=== PATIENT | female | born 1950 | race Caucasian/White ===

== ENCOUNTER 2023-09-17 12:29 | Inpatient (IN) | payer MEDICARE, OTHER, SELFPAY ==
[2023-09-17] VITALS (25 sets, daily range): BP systolic 106–139; BP diastolic 54–86; PULSE 78–110; RESP 14–21; TEMP 36.2–37.2; O2SAT 89–97; BMI 25.7; BMI 26.6
--- NOTE | 2023-09-17 12:45 | ECG_ITS ---
The [facility] Test Date: 2023-09-17 Pat Name: RODRIGUE WALLACE Department: Room: - Gender: Female Forms Analysis Manager: : 1950 Requested By: KANDACE QUIROZ Order Number: [id number] Reading MD: JOSÉ MANUEL QUINTANILLA Measurements Intervals [place] Rate: 98 P: 43 NE: 152 QRS: 36 QRSD: 82 T: 46 QT: 350 QTc: 405 Interpretive Statements 1100 Sinus rhythm [address] depression Inferolateral ST/T wave changes, myocardial ischemia can't be exlcuded 9130 borderline ECG baseline artifact present Electronically Signed On 09-18-2023 7:12:14 EST by JOSÉ MANUEL QUINTANILLA
--- NOTE | 2023-09-17 12:49 | XR_ITS ---
The [address] [address] Patient Name: RODRIGUE WALLACE MRN: [id number] date: 1950 Sex: F Assigned Patient Location: ER Current Patient Location: ED.MAIN Accession/Order Number: [id number] Exam Date: 09/17/2023 13:15 Report Date: 09/17/2023 13:50 At the request of: KIMANI MOHAN Procedure: XR chest 1V EXAMINATION: XR chest 1V HISTORY: altered mentation, cough COMPARISON: No relevant comparison available. FINDINGS: LUNGS: No significant pulmonary parenchymal abnormalities. VASCULATURE: No increased pulmonary vasculature. PLEURA: No pneumothorax, effusion, or pleural thickening. CARDIAC: No cardiomegaly or cardiac silhouette abnormality. MEDIASTINUM: No visible mass or adenopathy. BONES: No fracture or visible bone lesion. OTHER: Negative. XR/XR chest 1V IMPRESSION: 1. No acute cardiopulmonary process. Electronically authenticated by: SARABJIT ZAYAS Date: 09/17/2023 13:50
[2023-09-17 13:11] LABS: SARS-CoV-2 Ag POSITIVE (NEGATIVE)
[2023-09-17] MEDS: 0.9 % SODIUM CHLORIDE 1,000 ML 999 ML IV (13:13)
[2023-09-17] MEDS: INSULIN REGULAR 300 UNITS/3 ML 10 UNIT IV (13:14)
[2023-09-17 13:18] LABS: PCO2 VBG 44.1 mmHg (40.0-52.0)
--- NOTE | 2023-09-17 13:22 | ED.GENADUL1 ---
HPI - General Adult General Chief complaint: Recheck/Abnormal Lab/Rx Stated complaint: hyperglycemia Time Seen by Provider: 09/17/23 12:32 Source: other Source information: EMS Mode of arrival: ambulance Limitations: altered mental status Limitations comment: AxOx2, lethargic History of Present Illness HPI narrative: Patient's insulin pump stopped working. She cannot tell me when this happened or when her last dose insulin was taken. She is confused. EMS brought her to our ED, reported glucose greater than 600 at home. Patient told me that he has Covid but that she tested negative either today or yesterday. She complains of low grade fever, cough, achiness and fatigue. Related Data Home Medications Medication Instructions Recorded Confirmed amlodipine 10 mg tablet 10 mg PO QDAY 09/17/23 09/17/23 carisoprodol 350 mg tablet 350 mg PO BID 09/17/23 09/17/23 celecoxib 200 mg capsule 200 mg PO QDAY 09/17/23 09/17/23 esomeprazole magnesium 40 mg 40 mg PO Q24H 09/17/23 09/17/23 capsule,delayed release ezetimibe 10 mg tablet 10 mg PO QDAY 09/17/23 09/17/23 gabapentin 100 mg capsule 100 mg PO Q12H 09/17/23 09/17/23 hydrocodone 10 mg-acetaminophen 1 tab PO QDAY 09/17/23 09/17/23 325 mg tablet lisinopril 20 mg tablet 20 mg PO QDAY 09/17/23 09/17/23 novolog insulin pump 09/17/23 rosuvastatin 5 mg tablet 5 mg PO QDAY 09/17/23 09/17/23 sertraline 100 mg tablet 100 mg PO Q24H 09/17/23 09/17/23 Allergies Allergy/AdvReac Type Severity Reaction Status Date / Time Penicillins Allergy Verified 09/17/23 12:35 PFSH PFSH Social History Smoking status: Current every day smoker Exam Narrative Exam Narrative: Nurses notes and vital signs reviewed and patient is not hypoxic. afebrile General: Well-appearing and in no apparent distress. Skin: Warm, dry, no pallor noted. No rash. Head: Normocephalic, atraumatic. Neck: Supple, non-tender. No meningismus. No cervical lymphadenopathy. Eye: Pupils are equal, round and EOMI. No scleral icterus. Ears, Nose, Mouth, and Throat: Oral mucosa is dry Cardiovascular: Borderline tachycardia. Respiratory: No accessory muscle use or respiratory distress. Lungs are clear to auscultation, no wheezing, rales or rhonchi Back: No CVA tenderness Musculoskeletal: normal ROM, no calf or popliteal tenderness, no lower extremity edema/swelling GI: Abdomen is soft, non-distended. Normal bowel sounds. No tenderness to palpation. No rebound, guarding, or rigidity noted. Neurological: A&O x4. No cranial nerve dysfunction observed. No truncal ataxia. Moves all extremities. Sensation intact. Psychiatric: Cooperative and interactive. Normal mood and affect. Constitutional Vital Signs, click to edit/add: Last Vital Signs Temp 99 F 09/17/23 12:31 Pulse 99 H 09/17/23 13:40 Resp 21 09/17/23 13:40 BP 125/60 09/17/23 13:40 Pulse Ox 94 L 09/17/23 13:40 O2 Del Method Room Air 09/17/23 13:40 Course Vital Signs Vital signs: Vital Signs Temperature 99 F 09/17/23 12:31 Pulse Rate 97 H 09/17/23 12:31 Respiratory Rate 16 09/17/23 12:31 Blood Pressure 106/86 09/17/23 12:31 Pulse Oximetry 97 09/17/23 12:31 Oxygen Delivery Method Room Air 09/17/23 12:31 Temperature 99 F 09/17/23 12:31 Pulse Rate 99 H 09/17/23 13:40 Respiratory Rate 21 09/17/23 13:40 Blood Pressure 125/60 09/17/23 13:40 Pulse Oximetry 94 L 09/17/23 13:40 Oxygen Delivery Method Room Air 09/17/23 13:40 Medical Decision Making MDM Narrative Medical decision making narrative: Patient was placed on pork cutlet maker and EKG obtained. Blood drawn and sent for evaluation, including blood cultures, lactate, acetone and ammonia. She is given a liter of normal saline IV fluid in addition to the normal saline IV fluids that the patient received by EMS. She was also given 10 units of IV insulin while we awaited the results of her blood testing. CXR obtained. She tested positive for Covid in our ED. Glucose 546 - she had received 10 units regular insulin IV shortly after arrival and I ordered her to receive another `15units of insulin SQ after her glucose came down below 400 on recheck at 1430. Lactate elevated - likely due to hyperglycemia and dehydration but gave IV [place] 1gm. CXR negative. She could not give us a urine sample. Lactulose ordered to be given orally because ammonia was elevated at 43. Case discussed with Dr Ceron - complicated case - will admit SDU in ICU - inpatient. Lab Data Lab results reviewed: Yes I reviewed the patient's lab results Labs: Lab Results 09/17/23 09/17/23 09/17/23 Range/Units 12:35 13:08 14:29 WBC 6.1 (4.0-11.0) 10^3/uL RBC 3.75 L (4.20-5.40) 10^6/uL Hgb 9.4 L (12.0-16.0) g/dL Hct 30.3 L (36.0-48.0) % MCV 80.8 L (81.0-99.0) fL MCH 25.1 L (26.7-34.0) pg MCHC 31.0 (29.9-35.2) g/dL RDW 17.4 H (11.0-15.0) % Plt Count 213 (150-450) 10^3/uL MPV 10.5 (9.5-13.5) fL Neut % (Auto) 85.3 H (43.0-75.0) % Lymph % (Auto) 10.0 L (20.5-60.0) % [place] % (Auto) 4.2 (1.7-12.0) % Eos % (Auto) 0.0 L (0.9-7.0) % Baso % (Auto) 0.0 L (0.2-2.0) % Neut # (Auto) 5.2 (1.4-6.5) 10^3/uL Lymph # (Auto) 0.6 L (1.2-3.8) 10^3/uL [place] # (Auto) 0.3 (0.3-0.8) 10^3/uL Eos # (Auto) 0.0 (0.0-0.7) 10^3/uL Baso # (Auto) 0.0 (0.0-0.1) 10^3/uL Abs Immat Gran (auto) 0.03 (0.00-0.03) 10^3/uL Imm/Tot Granulo (auto) 0.5 (0.0-0.5) % VBG pH 7.270 L (7.330-7.430) VBG pCO2 44.1 (40.0-52.0) mmHg Sodium 127 L (136-145) mmol/L Potassium 3.8 (3.5-5.1) mmol/L Chloride 91 L (98-107) mmol/L Carbon Dioxide 21.7 (21.0-32.0) mmol/L Anion Gap 18.1 BUN 13.0 (7.0-18.0) mg/dL Creatinine 1.33 H (0.55-1.02) mg/dL Est GFR ( Amer) 48 L (>=60) Est GFR (Non-Af Amer) 39 L (>=60) BUN/Creatinine Ratio 9.8 Glucose 546 H* (74-106) mg/dL Lactate 4.3 H* (0.4-2.0) mmol/L Calcium 8.4 L (8.5-10.1) mg/dL Total Bilirubin 0.4 (0.2-1.0) mg/dL AST 19 (15-37) U/L ALT 11 L (14-59) U/L Alkaline Phosphatase 100 (46-116) U/L Ammonia 43 H* (11-32) umol/L Total Protein 6.7 (6.4-8.2) g/dL Albumin 3.3 L (3.4-5.0) g/dL Globulin 3.4 g/dL Albumin/Globulin Ratio 1.0 SARS-CoV-2 (PCR) Positive A (NEGATIVE) POC Glucose 321 H (74-106) mg/dL ECG Data Attestation: I personally reviewed and interpreted this ECG as follows: Interpretation: EKG interpretation: Emergency Department physician interpretation. Normal sinus rhythm at 98bpm. Normal axis, normal intervals and no ST segment elevation or depression. Discharge Plan Discharge Chief Complaint: Recheck/Abnormal Lab/Rx Clinical Impression: COVID, Acute dehydration, Acute hyperglycemia, Acute hepatic encephalopathy Patient Disposition: Admitted As Inpatient Time of Disposition Decision: 13:25
[2023-09-17 13:28] LABS: Hematocrit 30.3 % (36.0-48.0); Hemoglobin 9.4 g/dL (12.0-16.0); Immature Granulocytes Abs Auto 0.03 10^3/uL (0.00-0.03); Immature Granulocytes Pct Auto 0.5 % (0.0-0.5); Lymphocytes Absolute Auto 0.6 10^3/uL (1.2-3.8); Mean Corpuscular Hemoglobin 25.1 pg (26.7-34.0); Mean Corpuscular Volume 80.8 fL (81.0-99.0); Mean Platelet Volume 10.5 fL (9.5-13.5); Monocytes Absolute Auto 0.3 10^3/uL (0.3-0.8); Monocytes Percent Auto 4.2 % (1.7-12.0); Neutrophils Absolute Auto 5.2 10^3/uL (1.4-6.5); Neutrophils Percent Auto 85.3 % (43.0-75.0); Platelet Count 213 10^3/uL (150-450); Red Blood Count 3.75 10^6/uL (4.20-5.40); Red Cell Distribution Width 17.4 % (11.0-15.0); White Blood Count 6.1 10^3/uL (4.0-11.0)
[2023-09-17 13:42] LABS: Ammonia 43 umol/L (11-32); Lactate/Lactic Acid 4.3 mmol/L (0.4-2.0)
[2023-09-17 13:52] LABS: Anion Gap 18.1; Carbon Dioxide 21.7 mmol/L (21.0-32.0); Chloride 91 mmol/L (98-107); Potassium 3.8 mmol/L (3.5-5.1); Sodium 127 mmol/L (136-145)
[2023-09-17 13:53] LABS: Alanine Aminotransferase 11 U/L (14-59); Albumin Level 3.3 g/dL (3.4-5.0); Alkaline Phosphatase 100 U/L (46-116); Aspartate Amino Transferase 19 U/L (15-37); BUN Creatinine Ratio 9.8; Bilirubin Total 0.4 mg/dL (0.2-1.0); Calcium 8.4 mg/dL (8.5-10.1); Estimated GFR (African America 48 (>=60); Estimated GFR (Non-African Ame 39 (>=60); Globulin 3.4 g/dL; Total Protein 6.7 g/dL (6.4-8.2)
[2023-09-17 13:54] LABS: Glucose 546 mg/dL (74-106)
[2023-09-17] MEDS: CEFTRIAXONE 1,000 MG in 0.9 % SODIUM CHLORIDE 50 ML 100 MG IV (14:21)
[2023-09-17 14:31] LABS: Glucometer 321 mg/dL (74-106)
[2023-09-17] MEDS: 0.9 % SODIUM CHLORIDE 500 ML 1000 ML IV (14:33)
[2023-09-17] MEDS: POTASSIUM CHLORIDE 10 MEQ ER TABLET 40 MEQ PO (14:33)
[2023-09-17] MEDS: INSULIN REGULAR 300 UNITS/3 ML 15 UNIT SUBQ (14:47)
[2023-09-17] MEDS: LACTULOSE 10 GM/15 ML UD CUP 30 GM PO (14:57)
[2023-09-17 15:29] LABS: Acetone SMALL (NEGATIVE)
--- NOTE | 2023-09-17 16:14 | P.HP_ITS ---
H&P: HPI History of Present Illness Chief complaint: hyperglycemia, Covid Narrative: 09/17/23 4658 This is a 73-year-old female patient with a past medical history as outlined below including type 1 diabetes (diagnosed at 51) managed with an insulin pump, HTN, hyperlipidemia, and depression; who presented to the ED via EMS due to reported altered mental status and hyperglycemia at home. The patient is a very poor historian as she has poor memory of the events of last night. She reports that her is ill with COVID-19 and she began to experience symptoms in the last 24 hours herself including mildly productive cough and bodyaches. She remembers being extremely fatigued last night and her telling her she had to check her blood sugar but she was too tired and too confused to figure out how to use her glucometer. Her blood sugar this morning was over 600 and she now reports that her pump had run out of insulin some time during the night but that she slept through all the alarms and was too confused to replace the insulin in her pump. She reports mild nausea last night, but denies vomiting. She has a remote tobacco use history and no significant alcohol abuse history and does not drink alcohol at all anymore. Workup in the ED revealed severe hyperglycemia (546), hyponatremia (127), lactic acidosis (4.3), acidosis w/ low VpH (7.27), Anion gap (18.1), hyperammonemia (43). In addition her COVID swab was positive. She was given 3L IVF boluses between EMS and the ED. She was also given a total of 25 un of regular insulin in the ED w/ KCL supplementation of 40 meq. No infectious source was identified, but she was given one dose of Rocephin in the ED d/t her lactic acidosis. She is being admitted as an inpatient for acute DKA, hyperglycemia, covid 19 infection, acute hepatic encephalopathy. At the time of my admission the pt's mentation is much clearer. She has poor recall of onset of symptoms or the events of last night. She can now identify that her insulin pump is functioning properly, but she ran out of insulin overnight. She is alert and oriented x 3. She continues to report mild URI symptoms and remains afebrile to date. Review of Systems ROS Status of ROS 10 or more systems reviewed and unremark able except as noted in history and below PFSH PFSH Medical History (Updated 09/17/23 @ 16:49 by Opal Beavers NP) GERD (gastroesophageal reflux disease) ?K21.9 - Gastro-esophageal reflux disease without esophagitis (ICD-10) Chronic pain ?G89.29 - Other chronic pain (ICD-10) Depression ?F32.A - Depression, unspecified (ICD-10) Hyperlipidemia ?E78.5 - Hyperlipidemia, unspecified (ICD-10) HTN (hypertension) ?I10 - Essential (primary) hypertension (ICD-10) Diabetes type I ?E10.9 - Type 1 diabetes mellitus without complications (ICD-10) Social History Smoking status: Current every day smoker Meds Home Medications and Allergies Home Medications Medication Instructions Recorded Confirmed Type amlodipine 10 mg tablet 10 mg PO QDAY 09/17/23 09/17/23 History carisoprodol 350 mg tablet 350 mg PO BID 09/17/23 09/17/23 History celecoxib 200 mg capsule 200 mg PO QDAY 09/17/23 09/17/23 History esomeprazole magnesium 40 mg 40 mg PO QDAY 09/17/23 09/17/23 History capsule,delayed release gabapentin 100 mg capsule 100 mg PO BID 09/17/23 09/17/23 History hydrocodone 10 mg-acetaminophen 1 tab PO Q6H PRN pain 09/17/23 09/17/23 History 325 mg tablet lisinopril 20 mg tablet 20 mg PO QDAY 09/17/23 09/17/23 History novolog insulin pump 09/17/23 History rosuvastatin 5 mg tablet 5 mg PO QDAY 09/17/23 09/17/23 History sertraline 100 mg tablet 100 mg PO Q24H 09/17/23 09/17/23 History Allergies Allergy/AdvReac Type Severity Reaction Status Date / Time Penicillins Allergy Verified 09/17/23 12:35 Exam Constitutional Vital Signs, click to edit/add: Last Vital Signs Temp 99 F 09/17/23 12:31 Pulse 99 H 09/17/23 13:40 Resp 21 09/17/23 13:40 BP 139/73 09/17/23 15:00 Pulse Ox 94 L 09/17/23 13:40 O2 Del Method Room Air 09/17/23 13:40 Common normals: no apparent distress, oriented x3, alert and well nourished General appearance: cooperative Orientation/consciousness: Yes awake HENMT Common normals: normocephalic, head/scalp atraumatic, hearing grossly normal bilaterally and external nose normal Head and scalp: normocephalic and atraumatic Eye Common normals: PERRL, EOMs intact bilaterally, conjunctivae normal and no scleral icterus Alignment: alignment normal Eyelid: eyelids normal Neck & C-Spine Common normals: full ROM, supple and no JVD Chest Common normals: inspection of chest normal Chest: symmetrical chest wall rise Respiratory Common normals: normal respiratory effort, no retractions, no use of accessory muscles and clear to auscultation bilaterally Effort & inspection: able to speak in complete sentences Cardio Common normals: no JVD, regular rate, regular rhythm, S1 normal heart sound, S2 normal heart sound, no gallops, no clicks, no murmurs, no rub and peripheral pulses 2+ throughout GI Common normals: Normal to inspection, nondistended, normoactive bowel sounds present, soft to palpation, non-tender, no hepatosplenomegaly, no masses and no bruits Bladder/kidney exam: bladder normal to palpation Back & Pelvis Common normals: thoracic and lumbar spine normal to inspection Extremity Common normals: normal capillary refill and no pedal edema General: normal exam except as noted; no clubbing and no cyanosis Neuro [place] Coma Scale: GCS not evaluated Common normals: CN's II-XII intact bilaterally, moves all extremities, no focal motor deficits and no sensory deficits noted Speech: speech normal Motor exam: strength 5/5 throughout Psych Common normals: mental status grossly normal, thought process normal, affect normal and activity/motor behavior normal Results Labs Labs: Short CBC 09/17/23 Range/Units 13:08 WBC 6.1 (4.0-11.0) 10^3/uL Hgb 9.4 L (12.0-16.0) g/dL Hct 30.3 L (36.0-48.0) % Plt Count 213 (150-450) 10^3/uL BMP 09/17/23 13:08 Sodium 127 L Potassium 3.8 Chloride 91 L Carbon Dioxide 21.7 BUN 13.0 Creatinine 1.33 H Glucose 546 H* Calcium 8.4 L Liver Function 09/17/23 Range/Units 13:08 Total Bilirubin 0.4 (0.2-1.0) mg/dL AST 19 (15-37) U/L ALT 11 L (14-59) U/L Alkaline Phosphatase 100 (46-116) U/L Albumin 3.3 L (3.4-5.0) g/dL ABG ABG results: 09/17/23 13:08 VBG pH 7.270 L VBG pCO2 44.1 Pulse Oximetry Attestation: I have reviewed the pertinent pulse oximetry results. ECG Attestation: ?I have reviewed the pertinent ECG results. Interpretation: Sinus rhythm Minimal ST depression Nonspecific ST and T wave abnormality Borderline ECG No previous ECG available for comparison Imaging Chest x-ray: Attestation: I have reviewed the pertinent imaging results. Radiologist's impression: IMPRESSION: 1. No acute cardiopulmonary process. Assessment and Plan Assessment and Plan (1) DKA, type 1: Assessment and Plan: ACUTE * Adm inpatient * 2/2 acute hyperglycemia w/ concurrent COVID 19 infection, lactic acidosis, anion gap acidosis * 3L IVF boluses given in ED * 25 un regular insulin given in ED * KCL 40 meq PO given in ED * Current BS 370 mg/dl * LR at 150/hr * Repeat BMP at 1700 to monitor anion gap * Check potassium q4h and replete as needed * Insulin: * 15 un Levemir at hs * Med dose SSI correction * Low threshold to initiate an insulin gtt pending clinical course * No ABX indicated at this time w/ neg PCT (<0.05) and known viral COVID infection * CBC, CMP daily (2) Acute hepatic encephalopathy: Assessment and Plan: ACUTE * 2/2 hyperglycemia/altered protein metabolism * Lactulose given in ED * repeat ammonia level in AM and treat if indicated (3) COOKIE (acute kidney injury): Assessment and Plan: ACUTE * Presumed acute, no previous lab work so baseline renal function is unknown * 2/2 acute dehydration w/ dka * IVF as above * Hold renal toxic medications * Daily CMP (4) COVID: Assessment and Plan: ACUTE * Positive swab and known exposure to COVID pos * mild sx so far (cough, myalgias) * Paxlovid x 5 days * IVF/supportive care (5) Diabetes type I: Assessment and Plan: CHRONIC * Home insulin pump removed - Insulin reservoir empty * See DKA above (6) HTN (hypertension): Assessment and Plan: CHRONIC * Continue home amlodipine * Hold home ACEi d/t renal toxicity * PRN hydralazine IVP for uncontrolled HTN (7) Hyperlipidemia: Assessment and Plan: CHRONIC * Hold home statin during acute hospitalization, resume at d/c (8) Depression: Assessment and Plan: CHRONIC * Hold home sertraline for now (9) Chronic pain: Assessment and Plan: CHRONIC * Hold home [place], carisoprodol, celebrex, gabapentin, Sertraline for now (10) GERD (gastroesophageal reflux disease):
[2023-09-17] MEDS: LACTATED RINGER'S SOLUTION 1,000 ML 150 ML IV ×2 (16:20→23:09)
[2023-09-17] MEDS: AMLODIPINE BESYLATE 5 MG TABLET 10 MG PO (16:20)
[2023-09-17 16:29] LABS: Glucometer 169 mg/dL (74-106)
[2023-09-17 16:59] LABS: Lactate/Lactic Acid 2.5 mmol/L (0.4-2.0)
[2023-09-17] MEDS: INSULIN ASPART 300 UNIT/3 ML PEN SUBQ ×3 (17:20→23:59)
[2023-09-17] MEDS: ENOXAPARIN SODIUM 40 MG/0.4 ML SYRINGE SUBQ (17:20)
[2023-09-17 17:44] LABS: Anion Gap 9.9; BUN Creatinine Ratio 11.4; Calcium 8.4 mg/dL (8.5-10.1); Carbon Dioxide 24.4 mmol/L (21.0-32.0); Chloride 102 mmol/L (98-107); Estimated GFR (African America >60 (>=60); Estimated GFR (Non-African Ame >60 (>=60); Glucose 80 mg/dL (74-106); Potassium 4.3 mmol/L (3.5-5.1); Sodium 132 mmol/L (136-145)
[2023-09-17 21:27] LABS: Lactate/Lactic Acid 1.8 mmol/L (0.4-2.0)
[2023-09-17] MEDS: ONDANSETRON PF 4 MG/2 ML VIAL IV (21:48)
[2023-09-17] MEDS: ACETAMINOPHEN 325 MG TABLET 650 MG PO (21:49)
[2023-09-17] MEDS: INSULIN DETEMIR 300 UNIT/3 ML INSULN.PEN 15 UNIT SUBQ (21:52)
[2023-09-18] VITALS (20 sets, daily range): BP systolic 101–159; BP diastolic 56–83; PULSE 70–108; RESP 14–18; TEMP 36.6–37.2; O2SAT 92–100
[2023-09-18 02:25] LABS: Potassium 4.2 mmol/L (3.5-5.1)
[2023-09-18] MEDS: HYDROCODONE/ACET 10-325 MG TABLET 1 TAB PO ×4 (04:38→23:36)
[2023-09-18] MEDS: INSULIN ASPART 300 UNIT/3 ML PEN SUBQ ×6 (04:42→23:36)
[2023-09-18] MEDS: LACTATED RINGER'S SOLUTION 1,000 ML 150 ML IV (04:50)
[2023-09-18 05:40] LABS: Hematocrit 28.9 % (36.0-48.0); Immature Granulocytes Abs Auto 0.01 10^3/uL (0.00-0.03); Immature Granulocytes Pct Auto 0.1 % (0.0-0.5); Lymphocytes Absolute Auto 1.7 10^3/uL (1.2-3.8); Lymphocytes Percent Auto 23.9 % (20.5-60.0); Mean Corpuscular HGB Conc 31.1 g/dL (29.9-35.2); Mean Corpuscular Hemoglobin 24.5 pg (26.7-34.0); Mean Corpuscular Volume 78.7 fL (81.0-99.0); Monocytes Absolute Auto 0.6 10^3/uL (0.3-0.8); Monocytes Percent Auto 8.4 % (1.7-12.0); Neutrophils Absolute Auto 4.7 10^3/uL (1.4-6.5); Neutrophils Percent Auto 67.6 % (43.0-75.0); Platelet Count 226 10^3/uL (150-450); Red Blood Count 3.67 10^6/uL (4.20-5.40); Red Cell Distribution Width 16.9 % (11.0-15.0); White Blood Count 6.9 10^3/uL (4.0-11.0)
[2023-09-18 05:57] LABS: Ammonia 20 umol/L (11-32)
[2023-09-18 06:01] LABS: Alanine Aminotransferase 14 U/L (14-59); Albumin Globulin Ratio 0.9; Alkaline Phosphatase 85 U/L (46-116); Anion Gap 12.6; Aspartate Amino Transferase 20 U/L (15-37); BUN Creatinine Ratio 5.1; Bilirubin Total 0.2 mg/dL (0.2-1.0); Calcium 8.6 mg/dL (8.5-10.1); Chloride 96 mmol/L (98-107); Estimated GFR (African America >60 (>=60); Estimated GFR (Non-African Ame >60 (>=60); Globulin 3.4 g/dL; Glucose 204 mg/dL (74-106); Potassium 3.6 mmol/L (3.5-5.1); Sodium 130 mmol/L (136-145); Total Protein 6.4 g/dL (6.4-8.2)
[2023-09-18] MEDS: OMEPRAZOLE 40 MG CAPSULE.DR PO (06:43)
[2023-09-18] MEDS: AMLODIPINE BESYLATE 5 MG TABLET 10 MG PO (08:47)
[2023-09-18] MEDS: LACTATED RINGER'S SOLUTION 1,000 ML 100 ML IV ×2 (09:04→23:38)
--- NOTE | 2023-09-18 11:42 | CM.NOTE ---
Rounds made with cara Weinstein to transfer to med-surg floor today.
--- NOTE | 2023-09-18 12:00 | PM.IMPN1 ---
Progress Note: A&P Assessment and Plan (1) DKA, type 1: Assessment and Plan: Presented with mild DKA. Gap closed. On levemir 15 units along with SSI. Closely monitor blood glucose. She forgot to replace insulin in her insulin pump and that's probably resulted in DKA. Qualifiers: Diabetes mellitus complication detail: without coma Qualified Code(s): E10.10 - Type 1 diabetes mellitus with ketoacidosis without coma (2) Hyponatremia: Assessment and Plan: Improving. C/w IVF. Likely hypovolemic hypoantremia (3) Metabolic encephalopathy: Assessment and Plan: due to hyperglycemia, hyponatremia, dehydration, DKA, Hyper ammonimenia Back to baseline. Monitor closely. (4) Acute hepatic encephalopathy: Assessment and Plan: Received lactulose on admission. Ammonia is now normal. Monitor. No prior hx of liver disease. (5) COVID: Assessment and Plan: Symptoms started 2 weeks ago. Has mild cough but no SOB, hypoxia. Monitor. No need for paxlovid. (6) Diabetes type I: Assessment and Plan: Has insulin pump that she disconnected. She did not replace her insulin likely because of confusion and disorientation. Currently on Levemir 15 units alongwith SSI. Qualifiers: Diabetes mellitus complication status: without complication Qualified Code(s): E10.9 - Type 1 diabetes mellitus without complications (7) HTN (hypertension): Assessment and Plan: Restarted lisinopril. C/w amlodipine. Qualifiers: Hypertension type: primary hypertension Qualified Code(s): I10 - Essential (primary) hypertension (8) Hyperlipidemia: Assessment and Plan: c/w crestor. Qualifiers: Hyperlipidemia type: unspecified Qualified Code(s): E78.5 - Hyperlipidemia, unspecified (9) Depression: Assessment and Plan: c/w zoloft for now. Qualifiers: Depression Type: major depressive disorder Major depression recurrence: unspecified whether recurrent Active/Remission status: in full remission Qualified Code(s): F32.5 - Major depressive disorder, single episode, in full remission (10) GERD (gastroesophageal reflux disease): Assessment and Plan: c/w nexium Qualifiers: Esophagitis presence: without esophagitis Qualified Code(s): K21.9 - Gastro-esophageal reflux disease without esophagitis Plan Monitor electrolytes, FSBS and mental status. Possible d/c tomorrow if everything continues to improve and remains stable. Internal Medicine - PN: Subj Subjective Interval history: Seen and examined. Doing well today. Back to her baseline mental status. FSBS at goal. Tolerating PO diet. Denies any resp symptoms Exam Constitutional Vital Signs, click to edit/add: Last Vital Signs Temp 98.2 F 09/18/23 03:26 Pulse 82 09/18/23 06:00 Resp 14 09/18/23 04:00 BP 137/62 09/18/23 03:26 Pulse Ox 100 09/18/23 03:26 O2 Del Method Room Air 09/17/23 22:08 Documenting provider has reviewed patient's vital signs: yes Common normals: no apparent distress and oriented x3 General appearance: cooperative HENMT Common normals: normocephalic and head/scalp atraumatic Head and scalp: normocephalic and atraumatic Respiratory Common normals: normal respiratory effort and clear to auscultation bilaterally Effort & inspection: able to speak in complete sentences Auscultation: clear to auscultation bilaterally Cardio Common normals: regular rate, S1 normal heart sound and S2 normal heart sound Rate: regular rate Heart sounds: S1 normal and S2 normal GI Common normals: Normal to inspection, nondistended, normoactive bowel sounds present, soft to palpation, non-tender and no hepatosplenomegaly Palpation: soft and no hepatosplenomegaly Extremity Common normals: no clubbing, cyanosis or edema Neuro Common normals: oriented x3, moves all extremities and no focal motor deficits Psych Common normals: mental status grossly normal, denies hallucinations, denies homicidal ideation and denies suicidal ideation Internal Medicine - PN: Obj Da Labs Labs: Laboratory Results - last 24 hr 09/17/23 09/17/23 09/17/23 12:35 13:08 14:29 WBC 6.1 RBC 3.75 L Hgb 9.4 L Hct 30.3 L MCV 80.8 L MCH 25.1 L MCHC 31.0 RDW 17.4 H Plt Count 213 MPV 10.5 Neut % (Auto) 85.3 H Lymph % (Auto) 10.0 L [place] % (Auto) 4.2 Eos % (Auto) 0.0 L Baso % (Auto) 0.0 L Neut # (Auto) 5.2 Lymph # (Auto) 0.6 L [place] # (Auto) 0.3 Eos # (Auto) 0.0 Baso # (Auto) 0.0 Abs Immat Gran (auto) 0.03 Imm/Tot Granulo (auto) 0.5 VBG pH 7.270 L VBG pCO2 44.1 Sodium 127 L Potassium 3.8 Chloride 91 L Carbon Dioxide 21.7 Anion Gap 18.1 BUN 13.0 Creatinine 1.33 H Est GFR ( Amer) 48 L Est GFR (Non-Af Amer) 39 L BUN/Creatinine Ratio 9.8 Glucose 546 H* Lactate 4.3 H* Calcium 8.4 L Total Bilirubin 0.4 AST 19 ALT 11 L Alkaline Phosphatase 100 Ammonia 43 H* Total Protein 6.7 Albumin 3.3 L Globulin 3.4 Albumin/Globulin Ratio 1.0 Acetone, Qual Small A SARS-CoV-2 (PCR) Positive A POC Glucose 321 H 09/17/23 09/17/23 09/17/23 16:29 16:30 17:29 WBC RBC Hgb Hct MCV MCH MCHC RDW Plt Count MPV Neut % (Auto) Lymph % (Auto) [place] % (Auto) Eos % (Auto) Baso % (Auto) Neut # (Auto) Lymph # (Auto) [place] # (Auto) Eos # (Auto) Baso # (Auto) Abs Immat Gran (auto) Imm/Tot Granulo (auto) VBG pH VBG pCO2 Sodium 132 L Potassium 4.3 Chloride 102 Carbon Dioxide 24.4 Anion Gap 9.9 BUN 9.0 Creatinine 0.79 Est GFR ( Amer) >60 Est GFR (Non-Af Amer) >60 BUN/Creatinine Ratio 11.4 Glucose 80 Lactate 2.5 H* Calcium 8.4 L Total Bilirubin AST ALT Alkaline Phosphatase Ammonia Total Protein Albumin Globulin Albumin/Globulin Ratio Acetone, Qual SARS-CoV-2 (PCR) POC Glucose 169 H 09/17/23 09/18/23 09/18/23 21:05 02:13 05:08 WBC 6.9 RBC 3.67 L Hgb 9.0 L Hct 28.9 L MCV 78.7 L MCH 24.5 L MCHC 31.1 RDW 16.9 H Plt Count 226 MPV 10.0 Neut % (Auto) 67.6 Lymph % (Auto) 23.9 [place] % (Auto) 8.4 Eos % (Auto) 0.0 L Baso % (Auto) 0.0 L Neut # (Auto) 4.7 Lymph # (Auto) 1.7 [place] # (Auto) 0.6 Eos # (Auto) 0.0 Baso # (Auto) 0.0 Abs Immat Gran (auto) 0.01 Imm/Tot Granulo (auto) 0.1 VBG pH VBG pCO2 Sodium 130 L Potassium 4.0 4.2 3.6 Chloride 96 L Carbon Dioxide 25.0 Anion Gap 12.6 BUN 3.0 L Creatinine 0.59 Est GFR ( Amer) >60 Est GFR (Non-Af Amer) >60 BUN/Creatinine Ratio 5.1 Glucose 204 H Lactate 1.8 Calcium 8.6 Total Bilirubin 0.2 AST 20 ALT 14 Alkaline Phosphatase 85 Ammonia 20 Total Protein 6.4 Albumin 3.0 L Globulin 3.4 Albumin/Globulin Ratio 0.9 Acetone, Qual SARS-CoV-2 (PCR) POC Glucose 09/18/23 09:09 WBC RBC Hgb Hct MCV MCH MCHC RDW Plt Count MPV Neut % (Auto) Lymph % (Auto) [place] % (Auto) Eos % (Auto) Baso % (Auto) Neut # (Auto) Lymph # (Auto) [place] # (Auto) Eos # (Auto) Baso # (Auto) Abs Immat Gran (auto) Imm/Tot Granulo (auto) VBG pH VBG pCO2 Sodium Potassium 4.0 Chloride Carbon Dioxide Anion Gap BUN Creatinine Est GFR ( Amer) Est GFR (Non-Af Amer) BUN/Creatinine Ratio Glucose Lactate Calcium Total Bilirubin AST ALT Alkaline Phosphatase Ammonia Total Protein Albumin Globulin Albumin/Globulin Ratio Acetone, Qual SARS-CoV-2 (PCR) POC Glucose
--- NOTE | 2023-09-18 12:44 | CM.NOTE ---
Important Message From Medicare discussed with pt, pt verbalizes understanding and signs paper. Original given to pt and copy placed on pt's chart.
[2023-09-18 13:39] LABS: Potassium 3.4 mmol/L (3.5-5.1)
[2023-09-18] MEDS: LISINOPRIL 20 MG TABLET PO (13:50)
[2023-09-18] MEDS: ENOXAPARIN SODIUM 40 MG/0.4 ML SYRINGE SUBQ (17:16)
[2023-09-18 17:27] LABS: Potassium 4.7 mmol/L (3.5-5.1)
[2023-09-18] MEDS: INSULIN DETEMIR 300 UNIT/3 ML INSULN.PEN 15 UNIT SUBQ (21:22)
[2023-09-18 21:27] LABS: Potassium 3.7 mmol/L (3.5-5.1)
[2023-09-19] VITALS (8 sets, daily range): BP systolic 138–156; BP diastolic 70–79; PULSE 70–92; RESP 18–20; TEMP 36.7–36.9; O2SAT 92–94
[2023-09-19] MEDS: INSULIN ASPART 300 UNIT/3 ML PEN SUBQ ×3 (03:43→12:06)
[2023-09-19] MEDS: OMEPRAZOLE 40 MG CAPSULE.DR PO (05:01)
[2023-09-19 06:07] LABS: Basophils Percent Auto 0.2 % (0.2-2.0); Eosinophils Percent Auto 0.2 % (0.9-7.0); Hematocrit 29.3 % (36.0-48.0); Hemoglobin 9.1 g/dL (12.0-16.0); Immature Granulocytes Abs Auto 0.01 10^3/uL (0.00-0.03); Immature Granulocytes Pct Auto 0.2 % (0.0-0.5); Lymphocytes Percent Auto 30.2 % (20.5-60.0); Mean Corpuscular HGB Conc 31.1 g/dL (29.9-35.2); Mean Corpuscular Hemoglobin 24.4 pg (26.7-34.0); Mean Corpuscular Volume 78.6 fL (81.0-99.0); Mean Platelet Volume 9.7 fL (9.5-13.5); Monocytes Absolute Auto 0.4 10^3/uL (0.3-0.8); Monocytes Percent Auto 6.7 % (1.7-12.0); Neutrophils Absolute Auto 4.1 10^3/uL (1.4-6.5); Neutrophils Percent Auto 62.5 % (43.0-75.0); Platelet Count 234 10^3/uL (150-450); Red Blood Count 3.73 10^6/uL (4.20-5.40); Red Cell Distribution Width 17.2 % (11.0-15.0); White Blood Count 6.5 10^3/uL (4.0-11.0)
[2023-09-19 06:26] LABS: Ammonia <10 umol/L (11-32)
[2023-09-19 06:32] LABS: Alanine Aminotransferase 12 U/L (14-59); Albumin Globulin Ratio 0.9; Albumin Level 3.1 g/dL (3.4-5.0); Alkaline Phosphatase 84 U/L (46-116); Anion Gap 15.2; Aspartate Amino Transferase 24 U/L (15-37); BUN Creatinine Ratio 5.5; Bilirubin Total 0.3 mg/dL (0.2-1.0); Calcium 8.8 mg/dL (8.5-10.1); Carbon Dioxide 27.5 mmol/L (21.0-32.0); Chloride 93 mmol/L (98-107); Estimated GFR (African America >60 (>=60); Estimated GFR (Non-African Ame >60 (>=60); Globulin 3.4 g/dL; Glucose 358 mg/dL (74-106); Potassium 3.7 mmol/L (3.5-5.1); Sodium 132 mmol/L (136-145); Total Protein 6.5 g/dL (6.4-8.2)
[2023-09-19] MEDS: INSULIN ASPART 300 UNIT/3 ML PEN 15 UNIT SUBQ (06:40)
[2023-09-19] MEDS: INSULIN DETEMIR 300 UNIT/3 ML INSULN.PEN 10 UNIT SUBQ (06:41)
[2023-09-19 07:30] LABS: Glucometer 381 mg/dL (74-106)
[2023-09-19] MEDS: AMLODIPINE BESYLATE 5 MG TABLET 10 MG PO (08:13)
[2023-09-19] MEDS: HYDROCODONE/ACET 10-325 MG TABLET 1 TAB PO (08:13)
[2023-09-19] MEDS: LISINOPRIL 20 MG TABLET PO (08:13)
[2023-09-19] MEDS: LACTATED RINGER'S SOLUTION 1,000 ML 100 ML IV (09:54)
--- NOTE | 2023-09-19 10:38 | PT.DAILY ---
Physical Therapy Daily Note PT Daily Note/Assess Start: 09/19/23 10:35 Freq: Status: Active Protocol: Document 09/19/23 10:35 [place] (Rec: 09/19/23 10:38 [place] [id number]) Physical Therapy Daily Note/Assessment Time In/Time Out Time In 10:10 Time Out 10:23 Pain In Pain N/A Pain Out Pain N/A Subjective Subjective Pt supine upon arrival. Agrees to PT. Reports feeling confused. Therapeutic Exercise Time Therapeutic Exercise Minutes (minutes) 3 Therapeutic Exercise Units 0 Therapeutic Exercise Treatment Therapeutic Exercise Treatment Seated ex complete while sitting EOB unsupported 10x ea . Therapeutic Activity Time Therapeutic Activity Minutes (minutes) 8 Therapeutic Activity Units 1 Therapeutic Activity Treatment Bed Mobility Ability Standby Assistance Chair Transfer Ability Standby Assistance Therapeutic Activity Comments Supine>sit SBA. Needs assistance to zoraida shoes. Sit> stand SBA. Pt amb 100' in room with IV pole SBA. Spo2 94% when checked after amb on room air. Pt then sits EOB to complete seated ex, after seated ex Spo2 92% on room air . Pt returned to supine SBA with pillow placed under legs, call light in reach and needs met. Total Physical Therapy Time Total Therapy Minutes 11 Total Physical Therapy Units 1 Summary Daily Note Summary Improving gait endurance. SpO2 is a little lower today with activity vs yesterday.
--- NOTE | 2023-09-19 11:51 | CM.NOTE ---
Rounding with Dr. Ceron. Discussed discharge today. No malfunction of insulin pump it was patient whom forgot to fill pump, per Dr. Ceron. No anticipated discharge needs. at bedside at this time.
--- NOTE | 2023-09-19 15:29 | PM.DS1 ---
DS: Providers Provider Date of admission: 09/17/23 15:18 Primary care physician: KANDACE QUIROZ Consults: 09/17/23 15:08 Occupational Therapy Eval and Treat Routine Reason for consultation: Ambulatory dysfunction/weakness Physical Therapy Eval and Treat Routine Reason for consultation: Ambulatory dysfunction/weakness Attending physician on discharge: Shaikh Osmany Discharging clinician: Shaikh Osmany Anticipated date of discharge: 09/19/23 DS: Diagnosis Discharge Diagnosis (1) DKA, type 1: Assessment and plan: Resolved with IV fluids and SQ insulin. Qualifiers: Diabetes mellitus complication detail: without coma Qualified Code(s): E10.10 - Type 1 diabetes mellitus with ketoacidosis without coma (2) Hyponatremia: Assessment and plan: due to dehydration, hyperglycemia. Resolved. (3) Metabolic encephalopathy: Assessment and plan: Due to dehydration, DKA, hyperammonimia. Resolved. Back to baseline. (4) Acute hepatic encephalopathy: Assessment and plan: Back to baseline. no known chronic liver disease. (5) COVID: Assessment and plan: No resp symptoms. No need for steroids abhishek due to T1 DM. D/c on albuterol as needed (6) Diabetes type I: Assessment and plan: on insulin pump. C/w same Qualifiers: Diabetes mellitus complication status: without complication Qualified Code(s): E10.9 - Type 1 diabetes mellitus without complications (7) HTN (hypertension): Assessment and plan: Resume home meds Qualifiers: Hypertension type: primary hypertension Qualified Code(s): I10 - Essential (primary) hypertension (8) Hyperlipidemia: Assessment and plan: c/w statin Qualifiers: Hyperlipidemia type: unspecified Qualified Code(s): E78.5 - Hyperlipidemia, unspecified (9) Depression: Assessment and plan: c/w home meds. stable. Qualifiers: Active/Remission status: in full remission Depression Type: major depressive disorder Major depression recurrence: unspecified whether recurrent Qualified Code(s): F32.5 - Major depressive disorder, single episode, in full remission (10) GERD (gastroesophageal reflux disease): Assessment and plan: c/w PPI Qualifiers: Esophagitis presence: without esophagitis Qualified Code(s): K21.9 - Gastro-esophageal reflux disease without esophagitis DS: Summary Hospital Course Hospital Course: Patient presented with confusion, weakness, hyperglycemia. Work up in ED revealed mild DKA, hyperammonimia, dehydration, hyponatremia and COVID infection. She was treated with IVF, SQ insulin, with improvement in her blood glucose, resolution of DKA and electrolyte abnormalities she presented with originally. Her mental status also returned to baseline. Patient stable for discharge. She can resume her insulin pump at home. No resp symptoms upon discharge. f/u PCP in one week Status at Discharge Functional status at discharge: independent ambulation Overall status at discharge: patient is back to baseline Time Spent with Patient Time attestation: Total time spent providing and/or coordinating discharge services: Time spent: greater than 30 minutes Exam Constitutional Vital Signs, click to edit/add: Last Vital Signs Temp 98.1 F 09/19/23 11:19 Pulse 70 09/19/23 11:19 Resp 20 09/19/23 11:19 BP 139/76 09/19/23 11:19 Pulse Ox 94 L 09/19/23 11:19 O2 Del Method Room Air 09/19/23 08:00 Documenting provider has reviewed patient's vital signs: yes Common normals: no apparent distress and oriented x3 General appearance: cooperative Respiratory Common normals: normal respiratory effort and clear to auscultation bilaterally Effort & inspection: able to speak in complete sentences Auscultation: clear to auscultation bilaterally Cardio Common normals: regular rate, S1 normal heart sound and S2 normal heart sound Rate: regular rate Heart sounds: S1 normal and S2 normal Extremity Common normals: no clubbing, cyanosis or edema Neuro Common normals: oriented x3, moves all extremities and no focal motor deficits Psych Common normals: mental status grossly normal, denies hallucinations, denies homicidal ideation and denies suicidal ideation DS: Data Data Completed and Pending Labs on day of discharge: Labs from last 24 hours 09/19/23 09/19/23 09/18/23 07:28 05:55 21:09 WBC 6.5 RBC 3.73 L Hgb 9.1 L Hct 29.3 L MCV 78.6 L MCH 24.4 L MCHC 31.1 RDW 17.2 H Plt Count 234 MPV 9.7 Neut % (Auto) 62.5 Lymph % (Auto) 30.2 [place] % (Auto) 6.7 Eos % (Auto) 0.2 L Baso % (Auto) 0.2 Neut # (Auto) 4.1 Lymph # (Auto) 2.0 [place] # (Auto) 0.4 Eos # (Auto) 0.0 Baso # (Auto) 0.0 Abs Immat Gran (auto) 0.01 Imm/Tot Granulo (auto) 0.2 Sodium 132 L Potassium 3.7 3.7 Chloride 93 L Carbon Dioxide 27.5 Anion Gap 15.2 BUN 3.0 L Creatinine 0.55 Est GFR ( Amer) >60 Est GFR (Non-Af Amer) >60 BUN/Creatinine Ratio 5.5 Glucose 358 H Calcium 8.8 Total Bilirubin 0.3 AST 24 ALT 12 L Alkaline Phosphatase 84 Ammonia <10 L Total Protein 6.5 Albumin 3.1 L Globulin 3.4 Albumin/Globulin Ratio 0.9 POC Glucose 381 H 09/18/23 17:12 WBC RBC Hgb Hct MCV MCH MCHC RDW Plt Count MPV Neut % (Auto) Lymph % (Auto) [place] % (Auto) Eos % (Auto) Baso % (Auto) Neut # (Auto) Lymph # (Auto) [place] # (Auto) Eos # (Auto) Baso # (Auto) Abs Immat Gran (auto) Imm/Tot Granulo (auto) Sodium Potassium 4.7 Chloride Carbon Dioxide Anion Gap BUN Creatinine Est GFR ( Amer) Est GFR (Non-Af Amer) BUN/Creatinine Ratio Glucose Calcium Total Bilirubin AST ALT Alkaline Phosphatase Ammonia Total Protein Albumin Globulin Albumin/Globulin Ratio POC Glucose Preliminary micro results at discharge 09/17/23 13:08 Blood Culture Result 1 - Preliminary Blood NO GROWTH AT 36-48 HOURS. FINAL TO FOLLOW. 09/17/23 13:05 - Preliminary Blood NO GROWTH AT 36-48 HOURS. FINAL TO FOLLOW. Discharge Plan Discharge Disposition: Home, Self-Care Discharge Medications: New albuterol sulfate [Ventolin HFA] 90 mcg/actuation HFA aerosol inhaler 2 inh inhalation Q4H PRN (Reason: shortness of breath or wheezing) Qty: 6.7 0RF Continued amlodipine 10 mg tablet 10 mg PO QDAY esomeprazole magnesium 40 mg capsule,delayed release(DR/EC) 40 mg PO QDAY lisinopril 20 mg tablet 20 mg PO QDAY rosuvastatin 5 mg tablet 5 mg PO QDAY sertraline 100 mg tablet 100 mg PO Q24H celecoxib 200 mg capsule 200 mg PO QDAY carisoprodol 350 mg tablet 350 mg PO BID gabapentin 100 mg capsule 100 mg PO BID hydrocodone-acetaminophen 10-325 mg tablet 1 tab PO Q6H PRN (Reason: pain) novolog insulin pump Activity: increase activity as tolerated Diet: advance to your usual diet Patient Instructions: Dehydration (DC), Acute Kidney Injury (GEN), Hyponatremia (DC), Hepatic Encephalopathy (GEN), COVID-19 (Coronavirus Disease 2019) (DC) Forms: Portal Instructions Follow Up Appointments: Patient is to schedule a follow up appt. with Dr. Quiroz for 5-7 days following discharge. [phone] Discharge Date/Time: 09/19/23 14:25
== END 2023-09-19 14:25 | disposition home or self-care (01) | DRG 637 ==
LOC: ER 13:48 → ICU 15:22 → MS 09-18 18:46
PROVIDERS: Nurse Practitioner; Admitting Provider Internal Medicine; Emergency Provider Emergency Medicine; PCP Internal Medicine; Visit Provider Internal Medicine
DX: E10.10 Type 1 diabetes mellitus with ketoacidosis without coma (principal); G93.41 Metabolic encephalopathy; U07.1 COVID-19; N17.9 Acute kidney failure, unspecified; E87.1 Hypo-osmolality and hyponatremia; Z96.41 Presence of insulin pump (external) (internal); E86.0 Dehydration; K21.9 Gastro-esophageal reflux disease without esophagitis; F32.5 Major depressive disorder, single episode, in full remission; G89.29 Other chronic pain; E78.5 Hyperlipidemia, unspecified; I10 Essential (primary) hypertension; K76.82 Hepatic encephalopathy; F17.200 Nicotine dependence, unspecified, uncomplicated; Z20.822 Contact with and (suspected) exposure to COVID-19; Z79.899 Other long term (current) drug therapy; Z88.0 Allergy status to penicillin
CPT/HCPCS: 36415; 71045; 80048; 80053; 81001; 82009; 82140; 82800; 82948; 83605; 84132; 85025; 87040; 87811; 93005; 94761; 96361; 96365; 96372; 96375; 97161; 97165; 97530; 99285

== ENCOUNTER 2024-02-26 08:06 | Inpatient (IN) | payer MEDICARE, OTHER, SELFPAY ==
[2024-02-26] VITALS (15 sets, daily range): BP systolic 126–164; BP diastolic 67–108; PULSE 89–100; TEMP 36.3–37.6; O2SAT 91–98; BMI 24.8; BMI 26.2
--- OUTSIDE RECORDS SUMMARY | 2024-02-26 08:19 | XMS_ITS ---
Patient Summarization (C-CDA 2.1 CCD) Created on: February 26, 2024 RODRIGUE WALLACE : 1950 Sex: Female Author Organization Sample organization Care Team Providers Care Meat Team Lead Name Role Phone PHYSICIAN, DEFAULT Unavailable Unavailable PHYSICIAN, DEFAULT Unavailable Unavailable PHYSICIAN, DEFAULT Unavailable Unavailable PHYSICIAN, DEFAULT Unavailable Unavailable ELTAHAWY, EHAB A Unavailable Unavailable ZOILATAHAWY, EHAB A Unavailable Unavailable HOWARD SANTIAGO Unavailable Unavailable HOWARD SANTIAGO Unavailable Unavailable AHMED, BRYCE Unavailable Unavailable AHMED, BRYCE Unavailable Unavailable HOWARD SANTIAGO Unavailable Unavailable HOWARD WALDRON Unavailable Unavailable HOWARD SANTIAGO Unavailable Unavailable HOWARD SANTIAGO Unavailable Unavailable HOWARD SANTIAGO Unavailable Unavailable Howard Santiago II Primary Care Provider [phone] Howard Santiago II Primary Care Provider [phone] HOWARD SANTIAGO Admitting Unavailable JACK, DR JERONIMO Attending Unavailable JACK, DR JERONIMO Primary Care Unavailable JACK, DR JERONIMO Consulting Unavailable JACK, DR JERONIMO Admitting Unavailable JACK, DR JERONIMO Attending Unavailable JACK, DR JERONIMO Primary Care Unavailable JACK, DR JERONIMO Consulting Unavailable GARY, DR JERAMY Martinez Consulting Unavailable TRUE COELLO Consulting Unavailable Howard Santiago II Primary Care Provider [phone] ARACELI NATHAN Attending Unavailable SPRING HUNTER Referring Unavailable HOWARD SANTIAGO II Primary Care Unavailable ARACELI NATHAN Attending Unavailable ARACELI NATHAN Referring Unavailable HOWARD SANTIAGO II Primary Care Unavailable Howard Santiago MD Primary Care Provider [phone] Howard Santiago MD Unavailable [phone] Jack BRADFORD MD, Daniel B Primary Care Provider [phone] HOWARD SANTIAGO Attending Unavailable DELFIN ZHENG Attending Unavailable DELFIN ZHENG Attending Unavailable DELFIN ZHENG Attending Unavailable HOWARD SANTIAGO Referring Unavailable HOWARD SANTIAGO Attending Unavailable Allergies Allergy Classification Reported Allergen(s) Allergy Type Date of Onset Reaction(s) Facility (3 sources) Penicillins; Translations: [PENICILLINS] Drug allergy (disorder) 06-28-20 05 [facility] Repository (1 source) No Known Allergies; Translations: [No Known Allergies] Propensity to adverse reactions (disorder) [facility] Repository (1 source) Penicillin; Translations: [penicillin] Drug Allergy [facility] Repository (8 sources) Alendronate; Translations: [ALENDRONATE SODIUM] Drug Allergy 11-08-19 15 Other: See Comments [facility] Work Phone: (8 sources) Nitrofurantoin; Translations: [NITROFURANTOIN MACROCRYSTAL] Drug Allergy 05-23-20 16 Vomiting [facility] (1 source) Penicillins Propensity to adverse reactions 06-28-20 05 Itching [facility] (6 sources) Penicillins Propensity to adverse reactions 06-28-20 05 Itching [facility] (1 source) Acetaminophen / oxyCODONE Drug Allergy 01-29-20 23 Rash [facility] (1 source) Alendronate Drug Allergy 11-08-19 15 Other [facility] (1 source) hydroCHLOROthiazide Drug Allergy 01-29-20 23 [facility] (1 source) Nitrofurantoin Drug Allergy 01-29-20 23 [facility] (1 source) Penicillin G Drug Allergy 01-29-20 23 Hives [facility] (1 source) tamsulosin Drug Allergy 02-20-20 23 [facility] Encounters Encounter Date Encounter Type Care Provider Facility Start: 02-18-2024 End: 02-18-2024 ambulatory HOWARD SANTIAGO Not Available Start: 01-19-2024 End: 01-19-2024 Patient encounter procedure Amparo Martinez APRN.[facility] Work Phone: [facility] Comment on above: Screening for malign ant neoplasm of colon (Primary Dx); Iron deficiency anemia, unspecified iron deficiency anemia type; Hiatal hernia; Family history of colon cancer Start: 01-12-2024 End: 01-12-2024 ambulatory HOWARD SANTIAGO Not Available Start: 01-05-2024 End: 01-05-2024 ambulatory DELFIN ZHENG Not Available Start: 12-04-2023 End: 12-04-2023 ambulatory DELFIN ZHENG Not Available Start: 11-05-2023 Refill Jayashree Friday L PN Work Phone: [facility] Comment on above: Secondary osteoarthr itis, right shoulder Start: 10-13-2023 End: 10-13-2023 ambulatory DELFIN ZHENG Not Available Start: 10-09-2023 End: 10-09-2023 ambulatory HOWARD SANTIAGO Not Available Start: 12-11-2022 Telephone encounter Spring Hunter MD Work Phone: Endocrinology Comment on above: Forms ([employer]) Start: 12-05-2022 Telephone encounter Spring Hunter MD Work Phone: Endocrinology Comment on above: Patient Update (Marilee ra) Start: 11-06-2022 Telephone encounter Spring Hunter MD Work Phone: Endocrinology Comment on above: Forms ([employer]) Start: 09-20-2022 End: 09-21-[address] HOWARD SANTIAGO Facility:[facility] Start: 07-04-2022 Telephone encounter Spring Hunter MD Work Phone: Endocrinology Comment on above: Patient Update (Diab etes Management [employer] Supplies) Start: 04-26-2022 End: 04-26-2022 ambulatory ARACELI NATHAN Facility:[facility] Start: 04-26-2022 End: 04-26-2022 Patient encounter procedure Araceli Nathan FAMILY MEDIATOR.COMPUTER OPERATIONS MANAGER Work Phone: Endocrinology Comment on above: 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); Insulin pump status; Insulin pump titration; FDC (current) use of insulin (HCC) Start: 03-19-2022 End: 03-20-[address] HOWARD SANTIAGO Facility:[facility] Start: 01-01-2022 End: 01-01-2022 ambulatory ARACELI NATHAN Facility:[facility] Start: 01-01-2022 Telephone encounter Araceli conley FAMILY MEDIATOR.COMPUTER OPERATIONS MANAGER Work Phone: Endocrinology Comment on above: Dexcom Start: 08-20-2018 End: 08-21-2018 Patient encounter procedure HOWARD SANTIAGO Facility:[facility] Start: 06-25-2018 End: 06-26-2018 Patient encounter AYLEEN HICKEY Facility:[facility] Start: 06-15-2018 End: 06-17-2018 Evaluation and management of inpatient BRYCE MARIANGEL Facility:[facility] Start: 06-15-2018 End: 06-16-2018 Patient encounter DEFAULT PHYSICIAN Facility:[facility] Start: 06-10-2018 End: 06-11-2018 Patient encounter DEFAULT PHYSICIAN Facility:[facility] Medical Equipment Procedure Code Equipment Code Equipment Original Text Equipment Identifier Dates [id number] Start: 11-04-2013 Comment on above: One touch ultra blue test strips, insulin pump, iddm, 250.00, tests 5 x daily. Wire Kait .045in Stainless Steel 4in Fixation 2 [place] End - [id number] Start: 11-02-2015 [id number], [id number], [id number], [id number], [id number] Start: 04-10-2021 End: 01-19-2024 Comment on above: USE TO TEST BLOOD PRETTY GARS 5 TIMES DAILY Use as directed four times daily for insulin injections in case of pump failure Dx: E10.649 Use to test blood pretty gar 8 times daily One touch ultra blue test strips, insulin pump, iddm, 250.00, tests 5 x daily. [id number] Start: 11-04-2013 End: 01-19-2024 Immunizations Immunization Date Immunization Notes Care Provider Byron mix 07-23-2023 Influenza, High-dose Seasonal, Quadrivalent, Preservative Free Jayashree Friday QA CONSULTANT Work Phone: [facility] 08-13-2022 influenza, high dose seasonal, preservative-free Jayashree Friday QA CONSULTANT Work Phone: [facility] 06-13-2022 Moderna Bivalent Alvarado ster Vaccination Jayashree Friday QA CONSULTANT Work Phone: [facility] 06-12-2021 influenza, high-dose , quadrivalent vaccine (FLUZONE HIGH DOSE QUADRIVALENT) Araceli Nathan FAMILY MEDIATOR.COMPUTER OPERATIONS MANAGER Work Phone: [facility] 07-30-2020 zoster vaccine recombinant Jayashree Friday QA CONSULTANT Work Phone: [facility] 07-18-2020 influenza, high-dose , quadrivalent vaccine (FLUZONE HIGH DOSE QUADRIVALENT) Araceli Nathan APRN.COMPUTER OPERATIONS MANAGER Work Phone: [facility] 07-20-2019 Influenza, injectabl e, Madin Aleja Canine Kidney, quadrivalent with preservative Jayashree Friday QA CONSULTANT Work Phone: [facility] 07-08-2018 Influenza, High-dose Seasonal, Quadrivalent, Preservative Free Jayashree Friday QA CONSULTANT Work Phone: [facility] 07-04-2017 pneumococcal polysaccharide vaccine, 23 valent Jayashree Friday QA CONSULTANT Work Phone: [facility] 06-16-2017 Influenza, High-dose Seasonal, Quadrivalent, Preservative Free Jayashree Friday QA CONSULTANT Work Phone: [facility] 07-30-2016 influenza, injectabl e, quadrivalent, preservative free Jayashree Friday QA CONSULTANT Work Phone: [facility] 07-01-2016 influenza, high dose seasonal, preservative-free Araceli Nathan FAMILY MEDIATOR.COMPUTER OPERATIONS MANAGER Work Phone: [facility] 03-11-2016 pneumococcal conjuga te vaccine, 13 valent Jayashree Friday QA CONSULTANT Work Phone: [facility] 01-22-2016 pneumococcal conjuga te vaccine, 13 valent Jayashree Friday QA CONSULTANT Work Phone: [facility] 07-05-2014 seasonal influenza, intradermal, preservative free Jayashree Friday QA CONSULTANT Work Phone: [facility] 07-23-2013 pneumococcal polysaccharide vaccine, 23 valent Jayashree Friday QA CONSULTANT Work Phone: [facility] 07-07-2013 zoster vaccine, live Jayashree M QA CONSULTANT Work Phone: [facility] 09-04-2012 zoster vaccine, live Araceli Nathan FAMILY MEDIATOR.COMPUTER OPERATIONS MANAGER Work Phone: [facility] 08-03-2012 pneumococcal polysaccharide vaccine, 23 valent Araceli Jac FAMILY MEDIATOR.COMPUTER OPERATIONS MANAGER Work Phone: [facility] 06-28-2005 pneumococcal polysaccharide vaccine, 23 valent Araceli Jac FAMILY MEDIATOR.COMPUTER OPERATIONS MANAGER Work Phone: [facility] Medications Current Medications Medication Drug Class(es) Dates Sig (Normalized) Sig (Original) acetaminophen 325 mg / HYDROcodone bitartrate 10 mg oral tablet (9 sources) Opioid Agonist Start: 10-06-2023 End: 12-05-2023 take 1 tablet by mouth every six hours for pain HYDROcodone-aceta minophen (Cypress) 10-325 MG tablet Indications: Pain , M15.0 Take 1 tablet by mouth every 6 (six) hours if needed for moderate pain 120 tablet 0 11/05/2023 12/05/2023 Active Start: 12-05-2014 HYDROcodone-ac etaminophen (NORCO) 5-325 mg per tablet Take one-two tablets every six hours as needed for pain 0 12/05/2014 Active Comment on above: Take one-two tablets every six hours as needed for pain [id number] 200 actuat albuterol 0.09 mg/actuat metered dose inhaler (1 source) beta2-Adrenergic Agonist Start: 09-19-20 23 take 2 puff(s) by inhalation every four hours as needed Ventolin HFA 108 (90 Base) MCG/ACT inhaler INHALE 2 PUFFS EVERY 4 HOURS NEEDED FOR SHORTNESS OF BREATH OR FOR WHEEZE 0 09/19/2023 Active amLODIPine 10 mg oral tablet (8 sources) Dihydropyridine Calcium Channel Nemesio Start: 10-29-19 22 amLODIPine (NORVASC) 10 mg tablet aspirin 81 mg delayed release oral tablet (8 sources) Platelet Aggregation Inhibitor, Nonsteroidal Anti-inflammatory Drug Start: 02-13-20 11 take 1 tablet by mouth in the morning aspirin 81 MG EC tablet Take 81 mg by mouth in the morning. 0 02/12/2011 Active Start: 02-05-2007 take 1 tablet by bernabe th once daily Aspirin 81 mg ORAL Tab Take one(1) tablet daily. 0 0 02/05/2007 Active Comment on above: Take one(1) tablet d aily. calcium citrate 1500 mg / cholecalciferol 200 unt oral tablet (7 sources) Vitamin D Start: 1 take 1 tablet by mouth once daily calcium citrate-vitamin D3 (CITRACAL + D) 315-200 mg-unit ORAL Tab Take by mouth once daily. 1200mg Calcium + Vit D 1000IU (total D is 3000IU daily) 0 07/29/2011 Active Comment on above: Take by mouth once d aily. 1200mg Calcium + Vit D 1000IU (total D is 3000IU daily) carisoprodol 350 mg oral tablet (8 sources) Muscle Relaxant Start: 3 carisoprodol (Soma) 350 MG tablet Indications: Spinal stenosis in cervical region TAKE 1 TABLET FOUR TIMES DAILY NEEDED 360 tablet 2 08/25/2023 Active carisoprodol (SO MA ORAL) Take by mouth. 0 Active Comment on above: Take by mouth. celecoxib 200 mg oral capsule (8 sources) Nonsteroidal Anti-inflammatory Drug Start: 012 celecoxib (CeleBREX) 200 MG capsule Indications: Depression, unspecified depression type (CMS/HCC) TAKE 1 CAPSULE EVERY DAY WITH FOOD 90 capsule 3 10/27/2023 Active Comment on above: Take 1 capsule by mo uth once daily. cholecalciferol 0.025 mg oral tablet (8 sources) Vitamin D Start: 016 take 2 tablets by mouth once daily cholecalciferol (VITAMIN D3) 1,000 unit tab Take 2 tablets by mouth once daily. 0 11/21/2015 Active Start: 02-10-2012 take 1 capsule by mo uth in the morning cholecalciferol (Vitamin D-3) 50 MCG (1999 UT) capsule Take 2,000 Units by mouth in the morning. 0 02/10/2012 Active Comment on above: Take 2 tablets by mo uth once daily. Continuous Blood Gluc Sensor (Dexcom G6 Sensor) misc (1 source) Continuous Blood Gluc Sensor (Dexcom G6 Sensor) misc Inject 1 each under the skin Every 10 (ten) days 0 Active esomeprazole 40 mg delayed release oral capsule (8 sources) Proton Pump Inhibitor Start: 015 esomeprazole (NexIUM) [address] capsule Indications: Gastroesophageal reflux disease without esophagitis TAKE 1 CAPSULE EVERY DAY 100 capsule 3 08/25/2023 Active Comment on above: Take 1 capsule by mo [facility] once daily. ferrous sulfate 325 mg oral tablet (1 source) Start: 024 End: 025 ferrous sulfate 325 mg (65 mg iron) tablet Take 1 tablet by mouth. 0 01/01/2024 12/31/2024 Active fluticasone propionate 0.05 mg/actuat metered dose nasal spray (1 source) Corticosteroid Start: 011 take 2 spray(s) nasal route in the morning fluticasone (Flonase) 50 MCG/ACT nasal spray Administer 2 sprays into each nostril in the morning. 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) Per pump (max daily 40 units) 40 mL 3 10/13/2023 Active Start: 01-01-2022 NOVOLOG U-100 INSULIN ASPART 100 unit/mL Use via insulin pump, 30 units daily 6 Vial 3 01/01/2022 Active Comment on above: Use via insulin pump , 30 units daily Insulin Infusion Pump (MiniMed 670G Insulin Pump) device (1 source) Start: 10-28-2023 Insulin Infusion Pump (MiniMed 670G Insulin Pump) device Indications: 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) Basal: 12A 0.15, 8A 0.35, 4P 0.25, ICR: 12A 7, 10A 15, ISF: 70, Target: 90-160 1 each 0 10/28/2023 Active lisinopril 10 mg oral tablet (8 sources) Angiotensin Converting Enzyme Inhibitor Start: 05-23-2016 take 1 tablet by mouth once daily lisinopril (PRINIVIL) 10 mg tablet Take 1 tablet by mouth once daily. 100 tablet 3 05/23/2016 Active take 1 tablet by mouth in the mo rning lisinopril 20 MG tablet Take 20 mg by mouth in the morning. 0 Active Comment on above: Take 1 tablet by bernabe once daily. mometasone furoate 0.05 mg/actuat metered dose nasal spray (7 sources) Corticosteroid Start: 07-26-20 14 mometasone (NASONEX) 50 mcg/actuation nasal spray Use 2 Sprays in the nose once daily. 0 07/26/2014 Active Comment on above: Use 2 Sprays in the nose once daily. multivitamin with minerals (ONE DAILY COMPLETE) ORAL Tab (7 sources) Start: 07-21-20 07 take 1 tablet by mouth once daily, then take 1 tablet by mouth once daily multivitamin with minerals (ONE DAILY COMPLETE) ORAL Tab Take one(1) tablet daily. 0 0 07/21/2007 Active Comment on above: Take one(1) tablet d aily. rosuvastatin calcium 5 mg oral tablet (2 sources) HMG-CoA Reductase Inhibitor Start: 12-27-19 24 rosuvastatin (CRESTOR) 5 mg tablet Start: 10-27-2023 rosuvastatin ( Crestor) 5 MG tablet Indications: Mixed hyperlipidemia (CMS/HCC) TAKE 1 TABLET EVERY DAY 90 tablet 3 10/27/2023 Active sertraline 100 mg oral tablet (8 sources) Serotonin Reuptake Inhibitor Start: 08-26-2023 sertraline (Zoloft) 100 MG tablet Indications: Depression, unspecified depression type (CMS/HCC) TAKE 1 TABLET ONE TIME DAILY 90 tablet 3 08/26/2023 Active Start: 07-26-2014 take 1 tablet by bernabe th once daily sertraline (ZOLOFT) 50 mg tablet Take 1 tablet by mouth once daily. 0 07/26/2014 Active Comment on above: Take 1 tablet by bernabe th once daily. ubidecarenone 30 mg oral capsule (2 sources) coenzyme Q10 30 mg capsule Take 30 mg by mouth. 0 Active take 1 capsule by mouth in the m orning co-enzyme Q-10 30 MG capsule Take 30 mg by mouth in the morning. 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) , Insulin pump status USE TO TEST BLOOD SUGARS 5 TIMES DAILY 1 Each 0 01/01/2022 01/19/2024 Discontinued Start: 01-01-2022 Blood-Glucose Meter,Continuous (DEXCOM G6 SWIMMING POOL SERVICER) misc Indications: 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) , Insulin pump status USE TO TEST BLOOD SUGARS 5 TIMES DAILY 1 Each 0 01/01/2022 Active Start: 01-01-2022 End: 01-01-2022 Blood-Glucose Meter,Continuo us (DEXCOM G6 SWIMMING POOL SERVICER) misc Indications: 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) , Insulin pump status USE TO TEST BLOOD SUGARS 5 TIMES DAILY 1 Each 0 01/01/2022 01/01/2022 Discontinued Start: 11-08-2021 End: 01-01-2022 Blood-Glucose Meter,Continuo us (DEXCOM G6 SWIMMING POOL SERVICER) [facility] Indications: 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) , Insulin pump status USE TO TEST BLOOD SUGARS 5 TIMES DAILY 1 Each 0 11/08/2021 01/01/2022 Discontinued Comment on above: USE TO TEST BLOOD PRETTY GARS 5 TIMES DAILY Blood-Glucose Sensor (DEXCOM G6 SENSOR) shayy (9 sources) Start: 01-01-2022 End: 01-19-2024 Blood-Glucose Sensor (DEXCOM G6 SENSOR) shayy Indications: 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) , Insulin pump status USE TO TEST BLOOD SUGARS 5 TIMES DAILY 3 Each 11 01/01/2022 01/19/2024 Discontinued Start: 01-01-2022 Blood-Glucose Sensor (DEXCOM G6 SENSOR) shayy Indications: 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) , Insulin pump status USE TO TEST BLOOD SUGARS 5 TIMES DAILY 3 Each 11 01/01/2022 Active Start: 01-01-2022 End: 01-01-2022 Blood-Glucose Sensor (DEXCOM G6 SENSOR) shayy Indications: 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) , Insulin pump status USE TO TEST BLOOD SUGARS 5 TIMES DAILY 3 Each 11 01/01/2022 01/01/2022 Discontinued Start: 10-17-2021 End: 01-01-2022 Blood-Glucose Sensor (DEXCOM G6 SENSOR) shayy Indications: 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) , Insulin pump status USE TO TEST BLOOD SUGARS 5 TIMES DAILY 3 Each 11 10/17/2021 01/01/2022 Discontinued Comment on above: USE TO TEST BLOOD PRETTY GARS 5 TIMES DAILY Blood-Glucose Transmitter (DEXCOM G6 TRANSMITTER) shayy (9 sources) Start: 01-01-2022 End: 01-19-2024 Blood-Glucose Transmitter (DEXCOM G6 TRANSMITTER) shayy Indications: 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) , Insulin pump status USE TO TEST BLOOD SUGARS 5 TIMES DAILY 1 Each 3 01/01/2022 01/19/2024 Discontinued Start: 01-01-2022 Blood-Glucose Transmitter (DEXCOM G6 TRANSMITTER) shayy Indications: 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) , Insulin pump status USE TO TEST BLOOD SUGARS 5 TIMES DAILY 1 Each 3 01/01/2022 Active Start: 01-01-2022 End: 01-01-2022 Blood-Glucose Transmitter (D EXCOM G6 TRANSMITTER) shayy Indications: 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) , Insulin pump status USE TO TEST BLOOD SUGARS 5 TIMES DAILY 1 Each 3 01/01/2022 01/01/2022 Discontinued Start: 10-17-2021 End: 01-01-2022 Blood-Glucose Transmitter (D EXCOM G6 TRANSMITTER) shayy Indications: 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) , Insulin pump status USE TO TEST BLOOD SUGARS 5 TIMES DAILY 1 Each 3 10/17/2021 01/01/2022 Discontinued Comment on above: USE TO TEST BLOOD PRETTY GARS 5 TIMES DAILY chondroitin sulfates 200 mg / glucosamine hydrochloride 250 mg oral tablet (7 sources) Start: 12-06-19 15 End: 01-19-20 24 Glucosamine-Chondro itin (OSTEO BI-FLEX) 250-200 mg tab Takes two tablets daily 0 12/05/2014 01/19/2024 Discontinued Comment on above: Takes two tablets da pamela 1 ml denosumab 60 mg/ml prefilled syringe (7 sources) RANK Ligand Inhibitor Start: 11-10-19 18 End: 01-19-20 24 PROLIA 60 mg/mL syrg ezetimibe 10 mg oral tablet (7 sources) Dietary Cholesterol Absorption Inhibitor Start: 09-05-20 End: 01-19-20 ezetimibe (ZETIA) 10 mg tablet Take 1 tab daily 100 tablet 3 09/05/2017 01/19/2024 Discontinued Comment on above: Take 1 tab daily glucagon (rdna) 1 mg injection (7 sources) Antihypoglycemic Agent Start: 03-06-20 End: 01-19-20 glucagon, human recombinant, (GLUCAGON EMERGENCY KIT, HUMAN,) 1 mg injection Inject (1)one mg for insulin shock. 1 Each 6 03/06/2017 01/19/2024 Discontinued Comment on above: Inject (1)one mg for insulin shock. glucose 0.4 mg/mg oral gel (7 sources) Start: 11-04-19 End: 01-19-20 dextrose (GLUCOSE GEL) 40 % gel Take 10 g by mouth as needed. 1 Each 2 11/04/2013 01/19/2024 Discontinued Comment on above: Take 10 g by mouth a s needed. meloxicam 15 mg oral tablet (7 sources) Nonsteroidal Anti-inflammatory Drug End: 01-19-20 take 1 tablet by mouth once daily meloxicam (MOBIC) 15 mg tablet Take 15 mg by mouth once daily. 0 01/19/2024 Discontinued Comment on above: Take 15 mg by mouth once daily. tiZANidine 4 mg oral tablet (7 sources) Central alpha-2 Adrenergic Agonist Start: 07-06-20 End: 01-19-20 take 1 tablet by mouth once daily tiZANidine (ZANAFLEX) 4 mg tablet Indications: DDD (degenerative disc disease), thoracic , DDD (degenerative disc disease), cervical , Muscle spasm Take 1 tablet by mouth once daily. 90 tablet 1 07/06/2015 01/19/2024 Discontinued Comment on above: Take 1 tablet by bernabe th once daily. Payers Date Payer Category Payer Private Health Insurance [facility] [id number] 2015-Present [phone] [address] [place] [address] Indemnity [id number] 2015 Private Health Insurance [id number] 2004 Medicare [id number] 2004 Medicare [id number] 1959 Medicare [id number] 1959 Unknown [id number] 1951 Unknown [id number] 2.16.840.1.948132.3.579. 2.647 1951 Unknown [id number] 2.16.840.1.196339.3.579. 2.647 1950 Unknown [id number] 2.16.840.1.690870.3.579. 2.647 1951 Unknown [id number] 2.16.840.1.343729.3.579. 2.647 1951 Unknown [id number] 2.16.840.1.286994.3.579. 2.727 1951 Unknown [id number] 2.16.840.1.402102.3.579. 2.593 1951 Unknown [id number] 2.16.840.1.173537.3.579. 2.593 1951 Unknown [id number] 2.16.840.1.179855.3.579. 2.1259 1951 Unknown [id number] 2.16.840.1.021104.3.579. 2.1259 1951 Unknown [id number] 2.16.840.1.608295.3.579. 2.1259 1951 Unknown [id number] 2.16.840.1.462353.3.579. 2.1259 1951 Unknown [id number] 2.16.840.1.610847.3.579. 2.1259 1951 Unknown [id number] Medicare [id number] Unknown Plan of Treatment Date Care Activity Detail Author Start: 06-30-2027 Screening for malignant neoplasm of colon [facility] Start: 12-30-2024 Hepatitis B surface antibody level LDL Cholesterol [facility] Start: 10-24-2024 Glaucoma screening Diabetes: Retinopathy Screening [facility] Start: 10-09-2024 Urine screening for protein Diabetes: Urine Protein Screening [facility] Start: 07-16-2024 End: 07-16-2024 Patient encounter procedure 07/16/2024 10:20 AM EDT Office Visit [facility] [address] [place] [id number] Nakia Steele MD [address] [place] [address] [facility] Start: 07-06-2024 Hemoglobin A1c measurement HbA1C [facility] Start: 02-27-2024 End: 02-27-2024 Patient encounter procedure 02/27/2024 8:00 AM EDT Appointment [facility] [address] [place] [id number] Sandy Cristobal I, MD [address] [place] [address] [facility] Start: 01-19-2024 End: 04-19-2024 CELIAC SCREEN WITH REFLEX CELIAC SCREEN WITH REFLEX Lab Routine Iron deficiency anemia, unspecified iron deficiency anemia type Expected: 01/19/2024, Expires: 04/19/2024 [facility] Work Phone: Comment on above: Expected: 01/19/2024, Expires: Start: 01-12-2024 Hemoglobin A1c measurement Diabetes: Hemoglobin A1C [facility] Start: 01-12-2024 End: 01-12-2024 Patient encounter procedure [facility] Start: 09-22-2023 Advance Directive Discussion Advance Directive Discussion [facility] Start: 09-22-2023 Behavioral Health Screening Behavioral Health Screening [facility] Start: 05-23-2023 Covid-19 Vaccine () Covid-19 Vaccine () [facility] Start: 10-27-2022 Hemoglobin A1c/Hemoglobin.total in Blood HBA1C [facility] Start: 09-22-2022 ADVANCE DIRECTIVE DISCUSSION ADVANCE DIRECTIVE DISCUSSION [facility] Start: 09-22-2022 DEPRESSION ASSESSMENT DEPRESSION ASSESSMENT [facility] Start: 07-03-2022 Hemoglobin A1c/Hemoglobin.total in Blood HBA1C [facility] Start: 06-30-2022 Colonoscopy COLONOSCOPY [facility] Start: 06-30-2022 COLORECTAL CANCER SCREENING COLORECTAL CANCER SCREENING [facility] Start: 06-30-2022 Screening for malignant neoplasm of colon [facility] Start: 06-26-2022 End: 08-26-2022 ALBUMIN/CREAT RATIO RND UR ALBUMIN/CREAT RATIO RND UR Lab Routine 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) Expected: 06/26/2022, Expires: 08/26/2022 [facility] Work Phone: Comment on above: Expected: 06/26/2022, Expires: 2 Start: 06-26-2022 End: 08-26-2022 Comprehensive metabolic 2000 panel - Serum or Plasma COMP METABOLIC PANEL Lab Routine 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) Expected: 06/26/2022, Expires: 08/26/2022 [facility] Work Phone: Comment on above: Expected: 06/26/2022, Expires: 2 Start: 06-26-2022 End: 08-26-2022 Lipid 1996 panel - Serum or Plasma LIPID PANEL BASIC Lab Routine 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) Expected: 06/26/2022, Expires: 08/26/2022 [facility] Work Phone: Comment on above: Expected: 06/26/2022, Expires: 2 Start: 06-07-2022 Hepatitis B screening URINE ALBUMIN:CREATININE RATIO [facility] Start: 06-07-2022 Hepatitis B surface antibody level LDL CHOLESTEROL [facility] Start: 05-23-2022 Influenza vaccination INFLUENZA (#1) [facility] Start: 04-01-2022 Hemoglobin A1c/Hemoglobin.total in Blood HBA1C [facility] Start: 12-27-2021 COVID-19 VACCINE (4 - Booster for Moderna series) COVID-19 VACCINE (4 - Booster for Moderna series) [facility] Start: 10-23-2021 COVID-19 VACCINE (4 - Booster for Moderna series) COVID-19 VACCINE (4 - Booster for Moderna series) [facility] Start: 09-22-2021 ADVANCE DIRECTIVE DISCUSSION ADVANCE DIRECTIVE DISCUSSION [facility] Start: 09-22-2021 DEPRESSION ASSESSMENT DEPRESSION ASSESSMENT [facility] Start: 09-24-2020 Shingrix Vaccine (3 of 3) Shingrix Vaccine (3 of 3) [facility] Start: 08-03-2017 PNEUMOVAX AGE 65 AND OVER WITH 5YR LOOKBACK (#1) PNEUMOVAX AGE 65 AND OVER WITH 5YR LOOKBACK (#1) [facility] Start: 05-23-2017 3 comp foot exam completed DIABETIC FOOT EXAM [facility] Start: 05-23-2017 Diabetic foot examination Diabetic Foot Exam [facility] Start: 05-23-2017 Mammography MAMMOGRAM [facility] Start: 05-23-2017 Screening for malignant neoplasm of breast Mammogram Screening [facility] Start: 02-20-2017 Glaucoma screening Dilated Retinal Exam [facility] Start: 02-20-2017 Hepatitis C antibody, confirmatory test DILATED RETINAL EXAM [facility] Start: 08-03-2013 PNEUMOCOCCAL: 65+ (2 - PCV) PNEUMOCOCCAL: 65+ (2 - PCV) [facility] Start: 10-30-2012 SHINGRIX VACCINE (2 of 3) SHINGRIX VACCINE (2 of 3) [facility] Start: 2011 RSV Vaccine (1 - 1-dose 60+ series) RSV Vaccine (1 - 1-dose 60+ series) [facility] Start: 02-02-1996 COLOGUARD (FIT-DNA) COLOGUARD (FIT-DNA) [facility] Start: 02-02-[address] COLONOGRAPHY [facility] Start: 02-02-1996 FECAL OCCULT BLOOD FECAL OCCULT BLOOD [facility] Start: 02-02-1996 Screening for malignant neoplasm of colon [facility] Start: 02-02-1996 SIGMOIDOSCOPY SIGMOIDOSCOPY [facility] Start: 1991 Screening for malignant neoplasm of breast Mammogram [facility] Start: 1970 Urine microalbumin profile [facility] Start: 1969 ANNUAL PCP TEAM CHRONIC DISEASE VISIT ANNUAL PCP TEAM CHRONIC DISEASE VISIT [facility] Start: 1963 Adult depression screening assessment DEPRESSION SCREENING [facility] Start: 1950 Screening for malignant neoplasm of colon [facility] End: 01-18-2025 EGD DIAGNOSTIC EGD DIAGNOSTIC Endoscopy Routine Iron deficiency anemia, unspecified iron deficiency anemia type Hiatal hernia 1 Occurrences starting 01/19/2024 until 01/18/2025 [facility] Comment on above: 1 Occurrences starting 01/19/2024 until 01/18/2025 Hemoglobin A1c/Hemoglobin.total in Blood HEMOGLOBIN A1C (POC) Lab Routine 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) Ordered: 04/26/2022 [facility] Work Phone: Comment on above: Ordered: 04/26/2022 End: 01-18-2025 Screening colonoscopy COLONOSCOPY SCREENING Endoscopy Routine Iron deficiency anemia, unspecified iron deficiency anemia type Screening for malignant neoplasm of colon 1 Occurrences starting 01/19/2024 until 01/18/2025 [facility] Comment on above: 1 Occurrences starting 01/19/2024 until [facility] Active Problems Problem Classification Problem Date Documented Da te Episodic/Chronic Abdominal hernia (8 sources) Hiatal hernia; Translations: [Diaphragmatic hernia without obstruction or gangrene] Onset: 04-15-2019 04-15-2019 Episodic Allergic reactions (1 source) Allergy status to penicillin; Translations: [ALLERGY STATUS TO PENICILLIN] Onset: 06-15-2018 Episodic Cardiac dysrhythmias (1 source) Palpitations; Translations: [PALPITATIONS] Onset: 06-25-2018 Episodic Chronic obstructive pulmonary disease and bronchiectasis (1 source) Chronic obstructive lung disease; Translations: [Chronic obstructive pulmonary disease, unspecified] Onset: 01-28-2023 01-28-2023 Chronic Coronary atherosclerosis and other heart disease (1 source) Angina pectoris, unspecified; Translations: [ANGINA PECTORIS, UNSPECIFIED] Onset: 06-15-2018 Chronic Deficiency and other anemia (1 source) Anemia, unspecified; Translations: [ANEMIA, UNSPECIFIED] Onset: 06-15-2018 Episodic Deficiency and other anemia (1 source) Iron deficiency anemia; Translations: [Iron deficiency anemia, unspecified] 01-19-2024 Episodic Diabetes mellitus with complications (12 sources) Type 1 diabetes mellitus; Translations: [Type 1 diabetes mellitus with hypoglycemia without coma] Onset: 07-22-2005 Resolved: 12-18-2009 Chronic Diabetes mellitus with complications (1 source) Type 1 diabetes mellitus with diabetic neuropathy, unspecified; Translations: [TYPE 1 DIABETES MELLITUS WITH DIABETIC NEUROPATHY, UNSP] Onset: 06-15-2018 Diabetes mellitus without complication (11 sources) Type 2 diabetes mellitus without complications; Translations: [Insulin dependent diabetes mellitus type 1B] Onset: 07-22-2005 Resolved: 12-18-2009 10-16-2015 Chronic Disorders of lipid metabolism (10 sources) Hyperlipidemia, unspecified; Translations: [Pure hypercholesterolemi a] Onset: 02-18-2006 02-18-2006 Chronic Esophageal disorders (11 sources) Gastro-esophageal reflux disease without esophagitis; Translations: [Alkaline reflux disease] Onset: 09-26-2015 10-16-2015 Chronic Essential hypertension (2 sources) Essential (primary) hypertension; Translations: [Essential hypertension] Onset: 06-25-2018 01-28-2023 Chronic Fluid and electrolyte disorders (1 source) Hypo-osmolality and hyponatremia; Translations: [HYPO-OSMOLALITY AND HYPONATREMIA] Onset: 06-15-2018 Episodic Hypertension with complications and secondary hypertension (3 sources) Hypertensive urgency; Translations: [HYPERTENSIVE URGENCY] Onset: 06-15-2018 Mood disorders (2 sources) Depressive disorder; Translations: [Depression] Onset: 04-30-2017 01-28-2023 Chronic Mood disorders (1 source) Major depressive disorder, single episode, unspecified; Translations: [MAJOR DEPRESSIVE DISORDER, SINGLE EPISODE, UNSPECIFIED] Onset: 06-15-2018 Nonspecific chest pain (4 sources) Chest pain, unspecified; Translations: [CHEST PAIN, UNSPECIFIED] Onset: 06-25-2018 Episodic Nutritional deficiencies (8 sources) Vitamin D deficiency; Translations: [Vitamin D deficiency, unspecified] Onset: 06-13-2008 06-13-2008 Chronic Osteoarthritis (20 sources) Arthritis; Translations: [Unspecified osteoarthritis, unspecified site] Onset: 11-02-2012 11-02-2012 Chronic Osteoporosis (2 sources) Age-related osteoporosis without current pathological fracture; Translations: [Osteoporosis] Onset: 06-15-2018 01-28-2023 Chronic Other aftercare (1 source) FDC (current) use of aspirin; Translations: [GROUP HOME (CURRENT) USE OF ASPIRIN] Onset: 06-25-2018 Episodic Other aftercare (1 source) FDC (current) use of insulin; Translations: [GROUP HOME (CURRENT) USE OF INSULIN] Onset: 06-25-2018 Episodic Other lower respiratory disease (1 source) Shortness of breath; Translations: [SHORTNESS OF BREATH] Onset: 06-25-2018 Episodic Other nervous system disorders (1 source) Other chronic pain; Translations: [OTHER CHRONIC PAIN] Onset: 06-15-2018 Chronic Other nervous system disorders (8 sources) Complex regional pain syndrome type I of right upper limb; Translations: [Complex regional pain syndrome I of right upper limb] Onset: 01-26-2016 01-26-2016 Chronic Other nutritional; endocrine; and metabolic disorders (8 sources) Hypercalcemia; Translations: [Hypercalcemia] Onset: 04-20-2010 04-20-2010 Chronic Other screening for suspected conditions (not mental disorders or infectious disease) (1 source) Patient encounter status; Translations: [Encounter for screening for malignant neoplasm of colon] 01-19-2024 Episodic Other upper respiratory disease (1 source) Allergic rhinitis; Translations: [Allergic rhinitis, unspecified] Onset: 01-28-2023 01-28-2023 Chronic Residual codes; unclassified (1 source) History of bilateral breast implants; Translations: [Breast implant status] Onset: 01-20-2019 04-29-2023 Chronic Residual codes; unclassified (9 sources) Family history of cancer of colon; Translations: [Family history of malignant neoplasm of digestive organs] Onset: 04-18-2017 04-18-2017 Episodic Screening or history of mental health and substance abuse (1 source) Personal history of nicotine dependence; Translations: [PERSONAL HISTORY OF NICOTINE DEPENDENCE] Onset: 06-15-2018 Episodic Thyroid disorders (8 sources) Goiter; Translations: [Nontoxic goiter, unspecified] Onset: 12-18-2009 12-18-2009 Chronic Transient cerebral ischemia (5 sources) Transient cerebral ischemic attack, unspecified; Translations: [Transient cerebral ischemia] Onset: 03-19-2022 Chronic Unclassified (1 source) Family history of ischemic heart disease and other diseases of the circulatory system; Translations: [FAMILY HX OF ISCHEM HEART DIS AND OTH DIS OF THE CIRC SYS] Onset: 06-15-2018 Episodic Unclassified (2 sources) Unknown / UNK(Unknown) Onset: 06-25-2018 Past or Other Problems Problem Classification Problem Date Documented Date Episodic/Chronic Chronic obstructive pulmonary disease and bronchiectasis (7 sources) Bronchitis; Translations: [Bronchitis, not specified as acute or chronic] Onset: 6 02-21-2016 Episodic Complication of device; implant or graft (8 sources) Mechanical complication of breast prosthesis; Translations: [Other mechanical complication of breast prosthesis and implant, initial encounter] Onset: 6 05-16-2006 Episodic Conditions associated with dizziness or vertigo (1 source) Dizziness and giddiness; Translations: [DIZZINESS AND GIDDINESS] Onset: 2 Episodic Diabetes mellitus without complication (11 sources) Presence of insulin pump (external) (internal); Translations: [Insulin pump present] Onset: 6 Episodic Disorders of teeth and jaw (8 sources) Temporomandibular joint disorder; Translations: [Temporomandibular joint disorders, unspecified] Onset: 0 02-02-2010 Episodic Nonmalignant breast conditions (1 source) Hypertrophy of breast; Translations: [Hypertrophy of breast] Onset: 3 01-28-2023 Episodic Other aftercare (2 sources) Long-term current use of insulin; Translations: [FDC (current) use of insulin] Onset: 0 Resolved: 3 Episodic Other and unspecified benign neoplasm (8 sources) History of polyp of colon; Translations: [Personal history of colonic polyps] Onset: 7 04-18-2017 Episodic Other bone disease and musculoskeletal deformities (8 sources) Complex regional pain syndrome of upper limb; Translations: [Algoneurodystrophy, unspecified hand] Onset: 6 03-01-2016 Episodic Other connective tissue disease (1 source) Muscle pain; Translations: [Myalgia, unspecified site] Onset: 3 01-28-2023 Episodic Other non-epithelial cancer of skin (2 sources) Basal cell carcinoma of face; Translations: [Basal cell carcinoma of skin of unspecified parts of face] Onset: 0 04-29-2023 Episodic Other skin disorders (8 sources) Mass of skin; Translations: [Localized swelling, mass and lump, unspecified] Onset: 6 10-02-2015 Episodic Otitis media and related conditions (1 source) Dysfunction of eustachian tube; Translations: [Unspecified Eustachian tube disorder, unspecified ear] Onset: 3 01-28-2023 Episodic Pathological fracture (1 source) Pathological fracture of vertebra; Translations: [Pathological fracture, other site, initial encounter for fracture] Onset: 1 04-29-2023 Episodic Spondylosis; intervertebral disc disorders; other back problems (9 sources) Low back pain; Translations: [Spinal stenosis in cervical region] Onset: 6 01-26-2016 Episodic Unclassified (1 source) Type 1 diabetes mellitus without complication; Translations: [Diabetes mellitus type 1, uncontrolled, without complications] Onset: 0 Resolved: 6 08-23-2016 Procedures Date Procedure Procedure Detail Performing Clinician Start: 06-30-2017 Colonoscopy Araceli conley APRN.COMPUTER OPERATIONS MANAGER Work Phone: Start: 05-23-2016 Mammography Araceli conley APRN.CNP Work Phone: Results Test Name Value Interpretation Reference Range [facility] -------- RODRIGUE WALLACE ([id number]) 1950 F Date Time Provider Department 12/11/22 [facility] During your visit today, we recorded the following information about you: Mj Krueger MA 12/11/2022 4:30 PM Signed Received a fax from [employer] requesting C Peptide and Fasting glucose under 225 mg/dl done on the same day and A1C. Printed labs from 01/05/2003 and and printed A1C's from 01/27/13 AND 04/26/22, faxed to [phone]. Confirmation received. Allergies As of Date: 12/11/2022 Noted Allergy Reaction FOSAMAX (ALENDRONATE SODIUM) 11/08/2014 14 - Other: See Comments Comments: Leg cramps, severe MACRODANTIN (NITROFURANTOIN MACRO*05/23/2016 11 - Vomiting PENICILLINS 06/28/2005 9 - Itching Date Reviewed: 04/26/2022 Reviewed by: Araceli Nathan APRN.COMPUTER OPERATIONS MANAGER - Fully Assessed Reason for Visit: Forms [173] Cmt: [employer] Prescriptions as of 12/11/2022 - amLODIPine (NORVASC) 10 mg tablet - gabapentin (NEURONTIN) 100 mg capsule - NOVOLOG U-100 INSULIN ASPART 100 unit/mL Use via insulin pump, 30 units daily - Blood-Glucose Meter,Continuous (DEXCOM G6 SWIMMING POOL SERVICER) misc USE TO TEST BLOOD SUGARS 5 TIMES DAILY - Blood-Glucose Sensor (DEXCOM G6 SENSOR) shayy USE TO TEST BLOOD SUGARS 5 TIMES DAILY - Blood-Glucose Transmitter (DEXCOM G6 TRANSMITTER) shayy USE TO TEST BLOOD SUGARS 5 TIMES DAILY - blood sugar diagnostic (CONTOUR NEXT TEST STRIPS) test strip USE TO TEST BLOOD SUGARS 5 TIMES DAILY - carisoprodol (SOMA ORAL) Take by mouth. - Lancets (ONETOUCH ULTRASOFT LANCETS) lancets Use to test blood sugar 8 times daily - Insulin Syringe-Needle U-100 0.5 mL 30 gauge x 16 syrg Use as directed four times daily for insulin injections in case of pump failure Dx: E10.649 - Blood-Glucose Meter (CONTOUR NEXT METER) - meloxicam (MOBIC) 15 mg tablet Take 15 mg by mouth once daily. - PROLIA 60 mg/mL syrg - ezetimibe (ZETIA) 10 mg tablet Take 1 tab daily - glucagon, human recombinant, (GLUCAGON EMERGENCY KIT, HUMAN,) 1 mg injection Inject (1)one mg for insulin shock. - lisinopril (PRINIVIL) 10 mg tablet Take 1 tablet by mouth once daily. - cholecalciferol (VITAMIN D3) 1,000 unit tab Take 2 tablets by mouth once daily. - esomeprazole (NEXIUM) 40 mg capsule Take 1 capsule by mouth once daily. - tiZANidine (ZANAFLEX) 4 mg tablet Take 1 tablet by mouth once daily. - Glucosamine-Chondroitin (OSTEO BI-FLEX) 250-200 mg tab Takes two tablets daily - HYDROcodone-acetaminophe n (NORCO) 5-325 mg per tablet Take one-two tablets every six hours as needed for pain - sertraline (ZOLOFT) 50 mg tablet Take 1 tablet by mouth once daily. - mometasone (NASONEX) 50 mcg/actuation nasal spray Use 2 Sprays in the nose once daily. - COMPOUNDED PRESCRIPTION One touch ultra blue test strips, insulin pump, iddm, 250.00, tests 5 x daily. - dextrose (GLUCOSE GEL) 40 % gel Take 10 g by mouth as needed. - celecoxib (CELEBREX) 200 mg ORAL capsule Take 1 capsule by mouth once daily. - calcium citrate-vitamin D3 (CITRACAL + D) 315-200 mg-unit ORAL Tab Take by mouth once daily. 1200mg Calcium + Vit D 1000IU (total D is 3000IU daily) - multivitamin with minerals (ONE DAILY COMPLETE) ORAL Tab Take one(1) tablet daily. - Aspirin 81 mg ORAL Tab Take one(1) tablet daily. Meds Comments as of 11/08/2014: - Problem List As Of Date 12/11/2022 Noted Resolved DM w/o Complication Type II, Uncontrolled [IMO0*07/22/2005 12/18/2009 DM w/o Complication Type II [E11.9] 07/22/2005 12/18/2009 PURE HYPERCHOLESTEROLEM [E78.00] 02/18/2006 BREAST PROSTH MALFUNC [T85.49XA] 05/16/2006 VITAMIN D DEFICIENCY NOS [E55.9] 06/13/2008 Diabetes mellitus type 1, uncontrolled, without*12/18/2009 08/23/2016 Goiter [E04.9] 12/18/2009 TMJ Disorder 02/02/2010 Hypercalcemia [E83.52] 04/20/2010 Arthritis [M19.90] 11/02/2012 Primary osteoarthritis of first carpometacarpal*10/02/19 16 Localized superficial swelling, mass, or lump [*10/02/2015 Alkaline reflux esophagitis [K21.00] 10/16/2015 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] 10/16/2015 Spinal stenosis in cervical region [M48.02] 01/23/2016 Complex regional pain syndrome type 1 of right *01/26/2016 Insulin pump status [Z96.41] 02/21/2016 Type 1 diabetes mellitus with hypoglycaemia ni*02/21/2016 Bronchitis [J40] 02/21/2016 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] 03/01/2016 Localized primary osteoarthritis of carpometaca*03/01/2016 Family history of colon cancer [Z80.0] 04/18/2017 History of colonic polyps [Z86.010] 04/18/2017 Hiatal hernia [K44.9] 04/15/2019 Encounter Status:Closed by MJ KRUEGER on 12/11/22 [facility] 12-05-2022 CNPN Telephone (ENDOLN) -------- RODRIGUE WALLACE ([id number]) 1950 F Date Time Provider Department 12/05/22 [facility] During your visit today, we recorded the following information about you: Mj Krueger MA 12/05/2022 4:11 PM Signed Received a fax from [employer] requesting copy of patient labs for C Peptide and fasting glucose. Faxed results, Confirmation received. Allergies As of Date: 12/05/2022 Noted Allergy Reaction FOSAMAX (ALENDRONATE SODIUM) 11/08/2014 14 - Other: See Comments Comments: Leg cramps, severe MACRODANTIN (NITROFURANTOIN MACRO*05/23/2016 11 - Vomiting PENICILLINS 06/28/2005 9 - Itching Date Reviewed: 04/26/2022 Reviewed by: Araceli Nathan APRN.COMPUTER OPERATIONS MANAGER - Fully Assessed Reason for Visit: Patient Update [1234] Cmt: Jennya Prescriptions as of 12/05/2022 - amLODIPine (NORVASC) 10 mg tablet - gabapentin (NEURONTIN) 100 mg capsule - NOVOLOG U-100 INSULIN ASPART 100 unit/mL Use via insulin pump, 30 units daily - Blood-Glucose Meter,Continuous (DEXCOM G6 SWIMMING POOL SERVICER) misc USE TO TEST BLOOD SUGARS 5 TIMES DAILY - Blood-Glucose Sensor (DEXCOM G6 SENSOR) shayy USE TO TEST BLOOD SUGARS 5 TIMES DAILY - Blood-Glucose Transmitter (DEXCOM G6 TRANSMITTER) shayy USE TO TEST BLOOD SUGARS 5 TIMES DAILY - blood sugar diagnostic (CONTOUR NEXT TEST STRIPS) test strip USE TO TEST BLOOD SUGARS 5 TIMES DAILY - carisoprodol (SOMA ORAL) Take by mouth. - Lancets (Sport StreetTOUCH ULTRASOFT LANCETS) lancets Use to test blood sugar 8 times daily - Insulin Syringe-Needle U-100 0.5 mL 30 gauge x 5/16 syrg Use as directed four times daily for insulin injections in case of pump failure Dx: E10.649 - Blood-Glucose Meter (CONTOUR NEXT METER) - meloxicam (MOBIC) 15 mg tablet Take 15 mg by mouth once daily. - PROLIA 60 mg/mL syrg - ezetimibe (ZETIA) 10 mg tablet Take 1 tab daily - glucagon, human recombinant, (GLUCAGON EMERGENCY KIT, HUMAN,) 1 mg injection Inject (1)one mg for insulin shock. - lisinopril (PRINIVIL) 10 mg tablet Take 1 tablet by mouth once daily. - cholecalciferol (VITAMIN D3) 1,000 unit tab Take 2 tablets by mouth once daily. - esomeprazole (NEXIUM) 40 mg capsule Take 1 capsule by mouth once daily. - tiZANidine (ZANAFLEX) 4 mg tablet Take 1 tablet by mouth once daily. - Glucosamine-Chondroitin (OSTEO BI-FLEX) 250-200 mg tab Takes two tablets daily - HYDROcodone-acetaminophe n (NORCO) 5-325 mg per tablet Take one-two tablets every six hours as needed for pain - sertraline (ZOLOFT) 50 mg tablet Take 1 tablet by mouth once daily. - mometasone (NASONEX) 50 mcg/actuation nasal spray Use 2 Sprays in the nose once daily. - COMPOUNDED PRESCRIPTION One touch ultra blue test strips, insulin pump, iddm, 250.00, tests 5 x daily. - dextrose (GLUCOSE GEL) 40 % gel Take 10 g by mouth as needed. - celecoxib (CELEBREX) 200 mg ORAL capsule Take 1 capsule by mouth once daily. - calcium citrate-vitamin D3 (CITRACAL + D) 315-200 mg-unit ORAL Tab Take by mouth once daily. 1200mg Calcium + Vit D 1000IU (total D is 3000IU daily) - multivitamin with minerals (ONE DAILY COMPLETE) ORAL Tab Take one(1) tablet daily. - Aspirin 81 mg ORAL Tab Take one(1) tablet daily. Meds Comments as of 11/08/2014: - Problem List As Of Date 12/05/2022 Noted Resolved DM w/o Complication Type II, Uncontrolled [IMO0*07/22/2005 12/18/2009 DM w/o Complication Type II [E11.9] 07/22/2005 12/18/2009 PURE HYPERCHOLESTEROLEM [E78.00] 02/18/2006 BREAST PROSTH MALFUNC [T85.49XA] 05/16/2006 VITAMIN D DEFICIENCY NOS [E55.9] 06/13/2008 Diabetes mellitus type 1, uncontrolled, without*12/18/2009 08/23/2016 Goiter [E04.9] 12/18/2009 TMJ Disorder 02/02/2010 Hypercalcemia [E83.52] 04/20/2010 Arthritis [M19.90] 11/02/2012 Primary osteoarthritis of first carpometacarpal*10/02/19 16 Localized superficial swelling, mass, or lump [*10/02/2015 Alkaline reflux esophagitis [K21.00] 10/16/2015 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] 10/16/2015 Spinal stenosis in cervical region [M48.02] 01/23/2016 Complex regional pain syndrome type 1 of right *01/26/2016 Insulin pump status [Z96.41] 02/21/2016 Type 1 diabetes mellitus with hypoglycaemia ni*02/21/2016 Bronchitis [J40] 02/21/2016 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] 03/01/2016 Localized primary osteoarthritis of carpometaca*03/01/2016 Family history of colon cancer [Z80.0] 04/18/2017 History of colonic polyps [Z86.010] 04/18/2017 Hiatal hernia [K44.9] 04/15/2019 Encounter Status:Closed [facility] RHEAN [facility] (ENDOLN) -------- RODRIGUE WALLACE ([id number]) 1950 F Date Time Provider Department 11/06/22 [facility] During your visit today, we recorded the following information about you: Mj Krueger MA 11/06/2022 1:49 PM Signed Received a form from [facility] for CGM and Pump supplies. Requesting last office notes within last 6 months. Printed notes from 04/26/22. Faxed completed form and notes. Confirmation received. Allergies As of Date: 11/06/2022 Noted Allergy Reaction FOSAMAX (ALENDRONATE SODIUM) 11/08/2014 14 - Other: See Comments Comments: Leg cramps, severe MACRODANTIN (NITROFURANTOIN MACRO*05/23/2016 11 - Vomiting PENICILLINS 06/28/2005 9 - Itching Date Reviewed: 04/26/2022 Reviewed by: Araceli Nathan APRN.[facility] - Fully Assessed Reason for Visit: Forms [913] Cmt: [facility] Nefsis Prescriptions as of 11/06/2022 - amLODIPine (NORVASC) 10 mg tablet - gabapentin (NEURONTIN) 100 mg capsule - NOVOLOG U-100 INSULIN ASPART 100 unit/mL Use via insulin pump, 30 units daily - Blood-Glucose Meter,Continuous (DEXCOM G6 SWIMMING POOL SERVICER) misc USE TO TEST BLOOD SUGARS 5 TIMES DAILY - Blood-Glucose Sensor (DEXCOM G6 SENSOR) shayy USE TO TEST BLOOD SUGARS 5 TIMES DAILY - Blood-Glucose Transmitter (DEXCOM G6 TRANSMITTER) shayy USE TO TEST BLOOD SUGARS 5 TIMES DAILY - blood sugar diagnostic (CONTOUR NEXT TEST STRIPS) test strip USE TO TEST BLOOD SUGARS 5 TIMES DAILY - carisoprodol (SOMA ORAL) Take by mouth. - Lancets (ONETOUCH ULTRASOFT LANCETS) lancets Use to test blood sugar 8 times daily - Insulin Syringe-Needle U-100 0.5 mL 30 gauge x /16 syrg Use as directed four times daily for insulin injections in case of pump failure Dx: E10.649 - Blood-Glucose Meter (CONTOUR NEXT METER) - meloxicam (MOBIC) 15 mg tablet Take 15 mg by mouth once daily. - PROLIA 60 mg/mL syrg - ezetimibe (ZETIA) 10 mg tablet Take 1 tab daily - glucagon, human recombinant, (GLUCAGON EMERGENCY KIT, HUMAN,) 1 mg injection Inject (1)one mg for insulin shock. - lisinopril (PRINIVIL) 10 mg tablet Take 1 tablet by mouth once daily. - cholecalciferol (VITAMIN D3) 1,000 unit tab Take 2 tablets by mouth once daily. - esomeprazole (NEXIUM) 40 mg capsule Take 1 capsule by mouth once daily. - tiZANidine (ZANAFLEX) 4 mg tablet Take 1 tablet by mouth once daily. - Glucosamine-Chondroitin (OSTEO BI-FLEX) 250-200 mg tab Takes two tablets daily - HYDROcodone-acetaminophe n (NORCO) 5-325 mg per tablet Take one-two tablets every six hours as needed for pain - sertraline (ZOLOFT) 50 mg tablet Take 1 tablet by mouth once daily. - mometasone (NASONEX) 50 mcg/actuation nasal spray Use 2 Sprays in the nose once daily. - COMPOUNDED PRESCRIPTION One touch ultra blue test strips, insulin pump, iddm, 250.00, tests 5 x daily. - dextrose (GLUCOSE GEL) 40 % gel Take 10 g by mouth as needed. - celecoxib (CELEBREX) 200 mg ORAL capsule Take 1 capsule by mouth once daily. - calcium citrate-vitamin D3 (CITRACAL + D) 315-200 mg-unit ORAL Tab Take by mouth once daily. 1200mg Calcium + Vit D 1000IU (total D is 3000IU daily) - multivitamin with minerals (ONE DAILY COMPLETE) ORAL Tab Take one(1) tablet daily. - Aspirin 81 mg ORAL Tab Take one(1) tablet daily. 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] 05/16/2006 VITAMIN D DEFICIENCY NOS [E55.9] 06/13/2008 Diabetes mellitus type 1, uncontrolled, without*12/18/2009 08/23/2016 Goiter [E04.9] 12/18/2009 TMJ Disorder 02/02/2010 Hypercalcemia [E83.52] 04/20/2010 Arthritis [M19.90] 11/02/2012 Primary osteoarthritis of first carpometacarpal*10/02/19 16 Localized superficial swelling, mass, or lump [*10/02/2015 Alkaline reflux esophagitis [K21.00] 10/16/2015 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] 10/16/2015 Spinal stenosis in cervical region [M48.02] 01/23/2016 Complex regional pain syndrome type 1 of right *01/26/2016 Insulin pump status [Z96.41] 02/21/2016 Type 1 diabetes mellitus with hypoglycaemia ni*02/21/2016 Bronchitis [J40] 02/21/2016 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 Vera Leggett Cholesterol [Mass/Vol] 152 mg/dL Normal <=200 [facility] Comment on above: Performed By: #### L IPID #### [facility] [address] [address] [address] Vera Leggett Cholesterol in HDL [Mass/Vol] 104 mg/dL Critically high 40-60 [facility] Comment on above: Performed By: #### L IPID #### [facility] [address] [address] [address] Vera Leggett Cholesterol in LDL [Mass/Vol] 34.4 mg/dL Normal [facility] Comment on above: Performed By: #### L IPID #### [facility] [address] [address] [address] Vera Leggett Cholesterol.total/ Cholesterol in HDL [Mass ratio] 1.5 {ratio} Normal [facility] Comment on above: Performed By: #### L IPID #### [facility] [address] [address] [address] Vera Leggett HDL NORMAL > or = 60 mg/dl - LO W CARDIOVASCULAR RISK <40 mg/dl - HIGH CARDIOVASCULAR RISK Normal [facility] Comment on above: Performed By: #### L IPID #### [facility] [address] [address] [address] Vera Leggett LDL CALC NORMAL SEE BELOW Normal [facility] Comment on above: Result Comment: <100 mg/dl OPTIMAL 100 - 129 mg/dl NEAR OR ABOVE OPTIMAL 130 - 159 mg/dl BORDERLINE HIGH 160 - 189 mg/dl HIGH >190 mg/dl VERY HIGH Performed By: #### L IPID #### [facility] [address] [address] [address] Vera Leggett Triglyceride [Mass/Vol] 68 mg/dL Normal <=150 [facility] Comment on above: Performed By: #### L IPID #### [facility] [address] [address] [address] Vera Leggett VLDL CALC 13.6 mg/dL Normal [facility] Comment on above: Performed By: #### L IPID #### [facility] [address] [address] [address] Vera Zuniga 07-04-2022 CNPN Telephone (ENDOLN) -------- RODRIGUE WALLACE ([id number]) 1950 F Date Time Provider Department 07/04/22 [facility] During your visit today, we recorded the following information about you: Mj Krueger MA 07/04/2022 1:22 PM Signed Received a fax from [facility] requesting last 2 office notes. Faxed notes from 09/26/21 and 04/26/22 to [phone]. Confirmation received. Allergies As of Date: 07/04/2022 Noted Allergy Reaction FOSAMAX (ALENDRONATE SODIUM) 11/08/2014 14 - Other: See Comments Comments: Leg cramps, severe MACRODANTIN (NITROFURANTOIN MACRO*05/23/2016 11 - Vomiting PENICILLINS 06/28/2005 9 - Itching Date Reviewed: 04/26/2022 Reviewed by: Araceli Nathan APRN.[facility] - Fully Assessed Reason for Visit: Patient Update [1234] Cmt: [facility] Prescriptions as of 07/10/2022 - amLODIPine (NORVASC) 10 mg tablet - gabapentin (NEURONTIN) 100 mg capsule - NOVOLOG U-100 INSULIN ASPART 100 unit/mL Use via insulin pump, 30 units daily - Blood-Glucose Meter,Continuous (DEXCOM G6 SWIMMING POOL SERVICER) misc USE TO TEST BLOOD SUGARS 5 TIMES DAILY - Blood-Glucose Sensor (DEXCOM G6 SENSOR) shayy USE TO TEST BLOOD SUGARS 5 TIMES DAILY - Blood-Glucose Transmitter (DEXCOM G6 TRANSMITTER) shayy USE TO TEST BLOOD SUGARS 5 TIMES DAILY - blood sugar diagnostic (CONTOUR NEXT TEST STRIPS) test strip USE TO TEST BLOOD SUGARS 5 TIMES DAILY - carisoprodol (SOMA ORAL) Take by mouth. - Lancets (ONETOUCH ULTRASOFT LANCETS) lancets Use to test blood sugar 8 times daily - Insulin Syringe-Needle U-100 0.5 mL 30 gauge x 5/16 syrg Use as directed four times daily for insulin injections in case of pump failure Dx: E10.649 - Blood-Glucose Meter (CONTOUR NEXT METER) - meloxicam (MOBIC) 15 mg tablet Take 15 mg by mouth once daily. - PROLIA 60 mg/mL syrg - ezetimibe (ZETIA) 10 mg tablet Take 1 tab daily - glucagon, human recombinant, (GLUCAGON EMERGENCY KIT, HUMAN,) 1 mg injection Inject (1)one mg for insulin shock. - lisinopril (PRINIVIL) 10 mg tablet Take 1 tablet by mouth once daily. - cholecalciferol (VITAMIN D3) 1,000 unit tab Take 2 tablets by mouth once daily. - esomeprazole (NEXIUM) 40 mg capsule Take 1 capsule by mouth once daily. - tiZANidine (ZANAFLEX) 4 mg tablet Take 1 tablet by mouth once daily. - Glucosamine-Chondroitin (OSTEO BI-FLEX) 250-200 mg tab Takes two tablets daily - HYDROcodone-acetaminophe n (NORCO) 5-325 mg per tablet Take one-two tablets every six hours as needed for pain - sertraline (ZOLOFT) 50 mg tablet Take 1 tablet by mouth once daily. - mometasone (NASONEX) 50 mcg/actuation nasal spray Use 2 Sprays in the nose once daily. - COMPOUNDED PRESCRIPTION One touch ultra blue test strips, insulin pump, iddm, 250.00, tests 5 x daily. - dextrose (GLUCOSE GEL) 40 % gel Take 10 g by mouth as needed. - celecoxib (CELEBREX) 200 mg ORAL capsule Take 1 capsule by mouth once daily. - calcium citrate-vitamin D3 (CITRACAL + D) 315-200 mg-unit ORAL Tab Take by mouth once daily. 1200mg Calcium + Vit D 1000IU (total D is 3000IU daily) - multivitamin with minerals (ONE DAILY COMPLETE) ORAL Tab Take one(1) tablet daily. - Aspirin 81 mg ORAL Tab Take one(1) tablet daily. Meds Comments as of 11/08/2014: - Problem List As Of Date 07/04/2022 Noted Resolved DM w/o Complication Type II, Uncontrolled [IMO0*07/22/2005 12/18/2009 DM w/o Complication Type II [E11.9] 07/22/2005 12/18/2009 PURE HYPERCHOLESTEROLEM [E78.00] 02/18/2006 BREAST PROSTH MALFUNC [T85.49XA] 05/16/2006 VITAMIN D DEFICIENCY NOS [E55.9] 06/13/2008 Diabetes mellitus type 1, uncontrolled, without*12/18/2009 08/23/2016 Goiter [E04.9] 12/18/2009 TMJ Disorder 02/02/2010 Hypercalcemia [E83.52] 04/20/2010 Arthritis [M19.90] 11/02/2012 Primary osteoarthritis of first carpometacarpal*10/02/19 16 Localized superficial swelling, mass, or lump [*10/02/2015 Alkaline reflux esophagitis [K21.00] 10/16/2015 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] 10/16/2015 Spinal stenosis in cervical region [M48.02] 01/23/2016 Complex regional pain syndrome type 1 of right *01/26/2016 Insulin pump status [Z96.41] 02/21/2016 Type 1 diabetes mellitus with hypoglycaemia ni*02/21/2016 Bronchitis [J40] 02/21/2016 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] 03/01/2016 Localized primary osteoarthritis of carpometaca*03/01/2016 Family history of colon cancer [Z80.0] 04/18/2017 History of colonic polyps [Z86.010] 04/18/2017 Hiatal hernia [K44.9] 04/15/2019 Encounter Status:Closed by MJ KRUEGER on 07/10/22 [facility] CNOVon 04-26-2022 CNOV Office Visit (ENDOLN ) -------- RODRIGUE WALLACE ([id number]) 1950 F Date Time Provider Department 04/26/22 10:00 AM ARACELI NATHAN During your visit today, we recorded the following information about you: Pulse Blood pressure Weight Height 74/minute 126/84 72.1 kg 1.6 m Araceli Nathan APRN.[employer]GER 04/26/2022 10:30 AM Signed 72yo WF with h/o DM1 since age 56, on Medtronic 670G pump in 09/2019, hypoglycemia unawareness, neuropathy, HTN, HLP, osteoporosis, here for f/u, followed by Dr. Hunter and I. At [facility] we increased carb ratio as she was consistently underestimating carbs to avoid low blood sugars. We also ordered Dexcom. She stopped using Medtronic sensor due to excessive alarms and need for frequent calibration. She is happy with Dexcom. She reports waking up low almost every morning. She admits carb counting is close to accurate (for example, she enters 30 carbs for Belvita in AM which is 36 carbs). Does not feel low unless BG is in 50s. Is asymptomatic sometimes in the 30s and 40s. had to treat her for severe hypoglycemia in 2019. Had DKA in past for which she was hospitalized. Patient checks blood sugar 5 times per day due to fluctuating readings. CGM/pump data as below. Other significant DM comorbidities: peripheral neuropathy Last saw ophthalmology: 09/11 Current Diabetes Medications, Dosage, Frequency: Medtronic 670G Basal: ? MN 0.500 9a 0.800 Noon 0.700 5p 0.650 10p 0.450 ?? Carb MN 20 ?? Sensitivity MN 50 AIT 3 hours Target BG MN 120-160 8a 90-140 11p 120-160 TDD 20 units Basal 71%, Bolus 29% Carbs/day 67 g compliance with diet has been good, entering carbs into pump consistently exercise: walks in house Patient has had hypoglycemia episodes; and was able to treat hypoglycemia by self. The patient experiences hypoglycemia at the following times: varies, history of severe hypoglycemia in the past Report of Self Monitoring of Blood Glucose: Summary of Personal CGM Findings: Dates worn: 04/13/2022-04/26/2022 CGM Type: Dexcom 1- CGM recording is adequate for interpretation. Worn 92% of time. 2- Average glucose is 176 mg/dl. 3. 53% time in range 70-180mg/dL 4. Coefficient of variation: 45% 5. Total frequency of hypoglycemia: 5% with BG<70 * Hypoglycemia patterns: early AM and prior to lunch *Nocturnal hypoglycemia noted 6- Hyperglycemic episodes 42% with BG>180 * Hyperglycemia Patterns: after breakfast PAST MEDICAL HISTORY Diagnosis Date - Former smoker - GERD (gastroesophageal reflux disease) - HTN (hypertension) - Hypercholesteremia - IDDM (insulin dependent diabetes mellitus) - Mental disorder - Snoring Past Family and Social History reviewed and updated, as needed. Current Outpatient Medications on File Prior to Visit Medication Sig - Blood-Glucose Meter,Continuous (DEXCOM G6 SWIMMING POOL SERVICER) misc USE TO TEST BLOOD SUGARS 5 TIMES DAILY - Blood-Glucose Sensor (DEXCOM G6 SENSOR) shayy USE TO TEST BLOOD SUGARS 5 TIMES DAILY - Blood-Glucose Transmitter (DEXCOM G6 TRANSMITTER) shayy USE TO TEST BLOOD SUGARS 5 TIMES DAILY - blood sugar diagnostic (CONTOUR NEXT TEST STRIPS) test strip USE TO TEST BLOOD SUGARS 5 TIMES DAILY - carisoprodol (SOMA ORAL) Take by mouth. - Lancets (Sport StreetTOUCH ULTRASOFT LANCETS) lancets Use to test blood sugar 8 times daily - Insulin Syringe-Needle U-100 0.5 mL 30 gauge x 5/16 syrg Use as directed four times daily for insulin injections in case of pump failure Dx: E10.649 - NOVOLOG U-100 INSULIN ASPART 100 unit/mL Use via insulin pump, 30 units daily - Blood-Glucose Meter (CONTOUR NEXT METER) - meloxicam (MOBIC) 15 mg tablet Take 15 mg by mouth once daily. (Patient not taking: Reported on 06/12/2021 ) - PROLIA 60 mg/mL syrg (Patient not taking: Reported on 06/12/2021 ) - ezetimibe (ZETIA) 10 mg tablet Take 1 tab daily - Subcutaneous Insulin Pump (PARADIGM INSULIN PUMP) [facility] [place] Basal: 24:00- 00.35. 300-0.55; 0700-0.75 2300-0.375. Bolus: 6:00 1/8 g CHO;10:30 1/9; 1700-1/10; 2200 1/15 Theodore: 1 for 60 >120 - glucagon, human recombinant, (GLUCAGON EMERGENCY KIT, HUMAN,) 1 mg injection Inject (1)one mg for insulin shock. - lisinopril (PRINIVIL) 10 mg tablet Take 1 tablet by mouth once daily. - cholecalciferol (VITAMIN D3) 1,000 unit tab Take 2 tablets by mouth once daily. - esomeprazole (NEXIUM) 40 mg capsule Take 1 capsule by mouth once daily. - tiZANidine (ZANAFLEX) 4 mg tablet Take 1 tablet by mouth once daily. (Patient not taking: Reported on 06/12/2021 ) - Glucosamine-Chondroitin (OSTEO BI-FLEX) 250-200 mg tab Takes two tablets daily - HYDROcodone-acetaminophe n (NORCO) 5-325 mg per tablet Take one-two tablets every six hours as needed for pain - sertraline (ZOLOFT) 50 mg tablet Take 1 tablet by mouth once daily. - mometasone (NASONEX) 50 mcg/actuation nasal spray Use 2 Sprays in t (more content not included)... Normal [facility] CT HEAD WO CONon 03-19-2022 CT HEAD WO CON EXAMINATION: CT HEAD WO CON HISTORY: Transient cerebral ischemia . This is a 72-year-old with memory loss and forgetfulness. COMPARISON: None. TECHNIQUE: CT examination of the head without IV contrast. Sagittal and coronal reconstructions were obtained. Dose reduction techniques were achieved by using automated exposure control and/or adjustment of mA and/or kV according to patient size and/or use of iterative reconstruction technique. FINDINGS: The ventricles are near the upper limits of normal in size, the lateral ventricles are slightly asymmetric but within normal variation, and the third ventricles in the midline. The sylvian fissures and cortical sulci are unremarkable. There is patchy diminished attenuation in the deep white matter diffusely. This is a bit more prominent in the deep white matter posterior to the body of the right lateral ventricle in the right parietal lobe centered at image 26 of series 6. This is raises the possibility of a subtle infarct, although no other changes are present in the adjacent parenchyma and cortical sulci. There is no other evidence of an intracranial hemorrhage, mass lesion or apparent acute infarct. Benign calcifications are seen in the choroid plexus. The cerebellum and visualized brainstem are intact. Mild mucosal thickening is seen in the posterior aspect of the sphenoid sinuses and the paranasal sinuses are otherwise clear. IMPRESSION: Subtle diminished attenuation is seen in the deep white matter in the right parietal lobe posteriorly, raising the possibility of subtle infarct. This may simply be focal prominence of small vessel ischemic change. There is no other evidence of an intracranial hemorrhage, mass lesion or apparent acute infarct. Small vessel ischemic changes are noted in the deep white matter otherwise. A small amount of mucosal thickening is seen in the sphenoid sinus. The paranasal sinuses are otherwise clear. Direct comparison with a previous study is recommended to verify stability of these findings. If the patient's symptoms persist or if further evaluation is clinically indicated then perhaps an MRI study of the brain would be helpful. Electronically authenticated by: TRUE COELLO Date: 2022-03-19 16:05 Normal [facility] US CAROTID ART BILon 022 US CAROTID ART LISA EXAMINATION: US LAU TID ART LISA HISTORY: Transient cerebral ischemia COMPARISON: No relevant comparison available. TECHNIQUE: Duplex Doppler ultrasound analysis of carotid and vertebral arteries. . Bilateral carotid arterial duplex examination was performed using B-mode, color flow and spectral analysis. Carotid stenosis is reported according to validated velocity parameters, similar to NASCET criteria. FINDINGS: RIGHT CAROTID ARTERY Minimal atherosclerotic plaque Subclavian: PSV: 100.0 cm/s cm/s EDV: 0.0 cm/s cm/s CCA: Prox: PSV: 101.1 cm/s cm/s EDV: 10.7 cm/s cm/s Mid: PSV: 97.9 cm/s cm/s EDV: 7.4 cm/s cm/s Distal: PSV: 64.2 cm/s cm/s EDV: 18.0 cm/s cm/s BULB: PSV: 58.1 cm/s cm/s EDV: 11.0 cm/s cm/s ICA: Prox: PSV: 63.3 cm/s cm/s EDV: 16.2 cm/s cm/s Mid: PSV: 66.0 cm/s cm/s EDV: 20.6 cm/s cm/s Distal: PSV: 113.4 cm/s cm/s EDV: 40.9 cm/s cm/s ECA: PSV: 60.9 cm/s cm/s EDV: 8.3 cm/s cm/s VERTEBRAL: PSV: 62.3 cm/s cm/s EDV: 9.7 cm/s cm/s ICA/CCA ratio: PSV: 1.8 EDV: 2.3 LEFT CAROTID ARTERY No atherosclerotic plaque Subclavian: PSV: 114.7 cm/s cm/s EDV: 3.4 cm/s CCA: Prox: PSV: 74.5 cm/s cm/s EDV: 15.0 cm/s Mid: PSV: 73.2 cm/s cm/s EDV: 12.4 cm/s Distal: PSV: 70.6 cm/s cm/s EDV: 17.6 cm/s BULB: PSV: 56.4 cm/s cm/s EDV: 12.4 cm/s ICA: Prox: PSV: 64.1 cm/s cm/s EDV: 15.0 cm/s Mid: PSV: 96.5 cm/s cm/s EDV: 18.9 cm/s Distal: PSV: 102.9 cm/s cm/s EDV: 33.1 cm/s ECA: PSV: 66.7 cm/s cm/s EDV: 11.1 cm/s VERTEBRAL: PSV: 64.1 cm/s cm/s EDV: 16.3 cm/s ICA/CCA ratio: PSV: 1.5 EDV: 1.9 IMPRESSION: 0-49% flow stenosis in the internal carotid arteries Spectral Doppler US Thresholds (Reference: Marbin EG, et al. Radiology 2000; 214:247-252) Stenosis (%) PSV (cm/sec) VICA/VCCA 0-49 <150 <2.5 50-69 150-225 2.5-4.0 >70 >225 >4.0 Electronically authenticated by: JERAMY REYNA Date: 2022-03-19 17:01 Normal [facility] CNOVon 01-01-2022 CNOV Office Visit (ENDOLN ) -------- RODRIGUE WALLACE ([id number]) 1950 F Date Time Provider Department 01/01/22 1:00 PM ARACELI NATHAN During your visit today, we recorded the following information about you: Pulse Blood pressure Weight 80/minute 114/74 69.9 kg Araceli Nathan APRN.CNP 01/01/2022 2:03 PM Signed 71yo WF with h/o DM1 since age 56, on Medtronic 670G pump in 09/2019, hypoglycemia unawareness, neuropathy, HTN, HLP, osteoporosis, here for f/u Is still having lows but not as frequent. Does not feel low unless BG is in 50s. Is asymptomatic sometimes in the 30s and 40s. had to treat her for severe hypoglycemia in 2019. Had DKA in past for which she was hospitalized. Admits sugars have been higher lately. She had an ear infection and UTI for 10 days about 3-4 weeks ago and she had trouble bringing sugar down then. She is consistently reducing carb entry into pump by 30% or more as she reports she will have a low if entering in correct amount of carbs. Eats Belvita which is 36 carbs, she is entering in . She is having post meal elevations however. Patient checks blood sugar 5 times per day due to fluctuating readings: Her 14 day average = 213 Two lows in the past two weeks She stopped using Medtronic sensor due to excessive alarms and need for frequent calibration. Dexcom was ordered at previous visit but she has not been able to obtain yet. Other significant DM comorbidities: peripheral neuropathy Last saw ophthalmology: 09/11 Current Diabetes Medications, Dosage, Frequency: Medtronic 670G Basal: ? MN 0.500 9a 0.800 Noon 0.700 5p 0.650 10p 0.450 ?? Carb MN 15 ?? Sensitivity MN 50 AIT 3 hours Target BG MN 120-160 8a 90-140 11p 120-160 compliance with diet has been good, entering carbs into pump consistently exercise: walks in house Patient has had hypoglycemia episodes; and was able to treat hypoglycemia by self. The patient experiences hypoglycemia at the following times: varies, history of severe hypoglycemia in the past Report of Self Monitoring of Blood Glucose: See HPI PAST MEDICAL HISTORY Diagnosis Date - Former smoker - GERD (gastroesophageal reflux disease) - HTN (hypertension) - Hypercholesteremia - IDDM (insulin dependent diabetes mellitus) - Mental disorder - Snoring Past Family and Social History reviewed and updated, as needed. Current Outpatient Medications on File Prior to Visit Medication Sig - Blood-Glucose Meter,Continuous (DEXCOM G6 SWIMMING POOL SERVICER) misc USE TO TEST BLOOD SUGARS 5 TIMES DAILY - Blood-Glucose Sensor (DEXCOM G6 SENSOR) shayy USE TO TEST BLOOD SUGARS 5 TIMES DAILY - Blood-Glucose Transmitter (DEXCOM G6 TRANSMITTER) shayy USE TO TEST BLOOD SUGARS 5 TIMES DAILY - blood sugar diagnostic (CONTOUR NEXT TEST STRIPS) test strip USE TO TEST BLOOD SUGARS 5 TIMES DAILY - carisoprodol (SOMA ORAL) Take by mouth. - Lancets (ONETOUCH ULTRASOFT LANCETS) lancets Use to test blood sugar 8 times daily - Insulin Syringe-Needle U-100 0.5 mL 30 gauge x 5/16 syrg Use as directed four times daily for insulin injections in case of pump failure Dx: E10.649 - NOVOLOG U-100 INSULIN ASPART 100 unit/mL Use via insulin pump, 30 units daily - Blood-Glucose Meter (CONTOUR NEXT METER) - meloxicam (MOBIC) 15 mg tablet Take 15 mg by mouth once daily. (Patient not taking: Reported on 06/12/2021 ) - PROLIA 60 mg/mL syrg (Patient not taking: Reported on 06/12/2021 ) - ezetimibe (ZETIA) 10 mg tablet Take 1 tab daily - Subcutaneous Insulin Pump (PARADIGM INSULIN PUMP) [facility] [place] Basal: 24:00- 00.35. 300-0.55; 0700-0.75 2300-0.375. Bolus: 6:00 1/8 g CHO;10:30 1/9; 1700-1/10; 2200 1/15 Theodore: 1 for 60 >120 - glucagon, human recombinant, (GLUCAGON EMERGENCY KIT, HUMAN,) 1 mg injection Inject (1)one mg for insulin shock. - lisinopril (PRINIVIL) 10 mg tablet Take 1 tablet by mouth once daily. - cholecalciferol (VITAMIN D3) 1,000 unit tab Take 2 tablets by mouth once daily. - esomeprazole (NEXIUM) 40 mg capsule Take 1 capsule by mouth once daily. - tiZANidine (ZANAFLEX) 4 mg tablet Take 1 tablet by mouth once daily. (Patient not taking: Reported on 06/12/2021 ) - Glucosamine-Chondroitin (OSTEO BI-FLEX) 250-200 mg tab Takes two tablets daily - HYDROcodone-acetaminophe n (NORCO) 5-325 mg per tablet Take one-two tablets every six hours as needed for pain - sertraline (ZOLOFT) 50 mg tablet Take 1 tablet by mouth once daily. - mometasone (NASONEX) 50 mcg/actuation nasal spray Use 2 Sprays in the nose once daily. - COMPOUNDED PRESCRIPTION One touch ultra blue test strips, insulin pump, iddm, 250.00, tests 5 x daily. - dextrose (GLUCOSE GEL) 40 % gel Take 10 g by mouth as needed. - celecoxib (CELEBREX) 200 mg ORAL capsule Take 1 capsule by mouth once daily. - calcium citrate-vitamin D3 (CITRACAL + D) 315-200 mg-unit ORAL Tab Hai (more content not included)... Normal [facility] CNPNon 01-01-2022 CNPN Telephone (ENDOLN) -------- RODRIGUE WALLACE ([id number]) 1950 F Date Time Provider Department 01/01/22 ARACELI NATHAN ENDOCORRIE During your visit today, we recorded the following information about you: Mj Krueger MA 01/01/2022 1:42 PM Signed Call placed to [facility] supplies to inquire for a form for Dexcom G6. [facility] states we can fax a prescription to : [phone] and they will send us what form is needed. Araceli Nathan APRN.RHEA 01/01/2022 1:52 PM Signed Rx printed. Please fax and give patient a call to let her know we are sending this. Araceli Nathan APRN.RHEA 01/01/2022 1:54 PM Signed Addended by: ARACELI NATHAN on: 01/01/2022 01:54 PM Modules accepted: Orders Mj Krueger MA 01/01/2022 3:07 PM Signed Prescriptions faxed to Diabetes Management as requested in below message. Confirmation received. Called patient to update. Rodrigue gave verbal understanding. 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) [E10.649] Insulin pump status [Z96.41] Order(s):Blood-Glucose Meter,Continuous ([employer] G6 SWIMMING POOL SERVICER) miscUSE TO TEST BLOOD SUGARS 5 TIMES DAILYDisp: 1 EachRfl: 0 Blood-Glucose Sensor ([employer] G6 SENSOR) deviUSE TO TEST BLOOD SUGARS 5 TIMES DAILYDisp: 3 EachRfl: 11 Blood-Glucose Transmitter ([employer] G6 TRANSMITTER) deviUSE TO TEST BLOOD SUGARS 5 TIMES DAILYDisp: 1 EachRfl: 3 Prescriptions as of 01/01/2022 - amLODIPine (NORVASC) 10 mg tablet - gabapentin (NEURONTIN) 100 mg capsule - NOVOLOG U-100 INSULIN ASPART 100 unit/mL Use via insulin pump, 30 units daily - Blood-Glucose Meter,Continuous ([employer] G6 SWIMMING POOL SERVICER) misc USE TO TEST BLOOD SUGARS 5 TIMES DAILY - Blood-Glucose Sensor ([employer] G6 SENSOR) shayy USE TO TEST BLOOD SUGARS 5 TIMES DAILY - Blood-Glucose Transmitter ([employer] G6 TRANSMITTER) shayy USE TO TEST BLOOD SUGARS 5 TIMES DAILY - blood sugar diagnostic (CONTOUR NEXT TEST STRIPS) test strip USE TO TEST BLOOD SUGARS 5 TIMES DAILY - carisoprodol (SOMA ORAL) Take by mouth. - Lancets (ONETOUCH ULTRASOFT LANCETS) lancets Use to test blood sugar 8 times daily - Insulin Syringe-Needle U-100 0.5 mL 30 gauge x 5/16 syrg Use as directed four times daily for insulin injections in case of pump failure Dx: E10.649 - Blood-Glucose Meter (CONTOUR NEXT METER) - meloxicam (MOBIC) 15 mg tablet Take 15 mg by mouth once daily. - PROLIA 60 mg/mL syrg - ezetimibe (ZETIA) 10 mg tablet Take 1 tab daily - glucagon, human recombinant, (GLUCAGON EMERGENCY KIT, HUMAN,) 1 mg injection Inject (1)one mg for insulin shock. - lisinopril (PRINIVIL) 10 mg tablet Take 1 tablet by mouth once daily. - cholecalciferol (VITAMIN D3) 1,000 unit tab Take 2 tablets by mouth once daily. - esomeprazole (NEXIUM) 40 mg capsule Take 1 capsule by mouth once daily. - tiZANidine (ZANAFLEX) 4 mg tablet Take 1 tablet by mouth once daily. - Glucosamine-Chondroitin (OSTEO BI-FLEX) 250-200 mg tab Takes two tablets daily - HYDROcodone-acetaminophe n (NORCO) 5-325 mg per tablet Take one-two tablets every six hours as needed for pain - sertraline (ZOLOFT) 50 mg tablet Take 1 tablet by mouth once daily. - mometasone (NASONEX) 50 mcg/actuation nasal spray Use 2 Sprays in the nose once daily. - COMPOUNDED PRESCRIPTION One touch ultra blue test strips, insulin pump, iddm, 250.00, tests 5 x daily. - dextrose (GLUCOSE GEL) 40 % gel Take 10 g by mouth as needed. - celecoxib (CELEBREX) 200 mg ORAL capsule Take 1 capsule by mouth once daily. - calcium citrate-vitamin D3 (CITRACAL + D) 315-200 mg-unit ORAL Tab Take by mouth once daily. 1200mg Calcium + Vit D 1000IU (total D is 3000IU daily) - multivitamin with minerals (ONE DAILY COMPLETE) ORAL Tab Take one(1) tablet daily. - Aspirin 81 mg ORAL Tab Take one(1) tablet daily. 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 Normal [facility] Q - CULTURE,URINE,ROUTINEon 11-13-2021 CULTURE, URINE, ROUTINE SEE NOTE Normal [facility] Parts Control Clerk Comment on above: Order Comment: [facility] performed at: QPT, [employer] [facility], [address], [address] [facility], [place], [address], Facility Service Associate: Félix Elder MD [facility] Collection Date/Time: [facility] Results Received Date/Time: [facility] Reported Date/Time: FASTING: UNKNOWN Result Comment: CULT URE, URINE, ROUTINE Micro Number: [id number] Test Status: Final Specimen Source: Urine Specimen Quality: Adequate Result: No Growth Performed By: #### [id number] #### [facility] Default [address] [place] [address] LUMBAR SPINE 2 OR 3 VIEWSon 07-19-2021 LUMBAR SPINE 2 OR 3 VIEWS STUDY: LUMBAR SPINE 2 OR 3 VIEWS; 07/19/2021 12:04 pm INDICATION: PAIN. COMPARISON: None. ACCESSION NUMBER(S): [id number] ORDERING CLINICIAN: Katey Clark FINDINGS: Metallic interbody graft at L5-S1. Mild compression fractures at L1 and L2. Moderate compression fracture at L4. No spondylolisthesis. Multilevel facet arthropathy. IMPRESSION: Age-indeterminate compression fractures at L1, L2, and L4. Degenerative changes. L5-S1 fusion. Normal [facility] HISTORY PHYSICALon 9 HISTORY PHYSICAL HNO ID: [id number] Author: Haven Nixon (PacBARBARA Pisano Service: ? Author Type: Physician Prevocational/Rehabilitation Counselor Type: HANDP Filed: 04/15/2019 8:46 AM Note Text: PROCEDURAL SEDATION HISTORY AND PHYSICAL EXAM SERVICE DATE: 04/15/2019 SERVICE TIME: 8:45 AM Subjective HPI: This is a 69 year old female who presents with hiatal hernia and early satiety. PAST ANESTHESIA HISTORY: No history of adverse event PAST MEDICAL HISTORY Diagnosis Date - Former smoker - GERD (gastroesophageal reflux disease) - HTN (hypertension) - Hypercholesteremia - IDDM (insulin dependent diabetes mellitus) (HCC) - Mental disorder - Snoring PAST SURGICAL HISTORY Procedure Laterality Date - ANTERIOR DISCECTOMY - COLONOSCOPY 06/30/2017 [place]abbaa- diverticulosis, repeat in 5 years - EGD 10/16/15 - ENLARGE BREAST WITH IMPLANT 1977 bilateral silicone implants - KNEE SCOPE,DIAGNOSTIC Right 04/11/10 Arthroscopy, knee - PAST SURGICAL HISTORY OF 03/22/10 pulled abscess tooth: cipro for 10 days. - PAST SURGICAL HISTORY OF right shoulder surgery - PAST SURGICAL HISTORY OF Left 11/02/15 arthroplasty base L thumb. - TOTAL ABDOM HYSTERECTOMY 1990 RAUL-BSO Prior to Admission medications as of 04/15/19 0820 Medication Sig Last Dose Taking ezetimibe (ZETIA) 10 mg tablet Take 1 tab daily 04/14/2019 at Unknown time Yes lisinopril (PRINIVIL) 10 mg tablet Take 1 tablet by mouth once daily. 04/14/2019 at Unknown time Yes cholecalciferol (VITAMIN D3) 1,000 unit tab Take 2 tablets by mouth once daily. 04/14/2019 at Unknown time Yes esomeprazole (NEXIUM) 40 mg capsule Take 1 capsule by mouth once daily. 04/14/2019 at Unknown time Yes tiZANidine (ZANAFLEX) 4 mg tablet Take 1 tablet by mouth once daily. 04/14/2019 at Unknown time Yes sertraline (ZOLOFT) 50 mg tablet Take 1 tablet by mouth once daily. 04/14/2019 at Unknown time Yes mometasone (NASONEX) 50 mcg/actuation nasal spray Use 2 Sprays in the nose once daily. 04/14/2019 at Unknown time Yes calcium citrate-vitamin D3 (CITRACAL + D) 315-200 mg-unit ORAL Tab Take by mouth once daily. 1200mg Calcium + Vit D 1000IU (total D is 3000IU daily) 04/14/2019 at Unknown time Yes multivitamin with minerals (ONE DAILY COMPLETE) ORAL Tab Take one(1) tablet daily. 04/14/2019 at Unknown time Yes NOVOLOG U-100 INSULIN ASPART 100 unit/mL soln INJECT 60 TO 70 UNITS DAILY VIA INSULIN PUMP Unknown at Unknown time PROLIA 60 mg/mL syrg ONETOUCH ULTRA TEST test strip USE TO TEST BLOOD GLUCOSE FIVE TIMES A DAY Subcutaneous Insulin Pump (PARADIGM INSULIN PUMP) [facility] [place] Basal: 24:00- 00.35. 300-0.55; 0700-0.75 2300-0.375. Bolus: 6:00 1/8 g CHO;10:30 1/9; 1700-10/01; 2200 10/06 Theodore: 1 for 60 >120 glucagon, human recombinant, (GLUCAGON EMERGENCY KIT, HUMAN,) 1 mg injection Inject (1)one mg for insulin shock. Glucosamine-Chondroitin (OSTEO BI-FLEX) 250-200 mg tab Takes two tablets daily HYDROcodone-acetaminophe n (NORCO) 5-325 mg per tablet Take one-two tablets every six hours as needed for pain COMPOUNDED PRESCRIPTION One touch ultra blue test strips, insulin pump, iddm, 250.00, tests 5 x daily. dextrose (GLUCOSE GEL) 40 % gel Take 10 g by mouth as needed. celecoxib (CELEBREX) 200 mg ORAL capsule Take 1 capsule by mouth once daily. lancets(ONE TOUCH ULTRASOFT LANCETS) uses 5-6 a day. Aspirin 81 mg ORAL Tab Take one(1) tablet daily. ALLERGIES Allergen Reactions - Fosamax [Alendronat* Other: See Comments Leg cramps, severe - Macrodantin [Nitrof* Vomiting - Penicillins Itching Objective PHYSICAL EXAM: The remainder of the physical exam is noncontributory. AIRWAY: Airway Visualization of Uvula: Yes Mouth opening greater than 2 fingerbreadths: Yes Neck Full Range of Motion: Yes LUNGS: Lungs clear to auscultation, Good diaphragmatic excursion CARDIAC: Normal S1 and S2; no rubs, murmurs, or gallops, Rhythm: regular rate and rhythm Assessment/Plan ASA Class: ASA Class:: Patient with severe systemic disease Active Problems: Hiatal hernia POA: Unknown Assessment AND Plan: hiatal hernia/EGD Provisional Diagnosis/Treatment Plan: hiatal hernia/EGD SIGNATURE: Haven Bagley PA-C PATIENT NAME: Rodrigue Wallace DATE: April 15, 2019 TIME: 8:45 AM PAGER: [phone] [facility] NURSING PROGon 04-15-2019 NURSING PROG HNO ID: [id number] Author: Lita (Rn) LAURA Wasserman Service: Nursing Author Type: Registered Nurse Type: Nursing Progress Note Filed: 04/15/2019 8:15 AM Note Text: PRE OP LEARNING ASSESSMENT PROCEDURE/SURGERY: EGD READINESS TO LEARN COGNITIVE ABILITY: Alert and oriented MOTIVATION TO LEARN: Eager FAMILY SUPPORT: None - Unavailable/disintereste d PATIENT LEARNS BEST BY: Individual Instruction FACTORS AFFECTING LEARNING: None PHYSICAL LIMITATIONS AFFECTING LEARNING: None [facility] PT EDon 04-15-2019 PT ED HNO ID: [id number] Author: Priya (Rn) LAURA Bateman Service: Nursing Author Type: Registered Nurse Type: Patient Education Filed: 04/15/2019 9:17 AM Note Text: POST OP LEARNING RESPONSE INSTRUCTION PROVIDED TO: Patient and family member METHOD OF INSTRUCTION: Written instruction - handouts Verbal instruction PATIENT / FAMILY RESPONSE: Verbalizes understanding of: POST-PROCEDURE INSTRUCTIONS-Correct actions to take to reduce post procedure complications FOLLOW-UP PLAN: Follow up phone call. SUPPLEMENTAL MATERIAL: None REFERRAL (RECOMMENDATION): None Electronically Signed By: Priya Bateman RN In Department: PROCEDURES [facility] ALLIED HEALTH 03-12-2019 ALLIED HEALTH HNO ID: [id number] Author: Darcie BeachRtJess Salgado Service: Radiology Author Type: Pick Pack Worker Type: Allied Health Filed: 03/12/2019 7:59 AM Note Text: Radiology Service Progress Note PATIENT NAME: Rodrigue Wallace DATE OF SERVICE: March 12, 2019 TIME: 7:59 AM PATIENT IDENTITY VERIFICATION COMPLETED USING TWO (2) METHODS: Patient confirmed name verbally and ID band matches.. PATIENT GENDER DATA: Female. status: : No status: N/A PATIENT RELEVANT IMPLANT DATA REVIEWED: Not Applicable RADIOLOGY DEPARTMENT: General X-ray: Exam(s) Completed: GI/ Procedure(s): Upper GI with barium contrast PERIPHERAL IV DATA: Not applicable SIGNED BY: RT Tomás March 12, 2019 7:59 AM [facility] XR UPPER GI DOUBLE CONTRAST/ AIRon 03-12-2019 XR UPPER GI DOUBLE CONTRAST/AIR * * *Final Report* * * DATE OF EXAM: Mar 12 2019 7:58AM [id number] - XR UPPER GI DOUBLE CONTRAST/AIR / PROCEDURE REASON: Hiatal hernia * * * * Physician Interpretation * * * * DOUBLE CONTRAST UPPER GI SERIES: CLINICAL INFORMATION: Hiatal hernia TECHNIQUE: Double contrast upper GI was performed. Fluoroscopic Radiation Summary: Plane A, Air Kerma: 59.1 mGy Plane B, Air Kerma: 0.0 mGy Dose Area Product (DAP): 0.0 mGy*cmS2 Fluoro time: 1:30 min:sec RESULT: There is normal primary esophageal peristalsis with some tertiary waves. There are no mucosal lesions identified. There is a moderate size hiatal hernia. The patient had reflux to the level of the marlin clavicles. The patient describes associated fullness. The patient had limited ability to tolerate the effervescent granules. The stomach demonstrates no focal lesions. The duodenal bulb demonstrates no ulceration. There is a descending duodenal diverticulum. The ligament of Treitz is in its anatomic position. The visualized small bowel appears unremarkable. IMPRESSION: Moderate size hiatal hernia and gastroesophageal reflux. Automotive Service Director: [facility] Transcribe Date/Time: Mar 12 2019 8:31A Dictated by : SHIRLEY LOPEZ MD This examination was interpreted and the report reviewed and electronically signed by: SHIRLEY LOPEZ MD on Mar 12 2019 8:34AM EST [id number] Normal [facility] GASTRIC EMPTYING SOLIDon 03-10-2019 [place] GASTRIC EMPTYING SOLID * * *Final Report* * * DATE OF EXAM: Mar 10 2019 10:55AM [facility] 0017 - [place] GASTRIC EMPTYING SOLID / PROCEDURE REASON: Dyspepsia * * * * Physician Interpretation * * * * SOLID MEAL GASTRIC EMPTYING STUDY: CLINICAL HISTORY: Dyspepsia, GERD To assess for abnormal gastric emptying of a solid meal. TECHNIQUE: 1 mCi Tc-99m sulfur colloid was given orally in a meal consisting of 4 oz Egg Beaters, 2 pieces toast, and 8 oz water, consumed over 5 to 10 minutes. 1-minute posterior and anterior spot images of the stomach region at times 0, 1, 2, hours RESULT: Solid study demonstrates 55% retention at 1hr, 3% retention at 2hr, (normal emptying is 37-90% retention at 1hr, 30-60% retention at 2hr, and 0-10% retention at 4hr). There is no evidence of accelerated emptying of gastric contents, with 55% retention at 1hr (rapid emptying is <30% retention at 1hr). IMPRESSION: EVIDENCE OF NORMAL RATE OF GASTRIC EMPTYING OF SOLID MEAL. Automotive Service Director: [facility] Transcribe Date/Time: Mar 10 2019 11:39A Dictated by : KIMBERLY BILLS MD This examination was interpreted and the report reviewed and electronically signed by: KIMBERLY BILLS MD on Mar 10 2019 11:43AM EST [id number] [facility] PROGRESSon 03-10-2019 PROGRESS HNO ID: [id number] Author: Jess Sagastume (Rt) Service: Radiology Author Type: Pick Pack Worker Type: Progress Notes Filed: 03/10/2019 8:45 AM Note Text: RADIOLOGY SERVICE PROGRESS NOTE SERVICE DATE: 03/10/2019 SERVICE TIME: 7:59 AM PATIENT IDENTITY VERIFICATION COMPLETED USING TWO (2) METHODS: Patient confirmed name and Date of verbally. PATIENT GENDER DATA: .female : No status: No ALLERGIES: Reviewed and unchanged MEDICATIONS REVIEWED: Yes PATIENT RELEVANT IMPLANT DATA REVIEWED: Not Applicable CREATININE: Creatinine Date Value Ref Range Status 03/17/2018 0.54 (L) 0.58 - 0.96 mg/dL Final 12/08/2017 0.53 (L) 0.58 - 0.96 mg/dL Final 08/29/2017 0.59 0.58 - 0.96 mg/dL Final eGFR-All Other Races Date Value Ref Range Status 03/17/2018 >60 . Final Comment: eGFR (Estimated GFR) Units of measure: mL/min/1.73 meters squared eGFR is derived from the reexpressed MDRD Study equation using the following parameters: serum creatinine, age, gender and race. The creatinine assay has been calibrated to be traceable to IDMS. An eGFR <60 mL/min/1.73m2 for >3 months is consistent with chronic kidney disease. Refer to KDOQI guidelines for clinical interpretation. In patients with unstable renal function, e.g. those with acute kidney injury, the eGFR may not accurately reflect actual GFR. eGFR- Date Value Ref Range Status 03/17/2018 >60 Final P.O.C.T. RESULTS: N/A March 10, [address] PERFORMED: No IV SITE: NM only - not applicable, oral or physician administered agents given to patient POST EXAM PIV STATUS: Not applicable PROCEDURE TYPE: NM GET: 1 mCi Tc99m SULFUR COLLOID was administered orally via 4 ounces of Egg Beaters,2 pieces of toast (sandwich) no jelly with 8 ounces of water orally ADMINISTRATION TIME: 08:28 PATIENT DISCHARGED TO: Ambulatory patient, left [place] department area. A Diagnostic radioactive procedure has taken place, with no further precautions necessary other than routine body substance precautions. More information regarding radiation safety can be found using this link: [email or web address] SIGNATURE: RT Tanika (N0, [employer] PRESS OPERATOR PATIENT NAME: Rodrigue Wallace DATE: March 10, 2019 TIME: 7:59 AM PAGER/CONTACT #: [facility] HOSPon 03-03-2019 HOSP Patient:Nubia Wallace MRN: Height:5' 3 (1.6 m) Weight:No patient weight recorded within the last 30 days. Outpatient Medications as of 04/15/19: NOVOLOG U-100 INSULIN ASPART 100 unit/mL soln PROLIA 60 mg/mL syrg [employer] ULTRA TEST test strip ezetimibe (ZETIA) 10 mg tablet Subcutaneous Insulin Pump (PARADIGM INSULIN PUMP) misc glucagon, human recombinant, (GLUCAGON EMERGENCY KIT, HUMAN,) 1 mg injection lisinopril (PRINIVIL) 10 mg tablet cholecalciferol (VITAMIN D3) 1,000 unit tab esomeprazole (NEXIUM) 40 mg capsule tiZANidine (ZANAFLEX) 4 mg tablet Glucosamine-Chondroitin (OSTEO BI-FLEX) 250-200 mg tab HYDROcodone-acetaminophe n (NORCO) 5-325 mg per tablet sertraline (ZOLOFT) 50 mg tablet mometasone (NASONEX) 50 mcg/actuation nasal spray COMPOUNDED PRESCRIPTION dextrose (GLUCOSE GEL) 40 % gel celecoxib (CELEBREX) 200 mg ORAL capsule calcium citrate-vitamin D3 (CITRACAL + D) 315-200 mg-unit ORAL Tab lancets(ONE TOUCH ULTRASOFT LANCETS) multivitamin with minerals (ONE DAILY COMPLETE) ORAL Tab Aspirin 81 mg ORAL Tab Admission/Clinic Administered Medications as of 04/15/19: NaCl 0.9% iv infusion Problem List: Pure hypercholesterolemia [E78.00] Mechanical complication due to breast prosthesis [T85.49XA] Unspecified vitamin D deficiency [E55.9] Goiter [E04.9] TMJ disorder [] Hypercalcemia [E83.52] Arthritis [M19.90] Primary osteoarthritis of first carpometacarpal joint of left hand [M18.12] Localized superficial swelling, mass, or lump [R22.9] 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] Spinal stenosis in cervical region [M48.02] Complex regional pain syndrome type 1 of right upper extremity [G90.511] Insulin pump status [Z96.41] Uncontrolled type 1 diabetes mellitus without complication, with long-term current use of insulin (HCC) [E10.65] Bronchitis [J40] 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 Dr. Cristobal is requesting pre procedure Diabetes medication recommendations. Please advise and route message to: Adrian MILLER COREsther/[facility] NURSE [id number] Anju Lyman MA, MA 04/01/2019 1:09 PM Signed EGD PREP INSTRUCTIONS 1 WEEK PRIOR TO PROCEDURE: *Please contact our office if you are diabetic, or you take any blood thinners. (ie. Plavix, Coumadin, Xarelto, Pradaxa, Eliquis) DAY BEFORE PROCEDURE: *You should receive a call from the [facility] with your arrival time between 12pm - 3pm. *If your arrival time is before noon, then NO SOLID FOODS OR LIQUIDS after midnight. *If your arrival time is afternoon, you may continue a clear liquid diet up to 3 hours prior to your arrival time. PROCEDURE DAY: *Make sure you have a responsible courier delivery driver to bring you and take you home from the procedure. *Bring your Photo ID and Insurance Cards with you. If you have any questions or problems, please call our office at [phone] and ask for GI Prep Line. Miranda Powell APRN.COMPUTER OPERATIONS MANAGER 04/01/2019 1:33 PM Signed She should lower her temporary basal setting at bedtime to 70%. Temp basal time should start at bedtime and go through her procedure until she is alert again. (normally diabetics are scheduled first thing in morning, I would allow at least 2-3 hours after appt time for the temporary basal setting time. Anju Lyman MA, MA 04/02/2019 11:34 AM Signed Noted Anju Lyman MA, MA 04/05/2019 10:12 AM Signed Spoke with pt and advised of message below. Pt verbalized understanding. Pt had no further questions or concerns. Progress Notes ([facility] REJ): Elvia Jolly Pss 03/29/2019 12:35 PM Signed Patient called stating that she needs the records of her colonoscopy and her EGD from 06/30/17 sent to her Primary Care Doctor. Dr. Howard Snatiago She would like to have this faxed over. She said she contacted the medical records and gave the ok to give this sent to her PCP but it wasn't sent yet. She can be reached at [phone]. Please advise. Sabino Grace LPN 03/29/2019 1:45 PM Signed Procedures AND biopsies faxed with confirmation Pt is aware [facility] Coding Summary.on 08-21-2018 Coding Summary. 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 However, the narrative phrase printed from the coding software may appear abbreviated, or result in slightly different terminology. Coded By: Makayla Brambila CphT Date Saved: 08/21/2018 10:12 am Normal [facility] XR Shoulder Complete Righton 08-20-2018 XR Shoulder Complete Right Exam Date/Time:08/20/2018 12:22 ESTReason for Exam:M19.211ReportIMPRES STEPHEN: NO FRACTURE/DISLOCATION.MIL D ACROMIOCLAVICULAR ARTHROSIS.CLINICAL HISTORY: M19.211, right shoulder pain for several months.COMPARISONS: NONEFINDINGS: X-RAY: RIGHT SHOULDER, 5 VIEWS. No sign of fracture, dislocation orosseous destruction. The acromiohumeral distance is well maintained. There is mildmarginal spurring of the acromioclavicular joint, indicating degenerative changes. FINAL REPORT Dictated: 08/20/2018 5:39 pm Leslie Kirk MD Signed (Electronic Signature): 08/20/2018 5:39 pm Signed by: Leslie Kirk MD Transcribed by: GOKUL Technologist: DAMARIS Romo [facility] Cardiovascular Lab Reporton 06-26-2018 Cardiovascular Lab Report [facility] Patient Name: [facility] Rodrigue MR #: [id number] of Physician: Dejuan Lauren M.BharatDivision of Service Date: 06/25/2018Cardiology Birthdate: [birth year]Adult Cardiovascular Room #: [facility] [place], [place] [address] Fax Cardiovascular Laboratory ReportFINAL IMPRESSIONS:1. Angiographically nonobstructive coronary arteries.2. Normal global left ventricular systolic function by noninvasive imaging.3. Moderately elevated right-sided heart pressures and mildly elevated pulmonary capillary wedge pressure.4. Normal transpulmonary gradient, along with the elevated filling pressures would suggest post capillary or pulmonary venous hypertension.5. Moderate systemic hypertension.6. Normal cardiac output/cardiac index.RECOMMENDATIONS:1. Aggressive cardiovascular risk factor modification.2. Optimization of medical management; will add Lasix 20 mg daily and obtain a basic metabolic panel in a week.3. Consider alternate etiologies for the patient's shortness of breath and chest pain as clinically appropriate, such as pulmonary.4. Follow up with me in the [facility] in the next 3 to 4 weeks.5. Follow up with Dr. Santiago, her family physician as scheduled.PROCEDURES: Right heart catheterization, bilateral selective coronaryangiography, limited femoral angiography, placement of a 6-Anguillan MynxGripclosure device.METHODS: After risks, benefits, and alternatives were explained, writteninformed consent was obtained. The patient was prepped and draped in theusual sterile fashion over the right groin. Using 1% lidocaine solution,local infiltration anesthesia was achieved. Using a modified Seldingertechnique, access to the right common femoral artery and vein was obtainedand 6-Anguillan 11 cm sheath was inserted in each. Baseline femoralangiography was performed.Right heart catheterization was performed using a Thornton catheter via thevenous sheath. Pressures were measured in the right atrium, rightventricle, pulmonary artery, and pulmonary capillary wedge positions.Oxygen saturations were obtained and a cardiac output/cardiac index wascalculated using the Koko principle.Bilateral selective coronary angiography was then performed using JL4 andJR4 catheters. After reviewing the images, it was elected to conclude theprocedure.A 6-Anguillan MynxGrip closure device was deployed per protocol achievingoptimal hemostasis. Overall, the patient tolerated the procedure well.There were no overt complications. [facility].FINDINGS:Hemod ynamics:1. AO 146/80.2. RA 12.3. RV 46/6, 13.4. PA 46/22 (28).5. PCWP 17.6. TPG 11.7. Cardiac output 5.7/cardiac index 3.15.LEFT VENTRICULOGRAPHY: This was not performed. Ejection fraction is 65%by noninvasive imaging.CORONARY ARTERIES:Left main coronary artery. This arises from the left coronary cusp. It kenzie short vessel that bifurcates into the left anterior descending and leftcircumflex coronary arteries. It is free of significant stenosis.Left anterior descending coronary artery. This shows no significantstenoses.Left circumflex coronary artery. This is angiographically nonobstructive.Right coronary artery. This is a dominant vessel giving rise to theposterior descending and posterolateral branches. It is of small caliberwith no significant stenosis.Limited femoral angiography shows a high bifurcation and a sheath siteappropriate for a closure device.INDICATIONS: The patient is a 68-year-old woman with multiple risk factorsfor atherosclerotic heart disease, who presented with exertional chestpressure and shortness of breath. Findings and management strategies areoutlined above.Electronically Signed by:Ayleen Hickey M.D. 07/02/2018 04:44 P Ayleen Hickey M.D.Date Dict: 06/25/2018/09:04 Yazan/Ayleen Hickey M.D.Date Trans: 06/26/2018 04:33 A/[id number] 8cc: Howard Santiago M.D. [address] [address] Normal [facility] BASIC METABOLIC PANELon 05-24 Calcium mass conc 8.6 mg/dL Normal 8.6-10.3 [facility] Comment on above: Order Comment: No: D o not add to previous draw Performed By: #### 4 6413, 02940, 59543, 09458, 12736, 91350 ####[facility] [place] [address], [place] Chloride molar conc 101 mmol/L Normal 98-107 [facility] Comment on above: Order Comment: No: D o not add to previous draw Performed By: #### 4 6413, 45242, 30104, 75802, 30729, 92667 ####[facility] [place] [address], [place] CO2 molar conc 27 mmol/L Normal 21-31 [facility] Comment on above: Order Comment: No: D o not add to previous draw Performed By: #### 4 6413, 85780, 87213, 21252, 53832, 20981 ####[facility] [place] [address], [place] Creatinine mass conc 0.51 mg/dL Low 0.60-1.20 [facility] Comment on above: Order Comment: No: D o not add to previous draw Performed By: #### 4 6413, 70439, 02996, 84661, 89962, 52159 ####[facility] [place] [address], [place] GFR/1.73 sq M predicted among blacks MDRD vol rate/area (S/P/Bld) mL/min/{1.73_m2} Normal >60 [facility] Comment on above: Order Comment: No: D o not add to previous draw Performed By: #### 4 6413, 54281, 32054, 73863, 48632, 20246 ####[facility] [place] [address], [place] GFR/1.73 sq M predicted among non-blacks MDRD vol rate/area (S/P/Bld) mL/min/{1.73_m2} Normal >60 [facility] Comment on above: Order Comment: No: D o not add to previous draw Performed By: #### 4 6413, 36496, 98055, 33459, 51462, 15208 ####[facility] [facility] [place] [address], [place] Glucose mass conc 211 mg/dL High 70-100 [facility] Comment on above: Order Comment: No: D o not add to previous draw Performed By: #### 4 6413, 22907, 46067, 16100, 59644, 76189 ####[facility] [place] [address], [place] Potassium molar conc 4.0 mmol/L Normal 3.5-5.1 [facility] Comment on above: Order Comment: No: D o not add to previous draw Performed By: #### 4 6413, 79770, 86742, 37113, 44601, 96683 ####[facility] [place] [address], [place] Sodium molar conc 135 mmol/L Low 136-145 [facility] Comment on above: Order Comment: No: D o not add to previous draw Performed By: #### 4 6413, 12693, 86209, 06147, 59975, 09047 ####[facility] [facility] Urea nitrogen mass conc 4 mg/dL Low 7-25 [facility] Comment on above: Order Comment: No: D o not add to previous draw Performed By: #### 4 6413, 59336, 52863, 48023, 07172, 09390 ####[facility] [facility] CBC COMPLETE BLOOD COUNTon 0 06-17-2018 Erythrocyte distribution width Auto Ratio (RBC) 14.7 % Normal 11.5-15.0 [facility] Comment on above: Order Comment: No: D o not add to previous draw Performed By: #### 4 6413, 65433, 68438, 21315, 97531, 57595 ####[facility] [facility] Hematocrit Auto Volume Fraction (Bld) 34.4 % Low 36.0-45.0 [facility] Comment on above: Order Comment: No: D o not add to previous draw Performed By: #### 4 6413, 82857, 60255, 69812, 98396, 17820 ####[facility] [facility] Hemoglobin mass conc (Bld) 11.0 g/dL Low 12.0-15.0 [facility] Comment on above: Order Comment: No: D o not add to previous draw Performed By: #### 4 6413, 38084, 33759, 01184, 30391, 31004 ####[facility] [place] [address], [place] MCH Auto Entitic mass (RBC) 26.3 pg Low 27.0-33.0 [facility] Comment on above: Order Comment: No: D o not add to previous draw Performed By: #### 4 6413, 81450, 64000, 06385, 88736, 20737 ####[facility] MCHC Auto mass conc (RBC) 32.0 g/dL Normal 32.0-35.0 [facility] Comment on above: Order Comment: No: D o not add to previous draw Performed By: #### 4 6413, 17285, 81533, 81676, 51597, 39729 ####[facility] MCV Auto Entitic volume (RBC) 82.3 fL Normal 82.0-98.0 [facility] Comment on above: Order Comment: No: D o not add to previous draw Performed By: #### 4 6413, 93674, 38550, 43589, 60178, 90762 ####[facility] Nucleated RBC/100 WBC Ratio (Bld) 0 % Normal 0-0 [facility] Comment on above: Order Comment: No: D o not add to previous draw Performed By: #### 4 6413, 56499, 13606, 23952, 73729, 52599 ####[facility] PLAT CNT 301 10*3/uL Normal 150-400 [facility] Comment on above: Order Comment: No: D o not add to previous draw Performed By: #### 4 6413, 14741, 80305, 34816, 21259, 40564 ####[facility] RBC Auto #/vol (Bld) 4.18 10*6/uL Normal 3.80-5.00 [facility] Comment on above: Order Comment: No: D o not add to previous draw Performed By: #### 4 6413, 47150, 23266, 43103, 74822, 83658 ####[facility] [place] [address], [place] WBC Auto #/vol (Bld) 5.45 10*3/uL Normal 4.00-10.60 [facility] Comment on above: Order Comment: No: D o not add to previous draw Performed By: #### 4 6413, 81987, 22605, 26681, 26356, 72271 ####[facility] [place] [address], [place] MAGNESIUM BLOODon 06-17-2018 Magnesium mass conc 1.6 mg/dL Low 1.9-2.7 [facility] Comment on above: Order Comment: No: D o not add to previous draw Performed By: #### 4 6413, 76950, 64188, 04154, 63765, 21763 ####[facility] [place] [address], [place] POC GLUCOSE LABon 06-17-2018 Glucose mass conc 239 mg/dL High 70-100 [facility] Comment on above: Performed By: #### 4 6413, 73745, 57699, 43004, 53070, 38137 ####[facility] [place] [address], [place] Glucose mass conc 254 mg/dL High 70-100 [facility] Comment on above: Performed By: #### 4 6413, 38770, 25375, 42106, 18382, 94544 ####[facility] [place] [address], [place] TROPONIN-Ion 06-17-2018 Troponin I.cardiac mass conc 0.00 ng/mL Normal 0.00-0.04 [facility] Comment on above: Order Comment: No: D o not add to previous draw Result Comment: REFE RENCE RANGES: 0.00 - 0.14 ng/ml NEGATIVE 0.15 - 0.25 ng/ml INDETERMINATE > 0.25 ng/ml INDICATIVE OF AN M.I. Performed By: #### 4 6413, 77943, 67626, 00188, 05959, 51075 ####[facility] BNP (B-TYPE NATRIURETIC PEPT PRAVEENA)on 06-16-2018 Natriuretic peptide B mass conc (Bld) 54 pg/mL Normal 0-100 [facility] Comment on above: Order Comment: No: D o not add to previous draw Result Comment: Give n the appropriate clinical setting a BNP result of >100 pg/mLindicates congestive heart failure. Performed By: #### 8 5123 ####[facility] CBC W/DIFFon 06-16-2018 ABS BASOPHILS 0.0 10*3/uL Normal 0.0-0.2 [facility] Comment on above: Order Comment: No: D o not add to previous draw Performed By: #### 5 0103 ####[facility] ABS IMM GRANS 0.0 10*3/uL Normal 0.0-0.2 [facility] Comment on above: Order Comment: No: D o not add to previous draw Performed By: #### 5 0103 ####[facility] ABS NEUTROPHILS 4.1 10*3/uL Normal 1.6-7.6 [facility] Comment on above: Order Comment: No: D o not add to previous draw Performed By: #### 5 0103 ####[facility] Basophils Auto #/vol (Bld) 0.1 % Normal 0.0-1.0 [facility] Comment on above: Order Comment: No: D o not add to previous draw Performed By: #### 5 0103 ####[facility] Eosinophils Auto #/vol (Bld) 0.0 10*3/uL Normal 0.0-0.5 [facility] Comment on above: Order Comment: No: D o not add to previous draw Performed By: #### 5 0103 ####[facility] [facility].[address] Eosinophils/100 WBC Auto (Bld) 0.4 % Normal 0.0-6.0 [facility] Comment on above: Order Comment: No: D o not add to previous draw Performed By: #### 5 0103 ####[address] Erythrocyte distribution width Auto Ratio (RBC) 14.5 % Normal 11.5-15.0 [facility] Comment on above: Order Comment: No: D o not add to previous draw Performed By: #### 5 0103 ####[facility] Hematocrit Auto Volume Fraction (Bld) 33.2 % Low 36.0-45.0 [facility] Comment on above: Order Comment: No: D o not add to previous draw Performed By: #### 5 0103 ####[facility] [place] [address] Hemoglobin mass conc (Bld) 10.7 g/dL Low 12.0-15.0 [facility] Comment on above: Order Comment: No: D o not add to previous draw Performed By: #### 5 0103 ####[facility] IMMATURE GRANS 0.3 % Normal 0.0-1.0 [facility] Comment on above: Order Comment: No: D o not add to previous draw Performed By: #### 5 0103 ####[facility] Lymphocytes Auto #/vol (Bld) 2.7 10*3/uL Normal 1.2-4.0 [facility] Comment on above: Order Comment: No: D o not add to previous draw Performed By: #### 5 0103 ####[facility] [place] [address] Lymphocytes/100 WBC Auto (Bld) 36.8 % Normal 20.0-45.0 [facility] Comment on above: Order Comment: No: D o not add to previous draw Performed By: #### 5 0103 ####[address] MCH Auto Entitic mass (RBC) 26.4 pg Low 27.0-33.0 [facility] Comment on above: Order Comment: No: D o not add to previous draw Performed By: #### 5 0103 ####[facility] [place] [address] MCHC Auto mass conc (RBC) 32.2 g/dL Normal 32.0-35.0 [facility] Comment on above: Order Comment: No: D o not add to previous draw Performed By: #### 5 3 ####[facility] [place] [address] MCV Auto Entitic volume (RBC) 82.0 fL Normal 82.0-98.0 [facility] Comment on above: Order Comment: No: D o not add to previous draw Performed By: #### 5 0103 ####[facility] [place] [address] Monocytes Auto #/vol (Bld) 0.5 10*3/uL Normal 0.1-1.0 [facility] Comment on above: Order Comment: No: D o not add to previous draw Performed By: #### 5 0103 ####[facility] [place] [address], [place] MONOS 6.4 % Normal 5.0-12.0 [facility] Comment on above: Order Comment: No: D o not add to previous draw Performed By: #### 5 0103 ####[facility] [place] [address], [place] Neutrophils/100 WBC Auto (Bld) 56.0 % Normal 40.0-72.0 [facility] Comment on above: Order Comment: No: D o not add to previous draw Performed By: #### 5 0103 ####[facility] [place] [address], [place] Nucleated RBC/100 WBC Ratio (Bld) 0 % Normal 0-0 [facility] Comment on above: Order Comment: No: D o not add to previous draw Performed By: #### 5 0103 ####[facility] [place] [address], [place] PLAT CNT 293 10*3/uL Normal 150-400 [facility] Comment on above: Order Comment: No: D o not add to previous draw Performed By: #### 5 0103 ####[facility] [place] [address], [place] RBC Auto #/vol (Bld) 4.05 10*6/uL Normal 3.80-5.00 [facility] Comment on above: Order Comment: No: D o not add to previous draw Performed By: #### 5 0103 ####[facility] [address], [place] WBC Auto #/vol (Bld) 7.30 10*3/uL Normal 4.00-10.60 [facility] Comment on above: Order Comment: No: D o not add to previous draw Performed By: #### 5 0103 ####[facility] [place] [address], [place] COMP METABOLIC PANELon 06-16 Albumin mass conc 3.7 g/dL Normal 3.5-5.7 [facility] Comment on above: Order Comment: No: D o not add to previous draw Performed By: #### 4 6413, 92957, 07585, 50125, 50995, 06036 ####[facility] [facility] [place] [address], [place] ALKALINE PHOSPH 39 IU/L Normal 34-104 [facility] Comment on above: Order Comment: No: D o not add to previous draw Performed By: #### 4 6413, 94171, 84763, 13030, 58903, 21995 ####[facility] [facility] [place] [address], [place] ALT enzyme act/vol 6 U/L Low 7-52 [facility] Comment on above: Order Comment: No: D o not add to previous draw Performed By: #### 4 6413, 90473, 95412, 63387, 69463, 44474 ####[facility] [facility] AST enzyme act/vol 12 U/L Low 13-39 [facility] Comment on above: Order Comment: No: D o not add to previous draw Performed By: #### 4 6413, 26580, 68451, 07533, 77569, 18993 ####[facility] [place] [address], [place] Bilirubin mass conc 0.4 mg/dL Normal 0.3-1.0 [facility] Comment on above: Order Comment: No: D o not add to previous draw Performed By: #### 4 6413, 45612, 26833, 86177, 55228, 85644 ####[facility] [place] [address], [place] Calcium mass conc 9.1 mg/dL Normal 8.6-10.3 [facility] Comment on above: Order Comment: No: D o not add to previous draw Performed By: #### 4 6413, 54526, 41350, 05418, 06509, 05199 ####[facility] [place] [address], [place] Chloride molar conc 96 mmol/L Low 98-107 [facility] Comment on above: Order Comment: No: D o not add to previous draw Performed By: #### 4 6413, 78362, 50928, 75494, 20519, 92448 ####[facility] [place] [address], [place] CO2 molar conc 23 mmol/L Normal 21-31 [facility] Comment on above: Order Comment: No: D o not add to previous draw Performed By: #### 4 6413, 35265, 76611, 05289, 64575, 44993 ####[facility] [place] [address], [place] Creatinine mass conc 0.50 mg/dL Low 0.60-1.20 [facility] Comment on above: Order Comment: No: D o not add to previous draw Performed By: #### 4 6413, 31730, 35508, 23000, 55077, 52031 ####[facility] [place] [address], [place] GFR/1.73 sq M predicted among blacks MDRD vol rate/area (S/P/Bld) mL/min/{1.73_m2} Normal >60 [facility] Comment on above: Order Comment: No: D o not add to previous draw Performed By: #### 4 6413, 89342, 58912, 23579, 98490, 62907 ####[facility] [place] [address], [place] GFR/1.73 sq M predicted among non-blacks MDRD vol rate/area (S/P/Bld) mL/min/{1.73_m2} Normal >60 [facility] Comment on above: Order Comment: No: D o not add to previous draw Performed By: #### 4 6413, 36896, 70442, 81486, 16017, 48069 ####[facility] [place] [address], [place] Glucose mass conc 269 mg/dL High 70-100 [facility] Comment on above: Order Comment: No: D o not add to previous draw Performed By: #### 4 6413, 79570, 17528, 70570, 41796, 03129 ####[facility] [place] [address], [place] Potassium molar conc 3.8 mmol/L Normal 3.5-5.1 [facility] Comment on above: Order Comment: No: D o not add to previous draw Performed By: #### 4 6413, 17554, 77998, 16865, 46711, 82844 ####[facility] [place] [address], [place] Protein mass conc 6.4 g/dL Normal 6.0-8.3 [facility] Comment on above: Order Comment: No: D o not add to previous draw Performed By: #### 4 6413, 92320, 04034, 22145, 73748, 13430 ####[facility] [place] [address], [place] Sodium molar conc 130 mmol/L Low 136-145 [facility] Comment on above: Order Comment: No: D o not add to previous draw Performed By: #### 4 6413, 05975, 08893, 23052, 58202, 82443 ####[facility] [place] [address], [place] Urea nitrogen mass conc 5 mg/dL Low 7-25 [facility] Comment on above: Order Comment: No: D o not add to previous draw Performed By: #### 4 6413, 70071, 78648, 43065, 45101, 86994 ####[facility] History and Physicalon 06-16 History and Physical MR[id number] Rodrigue [facility] Admitted: 06/15/2018 Date of : 1950 Attending Physician: Nilda Walls M.D. Room #: 3CD 113171 Discharge Date: HISTORY AND PHYSICALThe patient was seen by me on June 15, 2018.CHIEF COMPLAINT: Hypertensive urgency.HISTORY OF PRESENT ILLNESS: The patient is a 68-year-old female with apast medical history of hypertension and diabetes who presented [facility] from [facility]. From the history, we know that the patient wasseen yesterday by her chick sexer there and had high blood pressure in theoffice at 230/120. The patient saw Cardiology because for the last fewweeks she has been having progressive exertional dyspnea and intermittentchest pressure that was consistent with angina. She does not have ahistory of coronary artery disease, but has risk factors for it. Shelley had his 1st stent placed at the age of 54. The patient is also aformer smoker and has diabetes. The patient had echo today and it cameback with a normal ejection fraction. When her blood pressure waselevated, she denied that she was having any symptoms. No headaches. Noblurry vision. No chest pain. No increased shortness of breath. Noneurological deficits. She was sent to ER and in the ER, she had someworkup done, which came back negative. She was transferred to the [facility].The patient's chick sexer planned to do cardiac cath on her in 3 days hereat [facility] anyway. When I was examining her, the patient denied any chestpain. No increased shortness of breath. No headaches. No blurry vision.No lightheadedness. The patient had mild nausea, but no vomiting and noabdominal pain. No constipation or diarrhea. No dysuria. No skin rash.No fevers. No numbness or weakness in her extremities. No dysarthria.MEDICATIONS: See the list.ALLERGIES: Penicillin.PAST SURGERIES: Left thumb joint replacement, right shoulder surgery,meniscus repair in the right knee, hysterectomy, lumbar disk arthroplastyusing anterior approach.PAST MEDICAL HISTORY: Hypertension, insulin-dependent diabetes, thepatient is on insulin pump, chronic low back pain, osteoporosis,hyperlipide ruthann, neuropathy and depression.SOCIAL HISTORY: The patient is a former smoker. She quit smoking in 2002.She drinks alcohol occasionally. Denies drug use. She is retired andlives with her .FAMILY HISTORY: Positive for premature coronary artery disease.REVIEW OF SYSTEMS: Review of systems was done and was otherwise negativeexcept pertinent positive findings mentioned in HPI.PHYSICAL EXAMINATION: VITAL SIGNS: Blood pressure 151/59, heart rate 69,respirations 14, temperature 98.6, oxygen saturation 99%.GENERAL: The patient is alert, oriented x3, in no apparent distress.EYES: No conjunctival erythema.EARS: Hearing is normal bilaterally.MOUTH: Moist oral mucosa.NECK: Supple.RESPIRATORY: Clear to auscultation bilaterally at the bases. Good airentry. No wheezing, rhonchi, or crackles.CARDIOVASCULAR: Regular rate and rhythm. S1 and S2. No gallops. Thepatient has a soft 3/6 systolic murmur.ABDOMEN: Soft, nondistended, nontender. No rigidity. No rebound.EXTREMITIES: No pedal edema. No calf tenderness.SKIN: Warm, dry to touch. No rash.NEUROLOGIC: No sensory or motor deficits. Alert, oriented x3.PSYCHIATRIC: Normal affect and mood.LABORATORY DATA: Labs that were done at the [facility] shows white bloodcell 7.6, hemoglobin 11.5, hematocrit 35.1, platelets 308. Sodium 132,potassium 4.3, chloride 97, CO2 29, BUN 7, creatinine 0.66, glucose 198.CK 71, CK-MB 0.73. Troponin negative. Myoglobin 17. EKG showed normalsinus rhythm with normal EKG.ASSESSMENT: Hypertensive urgency, angina, hypertension, anemia, mildhyponatremia, insulin-dependent diabetes; the patient is using insulinpump, chronic low back pain, osteoporosis, hyperlipidemia, neuropathy,depression, ex-smoker.PLAN: The patient is admitted to step-down.1. For hypertensive urgency, we will use medication to decrease blood pressure. The patient's heart rate is on the low side, so we most likely will use hydralazine if needed and we will resume patient's home medications.2. Angina. We will check troponins. We will order EKG in the morning and consult Cardiology. The patient will be kept n.p.o. in case they will plan to do cardiac cath tomorrow.3. We will order Endocrinology consult to manage insulin pump. We will check blood sugar every 4 hours and the patient will be n.p.o. and then before meals and at bedtime when patient's diet will be restarted and cover with sliding scale if needed.4. We will provide GI and DVT prophylaxis.5. We will order labs including lipid panel.6. We will resume patient's home medications.Electronical ly Signed by:Nilda Walls M.D. 06/17/2018 03:17 P Nilda Walls M.D.Date Dict: 06/16/2018/12:19 Yazan/Nilda Walls M.D.Date Trans: 06/16/2018 05:38 [id number] Normal [facility] LIPID PROFILEon 06-16-2018 Cholesterol in HDL mass conc 78 mg/dL Normal 23-92 [facility] Comment on above: Order Comment: No: D o not add to previous draw Result Comment: Slig ht variation in normal range could be due to gender and/or age.HDL CHOLESTEROL REFERENCE RANGE:20 years and older Cardiovascular Risk> or =60 mg/dL [id number] TO 59 mg/dL Low Risk<40 mg/dL High Risk Performed By: #### 4 6413, 86063, 73313, 37384, 74652, 49380 ####[facility] Cholesterol in LDL mass conc 71 mg/dL Normal 0-130 [facility] Comment on above: Order Comment: No: D o not add to previous draw Result Comment: LDL IS A CALCULATIONLDL IS ONLY VALID IF THE TRIG IS LESS THAN 400. Performed By: #### 4 6413, 19924, 37489, 35855, 87375, 06592 ####[facility] [place] [address], [place] Cholesterol mass conc 167 mg/dL Normal 120-200 [facility] Comment on above: Order Comment: No: D o not add to previous draw Result Comment: CHOL ESTEROL REFERENCE RANGE:20 YEARS AND OLDER CARDIOVASCULAR RISKLess than 200 mg/dl Low [id number] to 239 mg/dl Borderline Bnmr144 mg/dl and greater High Risk Performed By: #### 4 6413, 98032, 02916, 99200, 31080, 53587 ####[facility] [facility] [place] [address], [place] Cholesterol.total/ Cholesterol in HDL mass ratio 2.1 {ratio} Normal .0-4.5 [facility] Comment on above: Order Comment: No: D o not add to previous draw Performed By: #### 4 6413, 25155, 42247, 13009, 57627, 59614 ####[facility] [facility] [place] [address], [place] NON-HDL CHOLESTEROL 89 mg/dL Normal [facility] Comment on above: Order Comment: No: D o not add to previous draw Performed By: #### 4 6413, 09240, 08322, 64474, 98278, 99873 ####[facility] [facility] [place] [address], [place] Triglyceride mass conc 89 mg/dL Normal 40-149 [facility] Comment on above: Order Comment: No: D o not add to previous draw Result Comment: TRIG LYCERIDE REFERENCE RANGE:20 YEARS AND OLDER CARDIOVASCULAR RISKLESS THAN 150 mg/dl LOW [id number] TO 199 mg/dl BORDERLINE [id number] mg/dl AND GREATER HIGH RISK Performed By: #### 4 6413, 68686, 16532, 82173, 88292, 53759 ####[facility] [place] [address], [place] VLDL CHOL 18 mg/dL Normal 0-40 [facility] Comment on above: Order Comment: No: D o not add to previous draw Performed By: #### 4 6413, 28724, 79328, 13281, 78032, 86691 ####[facility] [place] [address], [place] MAGNESIUM BLOODon 06-16-2018 Magnesium mass conc 1.6 mg/dL Low 1.9-2.7 [facility] Comment on above: Order Comment: No: D o not add to previous draw Performed By: #### 4 6413, 36059, 35914, 58599, 53581, 24996 ####[facility] [place] [address], [place] PHOSPHORUS BLOODon 8 Phosphate mass conc 3.0 mg/dL Normal 2.5-5.0 [facility] Comment on above: Order Comment: No: D o not add to previous draw Performed By: #### 4 6413, 82230, 31891, 90703, 19592, 25247 ####[facility] [place] [address], [place] POC GLUCOSE LABon 06-16-2018 Glucose mass conc 224 mg/dL High 70-100 [facility] Comment on above: Performed By: #### 4 6413, 35046, 52029, 23964, 97196, 50718 ####[facility] [place] [address], [place] Glucose mass conc 191 mg/dL High 70-100 [facility] Comment on above: Performed By: #### 4 6413, 54812, 47265, 62738, 64926, 82939 ####[facility] [place] [address], [place] Glucose mass conc 225 mg/dL High 70-100 [facility] Comment on above: Performed By: #### 4 6413, 14375, 88002, 58591, 07839, 43121 ####[facility] [facility] [place] [address], [place] Glucose mass conc 118 mg/dL High 70-100 [facility] Comment on above: Performed By: #### 4 6413, 50697, 20248, 47706, 92379, 66231 ####[facility] [facility] [place] [address], [place] TROPONIN-Ion 06-16-2018 Troponin I.cardiac mass conc 0.00 ng/mL Normal 0.00-0.04 [facility] Comment on above: Order Comment: No: D o not add to previous draw Result Comment: REFE RENCE RANGES: 0.00 - 0.14 ng/ml NEGATIVE 0.15 - 0.25 ng/ml INDETERMINATE > 0.25 ng/ml INDICATIVE OF AN M.I. Performed By: #### 4 6413, 18075, 45191, 15937, 77536, 93103 ####[facility] [place] [address], [place] Troponin I.cardiac mass conc 0.00 ng/mL Normal 0.00-0.04 [facility] Comment on above: Order Comment: No: D o not add to previous draw Result Comment: REFE RENCE RANGES: 0.00 - 0.14 ng/ml NEGATIVE 0.15 - 0.25 ng/ml INDETERMINATE > 0.25 ng/ml INDICATIVE OF AN M.I. Performed By: #### 3 5200 ####[facility] [place] [address], [place] Troponin I.cardiac mass conc 0.00 ng/mL Normal 0.00-0.04 [facility] Comment on above: Order Comment: No: D o not add to previous draw Result Comment: REFE RENCE RANGES: 0.00 - 0.14 ng/ml NEGATIVE 0.15 - 0.25 ng/ml INDETERMINATE > 0.25 ng/ml INDICATIVE OF AN M.I. Performed By: #### 4 6413, 63178, 82604, 43941, 14309, 09058 ####[facility] [facility].[address] TSH3on 06-16-2018 TSH 3RD GENERATION 0.79 uIU/mL Normal 0.34-5.60 [facility] Comment on above: Order Comment: No: D o not add to previous draw Performed By: #### 4 6413, 26145, 93046, 78877, 64592, 40874 ####[facility] [facility].[address] URINALYSIS REFLEXon 06-16-20 18 APPEARANCE CLEAR Normal CLEAR [facility] Comment on above: Order Comment: No: D o not add to previous drawCriteria for reflexing a culture was not met. Please call the lab [id number] within 24 hours of collection time if culture is needed Performed By: #### 3 0965 ####[place] [address] [facility].[address] BILIRUBIN Negative Normal NEGATIVE [facility] Comment on above: Order Comment: No: D o not add to previous drawCriteria for reflexing a culture was not met. Please call the lab [id number] within 24 hours of collection time if culture is needed Performed By: #### 3 0965 ####[facility] [facility].[address] BLOOD Negative Normal NEGATIVE [facility] Comment on above: Order Comment: No: D o not add to previous drawCriteria for reflexing a culture was not met. Please call the lab [email or web address] within 24 hours of collection time if culture is needed Performed By: #### 3 0965 ####[facility] [facility] [place] [address], [place] COLOR STRAW Abnormal YELLOW [facility] Comment on above: Order Comment: No: D o not add to previous drawCriteria for reflexing a culture was not met. Please call the lab [id number] within 24 hours of collection time if culture is needed Performed By: #### 3 0965 ####[facility] [place] [address], [place] GLUCOSE 150 mg/dL Abnormal NEGATIVE [facility] Comment on above: Order Comment: No: D o not add to previous drawCriteria for reflexing a culture was not met. Please call the lab [id number] within 24 hours of collection time if culture is needed Performed By: #### 3 0965 ####[facility] [place] [address], [place] KETONE TRACE Abnormal NEGATIVE [facility] Comment on above: Order Comment: No: D o not add to previous drawCriteria for reflexing a culture was not met. Please call the lab [email or web address] within 24 hours of collection time if culture is needed Performed By: #### 3 0965 ####[facility] [place] [place] [address], [place] LEUK LINDA Negative Normal NEGATIVE [facility] Comment on above: Order Comment: No: D o not add to previous drawCriteria for reflexing a culture was not met. Please call the lab [email or web address] within 24 hours of collection time if culture is needed Performed By: #### 3 0965 ####[facility] [facility] [place] [address], [place] MICRO NOT DONE negative chemical reactions unless requested in original order Normal [facility] Comment on above: Order Comment: No: D o not add to previous drawCriteria for reflexing a culture was not met. Please call the lab [email or web address] within 24 hours of collection time if culture is needed Performed By: #### 3 0965 ####[facility] [facility] [place] [address], [place] NITRITE Negative Normal NEGATIVE [facility] Comment on above: Order Comment: No: D o not add to previous drawCriteria for reflexing a culture was not met. Please call the lab [id number] within 24 hours of collection time if culture is needed Performed By: #### 3 0965 ####[facility] PH 7.0 Normal 5.0-8.0 [facility] Comment on above: Order Comment: No: D o not add to previous drawCriteria for reflexing a culture was not met. Please call the lab [id number] within 24 hours of collection time if culture is needed Performed By: #### 3 0965 ####[facility] Protein mass conc Negative Normal NEGATIVE [facility] Comment on above: Order Comment: No: D o not add to previous drawCriteria for reflexing a culture was not met. Please call the lab [id number] within 24 hours of collection time if culture is needed Performed By: #### 3 0965 ####[facility] SPEC GRAV 1.004 Low 1.015-1.020 [facility] Comment on above: Order Comment: No: D o not add to previous drawCriteria for reflexing a culture was not met. Please call the lab [id number] within 24 hours of collection time if culture is needed Performed By: #### 3 0965 ####[address] Social History Date Type Detail Facility Start: 10-13-2023 Alcohol intake Lifetime non-drinker (finding) [facility] Start: 04-30-2023 End: 01-19-2024 Humiliation, Afraid, Rape, and Kick questionnaire [HARK] [facility] Start: 02-13-2023 Tobacco smoking status NHIS Never smoked tobacco [facility] Start: 01-24-2023 Alcohol Comment Caffeine: Coffee, Intake: 2-3 cups per day [facility] Start: 01-01-2022 End: 01-19-2024 Alcohol intake Current drinker of alcohol (finding) [facility] Start: 12-22-2021 End: 01-01-2022 Exposure to SARS-CoV-2 (event) Not sure [facility] Start: 09-17-2021 Gender identity Identifies as female gender (finding) [facility] Start: 09-17-2021 Sexual orientation Heterosexual (finding) [facility] Start: 07-29-2011 Tobacco smoking status NHIS Ex-smoker [facility] Start: 07-29-2011 End: 01-19-2024 Cigarettes smoked current (pack per day) - Reported 1 [facility] Start: 07-29-2011 End: 02-13-2023 Tobacco use and exposure Smokeless tobacco non-user [facility] Work Phone: Start: 1950 Sex Assigned At Female [facility] Start: 1950 Sex Assigned At Not on file [facility] End: 09-22-2002 History of tobacco use Current smoker [facility] End: 09-22-2002 History of tobacco use Cigarette Smoker [facility] Within the last year , have you been afraid of your partner or ex-partner? No [facility] Do you belong to any clubs or organizations such as bahai groups, [employer], [employer] or athletic groups, or school groups? Yes [facility] Are you now , , , , never or living with a partner? [facility] How often to you hav e a drink containing alcohol? Never [facility] How many standard dr inks containing alcohol do you have on a typical day? Patient does not drink [facility] Do you feel stress - tense, restless, nervous, or anxious, or unable to sleep at night because your mind is troubled all the time - these days [OSQ] To some extent [facility] (I/We) worried wheth er (my/our) food would run out before (I/we) got money to buy more. Never true [facility] Vital Signs Date Time Vital Sign Value Performing Clinician Faci lity 01-19-2024 10:37-0400 Body height 160 cm Amparo Martinez APRN.CNP Work Phone: [facility] 01-19-2024 10:37-0400 Body mass index (BMI) [Ratio] 25.86 kg/m2 Amparo Martinez APRN.CNP Work Phone: [facility] 01-19-2024 10:37-0400 Body weight 66.22 kg Amparo Martinez APRN.CNP Work Phone: [facility] 01-19-2024 10:37-0400 Diastolic blood pressure 74 mm[Hg] Amparo Martinez FAMILY MEDIATOR.COMPUTER OPERATIONS MANAGER Work Phone: [facility] 01-19-2024 10:37-0400 Heart rate 75 /min Amparo Martinez FAMILY MEDIATOR.COMPUTER OPERATIONS MANAGER Work Phone: [facility] 01-19-2024 10:37-0400 Systolic blood pressure 129 mm[Hg] Amparo Martinez FAMILY MEDIATOR.COMPUTER OPERATIONS MANAGER Work Phone: [facility] 04-26-2022 09:46-0400 Body height 160 cm Araceli Nathan FAMILY MEDIATOR.COMPUTER OPERATIONS MANAGER Work Phone: [facility] 04-26-2022 09:46-0400 Body weight 72.12 kg Araceli Nathan FAMILY MEDIATOR.COMPUTER OPERATIONS MANAGER Work Phone: [facility] 04-26-2022 09:46-0400 Diastolic blood pressure 84 mm[Hg] Araceli Nathan FAMILY MEDIATOR.COMPUTER OPERATIONS MANAGER Work Phone: [facility] 04-26-2022 09:46-0400 Heart rate 74 /min Araceli Nathan FAMILY MEDIATOR.COMPUTER OPERATIONS MANAGER Work Phone: [facility] 04-26-2022 09:46-0400 Systolic blood pressure 126 mm[Hg] Araceli Nathan FAMILY MEDIATOR.COMPUTER OPERATIONS MANAGER Work Phone: [facility] Clinical Notes 12-18-2009 to 01-19-2024 Amparo Martinez APRN.CNP - 01/19/2024 11:00 AM EDTTelephone Encounter - BARBARA Levi - 11/05/2023 2:08 PM ESTTelephone Encounter - BARBARA Levi - 11/05/2023 2:08 PM EST Note Date & Type Note Facility 01-19-2024 History of Present illness Narrative Images from the original note were not included. Rodrigue Wallace is a 73 year old female who presents today for colonoscopy consult. 73-year-old female who presents for colonoscopy consult. Her last colonoscopy 06/2017 revealed sigmoid diverticulosis, otherwise normal exam. Repeat was recommended in 5 years. She has FMH of CRC in her sister, she believes she was diagnosed around age 74. She averages a BM once daily, uses stool softener, she denies BRBPR or melena. She reports recently being diagnosed with JOSEPH and has been taking oral iron, currently once daily. She reports her JOSEPH resolved on recent labwork. She has history of GERD, is maintained on Esomeprazole 40 mg by mouth daily and denies breakthrough symptoms. She reports occasional trouble initiating her swallow but otherwise denies dysphagia, or odynophagia. She has early satiety which she attributes to her hiatal hernia, eats about 6 small meals throughout the day, avoids large meals. She is type 1 diabetic which she reports is very labile. GES in 2019 was normal. She denies n/v. She reports about a 20 lb weight loss over the past 6 months, which is currently stable. She attributes some of this weight loss to dietary changes to help manage her diabetes, also she has gotten dentures and admits to some trouble getting used to these. She takes NSAIDs daily, 81 mg aspirin, and Celebrex for arthritis. She does not smoke or consume alcohol. Her last EGD 12/2020 revealed a medium sized hiatal hernia, she has been recommended repair in the past. 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) Bronchitis Algodystrophy of Hand Localized Primary Osteoarthritis of Carpometacarpal Joint of Left Thumb Family History of Colon Cancer History of Colonic Polyps Hiatal Hernia FAMILY HISTORY Problem Relation Age of Onset other (Other [Other]) Unknown No known family history of breast cancer Thyroid Daughter Thyroid Sister Thyroid Maternal Aunt Diabetes Mother Type 2 DM, age 96 Emphysema Father age 76 Colon Cancer Sister Heart Sister Cancer Brother lung cancer Coronary Artery Disease Brother other (prediabetic [Other]) Brother PAST MEDICAL HISTORY Diagnosis Date Former smoker GERD (gastroesophageal reflux disease) HTN (hypertension) Hypercholesteremia IDDM (insulin dependent diabetes mellitus) Mental disorder Snoring PAST SURGICAL HISTORY Procedure Laterality Date ANTERIOR DISCECTOMY ARTHROSCOPY KNEE DIAGNOSTIC W/WO SYNOVIAL BX SPX Right 04/11/10 Arthroscopy, knee BREAST AUGMENTATION WITH IMPLANT 1976 bilateral silicone implants COLONOSCOPY 06/30/2017 Susu- diverticulosis, repeat in 5 years EGD 10/16/15 PAST SURGICAL HISTORY OF 03/22/10 pulled abscess tooth: cipro for 10 days. PAST SURGICAL HISTORY OF right shoulder surgery PAST SURGICAL HISTORY OF Left 11/02/15 arthroplasty base L thumb. TOTAL ABDOMINAL HYSTERECT W/WO RMVL TUBE OVARY 1990 RAUL-BSO Social History Tobacco Use Smoking status: Former Packs/day: 1.00 Years: 30.00 Additional pack years: 0.00 Total pack years: 30.00 Types: Cigarettes Quit date: 09/22/2002 Years since quittin.3 Smokeless tobacco: Never Substance Use Topics Alcohol use: Yes Comment: occasional Drug use: No ALLERGIES Allergen Reactions Fosamax [Alendronat* Other: See Comments Leg cramps, severe Macrodantin [Nitrof* Vomiting Penicillins Itching ferrous sulfate 325 mg (65 mg iron) tablet Take 1 tablet by mouth. rosuvastatin (CRESTOR) 5 mg tablet coenzyme Q10 30 mg capsule Take 30 mg by mouth. amLODIPine (NORVASC) 10 mg tablet gabapentin (NEURONTIN) 100 mg capsule NOVOLOG U-100 INSULIN ASPART 100 unit/mL Use via insulin pump, 30 units daily carisoprodol (SOMA ORAL) Take by mouth. lisinopril (PRINIVIL) 10 mg tablet Take 1 tablet by mouth once daily. cholecalciferol (VITAMIN D3) 1,000 unit tab Take 2 tablets by mouth once daily. esomeprazole (NEXIUM) 40 mg capsule Take 1 capsule by mouth once daily. HYDROcodone-acetaminophen (NORCO) 5-325 mg per tablet Take one-two tablets every six hours as needed for pain sertraline (ZOLOFT) 50 mg tablet Take 1 tablet by mouth once daily. mometasone (NASONEX) 50 mcg/actuation nasal spray Use 2 Sprays in the nose once daily. celecoxib (CELEBREX) 200 mg ORAL capsule Take 1 capsule by mouth once daily. calcium citrate-vitamin D3 (CITRACAL + D) 315-200 mg-unit ORAL Tab Take by mouth once daily. 1200mg Calcium + Vit D 1000IU (total D is 3000IU daily) multivitamin with minerals (ONE DAILY COMPLETE) ORAL Tab Take one(1) tablet daily. Aspirin 81 mg ORAL Tab Take one(1) tablet daily. BP 129/74 Pulse 75 Ht 5' 3 (1.60m) Wt 146 lb (66.2kg) BMI 25.87 kg/(m^2). Physical Exam Constitutional: Appearance: Normal appearance. HENT: Head: Normocephalic and atraumatic. Cardiovascular: Rate and Rhythm: Normal rate and regular rhythm. Heart sounds: Normal heart sounds. Pulmonary: Effort: Pulmonary effort is normal. Breath sounds: Normal breath sounds. Abdominal: General: Bowel sounds are normal. Palpations: Abdomen is soft. Musculoskeletal: General: Normal range of motion. Cervical back: Neck supple. Skin: General: Skin is warm and dry. Neurological: General: No focal deficit present. Mental Status: She is alert and oriented to person, place, and time. Psychiatric: Mood and Affect: Mood normal. Behavior: Behavior normal. Iron + transferrin + TIBC Specimen: Blood - Venous blood specimen (specimen) Component Ref Range & Units 7 d ago IRON, TOTAL 45 - 160 mcg/dL 142 IRON BINDING CAPACITY 250 - 450 mcg/dL (calc) 402 % SATURATION 16 - 45 % (calc) 35 FERRITIN 16 - 288 ng/mL 19 Resulting Agency [facility] Resulting Agency Comment Performing Organization Information Site ID: [id number] Name: [employer] [facility] Address: [address] [place] [address], [address] [place] [id number] Director: Félix Elder MD Specimen Collected: 01/12/24 10:46 AM Performed by: MONA Last Resulted: 01/13/24 10:49 AM Received From: [facility] Result Received: 01/19/24 9:59 AM CBC and differential Specimen: Blood - Venous blood specimen (specimen) Component Ref Range & Units 2 wk ago WHITE BLOOD CELL COUNT 3.8 - 10.8 Thousand/uL 4.9 RED BLOOD CELL COUNT 3.80 - 5.10 Million/uL 4.39 HEMOGLOBIN 11.7 - 15.5 g/dL 10.6 Low HEMATOCRIT 35.0 - 45.0 % 33.0 Low MCV 80.0 - 100.0 fL 75.2 Low MCH 27.0 - 33.0 pg 24.1 Low MCHC 32.0 - 36.0 g/dL 32.1 RDW 11.0 - 15.0 % 16.9 High PLATELET COUNT 140 - 400 Thousand/uL 346 MPV 7.5 - 12.5 fL 9.4 ABSOLUTE NEUTROPHILS 1500 - 7800 cells/uL 2,401 ABSOLUTE LYMPHOCYTES 850 - 3900 cells/uL 1,975 ABSOLUTE MONOCYTES 200 - 950 cells/uL 436 ABSOLUTE EOSINOPHILS 15 - 500 cells/uL 78 ABSOLUTE BASOPHILS 0 - 200 cells/uL 10 NEUTROPHILS % 49.0 LYMPHOCYTES % 40.3 MONOCYTES % 8.9 EOSINOPHILS % 1.6 BASOPHILS % 0.2 Resulting Agency [facility] Narrative Performed by [employer] FASTING:YES FASTING: YES Resulting Agency Comment Performing Organization Information Site ID: [id number] Name: [facility] Address: [address] [place] [id number] Director: Cristhian Murphy Specimen Collected: 12/31/23 8:39 AM Performed by: [employer] Last Resulted: 01/01/24 6:16 AM Received From: [facility] Result Received: 01/19/24 9:59 AM ASSESSMENT/PLAN: 1. Screening for malignant neoplasm of colon - ICD9: V76.51, ICD10: Z12.11 (primary diagnosis) - Due for screening. Colonoscopy 06/2017 revealed sigmoid diverticulosis, otherwise normal exam. Repeat was recommended in 5 years. [facility] of CRC in her sister. - COLONOSCOPY SCREENING. We we will plan for a MiraLAX/Gatorade bowel preparation. R/b/a discussed with the patient who is agreeable to proceed. She was advised to stop oral iron the week prior and initiate Miralax 1 capful daily. 2. Iron deficiency anemia, unspecified iron deficiency anemia type - ICD9: 280.9, ICD10: D50.9 - Recent iron panel available to view which was normal. She remains on oral iron daily. We will proceed with panendoscopy and obtain celiac serology. She takes NSAIDs daily, r/o PUD or other abnormal GI pathology. She is due for routine screening colonoscopy. - CELIAC SCREEN WITH REFLEX - COLONOSCOPY SCREENING - EGD DIAGNOSTIC 3. Hiatal hernia - ICD9: 553.3, ICD10: K44.9 - Further evaluate by EGD and consider referral back to surgery. - EGD DIAGNOSTIC Amparo Martinez APRN.[facility] [address], [address] [place] [address] Department: [phone] This note was generated with voice recognition software and may contain errors, including spelling, grammar, syntax and misrecognition of what was dictated, that are not fully corrected. documented in this encounter [facility] 11-05-2023 Telephone encounter Note OARRS reviewed, Rx sent into patient's pharmacy. [facility] 11-05-2023 Miscellaneous Notes OARRS reviewed, Rx sent into patient's pharmacy. documented in this encounter [facility] 12-11-2022 Miscellaneous Notes Received a fax from [employer] requesting C Peptide and Fasting glucose under 225 mg/dl done on the same day and A1C. Printed labs from 01/05/2003 and and printed A1C's from 01/27/13 & 04/26/22, faxed to [phone]. Confirmation received. documented in this encounter [facility] 12-05-2022 Miscellaneous Notes Received a fax from [employer] requesting copy of patient labs for C Peptide and fasting glucose. Faxed results, Confirmation received. documented in this encounter [facility] 11-06-2022 Miscellaneous Notes Received a form from [employer] for CGM and Pump supplies. Requesting last office notes within last 6 months. Printed notes from 04/26/22. Faxed completed form and notes. Confirmation received. documented in this encounter [facility] 07-04-2022 Miscellaneous Notes Received a fax from [facility] requesting last 2 office notes. Faxed notes from 09/26/21 and 04/26/22 to [phone]. Confirmation received. documented in this encounter [facility] 04-26-2022 Note HNO ID: [id number] Author: Araceli Nathan APRN.COMPUTER OPERATIONS MANAGER Service: ? Author Type: Nurse Practitioner Type: Progress Notes Filed: 04/26/2022 10:30 AM Note Text: 72yo WF with h/o DM1 since age 56, on Medtronic 670G pump in 09/2019, hypoglycemia unawareness, neuropathy, HTN, HLP, osteoporosis, here for f/u, followed by Dr. Hunter and I. At [facility] we increased carb ratio as she was consistently underestimating carbs to avoid low blood sugars. We also ordered Dexcom. She stopped using Medtronic sensor due to excessive alarms and need for frequent calibration. She is happy with Dexcom. She reports waking up low almost every morning. She admits carb counting is close to accurate (for example, she enters 30 carbs for Belvita in AM which is 36 carbs). Does not feel low unless BG is in 50s. Is asymptomatic sometimes in the 30s and 40s. had to treat her for severe hypoglycemia in 2019. Had DKA in past for which she was hospitalized. Patient checks blood sugar 5 times per day due to fluctuating readings. CGM/pump data as below. Other significant DM comorbidities: peripheral neuropathy Last saw ophthalmology: 09/11 Current Diabetes Medications, Dosage, Frequency: Medtronic 670G Basal: ? MN 0.500 9a 0.800 Noon 0.700 5p 0.650 10p 0.450 ?? Carb MN 20 ?? Sensitivity MN 50 AIT 3 hours Target BG MN 120-160 8a 90-140 11p 120-160 TDD 20 units Basal 71%, Bolus 29% Carbs/day 67 g compliance with diet has been good, entering carbs into pump consistently exercise: walks in house Patient has had hypoglycemia episodes; and was able to treat hypoglycemia by self. The patient experiences hypoglycemia at the following times: varies, history of severe hypoglycemia in the past Report of Self Monitoring of Blood Glucose: Summary of Personal CGM Findings: Dates worn: 04/13/2022-04/26/2022 CGM Type: Dexcom 1- CGM recording is adequate for interpretation. Worn 92% of time. 2- Average glucose is 176 mg/dl. 3. 53% time in range 70-180mg/dL 4. Coefficient of variation: 45% 5. Total frequency of hypoglycemia: 5% with BG<70 * Hypoglycemia patterns: early AM and prior to lunch *Nocturnal hypoglycemia noted 6- Hyperglycemic episodes 42% with BG>180 * Hyperglycemia Patterns: after breakfast PAST MEDICAL HISTORY Diagnosis Date - Former smoker - GERD (gastroesophageal reflux disease) - HTN (hypertension) - Hypercholesteremia - IDDM (insulin dependent diabetes mellitus) - Mental disorder - Snoring Past Family and Social History reviewed and updated, as needed. Current Outpatient Medications on File Prior to Visit Medication Sig - Blood-Glucose Meter,Continuous (DEXCOM G6 SWIMMING POOL SERVICER) misc USE TO TEST BLOOD SUGARS 5 TIMES DAILY - Blood-Glucose Sensor ([employer] G6 SENSOR) shayy USE TO TEST BLOOD SUGARS 5 TIMES DAILY - Blood-Glucose Transmitter ([employer] G6 TRANSMITTER) shayy USE TO TEST BLOOD SUGARS 5 TIMES DAILY - blood sugar diagnostic ([employer] NEXT TEST STRIPS) test strip USE TO TEST BLOOD SUGARS 5 TIMES DAILY - carisoprodol (SOMA ORAL) Take by mouth. - Lancets (ONETOUCH ULTRASOFT LANCETS) lancets Use to test blood sugar 8 times daily - Insulin Syringe-Needle U-100 0.5 mL 30 gauge x 5/16 syrg Use as directed four times daily for insulin injections in case of pump failure Dx: E10.649 - NOVOLOG U-100 INSULIN ASPART 100 unit/mL Use via insulin pump, 30 units daily - Blood-Glucose Meter (CONTOUR NEXT METER) - meloxicam (MOBIC) 15 mg tablet Take 15 mg by mouth once daily. (Patient not taking: Reported on 06/12/2021 ) - PROLIA 60 mg/mL syrg (Patient not taking: Reported on 06/12/2021 ) - ezetimibe (ZETIA) 10 mg tablet Take 1 tab daily - Subcutaneous Insulin Pump (PARADIGM INSULIN PUMP[place] [facility] [place] Basal: 24:00- 00.35. 300-0.55; 0700-0.75 2300-0.375. Bolus: 6:00 1/8 g CHO;10:30 1/9; 1700-1/10; 2200 15 Theodore: 1 for 60 >120 - glucagon, human recombinant, (GLUCAGON EMERGENCY KIT, HUMAN,) 1 mg injection Inject (1)one mg for insulin shock. - lisinopril (PRINIVIL) 10 mg tablet Take 1 tablet by mouth once daily. - cholecalciferol (VITAMIN D3) 1,000 unit tab Take 2 tablets by mouth once daily. - esomeprazole (NEXIUM) 40 mg capsule Take 1 capsule by mouth once daily. - tiZANidine (ZANAFLEX) 4 mg tablet Take 1 tablet by mouth once daily. (Patient not taking: Reported on 06/12/2021 ) - Glucosamine-Chondroitin (OSTEO BI-FLEX) 250-200 mg tab Takes two tablets daily - HYDROcodone-acetaminophen (NORCO) 5-325 mg per tablet Take one-two tablets every six hours as needed for pain - sertraline (ZOLOFT) 50 mg tablet Take 1 tablet by mouth once daily. - mometasone (NASONEX) 50 mcg/actuation nasal spray Use 2 Sprays in the nose once daily. - COMPOUNDED PRESCRIPTION One touch ultra blue test strips, insulin pump, iddm, 250.00, tests 5 x daily. - dextrose (GLUCOSE GEL) 40 % gel Take 10 g by mouth as needed. - celecoxib (CELEBREX) 200 mg ORAL capsule Take 1 capsu (more content not included)... [facility] 04-26-2022 Instructions Araceli Nathan APRN.RHEA - 04/26/2022 10:13 AM EDT Basal: MN 0.500-->0.425 9a 0.800-->0.700 Noon 0.700 5p 0.650 10p 0.450 Carb MN 18 10a 20 Sensitivity MN 50 Obtain labs Follow up with Dr. Hunter in 2 months documented in this encounter [facility] 04-26-2022 History of Present illness Narrative 72yo WF with h/o DM1 since age 56, on Medtronic 670G pump in 09/2019, hypoglycemia unawareness, neuropathy, HTN, HLP, osteoporosis, here for f/u, followed by Dr. Hunter and I. At [facility] we increased carb ratio as she was consistently underestimating carbs to avoid low blood sugars. We also ordered Dexcom. She stopped using Medtronic sensor due to excessive alarms and need for frequent calibration. She is happy with Dexcom. She reports waking up low almost every morning. She admits carb counting is close to accurate (for example, she enters 30 carbs for Belvita in AM which is 36 carbs). Does not feel low unless BG is in 50s. Is asymptomatic sometimes in the 30s and 40s. had to treat her for severe hypoglycemia in 2019. Had DKA in past for which she was hospitalized. Patient checks blood sugar 5 times per day due to fluctuating readings. CGM/pump data as below. Other significant DM comorbidities: peripheral neuropathy Last saw ophthalmology: 09/11 Current Diabetes Medications, Dosage, Frequency: Medtronic 670G Basal: MN 0.500 9a 0.800 Noon 0.700 5p 0.650 10p 0.450 Carb MN 20 Sensitivity MN 50 AIT 3 hours Target BG MN 120-160 8a 90-140 11p 120-160 TDD 20 units Basal 71%, Bolus 29% Carbs/day 67 g compliance with diet has been good, entering carbs into pump consistently exercise: walks in house Patient has had hypoglycemia episodes; and was able to treat hypoglycemia by self. The patient experiences hypoglycemia at the following times: varies, history of severe hypoglycemia in the past Report of Self Monitoring of Blood Glucose: Summary of Personal CGM Findings: Dates worn: 04/13/2022-04/26/2022 CGM Type: Dexcom 1- CGM recording is adequate for interpretation. Worn 92% of time. 2- Average glucose is 176 mg/dl. 3. 53% time in range 70-180mg/dL 4. Coefficient of variation: 45% 5. Total frequency of hypoglycemia: 5% with BG<70 * Hypoglycemia patterns: early AM and prior to lunch *Nocturnal hypoglycemia noted 6- Hyperglycemic episodes 42% with BG>180 * Hyperglycemia Patterns: after breakfast PAST MEDICAL HISTORY Diagnosis Date Former smoker GERD (gastroesophageal reflux disease) HTN (hypertension) Hypercholesteremia IDDM (insulin dependent diabetes mellitus) Mental disorder Snoring Past Family and Social History reviewed and updated, as needed. Current Outpatient Medications on File Prior to Visit Medication Sig Blood-Glucose Meter,Continuous (DEXCOM G6 SWIMMING POOL SERVICER) misc USE TO TEST BLOOD SUGARS 5 TIMES DAILY Blood-Glucose Sensor (DEXCOM G6 SENSOR) shayy USE TO TEST BLOOD SUGARS 5 TIMES DAILY Blood-Glucose Transmitter (DEXCOM G6 TRANSMITTER) shayy USE TO TEST BLOOD SUGARS 5 TIMES DAILY blood sugar diagnostic (CONTOUR NEXT TEST STRIPS) test strip USE TO TEST BLOOD SUGARS 5 TIMES DAILY carisoprodol (SOMA ORAL) Take by mouth. Lancets ([employer] StreetTOUCH ULTRASOFT LANCETS) lancets Use to test blood sugar 8 times daily Insulin Syringe-Needle U-100 0.5 mL 30 gauge x 5/16 syrg Use as directed four times daily for insulin injections in case of pump failure Dx: E10.649 NOVOLOG U-100 INSULIN ASPART 100 unit/mL Use via insulin pump, 30 units daily Blood-Glucose Meter (CONTOUR NEXT METER) meloxicam (MOBIC) 15 mg tablet Take 15 mg by mouth once daily. (Patient not taking: Reported on 06/12/2021 ) PROLIA 60 mg/mL syrg (Patient not taking: Reported on 06/12/2021 ) ezetimibe (ZETIA) 10 mg tablet Take 1 tab daily Subcutaneous Insulin Pump (PARADIGM INSULIN PUMP[place] [facility] [place] Basal: 24:00- 00.35. 300-0.55; 0700-0.75 2300-0.375. Bolus: 6:00 1/8 g CHO;10:30 1/9; 1700-1/10; 2200 1/15 Theodore: 1 for 60 >120 glucagon, human recombinant, (GLUCAGON EMERGENCY KIT, HUMAN,) 1 mg injection Inject (1)one mg for insulin shock. lisinopril (PRINIVIL) 10 mg tablet Take 1 tablet by mouth once daily. cholecalciferol (VITAMIN D3) 1,000 unit tab Take 2 tablets by mouth once daily. esomeprazole (NEXIUM) 40 mg capsule Take 1 capsule by mouth once daily. tiZANidine (ZANAFLEX) 4 mg tablet Take 1 tablet by mouth once daily. (Patient not taking: Reported on 06/12/2021 ) Glucosamine-Chondroitin (OSTEO BI-FLEX) 250-200 mg tab Takes two tablets daily HYDROcodone-acetaminophen (NORCO) 5-325 mg per tablet Take one-two tablets every six hours as needed for pain sertraline (ZOLOFT) 50 mg tablet Take 1 tablet by mouth once daily. mometasone (NASONEX) 50 mcg/actuation nasal spray Use 2 Sprays in the nose once daily. COMPOUNDED PRESCRIPTION One touch ultra blue test strips, insulin pump, iddm, 250.00, tests 5 x daily. dextrose (GLUCOSE GEL) 40 % gel Take 10 g by mouth as needed. celecoxib (CELEBREX) 200 mg ORAL capsule Take 1 capsule by mouth once daily. calcium citrate-vitamin D3 (CITRACAL + D) 315-200 mg-unit ORAL Tab Take by mouth once daily. 1200mg Calcium + Vit D 1000IU (total D is 3000IU daily) multivitamin with minerals (ONE DAILY COMPLETE) ORAL Tab Take one(1) tablet daily. Aspirin 81 mg ORAL Tab Take one(1) tablet daily. No current facility-administered medications on file prior to visit. REVIEW OF SYSTEMS: GENERAL: No weight loss, malaise or fevers RESPIRATORY: Negative for cough, hemoptysis, wheezing, COPD, dyspnea or shortness of breath CARDIOVASCULAR: Negative for chest pain, leg swelling, hypertension, CHF or palpitations GI: No nausea, vomiting, or diarrhea ENDOCRINE: Negative for cold or heat intolerance, polyuria, polydipsia and goiter NEUROLOGIC:Negative for focal numbness or weakness, headaches and dizziness or syncope. PHYSICAL EXAM: BP 126/84 Pulse 74 Ht 160 cm (5' 3 ) Wt 72.1 kg (159 lb) BMI 28.17 kg/m General appearance: Well appearing, alert, in no acute distress, well-hydrated, well nourished. Skin: Skin color, texture, turgor normal, no suspicious rashes or lesions HEART: normal rate LUNGS: unlabored, normal respiratory rate EXTREMITIES No deformities, No skin discoloration and No edema NEURO: Speech normal, mental status intact, no tremor noted. LABS Component Hemoglobin A1C Hemoglobin A1C (POCT) Latest Ref Rng & Units 4.3 - 5.6 % 4.2 - 5.6 % 10/02/2021 7.6 (H) 01/01/2022 7.8 (A) 04/26/2022 7.1 (A) Component Latest Ref Rng & Units 06/07/2021 Protein, Total 6.3 - 8.0 g/dL 7.4 Albumin 3.9 - 4.9 g/dL 4.3 Calcium 8.5 - 10.2 mg/dL 9.8 Bilirubin, Total 0.2 - 1.3 mg/dL 0.3 Alkaline Phosphatase 34 - 123 U/L 178 (H) AST 13 - 35 U/L 16 Glucose 74 - 99 mg/dL 175 (H) BUN 7 - 21 mg/dL 7 Creatinine 0.58 - 0.96 mg/dL 0.54 (L) Sodium 136 - 144 mmol/L 131 (L) Potassium 3.7 - 5.1 mmol/L 4.9 Chloride 97 - 105 mmol/L 91 (L) CO2 22 - 30 mmol/L 28 Anion Gap 9 - 18 mmol/L 12 ALT 7 - 38 U/L <5 (L) eGFR- >60 eGFR-All Other Races . 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 She is then having spikes after breakfast requiring extra correction, followed by tight/low BGs again prior to lunch (likely carb coverage is insufficient at breakfast, but basal rate at that time is too high, causing lows about 3-4 hours after breakfast). -Change settings as below. -Discussed closed-loop therapy would be best for her given labile blood sugars, however she is still in warranty with Medtronic pump and prefers to switch to a pump that connects with Dexcom in the future. Discussed tslim as an option after her warranty is up. -Obtain CMP, FLP, UACR prior to follow up. New Settings: Basal: MN 0.500-->0.425 9a 0.800-->0.700 Noon 0.700 5p 0.650 10p 0.450 Carb MN 18 10a 20 Sensitivity MN 50 Insulin pump status -As above Insulin pump titration -As above FDC (current) use of insulin (HCC) -As above F/u [address] Hunter as scheduled Some elements copied from my note (01/01/2022) which have been updated where appropriate, and all reflect current medical decision making from date of this visit. Araceli Nathan APRN.RHEA documented in this encounter [facility] 01-01-2022 Miscellaneous Notes Prescriptions faxed to [facility] as requested in below message. Confirmation received. Called patient to update. Rodrigue gave verbal understanding. Addended by: ARACELI NATHAN on: 01/01/2022 01:54 PM Modules accepted: Orders Rx printed. Please fax and give patient a call to let her know we are sending this. Call placed to [facility] to inquire for a form for Dexcom G6. [employer] states we can fax a prescription to : [phone] and they will send us what form is needed. documented in this encounter [facility] 01-01-2022 Note HNO ID: [id number] Author: Araceli Nathan APRN.CNP Service: ? Author Type: Nurse Practitioner Type: Progress Notes Filed: 01/01/2022 2:03 PM Note Text: 71yo WF with h/o DM1 since age 56, on Medtronic 670G pump in 09/2019, hypoglycemia unawareness, neuropathy, HTN, HLP, osteoporosis, here for f/u Is still having lows but not as frequent. Does not feel low unless BG is in 50s. Is asymptomatic sometimes in the 30s and 40s. had to treat her for severe hypoglycemia in 2019. Had DKA in past for which she was hospitalized. Admits sugars have been higher lately. She had an ear infection and UTI for 10 days about 3-4 weeks ago and she had trouble bringing sugar down then. She is consistently reducing carb entry into pump by 30% or more as she reports she will have a low if entering in correct amount of carbs. Eats Belvita which is 36 carbs, she is entering in 21. She is having post meal elevations however. Patient checks blood sugar 5 times per day due to fluctuating readings: Her 14 day average = 213 Two lows in the past two weeks She stopped using Medtronic sensor due to excessive alarms and need for frequent calibration. Dexcom was ordered at previous visit but she has not been able to obtain yet. Other significant DM comorbidities: peripheral neuropathy Last saw ophthalmology: 09/11 Current Diabetes Medications, Dosage, Frequency: Medtronic 670G Basal: ? MN 0.500 9a 0.800 Noon 0.700 5p 0.650 10p 0.450 ?? Carb MN 15 ?? Sensitivity MN 50 AIT 3 hours Target BG MN 120-160 8a 90-140 11p 120-160 compliance with diet has been good, entering carbs into pump consistently exercise: walks in house Patient has had hypoglycemia episodes; and was able to treat hypoglycemia by self. The patient experiences hypoglycemia at the following times: varies, history of severe hypoglycemia in the past Report of Self Monitoring of Blood Glucose: See HPI PAST MEDICAL HISTORY Diagnosis Date - Former smoker - GERD (gastroesophageal reflux disease) - HTN (hypertension) - Hypercholesteremia - IDDM (insulin dependent diabetes mellitus) - Mental disorder - Snoring Past Family and Social History reviewed and updated, as needed. Current Outpatient Medications on File Prior to Visit Medication Sig - Blood-Glucose Meter,Continuous (DEXCOM G6 SWIMMING POOL SERVICER) misc USE TO TEST BLOOD SUGARS 5 TIMES DAILY - Blood-Glucose Sensor (DEXCOM G6 SENSOR) shayy USE TO TEST BLOOD SUGARS 5 TIMES DAILY - Blood-Glucose Transmitter (DEXCOM G6 TRANSMITTER) shayy USE TO TEST BLOOD SUGARS 5 TIMES DAILY - blood sugar diagnostic (CONTOUR NEXT TEST STRIPS) test strip USE TO TEST BLOOD SUGARS 5 TIMES DAILY - carisoprodol (SOMA ORAL) Take by mouth. - Lancets (ONETOUCH ULTRASOFT LANCETS) lancets Use to test blood sugar 8 times daily - Insulin Syringe-Needle U-100 0.5 mL 30 gauge x 5/16 syrg Use as directed four times daily for insulin injections in case of pump failure Dx: E10.649 - NOVOLOG U-100 INSULIN ASPART 100 unit/mL Use via insulin pump, 30 units daily - Blood-Glucose Meter (CONTOUR NEXT METER) - meloxicam (MOBIC) 15 mg tablet Take 15 mg by mouth once daily. (Patient not taking: Reported on 06/12/2021 ) - PROLIA 60 mg/mL syrg (Patient not taking: Reported on 06/12/2021 ) - ezetimibe (ZETIA) 10 mg tablet Take 1 tab daily - Subcutaneous Insulin Pump (PARADIGM INSULIN PUMP) [facility] [place] Basal: 24:00- 00.35. 300-0.55; 0700-0.75 2300-0.375. Bolus: 6:00 1/8 g CHO;10:30 1/9; 1700-1/10; 2200 1/15 Theodore: 1 for 60 >120 - glucagon, human recombinant, (GLUCAGON EMERGENCY KIT, HUMAN,) 1 mg injection Inject (1)one mg for insulin shock. - lisinopril (PRINIVIL) 10 mg tablet Take 1 tablet by mouth once daily. - cholecalciferol (VITAMIN D3) 1,000 unit tab Take 2 tablets by mouth once daily. - esomeprazole (NEXIUM) 40 mg capsule Take 1 capsule by mouth once daily. - tiZANidine (ZANAFLEX) 4 mg tablet Take 1 tablet by mouth once daily. (Patient not taking: Reported on 06/12/2021 ) - Glucosamine-Chondroitin (OSTEO BI-FLEX) 250-200 mg tab Takes two tablets daily - HYDROcodone-acetaminophen (NORCO) 5-325 mg per tablet Take one-two tablets every six hours as needed for pain - sertraline (ZOLOFT) 50 mg tablet Take 1 tablet by mouth once daily. - mometasone (NASONEX) 50 mcg/actuation nasal spray Use 2 Sprays in the nose once daily. - COMPOUNDED PRESCRIPTION One touch ultra blue test strips, insulin pump, iddm, 250.00, tests 5 x daily. - dextrose (GLUCOSE GEL) 40 % gel Take 10 g by mouth as needed. - celecoxib (CELEBREX) 200 mg ORAL capsule Take 1 capsule by mouth once daily. - calcium citrate-vitamin D3 (CITRACAL + D) 315-200 mg-unit ORAL Tab Take by mouth once daily. 1200mg Calcium + Vit D 1000IU (total D is 3000IU daily) - multivitamin with minerals (ONE DAILY COMPLETE) ORAL Tab Take one(1) tablet daily. - Aspirin 81 mg ORAL Tab Take one(1) tablet daily. No cur (more content not included)... [facility] 12-18-2009 History of Past i llness Narrative Problem Noted Date Resolved Date Diabetes mellitus type 1, un controlled, without complications 12/18/2009 08/23/2016 Type II or unspecified type diabetes mellitus without mention of complication, uncontrolled 07/22/2005 12/18/2009 Type II or unspecified type diabetes mellitus without mention of complication, not stated as uncontrolled 07/22/2005 documented as of this encounter (statuses as of 01/01/2022) [facility]03-29-2010 History of Past illness Narrative* Problem Noted Date Resolved Date Diabetes mellitus type 1, un controlled, without complications 12/18/2009 08/23/2016 Type II or unspecified type diabetes mellitus without mention of complication, uncontrolled 07/22/2005 12/18/2009 Type II or unspecified type diabetes mellitus without mention of complication, not stated as uncontrolled 07/22/2005 documented as of this encounter (statuses as of 04/26/2022) [facility] History of Past illness Narrative* Problem Noted Date Resolved Date Diabetes mellitus type 1, un controlled, without complications 12/18/2009 08/23/2016 Type II or unspecified type diabetes mellitus without mention of complication, uncontrolled 07/22/2005 12/18/2009 Type II or unspecified type diabetes mellitus without mention of complication, not stated as uncontrolled 07/22/2005 documented as of this encounter (statuses as of 07/10/2022) [facility]2010 History of Past illness Narrative* Problem Noted Date Resolved Date Diabetes mellitus type 1, un controlled, without complications 12/18/2009 08/23/2016 Type II or unspecified type diabetes mellitus without mention of complication, uncontrolled 07/22/2005 12/18/2009 Type II or unspecified type diabetes mellitus without mention of complication, not stated as uncontrolled 07/22/2005 documented as of this encounter (statuses as of 11/07/2022) [facility] History of Past illness Narrative* Problem Noted Date Resolved Date Diabetes mellitus type 1, un controlled, without complications 12/18/2009 08/23/2016 Type II or unspecified type diabetes mellitus without mention of complication, uncontrolled 07/22/2005 12/18/2009 Type II or unspecified type diabetes mellitus without mention of complication, not stated as uncontrolled 07/22/2005 documented as of this encounter (statuses as of 12/05/2022) [facility] History of Past illness Narrative* Problem Noted Date Resolved Date Diabetes mellitus type 1, un controlled, without complications 12/18/2009 08/23/2016 Type II or unspecified type diabetes mellitus without mention of complication, uncontrolled 07/22/2005 12/18/2009 Type II or unspecified type diabetes mellitus without mention of complication, not stated as uncontrolled 07/22/2005 documented as of this encounter (statuses as of 12/11/2022) [facility] [place] [facility] Diagnosis 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) Type I (juvenile type) diabetes mellitus with other specified manifestations, not stated as uncontrolled Insulin pump status documented in this encounter [facility] [place] [facility] Diagnosis 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)- Primary Type I (juvenile type) diabetes mellitus with other specified manifestations, not stated as uncontrolled Insulin pump status Insulin pump titration Fitting and adjustment of insulin pump FDC (current) use of insulin (HCC) [facility] [place] [facility] Diagnosis Secondary osteoarthritis, right [facility] Screening for malignant neoplasm of colon- Primary Iron deficiency anemia, unspecified iron deficiency anemia type Hiatal hernia Diaphragmatic hernia without mention of obstruction or gangrene Family history of colon cancer Family history of malignant neoplasm of gastrointestinal tract documented in this encounter [facility] for referral (narrative)* Outpatient Procedure (Routine) - Authorized Specialty Diagnoses / Procedures Referred By Dre t Referred To Contact [facility] Diagnoses Iron deficiency anemia, unspecified iron deficiency anemia type Hiatal hernia Procedures EGD DIAGNOSTIC ESOPHAGOGASTRODUODENOSC OPY TRANSORAL DIAGNOSTIC Amparo Martinez APRN.CNP [address] [place] [address] [facility] [address] [address] Referral ID Status Reason Start Date Expiration Date Visits Requested Visits Authorized [id number] Authorized Auto-Generat ed Referral 01/19/2024 01/18/2025 1 1 * Outpatient Procedure (Routine) - Authorized Specialty Diagnoses / Procedures Referred By Dre t Referred To Contact [facility] Diagnoses Iron deficiency anemia, unspecified iron deficiency anemia type Screening for malignant neoplasm of colon Procedures COLONOSCOPY SCREENING COLONOSCOPY FLX DX W/COLLJ SPEC WHEN PFRMD Amparo Martinez APRN.CNP [address] [place] [address] [facility] Disease [place] [id number] Referral ID Status Reason Start Date Expiration Date Visits Requested Visits Authorized [id number] Authorized Auto-Generat ed Referral 01/19/2024 01/18/2025 1 1 [facility] Summary Purpose Family History No Family History Records FoundNo Family History Records FoundNo Family History Records FoundNo Family History Records FoundNo Family History Records FoundNo Family History Records FoundNo Family History Records FoundNo Family History Records FoundNo Family History Records Found Advance Directives No Advanced Directives Records FoundDocuments on File Type Date Recorded Patient Hearth Feeder Expl anation Advance Directive(s) 04/15/2019 8:02 AM Advance Directive(s) 06/30/2017 9:10 AM Advance Directive(s) 03/01/2016 8:02 AM Advance Directive(s) 01/26/2016 7:31 AM Advance Directive(s) 11/02/2015 8:54 AM Advance Directive(s) 11/02/2015 9:04 AM Documents on File Type Date Recorded Patient Hearth Feeder Expl anation Advance Directive(s) 11/02/2015 8:54 AM Advance Directive(s) 11/02/2015 9:04 AM Documents on File Type Date Recorded Patient Hearth Feeder Expl anation Advance Directive(s) 11/02/2015 9:04 AM Advance Directive(s) 11/02/2015 8:54 AM Hospital Course [id number] Admitted: 06/15/2018 Discharged: 06/17/2018 Date of : 1950 Physician: Bryce Bolton MD DISCHARGE SUMMARYHOSPITAL COURSE: The patient is a 68-year-old female with past medicalhistory significant for newly diagnosed hypertension and diabetes, whop[facility]ed to [facility] as a transfer from [facility]. The patient was found tohave high blood pressure 230/120 at the Cardiology office from where shewas sent to the [facility] and then transferred to the [facility]. At the timeof this presentation, the patient did not have any chest pain. The patientdid not have any nausea or vomiting. The patient did have some dizzinessand presyncope episode before coming to the hospital. The patient wastreated with hypertensive urgency initially and the patient hadunremarkable EKG and there was no troponin elevation. The patient's bloodpressure was stabilized and the patient was started on oral medication,lisinopril and amlodipin (more content not included)... Additional Source Comments INFORMATION SOURCE (unrecogn ized section and content) DATE CREATED AUTHOR 08/04/2018 [facility] DATE CREATED AUTHOR AUTHOR'S ORGANIZ ATION 08/31/2018 [facility] DATE CREATED AUTHOR AUTHOR'S ORGANIZ ATION 03/12/2019 [facility] DATE CREATED AUTHOR AUTHOR'S ORGANIZ ATION 04/15/2019 [facility] DATE CREATED AUTHOR AUTHOR'S ORGANIZ ATION 07/27/2021 [facility] DATE CREATED AUTHOR AUTHOR'S ORGANIZ ATION 11/15/2021 [facility] DATE CREATED AUTHOR AUTHOR'S ORGANIZ ATION 09/21/[address] [facility] DATE CREATED AUTHOR AUTHOR'S ORGANIZ ATION 12/12/2022 [facility] DATE CREATED AUTHOR AUTHOR'S ORGANIZ ATION 02/19/2024 [facility] EPIC Source Comments (unrecognize d section and content) In the event this informatio n is protected by the Federal Confidentiality of Alcohol and Drug Abuse Patient Records regulations: The Federal rules restrict any use of the information to criminally investigate or prosecute any alcohol or drug abuse patient.[facility] the event this information is protected by the Federal Confidentiality of Alcohol and Drug Abuse Patient Records regulations: The Federal rules restrict any use of the information to criminally investigate or prosecute any alcohol or drug abuse patient.[facility] the event this information is protected by the Federal Confidentiality of Alcohol and Drug Abuse Patient Records regulations: The Federal rules restrict any use of the information to criminally investigate or prosecute any alcohol or drug abuse patient.[facility] the event this information is protected by the Federal Confidentiality of Alcohol and Drug Abuse Patient Records regulations: The Federal rules restrict any use of the information to criminally investigate or prosecute any alcohol or drug abuse patient.[facility] the event this information is protected by the Federal Confidentiality of Alcohol and Drug Abuse Patient Records regulations: The Federal rules restrict any use of the information to criminally investigate or prosecute any alcohol or drug abuse patient.[facility] the event this information is protected by the Federal Confidentiality of Alcohol and Drug Abuse Patient Records regulations: The Federal rules restrict any use of the information to criminally investigate or prosecute any alcohol or drug abuse patient.[facility] the event this information is protected by the Federal Confidentiality of Alcohol and Drug Abuse Patient Records regulations: The Federal rules restrict any use of the information to criminally investigate or prosecute any alcohol or drug abuse patient.[facility] Reason for Visit (unrecogniz ed section and content) Reason Comments Dexcom Reason Comments Diabetes Reason Comments Patient Update Diabetes Management & Supplies Reason Comments Forms [employer] [facility] Reason Comments Patient Update Solara Reason Onset Date Comments Med Refill 11/05/2023 Reason Comments Established Patient Colon consult Care Teams (unrecognized sec tion and content) Meat Team Lead Relationship Specialty Start Date End Date Howard Santiago II PCP - General Internal Medicine 06/07/11 Meat Team Lead Relationship Specialty Start Date End Date Howard Santiago II PCP - General Internal Medicine 06/07/11 Meat Team Lead Relationship Specialty Start Date End Date Howard Santiago II PCP - General Internal Medicine 06/07/11 Meat Team Lead Relationship Specialty Start Date End Date Howard Santiago MD [address] [place] [address] PCP - General Internal Medicine 01/27/23 Howard Santiago MD [address] [place] [address] PCP - ACO Reach 02/13/23 Meat Team Lead Relationship Specialty Start Date End Date Howard Santiago II, MD PCP - General Internal Medicine 06/07/11 FOR RECORDS PERTAINING TO PATIENTS WHO ARE OR HAVE BEEN ENROLLED IN A CHEMICAL DEPENDENCY/SUBSTANCEABUSE PROGRAM, SOME INFORMATION MAY BE OMITTED. This clinical summary was aggregated from multiple sources. Caution should be exercised in using it in the provision of clinical care. This summary normalizes information from multiple sources, and as a consequence, information in this document may materially change the coding, format and clinical context of patient data. In addition, data may be omitted in some cases. CLINICAL DECISIONS SHOULD BE BASED ON THE PRIMARY CLINICAL RECORDS. [employer] provides no warranty or guarantee of the accuracy or completeness of information in this document.
--- NOTE | 2024-02-26 08:27 | ECG_ITS ---
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
--- NOTE | 2024-02-26 08:27 | CT_ITS ---
[address] [address] Patient Name: RODRIGUE WALLACE MRN: [id number] date: 1950 Sex: F Assigned Patient Location: ER Current Patient Location: ED.MAIN Accession/Order Number: [id number] Exam Date: 02/26/2024 09:30 Report Date: 02/26/2024 10:27 At the request of: INA FOWLER Procedure: CT abdomen pelvis wo con EXAMINATION: CT abdomen pelvis wo con HISTORY: abd pain and lower gi bleeding COMPARISON: CT abdomen pelvis 06/26/2017 TECHNIQUE: Axial, Coronal, and Sagittal images were obtained without and/or with IV contrast as indicated by examination type. Dose reduction techniques were achieved by using automated exposure control and/or adjustment of mA and/or kV according to patient size and/or use of iterative reconstruction technique. FINDINGS: LUNG BASES: No visible pulmonary or pleural disease. LIVER: No enlargement, atrophy, suspicious density, or significant focal lesion. BILIARY: No dilatation or calcification. PANCREAS: No lesion, fluid collection, or abnormal duct dilatation. SPLEEN: No enlargement or focal lesion. ADRENALS: No mass or enlargement. KIDNEYS: No mass, obstruction, or calcification. BOWEL/MESENTERY: Large hiatal hernia with almost the entire stomach above the diaphragm. Multiple small diverticula along the descending and sigmoid colon with mild pericolonic inflammatory changes and superficial wall thickening extending from splenic flexure to distal descending colon. No free air or free fluid. AORTA/VASCULAR: No aneurysm or dissection. RETROPERITONEUM: No mass or adenopathy. LYMPH NODES: No adenopathy. URINARY BLADDER: No visible focal wall thickening, lesion, or calculus. PELVIC ORGANS: Hysterectomy. ABDOMINAL WALL: No mass or hernia. BONES: Stable mild compression fracture L1 and L2. Slight progression of superior endplate compression fracture of L4. Intervertebral disc spacer at L5-S1. OTHER: Negative. CT/CT abdomen pelvis wo con IMPRESSION: 1. Mild-moderate acute diverticulitis versus colitis of the descending colon. 2. No bowel obstruction, free air, free fluid. 3. Multilevel mild/moderate compression fractures of lumbar spine which appear to be chronic, although there is been progression at L4 since 05/14/2021. Electronically authenticated by: SARABJIT ZAYAS Date: 02/26/2024 10:27
--- NOTE | 2024-02-26 08:35 | ED_ITS ---
HPI - GI Bleed General Chief complaint: Abdominal Pain Stated complaint: LOWER ABDOMINAL PAIN Time Seen by Provider: 02/26/24 08:18 Source: patient Mode of arrival: Wheelchair Limitations: no limitations History of Present Illness HPI Narrative: The patient presenting to us with a 1 day history of abdominal pain mostly lower abdomen, associated with no nausea no vomiting but she did mention having bloody stool at home as well as today when she got to the ER. The patient denying any fever chills or any other complaints. She is endorsing shortness of breath as well as dizziness for the last 24 hours. Her at the bedside mentioned that he was noticing some bloody urine in the toilet seat for the last few days Related Data Home Medications ?Medication ?Instructions ?Recorded ?Confirmed amlodipine 10 mg tablet 10 mg PO QDAY 09/17/23 09/17/23 carisoprodol 350 mg tablet 350 mg PO BID 09/17/23 09/17/23 celecoxib 200 mg capsule 200 mg PO QDAY 09/17/23 09/17/23 esomeprazole magnesium 40 mg 40 mg PO QDAY 09/17/23 09/17/23 capsule,delayed release gabapentin 100 mg capsule 100 mg PO BID 09/17/23 09/17/23 hydrocodone 10 mg-acetaminophen 1 tab PO Q6H PRN pain 09/17/23 09/17/23 325 mg tablet lisinopril 20 mg tablet 20 mg PO QDAY 09/17/23 09/17/23 novolog insulin pump 09/17/23 rosuvastatin 5 mg tablet 5 mg PO QDAY 09/17/23 09/17/23 sertraline 100 mg tablet 100 mg PO Q24H 09/17/23 09/17/23 Previous Rx's ?Medication ?Instructions ?Recorded albuterol sulfate 90 mcg/actuation 2 inh inhalation Q4H PRN shortness 09/19/23 aerosol inhaler (Ventolin HFA) of breath or wheezing #6.7 grams Allergies Allergy/AdvReac Type Severity Reaction Status Date / Time Penicillins Allergy Verified 02/26/24 08:16 oxycodone AdvReac Intermediate itching Verified 02/26/24 08:16 Review of Systems ROS Status of ROS 10 or more systems reviewed and unremark able except as noted in history and below [facility] Medical History (Updated 06/06/24 @ 10:45 by Enriqueta Thrasher MD) COVID ?U07.1 - COVID-19 (ICD-10) GERD (gastroesophageal reflux disease) ?K21.9 - Gastro-esophageal reflux disease without esophagitis (ICD-10) Chronic pain ?G89.29 - Other chronic pain (ICD-10) Depression ?F32.A - Depression, unspecified (ICD-10) Hyperlipidemia ?E78.5 - Hyperlipidemia, unspecified (ICD-10) HTN (hypertension) ?I10 - Essential (primary) hypertension (ICD-10) Diabetes type I ?E10.9 - Type 1 diabetes mellitus without complications (ICD-10) Social History Smoking status: Current every day smoker Highest level of school completed/degree received: high school graduate Exam Narrative Exam Narrative: Nurses notes and vital signs reviewed and patient is not hypoxic. General: Well-appearing and in no apparent distress. Skin: Warm, dry, no pallor noted. No rash. Head: Normocephalic, atraumatic. Neck: Supple, non-tender. Eye: Pupils are equal, round and EOMI. No scleral icterus. Ears, Nose, Mouth, and Throat: TM are clear, no nasal mucosal hypertrophy. Oral mucosa is moist, no posterior oropharynx erythema, uvula is mid-line Cardiovascular: Regular Rate and Rhythm without murmur, gallop or rub. Respiratory: No accessory muscle use or respiratory distress. Lungs are clear to auscultation, no wheezing, rales or rhonchi Chest Wall: no tenderness Back: No midline thoracic or lumbar vertebral tenderness. No CVA tenderness Musculoskeletal: normal ROM, no calf or popliteal tenderness, no lower extremity edema/swelling GI: Abdomen is soft, non-distended. Normal bowel sounds. No masses appreciated. No tenderness to palpation. No rebound, guarding, or rigidity noted. Rectal examination showed that the patient have a very small hemorrhoid that is not actively bleeding and almost 3 mm at 6:00. The patient have a positive blood test on examination by visualizing fresh blood on rectal exam, no tenderness on examination Neurological: A&O x4. No cranial nerve dysfunction observed. No truncal ataxia. Moves all extremities. Sensation intact. Psychiatric: Cooperative and interactive. Normal mood and affect. Constitutional Vital Signs, click to edit/add: Last Vital Signs Temp 98.6 F 02/26/24 08:13 Pulse 90 02/26/24 08:13 Resp 18 02/26/24 08:13 BP 146/88 H 02/26/24 08:23 Pulse Ox 98 02/26/24 08:13 O2 Del Method Room Air 02/26/24 08:13 Course Vital Signs Vital signs: Vital Signs Temperature 98.6 F 02/26/24 08:13 Pulse Rate 90 02/26/24 08:13 Respiratory Rate 18 02/26/24 08:13 Pulse Oximetry 98 02/26/24 08:13 Oxygen Delivery Method Room Air 02/26/24 08:13 Temperature 98.6 F 02/26/24 08:13 Pulse Rate 90 02/26/24 08:13 Respiratory Rate 18 02/26/24 08:13 Blood Pressure 146/88 H 02/26/24 08:23 Pulse Oximetry 98 02/26/24 08:13 Oxygen Delivery Method Room Air 02/26/24 08:13 MDM - GI Bleed MDM Narrative Medical decision making narrative: EKG showing sinus rhythm with a heart rate of [address] elevation or depression The patient CBC shows some leukocytosis but she is presenting initially with only lower GI bleed CBC and chemistry showed no drop in hemoglobin and it was mostly concentrated with hemoglobin of 11 and baseline usually is 9 The patient also had hyponatremia which mostly secondary to dehydration as well no acute kidney injury but the lactic acid was above 3 Patient was started IV fluid and she also was started on sepsis protocol with IV fluids according to her weight-based 30 cc/kg and also after the CAT scan showed possible diverticulitis the patient was started on Cipro and Flagyl The patient had no significant bleeding at the moment and it could be secondary to diverticulitis Patient will be admitted for further management of diverticulitis with IV fluids and hydration and antibiotic The patient case was discussed with and he agreed with above-mentioned plan Lab Data Labs: Lab Results 02/26/24 02/26/24 Range/Units 08:35 10:22 WBC 16.2 H (4.0-11.0) 10^3/uL RBC 4.48 (4.20-5.40) 10^6/uL Hgb 11.9 L (12.0-16.0) g/dL Hct 36.3 (36.0-48.0) % MCV 81.0 (81.0-99.0) fL MCH 26.6 L (26.7-34.0) pg MCHC 32.8 (29.9-35.2) g/dL RDW 20.2 H (11.0-15.0) % Plt Count 297 (150-450) 10^3/uL MPV 8.8 L (9.5-13.5) fL Neut % (Auto) 85.9 H (43.0-75.0) % Lymph % (Auto) 8.9 L (20.5-60.0) % Crowley % (Auto) 4.7 (1.7-12.0) % Eos % (Auto) 0.1 L (0.9-7.0) % Baso % (Auto) 0.1 L (0.2-2.0) % Neut # (Auto) 13.9 H (1.4-6.5) 10^3/uL Lymph # (Auto) 1.5 (1.2-3.8) 10^3/uL Crowley # (Auto) 0.8 (0.3-0.8) 10^3/uL Eos # (Auto) 0.0 (0.0-0.7) 10^3/uL Baso # (Auto) 0.0 (0.0-0.1) 10^3/uL Abs Immat Gran (auto) 0.05 H (0.00-0.03) 10^3/uL Imm/Tot Granulo (auto) 0.3 (0.0-0.5) % PT 10.4 (9.0-11.6) sec INR 0.98 Sodium 126 L (136-145) mmol/L Potassium 3.6 (3.5-5.1) mmol/L Chloride 90 L (98-107) mmol/L Carbon Dioxide 26.0 (21.0-32.0) mmol/L Anion Gap 13.6 BUN 6.0 L (7.0-18.0) mg/dL Creatinine 0.70 (0.55-1.02) mg/dL Est GFR ( Amer) >60 (>=60) Est GFR (Non-Af Amer) >60 (>=60) BUN/Creatinine Ratio 8.6 Glucose 205 H (74-106) mg/dL Lactate 3.3 H* (0.4-2.0) mmol/L Calcium 8.3 L (8.5-10.1) mg/dL Total Bilirubin 0.6 (0.2-1.0) mg/dL AST 16 (15-37) U/L ALT 13 L (14-59) U/L Alkaline Phosphatase 109 (46-116) U/L Troponin I High Sens 8.4 (4.0-51.3) pg/mL Total Protein 7.2 (6.4-8.2) g/dL Albumin 3.3 L (3.4-5.0) g/dL Globulin 3.9 g/dL Albumin/Globulin Ratio 0.8 Urine Color Lt. yellow (YELLOW) Urine Clarity Clear (CLEAR) Urine pH 6.0 (5.0-9.0) Ur Specific [place] <=1.005 A (1.005-1.025) Urine Protein Negative (NEG/TRACE) mg/dL Urine Glucose (UA) 250 A (NEGATIVE) mg/dL Urine Ketones Negative (NEGATIVE) mg/dL Urine Occult Blood Small A (NEGATIVE) Urine Nitrite Negative (NEGATIVE) Urine Bilirubin Negative (NEGATIVE) Urine Urobilinogen 0.2 (0.2-1.0) EU/dL Ur Leukocyte Esterase Negative (NEGATIVE) Urine RBC 0-2 (0-2) #/HPF Urine WBC 0-2 A (NONE SEEN) #/HPF Ur Squamous Epith Cells Rare (NONE/RARE) #/LPF Urine Crystals None seen (None Seen) #/HPF Urine Bacteria Trace A (NONE SEEN) #/HPF Urine Casts None seen (NONE SEEN) #/LPF Urine Mucus None seen (NONE SEEN) Ur Culture Indicated? No Blood Type A Positive Antibody Screen Negative Discharge Plan Discharge Chief Complaint: Abdominal Pain Clinical Impression: Acute diverticulitis Patient Disposition: Admitted As Inpatient Time of Disposition Decision: 10:45
[2024-02-26 08:48] LABS: Basophils Percent Auto 0.1 % (0.2-2.0); Eosinophils Percent Auto 0.1 % (0.9-7.0); Hematocrit 36.3 % (36.0-48.0); Hemoglobin 11.9 g/dL (12.0-16.0); Immature Granulocytes Abs Auto 0.05 10^3/uL (0.00-0.03); Immature Granulocytes Pct Auto 0.3 % (0.0-0.5); Lymphocytes Absolute Auto 1.5 10^3/uL (1.2-3.8); Lymphocytes Percent Auto 8.9 % (20.5-60.0); Mean Corpuscular HGB Conc 32.8 g/dL (29.9-35.2); Mean Corpuscular Hemoglobin 26.6 pg (26.7-34.0); Mean Platelet Volume 8.8 fL (9.5-13.5); Monocytes Absolute Auto 0.8 10^3/uL (0.3-0.8); Monocytes Percent Auto 4.7 % (1.7-12.0); Neutrophils Absolute Auto 13.9 10^3/uL (1.4-6.5); Neutrophils Percent Auto 85.9 % (43.0-75.0); Platelet Count 297 10^3/uL (150-450); Red Blood Count 4.48 10^6/uL (4.20-5.40); Red Cell Distribution Width 20.2 % (11.0-15.0); White Blood Count 16.2 10^3/uL (4.0-11.0)
[2024-02-26] MEDS: 0.9 % SODIUM CHLORIDE 1,000 ML 1000 ML IV (08:48)
[2024-02-26 08:56] LABS: INR 0.98; Prothrombin Time 10.4 sec (9.0-11.6)
[2024-02-26 09:06] LABS: Alanine Aminotransferase 13 U/L (14-59); Albumin Globulin Ratio 0.8; Albumin Level 3.3 g/dL (3.4-5.0); Alkaline Phosphatase 109 U/L (46-116); Anion Gap 13.6; Aspartate Amino Transferase 16 U/L (15-37); BUN Creatinine Ratio 8.6; Bilirubin Total 0.6 mg/dL (0.2-1.0); Calcium 8.3 mg/dL (8.5-10.1); Chloride 90 mmol/L (98-107); Estimated GFR (African America >60 (>=60); Estimated GFR (Non-African Ame >60 (>=60); Globulin 3.9 g/dL; Glucose 205 mg/dL (74-106); Potassium 3.6 mmol/L (3.5-5.1); Sodium 126 mmol/L (136-145); Total Protein 7.2 g/dL (6.4-8.2); Troponin I High Sensitivity 8.4 pg/mL (4.0-51.3)
[2024-02-26 09:09] LABS: Lactate/Lactic Acid 3.3 mmol/L (0.4-2.0)
[2024-02-26 10:30] LABS: Bilirubin Urine NEGATIVE (NEGATIVE); Blood Urine SMALL (NEGATIVE); Clarity Urine CLEAR (CLEAR); Color Urine LT. YELLOW (YELLOW); Glucose Urine UA 250 mg/dL (NEGATIVE); Ketones Urine NEGATIVE (NEGATIVE); Leukocyte Esterase Urine NEGATIVE (NEGATIVE); Nitrite Urine NEGATIVE (NEGATIVE); Protein Urine NEGATIVE (NEG/TRACE); Specific Gravity Urine <=1.005 (1.005-1.025); Urobilinogen Urine 0.2 EU/dL (0.2-1.0)
[2024-02-26 10:40] LABS: Urine Microscopic Indicated YES
[2024-02-26 10:47] LABS: RBC Urine 0-2 #/HPF (0-2); WBC Urine 0-2 #/HPF (NONE SEEN)
[2024-02-26 10:48] LABS: Bacteria Urine TRACE #/HPF (NONE SEEN); Cast Seen? NONE SEEN #/LPF (NONE SEEN); Crystals Seen? None Seen #/HPF (None Seen); Mucus Urine NONE SEEN (NONE SEEN); Squamous Epithelial Cell Urine RARE #/LPF (NONE/RARE); Urine Culture Indicated NO
[2024-02-26] MEDS: SODIUM CHLORIDE 635.029999999999973 ML IV (11:08)
[2024-02-26] MEDS: METRONIDAZOLE/SODIUM CHLORIDE 500 MG/100 ML PREMIX 100 MG IV ×2 (11:09→20:57)
--- OUTSIDE RECORDS SUMMARY | 2024-02-26 11:57 | XMS_ITS ---
Patient Summarization (C-CDA 2.1 CCD) Created on: February 26, 2024 RODRIGUE WALLACE : 1950 Sex: Female Author Organization Sample organization Care Team Providers Care Healthcare Interpreter Name Role Phone PHYSICIAN, DEFAULT Unavailable Unavailable [...] Care Unavailable JACK, DR JERONIMO Consulting Unavailable DEARBORN, DR JERAMY Martinez Consulting Unavailable TRUE COELLO Consulting Unavailable Howard Santiago II Primary Care Provider [phone] ARACELI NATHAN Attending Unavailable SPRING HUNTER Referring Unavailable HOWARD SANTIAGO II Primary Care Unavailable ARACELI NATHAN Attending Unavailable ARACELI NATHAN Referring Unavailable OHWARD SANTIAGO II Primary Care Unavailable Howard Santiago [...] [PENICILLINS] Drug allergy (disorder) 06-28-20 05 [facility] Repository (1 source) No Known Allergies; Translations: [No Known Allergies] Propensity to adverse reactions (disorder) [facility] Repository (1 source) Penicillin; Translations: [penicillin] Drug Allergy [facility] Repository (8 sources) Alendronate; Translations: [ALENDRONATE SODIUM] Drug Allergy 11-08-19 15 Other: See Comments [facility] Work Phone: (8 sources) Nitrofurantoin; Translations: [NITROFURANTOIN MACROCRYSTAL] Drug Allergy 05-23-20 16 Vomiting [facility] (1 source) Penicillins Propensity to adverse reactions 06-28-20 05 Itching [facility] (6 sources) Penicillins Propensity to adverse reactions 06-28-20 05 Itching [facility] (1 source) Acetaminophen / oxyCODONE Drug Allergy 01-29-20 23 Rash [facility] (1 source) Alendronate Drug Allergy 11-08-19 15 Other [facility] (1 source) hydroCHLOROthiazide Drug Allergy 01-29-20 23 [facility] Healthcare (1 source) Nitrofurantoin Drug Allergy 01-29-20 23 [facility] Healthcare (1 source) Penicillin G Drug Allergy 01-29-20 23 Hives [facility] Healthcare (1 source) tamsulosin Drug Allergy 02-20-20 23 [facility] Encounters Encounter Date Encounter Type Care Provider Facility Start: 02-18-2024 End: 02-18-2024 ambulatory HOWARD SANTIAGO Not Available Start: 01-19-2024 End: 01-19-2024 Patient encounter procedure Amparo Martinez APRN.[facility] Work Phone: [facility] Comment on above: [...] Work Phone: Endocrinology Comment on above: Forms ([employer]) Start: 12-05-2022 Telephone encounter Spring Hunter MD Work Phone: Endocrinology Comment on above: Patient Update (Marilee ra) Start: 11-06-2022 Telephone encounter Spring Hunter MD Work Phone: Endocrinology Comment on above: Forms ([employer]) Start: 09-20-2022 End: 09-21-[address] HOWARD SANTIAGO Facility:[facility] Start: 07-04-2022 Telephone encounter Spring Hunter MD Work Phone: Endocrinology Comment on above: Patient Update (Diab etes Management & Supplies) Start: 04-26-2022 End: 04-26-2022 ambulatory ARACELI NATHAN Facility:[facility] Start: 04-26-2022 End: 04-26-2022 Patient encounter procedure Araceli Nathan COMBATANT DIVER OFFICER.[employer]ODUCTS VIEW[employer] Work Phone: Endocrinology Comment on above: 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); Insulin pump status; Insulin pump titration; FPC (current) use of insulin (HCC) Start: 03-19-2022 End: 03-20-[address] HOWARD SANTIAGO Facility:[facility] Start: 01-01-2022 End: 01-01-2022 ambulatory ARACELI NATHAN Facility:[facility] Start: 01-01-2022 Telephone encounter Araceli conley COMBATANT DIVER OFFICER.[employer]ODU[employer] VIEWER Work Phone: Endocrinology Comment on above: Dexcom Start: 08-20-2018 End: 08-21-2018 Patient encounter procedure HOWARD SANTIAGO [place] Start: 06-25-2018 End: 06-26-2018 Patient encounter AYLEEN HICKEY Facility:[facility] Start: 06-15-2018 End: 06-17-2018 Evaluation and management of inpatient BRYCE MARIANGEL Facility:[facility] Start: 06-15-2018 End: 06-16-2018 Patient encounter DEFAULT PHYSICIAN Facility:[facility] Start: 06-10-2018 End: 06-11-2018 Patient encounter DEFAULT PHYSICIAN Facility:[facility] Medical Equipment Procedure Code Equipment Code Equipment Original Text Equipment Identifier Dates [id number] Start: 11-04-2013 Comment on above: One touch ultra blue test strips, insulin pump, iddm, 250.00, tests 5 x daily. Wire Kait .045in Stainless Steel 4in Fixation 2 [place] End - [id number] Start: 11-02-2015 [id number], [id number], [id number], [id number], [id number] Start: 04-10-2021 End: 01-19-2024 Comment on above: USE TO TEST BLOOD PRETTY GARS 5 TIMES DAILY Use as directed four times daily for insulin injections in case of pump failure Dx: E10.649 Use to test blood pretty gar 8 times daily One touch ultra blue test strips, insulin pump, iddm, 250.00, tests 5 x daily. [id number] Start: 11-04-2013 End: 01-19-2024 Immunizations Immunization Date Immunization Notes Care Provider Byron mix 07-23-2023 Influenza, High-dose Seasonal, Quadrivalent, Preservative Free Jayashree Friday MEDICAL RECORDS TECH Work Phone: [facility] 08-13-2022 influenza, high dose seasonal, preservative-free Jayashree Friday MEDICAL RECORDS TECH Work Phone: [facility] 06-13-2022 Moderna Bivalent Alvarado ster Vaccination Jayashree Friday MEDICAL RECORDS TECH Work Phone: [facility] 06-12-2021 influenza, high-dose , quadrivalent vaccine (FLUZONE HIGH DOSE QUADRIVALENT) Araceli Nathan COMBATANT DIVER OFFICER.MET[employer]ODUCTS VIEWER Work Phone: [facility] 07-30-2020 zoster vaccine recombinant Jayashree Friday MEDICAL RECORDS TECH Work Phone: [facility] 07-18-2020 influenza, high-dose , quadrivalent vaccine (FLUZONE HIGH DOSE QUADRIVALENT) Araceli Nathan APRN.[employer] VIEWER Work Phone: [facility] 07-20-2019 Influenza, injectabl e, Madin Aleja Canine Kidney, quadrivalent with preservative Jayashree Friday MEDICAL RECORDS TECH Work Phone: [facility] 07-08-2018 Influenza, High-dose Seasonal, Quadrivalent, Preservative Free Jayashree Friday MEDICAL RECORDS TECH Work Phone: [facility] 07-04-2017 pneumococcal polysaccharide vaccine, 23 valent Jayashree Friday MEDICAL RECORDS TECH Work Phone: [facility] 06-16-2017 Influenza, High-dose Seasonal, Quadrivalent, Preservative Free Jayashree Friday MEDICAL RECORDS TECH Work Phone: [facility] 07-30-2016 influenza, injectabl e, quadrivalent, preservative free Jayashree Friday MEDICAL RECORDS TECH Work Phone: [facility] 07-01-2016 influenza, high dose seasonal, preservative-free Araceli Nathan COMBATANT DIVER OFFICER.MET[employer] PRODU[employer] VIEWER Work Phone: [facility] 03-11-2016 pneumococcal conjuga te vaccine, 13 valent Jayashree Friday MEDICAL RECORDS TECH Work Phone: [facility] 01-22-2016 pneumococcal conjuga te vaccine, 13 valent Jayashree Friday MEDICAL RECORDS TECH Work Phone: [facility] 07-05-2014 seasonal influenza, intradermal, preservative free Jayashree Friday MEDICAL RECORDS TECH Work Phone: [facility] 07-23-2013 pneumococcal polysaccharide vaccine, 23 valent Jayashree Friday MEDICAL RECORDS TECH Work Phone: [facility] 07-07-2013 zoster vaccine, live Jayashree M MEDICAL RECORDS TECH Work Phone: [facility] 09-04-2012 zoster vaccine, live Araceli Nathan COMBATANT DIVER OFFICER.[employer]ODU[employer] VIEWER Work Phone: [facility] 08-03-2012 pneumococcal polysaccharide vaccine, 23 valent Araceli Jac COMBATANT DIVER OFFICER.[employer]ODUCTS VIEWER Work Phone: [facility] 06-28-2005 pneumococcal polysaccharide vaccine, 23 valent Araceli Jac COMBATANT DIVER OFFICER.[employer] VIEWER Work Phone: [facility] Medications Current Medications Medication Drug Class(es) Dates Sig (Normalized) Sig (Original) acetaminophen 325 mg / HYDROcodone bitartrate 10 mg oral tablet (9 sources) Opioid Agonist Start: 10-06-2023 End: 12-05-2023 take 1 tablet by mouth every six hours for pain HYDROcodone-aceta minophen ([place]) 10-325 MG tablet Indications: Pain , M15.0 Take 1 tablet by mouth every 6 (six) hours if needed for moderate pain 120 tablet 0 11/05/2023 12/05/2023 Active Start: 12-05-2014 HYDROcodone-ac etaminophen (NORCO) 5-325 mg per tablet Take one-two tablets every six hours as needed for pain 0 12/05/2014 Active Comment on above: Take one-two tablets every six hours as needed for pain [id number] 200 actuat albuterol 0.09 mg/actuat metered dose [...] on above: Take 1 capsule by mo [facility] once daily. 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) , Insulin pump status USE TO TEST BLOOD SUGARS 5 TIMES DAILY 1 Each 0 01/01/2022 Active Start: 01-01-2022 End: 01-01-2022 Blood-Glucose Meter,Continuo us (DEXCOM G6 MANAGER STUDIO) misc Indications: 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 2015 Private Health Insurance [id number] 2004 Medicare [id number] 2004 Medicare [id number]. [id number] 1959 Medicare [id number] 1959 Unknown [id number] 1950 Unknown [id number] 2.16.840.1.992922.3.579. 2.647 1950 Unknown [id number] 2.16.840.1.067388.3.579. 2.647 1950 Unknown [id number] 2.16.840.1.418250.3.579. 2.647 1950 Unknown [id number] 2.16.840.1.191024.3.579. 2.647 1950 Unknown [id number] 2.16.840.1.616858.3.579. 2.727 1950 Unknown [id number] 2.16.840.1.676579.3.579. 2.593 1950 Unknown [id number] 2.16.840.1.652252.3.579. 2.593 1950 Unknown [id number] 2.16.840.1.449817.3.579. 2.1259 1950 Unknown [id number] 2.16.840.1.543596.3.579. 2.1259 1950 Unknown [id number] 2.16.840.1.052773.3.579. 2.1259 1950 Unknown [id number] 2.16.840.1.635240.3.579. 2.1259 1950 Unknown [id number] 2.16.840.1.015328.3.579. 2.1259 1950 Unknown [id number] 2.16.840.1.625722.3.579. 2.1259 Medicare [id number] Unknown Plan of Treatment Date Care Activity Detail Author Start: 06-30-2027 Screening for malignant neoplasm of colon [facility] Start: 12-30-2024 Hepatitis B surface antibody level LDL Cholesterol [facility] Start: 10-24-2024 Glaucoma screening Diabetes: Retinopathy Screening [facility] Start: 10-09-2024 Urine screening for protein Diabetes: Urine Protein Screening [facility] Start: 07-16-2024 End: 07-16-2024 Patient encounter procedure 07/16/2024 10:20 AM EDT Office Visit [facility] [address] [place] [phone] Nakia Steele MD [address] [place] [address] [facility] Start: 07-06-2024 Hemoglobin A1c measurement HbA1C [facility] Start: 02-27-2024 End: 02-27-2024 Patient encounter procedure 02/27/2024 8:00 AM EDT Appointment [facility] [place] [address] [place] [phone] Sandy Cristobal I, MD [address] [place] [address] [facility] [place] Start: 01-19-2024 End: 04-19-2024 CELIAC SCREEN WITH REFLEX CELIAC SCREEN WITH REFLEX Lab Routine Iron deficiency anemia, unspecified iron deficiency anemia type Expected: 01/19/2024, Expires: 04/19/2024 [facility] [place] Work Phone: Comment on above: Expected: 01/19/2024, Expires: Start: 01-12-2024 Hemoglobin A1c measurement Diabetes: Hemoglobin A1C [facility] Start: 01-12-2024 End: 01-12-2024 Patient encounter procedure [facility] Start: 09-22-2023 Advance Directive Discussion Advance Directive Discussion [facility] Start: 09-22-2023 Behavioral Health Screening Behavioral Health Screening [facility] Start: 05-23-2023 Covid-19 Vaccine () Covid-19 Vaccine () [facility] Start: 10-27-2022 Hemoglobin A1c/Hemoglobin.total in Blood HBA1C [facility] Start: 09-22-2022 ADVANCE DIRECTIVE DISCUSSION ADVANCE DIRECTIVE DISCUSSION [facility] Start: 09-22-2022 DEPRESSION ASSESSMENT DEPRESSION ASSESSMENT [facility] Start: 07-03-2022 Hemoglobin A1c/Hemoglobin.total in Blood HBA1C [facility] Start: 06-30-2022 Colonoscopy COLONOSCOPY [facility] Start: 06-30-2022 COLORECTAL CANCER SCREENING COLORECTAL CANCER SCREENING [facility] Start: 06-30-2022 Screening for malignant neoplasm of colon [facility] Start: 06-26-2022 End: 08-26-2022 ALBUMIN/CREAT RATIO RND UR ALBUMIN/CREAT RATIO RND UR Lab Routine 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) Expected: 06/26/2022, Expires: 08/26/2022 [facility] Work Phone: Comment on above: Expected: 06/26/2022, Expires: 2 Start: 06-26-2022 End: 08-26-2022 Comprehensive metabolic 2000 panel - Serum or Plasma COMP METABOLIC PANEL Lab Routine 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) Expected: 06/26/2022, Expires: 08/26/2022 [facility] Work Phone: Comment on above: Expected: 06/26/2022, Expires: 2 Start: 06-26-2022 End: 08-26-2022 Lipid 1996 panel - Serum or Plasma LIPID PANEL BASIC Lab Routine 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) Expected: 06/26/2022, Expires: 08/26/2022 [facility] Work Phone: Comment on above: Expected: 06/26/2022, Expires: 2 Start: 06-07-2022 Hepatitis B screening URINE ALBUMIN:CREATININE RATIO [facility] Start: 06-07-2022 Hepatitis B surface antibody level LDL CHOLESTEROL [facility] Start: 05-23-2022 Influenza vaccination INFLUENZA (#1) [facility] Start: 04-01-2022 Hemoglobin A1c/Hemoglobin.total in Blood HBA1C [facility] Start: 12-27-2021 COVID-19 VACCINE (4 - Booster for Moderna series) COVID-19 VACCINE (4 - Booster for Moderna series) [facility] Start: 10-23-2021 COVID-19 VACCINE (4 - Booster for Moderna series) COVID-19 VACCINE (4 - Booster for Moderna series) [facility] Start: 09-22-2021 ADVANCE DIRECTIVE DISCUSSION ADVANCE DIRECTIVE DISCUSSION [facility] Start: 09-22-2021 DEPRESSION ASSESSMENT DEPRESSION ASSESSMENT [facility] Start: 09-24-2020 Shingrix Vaccine (3 of 3) Shingrix Vaccine (3 of 3) [facility] Start: 08-03-2017 PNEUMOVAX AGE 65 AND OVER WITH 5YR LOOKBACK (#1) PNEUMOVAX AGE 65 AND OVER WITH 5YR LOOKBACK (#1) [facility] Start: 05-23-2017 3 comp foot exam completed DIABETIC FOOT EXAM [facility] Start: 05-23-2017 Diabetic foot examination Diabetic Foot Exam [facility] Start: 05-23-2017 Mammography MAMMOGRAM [facility] Start: 05-23-2017 Screening for malignant neoplasm of breast Mammogram Screening [facility] Start: 02-20-2017 Glaucoma screening Dilated Retinal Exam [facility] Start: 02-20-2017 Hepatitis C antibody, confirmatory test DILATED RETINAL EXAM [facility] Start: 08-03-2013 PNEUMOCOCCAL: 65+ (2 - PCV) PNEUMOCOCCAL: 65+ (2 - PCV) [facility] Start: 10-30-2012 SHINGRIX VACCINE (2 of 3) SHINGRIX VACCINE (2 of 3) [facility] Start: 2011 RSV Vaccine (1 - 1-dose 60+ series) RSV Vaccine (1 - 1-dose 60+ series) [facility] Start: 02-02-1996 COLOGUARD (FIT-DNA) COLOGUARD (FIT-DNA) [facility] Start: 02-02-[address] COLONOGRAPHY [facility] Start: 02-02-1996 FECAL OCCULT BLOOD FECAL OCCULT BLOOD [facility] Start: 02-02-1996 Screening for malignant neoplasm of colon [facility] Start: 02-02-1996 SIGMOIDOSCOPY SIGMOIDOSCOPY [facility] Start: 1991 Screening for malignant neoplasm of breast Mammogram [facility] Start: 1970 Urine microalbumin profile [facility] Start: 1969 ANNUAL PCP TEAM CHRONIC DISEASE VISIT ANNUAL PCP TEAM CHRONIC DISEASE VISIT [facility] Start: 1963 Adult depression screening assessment DEPRESSION SCREENING [facility] Start: 1950 Screening for malignant neoplasm of colon [facility] End: 01-18-2025 EGD DIAGNOSTIC EGD DIAGNOSTIC Endoscopy Routine Iron deficiency anemia, unspecified iron deficiency anemia type Hiatal hernia 1 Occurrences starting 01/19/2024 until 01/18/2025 [facility] Comment on above: 1 Occurrences starting 01/19/2024 until 01/18/2025 Hemoglobin A1c/Hemoglobin.total in Blood HEMOGLOBIN A1C (POC) Lab Routine 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 Active Problems Problem Classification [...] 06-15-2018 01-28-2023 Chronic Other aftercare (1 source) FPC (current) use of aspirin; Translations: [JAIL (CURRENT) USE OF ASPIRIN] Onset: 06-25-2018 Episodic Other aftercare (1 source) FPC (current) use of insulin; Translations: [JAIL (CURRENT) USE OF INSULIN] Onset: 06-25-2018 Episodic [...] sources) Long-term current use of insulin; Translations: [FPC (current) use of insulin] Onset: 0 Resolved: [...] Performing Clinician Start: 06-30-2017 Colonoscopy Araceli conley APRN.[employer] Work Phone: Start: 05-23-2016 Mammography Araceli conley APRN.CNP Work Phone: Results Test Name Value Interpretation Reference Range [facility] 12-11-2022 [facility] Telephone (ENDOL[facility]) -------- RODRIGUE WALLACE ([id number]) 1950 F Date Time Provider Department 12/11/22 SPRING HUNTER During your visit today, we recorded the following information about you: Mj Krueger MA 12/11/2022 4:30 PM Signed Received a fax from [employer] requesting C Peptide and Fasting glucose under 225 mg/dl done on the same day and A1C. Printed labs from 01/05/2003 and and printed A1C's from 01/27/13 AND 04/26/22, faxed to [phone]. Confirmation received. Allergies As of Date: 12/11/2022 Noted Allergy Reaction FOSAMAX (ALENDRONATE SODIUM) 11/08/2014 14 - Other: See Comments Comments: Leg cramps, severe MACRODANTIN (NITROFURANTOIN MACRO*05/23/2016 11 - Vomiting PENICILLINS 06/28/2005 9 - Itching Date Reviewed: 04/26/2022 Reviewed by: Araceli Nathan APRN.[employer] V[employer] - Fully Assessed Reason for Visit: Forms [703] Cmt: [employer] Prescriptions as of 12/11/2022 - amLODIPine (NORVASC) 10 mg tablet - gabapentin (NEURONTIN) 100 mg capsule - NOVOLOG U-100 INSULIN ASPART 100 unit/mL Use via insulin pump, 30 units daily - Blood-Glucose Meter,Continuous (DEXCOM G6 MANAGER STUDIO) misc USE TO TEST BLOOD SUGARS 5 [...] Encounter Status:Closed by MJ KRUEGER on 12/11/22 [facility] Efrain 12-05-2022 CNPN Telephone (ENDOLN) -------- RODRIGUE WALLACE ([id number]) 1950 F Date Time Provider Department 12/05/22 SPRING HUNTER ENDOLN During your visit today, we recorded the following information about you: Mj Krueger MA 12/05/2022 4:11 PM Signed Received a fax from [employer] requesting copy of patient labs for C Peptide and fasting glucose. Faxed results, Confirmation received. Allergies As of Date: 12/05/2022 Noted Allergy Reaction FOSAMAX (ALENDRONATE SODIUM) 11/08/2014 14 - Other: See Comments Comments: Leg cramps, severe MACRODANTIN (NITROFURANTOIN MACRO*05/23/2016 11 - Vomiting PENICILLINS 06/28/2005 9 - Itching Date Reviewed: 04/26/2022 Reviewed by: Araceli Nathan APRN.[employer] VIEWER - Fully Assessed Reason for Visit: Patient Update [1234] Cmt: Jennya Prescriptions as of 12/05/2022 - amLODIPine (NORVASC) 10 mg tablet - gabapentin (NEURONTIN) 100 mg capsule - NOVOLOG U-100 INSULIN ASPART 100 unit/mL Use via insulin pump, 30 units daily - Blood-Glucose Meter,Continuous (DEXCOM G6 MANAGER STUDIO) misc USE TO TEST BLOOD SUGARS 5 [...] (SOMA ORAL) Take by mouth. - Lancets (Estore[employer]TOUCH ULTRASOFT LANCETS) lancets Use to test blood [...] Encounter Status:Closed by [facility]J [facility]GER [facility]05[facility] RHEAN Telephone (ENDOLN) -------- RODRIGUE WALLACE ([id number]) 1950 F Date Time Provider Department 11/06/22 SPRING HUNTER ENDOLN During your visit today, we recorded the following information about you: Mj Krueger MA 11/06/2022 1:49 PM Signed Received a form from [facility] for CGM and Pump supplies. Requesting last office notes within last 6 months. Printed notes from 04/26/22. Faxed completed form and notes. Confirmation received. Allergies As of Date: 11/06/2022 Noted Allergy Reaction FOSAMAX (ALENDRONATE SODIUM) 11/08/2014 14 - Other: See Comments Comments: Leg cramps, severe MACRODANTIN (NITROFURANTOIN MACRO*05/23/2016 11 - Vomiting PENICILLINS 06/28/2005 9 - Itching Date Reviewed: 04/26/2022 Reviewed by: Araceli Nathan APRN.[facility] - Fully Assessed Reason for Visit: Forms [913] Cmt: [facility] [employer] Prescriptions as of 11/06/2022 - amLODIPine (NORVASC) 10 mg tablet - gabapentin (NEURONTIN) 100 mg capsule - NOVOLOG U-100 INSULIN ASPART 100 unit/mL Use via insulin pump, 30 units daily - Blood-Glucose Meter,Continuous (DEXCOM G6 MANAGER STUDIO) misc USE TO TEST BLOOD SUGARS 5 [...] Status:Closed by MJ KRUEGER on 11/06/22 Normal [facility] LIPID PROFILEon 09-20-2022 CHOL-HDL RATIO NORM SEE BELOW Normal [place] Comment on above: Result Comment: 3.3 - 4.4 LOW RISK 4.4 - 7.1 AVERAGE RISK 7.1 - 11.0 MODERATE RISK >11.0 HIGH RISK Performed By: #### L IPID #### [facility] [address] [address] [address] Vera Leggett Cholesterol [Mass/Vol] 152 mg/dL Normal <=200 [facility] Comment on above: Performed By: #### L IPID #### [facility] [address] [address] [address] Vera Leggett Cholesterol in HDL [Mass/Vol] 104 mg/dL Critically high 40-60 [place] Comment on above: Performed By: #### L IPID #### [facility] [address] [address] [address] Vera Leggett Cholesterol in LDL [Mass/Vol] 34.4 mg/dL Normal [place] Comment on above: Performed By: #### L IPID #### [facility] [address] [address] [address] Vera Leggett Cholesterol.total/ Cholesterol in HDL [Mass ratio] 1.5 {ratio} Normal [place] Comment on above: Performed By: #### L IPID #### [facility] [address] [address] [address] Vera Leggett HDL NORMAL > or = 60 mg/dl - LO W CARDIOVASCULAR RISK <40 mg/dl - HIGH CARDIOVASCULAR RISK Normal [place] Comment on above: Performed By: #### L IPID #### [facility] [address] [address] [address] Vera Leggett LDL CALC NORMAL SEE BELOW Normal [facility] Comment on above: Result Comment: <100 mg/dl OPTIMAL 100 - 129 mg/dl NEAR OR ABOVE OPTIMAL 130 - 159 mg/dl BORDERLINE HIGH 160 - 189 mg/dl HIGH >190 mg/dl VERY HIGH Performed By: #### L IPID #### [facility] [address] [address] [address] Vera Leggett Triglyceride [Mass/Vol] 68 mg/dL Normal <=150 [facility] Comment on above: Performed By: #### L IPID #### [facility] [address] [address] [address] Vera Leggett VLDL CALC 13.6 mg/dL Normal [place] Comment on above: Performed By: #### L IPID #### [facility] [address] [address] [address] Vera Zuniga 07-04-2022 CNPN Telephone (ENDOLN) -------- RODRIGUE WALLACE ([id number]) 1950 F Date Time Provider Department 07/04/22 [facility] END[facility] During your visit today, we recorded the following information about you: Mj Krueger MA 07/04/2022 1:22 PM Signed Received a fax from [facility] requesting last 2 office notes. Faxed notes from 09/26/21 and 04/26/22 to [phone]. Confirmation received. Allergies As of Date: 07/04/2022 Noted Allergy Reaction FOSAMAX (ALENDRONATE SODIUM) 11/08/2014 14 - Other: See Comments Comments: Leg cramps, severe MACRODANTIN (NITROFURANTOIN MACRO*05/23/2016 11 - Vomiting PENICILLINS 06/28/2005 9 - Itching Date Reviewed: 04/26/2022 Reviewed by: Araceli Nathan APRN.[facility] - Fully Assessed Reason for Visit: Patient Update [1234] Cmt: [facility] Prescriptions as of 07/10/2022 - amLODIPine (NORVASC) 10 mg tablet - gabapentin (NEURONTIN) 100 mg capsule - NOVOLOG U-100 INSULIN ASPART 100 unit/mL Use via insulin pump, 30 units daily - Blood-Glucose Meter,Continuous (DEXCOM G6 MANAGER STUDIO) misc USE TO TEST BLOOD SUGARS 5 [...] Encounter Status:Closed by MJ KRUEGER on 07/10/22 [facility] CNOVon 04-26-2022 CNOV Office Visit (ENDOLN ) -------- RODRIGUE WALLACE ([id number]) 1950 F Date Time Provider Department 04/26/22 10:00 AM ARACELI NATHAN During your visit today, we recorded the following information about you: Pulse Blood pressure Weight Height 74/minute 126/84 72.1 kg 1.6 m Araceli Nathan APRN.METAL PRODUCTS VIEWER 04/26/2022 10:30 AM Signed 72yo WF with h/o DM1 since age 56, on Medtronic 670G pump in 09/2019, hypoglycemia unawareness, neuropathy, HTN, HLP, osteoporosis, here for f/u, followed by Dr. Hunter and I. At [facility] we increased carb ratio as she [...] Medication Sig - Blood-Glucose Meter,Continuous (DEXCOM G6 MANAGER STUDIO) misc USE TO TEST BLOOD SUGARS 5 [...] (SOMA ORAL) Take by mouth. - Lancets (EstoreifyTOUCH ULTRASOFT LANCETS) lancets Use to test blood [...] - Subcutaneous Insulin Pump (PARADIGM INSULIN PUMP) [facility] 523 Basal: 24:00- 00.35. 300-0.55; 0700-0.75 2300-0.375. [...] in t (more content not included)... Normal [facility] CT HEAD WO CONon 03-19-2022 CT HEAD [...] TRUE COELLO Date: 2022-03-19 16:05 Normal [facility] US CAROTID ART BILon 022 US CAROTID [...] by: JERAMY REYNA Date: 2022-03-19 17:01 Normal [place] CNOVon 01-01-2022 CNOV Office Visit (ENDOLN ) -------- RODRIGUE WALLACE ([id number]) 1950 F Date Time Provider Department 01/01/22 [...] Medication Sig - Blood-Glucose Meter,Continuous (DEXCOM G6 MANAGER STUDIO) misc USE TO TEST BLOOD SUGARS 5 [...] - Subcutaneous Insulin Pump (PARADIGM INSULIN PUMP) [facility] 523 Basal: 24:00- 00.35. 300-0.55; 0700-0.75 2300-0.375. [...] Tab Hai (more content not included)... Normal [facility] CNPNon 01-01-2022 CNPN Telephone (ENDOLN) -------- RODRIGUE WALLACE ([id number]) 1950 F Date Time Provider Department 01/01/22 ARACELI NATHAN ENDOCORRIE During your visit today, we recorded the following information about you: Mj Krueger MA 01/01/2022 1:42 PM Signed Call placed to [facility] to inquire for a form for Dexcom G6. [facility] states we can fax a prescription to : [phone] and they will send us what form [...] [E10.649] Insulin pump status [Z96.41] Order(s):Blood-Glucose Meter,Continuous (Recyclebank G6 MANAGER STUDIO) miscUSE TO TEST BLOOD SUGARS 5 TIMES DAILYDisp: 1 EachRfl: 0 Blood-Glucose Sensor (Recyclebank G6 SENSOR) deviUSE TO TEST BLOOD SUGARS 5 TIMES DAILYDisp: 3 EachRfl: 11 Blood-Glucose Transmitter (Recyclebank G6 TRANSMITTER) deviUSE TO TEST BLOOD SUGARS 5 TIMES DAILYDisp: 1 EachRfl: 3 Prescriptions as of 01/01/2022 - amLODIPine (NORVASC) 10 mg tablet - gabapentin (NEURONTIN) 100 mg capsule - NOVOLOG U-100 INSULIN ASPART 100 unit/mL Use via insulin pump, 30 units daily - Blood-Glucose Meter,Continuous (Recyclebank G6 MANAGER STUDIO) misc USE TO TEST BLOOD SUGARS 5 TIMES DAILY - Blood-Glucose Sensor (Recyclebank G6 SENSOR) shayy USE TO TEST BLOOD SUGARS 5 TIMES DAILY - Blood-Glucose Transmitter (Recyclebank G6 TRANSMITTER) shayy USE TO TEST BLOOD [...] Alkaline ref (more content not included)... Normal [facility] Q - CULTURE,URINE,ROUTINEon 11-13-2021 CULTURE, URINE, ROUTINE SEE NOTE Normal [facility] Program Development Specialist Comment on above: Order Comment: [facility] Testing performed at: QPT, [facility], [address], [address] [facility], [place], [address], Brick Picker: Félix Elder MD [facility] Collection Date/Time: [facility] Results Received Date/Time: [facility] Reported Date/Time: FASTING: UNKNOWN Result Comment: CULT URE, URINE, ROUTINE Micro Number: [id number] Test Status: Final Specimen Source: Urine Specimen Quality: Adequate Result: No Growth Performed By: #### 6 304R #### [facility] Default [address] [place] [address] LUMBAR SPINE 2 OR 3 VIEWSon 07-19-2021 LUMBAR SPINE 2 OR 3 VIEWS STUDY: LUMBAR SPINE 2 OR 3 VIEWS; 07/19/2021 12:04 pm INDICATION: PAIN. COMPARISON: None. ACCESSION NUMBER(S): [id number] ORDERING CLINICIAN: Katey Clark FINDINGS: Metallic interbody graft at L5-S1. Mild compression fractures at L1 and L2. Moderate compression fracture at L4. No spondylolisthesis. Multilevel facet arthropathy. IMPRESSION: Age-indeterminate compression fractures at L1, L2, and L4. Degenerative changes. L5-S1 fusion. Normal [facility] HISTORY PHYSICALon 9 HISTORY PHYSICAL HNO ID: [id number] Author: Haven Nixon (PacBARBARA Pisano Service: ? Author Type: Physician Graphics Production Specialist Type: HANDP Filed: 04/15/2019 8:46 AM Note [...] DAY Subcutaneous Insulin Pump (PARADIGM INSULIN PUMP) [facility] 523 Basal: 24:00- 00.35. 300-0.55; 0700-0.75 2300-0.375. [...] April 15, 2019 TIME: 8:45 AM PAGER: [phone] [facility] NURSING PROGon 04-15-2019 NURSING PROG HNO ID: [id number] Author: Lita (Rn) LAURA Wasserman Service: Nursing Author Type: Registered Nurse Type: Nursing Progress Note Filed: 04/15/2019 8:15 AM Note Text: PRE OP LEARNING ASSESSMENT PROCEDURE/SURGERY: EGD READINESS TO LEARN COGNITIVE ABILITY: Alert and oriented MOTIVATION TO LEARN: Eager FAMILY SUPPORT: None - Unavailable/disintereste d PATIENT LEARNS BEST BY: Individual Instruction FACTORS AFFECTING LEARNING: None PHYSICAL LIMITATIONS AFFECTING LEARNING: None [facility] PT EDon 04-15-2019 PT ED HNO ID: [id number] Author: Priya (Rn) LAURA Bateman Service: Nursing [...] By: Priya Bateman RN In Department: PROCEDURES [facility] ALLIED HEALTH 03-12-2019 ALLIED HEALTH HNO ID: [id number] Author: Darcie BeachRtJess Salgado Service: Radiology Author Type: Block Layer Type: Allied Health Filed: 03/12/2019 7:59 AM [...] RT Tomás March 12, 2019 7:59 AM [facility] XR UPPER GI DOUBLE CONTRAST/ AIRon 03-12-2019 [...] Moderate size hiatal hernia and gastroesophageal reflux. Jar Filler: [facility] Transcribe Date/Time: Mar 12 2019 8:31A Dictated by : SHIRLEY LOPEZ MD This examination was interpreted and the report reviewed and electronically signed by: SHIRLEY LOPEZ MD on Mar 12 2019 8:34AM EST [id number] Normal [facility] GASTRIC EMPTYING SOLIDon 03-10-2019 [place] GASTRIC EMPTYING SOLID * * *Final Report* * * DATE OF EXAM: Mar 10 2019 10:55AM [facility] 0017 - [place] GASTRIC EMPTYING SOLID / PROCEDURE REASON: Dyspepsia [...] RATE OF GASTRIC EMPTYING OF SOLID MEAL. Jar Filler: [facility] Transcribe Date/Time: Mar 10 2019 11:39A Dictated by : KIMBERLY BILLS MD This examination was interpreted and the report reviewed and electronically signed by: KIMBERLY BILLS MD on Mar 10 2019 11:43AM EST [id number] [facility] PROGRESSon 03-10-2019 PROGRESS HNO ID: [id number] Author: Jess Sagastume (Rt) Service: Radiology Author Type: Block Layer Type: Progress Notes Filed: 03/10/2019 8:45 AM [...] 08:28 PATIENT DISCHARGED TO: Ambulatory patient, left [place] department area. A Diagnostic radioactive procedure has taken place, with no further precautions necessary other than routine body substance precautions. More information regarding radiation safety can be found using this link: [email or web address] [email or web address] ion [email or web address] ear%[email or web address] [email or web address] SIGNATURE: RT Tanika (N0, SOFTWARE APPLICATIONS ENGINEER PATIENT NAME: Rodrigue Wallace DATE: March 10, 2019 TIME: 7:59 AM PAGER/CONTACT #: [facility] HOSPon 03-03-2019 HOSP Patient:Nubia Wallace MRN: Height:5' 3 (1.6 m) Weight:No patient weight recorded within the last 30 days. Outpatient Medications as of 04/15/19: NOVOLOG U-100 INSULIN ASPART 100 unit/mL soln PROLIA 60 mg/mL syrg Estore[employer]TORed [facility] ULTRA TEST test strip ezetimibe (ZETIA) 10 [...] for the following basenames: K,HCT Progress Notes ([facility] REJ): Anju Lyman MA, MA 04/01/2019 1:09 PM Signed Dear Miranda Powell This is in regards to our mutual patient Rodrigue Wallace who is scheduled for an EGD on 04/15/19. Dr. Cristobal is requesting pre procedure Diabetes medication recommendations. Please advise and route message to: Adrian MILLER COREsther/[facility] [id number] Anju Lyman MA, MA 04/01/2019 1:09 PM Signed EGD PREP INSTRUCTIONS 1 WEEK PRIOR TO PROCEDURE: *Please contact our office if you are diabetic, or you take any blood thinners. (ie. Plavix, Coumadin, Xarelto, Pradaxa, Eliquis) DAY BEFORE PROCEDURE: *You should receive a call from the [facility] with your arrival time between 12pm - 3pm. *If your arrival time is before noon, then NO SOLID FOODS OR LIQUIDS after midnight. *If your arrival time is afternoon, you may continue a clear liquid diet up to 3 hours prior to your arrival time. PROCEDURE DAY: *Make sure you have a responsible sheet pile driver operator to bring you and take you home from the procedure. *Bring your Photo ID and Insurance Cards with you. If you have any questions or problems, please call our office at [phone] and ask for GI Prep Line. Miranda Powell APRN.METAL PRODUCTS VIEWER 04/01/2019 1:33 PM Signed She should lower her temporary basal setting at bedtime to 70%. Temp basal time should start at bedtime and go through her procedure until she is alert again. (normally diabetics are scheduled first thing in morning, I would allow at least 2-3 hours after appt time for the temporary basal setting time. Anju Lymna MA, MA 04/02/2019 11:34 AM Signed Noted Anju Lyman MA, MA 04/05/2019 10:12 AM Signed Spoke with pt and advised of message below. Pt verbalized understanding. Pt had no further questions or concerns. Progress Notes ([facility] REJ): Elvia Jolly Pss 03/29/2019 12:35 PM Signed Patient called stating that she needs the records of her colonoscopy and her EGD from 06/30/17 sent to her Primary Care Doctor. Dr. Howard Santiago She would like to have this faxed over. She said she contacted the medical records and gave the ok to give this sent to her PCP but it wasn't sent yet. She can be reached at [phone]. Please advise. Sabino Grace LPN 03/29/2019 1:45 PM Signed Procedures AND biopsies faxed with confirmation Pt is aware [facility] Coding Summary.on 08-21-2018 Coding Summary. CODING DATE: 018 FINAL [facility] STATUS: Home (Routine DC) PAYOR: Medicare APC [...] CphT Date Saved: 08/21/2018 10:12 am Normal [facility] XR Shoulder Complete Righton 08-20-2018 XR [...] MD Transcribed by: GOKUL Technologist: DAMARIS Romo [facility] Cardiovascular Lab Reporton 06-26-2018 Cardiovascular Lab Report [facility] Patient Name: [facility] Rodrigue MR #: [id number] of Physician: Dejuan Lauren M.BharatDivision of Service Date: 06/25/2018Cardiology Birthdate: [birth year]Adult Cardiovascular Room #: [facility] [place], [place] [address]Kmoaf Fax Cardiovascular Laboratory ReportFINAL IMPRESSIONS:1. Angiographically nonobstructive [...] coronaryangiography, limited femoral angiography, placement of a 6-Ukrainian MynxGripclosure device.METHODS: After risks, benefits, and alternatives were explained, writteninformed consent was obtained. The patient was prepped and draped in theusual sterile fashion over the right groin. Using 1% lidocaine solution,local infiltration anesthesia was achieved. Using a modified Seldingertechnique, access to the right common femoral artery and vein was obtainedand 6-Ukrainian 11 cm sheath was inserted in each. [...] images, it was elected to conclude theprocedure.A 6-Ukrainian MynxGrip closure device was deployed per protocol achievingoptimal hemostasis. Overall, the patient tolerated the procedure well.There were no overt complications. [facility].FINDINGS:Hemod ynamics:1. AO 146/80.2. [...] 06/25/2018/09:04 Yazan/Ayleen Hickey M.D.Date Trans: 06/26/2018 04:33 [id number] 8cc: Howard Santiago M.D. [address] [address] Normal [facility] BASIC METABOLIC PANELon 05-24 Calcium mass conc 8.6 mg/dL Normal 8.6-10.3 [facility] Comment on above: Order Comment: No: D o not add to previous draw Performed By: #### 4 6413, 54277, 86492, 19884, 43284, 14310 ####[facility] [place] [address], [facility] Chloride molar conc 101 mmol/L Normal 98-107 [facility] Comment on above: Order Comment: No: D o not add to previous draw Performed By: #### 4 6413, 61850, 35747, 92626, 72159, 25310 ####[facility] [place] [address], [place] CO2 molar conc 27 mmol/L Normal 21-[address] [facility] Comment on above: Order Comment: No: D o not add to previous draw Performed By: #### 4 6413, 38041, 52918, 43971, 90698, 56100 ####[facility] [place] [address], [place] Creatinine mass conc 0.51 mg/dL Low 0.60-1.20 [facility] Comment on above: Order Comment: No: D o not add to previous draw Performed By: #### 4 6413, 27044, 61805, 97876, 13528, 29917 ####[facility] [facility] [place] [address], [facility] GFR/1.73 sq M predicted among blacks MDRD vol rate/area (S/P/Bld) mL/min/{1.73_m2} Normal >60 [facility] Comment on above: Order Comment: No: D o not add to previous draw Performed By: #### 4 6413, 20347, 28133, 97677, 18457, 19370 ####[facility] [facility] [place] [address], [facility] GFR/1.73 sq M predicted among non-blacks MDRD vol rate/area (S/P/Bld) mL/min/{1.73_m2} Normal >60 [facility] Comment on above: Order Comment: No: D o not add to previous draw Performed By: #### 4 6413, 72714, 80446, 83952, 55298, 09377 ####[facility] [place] [address], [facility] Glucose mass conc 211 mg/dL High 70-100 [facility] Comment on above: Order Comment: No: D o not add to previous draw Performed By: #### 4 6413, 97882, 96761, 55258, 98398, 01974 ####[facility] [facility] [place] [address], [facility] Potassium molar conc 4.0 mmol/L Normal 3.5-5.1 [facility] Comment on above: Order Comment: No: D o not add to previous draw Performed By: #### 4 6413, 57265, 97355, 73665, 94779, 50178 ####[facility] [place] [address], [facility] Sodium molar conc 135 mmol/L Low 136-145 [facility] Comment on above: Order Comment: No: D o not add to previous draw Performed By: #### 4 6413, 91953, 32514, 49486, 10955, 79498 ####[facility] [facility] Urea nitrogen mass conc 4 mg/dL Low 7-25 [facility] Comment on above: Order Comment: No: D o not add to previous draw Performed By: #### 4 6413, 34635, 41636, 47070, 71477, 21242 ####[facility] [facility] CBC COMPLETE BLOOD COUNTon 0 06-17-2018 Erythrocyte distribution width Auto Ratio (RBC) 14.7 % Normal 11.5-15.0 [facility] Comment on above: Order Comment: No: D o not add to previous draw Performed By: #### 4 6413, 29279, 92363, 76576, 69147, 45836 ####[facility] [facility] Hematocrit Auto Volume Fraction (Bld) 34.4 % Low 36.0-45.0 [facility] Comment on above: Order Comment: No: D o not add to previous draw Performed By: #### 4 6413, 29053, 74522, 86303, 25309, 01281 ####[facility] [facility] Hemoglobin mass conc (Bld) 11.0 g/dL Low 12.0-15.0 [facility] Comment on above: Order Comment: No: D o not add to previous draw Performed By: #### 4 6413, 91000, 96803, 05586, 59779, 02259 ####[facility] [place] [address], [facility] MCH Auto Entitic mass (RBC) 26.3 pg Low 27.0-33.0 [facility] Comment on above: Order Comment: No: D o not add to previous draw Performed By: #### 4 6413, 96498, 26335, 60069, 80534, 17839 ####[facility] MCHC Auto mass conc (RBC) 32.0 g/dL Normal 32.0-35.0 [facility] Comment on above: Order Comment: No: D o not add to previous draw Performed By: #### 4 6413, 44717, 40536, 27783, 06407, 78433 ####[facility] MCV Auto Entitic volume (RBC) 82.3 fL Normal 82.0-98.0 [facility] Comment on above: Order Comment: No: D o not add to previous draw Performed By: #### 4 6413, 53044, 42948, 01455, 72903, 86194 ####[facility] Nucleated RBC/100 WBC Ratio (Bld) 0 % Normal 0-0 [facility] Comment on above: Order Comment: No: D o not add to previous draw Performed By: #### 4 6413, 42259, 23565, 43603, 61391, 32593 ####[facility] PLAT CNT 301 10*3/uL Normal 150-400 [facility] Comment on above: Order Comment: No: D o not add to previous draw Performed By: #### 4 6413, 37101, 63278, 44393, 13550, 83529 ####[facility] RBC Auto #/vol (Bld) 4.18 10*6/uL Normal 3.80-5.00 [facility] Comment on above: Order Comment: No: D o not add to previous draw Performed By: #### 4 6413, 39855, 45954, 51771, 26107, 87293 ####[facility] [place] [address], [facility] WBC Auto #/vol (Bld) 5.45 10*3/uL Normal 4.00-10.60 [facility] Comment on above: Order Comment: No: D o not add to previous draw Performed By: #### 4 6413, 75694, 09482, 11605, 89294, 97426 ####[facility] [place] [address], [facility] MAGNESIUM BLOODon 06-17-2018 Magnesium mass conc 1.6 mg/dL Low 1.9-2.7 [facility] Comment on above: Order Comment: No: D o not add to previous draw Performed By: #### 4 6413, 96833, 62487, 58454, 93034, 33826 ####[facility] [place] [address], [facility] POC GLUCOSE LABon 06-17-2018 Glucose mass conc 239 mg/dL High 70-100 [facility] Comment on above: Performed By: #### 4 6413, 13384, 53309, 37894, 62048, 86879 ####[facility] [place] [address], [facility] Glucose mass conc 254 mg/dL High 70-100 [facility] Comment on above: Performed By: #### 4 6413, 36786, 10558, 64245, 89162, 67773 ####[facility] [place] [address], [facility] TROPONIN-Ion 06-17-2018 Troponin I.cardiac mass conc 0.00 ng/mL Normal 0.00-0.04 [facility] Comment on above: Order Comment: No: D o not add to previous draw Result Comment: REFE RENCE RANGES: 0.00 - 0.14 ng/ml NEGATIVE 0.15 - 0.25 ng/ml INDETERMINATE > 0.25 ng/ml INDICATIVE OF AN M.I. Performed By: #### 4 6413, 76816, 67958, 61939, 63944, 08507 ####[facility] BNP (B-TYPE NATRIURETIC PEPT PRAVEENA)on 06-16-2018 Natriuretic peptide B mass conc (Bld) 54 pg/mL Normal 0-100 [facility] Comment on above: Order Comment: No: D o not add to previous draw Result Comment: Give n the appropriate clinical setting a BNP result of >100 pg/mLindicates congestive heart failure. Performed By: #### 8 5123 ####[facility] CBC W/DIFFon 06-16-2018 ABS BASOPHILS 0.0 10*3/uL Normal 0.0-0.[address] [facility] Comment on above: Order Comment: No: D o not add to previous draw Performed By: #### 5 0103 ####[facility] ABS IMM GRANS 0.0 10*3/uL Normal 0.0-0.[address] [facility] Comment on above: Order Comment: No: D o not add to previous draw Performed By: #### 5 0103 ####[facility] ABS NEUTROPHILS 4.1 10*3/uL Normal 1.6-7.6 The [facility] Comment on above: Order Comment: No: D o not add to previous draw Performed By: #### 5 0103 ####[facility] Basophils Auto #/vol (Bld) 0.1 % Normal 0.0-1.0 [facility] Comment on above: Order Comment: No: D o not add to previous draw Performed By: #### 5 0103 ####[facility] Eosinophils Auto #/vol (Bld) 0.0 10*3/uL Normal 0.0-0.5 [facility] Comment on above: Order Comment: No: D o not add to previous draw Performed By: #### 5 0103 ####[facility] [facility].[address] Eosinophils/100 WBC Auto (Bld) 0.4 % Normal 0.0-6.0 [facility] Comment on above: Order Comment: No: D o not add to previous draw Performed By: #### 5 0103 ####[address] Erythrocyte distribution width Auto Ratio (RBC) 14.5 % Normal 11.5-15.0 [facility] Comment on above: Order Comment: No: D o not add to previous draw Performed By: #### 5 0103 ####[facility] Hematocrit Auto Volume Fraction (Bld) 33.2 % Low 36.0-45.0 [facility] Comment on above: Order Comment: No: D o not add to previous draw Performed By: #### 5 0103 ####[facility] [place] [address] Hemoglobin mass conc (Bld) 10.7 g/dL Low 12.0-15.0 [facility] Comment on above: Order Comment: No: D o not add to previous draw Performed By: #### 5 0103 ####[facility] IMMATURE GRANS 0.3 % Normal 0.0-1.[address] [facility] Comment on above: Order Comment: No: D o not add to previous draw Performed By: #### 5 0103 ####[facility] Lymphocytes Auto #/vol (Bld) 2.7 10*3/uL Normal 1.2-4.0 [facility] Comment on above: Order Comment: No: D o not add to previous draw Performed By: #### 5 0103 ####[facility] [place] [address] Lymphocytes/100 WBC Auto (Bld) 36.8 % Normal 20.0-45.0 [facility] Comment on above: Order Comment: No: D o not add to previous draw Performed By: #### 5 0103 ####[address] MCH Auto Entitic mass (RBC) 26.4 pg Low 27.0-33.0 [facility] Comment on above: Order Comment: No: D o not add to previous draw Performed By: #### 5 0103 ####[facility] [place] [address] MCHC Auto mass conc (RBC) 32.2 g/dL Normal 32.0-35.0 [facility] Comment on above: Order Comment: No: D o not add to previous draw Performed By: #### 5 3 ####[facility] [place] [address] MCV Auto Entitic volume (RBC) 82.0 fL Normal 82.0-98.0 [facility] Comment on above: Order Comment: No: D o not add to previous draw Performed By: #### 5 0103 ####[facility] [place] [address] Monocytes Auto #/vol (Bld) 0.5 10*3/uL Normal 0.1-1.0 [facility] Comment on above: Order Comment: No: D o not add to previous draw Performed By: #### 5 0103 ####[facility] [place] [address], [facility] MONOS 6.4 % Normal 5.0-12.0 [facility] Comment on above: Order Comment: No: D o not add to previous draw Performed By: #### 5 0103 ####[facility] [place] [address], [facility] Neutrophils/100 WBC Auto (Bld) 56.0 % Normal 40.0-72.0 [facility] Comment on above: Order Comment: No: D o not add to previous draw Performed By: #### 5 0103 ####[facility] [place] [address], [facility] Nucleated RBC/100 WBC Ratio (Bld) 0 % Normal 0-0 [facility] Comment on above: Order Comment: No: D o not add to previous draw Performed By: #### 5 0103 ####[facility] [place] [address], [facility] PLAT CNT 293 10*3/uL Normal 150-400 [facility] Comment on above: Order Comment: No: D o not add to previous draw Performed By: #### 5 0103 ####[facility] [place] [address], [facility] RBC Auto #/vol (Bld) 4.05 10*6/uL Normal 3.80-5.00 [facility] Comment on above: Order Comment: No: D o not add to previous draw Performed By: #### 5 0103 ####[facility] [id number], [facility] WBC Auto #/vol (Bld) 7.30 10*3/uL Normal 4.00-10.60 [facility] Comment on above: Order Comment: No: D o not add to previous draw Performed By: #### 5 0103 ####[facility] [place] [address], [facility] COMP METABOLIC PANELon 06-16 Albumin mass conc 3.7 g/dL Normal 3.5-5.7 [facility] Comment on above: Order Comment: No: D o not add to previous draw Performed By: #### 4 6413, 59559, 83455, 84296, 13488, 69675 ####[facility] [facility] [place] [address], [facility] ALKALINE PHOSPH 39 IU/L Normal 34-104 [facility] Comment on above: Order Comment: No: D o not add to previous draw Performed By: #### 4 6413, 57699, 55472, 73554, 98881, 21831 ####[facility] [facility] [place] [address], [facility] ALT enzyme act/vol 6 U/L Low 7-52 The [facility] Comment on above: Order Comment: No: D o not add to previous draw Performed By: #### 4 6413, 04667, 61336, 93997, 69952, 55590 ####[facility] [facility] AST enzyme act/vol 12 U/L Low 13-39 The [facility] Comment on above: Order Comment: No: D o not add to previous draw Performed By: #### 4 6413, 50393, 08447, 82205, 66672, 10348 ####[facility] [place] [address], [facility] Bilirubin mass conc 0.4 mg/dL Normal 0.3-1.0 [facility] Comment on above: Order Comment: No: D o not add to previous draw Performed By: #### 4 6413, 38704, 75310, 12742, 83056, 41997 ####[facility] [place] [address], [facility] Calcium mass conc 9.1 mg/dL Normal 8.6-10.3 [facility] Comment on above: Order Comment: No: D o not add to previous draw Performed By: #### 4 6413, 64914, 43287, 34530, 86122, 73338 ####[facility] [place] [address], [place] Chloride molar conc 96 mmol/L Low 98-107 [facility] Comment on above: Order Comment: No: D o not add to previous draw Performed By: #### 4 6413, 42236, 86979, 62055, 50846, 80441 ####[facility] [place] [address], [place] CO2 molar conc 23 mmol/L Normal 21-[address] [facility] Comment on above: Order Comment: No: D o not add to previous draw Performed By: #### 4 6413, 32836, 59919, 24940, 73268, 69897 ####[facility] [place] [address], [place] Creatinine mass conc 0.50 mg/dL Low 0.60-1.20 [facility] Comment on above: Order Comment: No: D o not add to previous draw Performed By: #### 4 6413, 79645, 36001, 12813, 27464, 61334 ####[facility] [place] [address], [place] GFR/1.73 sq M predicted among blacks MDRD vol rate/area (S/P/Bld) mL/min/{1.73_m2} Normal >60 [facility] Comment on above: Order Comment: No: D o not add to previous draw Performed By: #### 4 6413, 64614, 94483, 56757, 22230, 17172 ####[facility] [place] [address], [place] GFR/1.73 sq M predicted among non-blacks MDRD vol rate/area (S/P/Bld) mL/min/{1.73_m2} Normal >60 [facility] Comment on above: Order Comment: No: D o not add to previous draw Performed By: #### 4 6413, 19309, 29734, 45588, 38992, 66706 ####[facility] [place] [address], [facility] Glucose mass conc 269 mg/dL High 70-100 [facility] Comment on above: Order Comment: No: D o not add to previous draw Performed By: #### 4 6413, 91961, 54003, 05024, 15899, 90789 ####[facility] [place] [address], [facility] Potassium molar conc 3.8 mmol/L Normal 3.5-5.1 [facility] Comment on above: Order Comment: No: D o not add to previous draw Performed By: #### 4 6413, 81190, 73053, 13279, 41417, 69605 ####[facility] [place] [address], [facility] Protein mass conc 6.4 g/dL Normal 6.0-8.3 [facility] Comment on above: Order Comment: No: D o not add to previous draw Performed By: #### 4 6413, 83361, 45281, 83323, 11168, 48043 ####[facility] [place] [address], [facility] Sodium molar conc 130 mmol/L Low 136-145 [facility] Comment on above: Order Comment: No: D o not add to previous draw Performed By: #### 4 6413, 60585, 84362, 01020, 83319, 97292 ####[facility] [place] [address], [place] Urea nitrogen mass conc 5 mg/dL Low 7-25 [facility] Comment on above: Order Comment: No: D o not add to previous draw Performed By: #### 4 6413, 58944, 93623, 41636, 65989, 28379 ####[facility] History and Physicalon 06-16 History and Physical [id number]ue Wallace Admitted: 06/15/2018 Date of : 1950 Attending Physician: Nilda Walls M.D. Room #: 3CD [id number] Discharge Date: HISTORY AND PHYSICALThe patient was seen by me on June 15, 2018.CHIEF COMPLAINT: Hypertensive urgency.HISTORY OF PRESENT ILLNESS: The patient is a 68-year-old female with apast medical history of hypertension and diabetes who presented to [facility] asa transfer from [place] [facility]. From the history, we know that the patient wasseen yesterday by her chemistry quality control analyst there and had high blood pressure in [...] back negative. She was transferred to the [facility].The patient's chemistry quality control analyst planned to do cardiac cath on her in 3 days hereat [facility] anyway. When I was examining her, [...] DATA: Labs that were done at the [facility] shows white bloodcell 7.6, hemoglobin 11.5, hematocrit [...] 06/16/2018/12:19 Yazan/Nilda Walls M.D.Date Trans: 06/16/2018 05:38 A/[id number] Normal [facility] LIPID PROFILEon 06-16-2018 Cholesterol in HDL mass conc 78 mg/dL Normal 23-92 [facility] Comment on above: Order Comment: No: D o not add to previous draw Result Comment: Slig ht variation in normal range could be due to gender and/or age.HDL CHOLESTEROL REFERENCE RANGE:20 years and older Cardiovascular Risk> or =60 mg/dL [id number] TO 59 mg/dL Low Risk<40 mg/dL High Risk Performed By: #### 4 6413, 44107, 12232, 42754, 14152, 54194 ####[facility] Cholesterol in LDL mass conc 71 mg/dL Normal 0-130 [facility] Comment on above: Order Comment: No: D o not add to previous draw Result Comment: LDL IS A CALCULATIONLDL IS ONLY VALID IF THE TRIG IS LESS THAN 400. Performed By: #### 4 6413, 05359, 90590, 07955, 06843, 39058 ####[facility] [place] [address], [facility] Cholesterol mass conc 167 mg/dL Normal 120-200 [facility] Comment on above: Order Comment: No: D o not add to previous draw Result Comment: CHOL ESTEROL REFERENCE RANGE:20 YEARS AND OLDER CARDIOVASCULAR RISKLess than 200 mg/dl Low Ercc666 to 239 mg/dl Borderline Refi249 mg/dl and greater High Risk Performed By: #### 4 6413, 35487, 45856, 90106, 43307, 06655 ####[facility] [place] [address], [facility] Cholesterol.total/ Cholesterol in HDL mass ratio 2.1 {ratio} Normal .0-4.5 [facility] Comment on above: Order Comment: No: D o not add to previous draw Performed By: #### 4 6413, 39975, 36742, 80929, 65440, 82787 ####[facility] [place] [address], [facility] NON-HDL CHOLESTEROL 89 mg/dL Normal [facility] Comment on above: Order Comment: No: D o not add to previous draw Performed By: #### 4 6413, 50859, 12548, 74877, 48717, 03354 ####[facility] [place] [address], [facility] Triglyceride mass conc 89 mg/dL Normal 40-149 [facility] Comment on above: Order Comment: No: D o not add to previous draw Result Comment: TRIG LYCERIDE REFERENCE RANGE:20 YEARS AND OLDER CARDIOVASCULAR RISKLESS THAN 150 mg/dl LOW [id number] TO 199 mg/dl BORDERLINE SBJL116 mg/dl AND GREATER HIGH RISK Performed By: #### 4 6413, 64687, 55670, 87450, 67087, 39146 ####[facility] [place] [address], [facility] VLDL CHOL 18 mg/dL Normal 0-40 [facility] Comment on above: Order Comment: No: D o not add to previous draw Performed By: #### 4 6413, 79974, 17504, 15987, 32515, 45850 ####[facility] [place] [address], [facility] MAGNESIUM BLOODon 06-16-2018 Magnesium mass conc 1.6 mg/dL Low 1.9-2.7 [facility] Comment on above: Order Comment: No: D o not add to previous draw Performed By: #### 4 6413, 84412, 73520, 09545, 39842, 60614 ####[facility] [place] [address], [facility] PHOSPHORUS BLOODon 8 Phosphate mass conc 3.0 mg/dL Normal 2.5-5.0 [facility] Comment on above: Order Comment: No: D o not add to previous draw Performed By: #### 4 6413, 11411, 20006, 06626, 51962, 41689 ####[facility] [place] [address], [facility] POC GLUCOSE LABon 06-16-2018 Glucose mass conc 224 mg/dL High 70-100 [facility] Comment on above: Performed By: #### 4 6413, 30390, 24992, 07666, 49819, 46577 ####[facility] [place] [address], [facility] Glucose mass conc 191 mg/dL High 70-100 [facility] Comment on above: Performed By: #### 4 6413, 86277, 71134, 14143, 74971, 04793 ####[facility] [place] [address], [place] Glucose mass conc 225 mg/dL High 70-100 [facility] Comment on above: Performed By: #### 4 6413, 38414, 48635, 81678, 24717, 27046 ####[facility] [place] [address], [facility] Glucose mass conc 118 mg/dL High 70-100 [facility] Comment on above: Performed By: #### 4 6413, 01316, 80073, 79982, 85413, 06549 ####[facility] [place] [address], [facility] TROPONIN-Ion 06-16-2018 Troponin I.cardiac mass conc 0.00 ng/mL Normal 0.00-0.04 [facility] Comment on above: Order Comment: No: D o not add to previous draw Result Comment: REFE RENCE RANGES: 0.00 - 0.14 ng/ml NEGATIVE 0.15 - 0.25 ng/ml INDETERMINATE > 0.25 ng/ml INDICATIVE OF AN M.I. Performed By: #### 4 6413, 15500, 20850, 54209, 47229, 76392 ####[facility] [place] [address], [facility] Troponin I.cardiac mass conc 0.00 ng/mL Normal 0.00-0.04 [facility] Comment on above: Order Comment: No: D o not add to previous draw Result Comment: REFE RENCE RANGES: 0.00 - 0.14 ng/ml NEGATIVE 0.15 - 0.25 ng/ml INDETERMINATE > 0.25 ng/ml INDICATIVE OF AN M.I. Performed By: #### 3 5200 ####[facility] [place] [address], [facility] Troponin I.cardiac mass conc 0.00 ng/mL Normal 0.00-0.04 [facility] Comment on above: Order Comment: No: D o not add to previous draw Result Comment: REFE RENCE RANGES: 0.00 - 0.14 ng/ml NEGATIVE 0.15 - 0.25 ng/ml INDETERMINATE > 0.25 ng/ml INDICATIVE OF AN M.I. Performed By: #### 4 6413, 83608, 35172, 48984, 49021, 63520 ####[facility] [facility].[address] TSH3on 06-16-2018 TSH 3RD GENERATION 0.79 uIU/mL Normal 0.34-5.60 [facility] Comment on above: Order Comment: No: D o not add to previous draw Performed By: #### 4 6413, 26025, 04971, 60937, 17391, 11734 ####[facility] [facility].[address] URINALYSIS REFLEXon 06-16-20 18 APPEARANCE CLEAR Normal CLEAR [facility] Comment on above: Order Comment: No: D o not add to previous drawCriteria for reflexing a culture was not met. Please call the lab [id number] within 24 hours of collection time if culture is needed Performed By: #### 3 0965 ####[place] [id number] [facility].[address] BILIRUBIN Negative Normal NEGATIVE [facility] Comment on above: Order Comment: No: D o not add to previous drawCriteria for reflexing a culture was not met. Please call the lab [id number] within 24 hours of collection time if culture is needed Performed By: #### 3 0965 ####[facility] [facility].[address] BLOOD Negative Normal NEGATIVE [facility] Comment on above: Order Comment: No: D o not add to previous drawCriteria for reflexing a culture was not met. Please call the lab [id number] within 24 hours of collection time if culture is needed Performed By: #### 3 0965 ####[facility] [place] [address], [facility] COLOR STRAW Abnormal YELLOW [facility] Comment on above: Order Comment: No: D o not add to previous drawCriteria for reflexing a culture was not met. Please call the lab [id number] within 24 hours of collection time if culture is needed Performed By: #### 3 0965 ####[facility] [place] [address], [facility] GLUCOSE 150 mg/dL Abnormal NEGATIVE [facility] Comment on above: Order Comment: No: D o not add to previous drawCriteria for reflexing a culture was not met. Please call the lab [id number] within 24 hours of collection time if culture is needed Performed By: #### 3 0965 ####[facility] [place] [address], [facility] KETONE TRACE Abnormal NEGATIVE [facility] Comment on above: Order Comment: No: D o not add to previous drawCriteria for reflexing a culture was not met. Please call the lab [id number] within 24 hours of collection time if culture is needed Performed By: #### 3 0965 ####[facility] [place] [address], [facility] LEUK LINDA Negative Normal NEGATIVE [facility] Comment on above: Order Comment: No: D o not add to previous drawCriteria for reflexing a culture was not met. Please call the lab [email or web address] within 24 hours of collection time if culture is needed Performed By: #### 3 0965 ####[facility] [place] [address], [facility] MICRO NOT DONE negative chemical reactions unless requested in original order Normal [facility] Comment on above: Order Comment: No: D o not add to previous drawCriteria for reflexing a culture was not met. Please call the lab [email or web address] within 24 hours of collection time if culture is needed Performed By: #### 3 0965 ####[facility] [place] [address], [place] NITRITE Negative Normal NEGATIVE [facility] Comment on above: Order Comment: No: D o not add to previous drawCriteria for reflexing a culture was not met. Please call the lab [id number] within 24 hours of collection time if culture is needed Performed By: #### 3 0965 ####[facility] PH 7.0 Normal 5.0-8.0 [facility] Comment on above: Order Comment: No: D o not add to previous drawCriteria for reflexing a culture was not met. Please call the lab [id number] within 24 hours of collection time if culture is needed Performed By: #### 3 0965 ####[facility] Protein mass conc Negative Normal NEGATIVE [facility] Comment on above: Order Comment: No: D o not add to previous drawCriteria for reflexing a culture was not met. Please call the lab [id number] within 24 hours of collection time if culture is needed Performed By: #### 3 0965 ####[facility] SPEC GRAV 1.004 Low 1.015-1.020 [facility] Comment on above: Order Comment: No: D o not add to previous drawCriteria for reflexing a culture was not met. Please call the lab [email or web address] within 24 hours of collection time if culture is needed Performed By: #### 3 0965 ####[address] Social History Date Type Detail Facility Start: 10-13-2023 Alcohol intake Lifetime non-drinker (finding) [facility] Start: 04-30-2023 End: 01-19-2024 Humiliation, Afraid, Rape, and Kick questionnaire [HARK] [facility] Start: 02-13-2023 Tobacco smoking status NHIS Never smoked tobacco [facility] Start: 01-24-2023 Alcohol Comment Caffeine: Coffee, Intake: 2-3 cups per day [facility] Start: 01-01-2022 End: 01-19-2024 Alcohol intake Current drinker of alcohol (finding) [facility] Start: 12-22-2021 End: 01-01-2022 Exposure to SARS-CoV-2 (event) Not sure [facility] Start: 09-17-2021 Gender identity Identifies as female gender (finding) [facility] Start: 09-17-2021 Sexual orientation Heterosexual (finding) [facility] Start: 07-29-2011 Tobacco smoking status NHIS Ex-smoker [facility] Start: 07-29-2011 End: 01-19-2024 Cigarettes smoked current (pack per day) - Reported 1 [facility] Start: 07-29-2011 End: 02-13-2023 Tobacco use and exposure Smokeless tobacco non-user [facility] Work Phone: Start: 1950 Sex Assigned At Female [facility] Start: 1950 Sex Assigned At Not on file [facility] End: 09-22-2002 History of tobacco use Current smoker [facility] End: 09-22-2002 History of tobacco use Cigarette Smoker [facility] Within the last year , have you been afraid of your partner or ex-partner? No [facility] Do you belong to any clubs or organizations such as islam groups, [employer], [employer] or athletic groups, or school groups? Yes [...] 160 cm Amparo Martinez APRN.CNP Work Phone: [facility] 01-19-2024 10:37-0400 Body mass index (BMI) [Ratio] 25.86 kg/m2 Amparo Martinez APRN.CNP Work Phone: [facility] 01-19-2024 10:37-0400 Body weight 66.22 kg Amparo Martinez APRN.CNP Work Phone: [facility] 01-19-2024 10:37-0400 Diastolic blood pressure 74 mm[Hg] Amparo Martinez COMBATANT DIVER OFFICER.[employer] Work Phone: [facility] 01-19-2024 10:37-0400 Heart rate 75 /min Amparo Martinez COMBATANT DIVER OFFICER.[employer] Work Phone: [facility] 01-19-2024 10:37-0400 Systolic blood pressure 129 mm[Hg] Amparo Martinez COMBATANT DIVER OFFICER.[employer] Work Phone: [facility] 04-26-2022 09:46-0400 Body height 160 cm Araclei Nathan COMBATANT DIVER OFFICER.[employer] Work Phone: [facility] 04-26-2022 09:46-0400 Body weight 72.12 kg Araceli Nathan COMBATANT DIVER OFFICER.[employer] Work Phone: [facility] 04-26-2022 09:46-0400 Diastolic blood pressure 84 mm[Hg] Araceli Nathan COMBATANT DIVER OFFICER.[employer] Work Phone: [facility] 04-26-2022 09:46-0400 Heart rate 74 /min Araceli Nathan COMBATANT DIVER OFFICER.[employer] Work Phone: [facility] 04-26-2022 09:46-0400 Systolic blood pressure 126 mm[Hg] Araceli Nathan COMBATANT DIVER OFFICER.[employer] Work Phone: [facility] Clinical Notes 12-18-2009 to 01-19-2024 Amparo [...] Performing Organization Information Site ID: QPT Name: [facility] Address: [address] [place] [address], [address] [place] [id number] Director: Félix Elder MD Specimen Collected: 01/12/24 10:46 AM Performed by: MONA Last Resulted: 01/13/24 10:49 AM Received From: [facility] [employer] Result Received: 01/19/24 9:59 AM CBC and [...] 0.2 Resulting Agency [facility] Narrative Performed by [employer] FASTING:YES FASTING: YES Resulting Agency Comment Performing Organization Information Site ID: QTW [facility] Address: [address] [place] [id number] Director: Cristhian Murphy Specimen Collected: 12/31/23 8:39 AM Performed by: [employer] Last Resulted: 01/01/24 6:16 AM Received From: [facility] Result Received: 01/19/24 9:59 AM ASSESSMENT/PLAN: 1. Screening for malignant neoplasm of colon - ICD9: V76.51, ICD10: Z12.11 (primary diagnosis) - Due for screening. Colonoscopy 06/2017 revealed sigmoid diverticulosis, otherwise normal exam. Repeat was recommended in 5 years. [facility] in her sister. - COLONOSCOPY [...] to surgery. - EGD DIAGNOSTIC Amparo Martinez APRN.[facility] [address], [address] [place] [address] Department: [phone] This note was generated with voice recognition software and may contain errors, including spelling, grammar, syntax and misrecognition of what was dictated, that are not fully corrected. documented in this encounter [facility] 11-05-2023 Telephone encounter Note OARRS reviewed, Rx sent into patient's pharmacy. [facility] 11-05-2023 Miscellaneous Notes OARRS reviewed, Rx sent into patient's pharmacy. documented in this encounter [facility] 12-11-2022 Miscellaneous Notes Received a fax from [employer] requesting C Peptide and Fasting glucose under 225 mg/dl done on the same day and A1C. Printed labs from 01/05/2003 and and printed A1C's from 01/27/13 & 04/26/22, faxed to [phone]. Confirmation received. documented in this encounter [facility] 12-05-2022 Miscellaneous Notes Received a fax from [employer] requesting copy of patient labs for C Peptide and fasting glucose. Faxed results, Confirmation received. documented in this encounter [facility] 11-06-2022 Miscellaneous Notes Received a form from [employer] for CGM and Pump supplies. Requesting last office notes within last 6 months. Printed notes from 04/26/22. Faxed completed form and notes. Confirmation received. documented in this encounter [facility] 07-04-2022 Miscellaneous Notes Received a fax from [employer] requesting last 2 office notes. Faxed notes from 09/26/21 and 04/26/22 to [phone]. Confirmation received. documented in this encounter [facility] 04-26-2022 Note HNO ID: [id number] Author: Araceli Nathan APRN.[employer] Service: ? Author Type: Nurse Practitioner Type: Progress Notes Filed: 04/26/2022 10:30 AM Note Text: 72yo WF with h/o DM1 since age 56, on [employer] 670G pump in 09/2019, hypoglycemia unawareness, neuropathy, HTN, HLP, osteoporosis, here for f/u, followed by Dr. Hunter and I. At [facility] we increased carb ratio as she [...] Medication Sig - Blood-Glucose Meter,Continuous (DEXCOM G6 MANAGER STUDIO) misc USE TO TEST BLOOD SUGARS 5 TIMES DAILY - Blood-Glucose Sensor ([employer] G6 SENSOR) shayy USE TO TEST BLOOD SUGARS 5 TIMES DAILY - Blood-Glucose Transmitter ([employer] G6 TRANSMITTER) shayy USE TO TEST BLOOD SUGARS 5 TIMES DAILY - blood sugar diagnostic ([employer] NEXT TEST STRIPS) test strip USE TO [...] - Subcutaneous Insulin Pump (PARADIGM INSULIN PUMP) [facility] 523 Basal: 24:00- 00.35. 300-0.55; 0700-0.75 2300-0.375. [...] Take 1 capsu (more content not included)... [facility] 04-26-2022 Instructions Araceli Nathan APRN.RHEA - 04/26/2022 10:13 AM EDT Basal: MN 0.500-->0.425 9a 0.800-->0.700 Noon 0.700 5p 0.650 10p 0.450 Carb MN 18 10a 20 Sensitivity MN 50 Obtain labs Follow up with Dr. Hunter in 2 months documented in this encounter [facility] 04-26-2022 History of Present illness Narrative 72yo WF with h/o DM1 since age 56, on Medtronic 670G pump in 09/2019, hypoglycemia unawareness, neuropathy, HTN, HLP, osteoporosis, here for f/u, followed by Dr. Hunter and I. At [facility] we increased carb ratio as she [...] Visit Medication Sig Blood-Glucose Meter,Continuous (DEXCOM G6 MANAGER STUDIO) misc USE TO TEST BLOOD SUGARS 5 TIMES DAILY Blood-Glucose Sensor (DEXCOM G6 SENSOR) shayy USE TO TEST BLOOD SUGARS 5 TIMES DAILY Blood-Glucose Transmitter (DEXCOM G6 TRANSMITTER) shayy USE TO TEST BLOOD SUGARS 5 TIMES DAILY blood sugar diagnostic (CONTOUR NEXT TEST STRIPS) test strip USE TO TEST BLOOD SUGARS 5 TIMES DAILY carisoprodol (SOMA ORAL) Take by mouth. Lancets ([employer]storeifyTOUCH ULTRASOFT LANCETS) lancets Use to test blood [...] daily Subcutaneous Insulin Pump (PARADIGM INSULIN PUMP) [facility] 523 Basal: 24:00- 00.35. 300-0.55; 0700-0.75 2300-0.375. [...] -As above Insulin pump titration -As above FPC (current) use of insulin (HCC) -As above F/u [address] Hunter as scheduled Some elements copied from my note (01/01/2022) which have been updated where appropriate, and all reflect current medical decision making from date of this visit. Araceli Nathan APRN.RHEA documented in this encounter [facility] 01-01-2022 Miscellaneous Notes Prescriptions faxed to [...] inquire for a form for Dexcom G6. [facility] states we can fax a prescription to : [phone] and they will send us what form is needed. documented in this encounter [facility] 01-01-2022 Note HNO ID: [id number] Author: Araceli Nathan APRN.CNP Service: ? Author [...] Medication Sig - Blood-Glucose Meter,Continuous (DEXCOM G6 MANAGER STUDIO) misc USE TO TEST BLOOD SUGARS 5 [...] - Subcutaneous Insulin Pump (PARADIGM INSULIN PUMP) [facility] 523 Basal: 24:00- 00.35. 300-0.55; 0700-0.75 2300-0.375. [...] daily. No cur (more content not included)... [facility] 12-18-2009 History of Past i llness Narrative Problem Noted Date Resolved Date Diabetes mellitus type 1, un controlled, without complications 12/18/2009 08/23/2016 Type II or unspecified type diabetes mellitus without mention of complication, uncontrolled 07/22/2005 12/18/2009 Type II or unspecified type diabetes mellitus without mention of complication, not stated as uncontrolled 07/22/2005 documented as of this encounter (statuses as of 01/01/2022) [facility] History of Past illness Narrative* Problem Noted Date Resolved Date Diabetes mellitus type 1, un controlled, without complications 12/18/2009 08/23/2016 Type II or unspecified type diabetes mellitus without mention of complication, uncontrolled 07/22/2005 12/18/2009 Type II or unspecified type diabetes mellitus without mention of complication, not stated as uncontrolled 07/22/2005 documented as of this encounter (statuses as of 04/26/2022) [facility] History of Past illness Narrative* Problem Noted Date Resolved Date Diabetes mellitus type 1, un controlled, without complications 12/18/2009 08/23/2016 Type II or unspecified type diabetes mellitus without mention of complication, uncontrolled 07/22/2005 12/18/2009 Type II or unspecified type diabetes mellitus without mention of complication, not stated as uncontrolled 07/22/2005 documented as of this encounter (statuses as of 07/10/2022) [facility] History of Past illness Narrative* Problem Noted Date Resolved Date Diabetes mellitus type 1, un controlled, without complications 12/18/2009 08/23/2016 Type II or unspecified type diabetes mellitus without mention of complication, uncontrolled 07/22/2005 12/18/2009 Type II or unspecified type diabetes mellitus without mention of complication, not stated as uncontrolled 07/22/2005 documented as of this encounter (statuses as of 11/07/2022) [facility] History of Past illness Narrative* Problem Noted Date Resolved Date Diabetes mellitus type 1, un controlled, without complications 12/18/2009 08/23/2016 Type II or unspecified type diabetes mellitus without mention of complication, uncontrolled 07/22/2005 12/18/2009 Type II or unspecified type diabetes mellitus without mention of complication, not stated as uncontrolled 07/22/2005 documented as of this encounter (statuses as of 12/05/2022) [facility] History of Past illness Narrative* Problem Noted Date Resolved Date Diabetes mellitus type 1, un controlled, without complications 12/18/2009 08/23/2016 Type II or unspecified type diabetes mellitus without mention of complication, uncontrolled 07/22/2005 12/18/2009 Type II or unspecified type diabetes mellitus without mention of complication, not stated as uncontrolled 07/22/2005 documented as of this encounter (statuses as of 12/11/2022) [facility] [place] [facility] Diagnosis 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) Type I (juvenile type) diabetes mellitus with other specified manifestations, not stated as uncontrolled Insulin pump status [facility] [place] [facility] Diagnosis 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)- Primary Type I (juvenile type) diabetes mellitus with other specified manifestations, not stated as uncontrolled Insulin pump status Insulin pump titration Fitting and adjustment of insulin pump FPC (current) use of insulin (HCC) [facility] [place] [facility] Diagnosis Secondary osteoarthritis, right [facility] Screening for malignant neoplasm of colon- Primary Iron deficiency anemia, unspecified iron deficiency anemia type Hiatal hernia Diaphragmatic hernia without mention of obstruction or gangrene Family history of colon cancer Family history of malignant neoplasm of gastrointestinal tract documented in this encounter [facility] for referral (narrative)* Outpatient Procedure (Routine) - Authorized Specialty Diagnoses / Procedures Referred By Dre t Referred To Contact [facility] Diagnoses Iron deficiency anemia, unspecified iron deficiency anemia type Hiatal hernia Procedures EGD DIAGNOSTIC ESOPHAGOGASTRODUODENOSC OPY TRANSORAL DIAGNOSTIC Amparo Martinez APRN.CNP [address] [place] [address] [facility] Disease [address] [address] Referral ID Status Reason Start Date Expiration Date Visits Requested Visits Authorized [id number] Authorized Auto-Generat ed Referral 01/19/2024 01/18/2025 1 1 * Outpatient Procedure (Routine) - Authorized Specialty Diagnoses / Procedures Referred By Dre t Referred To Contact [facility] Diagnoses Iron deficiency anemia, unspecified iron deficiency anemia type Screening for malignant neoplasm of colon Procedures COLONOSCOPY SCREENING COLONOSCOPY FLX DX W/COLLJ SPEC WHEN PFRMD Amparo Martinez APRN.CNP [address] [facility] [address] [place] [address] [facility] Disease [place] [id number] Referral ID Status Reason Start Date Expiration Date Visits Requested Visits Authorized [id number] Authorized Auto-Generat ed Referral 01/19/2024 01/18/2025 1 1 [facility] Summary Purpose Family History No Family History Records FoundNo Family History Records FoundNo Family History Records FoundNo Family History Records FoundNo Family History Records FoundNo Family History Records FoundNo Family History Records FoundNo Family History Records FoundNo Family History Records Found Advance Directives No Advanced Directives Records FoundDocuments on File Type Date Recorded Patient [facility] Expl anation Advance Directive(s) 04/15/2019 8:02 AM Advance Directive(s) 06/30/2017 9:10 AM Advance Directive(s) 03/01/2016 8:02 AM Advance Directive(s) 01/26/2016 7:31 AM Advance Directive(s) 11/02/2015 8:54 AM Advance Directive(s) 11/02/2015 9:04 AM Documents on File Type Date Recorded Patient Rib Builder Expl anation Advance Directive(s) 11/02/2015 8:54 AM Advance Directive(s) 11/02/2015 9:04 AM Documents on File Type Date Recorded Patient Rib Builder Expl anation Advance Directive(s) 11/02/2015 9:04 AM Advance Directive(s) 11/02/2015 8:54 AM Hospital Course Note [id number] Rodrigue Wallace Admitted: 06/15/2018 Discharged: 06/17/2018 Date of : 1950 Physician: Bryce Bolton MD DISCHARGE SUMMARYHOSPITAL COURSE: The patient is a 68-year-old female with past medicalhistory significant for newly diagnosed hypertension and diabetes, whopresented to [facility] as a transfer from [facility]. The patient was found tohave high blood pressure 230/120 at the Cardiology office from where shewas sent to the [facility] and then transferred to the [facility]. At the timeof this presentation, the [...] section and content) DATE CREATED AUTHOR 08/04/[address] [facility] DATE CREATED AUTHOR AUTHOR'S ORGANIZ ATION 08/31/2018 [facility] DATE CREATED AUTHOR AUTHOR'S ORGANIZ ATION 03/12/2019 [facility] DATE CREATED AUTHOR AUTHOR'S ORGANIZ ATION 04/15/2019 [facility] DATE CREATED AUTHOR AUTHOR'S ORGANIZ ATION 07/27/2021 [facility] DATE CREATED AUTHOR AUTHOR'S ORGANIZ ATION 11/15/2021 [facility] DATE CREATED AUTHOR AUTHOR'S ORGANIZ ATION 09/21/2022 [facility] DATE CREATED AUTHOR AUTHOR'S ORGANIZ ATION 12/12/2022 [facility] DATE CREATED AUTHOR AUTHOR'S ORGANIZ ATION 02/19/2024 [facility] EPIC Source Comments (unrecognize d section and content) In the event this informatio n is protected by the Federal Confidentiality of Alcohol and Drug Abuse Patient Records regulations: The Federal rules restrict any use of the information to criminally investigate or prosecute any alcohol or drug abuse patient.[facility] the event this information is protected by the Federal Confidentiality of Alcohol and Drug Abuse Patient Records regulations: The Federal rules restrict any use of the information to criminally investigate or prosecute any alcohol or drug abuse patient.[facility] the event this information is protected by the Federal Confidentiality of Alcohol and Drug Abuse Patient Records regulations: The Federal rules restrict any use of the information to criminally investigate or prosecute any alcohol or drug abuse patient.[facility] the event this information is protected by the Federal Confidentiality of Alcohol and Drug Abuse Patient Records regulations: The Federal rules restrict any use of the information to criminally investigate or prosecute any alcohol or drug abuse patient.[facility] Hospital[facility] the event this information is protected by the Federal Confidentiality of Alcohol and Drug Abuse Patient Records regulations: The Federal rules restrict any use of the information to criminally investigate or prosecute any alcohol or drug abuse patient.[facility] the event this information is protected by the Federal Confidentiality of Alcohol and Drug Abuse Patient Records regulations: The Federal rules restrict any use of the information to criminally investigate or prosecute any alcohol or drug abuse patient.[facility] Hospital[facility] the event this information is protected by the Federal Confidentiality of Alcohol and Drug Abuse Patient Records regulations: The Federal rules restrict any use of the information to criminally investigate or prosecute any alcohol or drug abuse patient.[facility] Reason for Visit (unrecogniz ed section and content) Reason Comments Dexcom Reason Comments Diabetes Reason Comments Patient Update Diabetes Management & Supplies Reason Comments Forms [employer] Reason Comments Patient Update Solara Reason Onset Date Comments Med Refill 11/05/2023 Reason Comments Established Patient Colon consult Care Teams (unrecognized sec tion and content) Healthcare Interpreter Relationship Specialty Start Date End Date Howard Santiago II PCP - General Internal Medicine 06/07/11 Healthcare Interpreter Relationship Specialty Start Date End Date Howard Santiago II PCP - General Internal Medicine 06/07/11 Healthcare Interpreter Relationship Specialty Start Date End Date Howard Santiago II PCP - General Internal Medicine 06/07/11 Healthcare Interpreter Relationship Specialty Start Date End Date Howard Santiago MD [address] [place] [address] PCP - General Internal Medicine 01/27/23 Howard Santiago MD [address] [place] [address] PCP - ACO Reach 02/13/23 Healthcare Interpreter Relationship Specialty Start Date End Date Howard [...] BE BASED ON THE PRIMARY CLINICAL RECORDS. [employer] provides no warranty or guarantee of the accuracy or completeness of information in this document.
[2024-02-26 12:13] LABS: Lactate/Lactic Acid 1.3 mmol/L (0.4-2.0)
[2024-02-26] MEDS: CIPROFLOXACIN IN 5 % DEXTROSE 400 MG/200 ML PIGGYBACK 200 MG IV (12:51)
--- NOTE | 2024-02-26 12:55 | P.HP_ITS ---
HPI H&P: HPI History of Present Illness Chief complaint: LOWER ABDOMINAL PAIN, ACUTE DIVERTICULITIS Narrative: 74 y o female, presented to ED with 2 days hx of nausea, vomiting and diarrhea. She reports inability to keep her food down. Reports poor appetite. Patient reports diarrhea is watery with bright red blood in it. Recently finished oral ciprofloxacin for UTI. She also has lower abdominal pain. Denies urinary complaints. Patient is T1 DM and is on insulin pump for it. W/u in ED revealed hyponatremia, leukocytosis, colitis on CT scan. Admitted for IVF, IV abx as patient is unable to tolerate PO abx and has limited to no PO intake due to nausea/vomiting. Opioid HPI Opioid Management Most Recent Opioid Data: Last Pain Scale 5 09/19/23 11:00 Review of Systems ROS Status of ROS 10 or more systems reviewed and unremark able except as noted in history and below PFSH PFS Medical History (Updated 02/26/24 @ 13:01 by Shaikh Osmany MD) Osteoarthritis ?M19.90 - Unspecified osteoarthritis, unspecified site (ICD-10) COVID ?U07.1 - COVID-19 (ICD-10) GERD (gastroesophageal reflux disease) ?K21.9 - Gastro-esophageal reflux disease without esophagitis (ICD-10) Chronic pain ?G89.29 - Other chronic pain (ICD-10) Depression ?F32.A - Depression, unspecified (ICD-10) Hyperlipidemia ?E78.5 - Hyperlipidemia, unspecified (ICD-10) HTN (hypertension) ?I10 - Essential (primary) hypertension (ICD-10) Diabetes type I ?E10.9 - Type 1 diabetes mellitus without complications (ICD-10) Surgical History (Updated 02/26/24 @ 11:41 by Dorothea Geller RN) H/O discectomy ?Z98.890 - Other specified postprocedural states (ICD-10) H/O: hysterectomy ?Z90.710 - Acquired absence of both cervix and uterus (ICD-10) Family History (Updated 02/26/24 @ 11:43 by Dorothea Geller RN) Father Family history of CHF (congestive heart failure) Family history of COPD (chronic obstructive pulmonary disease) Family history of hypertension Family history of stroke Sister Family history of cancer Family history of diabetes mellitus Brother Family history of cancer Social History (Updated 02/26/24 @ 11:43 by Dorothea Geller RN) Within the past year, how often did you have a drink containing alcohol: never Score interpretation: A score less than 3 is consistent with normal alcohol consumption. Smoking status: Former smoker Non-prescribed substance use: denies use Highest level of school completed/degree received: high school graduate Meds Home Medications and Allergies Home Medications ?Medication ?Instructions ?Recorded ?Confirmed ?Type amlodipine 10 mg tablet 10 mg PO QDAY 09/17/23 02/26/24 History carisoprodol 350 mg tablet 350 mg PO BID 09/17/23 09/17/23 History celecoxib 200 mg capsule 200 mg PO QDAY 09/17/23 02/26/24 History gabapentin 100 mg capsule 100 mg PO BID 09/17/23 02/26/24 History hydrocodone 10 mg-acetaminophen 1 tab PO Q6H PRN pain 09/17/23 02/26/24 History 325 mg tablet lisinopril 20 mg tablet 20 mg PO QDAY 09/17/23 02/26/24 History novolog insulin pump 09/17/23 History rosuvastatin 5 mg tablet 5 mg PO QDAY 09/17/23 09/17/23 History sertraline 100 mg tablet 100 mg PO Q24H 09/17/23 02/26/24 History Allergies Allergy/AdvReac Type Severity Reaction Status Date / Time Penicillins Allergy Verified 02/26/24 08:16 oxycodone AdvReac Intermediate itching Verified 02/26/24 08:16 Exam Constitutional Vital Signs, click to edit/add: Last Vital Signs Temp 98.6 F 02/26/24 08:13 Pulse 98 H 02/26/24 12:00 Resp 18 02/26/24 11:10 BP 156/108 H 02/26/24 11:10 Pulse Ox 95 02/26/24 11:58 O2 Del Method Room Air 02/26/24 11:58 General appearance: cooperative, comfortable, ill appearing and frail appearing Other: Appears dehydrated. HENMT Common normals: normocephalic and head/scalp atraumatic Respiratory Common normals: normal respiratory effort and clear to auscultation bilaterally Effort & inspection: able to speak in complete sentences Cardio Common normals: regular rate, regular rhythm, S1 normal heart sound and S2 normal heart sound GI Common normals: Normal to inspection, nondistended, normoactive bowel sounds present and no hepatosplenomegaly Inspection: normal to inspection Palpation: tender Details: RLQ Percussion: normal to percussion Extremity Common normals: normal to inspection and full ROM Neuro Common normals: oriented x3, CN's II-XII intact bilaterally, moves all extremities and no focal motor deficits Psych Common normals: mental status grossly normal, thought process normal, denies hallucinations, denies homicidal ideation and denies suicidal ideation Results Labs Labs: Short CBC 02/26/24 Range/Units 08:35 WBC 16.2 H (4.0-11.0) 10^3/uL Hgb 11.9 L (12.0-16.0) g/dL Hct 36.3 (36.0-48.0) % Plt Count 297 (150-450) 10^3/uL BMP 02/26/24 08:35 Sodium 126 L Potassium 3.6 Chloride 90 L Carbon Dioxide 26.0 BUN 6.0 L Creatinine 0.70 Glucose 205 H Calcium 8.3 L Liver Function 02/26/24 Range/Units 08:35 Total Bilirubin 0.6 (0.2-1.0) mg/dL AST 16 (15-37) U/L ALT 13 L (14-59) U/L Alkaline Phosphatase 109 (46-116) U/L Albumin 3.3 L (3.4-5.0) g/dL Urine 02/26/24 Range/Units 10:22 Urine Color Lt. yellow (YELLOW) Urine Clarity Clear (CLEAR) Urine pH 6.0 (5.0-9.0) Ur Specific [place] <=1.005 A (1.005-1.025) Urine Protein Negative (NEG/TRACE) mg/dL Urine Glucose (UA) 250 A (NEGATIVE) mg/dL Assessment and Plan Assessment and Plan (1) Acute diverticulitis: Assessment and Plan: Acute diverticulitis/colitis on CT scan. c/w IV rocephin/flagyl. C/w IVF Zofran as needed for N/V. Full liquid diet, advance as tolerated. Check c diff as recent abx use. (2) Nausea and vomiting: Assessment and Plan: Zofran as needed. Advance diet as tolerated. Qualifiers: Vomiting type: unspecified Qualified Code(s): R11.2 - Nausea with vomiting, unspecified (3) Hyponatremia: Assessment and Plan: Serum sodium 126 on arrival, likely hypovolemic hyponatremia. On IVF. Monitor serum sodium closely. (4) Lactic acidosis: Assessment and Plan: Repeat lactate. C/w IVF. (5) HTN (hypertension): Assessment and Plan: BP at goal. C/w home medications. Qualifiers: Hypertension type: primary hypertension Qualified Code(s): I10 - Essential (primary) hypertension (6) Diabetes type I: Assessment and Plan: On Insulin pump. C/w same. Qualifiers: Diabetes mellitus complication status: without complication Qualified Code(s): E10.9 - Type 1 diabetes mellitus without complications (7) GERD (gastroesophageal reflux disease): Assessment and Plan: C/w protonix. Qualifiers: Esophagitis presence: without esophagitis Qualified Code(s): K21.9 - Gastro-esophageal reflux disease without esophagitis (8) Rectal bleed: Assessment and Plan: Monitor Hemoglobin. Likely due to colitis vs hemorrhoids. Monitor. Plan Inpatient admission as patient presented with sig leukocytosis, Hyponatremia, lactic acidosis, rectal bleeding and anticipated to require minimum inpatient treatment for over 2 MN to safely monitor/treat her acute illness as she is at high risk of poor outcome due to T1 DM and can potentially develop DKA, hypoglycemia and will require close monitoring for early detection /treatment of said complications
--- NOTE | 2024-02-26 13:02 | SWNOTE1 ---
SW met with pt to discuss dc needs. Pt lives at home with her . Pt is independent with all ADL's and does not use any DME at home. Pt has a tri-level home and goes up and down the stairs throughout the day. Pt voices she does not have any discharge concerns/needs at this time. SW to follow as needed. Important Message from Medicare reviewed and discussed with patient. Pt. verbalized understanding and signed the form. Original given to patient and copy placed in patient?s chart.
[2024-02-26] MEDS: ENOXAPARIN SODIUM 40 MG/0.4 ML SYRINGE SUBQ (13:26)
[2024-02-26] MEDS: PANTOPRAZOLE SODIUM 40 MG VIAL IV (13:26)
[2024-02-26] MEDS: GABAPENTIN 100 MG CAPSULE PO ×2 (13:27→21:59)
[2024-02-26] MEDS: LISINOPRIL 20 MG TABLET PO (13:34)
[2024-02-26] MEDS: SERTRALINE HCL 100 MG TABLET PO (13:34)
[2024-02-26] MEDS: ONDANSETRON PF 4 MG/2 ML VIAL IV (13:34)
[2024-02-26] MEDS: AMLODIPINE BESYLATE 5 MG TABLET 10 MG PO (13:34)
[2024-02-26] MEDS: OXYCODONE HCL 5 MG TABLET PO (13:34)
[2024-02-26] MEDS: CEFTRIAXONE 1,000 MG in 0.9 % SODIUM CHLORIDE 50 ML 100 MG IV (15:39)
[2024-02-26] MEDS: LACTATED RINGER'S SOLUTION 1,000 ML 125 ML IV (15:39)
[2024-02-26] MEDS: INSULIN ASPART 300 UNIT/3 ML PEN SUBQ (17:16)
[2024-02-26 18:20] LABS: Hematocrit 34.4 % (36.0-48.0); Hemoglobin 11.1 g/dL (12.0-16.0)
[2024-02-26 18:32] LABS: Anion Gap 16.4; BUN Creatinine Ratio 10.3; Calcium 8.4 mg/dL (8.5-10.1); Carbon Dioxide 22.1 mmol/L (21.0-32.0); Chloride 92 mmol/L (98-107); Estimated GFR (African America >60 (>=60); Estimated GFR (Non-African Ame >60 (>=60); Glucose 253 mg/dL (74-106); Potassium 3.5 mmol/L (3.5-5.1); Sodium 127 mmol/L (136-145)
[2024-02-26] MEDS: ATORVASTATIN CALCIUM 20 MG TABLET PO (22:00)
[2024-02-27] VITALS (10 sets, daily range): BP systolic 128–148; BP diastolic 72–83; PULSE 71–103; TEMP 36.8–37.2; O2SAT 92–95
[2024-02-27] MEDS: LACTATED RINGER'S SOLUTION 1,000 ML 125 ML IV ×2 (00:01→08:15)
[2024-02-27] MEDS: METRONIDAZOLE/SODIUM CHLORIDE 500 MG/100 ML PREMIX 100 MG IV ×2 (04:33→12:23)
[2024-02-27 04:47] LABS: Basophils Percent Auto 0.2 % (0.2-2.0); Hemoglobin 9.6 g/dL (12.0-16.0); Immature Granulocytes Abs Auto 0.05 10^3/uL (0.00-0.03); Immature Granulocytes Pct Auto 0.4 % (0.0-0.5); Lymphocytes Absolute Auto 1.7 10^3/uL (1.2-3.8); Lymphocytes Percent Auto 14.1 % (20.5-60.0); Mean Corpuscular HGB Conc 33.1 g/dL (29.9-35.2); Mean Corpuscular Hemoglobin 26.6 pg (26.7-34.0); Mean Corpuscular Volume 80.3 fL (81.0-99.0); Mean Platelet Volume 8.9 fL (9.5-13.5); Monocytes Absolute Auto 0.9 10^3/uL (0.3-0.8); Neutrophils Absolute Auto 9.7 10^3/uL (1.4-6.5); Neutrophils Percent Auto 78.3 % (43.0-75.0); Platelet Count 220 10^3/uL (150-450); Red Blood Count 3.61 10^6/uL (4.20-5.40); Red Cell Distribution Width 20.1 % (11.0-15.0); White Blood Count 12.4 10^3/uL (4.0-11.0)
[2024-02-27] MEDS: TRAMADOL HCL 50 MG TABLET PO (05:33)
[2024-02-27 05:36] LABS: Alanine Aminotransferase <6 U/L (14-59); Albumin Globulin Ratio 0.9; Albumin Level 2.8 g/dL (3.4-5.0); Alkaline Phosphatase 83 U/L (46-116); Anion Gap 13.5; Aspartate Amino Transferase 12 U/L (15-37); BUN Creatinine Ratio 4.1; Bilirubin Total 0.5 mg/dL (0.2-1.0); Calcium 8.4 mg/dL (8.5-10.1); Carbon Dioxide 25.1 mmol/L (21.0-32.0); Chloride 96 mmol/L (98-107); Estimated GFR (African America >60 (>=60); Estimated GFR (Non-African Ame >60 (>=60); Globulin 3.1 g/dL; Glucose 198 mg/dL (74-106); Potassium 3.6 mmol/L (3.5-5.1); Sodium 131 mmol/L (136-145); Total Protein 5.9 g/dL (6.4-8.2)
[2024-02-27] MEDS: INSULIN ASPART 300 UNIT/3 ML PEN SUBQ ×2 (09:49→12:24)
[2024-02-27] MEDS: AMLODIPINE BESYLATE 5 MG TABLET 10 MG PO (09:50)
[2024-02-27] MEDS: GABAPENTIN 100 MG CAPSULE PO (09:50)
[2024-02-27] MEDS: SERTRALINE HCL 100 MG TABLET PO (09:50)
[2024-02-27] MEDS: LISINOPRIL 20 MG TABLET PO (09:50)
--- NOTE | 2024-02-27 12:00 | P.DS_ITS ---
DS: Providers Provider Date of admission: 02/26/24 11:28 Primary care physician: KANDACE QUIROZ Admitting clinician: Shaikh Osmany Attending physician on admission: Shaikh Osmany Attending physician on discharge: Shaikh Osmany Discharging clinician: Shaikh Osmany Anticipated date of discharge: 02/27/24 DS: Diagnosis Discharge Diagnosis (1) Acute diverticulitis: Assessment and plan: Symptoms improved. Recovered quicker than anticipated. Tolerating PO diet. Denies nausea/vomiting or diarrhea. Stable for discharge on oral abx (2) Nausea and vomiting: Assessment and plan: Due to diverticulitis, resolved. Tolerating PO diet. Qualifiers: Vomiting type: unspecified Qualified Code(s): R11.2 - Nausea with vomiting, unspecified (3) Hyponatremia: Assessment and plan: hypovolemic hyponatremia, improved with IV hydration. (4) Lactic acidosis: Assessment and plan: resolved with hydration (5) HTN (hypertension): Assessment and plan: Stable, c/w home medications Qualifiers: Hypertension type: primary hypertension Qualified Code(s): I10 - Essential (primary) hypertension (6) Diabetes type I: Assessment and plan: C/w insulin pump Qualifiers: Diabetes mellitus complication status: without complication Qualified Code(s): E10.9 - Type 1 diabetes mellitus without complications (7) GERD (gastroesophageal reflux disease): Assessment and plan: C/w PPI as before. Qualifiers: Esophagitis presence: without esophagitis Qualified Code(s): K21.9 - Gastro-esophageal reflux disease without esophagitis (8) Rectal bleed: Assessment and plan: No bleeding since admission. Hb stable. Monitor and will benefit from outpatient colonoscopy. DS: Summary Hospital Course Hospital Course: 74-year-old female presented with nausea, vomiting, lower abdominal pain, diarrhea with bright red blood in it for 2 days. She reported poor appetite, inability to tolerate oral diet. In ER was consistent with acute diverticulitis and hyponatremia. She was admitted for IV fluids for dehydration and hyponatremia and IV antibiotics for acute diverticulitis as she cannot tolerate oral antibiotics. She was initially started on full liquid diet and gradually advanced as she tolerated and was able to tolerate soft diet earlier today. She denies nausea and vomiting. Still has poor appetite but denies abdominal pain or diarrhea. Her hyponatremia is also improved with IV hydration. Patient improved/recovered quicker than anticipated with IV fluids and antibiotics. She is medically stable for discharge on oral antibiotics. I will also order Zofran for her as needed for nausea and vomiting. She was educated on worrisome signs and symptoms for which she should come to ER for evaluation. Patient recommended to follow-up with PCP in 1 week. Status at Discharge Functional status at discharge: independent ambulation Overall status at discharge: patient is back to baseline Time Spent with Patient Time attestation: Total time spent providing and/or coordinating discharge services: Time spent: greater than 30 minutes Exam Constitutional Vital Signs, click to edit/add: Last Vital Signs Temp 98.3 F 02/27/24 08:17 Pulse 71 02/27/24 10:00 Resp 18 02/27/24 08:17 BP 128/72 02/27/24 08:17 Pulse Ox 95 02/27/24 11:33 O2 Del Method Room Air 02/27/24 11:33 General appearance: cooperative and comfortable Respiratory Common normals: normal respiratory effort and clear to auscultation bilaterally Effort & inspection: able to speak in complete sentences Cardio Common normals: regular rate, regular rhythm, S1 normal heart sound and S2 normal heart sound GI Common normals: Normal to inspection, nondistended, normoactive bowel sounds present and no hepatosplenomegaly Inspection: normal to inspection Palpation: tender Details: RLQ Percussion: normal to percussion Neuro Common normals: oriented x3, CN's II-XII intact bilaterally, moves all extremities and no focal motor deficits Psych Common normals: mental status grossly normal, thought process normal, denies hallucinations, denies homicidal ideation and denies suicidal ideation DS: Data Data Completed and Pending Labs on day of discharge: Labs from last 24 hours 02/27/24 02/26/24 02/26/24 04:36 18:08 11:09 WBC 12.4 H RBC 3.61 L Hgb 9.6 L 11.1 L Hct 29.0 L 34.4 L MCV 80.3 L MCH 26.6 L MCHC 33.1 RDW 20.1 H Plt Count 220 MPV 8.9 L Neut % (Auto) 78.3 H Lymph % (Auto) 14.1 L [place] % (Auto) 7.0 Eos % (Auto) 0.0 L Baso % (Auto) 0.2 Neut # (Auto) 9.7 H Lymph # (Auto) 1.7 [place] # (Auto) 0.9 H Eos # (Auto) 0.0 Baso # (Auto) 0.0 Abs Immat Gran (auto) 0.05 H Imm/Tot Granulo (auto) 0.4 Sodium 131 L 127 L Potassium 3.6 3.5 Chloride 96 L 92 L Carbon Dioxide 25.1 22.1 Anion Gap 13.5 16.4 BUN 2.0 L 7.0 Creatinine 0.49 L 0.68 Est GFR ( Amer) >60 >60 Est GFR (Non-Af Amer) >60 >60 BUN/Creatinine Ratio 4.1 10.3 Glucose 198 H 253 H Lactate 1.3 Calcium 8.4 L 8.4 L Total Bilirubin 0.5 AST 12 L ALT <6 L Alkaline Phosphatase 83 Total Protein 5.9 L Albumin 2.8 L Globulin 3.1 Albumin/Globulin Ratio 0.9 Discharge Plan Discharge Disposition: Home, Self-Care Discharge Medications: New levofloxacin 750 mg tablet 750 mg PO DAILY 7 Days Qty: 7 0RF metronidazole 500 mg tablet 500 mg PO Q8H 7 Days Qty: 21 0RF Continued amlodipine 10 mg tablet 10 mg PO QDAY lisinopril 20 mg tablet 20 mg PO QDAY rosuvastatin 5 mg tablet 5 mg PO QDAY sertraline 100 mg tablet 100 mg PO Q24H celecoxib 200 mg capsule 200 mg PO QDAY carisoprodol 350 mg tablet 350 mg PO BID gabapentin 100 mg capsule 100 mg PO BID hydrocodone-acetaminophen 10-325 mg tablet 1 tab PO Q6H PRN (Reason: pain) novolog insulin pump Print Language: [place] Forms: Portal Instructions Follow Up Appointments: March 03 @ 10:30am with Mira Lopez NP (Dr. Quiroz's office) [phone]
--- NOTE | 2024-02-27 12:07 | CM.NOTE ---
Rounds made with Dr. Ceron. Plan for discharge today. Follow up with PCP in about a week.
[2024-02-27] MEDS: PANTOPRAZOLE SODIUM 40 MG VIAL IV (12:23)
== END 2024-02-27 15:28 | disposition home or self-care (01) | DRG 392 ==
LOC: ER 11:21 → MS 11:33
PROVIDERS: Admitting Provider Internal Medicine; Emergency Provider Emergency Medicine; PCP Internal Medicine; Visit Provider Internal Medicine
DX: K57.32 Diverticulitis of large intestine without perforation or abscess without bleeding (principal); E87.1 Hypo-osmolality and hyponatremia; E87.20 Acidosis, unspecified; K62.5 Hemorrhage of anus and rectum; R11.2 Nausea with vomiting, unspecified; I10 Essential (primary) hypertension; E10.9 Type 1 diabetes mellitus without complications; K21.9 Gastro-esophageal reflux disease without esophagitis; Z79.4 Long term (current) use of insulin; Z96.41 Presence of insulin pump (external) (internal); M19.90 Unspecified osteoarthritis, unspecified site; F32.A Depression, unspecified; G89.29 Other chronic pain; E78.5 Hyperlipidemia, unspecified; Z87.891 Personal history of nicotine dependence; Z79.899 Other long term (current) drug therapy; Z90.710 Acquired absence of both cervix and uterus; Z86.16 Personal history of COVID-19; Z87.440 Personal history of urinary (tract) infections; Z98.890 Other specified postprocedural states
CPT/HCPCS: 36415; 74176; 80048; 80053; 81001; 82948; 83605; 84484; 85014; 85018; 85025; 85610; 86850; 86900; 86901; 87040; 87493; 93005; 94761; 96361; 96366; 96367; 96368; 96372; 96375; 96376; 99285

== ENCOUNTER 2024-03-05 11:41 | Inpatient (IN) | payer MEDICARE, OTHER, SELFPAY ==
[2024-03-05] VITALS (19 sets, daily range): BP systolic 89–137; BP diastolic 45–71; PULSE 73–94; TEMP 36.4–36.9; O2SAT 93–98; BMI 26.1
--- NOTE | 2024-03-05 12:11 | ECG_ITS ---
[facility] Test Date: 2024-03-05 Pat Name: RODRIGUE WALLACE Department: Room: - Gender: Female Cash Management Officer: : 1950 Requested By: KANDACE QUIROZ Order Number: [id number] Reading MD: JOSÉ MANUEL QUINTANILLA Measurements Intervals [place] Rate: 75 P: 7 DC: 120 QRS: 47 QRSD: 82 T: 33 QT: 478 QTc: 507 Interpretive Statements 1100 Sinus rhythm 4664 [place] abnormality, possible inferolateral ischemia 9150 abnormal ECG Electronically Signed On 03-05-2024 18:21:05 EDT by JOSÉ MANUEL QUINTANILLA
--- NOTE | 2024-03-05 12:12 | ED.GENADUL1 ---
HPI HPI - General Adult General Chief complaint: Fever Stated complaint: LOW BLOOD PRESSURE/ FEVER Time Seen by Provider: 03/05/24 12:01 Source: patient Mode of arrival: Wheelchair History of Present Illness HPI narrative: 74-year-old female presents for not feeling well. Last week she was treated for diverticulitis. She spent 1 night in the hospital and was sent home on a course of Levaquin which she has now finished and she stopped the Flagyl yesterday. She felt like it was making her worse. She was at her nurse practitioner's office today and reportedly had a fever. She did not have a fever upon arrival and has not had any antipyretics today. Her blood pressure was reportedly low as well. She states that her appetite has not been good, she has not been eating much. She has she states been drinking plenty of fluids including Gatorade Related Data Home Medications ?Medication ?Instructions ?Recorded ?Confirmed amlodipine 10 mg tablet 10 mg PO QDAY 09/17/23 02/26/24 carisoprodol 350 mg tablet 350 mg PO BID 09/17/23 09/17/23 celecoxib 200 mg capsule 200 mg PO QDAY 09/17/23 02/26/24 gabapentin 100 mg capsule 100 mg PO BID 09/17/23 02/26/24 hydrocodone 10 mg-acetaminophen 1 tab PO Q6H PRN pain 09/17/23 02/26/24 325 mg tablet lisinopril 20 mg tablet 20 mg PO QDAY 09/17/23 02/26/24 novolog insulin pump 09/17/23 rosuvastatin 5 mg tablet 5 mg PO QDAY 09/17/23 09/17/23 sertraline 100 mg tablet 100 mg PO Q24H 09/17/23 02/26/24 Previous Rx's ?Medication ?Instructions ?Recorded levofloxacin 750 mg tablet 750 mg PO DAILY 7 days #7 tabs 02/27/24 metronidazole 500 mg tablet 500 mg PO Q8H 7 days #21 tabs 02/27/24 Allergies Allergy/AdvReac Type Severity Reaction Status Date / Time Penicillins Allergy Verified 02/26/24 08:16 oxycodone AdvReac Intermediate itching Verified 02/26/24 08:16 Opioid HPI Opioid Management Most Recent Opioid Data: Last Pain Scale 4 02/27/24 15:00 Last Pain Assessment 02/27/24 15:00 Last ORT Total Score 1 02/26/24 11:44 Last ORT Risk Category Low Risk 02/26/24 11:44 Review of Systems ROS Narrative A ten point review of systems is negative except as noted above. PFSH PFS Medical History (Updated 03/05/24 @ 14:30 by Ruddy Izaguirre MD) Rectal bleed ?K62.5 - Hemorrhage of anus and rectum (ICD-10) Acute diverticulitis ?K57.92 - Diverticulitis of intestine, part unspecified, without perforation or abscess without bleeding (ICD-10) Osteoarthritis ?M19.90 - Unspecified osteoarthritis, unspecified site (ICD-10) COVID ?U07.1 - COVID-19 (ICD-10) GERD (gastroesophageal reflux disease) ?K21.9 - Gastro-esophageal reflux disease without esophagitis (ICD-10) Chronic pain ?G89.29 - Other chronic pain (ICD-10) Depression ?F32.A - Depression, unspecified (ICD-10) Hyperlipidemia ?E78.5 - Hyperlipidemia, unspecified (ICD-10) HTN (hypertension) ?I10 - Essential (primary) hypertension (ICD-10) Diabetes type I ?E10.9 - Type 1 diabetes mellitus without complications (ICD-10) Surgical History (Updated 02/26/24 @ 11:41 by Dorothea Geller RN) H/O discectomy ?Z98.890 - Other specified postprocedural states (ICD-10) H/O: hysterectomy ?Z90.710 - Acquired absence of both cervix and uterus (ICD-10) Family History (Updated 02/26/24 @ 11:43 by Dorothea Geller RN) Father Family history of CHF (congestive heart failure) Family history of COPD (chronic obstructive pulmonary disease) Family history of hypertension Family history of stroke Sister Family history of cancer Family history of diabetes mellitus Brother Family history of cancer Social History (Updated 02/26/24 @ 11:43 by Dorothea Geller RN) Within the past year, how often did you have a drink containing alcohol: never Score interpretation: A score less than 3 is consistent with normal alcohol consumption. Smoking status: Former smoker Non-prescribed substance use: denies use Highest level of school completed/degree received: high school graduate Exam Narrative Exam Narrative: Nurses note and vital signs reviewed and patient is not hypoxic. General: The patient appears well and in no apparent distress. Skin: Warm, dry, no pallor noted. There is no rash noted. Head: Normocephalic, atraumatic Eye: Normal conjunctiva, no drainage, EOMI. PERRL Ears, Nose, Mouth, and Throat: oral mucosa is mildly dry. Nares patent. Cardiovascular: Regular Rate and Rhythm Respiratory: Patient is in no distress, no accessory muscle use, lungs are clear to auscultation, no wheezing, rales or rhonchi Back: non-tender GI: Soft and nontender Musculoskeletal: The patient has no evidence of calf tenderness, no pitting edema, symmetrical pulses noted bilaterally Neurological: A&O, normal speech Psychiatric: Cooperative Constitutional Vital Signs, click to edit/add: Last Vital Signs Temp 98.1 F 03/05/24 11:52 Pulse 73 03/05/24 11:52 Resp 18 03/05/24 11:52 BP 110/61 03/05/24 11:52 Pulse Ox 97 03/05/24 11:52 O2 Del Method Room Air 03/05/24 11:52 Course Vital Signs Vital signs: Vital Signs Temperature 98.1 F 03/05/24 11:52 Pulse Rate 73 03/05/24 11:52 Respiratory Rate 18 03/05/24 11:52 Blood Pressure 110/61 03/05/24 11:52 Pulse Oximetry 97 03/05/24 11:52 Oxygen Delivery Method Room Air 03/05/24 11:52 Temperature 98.1 F 03/05/24 11:52 Pulse Rate 73 03/05/24 11:52 Respiratory Rate 18 03/05/24 11:52 Blood Pressure 110/61 03/05/24 11:52 Pulse Oximetry 97 03/05/24 11:52 Oxygen Delivery Method Room Air 03/05/24 11:52 Medical Decision Making MDM Narrative Medical decision making narrative: Hyponatremia is identified. This may be due to water ingestion. She reports drinking large amounts of plain water. She did not have a fever here and the CT of her abdomen shows no evidence of diverticulitis. WBC is normal and no evidence of UTI on the urinalysis. She will likely need fluid restriction and this will likely correct the hyponatremia. Treatment diagnosis and disposition were discussed with the patient and her . Differential Diagnosis Differential Diagnosis: Hyponatremia, diverticulitis, UTI Lab Data Lab results reviewed: Yes I reviewed the patient's lab results Labs: Lab Results 03/05/24 03/05/24 Range/Units 12:09 12:27 WBC 10.6 (4.0-11.0) 10^3/uL RBC 4.38 (4.20-5.40) 10^6/uL Hgb 11.8 L (12.0-16.0) g/dL Hct 34.5 L (36.0-48.0) % MCV 78.8 L (81.0-99.0) fL MCH 26.9 (26.7-34.0) pg MCHC 34.2 (29.9-35.2) g/dL RDW 18.5 H (11.0-15.0) % Plt Count 391 (150-450) 10^3/uL MPV 9.8 (9.5-13.5) fL Neut % (Auto) 72.7 (43.0-75.0) % Lymph % (Auto) 16.8 L (20.5-60.0) % [place] % (Auto) 8.7 (1.7-12.0) % Eos % (Auto) 0.3 L (0.9-7.0) % Baso % (Auto) 0.1 L (0.2-2.0) % Neut # (Auto) 7.7 H (1.4-6.5) 10^3/uL Lymph # (Auto) 1.8 (1.2-3.8) 10^3/uL [place] # (Auto) 0.9 H (0.3-0.8) 10^3/uL Eos # (Auto) 0.0 (0.0-0.7) 10^3/uL Baso # (Auto) 0.0 (0.0-0.1) 10^3/uL Abs Immat Gran (auto) 0.15 H (0.00-0.03) 10^3/uL Imm/Tot Granulo (auto) 1.4 H (0.0-0.5) % Sodium 121 L* (136-145) mmol/L Potassium 2.4 L* (3.5-5.1) mmol/L Chloride 78 L* (98-107) mmol/L Carbon Dioxide 24.7 (21.0-32.0) mmol/L Anion Gap 20.7 BUN 5.0 L (7.0-18.0) mg/dL Creatinine 0.79 (0.55-1.02) mg/dL Est GFR ( Amer) >60 (>=60) Est GFR (Non-Af Amer) >60 (>=60) BUN/Creatinine Ratio 6.3 Glucose 284 H (74-106) mg/dL Calcium 8.2 L (8.5-10.1) mg/dL Urine Color Yellow (YELLOW) Urine Clarity Clear (CLEAR) Urine pH 6.0 (5.0-9.0) Ur Specific [place] >=1.030 A (1.005-1.025) Urine Protein Negative (NEG/TRACE) mg/dL Urine Glucose (UA) Negative (NEGATIVE) mg/dL Urine Ketones >=80 A (NEGATIVE) mg/dL Urine Occult Blood Negative (NEGATIVE) Urine Nitrite Negative (NEGATIVE) Urine Bilirubin Small A (NEGATIVE) Urine Urobilinogen 0.2 (0.2-1.0) EU/dL Ur Leukocyte Esterase Negative (NEGATIVE) Urine RBC None seen (0-2) #/HPF Urine WBC 0-2 A (NONE SEEN) #/HPF Ur Squamous Epith Cells Few A (NONE/RARE) #/LPF Urine Bacteria None seen (NONE SEEN) #/HPF Urine Mucus None seen (NONE SEEN) Imaging Data CT scan - abdomen: Radiologist's impression: ITS Impressions Abdomen/Pelvis CT 03/05/24 12:36 IMPRESSION: Diverticulosis without evidence of acute diverticulitis No acute intraperitoneal abnormality Electronically authenticated by: JERAMY REYNA Date: 03/05/2024 13:47 ECG Data Attestation: I personally reviewed and interpreted this ECG as follows: (EKG on my interpretation shows normal sinus rhythm with a rate of 75.) Discharge Plan Discharge Chief Complaint: Fever Clinical Impression: Hyponatremia Patient Disposition: Admitted As Inpatient Time of Disposition Decision: 14:30 Condition: Good
--- OUTSIDE RECORDS SUMMARY | 2024-03-05 12:14 | XMS_ITS | CCD ---
Author Organization [facility] Care Team Providers Care Contracts Attorney Name Role Phone PHYSICIAN, DEFAULT Unavailable Unavailable PHYSICIAN, DEFAULT Unavailable Unavailable PHYSICIAN, DEFAULT Unavailable Unavailable PHYSICIAN, DEFAULT Unavailable Unavailable ELTAHAWY, EHAB A Unavailable Unavailable ZOILATAHAWY, EHAB A Unavailable Unavailable HOWARD SANTIAGO Unavailable Unavailable HOWARD SANTIAGO Unavailable Unavailable AHMED, BRYCE Unavailable Unavailable DALIAMED, BRYCE Unavailable Unavailable HOWARD SANTIAGO Unavailable Unavailable [...] Care Unavailable JACK, DR JERONIMO Consulting Unavailable BELLEVUE, DR JERAMY Martinez Consulting Unavailable TRUE COELLO Consulting Unavailable Howard Santiago II Primary Care Provider ARACELI NATHAN Attending Unavailable SPRING HUNTER Referring Unavailable HOWARD SANTIAGO II Primary Care Unavailable ARACELI NATHAN Attending Unavailable ARACELI NATHAN Referring Unavailable HOWARD SANTIAGO II Primary Care Unavailable Howard Santiago MD Primary Care Provider Howard Santiago MD Unavailable [phone] Jack BRADFORD MD, Daniel B Primary Care Provider [phone] HOWARD SANTIAGO Attending Unavailable DELFIN ZHENG Attending Unavailable DELFIN ZHENG Attending Unavailable DELFIN ZHENG Attending Unavailable HOWARD SANTIAGO Referring Unavailable HOWARD SANTIAGO Attending Unavailable Allergies Allergy Classification Reported Allergen(s) Allergy Type Date of Onset Reaction(s) Facility (3 sources) Penicillins; Translations: [PENICILLINS] Drug allergy (disorder) 06-28-20 05 [facility] Repository (1 source) No Known Allergies; Translations: [No Known Allergies] Propensity to adverse reactions (disorder) [facility] Repository (1 source) Penicillin; Translations: [penicillin] Drug Allergy [facility] Repository (8 sources) Alendronate; Translations: [ALENDRONATE SODIUM] Drug Allergy 11-08-19 15 Other: See Comments [facility] Work Phone: (8 sources) Nitrofurantoin; Translations: [NITROFURANTOIN MACROCRYSTAL] Drug Allergy 05-23-20 16 Vomiting [facility] (1 source) Penicillins Propensity to adverse reactions 06-28-20 05 Itching [facility] (6 sources) Penicillins Propensity to adverse reactions 06-28-20 05 Itching [facility] (1 source) Acetaminophen / oxyCODONE Drug Allergy 01-29-20 23 Rash [facility] (1 source) Alendronate Drug Allergy 11-08-19 15 Other [facility] (1 source) hydroCHLOROthiazide Drug Allergy 01-29-20 23 [facility] (1 source) Nitrofurantoin Drug Allergy 01-29-20 23 [facility] (1 source) Penicillin G Drug Allergy 01-29-20 23 Hives [facility] (1 source) tamsulosin Drug Allergy 02-20-20 23 [facility] Medications Current Medications Medication Drug Class(es) Dates Sig (Normalized) Sig (Original) acetaminophen 325 mg / HYDROcodone bitartrate 10 mg oral tablet (9 sources) Opioid Agonist Start: 10-06-2023 End: 12-05-2023 take 1 tablet by mouth every six hours for pain HYDROcodone-aceta minophen ([place]) 10-325 MG tablet Indications: Pain , M15.0 Take 1 tablet by mouth every 6 (six) hours if needed for moderate pain 120 tablet 0 11/05/2023 12/05/2023 Active Start: 12-05-2014 HYDROcodone-ac etaminophen (NORCO) 5-325 mg per tablet Take one-two tablets every six hours as needed for pain 0 12/05/2014 Active Comment on above: Take one-two tablets every six hours as needed for pain [id number] 200 actuat albuterol 0.09 mg/actuat metered dose [...] Start: 02-05-2007 take 1 tablet by bernabe once daily Aspirin 81 mg ORAL Tab [...] Comment on above: Take 1 capsule by [facility] once daily. cholecalciferol 0.025 mg oral tablet (8 sources) Vitamin D Start: 016 take 2 tablets by mouth once daily cholecalciferol (VITAMIN D3) 1,000 unit tab Take 2 tablets by mouth once daily. 0 11/21/2015 Active Start: 02-10-2012 take 1 capsule by mo [facility] in the morning cholecalciferol (Vitamin D-3) 50 MCG (1999 [place]) capsule Take 2,000 Units by mouth in the morning. 0 02/10/2012 Active Comment on above: Take 2 tablets by [facility] once daily. Continuous Blood Gluc Sensor (Dexcom [...] Comment on above: Take 1 capsule by [facility] once daily. ferrous sulfate 325 mg oral [...] 1 tablet by bernabe th once daily. mometasone furoate 0.05 mg/actuat metered [...] NEXT METER) Blood-Glucose Meter,Continuo us (DEXCOM G6 ELECTRONICS UTILITY WORKER) [facility] ([facility] sources[facility] Start: 01-01-2022 End: 01-19-2024 Blood-Glucose Meter,Continuo us (DEXCOM G6 ELECTRONICS UTILITY WORKER) [facility] Indications: 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) , Insulin pump status USE TO TEST BLOOD SUGARS 5 TIMES DAILY 1 Each 0 01/01/2022 01/19/2024 Discontinued Start: 01-01-2022 Blood-Glucose Meter,Continuous (DEXCOM G6 ELECTRONICS UTILITY WORKER) [facility] Indications: 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) , Insulin pump status USE TO TEST BLOOD SUGARS 5 TIMES DAILY 1 Each 0 01/01/2022 Active Start: 01-01-2022 End: 01-01-2022 Blood-Glucose Meter,Continuo us (DEXCOM G6 ELECTRONICS UTILITY WORKER) [facility] Indications: 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) , Insulin pump status USE TO TEST BLOOD SUGARS 5 TIMES DAILY 1 Each 0 01/01/2022 01/01/2022 Discontinued Start: 11-08-2021 End: 01-01-2022 Blood-Glucose Meter,Continuo us (DEXCOM G6 ELECTRONICS UTILITY WORKER) [facility] Indications: 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) , Insulin pump status USE TO TEST BLOOD SUGARS 5 TIMES DAILY 1 Each 11/08/2021 01/01/2022 Discontinued Comment on above: USE [...] sources) Dietary Cholesterol Absorption Inhibitor Start: 09-05-20 17 End: 01-19-20 24 ezetimibe (ZETIA) 10 mg tablet Take 1 tab daily 100 tablet 3 09/05/2017 01/19/2024 Discontinued Comment on above: Take 1 tab daily glucagon (rdna) 1 mg injection (7 sources) Antihypoglycemic Agent Start: 03-06-20 17 End: 01-19-20 24 glucagon, human recombinant, (GLUCAGON EMERGENCY KIT, HUMAN,) 1 mg injection Inject (1)one mg for insulin shock. 1 Each 6 03/06/2017 01/19/2024 Discontinued Comment on above: Inject (1)one mg for insulin shock. glucose 0.4 mg/mg oral gel (7 sources) Start: 11-04-19 14 End: 01-19-20 dextrose (GLUCOSE GEL) 40 % [...] Take 1 tablet by bernabe once daily. Problems Active Problems Problem Classification Problem Date [...] 06-15-2018 01-28-2023 Chronic Other aftercare (1 source) buttermaker continuous churn (current) use of aspirin; Translations: [PENITENTIARY (CURRENT) USE OF ASPIRIN] Onset: 06-25-2018 Episodic Other aftercare (1 source) intermediate (current) use of insulin; Translations: [ACCOUNT SUPERVISOR (CURRENT) USE OF INSULIN] Onset: 06-25-2018 Episodic [...] HEART DIS AND OTH DIS OF [facility] S[facility]] Onset: 06-15-2018 Episodic Unclassified (2 sources) Unknown / UNK(Unknown) Onset: 06-25-2018 Past or Other Problems Problem Classification Problem Date Documented Date Episodic/Chronic Chronic obstructive pulmonary disease and bronchiectasis (7 sources) Bronchitis; Translations: [Bronchitis, not specified as acute or chronic] Onset: 02-21-2016 Episodic Complication of device; implant or [...] sources) Long-term current use of insulin; Translations: [buttermaker continuous churn (current) use of insulin] Onset: 0 Resolved: [...] without complications] Onset: 0 Resolved: 6 08-23-2016 Results Test Name Value Interpretation Reference Range Facility [facility] 12-11-2022 CNPN Telephone (ENDOLN) -------- RODRIGUE WALLACE ([id number]) 1950 F Date Time Provider Department 12/11/22 SPRING HUNTER ENDOLN During your visit today, we recorded the following information about you: Mj Krueger MA 12/11/2022 4:30 PM Signed Received a fax from [employer] requesting C Peptide and Fasting glucose under 225 mg/dl done on the same day and A1C. Printed labs from 01/05/2003 and and printed A1C's from 01/27/13 AND 04/26/22, faxed to [phone]. Confirmation received. Allergies As of Date: 12/11/2022 Noted Allergy Reaction FOSAMAX (ALENDRONATE SODIUM) 11/08/2014 14 - Other: See Comments Comments: Leg cramps, severe MACRODANTIN (NITROFURANTOIN MACRO*05/23/2016 11 - Vomiting PENICILLINS 06/28/2005 9 - Itching Date Reviewed: 04/26/2022 Reviewed by: Araceli Nathan APRN.IMAGING SCHEDULER - Fully Assessed Reason for Visit: Forms [913] Cmt: [employer] Prescriptions as of 12/11/2022 - amLODIPine (NORVASC) 10 mg tablet - gabapentin (NEURONTIN) 100 mg capsule - NOVOLOG U-100 INSULIN ASPART 100 unit/mL Use via insulin pump, 30 units daily - Blood-Glucose Meter,Continuous (DEXCOM G6 ELECTRONICS UTILITY WORKER) misc USE TO TEST BLOOD SUGARS 5 [...] Encounter Status:Closed by MJ KRUEGER on 12/11/[address] [facility] Efrain 12-05-2022 CNPN Telephone (ENDOLN) -------- RODRIGUE WALLACE ([id number]) 1950 F Date Time Provider Department 12/05/22 SPRING HUNTER ENDOLN During your visit today, we recorded the following information about you: Mj Krueger MA 12/05/2022 4:11 PM Signed Received a fax from [employer] requesting copy of patient labs for C Peptide and fasting glucose. Faxed results, Confirmation received. Allergies As of Date: 12/05/2022 Noted Allergy Reaction FOSAMAX (ALENDRONATE SODIUM) 11/08/2014 14 - Other: See Comments Comments: Leg cramps, severe MACRODANTIN (NITROFURANTOIN MACRO*05/23/2016 11 - Vomiting PENICILLINS 06/28/2005 9 - Itching Date Reviewed: 04/26/2022 Reviewed by: Araceli Nathan APRN.IMAGING SCHEDULER - Fully Assessed Reason for Visit: Patient Update [1234] Cmt: [facility] Prescriptions as of 12/05/2022 - amLODIPine (NORVASC) 10 mg tablet - gabapentin (NEURONTIN) 100 mg capsule - NOVOLOG U-100 INSULIN ASPART 100 unit/mL Use via insulin pump, 30 units daily - Blood-Glucose Meter,Continuous (DEXCOM G6 ELECTRONICS UTILITY WORKER) misc USE TO TEST BLOOD SUGARS 5 [...] Encounter Status:Closed by MJ KRUEGER on 12/05/22 [facility] 11-06-2022 [facility] Telephone (ENDOLN) -------- RODRIGUE WALLACE ([id number]) 1950 F Date Time Provider Department 11/06/22 SPRING HUNTER ENDOLN During your visit today, we recorded the following information about you: Mj Krueger MA 11/06/2022 1:49 PM Signed Received a form from [facility] for CGM and Pump supplies. Requesting [...] Date Reviewed: 04/26/2022 Reviewed by: Araceli Nathan APRN.IMAGING SCHEDULER - Fully Assessed Reason for Visit: Forms [543] Cmt: [employer] Prescriptions as of 11/06/2022 - amLODIPine (NORVASC) 10 mg tablet - gabapentin (NEURONTIN) 100 mg capsule - NOVOLOG U-100 INSULIN ASPART 100 unit/mL Use via insulin pump, 30 units daily - Blood-Glucose Meter,Continuous (DEXCOM G6 ELECTRONICS UTILITY WORKER) misc USE TO TEST BLOOD SUGARS 5 [...] Status:Closed by MJ KRUEGER on 11/06/22 Normal [facility] LIPID PROFILEon 09-20-2022 CHOL-HDL RATIO NORM SEE BELOW [facility] Comment on above: Result Comment: 3.3 - 4.4 LOW RISK 4.4 - 7.1 AVERAGE RISK 7.1 - 11.0 MODERATE RISK >11.0 HIGH RISK Performed By: #### L IPID #### [facility] [address] [address] [address] Vera Leggett Cholesterol [Mass/Vol] 152 mg/dL Normal <=200 [facility] Comment on above: Performed By: #### L IPID #### [facility] [address] [address] [address] Vera Leggett Cholesterol in HDL [Mass/Vol] 104 mg/dL Critically high 40-60 [facility] Comment on above: Performed By: #### L IPID #### [facility] [address] [address] [address] Vera Leggett Cholesterol in LDL [Mass/Vol] 34.4 mg/dL Normal [facility] Comment on above: Performed By: #### L IPID #### [facility] [address] [address] [address] Vera Leggett Cholesterol.total/ Cholesterol in HDL [Mass ratio] 1.5 {ratio} Normal [facility] Comment on above: Performed By: #### L IPID #### [facility] [address] [address] [address] Vera Leggett HDL NORMAL > or = 60 mg/dl - LO W CARDIOVASCULAR RISK <40 mg/dl - HIGH CARDIOVASCULAR RISK Normal [facility] Comment on above: Performed By: #### L IPID #### [facility] [address] [address] [address] Vera Leggett LDL CALC NORMAL SEE BELOW Normal [facility] Comment on above: Result Comment: <100 mg/dl OPTIMAL 100 - 129 mg/dl NEAR OR ABOVE OPTIMAL 130 - 159 mg/dl BORDERLINE HIGH 160 - 189 mg/dl HIGH >190 mg/dl VERY HIGH Performed By: #### L IPID #### [facility] [address] [address] [address] Vera Leggett Triglyceride [Mass/Vol] 68 mg/dL Normal <=150 [facility] Comment on above: Performed By: #### L IPID #### [facility] [address] [address] [address] Vera Leggett VLDL CALC 13.6 mg/dL Normal [facility] Comment on above: Performed By: #### L IPID #### [facility] [address] [address] [address] Vera Zuniga 07-04-2022 [place] Telephone (ENDOLN) -------- RODRIGUE WALLACE ([id number]) 1950 F Date Time Provider Department 07/04/22 SPRING HUNTER During your visit today, we recorded the following information about you: Mj Krueger MA 07/04/2022 1:22 PM Signed Received a fax from [facility] requesting last 2 office notes. Faxed notes from 09/26/21 and 04/26/22 to [phone]. Confirmation received. Allergies As of Date: 07/04/2022 Noted Allergy Reaction FOSAMAX (ALENDRONATE SODIUM) 11/08/2014 14 - Other: See Comments Comments: Leg cramps, severe MACRODANTIN (NITROFURANTOIN MACRO*05/23/2016 11 - Vomiting PENICILLINS 06/28/2005 9 - Itching Date Reviewed: 04/26/2022 Reviewed by: Araceli Nathan APRN.IMAGING SCHEDULER - Fully Assessed Reason for Visit: Patient Update [1234] Cmt: [facility] Prescriptions as of 07/10/2022 - amLODIPine (NORVASC) 10 mg tablet - gabapentin (NEURONTIN) 100 mg capsule - NOVOLOG U-100 INSULIN ASPART 100 unit/mL Use via insulin pump, 30 units daily - Blood-Glucose Meter,Continuous (DEXCOM G6 ELECTRONICS UTILITY WORKER) misc USE TO TEST BLOOD SUGARS 5 [...] Encounter Status:Closed by MJ KRUEGER on 07/10/22 Normal [facility] CNOVon 04-26-2022 CNOV Office Visit (ENDOLN ) -------- RODRIGUE WALLACE ([id number]) 1950 F Date Time Provider Department 04/26/22 10:00 AM ARACELI NATHAN During your visit today, we recorded the following information about you: Pulse Blood pressure Weight Height 74/minute 126/84 72.1 kg 1.6 m Araceli Nathan APRN.CNP 04/26/2022 10:30 AM Signed 72yo WF with h/o DM1 since age 56, on Medtronic 670G pump in 09/2019, hypoglycemia unawareness, neuropathy, HTN, HLP, osteoporosis, here for f/u, followed by Dr. Hunter and I. At [facility] we increased carb ratio as she [...] CGM Findings: Dates worn: 04/13/2022-04/26/2022 CGM Type: [employer] 1- CGM recording is adequate for interpretation. [...] Medication Sig - Blood-Glucose Meter,Continuous (DEXCOM G6 ELECTRONICS UTILITY WORKER) misc USE TO TEST BLOOD SUGARS 5 TIMES DAILY - Blood-Glucose Sensor (MicrolaunchersCOM G6 SENSOR) shayy USE TO TEST BLOOD [...] - Subcutaneous Insulin Pump (PARADIGM INSULIN PUMP) [facility] 523 Basal: 24:00- 00.35. 300-0.55; 0700-0.75 2300-0.375. Bolus: 6:00 1/8 g CHO;10:30 1/9; 1700-1/10; 2200 /15 Theodore: 1 for 60 >120 - glucagon, [...] in t (more content not included)... Normal [facility] CT HEAD WO CONon 03-19-2022 CT HEAD [...] by: TRUE COELLO Date: 2022-03-19 16:05 Normal [facility] US CAROTID ART BILon 03-19-2 022 US CAROTID ART LISA EXAMINATION: US [...] by: JERAMY REYNA Date: 2022-03-19 17:01 Normal [facility] CNOVon 01-01-2022 CNOV Office Visit (ENDOLN ) -------- RODRIGUE WALLACE ([id number]) 1950 F Date Time Provider Department 01/01/22 1:00 PM ARACELI NATHAN During your visit today, we recorded the following information about you: Pulse Blood pressure Weight 80/minute 114/74 69.9 kg Araceli Nathan APRN.IMAGING SCHEDULER 01/01/2022 2:03 PM Signed 71yo WF with [...] Medication Sig - Blood-Glucose Meter,Continuous (DEXCOM G6 ELECTRONICS UTILITY WORKER) misc USE TO TEST BLOOD SUGARS 5 TIMES DAILY - Blood-Glucose Sensor (DEXCOM G6 SENSOR) shayy USE TO TEST BLOOD SUGARS 5 TIMES DAILY - Blood-Glucose Transmitter (DEXCOM G6 TRANSMITTER) shayy USE TO TEST BLOOD SUGARS 5 TIMES DAILY - blood sugar diagnostic ([employer]io NEXT TEST STRIPS) test strip USE TO [...] - Subcutaneous Insulin Pump (PARADIGM INSULIN PUMP) [facility] 523 Basal: 24:00- 00.35. 300-0.55; 0700-0.75 2300-0.375. Bolus: 6:00 1/8 g CHO;10:30 1/9; 1700-1/10; 2200 /15 Theodore: 1 for 60 >120 - glucagon, [...] Tab Hai (more content not included)... Normal [facility] [place]rain 01-01-2022 RHEAN Telephone (ENDOLN) -------- RODRIGUE WALLACE ([id number]) 1950 F Date Time Provider Department 01/01/22 ARACELI NATHAN ENDOLN During your visit today, we recorded the following information about you: Mj Krueger MA 01/01/2022 1:42 PM Signed Call placed to [facility] to inquire for a form for Dexcom G6. [facility] states we can fax a prescription to : [phone] and they will send us what form is needed. Araceli Nathan APRN.IMAGING SCHEDULER 01/01/2022 1:52 PM Signed Rx printed. Please fax and give patient a call to let her know we are sending this. Araceli Nathan APRN.IMAGING SCHEDULER 01/01/2022 1:54 PM Signed Addended by: ARACELI [...] [E10.649] Insulin pump status [Z96.41] Order(s):Blood-Glucose Meter,Continuous (DEXCOM G6 ELECTRONICS UTILITY WORKER) miscUSE TO TEST BLOOD SUGARS 5 TIMES DAILYDisp: 1 EachRfl: 0 Blood-Glucose Sensor (DEXCOM G6 SENSOR) deviUSE TO TEST BLOOD SUGARS 5 TIMES DAILYDisp: 3 EachRfl: 11 Blood-Glucose Transmitter (DEXCOM G6 TRANSMITTER) deviUSE TO TEST BLOOD SUGARS 5 TIMES DAILYDisp: 1 EachRfl: 3 Prescriptions as of 01/01/2022 - amLODIPine (NORVASC) 10 mg tablet - gabapentin (NEURONTIN) 100 mg capsule - NOVOLOG U-100 INSULIN ASPART 100 unit/mL Use via insulin pump, 30 units daily - Blood-Glucose Meter,Continuous (DEXCOM G6 ELECTRONICS UTILITY WORKER) misc USE TO TEST BLOOD SUGARS 5 [...] Alkaline ref (more content not included)... Normal [facility] Q - CULTURE,URINE,ROUTINEon 11-13-2021 CULTURE, URINE, ROUTINE SEE NOTE Normal [facility] Set Up Mechanic Stamping Machines Comment on above: Order Comment: [facility] Testing performed at: QPT, [facility], [address] [place] [address], [address] [place] [address], [id number], Chemical Recovery Operator: Félix Elder MD [facility] Collection Date/Time: [facility] Results Received Date/Time: [facility] Reported Date/Time: FASTING: UNKNOWN Result Comment: CULT URE, URINE, ROUTINE Micro Number: [id number] Test Status: Final Specimen Source: Urine Specimen Quality: Adequate Result: No Growth Performed By: #### 6 [id number] #### [facility] [address] [place] [address] LUMBAR SPINE 2 OR 3 VIEWSon 07-19-2021 LUMBAR SPINE 2 OR 3 VIEWS STUDY: LUMBAR SPINE 2 OR 3 VIEWS; 07/19/2021 12:04 pm INDICATION: PAIN. COMPARISON: None. ACCESSION NUMBER(S): [id number] ORDERING CLINICIAN: Katey Clark FINDINGS: Metallic interbody graft at L5-S1. Mild compression fractures at L1 and L2. Moderate compression fracture at L4. No spondylolisthesis. Multilevel facet arthropathy. IMPRESSION: Age-indeterminate compression fractures at L1, L2, and L4. Degenerative changes. L5-S1 fusion. Normal [facility] HISTORY PHYSICALon 9 HISTORY PHYSICAL HNO ID: [id number] Author: Haven Nixon ([facility]) BARBARA Bagley Service: ? Author Type: Physician Refrigeration Technician Type: HANDP Filed: 04/15/2019 8:46 AM Note [...] Date - ANTERIOR DISCECTOMY - COLONOSCOPY 06/30/2017 Susu- diverticulosis, repeat in 5 years - EGD 10/16/15 - ENLARGE BREAST WITH IMPLANT 1976 bilateral silicone implants - KNEE SCOPE,DIAGNOSTIC Right [...] DAY Subcutaneous Insulin Pump (PARADIGM INSULIN PUMP) [facility] 523 Basal: 24:00- 00.35. 300-0.55; 0700-0.75 2300-0.375. [...] April 15, 2019 TIME: 8:45 AM PAGER: [phone] [facility] NURSING PROGon 04-15-2019 NURSING PROG HNO ID: [id number] Author: Lita BeachRn) Lux RN Service: Nursing Author Type: Registered Nurse Type: Nursing Progress Note Filed: 04/15/2019 8:15 AM Note Text: PRE OP LEARNING ASSESSMENT PROCEDURE/SURGERY: EGD READINESS TO LEARN COGNITIVE ABILITY: Alert and oriented MOTIVATION TO LEARN: Eager FAMILY SUPPORT: None - Unavailable/disintereste d PATIENT LEARNS BEST BY: Individual Instruction FACTORS AFFECTING LEARNING: None PHYSICAL LIMITATIONS AFFECTING LEARNING: None [facility] PT EDon 04-15-2019 PT ED HNO ID: [id number] Author: Priya Bateman RN Service: Nursing Author Type: Registered Nurse Type: [...] By: Priya Bateman RN In Department: PROCEDURES [facility] 03-12-2019 ALLIED HEALTH HNO ID: [id number] Author: Darcie Travis (RtJess Salgado Service: Radiology Author Type: Inletter Type: Allied Health Filed: 03/12/2019 7:59 AM [...] RT Tomás March 12, 2019 7:59 AM [facility] XR UPPER GI DOUBLE CONTRAST/ AIRon 03-12-2019 [...] Moderate size hiatal hernia and gastroesophageal reflux. Patient Transporter: PSCSandeep Transcribe Date/Time: Mar 12 2019 8:31A Dictated by : SHIRLEY LOPEZ MD This examination was interpreted and the report reviewed and electronically signed by: SHIRLEY LOPEZ MD on Mar 12 2019 8:34AM EST [id number] [facility] NM GASTRIC EMPTYING SOLIDon 03-10-2019 [place] GASTRIC EMPTYING SOLID * * *Final Report* * * DATE OF EXAM: Mar 10 2019 10:55AM [facility] 0017 - [place] GASTRIC EMPTYING SOLID / PROCEDURE REASON: Dyspepsia [...] RATE OF GASTRIC EMPTYING OF SOLID MEAL. Patient Transporter: PSCB Transcribe Date/Time: Mar 10 2019 11:39A Dictated by : KIMBERLY BILLS MD This examination was interpreted and the report reviewed and electronically signed by: KIMBERLY BILLS MD on Mar 10 2019 11:43AM EST [id number] [facility] PROGRESSon 03-10-2019 PROGRESS HNO ID: [id number] Author: Jess Sagastume (Rt) Service: Radiology Author Type: Inletter Type: Progress Notes Filed: 03/10/2019 8:45 AM [...] 08:28 PATIENT DISCHARGED TO: Ambulatory patient, left [place] department area. A Diagnostic radioactive procedure has taken place, with no further precautions necessary other than routine body substance precautions. More information regarding radiation safety can be found using this link: [email or web address] SIGNATURE: RT Tanika (N0, LOCOMOTIVE DRIVER PATIENT NAME: Rodrigue Wallace DATE: March 10, 2019 TIME: 7:59 AM PAGER/CONTACT #: [facility] HOSP 03-03-2019 HOSP Patient:Nubia Wallace MRN: Height:5' 3 (1.6 m) Weight:No patient weight recorded within the last 30 days. Outpatient Medications as of 04/15/19: NOVOLOG U-100 INSULIN ASPART 100 unit/mL soln PROLIA 60 mg/mL syrg ONETOUCH ULTRA TEST test strip ezetimibe (ZETIA) 10 [...] for the following basenames: K,HCT Progress Notes ([facility] REJ): Anju Lyman MA, MA 04/01/2019 1:09 PM Signed Dear Miranda Powell This is in regards to our mutual patient Rodrigue Wallace who is scheduled for an EGD on 04/15/19. Dr. Cristobal is requesting pre procedure Diabetes medication recommendations. Please advise and route message to: Adrian MILLER CORS/URI NURSE [id number] Anju Lyman MA, MA 04/01/2019 1:09 PM Signed EGD PREP INSTRUCTIONS 1 WEEK PRIOR TO PROCEDURE: *Please contact our office if you are diabetic, or you take any blood thinners. (ie. Plavix, Coumadin, Xarelto, Pradaxa, Eliquis) DAY BEFORE PROCEDURE: *You should receive a call from the [facility] with your arrival time between 12pm - 3pm. *If your arrival time is before noon, then NO SOLID FOODS OR LIQUIDS after midnight. *If your arrival time is afternoon, you may continue a clear liquid diet up to 3 hours prior to your arrival time. PROCEDURE DAY: *Make sure you have a responsible bulk tank driver to bring you and take you home from the procedure. *Bring your Photo ID and Insurance Cards with you. If you have any questions or problems, please call our office at [phone] and ask for GI Prep Line. Miranda Powell APRN.RHEA 04/01/2019 1:33 PM Signed She should lower [...] no further questions or concerns. Progress Notes ([facility]): Elvia Jolly Pss 03/29/2019 [...] sent yet. She can be reached at [phone]. Please advise. Sabino Grace LPN 03/29/2019 1:45 PM Signed Procedures AND biopsies faxed with confirmation Pt is aware [facility] Coding Summary.on 08-21-2018 Coding Summary. CODING DATE: [address] [facility] STATUS: Home (Routine DC) PAYOR: Medicare [...] Brambila CphT Date Saved: 08/21/2018 10:12 am [facility] XR Shoulder Complete Righton 08-20-2018 XR Shoulder [...] MD Transcribed by: GOKUL Technologist: DAMARIS Romo [facility] Cardiovascular Lab Reporton 06-26-2018 Cardiovascular Lab Report [facility] MR #: [id number] of Physician: Djeuan Lauren M.D.Division of Service Date: 06/25/2018Cardiology Birthdate: [birth year]Adult Cardiovascular Room #: [id number] [place], [place] [address]Rqdxk Fax Cardiovascular Laboratory ReportFINAL IMPRESSIONS:1. Angiographically nonobstructive [...] pulmonary.4. Follow up with me in the [facility] in the next 3 to 4 weeks.5. Follow up with Dr. Santiago, her family physician as scheduled.PROCEDURES: Right heart catheterization, bilateral selective coronaryangiography, limited femoral angiography, placement of a 6-Mexican MynxGripclosure device.METHODS: After risks, benefits, and alternatives were explained, writteninformed consent was obtained. The patient was prepped and draped in theusual sterile fashion over the right groin. Using 1% lidocaine solution,local infiltration anesthesia was achieved. Using a modified Seldingertechnique, access to the right common femoral artery and vein was obtainedand 6-Mexican 11 cm sheath was inserted in each. [...] images, it was elected to conclude theprocedure.A 6-Mexican MynxGrip closure device was deployed per protocol achievingoptimal hemostasis. Overall, the patient tolerated the procedure well.There were no overt complications. [facility].FINDINGS:Hemod ynamics:1. AO 146/80.2. [...] and management strategies areoutlined above.Electronically Signed by:Ayleen Vernon M.D. 07/02/2018 04:44 P Ayleen Vernon M.D.Date Dict: 06/25/2018/09:04 Yazan/Ayleen Vernon M.D.Date Trans: 06/26/2018 04:33 Yazan/Bharath_JN:[id number] 8cc: Howard Santiago M.D. 3 [facility] [address] Normal [facility] BASIC METABOLIC PANELon 05-24 Calcium mass conc 8.6 mg/dL Normal 8.6-10.3 The [facility] Comment on above: Order Comment: No: D o not add to previous draw Performed By: #### 4 6413, 76951, 84400, 71465, 04169, 10797 ####[facility] [place] [address], [place] Chloride molar conc 101 mmol/L Normal 98-107 [facility] Comment on above: Order Comment: No: D o not add to previous draw Performed By: #### 4 6413, 02496, 35474, 14375, 72370, 04662 ####[facility] [place] [address], [place] CO2 molar conc 27 mmol/L Normal 21-31 The [facility] Comment on above: Order Comment: No: D o not add to previous draw Performed By: #### 4 6413, 66974, 90289, 28417, 02726, 75937 ####[facility] [place] [address], [place] Creatinine mass conc 0.51 mg/dL Low 0.60-1.20 [facility] Comment on above: Order Comment: No: D o not add to previous draw Performed By: #### 4 6413, 50360, 29379, 41790, 76824, 72133 ####[facility] [place] [address], [place] GFR/1.73 sq M predicted among blacks MDRD vol rate/area (S/P/Bld) mL/min/{1.73_m2} Normal >60 [facility] Comment on above: Order Comment: No: D o not add to previous draw Performed By: #### 4 6413, 20615, 79953, 78568, 10370, 31589 ####[facility] [place] [address], [place] GFR/1.73 sq M predicted among non-blacks MDRD vol rate/area (S/P/Bld) mL/min/{1.73_m2} Normal >60 [facility] Comment on above: Order Comment: No: D o not add to previous draw Performed By: #### 4 6413, 58372, 78095, 96696, 32644, 66923 ####[facility] [place] [address], [facility] Glucose mass conc 211 mg/dL High 70-100 The [facility] Comment on above: Order Comment: No: D o not add to previous draw Performed By: #### 4 6413, 77264, 11100, 93856, 23758, 51154 ####[facility] [place] [address], [facility] Potassium molar conc 4.0 mmol/L Normal 3.5-5.1 [facility] Comment on above: Order Comment: No: D o not add to previous draw Performed By: #### 4 6413, 07800, 52959, 03553, 23127, 75466 ####[facility] [place] [address], [facility] Sodium molar conc 135 mmol/L Low 136-145 [facility] Comment on above: Order Comment: No: D o not add to previous draw Performed By: #### 4 6413, 06735, 96636, 48865, 03289, 53161 ####[facility] [place] [address], [facility] Urea nitrogen mass conc 4 mg/dL Low 7-25 [facility] Comment on above: Order Comment: No: D o not add to previous draw Performed By: #### 4 6413, 86951, 31598, 34536, 15613, 07469 ####[facility] [place] [address], [place] CBC COMPLETE BLOOD COUNTon 0 06-17-2018 Erythrocyte distribution width Auto Ratio (RBC) 14.7 % Normal 11.5-15.0 [facility] Comment on above: Order Comment: No: D o not add to previous draw Performed By: #### 4 6413, 43563, 49760, 07602, 96174, 03113 ####[facility] Hematocrit Auto Volume Fraction (Bld) 34.4 % Low 36.0-45.0 [facility] Comment on above: Order Comment: No: D o not add to previous draw Performed By: #### 4 6413, 82801, 36377, 85908, 47613, 35688 ####[facility] Hemoglobin mass conc (Bld) 11.0 g/dL Low 12.0-15.0 [facility] Comment on above: Order Comment: No: D o not add to previous draw Performed By: #### 4 6413, 73928, 24781, 57589, 04423, 69398 ####[facility] MCH Auto Entitic mass (RBC) 26.3 pg Low 27.0-33.0 [facility] Comment on above: Order Comment: No: D o not add to previous draw Performed By: #### 4 6413, 48997, 55236, 01196, 70741, 29992 ####[facility] [facility].[address] MCHC Auto mass conc (RBC) 32.0 g/dL Normal 32.0-35.0 [facility] Comment on above: Order Comment: No: D o not add to previous draw Performed By: #### 4 6413, 33453, 86057, 97632, 77191, 69867 ####[facility] MCV Auto Entitic volume (RBC) 82.3 fL Normal 82.0-98.0 [facility] Comment on above: Order Comment: No: D o not add to previous draw Performed By: #### 4 6413, 34309, 89121, 00094, 83273, 45213 ####[facility] Nucleated RBC/100 WBC Ratio (Bld) 0 % Normal 0-0 [facility] Comment on above: Order Comment: No: D o not add to previous draw Performed By: #### 4 6413, 95809, 07888, 01234, 66105, 71882 ####[facility] PLAT CNT 301 10*3/uL Normal 150-400 The [facility] Comment on above: Order Comment: No: D o not add to previous draw Performed By: #### 4 6413, 00558, 96267, 34916, 46726, 25989 ####[facility] [facility].[address] RBC Auto #/vol (Bld) 4.18 10*6/uL Normal 3.80-5.00 [facility] Comment on above: Order Comment: No: D o not add to previous draw Performed By: #### 4 6413, 88596, 94882, 80209, 91159, 61431 ####[facility] [facility].[address] WBC Auto #/vol (Bld) 5.45 10*3/uL Normal 4.00-10.60 [facility] Comment on above: Order Comment: No: D o not add to previous draw Performed By: #### 4 6413, 29057, 15051, 91385, 33061, 08289 ####[facility] [facility] MAGNESIUM BLOODon 06-17-2018 Magnesium mass conc 1.6 mg/dL Low 1.9-2.7 [facility] Comment on above: Order Comment: No: D o not add to previous draw Performed By: #### 4 6413, 07902, 22269, 26920, 31144, 79041 ####[facility] [place] [address], [facility] POC GLUCOSE LABon 06-17-2018 Glucose mass conc 254 mg/dL High 70-100 The [facility] Comment on above: Performed By: #### 4 6413, 43878, 21051, 10209, 72278, 70220 ####[facility] [facility].[address] Glucose mass conc 239 mg/dL High 70-100 The [facility] Comment on above: Performed By: #### 4 6413, 66845, 82198, 04603, 72833, 59593 ####[facility] [facility].[address] TROPONIN-Ion 06-17-2018 Troponin I.cardiac mass conc 0.00 ng/mL Normal 0.00-0.04 [facility] Comment on above: Order Comment: No: D o not add to previous draw Result Comment: REFE RENCE RANGES: 0.00 - 0.14 ng/ml NEGATIVE 0.15 - 0.25 ng/ml INDETERMINATE > 0.25 ng/ml INDICATIVE OF AN M.I. Performed By: #### 4 6413, 22383, 22738, 07657, 47907, 53690 ####[facility] [facility].[address] BNP (B-TYPE NATRIURETIC PEPT PRAVEENA)on 06-16-2018 Natriuretic peptide B mass conc (Bld) 54 pg/mL Normal 0-100 [facility] Comment on above: Order Comment: No: D o not add to previous draw Result Comment: Give n the appropriate clinical setting a BNP result of >100 pg/mLindicates congestive heart failure. Performed By: #### 8 5123 ####[facility] [facility] [place] [address], [facility] CBC W/DIFFon 06-16-2018 ABS BASOPHILS 0.0 10*3/uL Normal 0.0-0.2 [facility] Comment on above: Order Comment: No: D o not add to previous draw Performed By: #### 5 0103 ####[facility] ABS IMM GRANS 0.0 10*3/uL Normal 0.0-0.2 [facility] Comment on above: Order Comment: No: D o not add to previous draw Performed By: #### 5 0103 ####[facility] ABS NEUTROPHILS 4.1 10*3/uL Normal 1.6-7.6 [facility] Comment on above: Order Comment: No: D o not add to previous draw Performed By: #### 5 0103 ####[facility] Basophils Auto #/vol (Bld) 0.1 % Normal 0.0-1.0 [facility] Comment on above: Order Comment: No: D o not add to previous draw Performed By: #### 5 0103 ####[facility] Eosinophils Auto #/vol (Bld) 0.0 10*3/uL Normal 0.0-0.5 [facility] Comment on above: Order Comment: No: D o not add to previous draw Performed By: #### 5 0103 ####[facility] Eosinophils/100 WBC Auto (Bld) 0.4 % Normal 0.0-6.0 [facility] Comment on above: Order Comment: No: D o not add to previous draw Performed By: #### 5 3 ####[facility] Erythrocyte distribution width Auto Ratio (RBC) 14.5 % Normal 11.5-15.0 [facility] Comment on above: Order Comment: No: D o not add to previous draw Performed By: #### 5 0103 ####[facility] Hematocrit Auto Volume Fraction (Bld) 33.2 % Low 36.0-45.0 [facility] Comment on above: Order Comment: No: D o not add to previous draw Performed By: #### 5 3 ####[facility] Hemoglobin mass conc (Bld) 10.7 g/dL Low 12.0-15.0 [facility] Comment on above: Order Comment: No: D o not add to previous draw Performed By: #### 5 3 ####[facility] IMMATURE GRANS 0.3 % Normal 0.0-1.0 [facility] Comment on above: Order Comment: No: D o not add to previous draw Performed By: #### 5 3 ####[facility] Lymphocytes Auto #/vol (Bld) 2.7 10*3/uL Normal 1.2-4.0 [facility] Comment on above: Order Comment: No: D o not add to previous draw Performed By: #### 5 3 ####[facility] Lymphocytes/100 WBC Auto (Bld) 36.8 % Normal 20.0-45.0 [facility] Comment on above: Order Comment: No: D o not add to previous draw Performed By: #### 5 3 ####[facility] [place] [address] MCH Auto Entitic mass (RBC) 26.4 pg Low 27.0-33.0 [facility] Comment on above: Order Comment: No: D o not add to previous draw Performed By: #### 5 0103 ####[facility] [facility].[address] MCHC Auto mass conc (RBC) 32.2 g/dL Normal 32.0-35.0 [facility] Comment on above: Order Comment: No: D o not add to previous draw Performed By: #### 5 0103 ####[facility] [facility].[address] MCV Auto Entitic volume (RBC) 82.0 fL Normal 82.0-98.0 [facility] Comment on above: Order Comment: No: D o not add to previous draw Performed By: #### 5 3 ####[facility] [facility].[address] Monocytes Auto #/vol (Bld) 0.5 10*3/uL Normal 0.1-1.0 [facility] Comment on above: Order Comment: No: D o not add to previous draw Performed By: #### 5 3 ####[facility] [facility].[address] MONOS 6.4 % Normal 5.0-12.0 [facility] Comment on above: Order Comment: No: D o not add to previous draw Performed By: #### 5 0103 ####[facility] [facility].[address] Neutrophils/100 WBC Auto (Bld) 56.0 % Normal 40.0-72.0 [facility] Comment on above: Order Comment: No: D o not add to previous draw Performed By: #### 5 0103 ####[facility] [facility].[address] Nucleated RBC/100 WBC Ratio (Bld) 0 % Normal 0-0 [facility] Comment on above: Order Comment: No: D o not add to previous draw Performed By: #### 5 0103 ####[facility] [place] [address], [facility] PLAT CNT 293 10*3/uL Normal 150-400 The [facility] Comment on above: Order Comment: No: D o not add to previous draw Performed By: #### 5 0103 ####[facility] [place] [address], [facility] RBC Auto #/vol (Bld) 4.05 10*6/uL Normal 3.80-5.00 [facility] Comment on above: Order Comment: No: D o not add to previous draw Performed By: #### 5 0103 ####[facility] [place] [address], [facility] WBC Auto #/vol (Bld) 7.30 10*3/uL Normal 4.00-10.60 [facility] Comment on above: Order Comment: No: D o not add to previous draw Performed By: #### 5 0103 ####[facility] COMP METABOLIC PANELon 06-16 Albumin mass conc 3.7 g/dL Normal 3.5-5.7 The [facility] Comment on above: Order Comment: No: D o not add to previous draw Performed By: #### 4 6413, 24476, 44396, 02320, 67598, 08983 ####[facility] [place] [address], [facility] ALKALINE PHOSPH 39 IU/L Normal 34-104 [facility] Comment on above: Order Comment: No: D o not add to previous draw Performed By: #### 4 6413, 37998, 78678, 38672, 86427, 41131 ####[facility] [place] [address], [facility] ALT enzyme act/vol 6 U/L Low 7-52 The [facility] Comment on above: Order Comment: No: D o not add to previous draw Performed By: #### 4 6413, 76472, 32531, 24930, 22547, 21791 ####[facility] [place] [address], [place] AST enzyme act/vol 12 U/L Low 13-39 The [facility] Comment on above: Order Comment: No: D o not add to previous draw Performed By: #### 4 6413, 21470, 95776, 11070, 04039, 89253 ####[facility] [place] [address], [facility] Bilirubin mass conc 0.4 mg/dL Normal 0.3-1.0 [facility] Comment on above: Order Comment: No: D o not add to previous draw Performed By: #### 4 6413, 70574, 59716, 71595, 88123, 92861 ####[facility] [place] [address], [facility] Calcium mass conc 9.1 mg/dL Normal 8.6-10.3 [facility] Comment on above: Order Comment: No: D o not add to previous draw Performed By: #### 4 6413, 61106, 29060, 57886, 37071, 48568 ####[facility] [place] [address], [place] Chloride molar conc 96 mmol/L Low 98-107 [facility] Comment on above: Order Comment: No: D o not add to previous draw Performed By: #### 4 6413, 92180, 08170, 70467, 99687, 18314 ####[facility] [place] [address], [place] CO2 molar conc 23 mmol/L Normal 21-31 [facility] Comment on above: Order Comment: No: D o not add to previous draw Performed By: #### 4 6413, 45307, 42821, 05948, 27158, 89660 ####[facility] [place] [address], [facility] Creatinine mass conc 0.50 mg/dL Low 0.60-1.20 [facility] Comment on above: Order Comment: No: D o not add to previous draw Performed By: #### 4 6413, 24249, 80372, 47984, 77464, 23084 ####[facility] [place] [address], [facility] GFR/1.73 sq M predicted among blacks MDRD vol rate/area (S/P/Bld) mL/min/{1.73_m2} Normal >60 [facility] Comment on above: Order Comment: No: D o not add to previous draw Performed By: #### 4 6413, 64153, 54841, 52829, 56949, 79942 ####[facility] [place] [address], [facility] GFR/1.73 sq M predicted among non-blacks MDRD vol rate/area (S/P/Bld) mL/min/{1.73_m2} Normal >60 [facility] Comment on above: Order Comment: No: D o not add to previous draw Performed By: #### 4 6413, 33898, 81648, 53889, 32902, 13611 ####[facility] [place] [address], [place] Glucose mass conc 269 mg/dL High 70-100 [facility] Comment on above: Order Comment: No: D o not add to previous draw Performed By: #### 4 6413, 65037, 06128, 14645, 24852, 80651 ####[facility] [place] [address], [place] Potassium molar conc 3.8 mmol/L Normal 3.5-5.1 [facility] Comment on above: Order Comment: No: D o not add to previous draw Performed By: #### 4 6413, 25387, 12995, 42343, 60314, 49833 ####[facility] [facility].[address] Protein mass conc 6.4 g/dL Normal 6.0-8.3 [facility] Comment on above: Order Comment: No: D o not add to previous draw Performed By: #### 4 6413, 59856, 63496, 27970, 15478, 84342 ####[facility].[address] Sodium molar conc 130 mmol/L Low 136-145 [facility] Comment on above: Order Comment: No: D o not add to previous draw Performed By: #### 4 6413, 48816, 43982, 60368, 37787, 80127 ####[facility] [facility].[address] Urea nitrogen mass conc 5 mg/dL Low 7-25 [facility] Comment on above: Order Comment: No: D o not add to previous draw Performed By: #### 4 6413, 50077, 55933, 95563, 11984, 25182 ####[facility] [facility].[address] History and Physicalon 06-16 History and Physical MR[id number]ue Wallace Admitted: 06/15/2018 Date of : 1950 Attending Physician: Nilda Walls M.D. Room #: 3CD [id number] Discharge Date: HISTORY AND PHYSICALThe patient was seen by me on June 15, 2018.CHIEF COMPLAINT: Hypertensive urgency.HISTORY OF PRESENT ILLNESS: The patient is a 68-year-old female with apast medical history of hypertension and diabetes who presented to [facility] asa transfer from [facility]. From the history, we know that the patient wasseen yesterday by her servicenow administrator developer there and had high blood pressure in [...] back negative. She was transferred to the [facility].The patient's servicenow administrator developer planned to do cardiac cath on her in 3 days hereat [facility] anyway. When I was examining her, the [...] DATA: Labs that were done at the [facility] shows white bloodcell 7.6, hemoglobin 11.5, [...] 06/16/2018/12:19 Yazan/Nilda Walls M.D.Date Trans: 06/16/2018 05:38 Yazan/Bharath_JN:[id number] Normal [facility] LIPID PROFILEon 06-16-2018 Cholesterol in HDL mass conc 78 mg/dL Normal 23-92 [facility] Comment on above: Order Comment: No: D o not add to previous draw Result Comment: Slig ht variation in normal range could be due to gender and/or age.HDL CHOLESTEROL REFERENCE RANGE:20 years and older Cardiovascular Risk> or =60 mg/dL [id number] TO 59 mg/dL Low Risk<40 mg/dL High Risk Performed By: #### 4 6413, 03440, 53075, 62266, 36195, 60574 ####[facility] [place] [address], [facility] Cholesterol in LDL mass conc 71 mg/dL Normal 0-130 [facility] Comment on above: Order Comment: No: D o not add to previous draw Result Comment: LDL IS A CALCULATIONLDL IS ONLY VALID IF THE TRIG IS LESS THAN 400. Performed By: #### 4 6413, 43151, 28542, 43881, 92668, 44240 ####[facility] [place] [address], [facility] Cholesterol mass conc 167 mg/dL Normal 120-200 [facility] Comment on above: Order Comment: No: D o not add to previous draw Result Comment: CHOL ESTEROL REFERENCE RANGE:20 YEARS AND OLDER CARDIOVASCULAR RISKLess than 200 mg/dl Low Cpwh907 to 239 mg/dl Borderline Vrdw465 mg/dl and greater High Risk Performed By: #### 4 6413, 11861, 39664, 12385, 48187, 24895 ####[facility] [place] [address], [facility] Cholesterol.total/ Cholesterol in HDL mass ratio 2.1 {ratio} Normal .0-4.5 [facility] Comment on above: Order Comment: No: D o not add to previous draw Performed By: #### 4 6413, 88210, 09098, 35897, 70424, 07945 ####[facility] NON-HDL CHOLESTEROL 89 mg/dL Normal [facility] Comment on above: Order Comment: No: D o not add to previous draw Performed By: #### 4 6413, 35728, 86788, 38205, 04085, 41839 ####[facility] Triglyceride mass conc 89 mg/dL Normal 40-149 [facility] Comment on above: Order Comment: No: D o not add to previous draw Result Comment: TRIG LYCERIDE REFERENCE RANGE:20 YEARS AND OLDER CARDIOVASCULAR RISKLESS THAN 150 mg/dl LOW [id number] TO 199 mg/dl BORDERLINE [id number] mg/dl AND GREATER HIGH RISK Performed By: #### 4 6413, 26728, 63516, 95389, 80323, 71179 ####[facility] VLDL CHOL 18 mg/dL Normal 0-40 [facility] Comment on above: Order Comment: No: D o not add to previous draw Performed By: #### 4 6413, 03097, 77521, 82582, 94287, 87649 ####[facility] [place] [address], [facility] MAGNESIUM BLOODon 06-16-2018 Magnesium mass conc 1.6 mg/dL Low 1.9-2.7 [facility] Comment on above: Order Comment: No: D o not add to previous draw Performed By: #### 4 6413, 87846, 76097, 64135, 60694, 87678 ####[facility] [place] [address], [facility] PHOSPHORUS BLOODon 8 Phosphate mass conc 3.0 mg/dL Normal 2.5-5.0 [facility] Comment on above: Order Comment: No: D o not add to previous draw Performed By: #### 4 6413, 02639, 67755, 40969, 31597, 67628 ####[facility] [place] [address], [facility] POC GLUCOSE LABon 06-16-2018 Glucose mass conc 118 mg/dL High 70-100 [facility] Comment on above: Performed By: #### 4 6413, 71037, 55850, 39112, 02616, 32210 ####[facility] [place] [address], [facility] Glucose mass conc 225 mg/dL High 70-100 [facility] Comment on above: Performed By: #### 4 6413, 71976, 33955, 17016, 19473, 52406 ####[facility] [place] [address], [place] Glucose mass conc 191 mg/dL High 70-100 [facility] Comment on above: Performed By: #### 4 6413, 40294, 10207, 34583, 88085, 73843 ####[facility] [place] [address], [place] Glucose mass conc 224 mg/dL High 70-100 [facility] Comment on above: Performed By: #### 4 6413, 18187, 20385, 49112, 03671, 32180 ####[facility] [place] [address], [place] TROPONIN-Ion 06-16-2018 Troponin I.cardiac mass conc 0.00 ng/mL Normal 0.00-0.04 [facility] Comment on above: Order Comment: No: D o not add to previous draw Result Comment: REFE RENCE RANGES: 0.00 - 0.14 ng/ml NEGATIVE 0.15 - 0.25 ng/ml INDETERMINATE > 0.25 ng/ml INDICATIVE OF AN M.I. Performed By: #### 4 6413, 96860, 72508, 69223, 57494, 94402 ####[facility] Troponin I.cardiac mass conc 0.00 ng/mL Normal 0.00-0.04 [facility] Comment on above: Order Comment: No: D o not add to previous draw Result Comment: REFE RENCE RANGES: 0.00 - 0.14 ng/ml NEGATIVE 0.15 - 0.25 ng/ml INDETERMINATE > 0.25 ng/ml INDICATIVE OF AN M.I. Performed By: #### 3 5200 ####[facility] [place] [address], [facility] Troponin I.cardiac mass conc 0.00 ng/mL Normal 0.00-0.04 [facility] Comment on above: Order Comment: No: D o not add to previous draw Result Comment: REFE RENCE RANGES: 0.00 - 0.14 ng/ml NEGATIVE 0.15 - 0.25 ng/ml INDETERMINATE > 0.25 ng/ml INDICATIVE OF AN M.I. Performed By: #### 4 6413, 12395, 82559, 82308, 29328, 06847 ####[facility] TSH3on 06-16-2018 TSH 3RD GENERATION 0.79 uIU/mL Normal 0.34-5.60 [facility] Comment on above: Order Comment: No: D o not add to previous draw Performed By: #### 4 6413, 51856, 25009, 47143, 71631, 08487 ####[facility] URINALYSIS REFLEXon 06-16-20 18 APPEARANCE CLEAR Normal CLEAR [facility] Comment on above: Order Comment: No: D o not add to previous drawCriteria for reflexing a culture was not met. Please call the lab [id number] within 24 hours of collection time if culture is needed Performed By: #### 3 0965 ####[facility] [place] [address], [facility] BILIRUBIN Negative Normal NEGATIVE [facility] Comment on above: Order Comment: No: D o not add to previous drawCriteria for reflexing a culture was not met. Please call the lab [id number] within 24 hours of collection time if culture is needed Performed By: #### 3 0965 ####[facility] [id number], [facility] BLOOD Negative Normal NEGATIVE [facility] Comment on above: Order Comment: No: D o not add to previous drawCriteria for reflexing a culture was not met. Please call the lab [id number] within 24 hours of collection time if culture is needed Performed By: #### 3 0965 ####[facility] [place] [address], [facility] COLOR STRAW Abnormal YELLOW [facility] Comment on above: Order Comment: No: D o not add to previous drawCriteria for reflexing a culture was not met. Please call the lab [id number] within 24 hours of collection time if culture is needed Performed By: #### 3 0965 ####[facility] [place] [address], [facility] GLUCOSE 150 mg/dL Abnormal NEGATIVE [facility] Comment on above: Order Comment: No: D o not add to previous drawCriteria for reflexing a culture was not met. Please call the lab [id number] within 24 hours of collection time if culture is needed Performed By: #### 3 0965 ####[facility] [place] [address], [facility] KETONE TRACE Abnormal NEGATIVE [facility] Comment on above: Order Comment: No: D o not add to previous drawCriteria for reflexing a culture was not met. Please call the lab [id number] within 24 hours of collection time if culture is needed Performed By: #### 3 0965 ####[facility] [facility] [place] [address], [facility] LEUK LINDA Negative Normal NEGATIVE [facility] Comment on above: Order Comment: No: D o not add to previous drawCriteria for reflexing a culture was not met. Please call the lab [id number] within 24 hours of collection time if culture is needed Performed By: #### 3 0965 ####[place] [address] [place] [place] [address], [facility] MICRO NOT DONE negative chemical reactions unless requested in original order Normal [facility] Comment on above: Order Comment: No: D o not add to previous drawCriteria for reflexing a culture was not met. Please call the lab [id number] within 24 hours of collection time if culture is needed Performed By: #### 3 0965 ####[address] [place] [address], [facility] NITRITE Negative Normal NEGATIVE [facility] Comment on above: Order Comment: No: D o not add to previous drawCriteria for reflexing a culture was not met. Please call the lab [email or web address] within 24 hours of collection time if culture is needed Performed By: #### 3 0965 ####[address] [place] [address], [facility] PH 7.0 Normal 5.0-8.0 [facility] Comment on above: Order Comment: No: D o not add to previous drawCriteria for reflexing a culture was not met. Please call the lab [email or web address] within 24 hours of collection time if culture is needed Performed By: #### 3 0965 ####[address] [place] [address], [facility] Protein mass conc Negative Normal NEGATIVE The [facility] Comment on above: Order Comment: No: D o not add to previous drawCriteria for reflexing a culture was not met. Please call the lab [email or web address] within 24 hours of collection time if culture is needed Performed By: #### 3 0965 ####[address] SPEC GRAV 1.004 Low 1.015-1.020 The [facility] Comment on above: Order Comment: No: D o not add to previous drawCriteria for reflexing a culture was not met. Please call the lab [email or web address] within 24 hours of collection time if culture is needed Performed By: #### 3 0965 ####[place] [id number] Vital Signs Date Time Vital Sign Value Performing Clinician Faci lity 01-19-2024 10:37-0400 Body height 160 cm Amparo Martinez APRN.IMAGING SCHEDULER Work Phone: [facility] 01-19-2024 10:37-0400 Body mass index (BMI) [Ratio] 25.86 kg/m2 Amparo Martinez APRN.IMAGING SCHEDULER Work Phone: [facility] 01-19-2024 10:37-0400 Body weight 66.22 kg Amparo Martinez APRN.IMAGING SCHEDULER Work Phone: [facility] 01-19-2024 10:37-0400 Diastolic blood pressure 74 mm[Hg] Amparo Martinez APRN.IMAGING SCHEDULER Work Phone: [facility] 01-19-2024 10:37-0400 Heart rate 75 /min Amparo Martinez APRN.IMAGING SCHEDULER Work Phone: [facility] 01-19-2024 10:37-0400 Systolic blood pressure 129 mm[Hg] Amparo Martinez APRN.IMAGING SCHEDULER Work Phone: [facility] 04-26-2022 09:46-0400 Body height 160 cm Araceli Nathan APRN.IMAGING SCHEDULER Work Phone: [facility] 04-26-2022 09:46-0400 Body weight 72.12 kg Araceli Nathan APRN.IMAGING SCHEDULER Work Phone: [facility] 04-26-2022 09:46-0400 Diastolic blood pressure 84 mm[Hg] Araceli Nathan SPRINKLER HELPER.IMAGING SCHEDULER Work Phone: [facility] 04-26-2022 09:46-0400 Heart rate 74 /min Araceli Nathan APRN.IMAGING SCHEDULER Work Phone: [facility] 04-26-2022 09:46-0400 Systolic blood pressure 126 mm[Hg] Araceli Nathan APRN.CNP Work Phone: [facility] Encounters Encounter Date Encounter Type Care Provider Facility Start: 02-18-2024 End: 02-18-2024 ambulatory HOWARD SANTIAGO Not Available Start: 01-19-2024 End: 01-19-2024 Patient encounter procedure Amparo Martinez SPRINKLER HELPER.IMAGING SCHEDULER Work Phone: [facility] Comment on above: Screening for malign ant neoplasm of colon (Primary Dx); Iron deficiency anemia, unspecified iron deficiency anemia type; Hiatal hernia; Family history of colon cancer Start: 01-12-2024 End: 01-12-2024 ambulatory HOWARD SANTIAGO Not Available Start: 01-05-2024 End: 01-05-2024 ambulatory DELFIN Nixon PETZNICK Not Available Start: 12-04-2023 End: 12-04-2023 ambulatory DELFIN M PETZNICK Not Available Start: 11-05-2023 Refill Jayashree Friday L PN Work Phone: [facility] Comment on above: Secondary osteoarthr itis, right shoulder Start: 10-13-2023 End: 10-13-2023 ambulatory DELFIN Nixon PETZNICK Not Available Start: 10-09-2023 End: 10-09-2023 ambulatory HOWARD SANTIAGO Not Available Start: 12-11-2022 Telephone encounter Spring Hunter MD Work Phone: Endocrinology Comment on above: Forms ([employer]) Start: 12-05-2022 Telephone encounter Spring Hunter MD Work Phone: Endocrinology Comment on above: Patient Update (Marilee ra) Start: 11-06-2022 Telephone encounter Spring Hunter MD Work Phone: Endocrinology Comment on above: Forms ([employer]) Start: 09-20-2022 End: 09-21-[address] HOWARD SANTIAGO Facility:[facility] Start: 07-04-2022 Telephone encounter Spring Hunter MD Work Phone: Endocrinology Comment on above: Patient Update (Diab etes Management & Supplies) Start: 04-26-2022 End: 04-26-2022 ambulatory ARACELI KOBE Facility:[facility] Start: 04-26-2022 End: 04-26-2022 Patient encounter procedure Araceli Nathan SPRINKLER HELPER.IMAGING SCHEDULER Work Phone: Endocrinology Comment on above: 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); Insulin pump status; Insulin pump titration; intermediate (current) use of insulin (HCC) Start: 03-19-2022 End: 03-20-[address] HOWARD SANTIAGO Facility: Start: 01-01-2022 End: 01-01-2022 ambulatory [facility] Facility:[facility] Start: 01-01-2022 Telephone encounter Araceli conley APRN.IMAGING SCHEDULER Work Phone: Endocrinology Comment on above: Dexcom Start: 08-20-2018 End: 08-21-2018 Patient encounter procedure HOWARD SANTIAGO [place] Start: 06-25-2018 End: 06-26-2018 Patient encounter AYLEEN VERNON Facility:[facility] Start: 06-15-2018 End: 06-17-2018 Evaluation and management of inpatient BRYCEBON AUGUST Facility:[facility] Start: 06-15-2018 End: 06-16-2018 Patient encounter DEFAULT PHYSICIAN Facility:[facility] Start: 06-10-2018 End: 06-11-2018 Patient encounter DEFAULT PHYSICIAN Facility:[facility] Procedures Date Procedure Procedure Detail Performing Clinician Start: 06-30-2017 Colonoscopy Araceli conley SPRINKLER HELPER.IMAGING SCHEDULER Work Phone: Start: 05-23-2016 Mammography Araceli conley SPRINKLER HELPER.IMAGING SCHEDULER Work Phone: Plan of Treatment Date Care Activity Detail Author Start: 06-30-2027 Screening for malignant neoplasm of colon [facility] Start: 12-30-2024 Hepatitis B surface antibody level LDL Cholesterol [facility] Start: 02-02-2025 Glaucoma screening Diabetes: Retinopathy Screening [facility] Start: 10-09-2024 Urine screening for protein Diabetes: Urine Protein Screening [facility] Start: 07-16-2024 End: 07-16-2024 Patient encounter procedure 07/16/2024 10:20 AM EDT Office Visit [facility] [address] [place] [address] Nakia Steele MD [address] [place] [address] [facility] Start: 07-06-2024 Hemoglobin A1c measurement HbA1C [facility] Start: 02-27-2024 End: 02-27-2024 Patient encounter procedure 02/27/2024 8:00 AM EDT Appointment [facility] [address] [place] [address] Sandy Cristobal I, MD [address] [place] [address] [facility] Start: 01-19-2024 End: 04-19-2024 CELIAC SCREEN WITH REFLEX CELIAC SCREEN WITH REFLEX Lab Routine Iron deficiency anemia, unspecified iron deficiency anemia type Expected: 01/19/2024, Expires: 04/19/2024 [facility] Work Phone: Comment on above: Expected: 01/19/2024, Expires: Start: 01-12-2024 Hemoglobin A1c measurement Diabetes: Hemoglobin A1C [facility] Start: 01-12-2024 End: 01-12-2024 Patient encounter procedure [facility] Start: 09-22-2023 Advance Directive Discussion Advance Directive Discussion [facility] Start: 09-22-2023 Behavioral Health Screening Behavioral Health Screening [facility] Start: 05-23-2023 Covid-19 Vaccine () Covid-19 Vaccine () [facility] Start: 10-27-2022 Hemoglobin A1c/Hemoglobin.total in Blood HBA1C [facility] Start: 09-22-2022 ADVANCE DIRECTIVE DISCUSSION ADVANCE DIRECTIVE DISCUSSION [facility] Start: 09-22-2022 DEPRESSION ASSESSMENT DEPRESSION ASSESSMENT [facility] Start: 07-03-2022 Hemoglobin A1c/Hemoglobin.total in Blood HBA1C [facility] Start: 06-30-2022 Colonoscopy COLONOSCOPY [facility] Start: 06-30-2022 COLORECTAL CANCER SCREENING COLORECTAL CANCER SCREENING [facility] Start: 06-30-2022 Screening for malignant neoplasm of colon [facility] Start: 06-26-2022 End: 08-26-2022 ALBUMIN/CREAT RATIO RND UR ALBUMIN/CREAT RATIO RND UR Lab Routine 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) Expected: 06/26/2022, Expires: 08/26/2022 [facility] Work Phone: Comment on above: Expected: 06/26/2022, Expires: 2 Start: 06-26-2022 End: 08-26-2022 Comprehensive metabolic 2000 panel - Serum or Plasma COMP METABOLIC PANEL Lab Routine 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) Expected: 06/26/2022, Expires: 08/26/2022 [facility] Work Phone: Comment on above: Expected: 06/26/2022, Expires: 2 Start: 06-26-2022 End: 08-26-2022 Lipid 1996 panel - Serum or Plasma LIPID PANEL BASIC Lab Routine 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) Expected: 06/26/2022, Expires: 08/26/2022 [facility] Work Phone: Comment on above: Expected: 06/26/2022, Expires: 2 Start: 06-07-2022 Hepatitis B screening URINE ALBUMIN:CREATININE RATIO [facility] Start: 06-07-2022 Hepatitis B surface antibody level LDL CHOLESTEROL [facility] Start: 05-23-2022 Influenza vaccination INFLUENZA (#1) [facility] Start: 04-01-2022 Hemoglobin A1c/Hemoglobin.total in Blood HBA1C [facility] Start: 12-27-2021 COVID-19 VACCINE (4 - Booster for Moderna series) COVID-19 VACCINE (4 - Booster for Moderna series) [facility] Start: 2022 COVID-19 VACCINE (4 - Booster for Moderna series) COVID-19 VACCINE (4 - Booster for Moderna series) [facility] Start: 09-22-2021 ADVANCE DIRECTIVE DISCUSSION ADVANCE DIRECTIVE DISCUSSION [facility] Start: 09-22-2021 DEPRESSION ASSESSMENT DEPRESSION ASSESSMENT [facility] Start: 09-24-2020 Shingrix Vaccine (3 of 3) Shingrix Vaccine (3 of 3) [facility] Start: 08-03-2017 PNEUMOVAX AGE 65 AND OVER WITH 5YR LOOKBACK (#1) PNEUMOVAX AGE 65 AND OVER WITH 5YR LOOKBACK (#1) [facility] Start: 05-23-2017 3 comp foot exam completed DIABETIC FOOT EXAM [facility] Start: 05-23-2017 Diabetic foot examination Diabetic Foot Exam [facility] Start: 05-23-2017 Mammography MAMMOGRAM [facility] Start: 05-23-2017 Screening for malignant neoplasm of breast Mammogram Screening [facility] Start: 02-20-2017 Glaucoma screening Dilated Retinal Exam [facility] Start: 02-20-2017 Hepatitis C antibody, confirmatory test DILATED RETINAL EXAM [facility] Start: 08-03-2013 PNEUMOCOCCAL: 65+ (2 - PCV) PNEUMOCOCCAL: 65+ (2 - PCV) [facility] Start: 10-30-2012 SHINGRIX VACCINE (2 of 3) SHINGRIX VACCINE (2 of 3) [facility] Start: 2011 RSV Vaccine (1 - 1-dose 60+ series) RSV Vaccine (1 - 1-dose 60+ series) [facility] Start: 02-02-1996 COLOGUARD (FIT-DNA) COLOGUARD (FIT-DNA) [facility] Start: 02-02-[address] COLONOGRAPHY [facility] Start: 02-02-1996 FECAL OCCULT BLOOD FECAL OCCULT BLOOD [facility] Start: 02-02-1996 Screening for malignant neoplasm of colon [facility] Start: 02-02-1996 SIGMOIDOSCOPY SIGMOIDOSCOPY [facility] Start: 1991 Screening for malignant neoplasm of breast Mammogram [facility] Start: 1970 Urine microalbumin profile [facility] Start: 1969 ANNUAL PCP TEAM CHRONIC DISEASE VISIT ANNUAL PCP TEAM CHRONIC DISEASE VISIT [facility] Start: 1963 Adult depression screening assessment DEPRESSION SCREENING [facility] Start: 1951 Screening for malignant neoplasm of colon [facility] End: 01-18-2025 EGD DIAGNOSTIC EGD DIAGNOSTIC Endoscopy Routine Iron deficiency anemia, unspecified iron deficiency anemia type Hiatal hernia 1 Occurrences starting 01/19/2024 until 01/18/2025 [facility] Comment on above: 1 Occurrences starting 01/19/2024 until 01/18/2025 Hemoglobin A1c/Hemoglobin.total in Blood HEMOGLOBIN A1C (POC) Lab Routine 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) Ordered: 04/26/2022 [facility] Work Phone: Comment on above: Ordered: 04/26/2022 End: 01-18-2025 Screening colonoscopy COLONOSCOPY SCREENING Endoscopy Routine Iron deficiency anemia, unspecified iron deficiency anemia type Screening for malignant neoplasm of colon 1 Occurrences starting 01/19/2024 until 01/18/2025 [facility] Comment on above: 1 Occurrences starting 01/19/2024 until 01/18/2025 [facility] Immunizations Immunization Date Immunization Notes Care Provider Byron mix 07-23-2023 Influenza, High-dose Seasonal, Quadrivalent, Preservative Free Jayashree Friday SALES AMBASSADOR Work Phone: [facility] 08-13-2022 influenza, high dose seasonal, preservative-free Jayashree Friday SALES AMBASSADOR Work Phone: [facility] 06-13-2022 Moderna Bivalent Alvarado ster Vaccination Jayashree Friday SALES AMBASSADOR Work Phone: [facility] 06-12-2021 influenza, high-dose , quadrivalent vaccine (FLUZONE HIGH DOSE QUADRIVALENT) Araceli Nathan APRN.IMAGING SCHEDULER Work Phone: [facility] 07-30-2020 zoster vaccine recombinant Jayashree Friday SALES AMBASSADOR Work Phone: [facility] 07-18-2020 influenza, high-dose , quadrivalent vaccine (FLUZONE HIGH DOSE QUADRIVALENT) Araceli Nathan APRN.IMAGING SCHEDULER Work Phone: [facility] 07-20-2019 Influenza, injectabl e, Madin [place] Canine Kidney, quadrivalent with preservative Jayashree Friday SALES AMBASSADOR Work Phone: [facility] 07-08-2018 Influenza, High-dose Seasonal, Quadrivalent, Preservative Free Jayashree Friday SALES AMBASSADOR Work Phone: [facility] 07-04-2017 pneumococcal polysaccharide vaccine, 23 valent Jayashree Friday SALES AMBASSADOR Work Phone: [facility] 06-16-2017 Influenza, High-dose Seasonal, Quadrivalent, Preservative Free Jayashree Friday SALES AMBASSADOR Work Phone: [facility] 07-30-2016 influenza, injectabl e, quadrivalent, preservative free Jayashree Friday SALES AMBASSADOR Work Phone: [facility] 07-01-2016 influenza, high dose seasonal, preservative-free Araceli Kobe SPRINKLER HELPER.IMAGING SCHEDULER Work Phone: [facility] 03-11-2016 pneumococcal conjuga te vaccine, 13 valent Jayashree Friday SALES AMBASSADOR Work Phone: [facility] 01-22-2016 pneumococcal conjuga te vaccine, 13 valent Jayashree Friday SALES AMBASSADOR Work Phone: [facility] 07-05-2014 seasonal influenza, intradermal, preservative free Jayashree Friday SALES AMBASSADOR Work Phone: [facility] 07-23-2013 pneumococcal polysaccharide vaccine, 23 valent Jayashree Friday SALES AMBASSADOR Work Phone: [facility] 07-07-2013 zoster vaccine, live Jayashree M SALES AMBASSADOR Work Phone: [facility] 09-04-2012 zoster vaccine, live Araceli Kobe SPRINKLER HELPER.IMAGING SCHEDULER Work Phone: [facility] 08-03-2012 pneumococcal polysaccharide vaccine, 23 valent Araceli Kobe SPRINKLER HELPER.IMAGING SCHEDULER Work Phone: [facility] 06-28-2005 pneumococcal polysaccharide vaccine, 23 valent Araceli Kobe SPRINKLER HELPER.IMAGING SCHEDULER Work Phone: [facility] Payers Date Payer Category Payer Private Health Insurance [facility] IN[employer]MNITY [id number] 2015-Present [phone] [address] [place] [address] Indemnity [id number] 2015 Private Health Insurance [id number] 2004 Medicare [id number] 2004 Medicare [id number] 1959 Medicare [id number] 1959 Unknown [id number] 1951 Unknown [id number] 2.16.840.1.785683.3.579. 2.647 1951 Unknown [id number] 2.16.840.1.262527.3.579. 2.647 1951 Unknown [id number] 2.16.840.1.812499.3.579. 2.647 1951 Unknown [id number] 2.16.840.1.751282.3.579. 2.647 1951 Unknown [id number] 2.16.840.1.808899.3.579. 2.727 1951 Unknown [id number] 2.16.840.1.420284.3.579. 2.593 1951 Unknown [id number] 2.16.840.1.266367.3.579. 2.593 1951 Unknown [id number] 2.16.840.1.664173.3.579. 2.1259 1951 Unknown [id number] 2.16.840.1.093423.3.579. 2.1259 1951 Unknown [id number] 2.16.840.1.051347.3.579. 2.1259 1951 Unknown [id number] 2.16.840.1.678481.3.579. 2.1259 1951 Unknown [id number] 2.16.840.1.944093.3.579. 2.1259 1951 Unknown [id number] 2.16.840.1.538761.3.579. 2.1259 Medicare [id number] Unknown Social History Date Type Detail Facility Start: 07-29-2011 Tobacco smoking status NHIS Ex-smoker [facility] End: 09-22-2002 History of tobacco use Current smoker [facility] End: 09-22-2002 History of tobacco use Cigarette Smoker [facility] Start: 01-01-2022 End: 01-19-2024 Alcohol intake Current drinker of alcohol (finding) [facility] Start: 1950 Sex Assigned At Female [facility] Start: 12-22-2021 End: 01-01-2022 Exposure to SARS-CoV-2 (event) Not sure [facility] Start: 07-29-2011 End: 01-19-2024 Cigarettes smoked current (pack per day) - Reported 1 [facility] Start: 07-29-2011 End: 02-13-2023 Tobacco use and exposure Smokeless tobacco non-user [facility] Work Phone: Start: 02-13-2023 Tobacco smoking status [facility] Never smoked tobacco [facility] Start: 10-13-2023 Alcohol intake Lifetime non-drinker (finding) [facility] Start: 04-30-2023 End: 01-19-2024 Humiliation, Afraid, Rape, and Kick questionnaire [HARK] [facility] Within the last year , have you been afraid of your partner or ex-partner? No [facility] Do you belong to any clubs or organizations such as hoahaoism groups, unions, fraternal or athletic groups, or school groups? Yes [...] - these days [OSQ] To some extent [facility] (I/We) worried wheth er (my/our) food would run out before (I/we) got money to buy more. Never true [facility] Start: 01-24-2023 Alcohol Comment Caffeine: Coffee, Intake: 2-3 cups per day [facility] Start: 1950 Sex Assigned At Not on file [facility] Start: 09-17-2021 Gender identity Identifies as female gender (finding) [facility] Start: 09-17-2021 Sexual orientation Heterosexual (finding) [facility] Medical Equipment Procedure Code Equipment Code Equipment Original Text Equipment Identifier Dates [id number] Start: 11-04-2013 Comment on above: One touch ultra blue test strips, insulin pump, iddm, 250.00, tests 5 x daily. Wire Kait .045in Stainless Steel 4in Fixation 2 [place] - [id number] Start: 11-02-2015 [id number], [id number], [id number], [id number], [id number] Start: 04-10-2021 End: 01-19-2024 Comment on above: USE TO TEST BLOOD PRETTY GARS 5 TIMES DAILY Use as directed four times daily for insulin injections in case of pump failure Dx: E10.649 Use to test blood pretty gar 8 times daily One touch ultra blue test strips, insulin pump, iddm, 250.00, tests 5 x daily. [id number] Start: 11-04-2013 End: 01-19-2024 Clinical Notes 12-18-2009 to 01-19-2024 Amparo Martinez APRN.[facility] - 01/19/2024 11:00 AM EDTTelephone Encounter - [...] Performing Organization Information Site ID: [id number] Name: [facility] Address: [address] [place] [address], [address] [place] [id number] Director: Félix Elder MD Specimen Collected: 01/12/24 10:46 AM Performed by: MONA Last Resulted: 01/13/24 10:49 AM Received From: [facility] [employer] Result Received: 01/19/24 9:59 AM CBC and [...] 0.2 Resulting Agency [facility] Narrative Performed by Vehrity FASTING:YES FASTING: YES Resulting Agency Comment Performing Organization Information Site ID: [id number] [facility] Address: [facility] [place] [address] Director: Cristhian Murphy Specimen Collected: 12/31/23 8:39 AM Performed by: Vehrity Last Resulted: 01/01/24 6:16 AM Received From: [facility] Result Received: 01/19/24 9:59 AM ASSESSMENT/PLAN: 1. Screening for malignant neoplasm of colon - ICD9: V76.51, ICD10: Z12.11 (primary diagnosis) - Due for screening. Colonoscopy 06/2017 revealed sigmoid diverticulosis, otherwise normal exam. Repeat was recommended in 5 years. [facility] in her sister. - COLONOSCOPY [...] to surgery. - EGD DIAGNOSTIC Amparo Martinez APRN.[facility] Gastroenter[facility] [address] [place] [address], [address] [place] [id number] Department: [phone] This note was generated with voice recognition software and may contain errors, including spelling, grammar, syntax and misrecognition of what was dictated, that are not fully corrected. documented in this encounter [facility] 11-05-2023 Telephone encounter Note OARRS reviewed, Rx sent into patient's pharmacy. [facility] 11-05-2023 Miscellaneous Notes OARRS reviewed, Rx sent into patient's pharmacy. documented in this encounter [facility] 12-11-2022 Miscellaneous Notes Received a fax from [employer] requesting C Peptide and Fasting glucose under 225 mg/dl done on the same day and A1C. Printed labs from 01/05/2003 and and printed A1C's from 01/27/13 & 04/26/22, faxed to [phone]. Confirmation received. documented in this encounter [facility] 12-05-2022 Miscellaneous Notes Received a fax from [employer] requesting copy of patient labs for C Peptide and fasting glucose. Faxed results, Confirmation received. documented in this encounter [facility] 11-06-2022 Miscellaneous Notes Received a form from [employer] for CGM and Pump supplies. Requesting last office notes within last 6 months. Printed notes from 04/26/22. Faxed completed form and notes. Confirmation received. documented in this encounter [facility] 07-04-2022 Miscellaneous Notes Received a fax from [facility] requesting last 2 office notes. Faxed notes from 09/26/21 and 04/26/22 to [phone]. Confirmation received. documented in this encounter [facility] 04-26-2022 Note HNO ID: [id number] Author: Araceli Nathan APRN.IMAGING SCHEDULER Service: ? Author Type: Nurse Practitioner Type: Progress Notes Filed: 04/26/2022 10:30 AM Note Text: 72yo WF with h/o DM1 since age 56, on Medtronic 670G pump in 09/2019, hypoglycemia unawareness, neuropathy, HTN, HLP, osteoporosis, here for f/u, followed by Dr. Hunter and I. At [facility] we increased carb ratio as she [...] Medication Sig - Blood-Glucose Meter,Continuous (DEXCOM G6 ELECTRONICS UTILITY WORKER) misc USE TO TEST BLOOD SUGARS 5 TIMES DAILY - Blood-Glucose Sensor ([employer] G6 SENSOR) shayy USE TO TEST BLOOD SUGARS 5 TIMES DAILY - Blood-Glucose Transmitter (Microla[employer]COM G6 TRANSMITTER) shayy USE TO TEST BLOOD SUGARS 5 TIMES DAILY - blood sugar diagnostic (Proxio NEXT TEST STRIPS) test strip USE TO [...] - Subcutaneous Insulin Pump (PARADIGM INSULIN PUMP) mis 523 Basal: 24:00- 00.35. 300-0.55; 0700-0.75 2300-0.375. [...] Take 1 capsu (more content not included)... [facility] 04-26-2022 Instructions Araceli Nathan APRN.RHEA - 04/26/2022 10:13 AM EDT Basal: MN 0.500-->0.425 9a 0.800-->0.700 Noon 0.700 5p 0.650 10p 0.450 Carb MN 18 10a 20 Sensitivity MN 50 Obtain labs Follow up with Dr. Hunter in 2 months documented in this encounter [facility] 04-26-2022 History of Present illness Narrative 72yo WF with h/o DM1 since age 56, on Medtronic 670G pump in 09/2019, hypoglycemia unawareness, neuropathy, HTN, HLP, osteoporosis, here for f/u, followed by Dr. Hunter and I. At [facility] we increased carb ratio as she [...] Visit Medication Sig Blood-Glucose Meter,Continuous (DEXCOM G6 ELECTRONICS UTILITY WORKER) misc USE TO TEST BLOOD SUGARS 5 TIMES DAILY Blood-Glucose Sensor (DEXCOM G6 SENSOR) shayy USE TO TEST BLOOD SUGARS 5 TIMES DAILY Blood-Glucose Transmitter (DEXCOM G6 TRANSMITTER) shayy USE TO TEST BLOOD SUGARS 5 TIMES DAILY blood sugar diagnostic (CONTOUR NEXT TEST STRIPS) test strip USE TO TEST BLOOD SUGARS 5 TIMES DAILY carisoprodol (SOMA ORAL) Take by mouth. Lancets ([employer] Creative CommunicationTOUCH ULTRASOFT LANCETS) lancets Use to test blood [...] daily Subcutaneous Insulin Pump (PARADIGM INSULIN PUMP) [facility] 523 Basal: 24:00- 00.35. 300-0.55; 0700-0.75 2300-0.375. [...] -As above Insulin pump titration -As above buttermaker continuous churn (current) use of insulin (HCC) -As above F/u [address] Hunter as scheduled Some elements copied from my note (01/01/2022) which have been updated where appropriate, and all reflect current medical decision making from date of this visit. Araceli Nathan APRN.RHEA documented in this encounter [facility] 01-01-2022 Miscellaneous Notes Prescriptions faxed to Diabetes [...] inquire for a form for Dexcom G6. [facility] states we can fax a prescription to : [phone] and they will send us what form is needed. documented in this encounter [facility] 01-01-2022 Note HNO ID: [id number] Author: Araceli Nathan APRN.CNP Service: ? Author [...] Medication Sig - Blood-Glucose Meter,Continuous (DEXCOM G6 ELECTRONICS UTILITY WORKER) misc USE TO TEST BLOOD SUGARS 5 [...] - Subcutaneous Insulin Pump (PARADIGM INSULIN PUMP) [facility] 523 Basal: 24:00- 00.35. 300-0.55; 0700-0.75 2300-0.375. [...] daily. No cur (more content not included)... [facility] 12-18-2009 History of Past i llness Narrative Problem Noted Date Resolved Date Diabetes mellitus type 1, un controlled, without complications 12/18/2009 08/23/2016 Type II or unspecified type diabetes mellitus without mention of complication, uncontrolled 07/22/2005 12/18/2009 Type II or unspecified type diabetes mellitus without mention of complication, not stated as uncontrolled 07/22/2005 documented as of this encounter (statuses as of 01/01/2022) [facility] History of Past illness Narrative* Problem Noted Date Resolved Date Diabetes mellitus type 1, un controlled, without complications 12/18/2009 08/23/2016 Type II or unspecified type diabetes mellitus without mention of complication, uncontrolled 07/22/2005 12/18/2009 Type II or unspecified type diabetes mellitus without mention of complication, not stated as uncontrolled 07/22/2005 documented as of this encounter (statuses as of 04/26/2022) [facility] History of Past illness Narrative* Problem Noted Date Resolved Date Diabetes mellitus type 1, un controlled, without complications 12/18/2009 08/23/2016 Type II or unspecified type diabetes mellitus without mention of complication, uncontrolled 07/22/2005 12/18/2009 Type II or unspecified type diabetes mellitus without mention of complication, not stated as uncontrolled 07/22/2005 documented as of this encounter (statuses as of 07/10/2022) [facility] History of Past illness Narrative* Problem Noted Date Resolved Date Diabetes mellitus type 1, un controlled, without complications 12/18/2009 08/23/2016 Type II or unspecified type diabetes mellitus without mention of complication, uncontrolled 07/22/2005 12/18/2009 Type II or unspecified type diabetes mellitus without mention of complication, not stated as uncontrolled 07/22/2005 documented as of this encounter (statuses as of 11/07/2022) [facility] History of Past illness Narrative* Problem Noted Date Resolved Date Diabetes mellitus type 1, un controlled, without complications 12/18/2009 08/23/2016 Type II or unspecified type diabetes mellitus without mention of complication, uncontrolled 07/22/2005 12/18/2009 Type II or unspecified type diabetes mellitus without mention of complication, not stated as uncontrolled 07/22/2005 documented as of this encounter (statuses as of 12/05/2022) [facility] History of Past illness Narrative* Problem Noted Date Resolved Date Diabetes mellitus type 1, un controlled, without complications 12/18/2009 08/23/2016 Type II or unspecified type diabetes mellitus without mention of complication, uncontrolled 07/22/2005 12/18/2009 Type II or unspecified type diabetes mellitus without mention of complication, not stated as uncontrolled 07/22/2005 documented as of this encounter (statuses as of 12/11/2022) [facility] Diagnosis 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) Type I (juvenile type) diabetes mellitus with other specified manifestations, not stated as uncontrolled Insulin pump status [facility] Diagnosis 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)- Primary Type I (juvenile type) diabetes mellitus with other specified manifestations, not stated as uncontrolled Insulin pump status Insulin pump titration Fitting and adjustment of insulin pump intermediate (current) use of insulin (HCC) [facility] Diagnosis Secondary osteoarthritis, right shoulder documented in this encounter [facility]* Diagnosis Screening for malignant neoplasm of colon- Primary Iron deficiency anemia, unspecified iron deficiency anemia type Hiatal hernia Diaphragmatic hernia without mention of obstruction or gangrene Family history of colon cancer Family history of malignant neoplasm of gastrointestinal tract documented in this encounter [facility] for referral (narrative)* Outpatient Procedure (Routine) - Authorized Specialty Diagnoses / Procedures Referred By Contac t Referred To Contact [facility] Diagnoses Iron deficiency anemia, unspecified iron deficiency anemia type Hiatal hernia Procedures EGD DIAGNOSTIC ESOPHAGOGASTRODUODENOSC OPY TRANSORAL DIAGNOSTIC Amparo Martinez APRN.IMAGING SCHEDULER [address] [facility] [address] [place] [address] [place] [phone] Referral ID Status Reason Start Date Expiration Date Visits Requested Visits Authorized [id number] Authorized Auto-Generat ed Referral 01/19/2024 01/18/2025 1 1 * Outpatient Procedure (Routine) - Authorized Specialty Diagnoses / Procedures Referred By Dre guillen Referred To Contact [facility] Diagnoses Iron deficiency anemia, unspecified iron deficiency anemia type Screening for malignant neoplasm of colon Procedures COLONOSCOPY SCREENING COLONOSCOPY FLX DX W/COLLJ SPEC WHEN PFRMD Amparo Martinez APRN.IMAGING SCHEDULER [address] [facility] [address] [place] [address] [place] [phone] Referral ID Status Reason Start Date Expiration Date Visits Requested Visits Authorized [id number] Authorized Auto-Generat ed Referral 01/19/2024 01/18/2025 1 1 [facility] Summary Purpose Family History No Family History Records FoundNo Family History Records FoundNo Family History Records FoundNo Family History Records FoundNo Family History Records FoundNo Family History Records FoundNo Family History Records FoundNo Family History Records FoundNo Family History Records Found Advance Directives No Advanced Directives Records FoundDocuments on File Type Date Recorded 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 Advance Directive(s) 04/15/2019 8:02 AM Advance Directive(s) 06/30/2017 9:10 AM Advance Directive(s) 03/01/2016 8:02 AM Advance Directive(s) 01/26/2016 7:31 AM Advance Directive(s) 11/02/2015 8:54 AM Advance Directive(s) 11/02/2015 9:04 AM Documents on File Type Date Recorded 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 Admitted: 06/15/2018 Discharged: 06/17/2018 Date of : 1950 Physician: Bryce August MD DISCHARGE SUMMARYHOSPITAL COURSE: The patient is a 68-year-old female with past medicalhistory significant for newly diagnosed hypertension and diabetes, whop[facility] from [facility]. The patient was found tohave high blood pressure 230/120 at the Cardiology office from where shewas sent to the [facility] and then transferred to the [facility]. At the timeof this presentation, the patient [...] section and content) DATE CREATED AUTHOR 08/04/2018 [facility] DATE CREATED AUTHOR AUTHOR'S ORGANIZ ATION 08/31/2018 [facility] DATE CREATED AUTHOR AUTHOR'S ORGANIZ ATION 03/12/2019 [facility] DATE CREATED AUTHOR AUTHOR'S ORGANIZ ATION 04/15/2019 [facility] DATE CREATED AUTHOR AUTHOR'S ORGANIZ ATION 07/27/2021 [facility] DATE CREATED AUTHOR AUTHOR'S ORGANIZ ATION 11/15/2021 [facility] DATE CREATED AUTHOR AUTHOR'S ORGANIZ ATION 09/21/2022 [facility] DATE CREATED AUTHOR AUTHOR'S ORGANIZ ATION 12/12/2022 [facility] DATE CREATED AUTHOR AUTHOR'S ORGANLUCIAON ATION 02/19/2024 [facility] EPIC Source Comments (unrecognize d section and content) In the event this informatio n is protected by the Federal Confidentiality of Alcohol and Drug Abuse Patient Records regulations: The Federal rules restrict any use of the information to criminally investigate or prosecute any alcohol or drug abuse patient.[facility] the event this information is protected by the Federal Confidentiality of Alcohol and Drug Abuse Patient Records regulations: The Federal rules restrict any use of the information to criminally investigate or prosecute any alcohol or drug abuse patient.[facility] the event this information is protected by the Federal Confidentiality of Alcohol and Drug Abuse Patient Records regulations: The Federal rules restrict any use of the information to criminally investigate or prosecute any alcohol or drug abuse patient.[facility] the event this information is protected by the Federal Confidentiality of Alcohol and Drug Abuse Patient Records regulations: The Federal rules restrict any use of the information to criminally investigate or prosecute any alcohol or drug abuse patient.[facility] the event this information is protected by the Federal Confidentiality of Alcohol and Drug Abuse Patient Records regulations: The Federal rules restrict any use of the information to criminally investigate or prosecute any alcohol or drug abuse patient.[facility] the event this information is protected by the Federal Confidentiality of Alcohol and Drug Abuse Patient Records regulations: The Federal rules restrict any use of the information to criminally investigate or prosecute any alcohol or drug abuse patient.[facility] the event this information is protected by the Federal Confidentiality of Alcohol and Drug Abuse Patient Records regulations: The Federal rules restrict any use of the information to criminally investigate or prosecute any alcohol or drug abuse patient.[facility] Reason for Visit (unrecogniz ed section and content) Reason Comments Dexcom Reason Comments Diabetes Reason Comments Patient Update [facility] Reason Comments Forms [employer] Reason Comments Patient Update [place] Reason Onset Date Comments Med Refill 11/05/2023 Reason Comments Established Patient Colon consult Care Teams (unrecognized sec tion and content) Contracts Attorney Relationship Specialty Start Date End Date Howard Santiago II PCP - General Internal Medicine 06/07/11 Contracts Attorney Relationship Specialty Start Date End Date Howard Santiago II PCP - General Internal Medicine 06/07/11 Contracts Attorney Relationship Specialty Start Date End Date Howard Santiago II PCP - General Internal Medicine 06/07/11 Contracts Attorney Relationship Specialty Start Date End Date Howard Santiago MD [address] [facility] [address] [place] [address] PCP - General Internal Medicine 01/27/23 Howard Santiago MD [address] [facility] [address] [place] [address] PCP - ACO Reach 02/13/23 Contracts Attorney Relationship Specialty Start Date End Date Howard [...] BE BASED ON THE PRIMARY CLINICAL RECORDS. [employer] provides no warranty or guarantee of the accuracy or completeness of information in this document.
[2024-03-05] MEDS: 0.9 % SODIUM CHLORIDE 1,000 ML 1000 ML IV (12:21)
[2024-03-05 12:28] LABS: Basophils Percent Auto 0.1 % (0.2-2.0); Eosinophils Percent Auto 0.3 % (0.9-7.0); Hematocrit 34.5 % (36.0-48.0); Hemoglobin 11.8 g/dL (12.0-16.0); Immature Granulocytes Abs Auto 0.15 10^3/uL (0.00-0.03); Immature Granulocytes Pct Auto 1.4 % (0.0-0.5); Lymphocytes Absolute Auto 1.8 10^3/uL (1.2-3.8); Lymphocytes Percent Auto 16.8 % (20.5-60.0); Mean Corpuscular HGB Conc 34.2 g/dL (29.9-35.2); Mean Corpuscular Hemoglobin 26.9 pg (26.7-34.0); Mean Corpuscular Volume 78.8 fL (81.0-99.0); Mean Platelet Volume 9.8 fL (9.5-13.5); Monocytes Absolute Auto 0.9 10^3/uL (0.3-0.8); Monocytes Percent Auto 8.7 % (1.7-12.0); Neutrophils Absolute Auto 7.7 10^3/uL (1.4-6.5); Neutrophils Percent Auto 72.7 % (43.0-75.0); Platelet Count 391 10^3/uL (150-450); Red Blood Count 4.38 10^6/uL (4.20-5.40); Red Cell Distribution Width 18.5 % (11.0-15.0); White Blood Count 10.6 10^3/uL (4.0-11.0)
[2024-03-05 12:36] LABS: Anion Gap 20.7; BUN Creatinine Ratio 6.3; Calcium 8.2 mg/dL (8.5-10.1); Carbon Dioxide 24.7 mmol/L (21.0-32.0); Estimated GFR (African America >60 (>=60); Estimated GFR (Non-African Ame >60 (>=60); Glucose 284 mg/dL (74-106)
--- NOTE | 2024-03-05 12:36 | CT_ITS ---
[address] [place], [place] [address] Patient Name: RODRIGUE WALLACE MRN: [id number] date: 1950 Sex: F Assigned Patient Location: ER Current Patient Location: .[facility] Accession/Order Number: [id number] Exam Date: 03/05/2024 13:13 Report Date: 03/05/2024 13:47 At the request of: AARON SMITH Procedure: CT abdomen pelvis w con EXAMINATION: CT abdomen pelvis w con HISTORY: Recent diverticulitis, reported fever, low blood pressure COMPARISON: No relevant comparison available. TECHNIQUE: CT images were created with IV contrast. Axial, Coronal, and Sagittal images. Dose reduction techniques were achieved by using automated exposure control and/or adjustment of mA and/or kV according to patient size and/or use of iterative reconstruction technique. FINDINGS: LUNG BASES: No visible pulmonary or pleural disease. LIVER: No enlargement, atrophy, abnormal density, or significant focal lesion. BILIARY: Diffuse hypoattenuation suggesting hepatic steatosis. Area of hypodensity at the falciform ligament possibly focal increased fat PANCREAS: No lesion, fluid collection, ductal dilatation, or atrophy. SPLEEN: No enlargement or focal lesion. ADRENALS: No mass or enlargement. KIDNEYS: No mass, obstruction, or calcification. BOWEL/MESENTERY: Large posterior diaphragmatic hernia containing the stomach. Moderate colonic diverticulosis without evidence of acute diverticulitis. Normal appendix. AORTA/VASCULAR: No aortic aneurysm. Moderate calcific atherosclerosis RETROPERITONEUM: No mass or adenopathy. LYMPH NODES: No adenopathy. URINARY BLADDER: No visible focal wall thickening, lesion, or calculus. PELVIC ORGANS: Hysterectomy ABDOMINAL WALL: No mass or hernia. Bilateral calcified breast implants BONES: No bony lesion or fracture. Anterior wedging L1-L2 and L4 vertebral bodies. Interbody spacer L5-S1 OTHER: Negative. CT/CT abdomen pelvis w con IMPRESSION: Diverticulosis without evidence of acute diverticulitis No acute intraperitoneal abnormality Electronically authenticated by: JERAMY REYNA Date: 03/05/2024 13:47
[2024-03-05 12:41] LABS: Bilirubin Urine SMALL (NEGATIVE); Blood Urine NEGATIVE (NEGATIVE); Clarity Urine CLEAR (CLEAR); Color Urine YELLOW (YELLOW); Glucose Urine UA NEGATIVE (NEGATIVE); Ketones Urine >=80 mg/dL (NEGATIVE); Leukocyte Esterase Urine NEGATIVE (NEGATIVE); Nitrite Urine NEGATIVE (NEGATIVE); Protein Urine NEGATIVE (NEG/TRACE); Specific Gravity Urine >=1.030 (1.005-1.025); Urobilinogen Urine 0.2 EU/dL (0.2-1.0)
[2024-03-05 12:50] LABS: RBC Urine NONE SEEN #/HPF (0-2); WBC Urine 0-2 #/HPF (NONE SEEN)
[2024-03-05 12:51] LABS: Bacteria Urine NONE SEEN #/HPF (NONE SEEN); Mucus Urine NONE SEEN (NONE SEEN); Squamous Epithelial Cell Urine FEW #/LPF (NONE/RARE)
[2024-03-05 12:57] LABS: Chloride 78 mmol/L (98-107); Potassium 2.4 mmol/L (3.5-5.1); Sodium 121 mmol/L (136-145)
[2024-03-05] MEDS: POTASSIUM BICARBONATE/CIT 25 MEQ TABLET EFF 50 MEQ PO (15:17)
--- OUTSIDE RECORDS SUMMARY | 2024-03-05 16:39 | XMS_ITS | CCD ---
Author Organization [facility] Care Team Providers Care Systems Development Manager Name Role Phone PHYSICIAN, DEFAULT Unavailable Unavailable [...] Care Unavailable JACK, DR JERONIMO Consulting Unavailable [place], DR JERAMY Martinez Consulting Unavailable TRUE COELLO [...] [PENICILLINS] Drug allergy (disorder) 06-28-20 05 [facility] Repository (1 source) No Known Allergies; Translations: [No Known Allergies] Propensity to adverse reactions (disorder) [facility] Repository (1 source) Penicillin; Translations: [penicillin] Drug Allergy [facility] Repository (8 sources) Alendronate; Translations: [ALENDRONATE SODIUM] Drug Allergy 11-08-19 15 Other: See Comments [facility] Work Phone: (8 sources) Nitrofurantoin; Translations: [NITROFURANTOIN MACROCRYSTAL] Drug Allergy 05-23-20 16 Vomiting [facility] (1 source) Penicillins Propensity to adverse reactions 06-28-20 05 Itching [facility] (6 sources) Penicillins Propensity to adverse reactions 06-28-20 05 Itching [facility] (1 source) Acetaminophen / oxyCODONE Drug Allergy 01-29-20 23 Rash [facility] (1 source) Alendronate Drug Allergy 11-08-19 15 Other [facility] (1 source) hydroCHLOROthiazide Drug Allergy 01-29-20 23 [facility] (1 source) Nitrofurantoin Drug Allergy 01-29-20 23 [facility] (1 source) Penicillin G Drug Allergy 01-29-20 23 Hives [facility] (1 source) tamsulosin Drug Allergy 02-20-20 23 [facility] Medications Current Medications Medication Drug Class(es) Dates Sig (Normalized) Sig (Original) acetaminophen 325 mg / HYDROcodone bitartrate 10 mg oral tablet (9 sources) Opioid Agonist Start: 10-06-2023 End: 12-05-2023 take 1 tablet by mouth every six hours for pain HYDROcodone-aceta minophen ([place]) 10-325 MG tablet Indications: Pain , M15.0 Take 1 tablet by mouth every 6 (six) hours if needed for moderate pain 120 tablet 0 11/05/2023 12/05/2023 Active Start: 12-05-2014 HYDROcodone-ac etaminophen (NORCO) 5-325 mg per tablet Take one-two tablets every six hours as needed for pain 0 12/05/2014 Active Comment on above: Take one-two tablets every six hours as needed for pain [id number] actuat albuterol 0.09 mg/actuat metered dose [...] Comment on above: Take 1 capsule by [facility] once daily. cholecalciferol 0.025 mg oral tablet (8 sources) Vitamin D Start: 016 take 2 tablets by mouth once daily cholecalciferol (VITAMIN D3) 1,000 unit tab Take 2 tablets by mouth once daily. 0 11/21/2015 Active Start: 02-10-2012 take 1 capsule by mo [facility] in the morning cholecalciferol (Vitamin D-3) 50 MCG (1999 UT) capsule Take 2,000 Units by mouth in the morning. 0 02/10/2012 Active Comment on above: Take 2 tablets by [facility] once daily. Continuous Blood Gluc [...] Comment on above: Take 1 capsule by [facility] once daily. 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) , Insulin pump status USE TO TEST BLOOD SUGARS 5 TIMES DAILY 1 Each 0 01/01/2022 Active Start: 01-01-2022 End: 01-01-2022 Blood-Glucose Meter,Continuo us (DEXCOM G6 CONSULTANT DIETITIAN) [facility] Indications: 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) , Insulin pump status USE TO TEST BLOOD SUGARS 5 TIMES DAILY 1 Each 0 01/01/2022 01/01/2022 Discontinued Start: 11-08-2021 End: 01-01-2022 Blood-Glucose Meter,Continuo us (DEXCOM G6 CONSULTANT DIETITIAN) [facility] Indications: Type 1 diabetes mellitus with hypoglycemia [...] 06-15-2018 01-28-2023 Chronic Other aftercare (1 source) technician terminal and repeater (current) use of aspirin; Translations: [LONGTERM (CURRENT) USE OF ASPIRIN] Onset: 06-25-2018 Episodic Other aftercare (1 source) [facility] (current) use of insulin; Translations: [DIRECTOR OF STUDENT FINANCIAL AID (CURRENT) USE OF INSULIN] Onset: 06-25-2018 Episodic [...] HEART DIS AND OTH DIS OF THE [facility]] Onset: 06-15-2018 Episodic Unclassified (2 sources) [...] sources) Long-term current use of insulin; Translations: [technician terminal and repeater (current) use of insulin] Onset: 0 Resolved: [...] Test Name Value Interpretation Reference Range Facility [facility] 12-11-2022 CNPN Telephone (ENDOLN) -------- RODRIGUE WALLACE ([id number]) 1950 F Date Time Provider Department 12/11/22 [facility] ENDOLN During your visit today, we recorded the following information about you: Mj Krueger MA 12/11/2022 4:30 PM Signed Received a fax from [employer] requesting C Peptide and Fasting glucose under 225 mg/dl done on the same day and A1C. Printed labs from 01/05/2003 and and printed A1C's from 01/27/13 AND 04/26/22, faxed to [phone]. Confirmation received. Allergies As of Date: 12/11/2022 Noted Allergy Reaction FOSAMAX (ALENDRONATE SODIUM) 11/08/2014 14 - Other: See Comments Comments: Leg cramps, severe MACRODANTIN (NITROFURANTOIN MACRO*05/23/2016 11 - Vomiting PENICILLINS 06/28/2005 9 - Itching Date Reviewed: 04/26/2022 Reviewed by: Araceli Nathan APRN.PROFESSIONAL BASS FISHER - Fully Assessed Reason for Visit: Forms [913] Cmt: [facility] Prescriptions as of 12/11/2022 - amLODIPine (NORVASC) 10 mg tablet - gabapentin (NEURONTIN) 100 mg capsule - NOVOLOG U-100 INSULIN ASPART 100 unit/mL Use via insulin pump, 30 units daily - Blood-Glucose Meter,Continuous (DEXCOM G6 CONSULTANT DIETITIAN) misc USE TO TEST BLOOD SUGARS 5 [...] 02/21/2016 Type 1 diabetes mellitus with hypoglycaemia in*02/21/2016 Bronchitis [J40] 02/21/2016 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] 03/01/2016 Localized primary osteoarthritis of carpometaca*03/01/2016 Family history of colon cancer [Z80.0] 04/18/2017 History of colonic polyps [Z86.010] 04/18/2017 Hiatal hernia [K44.9] 04/15/2019 Encounter Status:Closed by MJ KRUEGER on 12/11/22 [facility] Efrain 12-05-2022 CNPN Telephone (ENDOLN) -------- RODRIGUE WALLACE ([id number]) 1950 F Date Time Provider Department 12/05/22 [facility] ENDOLN During your visit today, we recorded the following information about you: Mj Krueger MA 12/05/2022 4:11 PM Signed Received a fax from [employer] requesting copy of patient labs for C Peptide and fasting glucose. Faxed results, Confirmation received. Allergies As of Date: 12/05/2022 Noted Allergy Reaction FOSAMAX (ALENDRONATE SODIUM) 11/08/2014 14 - Other: See Comments Comments: Leg cramps, severe MACRODANTIN (NITROFURANTOIN MACRO*05/23/2016 11 - Vomiting PENICILLINS 06/28/2005 9 - Itching Date Reviewed: 04/26/2022 Reviewed by: Araceli Nathan APRN.PROFESSIONAL BASS FISHER - Fully Assessed Reason for Visit: Patient Update [1234] Cmt: [facility] Prescriptions as of 12/05/2022 - amLODIPine (NORVASC) 10 mg tablet - gabapentin (NEURONTIN) 100 mg capsule - NOVOLOG U-100 INSULIN ASPART 100 unit/mL Use via insulin pump, 30 units daily - Blood-Glucose Meter,Continuous (DEXCOM G6 CONSULTANT DIETITIAN) misc USE TO TEST BLOOD SUGARS 5 [...] Encounter Status:Closed by MJ KRUEGER on 12/05/22 [facility] 11-06-2022 [facility] Telephone (ENDOLN) -------- RODRIGUE WALLACE ([id number]) 1950 F Date Time Provider Department 11/06/22 [facility] ENDOLN During your visit today, we recorded the following information about you: Mj Krueger MA 11/06/2022 1:49 PM Signed Received a form from [facility] for CGM and Pump supplies. Requesting [...] Date Reviewed: 04/26/2022 Reviewed by: Araceli Nathan APRN.PROFESSIONAL BASS FISHER - Fully Assessed Reason for Visit: Forms [136] Cmt: [facility] Prescriptions as of 11/06/2022 - amLODIPine (NORVASC) 10 mg tablet - gabapentin (NEURONTIN) 100 mg capsule - NOVOLOG U-100 INSULIN ASPART 100 unit/mL Use via insulin pump, 30 units daily - Blood-Glucose Meter,Continuous (DEXCOM G6 CONSULTANT DIETITIAN) misc USE TO TEST BLOOD SUGARS 5 [...] Status:Closed by MJ KRUEGER on 11/06/22 Normal [facility] LIPID PROFILEon 09-20-2022 CHOL-HDL RATIO NORM SEE BELOW Normal [facility] Comment on above: Result Comment: 3.3 - 4.4 LOW RISK 4.4 - 7.1 AVERAGE RISK 7.1 - 11.0 MODERATE RISK >11.0 HIGH RISK Performed By: #### L IPID #### [facility] [place] [facility] [address] [address] [address] Vera Leggett Cholesterol [Mass/Vol] 152 mg/dL Normal <=200 [facility] Comment on above: Performed By: #### L IPID #### [facility] [place] [facility] [address] [address] [address] Vera Leggett Cholesterol in HDL [Mass/Vol] 104 mg/dL Critically high 40-60 The [facility] [place] Comment on above: Performed By: #### L IPID #### [facility] [place] [facility] [address] [address] [address] Vera Leggett Cholesterol in LDL [Mass/Vol] 34.4 mg/dL Normal [facility] Comment on above: Performed By: #### L IPID #### [facility] [place] [facility] [address] [address] [address] Vera Leggett Cholesterol.total/ Cholesterol in HDL [Mass ratio] 1.5 {ratio} Normal [facility] Comment on above: Performed By: #### L IPID #### [facility] [place] [facility] [address] [address] [address] Vera Leggett HDL NORMAL > or = 60 mg/dl - LO W CARDIOVASCULAR RISK <40 mg/dl - HIGH CARDIOVASCULAR RISK Normal [facility] Comment on above: Performed By: #### L IPID #### [facility] [place] [facility] [address] [address] [address] Vera Leggett LDL CALC NORMAL SEE BELOW Normal [facility] Comment on above: Result Comment: <100 mg/dl OPTIMAL 100 - 129 mg/dl NEAR OR ABOVE OPTIMAL 130 - 159 mg/dl BORDERLINE HIGH 160 - 189 mg/dl HIGH >190 mg/dl VERY HIGH Performed By: #### L IPID #### [facility] [place] [facility] [address] [address] [address] Vera Leggett Triglyceride [Mass/Vol] 68 mg/dL Normal <=150 [facility] Comment on above: Performed By: #### L IPID #### [facility] [place] [facility] [address] [address] [address] Vera Leggett VLDL CALC 13.6 mg/dL Normal [facility] Comment on above: Performed By: #### L IPID #### [facility] [place] [facility] [address] [address] [address] Vera Zuniga 07-04-2022 [place] Telephone (ENDOLN) -------- RODRIGUE WALLACE ([id number]) 1950 F Date Time Provider Department 07/04/22 [facility] During your visit today, we recorded the following information about you: Mj Krueger MA 07/04/2022 1:22 PM Signed Received a fax from [facility] requesting last 2 office notes. Faxed notes from 09/26/21 and 04/26/22 to [phone]. Confirmation received. Allergies As of Date: 07/04/2022 Noted Allergy Reaction FOSAMAX (ALENDRONATE SODIUM) 11/08/2014 14 - Other: See Comments Comments: Leg cramps, severe MACRODANTIN (NITROFURANTOIN MACRO*05/23/2016 11 - Vomiting PENICILLINS 06/28/2005 9 - Itching Date Reviewed: 04/26/2022 Reviewed by: Araceli Nathan APRN.PROFESSIONAL BASS FISHER - Fully Assessed Reason for Visit: Patient Update [1234] Cmt: [facility] Prescriptions as of 07/10/2022 - amLODIPine (NORVASC) 10 mg tablet - gabapentin (NEURONTIN) 100 mg capsule - NOVOLOG U-100 INSULIN ASPART 100 unit/mL Use via insulin pump, 30 units daily - Blood-Glucose Meter,Continuous (DEXCOM G6 CONSULTANT DIETITIAN) misc USE TO TEST BLOOD SUGARS 5 [...] Status:Closed by MJ KRUEGER on 07/10/22 Normal [facility] CNOVon 04-26-2022 CNOV Office Visit (ENDOLN ) -------- RODRIGUE WALLACE ([id number]) 1950 F Date Time Provider Department 04/26/22 [...] followed by Dr. Hunter and I. At [facility] we increased carb ratio as she was [...] CGM Findings: Dates worn: 04/13/2022-04/26/2022 CGM Type: Darudar 1- CGM recording is adequate for interpretation. [...] Medication Sig - Blood-Glucose Meter,Continuous (DEXCOM G6 CONSULTANT DIETITIAN) misc USE TO TEST BLOOD SUGARS 5 TIMES DAILY - Blood-Glucose Sensor (Performance Horizon GroupCOM G6 SENSOR) shayy USE TO TEST BLOOD [...] - Subcutaneous Insulin Pump (PARADIGM INSULIN PUMP) [facility] 523 Basal: 24:00- 00.35. 300-0.55; 0700-0.75 2300-0.375. [...] in t (more content not included)... Normal [facility] CT HEAD WO CONon 03-19-2022 [...] by: TRUE COELLO Date: 2022-03-19 16:05 Normal [facility] US CAROTID ART BILon 03-19-2 022 US [...] by: JERAMY REYNA Date: 2022-03-19 17:01 Normal [facility] CNOVon 01-01-2022 CNOV Office Visit (ENDOLN ) -------- RODRIGUE AWLLACE ([id number]) 1950 F Date Time Provider Department 01/01/22 1:00 PM ARACELI NATHAN During your visit today, we recorded the following information about you: Pulse Blood pressure Weight 80/minute 114/74 69.9 kg Araceli Nathan APRN.PROFESSIONAL BASS FISHER 01/01/2022 2:03 PM Signed 71yo WF with [...] Medication Sig - Blood-Glucose Meter,Continuous (DEXCOM G6 CONSULTANT DIETITIAN) misc USE TO TEST BLOOD SUGARS 5 TIMES DAILY - Blood-Glucose Sensor (DEXCOM G6 SENSOR) shayy USE TO TEST BLOOD SUGARS 5 TIMES DAILY - Blood-Glucose Transmitter (DEXCOM G6 TRANSMITTER) shayy USE TO TEST BLOOD SUGARS 5 TIMES DAILY - blood sugar diagnostic ([employer] NEXT TEST STRIPS) test strip USE TO [...] - Subcutaneous Insulin Pump (PARADIGM INSULIN PUMP) [facility] 523 Basal: 24:00- 00.35. 300-0.55; 0700-0.75 2300-0.375. [...] Tab Hai (more content not included)... Normal [facility] Efrain 01-01-2022 RHEAN Telephone (ENDOLN) -------- RODRIGUE WALLACE ([id number]) 1950 F Date Time Provider Department 01/01/22 ARACELI NATHAN ENDOLN During your visit today, we recorded the following information about you: Mj Krueger MA 01/01/2022 1:42 PM Signed Call placed to [facility] to inquire for a form for Dexcom G6. [facility] states we can fax a prescription to : [phone] and they will send us what form is needed. Araceli Nathan APRN.PROFESSIONAL BASS FISHER 01/01/2022 1:52 PM Signed Rx printed. Please fax and give patient a call to let her know we are sending this. Araceli Nathan APRN.PROFESSIONAL BASS FISHER 01/01/2022 1:54 PM Signed Addended by: ARACELI [...] pump status [Z96.41] Order(s):Blood-Glucose Meter,Continuous (DEXCOM G6 CONSULTANT DIETITIAN) miscUSE TO TEST BLOOD SUGARS 5 TIMES [...] units daily - Blood-Glucose Meter,Continuous (DEXCOM G6 CONSULTANT DIETITIAN) misc USE TO TEST BLOOD SUGARS 5 [...] Alkaline ref (more content not included)... Normal [facility] Q - CULTURE,URINE,ROUTINEon 11-13-2021 CULTURE, URINE, ROUTINE SEE NOTE Normal [facility] Comment on above: Order Comment: [facility] Testing performed at: QPT, [facility], [address] [place] [address], [address] [place] [address], [phone], Ticketing Agent: Félix Elder MD [facility] Collection Date/Time: [facility] Results Received Date/Time: [facility] Reported Date/Time: FASTING: UNKNOWN Result Comment: CULT URE, URINE, ROUTINE Micro Number: [id number] Test Status: Final Specimen Source: Urine Specimen Quality: Adequate Result: No Growth Performed By: #### 6 [id number] #### [facility] Default [address] [place] [address] LUMBAR SPINE 2 OR 3 VIEWSon 07-19-2021 LUMBAR SPINE 2 OR 3 VIEWS STUDY: LUMBAR SPINE 2 OR 3 VIEWS; 07/19/2021 12:04 pm INDICATION: PAIN. COMPARISON: None. ACCESSION NUMBER(S): [id number] ORDERING CLINICIAN: Katey Clark FINDINGS: Metallic interbody graft at L5-S1. Mild compression fractures at L1 and L2. Moderate compression fracture at L4. No spondylolisthesis. Multilevel facet arthropathy. IMPRESSION: Age-indeterminate compression fractures at L1, L2, and L4. Degenerative changes. L5-S1 fusion. Normal [facility] HISTORY PHYSICALon 9 HISTORY PHYSICAL HNO ID: [id number] Author: Haven Nixon ([facility]) BARBARA Bagley Service: ? Author Type: Physician Furniture Assembler Type: HANDP Filed: 04/15/2019 8:46 AM Note [...] DAY Subcutaneous Insulin Pump (PARADIGM INSULIN PUMP) [facility] 523 Basal: 24:00- 00.35. 300-0.55; 0700-0.75 2300-0.375. [...] April 15, 2019 TIME: 8:45 AM PAGER: [phone] [facility] NURSING PROGon 04-15-2019 NURSING PROG HNO ID: [id number] Author: Lita BeachRn) Lux RN Service: Nursing Author Type: Registered Nurse Type: Nursing Progress Note Filed: 04/15/2019 8:15 AM Note Text: PRE OP LEARNING ASSESSMENT PROCEDURE/SURGERY: EGD READINESS TO LEARN COGNITIVE ABILITY: Alert and oriented MOTIVATION TO LEARN: Eager FAMILY SUPPORT: None - Unavailable/disintereste d PATIENT LEARNS BEST BY: Individual Instruction FACTORS AFFECTING LEARNING: None PHYSICAL LIMITATIONS AFFECTING LEARNING: None [facility] PT EDon 04-15-2019 PT ED HNO ID: [id number] Author: Priya Bateman RN Service: Nursing Author [...] By: Priya Bateman RN In Department: PROCEDURES [facility] 03-12-2019 ALLIED HEALTH HNO ID: [id number] Author: Darcie Travis (RtJess Salgado Service: Radiology Author Type: Verification Manager Type: Allied Health Filed: 03/12/2019 7:59 AM [...] RT Tomás March 12, 2019 7:59 AM [facility] XR UPPER GI DOUBLE CONTRAST/ AIRon [...] Moderate size hiatal hernia and gastroesophageal reflux. Spray Operator: PSCSandeep Transcribe Date/Time: Mar 12 2019 8:31A Dictated by : SHIRLEY LOPEZ MD This examination was interpreted and the report reviewed and electronically signed by: SHIRLEY LOPEZ MD on Mar 12 2019 8:34AM EST [id number] [facility] NM GASTRIC EMPTYING SOLIDon 03-10-2019 NM GASTRIC EMPTYING SOLID * * *Final Report* * * DATE OF EXAM: Mar 10 2019 10:55AM [facility] 0017 - [place] GASTRIC EMPTYING SOLID / PROCEDURE REASON: Dyspepsia [...] RATE OF GASTRIC EMPTYING OF SOLID MEAL. Spray Operator: PSCB Transcribe Date/Time: Mar 10 2019 11:39A Dictated by : KIMBERLY BILLS MD This examination was interpreted and the report reviewed and electronically signed by: KIMBERLY BILLS MD on Mar 10 2019 11:43AM EST [id number] [facility] PROGRESSon 03-10-2019 PROGRESS HNO ID: [id number] Author: Jess Sagastume (Rt) Service: Radiology Author Type: Verification Manager Type: Progress Notes Filed: 03/10/2019 8:45 AM [...] 08:28 PATIENT DISCHARGED TO: Ambulatory patient, left [place] department area. A Diagnostic radioactive procedure has taken place, with no further precautions necessary other than routine body substance precautions. More information regarding radiation safety can be found using this link: [email or web address] ion [email or web address] [email or web address] [email or web address] SIGNATURE: RT Tanika (N0, RN NEUROLOGY PATIENT NAME: Rodrigue Wallace DATE: March 10, 2019 TIME: 7:59 AM PAGER/CONTACT #: [facility] HOSP 03-03-2019 HOSP Patient:Nubia Wallace MRN: Height:5' [...] for the following basenames: K,HCT Progress Notes ([facility] REJ): Anju Lyman MA, MA 04/01/2019 1:09 PM Signed Dear Miranda Powell This is in regards to our mutual patient Rodrigue Wallace who is scheduled for an EGD on 04/15/19. Dr. Cristobal is requesting pre procedure Diabetes medication recommendations. Please advise and route message to: Adrian MILLER CORS/URI NURSE [id number] Anju Lyman MA, MA 04/01/2019 1:09 PM Signed EGD PREP INSTRUCTIONS 1 WEEK PRIOR TO PROCEDURE: *Please contact our office if you are diabetic, or you take any blood thinners. (ie. Plavix, Coumadin, Xarelto, Pradaxa, Eliquis) DAY BEFORE PROCEDURE: *You should receive a call from the [facility] with your arrival time between 12pm - 3pm. *If your arrival time is before noon, then NO SOLID FOODS OR LIQUIDS after midnight. *If your arrival time is afternoon, you may continue a clear liquid diet up to 3 hours prior to your arrival time. PROCEDURE DAY: *Make sure you have a responsible moving van driver to bring you and take you home from the procedure. *Bring your Photo ID and Insurance Cards with you. If you have any questions or problems, please call our office at [phone] and ask for GI Prep Line. Miranda [...] no further questions or concerns. Progress Notes ([facility] REJ): Elvia Jolly Pss 03/29/2019 12:35 PM [...] sent yet. She can be reached at [phone]. Please advise. Sabino Grace LPN 03/29/2019 1:45 PM Signed Procedures AND biopsies faxed with confirmation Pt is aware [facility] Coding Summary.on 08-21-2018 Coding Summary. CODING DATE: 018 FINAL [facility] STATUS: Home (Routine DC) PAYOR: Medicare [...] Brambila CphT Date Saved: 08/21/2018 10:12 am [facility] XR Shoulder Complete Righton 08-20-2018 XR Shoulder [...] Kirk MD Transcribed by: GOKUL Technologist: DAMARIS Rmoo [facility] Cardiovascular Lab Reporton 06-26-2018 Cardiovascular Lab Report [facility] MR #: [id number] of Physician: Dejuan Lauren M.D.Division of Service Date: 06/25/2018Cardiology Birthdate: [birth year]Adult Cardiovascular Room #: [id number] [place], [place] [address]Lggaq Fax Cardiovascular Laboratory ReportFINAL IMPRESSIONS:1. Angiographically nonobstructive [...] pulmonary.4. Follow up with me in the [facility] in the next 3 to 4 weeks.5. Follow up with Dr. Santiago, her family physician as scheduled.PROCEDURES: Right heart catheterization, bilateral selective coronaryangiography, limited femoral angiography, placement of a 6-Bolivian MynxGripclosure device.METHODS: After risks, benefits, and alternatives were explained, writteninformed consent was obtained. The patient was prepped and draped in theusual sterile fashion over the right groin. Using 1% lidocaine solution,local infiltration anesthesia was achieved. Using a modified Seldingertechnique, access to the right common femoral artery and vein was obtainedand 6-Bolivian 11 cm sheath was inserted in each. [...] images, it was elected to conclude theprocedure.A 6-Bolivian MynxGrip closure device was deployed per protocol achievingoptimal hemostasis. Overall, the patient tolerated the procedure well.There were no overt complications. [facility]FINDINGS:Hemod ynamics:1. AO 146/80.2. [...] 06/25/2018/09:04 Yazan/Ayleen Vernon M.D.Date Trans: 06/26/2018 04:33 Yazan/Bharath_JN:[id number] 8cc: Howard Santiago M.D. 3 [facility] [id number] Normal [facility] BASIC METABOLIC PANELon 05-24 Calcium mass conc 8.6 mg/dL Normal 8.6-10.3 [facility] Comment on above: Order Comment: No: D o not add to previous draw Performed By: #### 4 [id number], 10651, 79449, 95367, 04273, 95675 ####[facility] [place] [address], [place] Chloride molar conc 101 mmol/L Normal 98-107 [facility] Comment on above: Order Comment: No: D o not add to previous draw Performed By: #### 4 6413, 39546, 75813, 46440, 97402, 02374 ####[facility] [place] [address], [place] CO2 molar conc 27 mmol/L Normal 21-31 [facility] Comment on above: Order Comment: No: D o not add to previous draw Performed By: #### 4 6413, 73601, 30335, 67385, 50571, 82007 ####[facility] [place] [address], [place] Creatinine mass conc 0.51 mg/dL Low 0.60-1.20 [facility] Comment on above: Order Comment: No: D o not add to previous draw Performed By: #### 4 6413, 79624, 83879, 81274, 75100, 05553 ####[facility] [place] [address], [place] GFR/1.73 sq M predicted among blacks MDRD vol rate/area (S/P/Bld) mL/min/{1.73_m2} Normal >60 [facility] Comment on above: Order Comment: No: D o not add to previous draw Performed By: #### 4 6413, 26270, 14833, 78807, 06642, 46959 ####[facility] [place] [address], [place] GFR/1.73 sq M predicted among non-blacks MDRD vol rate/area (S/P/Bld) mL/min/{1.73_m2} Normal >60 [facility] Comment on above: Order Comment: No: D o not add to previous draw Performed By: #### 4 6413, 57406, 99087, 06916, 47680, 65023 ####[facility] [place] [address], [facility] Glucose mass conc 211 mg/dL High 70-100 [facility] Comment on above: Order Comment: No: D o not add to previous draw Performed By: #### 4 6413, 10382, 94099, 18245, 78198, 88583 ####[facility] [place] [address], [facility] Potassium molar conc 4.0 mmol/L Normal 3.5-5.1 [facility] Comment on above: Order Comment: No: D o not add to previous draw Performed By: #### 4 6413, 60183, 12027, 38993, 33899, 93535 ####[facility] [place] [address], [facility] Sodium molar conc 135 mmol/L Low 136-145 [facility] Comment on above: Order Comment: No: D o not add to previous draw Performed By: #### 4 6413, 23639, 01399, 82946, 08527, 28914 ####[facility] [place] [address], [facility] Urea nitrogen mass conc 4 mg/dL Low 7-25 [facility] Comment on above: Order Comment: No: D o not add to previous draw Performed By: #### 4 6413, 59986, 42826, 68967, 81880, 84001 ####[facility] [place] [address], [place] CBC COMPLETE BLOOD COUNTon 0 06-17-2018 Erythrocyte distribution width Auto Ratio (RBC) 14.7 % Normal 11.5-15.0 [facility] Comment on above: Order Comment: No: D o not add to previous draw Performed By: #### 4 6413, 16317, 92560, 31226, 68516, 86143 ####[facility] Hematocrit Auto Volume Fraction (Bld) 34.4 % Low 36.0-45.0 [facility] Comment on above: Order Comment: No: D o not add to previous draw Performed By: #### 4 6413, 06220, 36784, 62158, 10722, 69600 ####[facility] Hemoglobin mass conc (Bld) 11.0 g/dL Low 12.0-15.0 [facility] Comment on above: Order Comment: No: D o not add to previous draw Performed By: #### 4 6413, 96556, 03267, 10127, 96195, 85626 ####[facility] MCH Auto Entitic mass (RBC) 26.3 pg Low 27.0-33.0 [facility] Comment on above: Order Comment: No: D o not add to previous draw Performed By: #### 4 6413, 63548, 72715, 63358, 74901, 65987 ####[facility] [facility].[address] MCHC Auto mass conc (RBC) 32.0 g/dL Normal 32.0-35.0 [facility] Comment on above: Order Comment: No: D o not add to previous draw Performed By: #### 4 6413, 00662, 92358, 51775, 04420, 29441 ####[facility] MCV Auto Entitic volume (RBC) 82.3 fL Normal 82.0-98.0 [facility] Comment on above: Order Comment: No: D o not add to previous draw Performed By: #### 4 6413, 49773, 74333, 41498, 61275, 96164 ####[facility] Nucleated RBC/100 WBC Ratio (Bld) 0 % Normal 0-0 [facility] Comment on above: Order Comment: No: D o not add to previous draw Performed By: #### 4 6413, 31748, 72257, 17830, 76364, 60627 ####[facility] PLAT CNT 301 10*3/uL Normal 150-[address] [facility] Comment on above: Order Comment: No: D o not add to previous draw Performed By: #### 4 6413, 06672, 30316, 30581, 55524, 26926 ####[facility] [facility].[address] RBC Auto #/vol (Bld) 4.18 10*6/uL Normal 3.80-5.00 [facility] Comment on above: Order Comment: No: D o not add to previous draw Performed By: #### 4 6413, 49884, 69583, 67536, 75984, 19400 ####[facility] [facility].[address] WBC Auto #/vol (Bld) 5.45 10*3/uL Normal 4.00-10.60 [facility] Comment on above: Order Comment: No: D o not add to previous draw Performed By: #### 4 6413, 68713, 66719, 03662, 63036, 50788 ####[facility] [facility] MAGNESIUM BLOODon 06-17-2018 Magnesium mass conc 1.6 mg/dL Low 1.9-2.7 [facility] Comment on above: Order Comment: No: D o not add to previous draw Performed By: #### 4 6413, 98198, 28676, 64857, 80544, 55305 ####[facility] [place] [address], [facility] POC GLUCOSE LABon 06-17-2018 Glucose mass conc 254 mg/dL High 70-100 [facility] Comment on above: Performed By: #### 4 6413, 81636, 75841, 62296, 85922, 75482 ####[facility] [facility] Glucose mass conc 239 mg/dL High 70-100 [facility] Comment on above: Performed By: #### 4 6413, 04884, 03894, 89454, 63406, 63729 ####[facility] [facility].[address] TROPONIN-Ion 06-17-2018 Troponin I.cardiac mass conc 0.00 ng/mL Normal 0.00-0.04 [facility] Comment on above: Order Comment: No: D o not add to previous draw Result Comment: REFE RENCE RANGES: 0.00 - 0.14 ng/ml NEGATIVE 0.15 - 0.25 ng/ml INDETERMINATE > 0.25 ng/ml INDICATIVE OF AN M.I. Performed By: #### 4 6413, 64034, 75061, 46630, 11228, 42217 ####[facility] [facility].[address] BNP (B-TYPE NATRIURETIC PEPT PRAVEENA)on 06-16-2018 Natriuretic peptide B mass conc (Bld) 54 pg/mL Normal 0-100 [facility] Comment on above: Order Comment: No: D o not add to previous draw Result Comment: Give n the appropriate clinical setting a BNP result of >100 pg/mLindicates congestive heart failure. Performed By: #### 8 5123 ####[facility] [facility] [place] [address], [facility] CBC W/DIFFon 06-16-2018 ABS BASOPHILS 0.0 10*3/uL Normal 0.0-0.2 [facility] Comment on above: Order Comment: No: D o not add to previous draw Performed By: #### 5 0103 ####[facility] ABS IMM GRANS 0.0 10*3/uL Normal 0.0-0.2 [facility] Comment on above: Order Comment: No: D o not add to previous draw Performed By: #### 5 0103 ####[facility] ABS NEUTROPHILS 4.1 10*3/uL Normal 1.6-7.6 [facility] Comment on above: Order Comment: No: D o not add to previous draw Performed By: #### 5 0103 ####[facility] Basophils Auto #/vol (Bld) 0.1 % Normal 0.0-1.0 [facility] Comment on above: Order Comment: No: D o not add to previous draw Performed By: #### 5 0103 ####[facility] Eosinophils Auto #/vol (Bld) 0.0 10*3/uL Normal 0.0-0.5 [facility] Comment on above: Order Comment: No: D o not add to previous draw Performed By: #### 5 0103 ####[facility] Eosinophils/100 WBC Auto (Bld) 0.4 % Normal 0.0-6.0 [facility] Comment on above: Order Comment: No: D o not add to previous draw Performed By: #### 5 3 ####[facility] Erythrocyte distribution width Auto Ratio (RBC) 14.5 % Normal 11.5-15.0 [facility] Comment on above: Order Comment: No: D o not add to previous draw Performed By: #### 5 0103 ####[facility] Hematocrit Auto Volume Fraction (Bld) 33.2 % Low 36.0-45.0 [facility] Comment on above: Order Comment: No: D o not add to previous draw Performed By: #### 5 3 ####[facility] Hemoglobin mass conc (Bld) 10.7 g/dL Low 12.0-15.0 [facility] Comment on above: Order Comment: No: D o not add to previous draw Performed By: #### 5 3 ####[facility] IMMATURE GRANS 0.3 % Normal 0.0-1.0 [facility] Comment on above: Order Comment: No: D o not add to previous draw Performed By: #### 5 3 ####[facility] Lymphocytes Auto #/vol (Bld) 2.7 10*3/uL Normal 1.2-4.0 [facility] Comment on above: Order Comment: No: D o not add to previous draw Performed By: #### 5 3 ####[facility] Lymphocytes/100 WBC Auto (Bld) 36.8 % Normal 20.0-45.0 [facility] Comment on above: Order Comment: No: D o not add to previous draw Performed By: #### 5 3 ####[facility] [place] [address] MCH Auto Entitic mass (RBC) 26.4 pg Low 27.0-33.0 [facility] Comment on above: Order Comment: No: D o not add to previous draw Performed By: #### 5 0103 ####[facility] [facility].[address] MCHC Auto mass conc (RBC) 32.2 g/dL Normal 32.0-35.0 [facility] Comment on above: Order Comment: No: D o not add to previous draw Performed By: #### 5 0103 ####[facility] [facility].[address] MCV Auto Entitic volume (RBC) 82.0 fL Normal 82.0-98.0 [facility] Comment on above: Order Comment: No: D o not add to previous draw Performed By: #### 5 3 ####[facility] [facility].[address] Monocytes Auto #/vol (Bld) 0.5 10*3/uL Normal 0.1-1.0 [facility] Comment on above: Order Comment: No: D o not add to previous draw Performed By: #### 5 3 ####[facility] [facility].[address] MONOS 6.4 % Normal 5.0-12.0 [facility] Comment on above: Order Comment: No: D o not add to previous draw Performed By: #### 5 0103 ####[facility] [facility].[address] Neutrophils/100 WBC Auto (Bld) 56.0 % Normal 40.0-72.0 [facility] Comment on above: Order Comment: No: D o not add to previous draw Performed By: #### 5 0103 ####[facility] [facility].[address] Nucleated RBC/100 WBC Ratio (Bld) 0 % Normal 0-0 [facility] Comment on above: Order Comment: No: D o not add to previous draw Performed By: #### 5 0103 ####[facility] [place] [address], [facility] PLAT CNT 293 10*3/uL Normal 150-[address] [facility] Comment on above: Order Comment: No: D o not add to previous draw Performed By: #### 5 0103 ####[facility] [place] [address], [facility] RBC Auto #/vol (Bld) 4.05 10*6/uL Normal 3.80-5.00 [facility] Comment on above: Order Comment: No: D o not add to previous draw Performed By: #### 5 0103 ####[facility] [place] [address], [facility] WBC Auto #/vol (Bld) 7.30 10*3/uL Normal 4.00-10.60 [facility] Comment on above: Order Comment: No: D o not add to previous draw Performed By: #### 5 0103 ####[facility] COMP METABOLIC PANELon 06-16 Albumin mass conc 3.7 g/dL Normal 3.5-5.7 [facility] Comment on above: Order Comment: No: D o not add to previous draw Performed By: #### 4 6413, 41887, 61109, 00095, 37472, 47027 ####[facility] [place] [address], [facility] ALKALINE PHOSPH 39 IU/L Normal 34-104 The [facility] Comment on above: Order Comment: No: D o not add to previous draw Performed By: #### 4 6413, 95408, 74633, 05356, 81347, 40487 ####[facility] [place] [address], [facility] ALT enzyme act/vol 6 U/L Low 7-[address] [facility] Comment on above: Order Comment: No: D o not add to previous draw Performed By: #### 4 6413, 87371, 83897, 04294, 34298, 79996 ####[facility] [place] [address], [place] AST enzyme act/vol 12 U/L Low 13-[address] [facility] Comment on above: Order Comment: No: D o not add to previous draw Performed By: #### 4 6413, 56249, 40418, 76424, 69202, 01163 ####[facility] [place] [address], [facility] Bilirubin mass conc 0.4 mg/dL Normal 0.3-1.0 [facility] Comment on above: Order Comment: No: D o not add to previous draw Performed By: #### 4 6413, 24515, 95248, 61873, 98134, 11929 ####[facility] [place] [address], [facility] Calcium mass conc 9.1 mg/dL Normal 8.6-10.3 [facility] Comment on above: Order Comment: No: D o not add to previous draw Performed By: #### 4 6413, 99230, 71042, 93652, 00741, 18355 ####[facility] [place] [address], [place] Chloride molar conc 96 mmol/L Low 98-107 [facility] Comment on above: Order Comment: No: D o not add to previous draw Performed By: #### 4 6413, 78504, 52194, 86953, 57011, 56536 ####[facility] [place] [address], [place] CO2 molar conc 23 mmol/L Normal 21-31 [facility] Comment on above: Order Comment: No: D o not add to previous draw Performed By: #### 4 6413, 03817, 87870, 36938, 11277, 13378 ####[facility] [place] [address], [facility] Creatinine mass conc 0.50 mg/dL Low 0.60-1.20 [facility] Comment on above: Order Comment: No: D o not add to previous draw Performed By: #### 4 6413, 01693, 92738, 82393, 46482, 02191 ####[facility] [place] [address], [facility] GFR/1.73 sq M predicted among blacks MDRD vol rate/area (S/P/Bld) mL/min/{1.73_m2} Normal >60 [facility] Comment on above: Order Comment: No: D o not add to previous draw Performed By: #### 4 6413, 53289, 39166, 36118, 30183, 62257 ####[facility] [place] [address], [facility] GFR/1.73 sq M predicted among non-blacks MDRD vol rate/area (S/P/Bld) mL/min/{1.73_m2} Normal >60 [facility] Comment on above: Order Comment: No: D o not add to previous draw Performed By: #### 4 6413, 27837, 14850, 64543, 12713, 52017 ####[facility] [place] [address], [place] Glucose mass conc 269 mg/dL High 70-100 [facility] Comment on above: Order Comment: No: D o not add to previous draw Performed By: #### 4 6413, 98020, 62613, 44486, 18423, 04175 ####[facility] [place] [address], [place] Potassium molar conc 3.8 mmol/L Normal 3.5-5.1 [facility] Comment on above: Order Comment: No: D o not add to previous draw Performed By: #### 4 6413, 08085, 59865, 55677, 44288, 19672 ####[facility] [facility].[address] Protein mass conc 6.4 g/dL Normal 6.0-8.3 [facility] Comment on above: Order Comment: No: D o not add to previous draw Performed By: #### 4 6413, 08883, 41254, 99183, 01133, 36908 ####[facility] [facility] Sodium molar conc 130 mmol/L Low 136-145 [facility] Comment on above: Order Comment: No: D o not add to previous draw Performed By: #### 4 6413, 13932, 39905, 31683, 18995, 53736 ####[facility] [facility].[address] Urea nitrogen mass conc 5 mg/dL Low 7-25 [facility] Comment on above: Order Comment: No: D o not add to previous draw Performed By: #### 4 6413, 72611, 64180, 55030, 84779, 83687 ####[facility] [facility].[address] History and Physicalon 06-16 History and Physical MR#: [id number] Rodrigue Wallace Admitted: 06/15/2018 Date of : 1950 Attending Physician: Nilda Walls M.D. Room #: 3CD [id number] Discharge Date: HISTORY AND PHYSICALThe patient was seen by me on June 15, 2018.CHIEF COMPLAINT: Hypertensive urgency.HISTORY OF PRESENT ILLNESS: The patient is a 68-year-old female with apast medical history of hypertension and diabetes who presented to [facility] asa transfer from [facility]. From the history, we know that the patient wasseen yesterday by her benzene operator there and had high blood pressure in [...] back negative. She was transferred to the [facility].The patient's benzene operator planned to do cardiac cath on her in 3 days hereat [facility] anyway. When I was examining her, [...] DATA: Labs that were done at the [facility] shows white bloodcell 7.6, hemoglobin 11.5, [...] 06/16/2018/12:19 Yazan/Nilda Walls M.D.Date Trans: 06/16/2018 05:38 Yazan/Bharath_JN:[id number] Normal [facility] LIPID PROFILEon 06-16-2018 Cholesterol in HDL mass conc 78 mg/dL Normal 23-92 [facility] Comment on above: Order Comment: No: D o not add to previous draw Result Comment: Slig ht variation in normal range could be due to gender and/or age.HDL CHOLESTEROL REFERENCE RANGE:20 years and older Cardiovascular Risk> or =60 mg/dL Heyyqepca01 TO 59 mg/dL Low Risk<40 mg/dL High Risk Performed By: #### 4 6413, 10588, 33400, 80232, 16975, 23086 ####[facility] [place] [address], [facility] Cholesterol in LDL mass conc 71 mg/dL Normal 0-130 [facility] Comment on above: Order Comment: No: D o not add to previous draw Result Comment: LDL IS A CALCULATIONLDL IS ONLY VALID IF THE TRIG IS LESS THAN 400. Performed By: #### 4 6413, 70446, 93006, 04768, 68547, 97496 ####[facility] [place] [address], [facility] Cholesterol mass conc 167 mg/dL Normal 120-200 [facility] Comment on above: Order Comment: No: D o not add to previous draw Result Comment: CHOL ESTEROL REFERENCE RANGE:20 YEARS AND OLDER CARDIOVASCULAR RISKLess than 200 mg/dl Low Fifb763 to 239 mg/dl Borderline Mlyh268 mg/dl and greater High Risk Performed By: #### 4 6413, 47844, 64841, 83952, 84703, 77390 ####[facility] [place] [address], [facility] Cholesterol.total/ Cholesterol in HDL mass ratio 2.1 {ratio} Normal .0-4.5 [facility] Comment on above: Order Comment: No: D o not add to previous draw Performed By: #### 4 6413, 50538, 51823, 63325, 21378, 59564 ####[facility] NON-HDL CHOLESTEROL 89 mg/dL Normal [facility] Comment on above: Order Comment: No: D o not add to previous draw Performed By: #### 4 6413, 46680, 92159, 35985, 13759, 94280 ####[facility] Triglyceride mass conc 89 mg/dL Normal 40-149 [facility] Comment on above: Order Comment: No: D o not add to previous draw Result Comment: TRIG LYCERIDE REFERENCE RANGE:20 YEARS AND OLDER CARDIOVASCULAR RISKLESS THAN 150 mg/dl LOW [id number] TO 199 mg/dl BORDERLINE [id number] mg/dl AND GREATER HIGH RISK Performed By: #### 4 6413, 69302, 38267, 16491, 98324, 87542 ####[facility] VLDL CHOL 18 mg/dL Normal 0-40 [facility] Comment on above: Order Comment: No: D o not add to previous draw Performed By: #### 4 6413, 04577, 34264, 15724, 43774, 37914 ####[facility] [place] [address], [facility] MAGNESIUM BLOODon 06-16-2018 Magnesium mass conc 1.6 mg/dL Low 1.9-2.7 [facility] Comment on above: Order Comment: No: D o not add to previous draw Performed By: #### 4 6413, 71472, 59268, 54233, 08833, 59356 ####[facility] [place] [address], [facility] PHOSPHORUS BLOODon 8 Phosphate mass conc 3.0 mg/dL Normal 2.5-5.0 [facility] Comment on above: Order Comment: No: D o not add to previous draw Performed By: #### 4 6413, 47736, 64916, 27737, 72197, 65729 ####[facility] [place] [address], [facility] POC GLUCOSE LABon 06-16-2018 Glucose mass conc 118 mg/dL High 70-100 [facility] Comment on above: Performed By: #### 4 6413, 22625, 81798, 65139, 77667, 26866 ####[facility] [place] [address], [facility] Glucose mass conc 225 mg/dL High 70-100 [facility] Comment on above: Performed By: #### 4 6413, 26450, 88142, 94926, 47942, 27824 ####[facility] [place] [address], [place] Glucose mass conc 191 mg/dL High 70-100 [facility] Comment on above: Performed By: #### 4 6413, 78757, 29651, 92991, 58790, 86844 ####[facility] [place] [address], [place] Glucose mass conc 224 mg/dL High 70-100 [facility] Comment on above: Performed By: #### 4 6413, [id number], 44640, 21129, 96422, 45819 ####[facility] [place] [address], [place] TROPONIN-Ion 06-16-2018 Troponin I.cardiac mass conc 0.00 ng/mL Normal 0.00-0.04 [facility] Comment on above: Order Comment: No: D o not add to previous draw Result Comment: REFE RENCE RANGES: 0.00 - 0.14 ng/ml NEGATIVE 0.15 - 0.25 ng/ml INDETERMINATE > 0.25 ng/ml INDICATIVE OF AN M.I. Performed By: #### 4 6413, 03372, 39770, 76425, 70638, 63046 ####[facility] Troponin I.cardiac mass conc 0.00 ng/mL Normal 0.00-0.04 [facility] Comment on above: Order Comment: No: D o not add to previous draw Result Comment: REFE RENCE RANGES: 0.00 - 0.14 ng/ml NEGATIVE 0.15 - 0.25 ng/ml INDETERMINATE > 0.25 ng/ml INDICATIVE OF AN M.I. Performed By: #### 3 [id number] ####[facility] [place] [address], [facility] Troponin I.cardiac mass conc 0.00 ng/mL Normal 0.00-0.04 [facility] Comment on above: Order Comment: No: D o not add to previous draw Result Comment: REFE RENCE RANGES: 0.00 - 0.14 ng/ml NEGATIVE 0.15 - 0.25 ng/ml INDETERMINATE > 0.25 ng/ml INDICATIVE OF AN M.I. Performed By: #### 4 6413, 82735, 01927, 31953, 81556, 19993 ####[facility] TSH3on 06-16-2018 TSH 3RD GENERATION 0.79 uIU/mL Normal 0.34-5.60 [facility] Comment on above: Order Comment: No: D o not add to previous draw Performed By: #### 4 6413, 86387, 14383, 35345, 74979, 99002 ####[facility] URINALYSIS REFLEXon 06-16-20 18 APPEARANCE CLEAR Normal CLEAR [facility] Comment on above: Order Comment: No: D o not add to previous drawCriteria for reflexing a culture was not met. Please call the lab [id number] within 24 hours of collection time if culture is needed Performed By: #### 3 0965 ####[facility] [place] [address], [facility] BILIRUBIN Negative Normal NEGATIVE [facility] Comment on above: Order Comment: No: D o not add to previous drawCriteria for reflexing a culture was not met. Please call the lab [email or web address] within 24 hours of collection time if culture is needed Performed By: #### 3 [id number] ####[facility] [id number], [facility] BLOOD Negative Normal NEGATIVE [facility] Comment on above: Order Comment: No: D o not add to previous drawCriteria for reflexing a culture was not met. Please call the lab [email or web address] within 24 hours of collection time if culture is needed Performed By: #### 3 [id number] ####[facility] [place] [address], [facility] COLOR STRAW Abnormal YELLOW [facility] Comment on above: Order Comment: No: D o not add to previous drawCriteria for reflexing a culture was not met. Please call the lab [id number] within 24 hours of collection time if culture is needed Performed By: #### 3 [id number] ####[facility] [place] [address], [facility] GLUCOSE 150 mg/dL Abnormal NEGATIVE [facility] Comment on above: Order Comment: No: D o not add to previous drawCriteria for reflexing a culture was not met. Please call the lab [email or web address] within 24 hours of collection time if culture is needed Performed By: #### 3 [id number] ####[facility] [place] [address], [facility] KETONE TRACE Abnormal NEGATIVE [facility] Comment on above: Order Comment: No: D o not add to previous drawCriteria for reflexing a culture was not met. Please call the lab [email or web address] within 24 hours of collection time if culture is needed Performed By: #### 3 [id number] ####[facility] [facility] [place] [address], [facility] LEUK LINDA Negative Normal NEGATIVE [facility] Comment on above: Order Comment: No: D o not add to previous drawCriteria for reflexing a culture was not met. Please call the lab [email or web address] within 24 hours of collection time if culture is needed Performed By: #### 3 0965 ####[place] [address] [facility] [place] [address], [facility] MICRO NOT DONE negative chemical reactions unless requested in original order Normal [facility] Comment on above: Order Comment: No: D o not add to previous drawCriteria for reflexing a culture was not met. Please call the lab [email or web address] within 24 hours of collection time if culture is needed Performed By: #### 3 0965 ####[address] [place] [address], [facility] NITRITE Negative Normal NEGATIVE [facility] Comment on above: Order Comment: No: D o not add to previous drawCriteria for reflexing a culture was not met. Please call the lab [id number] within 24 hours of collection time if culture is needed Performed By: #### 3 0965 ####[address] [place] [address], [facility] PH 7.0 Normal 5.0-8.0 [facility] Comment on above: Order Comment: No: D o not add to previous drawCriteria for reflexing a culture was not met. Please call the lab [email or web address] within 24 hours of collection time if culture is needed Performed By: #### 3 0965 ####[address] [place] [address], [facility] Protein mass conc Negative Normal NEGATIVE [facility] Comment on above: Order Comment: No: D o not add to previous drawCriteria for reflexing a culture was not met. Please call the lab [email or web address] within 24 hours of collection time if culture is needed Performed By: #### 3 0965 ####[address] SPEC GRAV 1.004 Low 1.015-1.[address] [facility] Comment on above: Order Comment: No: D o not add to previous drawCriteria for reflexing a culture was not met. Please call the lab [email or web address] within 24 hours of collection time if culture is needed Performed By: #### 3 0965 ####[place] [address] [address] Vital Signs Date Time Vital Sign Value Performing Clinician Faci lity 01-19-2024 10:37-0400 Body height 160 cm Amparo Martinez APRN.PROFESSIONAL BASS FISHER Work Phone: [facility] 01-19-2024 10:37-0400 Body mass index (BMI) [Ratio] 25.86 kg/m2 Amparo Martinez APRN.PROFESSIONAL BASS FISHER Work Phone: [facility] 01-19-2024 10:37-0400 Body weight 66.22 kg Amparo Martinez APRN.PROFESSIONAL BASS FISHER Work Phone: [facility] 01-19-2024 10:37-0400 Diastolic blood pressure 74 mm[Hg] Amparo Martinez APRN.PROFESSIONAL BASS FISHER Work Phone: [facility] 01-19-2024 10:37-0400 Heart rate 75 /min Amparo Martinez APRN.PROFESSIONAL BASS FISHER Work Phone: [facility] 01-19-2024 10:37-0400 Systolic blood pressure 129 mm[Hg] Amparo Martinez APRN.PROFESSIONAL BASS FISHER Work Phone: [facility] 04-26-2022 09:46-0400 Body height 160 cm Araceli Nathan APRN.PROFESSIONAL BASS FISHER Work Phone: [facility] 04-26-2022 09:46-0400 Body weight 72.12 kg Araceli Nathan APRN.PROFESSIONAL BASS FISHER Work Phone: [facility] 04-26-2022 09:46-0400 Diastolic blood pressure 84 mm[Hg] Araceli Nathan GLOBAL CLIMATE CHANGE RESEARCHER.PROFESSIONAL BASS FISHER Work Phone: [facility] 04-26-2022 09:46-0400 Heart rate 74 /min Araceli Nathan APRN.PROFESSIONAL BASS FISHER Work Phone: [facility] 04-26-2022 09:46-0400 Systolic blood pressure 126 mm[Hg] Araceli Nathan APRN.CNP Work Phone: [facility] Encounters Encounter Date Encounter Type Care Provider Facility Start: 02-18-2024 End: 02-18-2024 ambulatory HOWARD SANTIAGO Not Available Start: 01-19-2024 End: 01-19-2024 Patient encounter procedure Amparo Martinez GLOBAL CLIMATE CHANGE RESEARCHER.PROFESSIONAL BASS FISHER Work Phone: [facility] Comment on [...] Jayashree Friday L PN Work Phone: [facility] Comment on above: Secondary osteoarthr itis, [...] & Supplies) Start: 04-26-2022 End: 04-26-2022 ambulatory ARACLEI KOBE Facility:[facility] Start: 04-26-2022 End: 04-26-2022 Patient encounter procedure Araceli Nathan GLOBAL CLIMATE CHANGE RESEARCHER.PROFESSIONAL BASS FISHER Work Phone: Endocrinology Comment on above: 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); Insulin pump status; Insulin pump titration; MCFP (current) use of insulin (HCC) Start: 03-19-2022 End: 03-20-[address] HOWARD SANTIAGO Facility: Start: 01-01-2022 End: 01-01-2022 ambulatory [facility] Facility:[facility] Start: 01-01-2022 Telephone encounter Araceli conley APRN.PROFESSIONAL BASS FISHER Work Phone: Endocrinology Comment on above: Dexcom Start: 08-20-2018 End: 08-21-2018 Patient encounter procedure HOWARD SANTIAGO Facility:[facility] Start: 06-25-2018 End: 06-26-2018 Patient encounter AYLEEN VERNON Facility:[facility] Start: 06-15-2018 End: 06-17-2018 Evaluation and management of inpatient BRYCEBON AUGUST Facility:[facility] Start: 06-15-2018 End: 06-16-2018 Patient encounter DEFAULT PHYSICIAN Facility:[facility] Start: 06-10-2018 End: 06-11-2018 Patient encounter DEFAULT PHYSICIAN Facility:[facility] Procedures Date Procedure Procedure Detail Performing Clinician Start: 06-30-2017 Colonoscopy Araceli conley GLOBAL CLIMATE CHANGE RESEARCHER.PROFESSIONAL BASS FISHER Work Phone: Start: 05-23-2016 Mammography Araceli conley GLOBAL CLIMATE CHANGE RESEARCHER.PROFESSIONAL BASS FISHER Work Phone: Plan of Treatment Date Care Activity Detail Author Start: 06-30-2027 Screening for malignant neoplasm of colon [facility] Start: 12-30-2024 Hepatitis B surface antibody level LDL Cholesterol [facility] Start: 02-02-2025 Glaucoma screening Diabetes: Retinopathy Screening [facility] Start: 10-09-2024 Urine screening for protein Diabetes: Urine Protein Screening [facility] Start: 07-16-2024 End: 07-16-2024 Patient encounter procedure 07/16/2024 10:20 AM EDT Office Visit [facility] [address] [place] [address] Nakia Steele MD [address] [place] [address] [facility] Start: 07-06-2024 Hemoglobin A1c measurement HbA1C [facility] Start: 02-27-2024 End: 02-27-2024 Patient encounter procedure 02/27/2024 8:00 AM EDT Appointment [facility] [place] [address] [place] [address] Sandy Cristobal I, MD [address] [place] [address] [facility] [place] Start: 01-19-2024 End: 04-19-2024 CELIAC SCREEN WITH REFLEX CELIAC SCREEN WITH REFLEX Lab Routine Iron deficiency anemia, unspecified iron deficiency anemia type Expected: 01/19/2024, Expires: 04/19/2024 [facility] [place] Work Phone: Comment on above: Expected: 01/19/2024, Expires: Start: 01-12-2024 Hemoglobin A1c measurement Diabetes: Hemoglobin A1C [facility] Start: 01-12-2024 End: 01-12-2024 Patient encounter procedure [facility] Start: 09-22-2023 Advance Directive Discussion Advance Directive Discussion [facility] Start: 09-22-2023 Behavioral Health Screening Behavioral Health Screening [facility] Start: 05-23-2023 Covid-19 Vaccine () Covid-19 Vaccine () [facility] Start: 10-27-2022 Hemoglobin A1c/Hemoglobin.total in Blood HBA1C [facility] Start: 09-22-2022 ADVANCE DIRECTIVE DISCUSSION ADVANCE DIRECTIVE DISCUSSION [facility] Start: 09-22-2022 DEPRESSION ASSESSMENT DEPRESSION ASSESSMENT [facility] Start: 07-03-2022 Hemoglobin A1c/Hemoglobin.total in Blood HBA1C [facility] Start: 06-30-2022 Colonoscopy COLONOSCOPY [facility] Start: 06-30-2022 COLORECTAL CANCER SCREENING COLORECTAL CANCER SCREENING [facility] Start: 06-30-2022 Screening for malignant neoplasm of colon [facility] Start: 06-26-2022 End: 08-26-2022 ALBUMIN/CREAT RATIO RND UR ALBUMIN/CREAT RATIO RND UR Lab Routine 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) Expected: 06/26/2022, Expires: 08/26/2022 [facility] Work Phone: Comment on above: Expected: 06/26/2022, Expires: 2 Start: 06-26-2022 End: 08-26-2022 Comprehensive metabolic 2000 panel - Serum or Plasma COMP METABOLIC PANEL Lab Routine 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) Expected: 06/26/2022, Expires: 08/26/2022 [facility] Work Phone: Comment on above: Expected: 06/26/2022, Expires: 2 Start: 06-26-2022 End: 08-26-2022 Lipid 1996 panel - Serum or Plasma LIPID PANEL BASIC Lab Routine 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) Expected: 06/26/2022, Expires: 08/26/2022 [facility] Work Phone: Comment on above: Expected: 06/26/2022, Expires: 2 Start: 06-07-2022 Hepatitis B screening URINE ALBUMIN:CREATININE RATIO [facility] Start: 06-07-2022 Hepatitis B surface antibody level LDL CHOLESTEROL [facility] Start: 05-23-2022 Influenza vaccination INFLUENZA (#1) [facility] Start: 04-01-2022 Hemoglobin A1c/Hemoglobin.total in Blood HBA1C [facility] Start: 12-27-2021 COVID-19 VACCINE (4 - Booster for Moderna series) COVID-19 VACCINE (4 - Booster for Moderna series) [facility] Start: 2022 COVID-19 VACCINE (4 - Booster for Moderna series) COVID-19 VACCINE (4 - Booster for Moderna series) [facility] Start: 09-22-2021 ADVANCE DIRECTIVE DISCUSSION ADVANCE DIRECTIVE DISCUSSION [facility] Start: 09-22-2021 DEPRESSION ASSESSMENT DEPRESSION ASSESSMENT [facility] Start: 09-24-2020 Shingrix Vaccine (3 of 3) Shingrix Vaccine (3 of 3) [facility] Start: 08-03-2017 PNEUMOVAX AGE 65 AND OVER WITH 5YR LOOKBACK (#1) PNEUMOVAX AGE 65 AND OVER WITH 5YR LOOKBACK (#1) [facility] Start: 05-23-2017 3 comp foot exam completed DIABETIC FOOT EXAM [facility] Start: 05-23-2017 Diabetic foot examination Diabetic Foot Exam [facility] Start: 05-23-2017 Mammography MAMMOGRAM [facility] Start: 05-23-2017 Screening for malignant neoplasm of breast Mammogram Screening [facility] Start: 02-20-2017 Glaucoma screening Dilated Retinal Exam [facility] Start: 02-20-2017 Hepatitis C antibody, confirmatory test DILATED RETINAL EXAM [facility] Start: 08-03-2013 PNEUMOCOCCAL: 65+ (2 - PCV) PNEUMOCOCCAL: 65+ (2 - PCV) [facility] Start: 10-30-2012 SHINGRIX VACCINE (2 of 3) SHINGRIX VACCINE (2 of 3) [facility] Start: 2011 RSV Vaccine (1 - 1-dose 60+ series) RSV Vaccine (1 - 1-dose 60+ series) [facility] Start: 02-02-1996 COLOGUARD (FIT-DNA) COLOGUARD (FIT-DNA) [facility] Start: 02-02-[address] COLONOGRAPHY [facility] Start: 02-02-1996 FECAL OCCULT BLOOD FECAL OCCULT BLOOD [facility] Start: 02-02-1996 Screening for malignant neoplasm of colon [facility] Start: 02-02-1996 SIGMOIDOSCOPY SIGMOIDOSCOPY [facility] Start: 1991 Screening for malignant neoplasm of breast Mammogram [facility] Start: 1970 Urine microalbumin profile [facility] Start: 1969 ANNUAL PCP TEAM CHRONIC DISEASE VISIT ANNUAL PCP TEAM CHRONIC DISEASE VISIT [facility] Start: 1963 Adult depression screening assessment DEPRESSION SCREENING [facility] Start: 1951 Screening for malignant neoplasm of colon [facility] End: 01-18-2025 EGD DIAGNOSTIC EGD DIAGNOSTIC Endoscopy Routine Iron deficiency anemia, unspecified iron deficiency anemia type Hiatal hernia 1 Occurrences starting 01/19/2024 until 01/18/2025 [facility] Comment on above: 1 Occurrences starting 01/19/2024 until 01/18/2025 Hemoglobin A1c/Hemoglobin.total in Blood HEMOGLOBIN A1C (POC) Lab Routine 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) Ordered: 04/26/2022 [facility] Work Phone: Comment on above: Ordered: 04/26/2022 End: 01-18-2025 Screening colonoscopy COLONOSCOPY SCREENING Endoscopy Routine Iron deficiency anemia, unspecified iron deficiency anemia type Screening for malignant neoplasm of colon 1 Occurrences starting 01/19/2024 until 01/18/2025 [facility] Comment on above: 1 Occurrences starting 01/19/2024 until 01/18/2025 [facility] Immunizations Immunization Date Immunization Notes Care Provider Byron mix 07-23-2023 Influenza, High-dose Seasonal, Quadrivalent, Preservative Free Jayashree Friday HAND MIXER Work Phone: [facility] 08-13-2022 influenza, high dose seasonal, preservative-free Jayashree Friday HAND MIXER Work Phone: [facility] 06-13-2022 Moderna Bivalent Alvarado ster Vaccination Jayashree Friday HAND MIXER Work Phone: [facility] 06-12-2021 influenza, high-dose , quadrivalent vaccine (FLUZONE HIGH DOSE QUADRIVALENT) Araceli Nathan APRN.PROFESSIONAL BASS FISHER Work Phone: [facility] 07-30-2020 zoster vaccine recombinant Jayashree Friday HAND MIXER Work Phone: [facility] 07-18-2020 influenza, high-dose , quadrivalent vaccine (FLUZONE HIGH DOSE QUADRIVALENT) Araceli Nathan APRN.PROFESSIONAL BASS FISHER Work Phone: [facility] 07-20-2019 Influenza, injectabl e, Madin Chen[place] Canine Kidney, quadrivalent with preservative Jayashree Friday HAND MIXER Work Phone: [facility] 07-08-2018 Influenza, High-dose Seasonal, Quadrivalent, Preservative Free Jayashree Friday HAND MIXER Work Phone: [facility] 07-04-2017 pneumococcal polysaccharide vaccine, 23 valent Jayashree Friday HAND MIXER Work Phone: [facility] 06-16-2017 Influenza, High-dose Seasonal, Quadrivalent, Preservative Free Jayashree Friday HAND MIXER Work Phone: [facility] 07-30-2016 influenza, injectabl e, quadrivalent, preservative free Jayashree Friday HAND MIXER Work Phone: [facility] 07-01-2016 influenza, high dose seasonal, preservative-free Araceli Kobe GLOBAL CLIMATE CHANGE RESEARCHER.PROFESSIONAL BASS FISHER Work Phone: [facility] 03-11-2016 pneumococcal conjuga te vaccine, 13 valent Jayashree Friday HAND MIXER Work Phone: [facility] 01-22-2016 pneumococcal conjuga te vaccine, 13 valent Jayashree Friday HAND MIXER Work Phone: [facility] 07-05-2014 seasonal influenza, intradermal, preservative free Jayashree Friday HAND MIXER Work Phone: [facility] 07-23-2013 pneumococcal polysaccharide vaccine, 23 valent Jayashree Friday HAND MIXER Work Phone: [facility] 07-07-2013 zoster vaccine, live Jayashree M HAND MIXER Work Phone: [facility] 09-04-2012 zoster vaccine, live Araceli Kobe GLOBAL CLIMATE CHANGE RESEARCHER.PROFESSIONAL BASS FISHER Work Phone: [facility] 08-03-2012 pneumococcal polysaccharide vaccine, 23 valent Araceli Kobe GLOBAL CLIMATE CHANGE RESEARCHER.PROFESSIONAL BASS FISHER Work Phone: [facility] 06-28-2005 pneumococcal polysaccharide vaccine, 23 valent Araceli Kobe GLOBAL CLIMATE CHANGE RESEARCHER.PROFESSIONAL BASS FISHER Work Phone: [facility] Payers Date Payer Category Payer Private Health Insurance [facility] [employer] [id number] 2015-Present [phone] [address] [place] [address] Indemnity [id number] 2015 Private Health Insurance [id number] 2004 Medicare [id number] 2004 Medicare [id number]. [id number] 1959 Medicare [id number] 1959 Unknown [id number] 1951 Unknown [id number] 2.16.840.1.386521.3.579. 2.647 1951 Unknown [id number] 2.16.840.1.931209.3.579. 2.647 1951 Unknown [id number] 2.16.840.1.139730.3.579. 2.647 1951 Unknown [id number] 2.16.840.1.250910.3.579. 2.647 1951 Unknown [id number] 2.16.840.1.307707.3.579. 2.727 1951 Unknown [id number] 2.16.840.1.726263.3.579. 2.593 1951 Unknown [id number] 2.16.840.1.600292.3.579. 2.593 1951 Unknown [id number] 2.16.840.1.605679.3.579. 2.1259 1951 Unknown [id number] 2.16.840.1.214025.3.579. 2.1259 1951 Unknown [id number] 2.16.840.1.190846.3.579. 2.1259 1951 Unknown [id number] 2.16.840.1.745403.3.579. 2.1259 1951 Unknown [id number] 2.16.840.1.214205.3.579. 2.1259 1951 Unknown [id number] 2.16.840.1.863093.3.579. 2.1259 Medicare [id number] Unknown Social History Date Type Detail Facility Start: 07-29-2011 Tobacco smoking status NHIS Ex-smoker [facility] End: 09-22-2002 History of tobacco use Current smoker [facility] End: 09-22-2002 History of tobacco use Cigarette Smoker [facility] Start: 01-01-2022 End: 01-19-2024 Alcohol intake Current drinker of alcohol (finding) [facility] Start: 1950 Sex Assigned At Female [facility] Start: 12-22-2021 End: 01-01-2022 Exposure to SARS-CoV-2 (event) Not sure [facility] Start: 07-29-2011 End: 01-19-2024 Cigarettes smoked current (pack per day) - Reported 1 [facility] Start: 07-29-2011 End: 02-13-2023 Tobacco use and exposure Smokeless tobacco non-user [facility] Work Phone: Start: 02-13-2023 Tobacco smoking status [facility] Never smoked tobacco [facility] Start: 10-13-2023 Alcohol intake Lifetime non-drinker (finding) [facility] Start: 04-30-2023 End: 01-19-2024 Humiliation, Afraid, Rape, and Kick questionnaire [HARK] [facility] Within the last year , have you been afraid of your partner or ex-partner? No [facility] Do you belong to any clubs or organizations such as amish groups, unions, fraternal or athletic groups, or [...] - these days [OSQ] To some extent [facility] (I/We) worried wheth er (my/our) food would run out before (I/we) got money to buy more. Never true [facility] Start: 01-24-2023 Alcohol Comment Caffeine: Coffee, Intake: 2-3 cups per day [facility] Start: 1950 Sex Assigned At Not on file [facility] Start: 09-17-2021 Gender identity Identifies as female gender (finding) [facility] Start: 09-17-2021 Sexual orientation Heterosexual (finding) [facility] Medical Equipment Procedure Code Equipment Code Equipment Original Text Equipment Identifier Dates [id number] Start: 11-04-2013 Comment on above: One touch ultra blue test strips, insulin pump, iddm, 250.00, tests 5 x daily. Wire Kait .045in Stainless Steel 4in Fixation 2 [place] End - [id number] Start: 11-02-2015 [id number], [id number], [id number], [id number], [id number] Start: 04-10-2021 End: 01-19-2024 Comment on above: USE TO TEST BLOOD PRETTY GARS 5 TIMES DAILY Use as directed four times daily for insulin injections in case of pump failure Dx: E10.649 Use to test blood pretty gar 8 times daily One touch ultra blue test strips, insulin pump, iddm, 250.00, tests 5 x daily. [id number] Start: 11-04-2013 End: 01-19-2024 Clinical Notes 12-18-2009 to 01-19-2024 Amparo Martinez APRN.[facility] - 01/19/2024 11:00 AM EDTTelephone Encounter - [...] Performing Organization Information Site ID: [id number] Name: [facility] Address: [address] [place] [address], [address] [place] [id number] Director: Félix Elder MD Specimen Collected: 01/12/24 10:46 AM Performed by: MONA Last Resulted: 01/13/24 10:49 AM Received From: [facility] Estrogen Gene Test Result Received: 01/19/24 9:59 AM CBC and [...] 0.2 Resulting Agency [facility] Narrative Performed by [facility] FASTING:YES FASTING: YES Resulting Agency Comment Performing Organization Information Site ID: [id number] [facility] Address: [facility] [place] [address] Director: Cristhian Murphy Specimen Collected: 12/31/23 8:39 AM Performed by: [facility] Last Resulted: 01/01/24 6:16 AM Received From: [facility] Result Received: 01/19/24 9:59 AM ASSESSMENT/PLAN: 1. Screening for malignant neoplasm of colon - ICD9: V76.51, ICD10: Z12.11 (primary diagnosis) - Due for screening. Colonoscopy 06/2017 revealed sigmoid diverticulosis, otherwise normal exam. Repeat was recommended in 5 years. [facility] in her sister. - [...] to surgery. - EGD DIAGNOSTIC Amparo Martinez APRN.[facility] [address] [place] [address], [address] [place] [id number] Department: [phone] This note was generated with voice recognition software and may contain errors, including spelling, grammar, syntax and misrecognition of what was dictated, that are not fully corrected. documented in this encounter [facility] 11-05-2023 Telephone encounter Note OARRS reviewed, Rx sent into patient's pharmacy. [facility] 11-05-2023 Miscellaneous Notes OARRS reviewed, Rx sent into patient's pharmacy. documented in this encounter [facility] 12-11-2022 Miscellaneous Notes Received a fax from [employer] requesting C Peptide and Fasting glucose under 225 mg/dl done on the same day and A1C. Printed labs from 01/05/2003 and and printed A1C's from 01/27/13 & 04/26/22, faxed to [phone]. Confirmation received. documented in this encounter [facility] 12-05-2022 Miscellaneous Notes Received a fax from [employer] requesting copy of patient labs for C Peptide and fasting glucose. Faxed results, Confirmation received. documented in this encounter [facility] 11-06-2022 Miscellaneous Notes Received a form from [employer] for CGM and Pump supplies. Requesting last office notes within last 6 months. Printed notes from 04/26/22. Faxed completed form and notes. Confirmation received. documented in this encounter [facility] 07-04-2022 Miscellaneous Notes Received a fax from [facility] requesting last 2 office notes. Faxed notes from 09/26/21 and 04/26/22 to [phone]. Confirmation received. documented in this encounter [facility] 04-26-2022 Note HNO ID: [id number] Author: Araceli Nathan APRN.[employer] Service: ? Author Type: Nurse Practitioner Type: Progress Notes Filed: 04/26/2022 10:30 AM Note Text: 72yo WF with h/o DM1 since age 56, on Medtronic 670G pump in 09/2019, hypoglycemia unawareness, neuropathy, HTN, HLP, osteoporosis, here for f/u, followed by Dr. Hunter and I. At [facility] we increased carb ratio as she was [...] Medication Sig - Blood-Glucose Meter,Continuous (DEXCOM G6 CONSULTANT DIETITIAN) misc USE TO TEST BLOOD SUGARS 5 TIMES DAILY - Blood-Glucose Sensor (Erecruit G6 SENSOR) shayy USE TO TEST BLOOD SUGARS 5 TIMES DAILY - Blood-Glucose Transmitter (Performance Horizon GroupCOM G6 TRANSMITTER) shayy USE TO TEST BLOOD SUGARS 5 TIMES DAILY - blood sugar diagnostic (PreEmptive Solutions NEXT TEST STRIPS) test strip USE TO [...] Take 1 capsu (more content not included)... [facility] 04-26-2022 Instructions Araceli Nathan APRN.[facility] - 04/26/2022 10:13 AM EDT Basal: MN 0.500-->0.425 9a 0.800-->0.700 Noon 0.700 5p 0.650 10p 0.450 Carb MN 18 10a 20 Sensitivity MN 50 Obtain labs Follow up with Dr. Hunter in 2 months documented in this encounter [facility] 04-26-2022 History of Present illness Narrative 72yo WF with h/o DM1 since age 56, on Medtronic 670G pump in 09/2019, hypoglycemia unawareness, neuropathy, HTN, HLP, osteoporosis, here for f/u, followed by Dr. Hunter and I. At [facility] we increased carb ratio as she was [...] Visit Medication Sig Blood-Glucose Meter,Continuous (DEXCOM G6 CONSULTANT DIETITIAN) misc USE TO TEST BLOOD SUGARS 5 TIMES DAILY Blood-Glucose Sensor (DEXCOM G6 SENSOR) shayy USE TO TEST BLOOD SUGARS 5 TIMES DAILY Blood-Glucose Transmitter (DEXCOM G6 TRANSMITTER) shayy USE TO TEST BLOOD SUGARS 5 TIMES DAILY blood sugar diagnostic (CONTOUR NEXT TEST STRIPS) test strip USE TO TEST BLOOD SUGARS 5 TIMES DAILY carisoprodol (SOMA ORAL) Take by mouth. Lancets (PhilanthropediaTOUCH ULTRASOFT LANCETS) lancets Use to test blood [...] daily Subcutaneous Insulin Pump (PARADIGM INSULIN PUMP) [facility] Basal: 24:00- 00.35. 300-0.55; 0700-0.75 2300-0.375. [...] -As above Insulin pump titration -As above technician terminal and repeater (current) use of insulin (HCC) -As above F/u [address] Hunter as scheduled Some elements copied from my note (01/01/2022) which have been updated where appropriate, and all reflect current medical decision making from date of this visit. Araceli Nathan APRN.[facility]HEA documented in this encounter [facility] 01-01-2022 Miscellaneous Notes Prescriptions faxed to [...] inquire for a form for Dexcom G6. [facility] states we can fax a prescription to : [phone] and they will send us what form is needed. documented in this encounter [facility] 01-01-2022 Note HNO ID: [id number] Author: Araceli Nathan APRN.CNP Service: ? Author [...] Medication Sig - Blood-Glucose Meter,Continuous (DEXCOM G6 CONSULTANT DIETITIAN) misc USE TO TEST BLOOD SUGARS 5 [...] - Subcutaneous Insulin Pump (PARADIGM INSULIN PUMP) [facility] Basal: 24:00- 00.35. 300-0.55; 0700-0.75 2300-0.375. [...] daily. No cur (more content not included)... [facility] 12-18-2009 History of Past i llness Narrative Problem Noted Date Resolved Date Diabetes mellitus type 1, un controlled, without complications 12/18/2009 08/23/2016 Type II or unspecified type diabetes mellitus without mention of complication, uncontrolled 07/22/2005 12/18/2009 Type II or unspecified type diabetes mellitus without mention of complication, not stated as uncontrolled 07/22/2005 documented as of this encounter (statuses as of 01/01/2022) [facility] History of Past illness Narrative* Problem Noted Date Resolved Date Diabetes mellitus type 1, un controlled, without complications 12/18/2009 08/23/2016 Type II or unspecified type diabetes mellitus without mention of complication, uncontrolled 07/22/2005 12/18/2009 Type II or unspecified type diabetes mellitus without mention of complication, not stated as uncontrolled 07/22/2005 documented as of this encounter (statuses as of 04/26/2022) [facility] History of Past illness Narrative* Problem Noted Date Resolved Date Diabetes mellitus type 1, un controlled, without complications 12/18/2009 08/23/2016 Type II or unspecified type diabetes mellitus without mention of complication, uncontrolled 07/22/2005 12/18/2009 Type II or unspecified type diabetes mellitus without mention of complication, not stated as uncontrolled 07/22/2005 documented as of this encounter (statuses as of 07/10/2022) [facility] History of Past illness Narrative* Problem Noted Date Resolved Date Diabetes mellitus type 1, un controlled, without complications 12/18/2009 08/23/2016 Type II or unspecified type diabetes mellitus without mention of complication, uncontrolled 07/22/2005 12/18/2009 Type II or unspecified type diabetes mellitus without mention of complication, not stated as uncontrolled 07/22/2005 documented as of this encounter (statuses as of 11/07/2022) [facility] History of Past illness Narrative* Problem Noted Date Resolved Date Diabetes mellitus type 1, un controlled, without complications 12/18/2009 08/23/2016 Type II or unspecified type diabetes mellitus without mention of complication, uncontrolled 07/22/2005 12/18/2009 Type II or unspecified type diabetes mellitus without mention of complication, not stated as uncontrolled 07/22/2005 documented as of this encounter (statuses as of 12/05/2022) [facility] History of Past illness Narrative* Problem Noted Date Resolved Date Diabetes mellitus type 1, un controlled, without complications 12/18/2009 08/23/2016 Type II or unspecified type diabetes mellitus without mention of complication, uncontrolled 07/22/2005 12/18/2009 Type II or unspecified type diabetes mellitus without mention of complication, not stated as uncontrolled 07/22/2005 documented as of this encounter (statuses as of 12/11/2022) [facility] 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) Type I (juvenile type) diabetes mellitus with other specified manifestations, not stated as uncontrolled [facility]ulin pump status [facility] 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)- Primary Type I (juvenile type) diabetes mellitus with other specified manifestations, not stated as uncontrolled Insulin pump status Insulin pump titration Fitting and adjustment of insulin pump MCFP (current) use of insulin (HCC) [facility] Diagnosis Secondary osteoarthritis, right shoulder documented in this encounter [facility]* Diagnosis Screening for malignant neoplasm of colon- Primary Iron deficiency anemia, unspecified iron deficiency anemia type Hiatal hernia Diaphragmatic hernia without mention of obstruction or gangrene Family history of colon cancer Family history of malignant neoplasm of gastrointestinal tract documented in this encounter [facility] for referral (narrative)* Outpatient Procedure (Routine) - Authorized Specialty Diagnoses / Procedures Referred By Contac t Referred To Contact [facility] Diagnoses Iron deficiency anemia, unspecified iron deficiency anemia type Hiatal hernia Procedures EGD DIAGNOSTIC ESOPHAGOGASTRODUODENOSC OPY TRANSORAL DIAGNOSTIC Amparo Martinez APRN.[employer]ESSIONAL [employer] [address] [facility] [address] [place] [address] [place] [id number] Referral ID Status Reason Start Date Expiration Date Visits Requested Visits Authorized [id number] Authorized Auto-Generat ed Referral 01/19/2024 01/18/2025 1 1 * Outpatient Procedure (Routine) - Authorized Specialty Diagnoses / Procedures Referred By Dre guillen Referred To Contact [facility] Diagnoses Iron deficiency anemia, unspecified iron deficiency anemia type Screening for malignant neoplasm of colon Procedures COLONOSCOPY SCREENING COLONOSCOPY FLX DX W/COLLJ SPEC WHEN PFRMD Amparo Martinez APRN.[employer]ESSIONAL [employer]ER [address] [facility] [address] [place] [address] [place] [id number] Referral ID Status Reason Start Date Expiration Date Visits Requested Visits Authorized [id number] Authorized Auto-Generat ed Referral 01/19/2024 01/18/2025 1 1 [facility] Summary Purpose Family History No Family History Records FoundNo Family History Records FoundNo Family History Records FoundNo Family History Records FoundNo Family History Records FoundNo Family History Records FoundNo Family History Records FoundNo Family History Records FoundNo Family History Records Found Advance Directives No Advanced Directives Records FoundDocuments on File Type Date Recorded Patient Pneumatic System Conveyor Operator Expl anation Advance Directive(s) 04/15/2019 8:02 AM Advance Directive(s) 06/30/2017 9:10 AM Advance Directive(s) 03/01/2016 8:02 AM Advance Directive(s) 01/26/2016 7:31 AM Advance Directive(s) 11/02/2015 8:54 AM Advance Directive(s) 11/02/2015 9:04 AM Documents on File Type Date Recorded Patient Pneumatic System Conveyor Operator Expl anation Advance Directive(s) 11/02/2015 8:54 AM Advance Directive(s) 11/02/2015 9:04 AM Documents on File Type Date Recorded Patient Pneumatic System Conveyor Operator Expl anation Advance Directive(s) 11/02/2015 9:04 AM Advance Directive(s) 11/02/2015 8:54 AM Hospital Course Note [id number] Admitted: 06/15/2018 Discharged: 06/17/2018 Date of : 1950 Physician: Bryce August MD DISCHARGE SUMMARYHOSPITAL COURSE: The patient is a 68-year-old female with past medicalhistory significant for newly diagnosed hypertension and diabetes, [facility] from [facility]. The patient was found tohave high blood pressure 230/120 at the Cardiology office from where shewas sent to the [facility] and then transferred to the [facility]. At the timeof this presentation, the [...] section and content) DATE CREATED AUTHOR 08/04/2018 [facility] DATE CREATED AUTHOR AUTHOR'S ORGANIZ ATION 08/31/2018 [facility] DATE CREATED AUTHOR AUTHOR'S ORGANIZ ATION 03/12/2019 [facility] DATE CREATED AUTHOR AUTHOR'S ORGANIZ ATION 04/15/2019 [facility] DATE CREATED AUTHOR AUTHOR'S ORGANIZ ATION 07/27/2021 [facility] DATE CREATED AUTHOR AUTHOR'S ORGANIZ ATION 11/15/2021 [facility] dical Specialist DATE CREATED AUTHOR AUTHOR'S ORGANIZ ATION 09/21/2022 [facility] DATE CREATED AUTHOR AUTHOR'S ORGANIZ ATION 12/12/2022 [facility] DATE CREATED AUTHOR AUTHOR'S ORGANLUCIANO ATION 02/19/2024 [facility] dical Specialists EPIC Source Comments (unrecognize d section and content) In the event this informatio n is protected by the Federal Confidentiality of Alcohol and Drug Abuse Patient Records regulations: The Federal rules restrict any use of the information to criminally investigate or prosecute any alcohol or drug abuse patient.[facility] the event this information is protected by the Federal Confidentiality of Alcohol and Drug Abuse Patient Records regulations: The Federal rules restrict any use of the information to criminally investigate or prosecute any alcohol or drug abuse patient.[facility] the event this information is protected by the Federal Confidentiality of Alcohol and Drug Abuse Patient Records regulations: The Federal rules restrict any use of the information to criminally investigate or prosecute any alcohol or drug abuse patient.[facility] the event this information is protected by the Federal Confidentiality of Alcohol and Drug Abuse Patient Records regulations: The Federal rules restrict any use of the information to criminally investigate or prosecute any alcohol or drug abuse patient.[facility] the event this information is protected by the Federal Confidentiality of Alcohol and Drug Abuse Patient Records regulations: The Federal rules restrict any use of the information to criminally investigate or prosecute any alcohol or drug abuse patient.[facility] the event this information is protected by the Federal Confidentiality of Alcohol and Drug Abuse Patient Records regulations: The Federal rules restrict any use of the information to criminally investigate or prosecute any alcohol or drug abuse patient.[facility] the event this information is protected by the Federal Confidentiality of Alcohol and Drug Abuse Patient Records regulations: The Federal rules restrict any use of the information to criminally investigate or prosecute any alcohol or drug abuse patient.[facility] Reason for Visit (unrecogniz ed section and content) Reason Comments Dexcom Reason Comments Diabetes Reason Comments Patient Update [facility] Reason Comments Forms [employer] Reason Comments Patient Update [facility] Reason Onset Date Comments Med Refill 11/05/2023 Reason Comments Established Patient Colon consult Care Teams (unrecognized sec tion and content) Systems Development Manager Relationship Specialty Start Date End Date Howard Santiago II PCP - General Internal Medicine 06/07/11 Systems Development Manager Relationship Specialty Start Date End Date Howard Santiago II PCP - General Internal Medicine 06/07/11 Systems Development Manager Relationship Specialty Start Date End Date Howard Santiago II PCP - General Internal Medicine 06/07/11 Systems Development Manager Relationship Specialty Start Date End Date Howard Santiago MD [address] [facility] [address] [place] [address] PCP - General Internal Medicine 01/27/23 Howard Santiago MD [address] [facility] [address] [place] [address] PCP - ACO Reach 02/13/23 Systems Development Manager Relationship Specialty Start Date End Date Howard [...] BE BASED ON THE PRIMARY CLINICAL RECORDS. [employer] provides no warranty or guarantee of the accuracy or completeness of information in this document.
[2024-03-05] MEDS: 0.9 % SODIUM CHLORIDE 1,000 ML 100 ML IV (18:03)
[2024-03-05 20:01] LABS: Glucometer 231 mg/dL (74-106)
[2024-03-05] MEDS: ATORVASTATIN CALCIUM 20 MG TABLET PO (21:33)
[2024-03-06 03:26] VITALS: BP 127/66; PULSE 82; TEMP 36.7; O2SAT 96
[2024-03-06] MEDS: 0.9 % SODIUM CHLORIDE 1,000 ML 100 ML IV (03:30)
[2024-03-06 04:43] LABS: Basophils Percent Auto 0.3 % (0.2-2.0); Eosinophils Absolute Auto 0.1 10^3/uL (0.0-0.7); Eosinophils Percent Auto 0.8 % (0.9-7.0); Hematocrit 32.1 % (36.0-48.0); Hemoglobin 10.5 g/dL (12.0-16.0); Immature Granulocytes Abs Auto 0.12 10^3/uL (0.00-0.03); Immature Granulocytes Pct Auto 1.6 % (0.0-0.5); Lymphocytes Absolute Auto 1.6 10^3/uL (1.2-3.8); Lymphocytes Percent Auto 21.9 % (20.5-60.0); Mean Corpuscular HGB Conc 32.7 g/dL (29.9-35.2); Mean Corpuscular Hemoglobin 26.3 pg (26.7-34.0); Mean Corpuscular Volume 80.5 fL (81.0-99.0); Mean Platelet Volume 9.5 fL (9.5-13.5); Monocytes Absolute Auto 0.6 10^3/uL (0.3-0.8); Monocytes Percent Auto 7.7 % (1.7-12.0); Neutrophils Percent Auto 67.7 % (43.0-75.0); Platelet Count 365 10^3/uL (150-450); Red Blood Count 3.99 10^6/uL (4.20-5.40); Red Cell Distribution Width 18.5 % (11.0-15.0); White Blood Count 7.4 10^3/uL (4.0-11.0)
[2024-03-06 04:52] LABS: Anion Gap 12.5; BUN Creatinine Ratio 4.3; Calcium 7.9 mg/dL (8.5-10.1); Carbon Dioxide 28.7 mmol/L (21.0-32.0); Chloride 91 mmol/L (98-107); Estimated GFR (African America >60 (>=60); Estimated GFR (Non-African Ame >60 (>=60); Glucose 267 mg/dL (74-106); Sodium 130 mmol/L (136-145)
[2024-03-06 04:54] LABS: Potassium 2.2 mmol/L (3.5-5.1)
[2024-03-06] MEDS: POTASSIUM CHLORIDE 10 MEQ ER TABLET 40 MEQ PO (05:50)
[2024-03-06] MEDS: OMEPRAZOLE 40 MG CAPSULE.DR PO (05:51)
[2024-03-06 08:03] VITALS: BP 121/68; PULSE 80; TEMP 36.8; O2SAT 94
--- NOTE | 2024-03-06 09:07 | P.HP_ITS ---
HPI H&P: HPI History of Present Illness Chief complaint: LOW BLOOD PRESSURE/ FEVER HYponatremia Narrative: Patient is a 74 y.o female with past medical history of arthritis, HTN, GERD, insulin dep type 2 diabetes, HLD, depression, Diabetic neuropathy, who presented to the ER yesterday with weakness. She was recently treated here for acute diverticulitis and just completed a course of levaquin and flagyl. Patient reports she has only been tolerating liquid diet and is still having diarrhea symptoms. She denies fevers or chills, or abdominal pain. This morning she was able to eat mashed potatoes. She has an insulin pump and she just changed her insulin. She overall has been weak. ER findings, sodium was 121 and potassium was 2.4., CT abdomen/pelvis showed diverticulosis with no acute inflammation Opioid HPI Opioid Management Most Recent Pain and Opioid Data: Last Pain Scale 0 03/06/24 12:27 Last Pain Assessment 03/06/24 12:27 Last ORT Total Score 1 03/05/24 16:35 Last ORT Risk Category Low Risk 03/05/24 16:35 Review of Systems ROS Narrative ROS: a complete review of systems were reviewed with patient and are positive as below or listed in History of Chief Complaint. General: no fever, chills, night sweats Head: no headache, trauma, visual changes, nausea or vomiting Skin: no reported rashes, itching or sores Eyes: no blurriness of vision Ears: no reported hearing loss, vertigo, earache, or tinnitus Throat: no sore throat, hoarseness, swelling of neck, or tongue pain Heart: no chest pain Lungs: no shortness of breath or cough GI: diarrhea no vomiting/nausea Urinary: no urinary urgency, frequency or pain Neuro: no numbness or tingling HEM: no bleeding issues or bruising ENDO: no thyroid problems Psych:depression PFSH FORMERLY [facility], 1928–1983 Medical History (Updated 03/06/24 @ 15:10 by Екатерина Riley DO) Rectal bleed ?K62.5 - Hemorrhage of anus and rectum (ICD-10) Acute diverticulitis ?K57.92 - Diverticulitis of intestine, part unspecified, without perforation or abscess without bleeding (ICD-10) Osteoarthritis ?M19.90 - Unspecified osteoarthritis, unspecified site (ICD-10) COVID ?U07.1 - COVID-19 (ICD-10) GERD (gastroesophageal reflux disease) ?K21.9 - Gastro-esophageal reflux disease without esophagitis (ICD-10) Chronic pain ?G89.29 - Other chronic pain (ICD-10) Depression ?F32.A - Depression, unspecified (ICD-10) Hyperlipidemia ?E78.5 - Hyperlipidemia, unspecified (ICD-10) HTN (hypertension) ?I10 - Essential (primary) hypertension (ICD-10) Diabetes type I ?E10.9 - Type 1 diabetes mellitus without complications (ICD-10) Surgical History H/O discectomy ?Z98.890 - Other specified postprocedural states (ICD-10) H/O: hysterectomy ?Z90.710 - Acquired absence of both cervix and uterus (ICD-10) Family History Father Family history of CHF (congestive heart failure) Family history of COPD (chronic obstructive pulmonary disease) Family history of hypertension Family history of stroke Sister Family history of cancer Family history of diabetes mellitus Brother Family history of cancer Social History Within the past year, how often did you have a drink containing alcohol: never Score interpretation: A score less than 3 is consistent with normal alcohol consumption. Smoking status: Former smoker Non-prescribed substance use: denies use Highest level of school completed/degree received: high school graduate Meds Home Medications and Allergies Home Medications ?Medication ?Instructions ?Recorded ?Confirmed ?Type amlodipine 10 mg tablet 10 mg PO QDAY 09/17/23 03/05/24 History carisoprodol 350 mg tablet 350 mg PO QID PRN muscle pain 09/17/23 03/05/24 History lisinopril 20 mg tablet 20 mg PO QDAY 09/17/23 03/05/24 History novolog insulin pump See Rx Instructions .Route .COMPLEX 09/17/23 03/05/24 History rosuvastatin 5 mg tablet 5 mg PO .QHS 09/17/23 03/05/24 History sertraline 100 mg tablet 100 mg PO QDAY 09/17/23 03/05/24 History aspirin 81 mg tablet,delayed 81 mg PO DAILY 03/05/24 03/05/24 History release cholecalciferol (vitamin D3) 50 50 mcg PO DAILY 03/05/24 03/05/24 History mcg (2,000 unit) capsule (Vitamin D3) coenzyme Q10 30 mg capsule (Co 30 mg PO DAILY 03/05/24 03/05/24 History Q-10) esomeprazole magnesium 40 mg 40 mg PO QDAY 03/05/24 03/05/24 History capsule,delayed release fluconazole 150 mg tablet 150 mg PO Q3D 03/05/24 03/05/24 History fluticasone propionate 50 2 spray intranasal DAILY 03/05/24 03/05/24 History mcg/actuation nasal spray,suspension (Flonase Allergy Relief) ondansetron HCl 4 mg tablet 4 mg PO Q8H PRN nausea and vomiting 03/05/24 03/05/24 History celecoxib 200 mg capsule 200 mg PO DAILY 03/06/24 03/06/24 History gabapentin 100 mg capsule 100 mg PO Q12H 03/06/24 03/06/24 History Allergies Allergy/AdvReac Type Severity Reaction Status Date / Time Penicillins Allergy Verified 02/26/24 08:16 oxycodone AdvReac Intermediate itching Verified 02/26/24 08:16 Exam Narrative Exam Narrative: General: Patient is alert, and oriented to person, place and time with normal affect, proper hygiene Skin: no visible rashes, or ulcers Head: atraumatic, acephalic Eyes: PERRLA, no nystagmus present, conjunctiva clear, no scleral icterus Ears: normal gross auditory acuity Heart: Normal rate and rhythm, no murmurs/rubs/gallops Lungs: no audible wheezes, crackles and normal breath sounds all lung higgins Abdomen: Normal audible bowel sounds, no distension, No palpable masses, no organomegaly, no rebound/guarding/ or rigidity Musculoskeletal: no swelling bilateral lower extremities Neuro: CN II-X grossly intact Constitutional Vital Signs, click to edit/add: Last Vital Signs Temp 98.2 F 03/06/24 08:03 Pulse 80 03/06/24 08:03 Resp 16 03/06/24 08:06 BP 121/68 03/06/24 08:03 Pulse Ox 94 L 03/06/24 08:03 O2 Del Method Room Air 03/06/24 08:03 Results Labs Labs: Short CBC 03/05/24 03/06/24 Range/Units 12:09 04:12 WBC 10.6 7.4 (4.0-11.0) 10^3/uL Hgb 11.8 L 10.5 L (12.0-16.0) g/dL Hct 34.5 L 32.1 L (36.0-48.0) % Plt Count 391 365 (150-450) 10^3/uL BMP 03/05/24 03/06/24 12:09 04:12 Sodium 121 L* 130 L Potassium 2.4 L* 2.2 L* Chloride 78 L* 91 L Carbon Dioxide 24.7 28.7 BUN 5.0 L 3.0 L Creatinine 0.79 0.69 Glucose 284 H 267 H Calcium 8.2 L 7.9 L Urine 03/05/24 Range/Units 12:27 Urine Color Yellow (YELLOW) Urine Clarity Clear (CLEAR) Urine pH 6.0 (5.0-9.0) Ur Specific Bowler >=1.030 A (1.005-1.025) Urine Protein Negative (NEG/TRACE) mg/dL Urine Glucose (UA) Negative (NEGATIVE) mg/dL Assessment and Plan Assessment and Plan (1) Hyponatremia: Assessment and Plan: fluid restriction of 1.5 L, sodium level on recheck was 130, may stop the zoloft if fluid restriction does not help (2) Hypokalemia due to excessive gastrointestinal loss of potassium: Assessment and Plan: stool culture, possible immodium, replace orally and IV (3) GERD (gastroesophageal reflux disease): Assessment and Plan: continue PPI Qualifiers: Esophagitis presence: without esophagitis Qualified Code(s): K21.9 - Gastro-esophageal reflux disease without esophagitis (4) Depression: Assessment and Plan: continue zoloft Qualifiers: Depression Type: major depressive disorder Major depression recurrence: unspecified whether recurrent Active/Remission status: in full remission Qualified Code(s): F32.5 - Major depressive disorder, single episode, in full remission (5) Hyperlipidemia: Assessment and Plan: continue rosuvastatin Qualifiers: Hyperlipidemia type: unspecified Qualified Code(s): E78.5 - Hyperlipidemia, unspecified (6) HTN (hypertension): Assessment and Plan: continue lisinopril Qualifiers: Hypertension type: primary hypertension Qualified Code(s): I10 - Essent ial (primary) hypertension (7) Diabetes type I: Assessment and Plan: continue insulin pump Qualifiers: Diabetes mellitus complication status: without complication Qualified Code(s): E10.9 - Type 1 diabetes mellitus without complications Plan Patient is full code SCD's for DVT prophylaxis Patient is inpatient status and is expected to cross 2 midnights due to her significant electrolyte abnormalities and need to replace/correct and concern for deterioration.
[2024-03-06] MEDS: CHOLECALCIFEROL (VITAMIN D3) 25 MCG/1,000 UNITS TABLET 50 MCG PO (09:45)
[2024-03-06] MEDS: AMLODIPINE BESYLATE 5 MG TABLET 10 MG PO (09:45)
[2024-03-06] MEDS: LISINOPRIL 20 MG TABLET PO (09:45)
[2024-03-06] MEDS: SERTRALINE HCL 100 MG TABLET PO (09:45)
[2024-03-06] MEDS: ASPIRIN 81 MG TABLET.DR PO (09:45)
[2024-03-06] MEDS: FLUTICASONE PROPIONATE 50 MCG NASAL SPRAY 2 SPRAY NS (09:45)
[2024-03-06 11:47] VITALS: BP 123/67; PULSE 88; TEMP 36.9; O2SAT 94
[2024-03-06 13:00] LABS: Anion Gap 8.5; Calcium 8.1 mg/dL (8.5-10.1); Carbon Dioxide 31.2 mmol/L (21.0-32.0); Chloride 93 mmol/L (98-107); Estimated GFR (African America >60 (>=60); Estimated GFR (Non-African Ame >60 (>=60); Glucose 248 mg/dL (74-106); Sodium 130 mmol/L (136-145)
[2024-03-06 13:02] LABS: Potassium 2.7 mmol/L (3.5-5.1)
[2024-03-06 15:45] VITALS: BP 125/76; PULSE 83; TEMP 36.8; O2SAT 93
[2024-03-06] MEDS: POTASSIUM CHLORIDE 40 MEQ in 0.9 % SODIUM CHLORIDE 250 ML 67.5 MEQ IV (15:49)
[2024-03-06 19:20] VITALS: BP 128/75; PULSE 86; TEMP 36.5; O2SAT 93
[2024-03-06 20:17] LABS: Glucometer 241 mg/dL (74-106)
[2024-03-06 20:23] LABS: Anion Gap 7.9; BUN Creatinine Ratio 6.3; Calcium 8.2 mg/dL (8.5-10.1); Carbon Dioxide 29.3 mmol/L (21.0-32.0); Chloride 92 mmol/L (98-107); Estimated GFR (African America >60 (>=60); Estimated GFR (Non-African Ame >60 (>=60); Glucose 245 mg/dL (74-106); Potassium 3.2 mmol/L (3.5-5.1); Sodium 126 mmol/L (136-145)
[2024-03-06] MEDS: POTASSIUM CHLORIDE 10 MEQ ER TABLET 20 MEQ PO (20:58)
[2024-03-06] MEDS: GABAPENTIN 100 MG CAPSULE PO (20:58)
[2024-03-06] MEDS: ATORVASTATIN CALCIUM 20 MG TABLET PO (21:00)
[2024-03-06 23:04] VITALS: BP 146/82; PULSE 83; TEMP 36.9; O2SAT 95
[2024-03-07 04:20] VITALS: BP 155/78; PULSE 94; TEMP 36.6; O2SAT 93
[2024-03-07 04:59] LABS: Hemoglobin 11.3 g/dL (12.0-16.0); Mean Corpuscular HGB Conc 33.2 g/dL (29.9-35.2); Mean Corpuscular Hemoglobin 26.8 pg (26.7-34.0); Mean Corpuscular Volume 80.6 fL (81.0-99.0); Mean Platelet Volume 9.3 fL (9.5-13.5); Platelet Count 369 10^3/uL (150-450); Red Blood Count 4.22 10^6/uL (4.20-5.40); Red Cell Distribution Width 19.1 % (11.0-15.0); White Blood Count 6.9 10^3/uL (4.0-11.0)
[2024-03-07 05:19] LABS: Alanine Aminotransferase 9 U/L (14-59); Albumin Globulin Ratio 0.9; Albumin Level 2.8 g/dL (3.4-5.0); Alkaline Phosphatase 70 U/L (46-116); Anion Gap 6.8; Aspartate Amino Transferase 12 U/L (15-37); BUN Creatinine Ratio 6.1; Bilirubin Total 0.4 mg/dL (0.2-1.0); Calcium 8.1 mg/dL (8.5-10.1); Chloride 95 mmol/L (98-107); Estimated GFR (African America >60 (>=60); Estimated GFR (Non-African Ame >60 (>=60); Glucose 240 mg/dL (74-106); Sodium 133 mmol/L (136-145); Total Protein 5.8 g/dL (6.4-8.2)
[2024-03-07 05:31] LABS: Lymphocytes Absolute Manual 0.89 10^3/uL (1.20-3.80); Monocytes Absolute Manual 0.62 10^3/uL (0.30-0.80); Segmented Neut Absolute Manual 4.76 10^3/uL (1.4-6.5)
[2024-03-07 05:32] LABS: Atypical Lymphocytes Abs Man 0.41; Myelocytes Absolute Manual 0.06; Promyelocytes Absolute Manual 0.13
[2024-03-07 05:33] LABS: Stomatocytes 2+; Target Cells 2+; Toxic Granulation 3+
[2024-03-07 05:40] LABS: Potassium 2.8 mmol/L (3.5-5.1)
[2024-03-07] MEDS: POTASSIUM CHLORIDE 10 MEQ ER TABLET 40 MEQ PO (06:17)
[2024-03-07] MEDS: OMEPRAZOLE 40 MG CAPSULE.DR PO (06:17)
[2024-03-07 07:45] VITALS: BP 151/84; PULSE 83; TEMP 36.8; O2SAT 93
--- NOTE | 2024-03-07 08:13 | PM.PN ---
Progress Note: Subjective Subjective Interval history: Patient had some difficulty getting down her potassium pill this morning and ended up having episode of emesis. Overall has been feeling well up until that occurred. She denies any issues or complaints. was not present today. Discussed keeping her one more day until potassium level in safe range, appetite improved and diarrhea has stopped which she said she finally had normal bowel movement this morning. Exam Narrative Exam Narrative: General: Patient is alert, and oriented to person, place and time with normal affect, proper hygiene Skin: no visible rashes, or ulcers Head: atraumatic, acephalic Eyes: PERRLA, no nystagmus present, conjunctiva clear, no scleral icterus Ears: normal gross auditory acuity Heart: Normal rate and rhythm, no murmurs/rubs/gallops Lungs: no audible wheezes, crackles and normal breath sounds all lung higgins Abdomen: Normal audible bowel sounds, no distension, No palpable masses, no organomegaly, no rebound/guarding/ or rigidity Musculoskeletal: no swelling bilateral lower extremities Neuro: CN II-X grossly intact Constitutional Vital Signs, click to edit/add: Last Vital Signs Temp 98.3 F 03/07/24 07:45 Pulse 83 03/07/24 07:45 Resp 18 03/07/24 07:45 BP 151/84 H 03/07/24 07:45 Pulse Ox 93 L 03/07/24 07:45 O2 Del Method Room Air 03/07/24 07:45 Progress Note: Objective Labs Labs: Short CBC 03/07/24 Range/Units 04:14 WBC 6.9 (4.0-11.0) 10^3/uL Hgb 11.3 L (12.0-16.0) g/dL Hct 34.0 L (36.0-48.0) % Plt Count 369 (150-450) 10^3/uL BMP 03/06/24 03/06/24 03/07/24 12:43 20:07 04:14 Sodium 130 L 126 L 133 L Potassium 2.7 L* 3.2 L 2.8 L* Chloride 93 L 92 L 95 L Carbon Dioxide 31.2 29.3 34.0 H BUN 4.0 L 4.0 L 3.0 L Creatinine 0.67 0.64 0.49 L Glucose 248 H 245 H 240 H Calcium 8.1 L 8.2 L 8.1 L Liver Function 03/07/24 Range/Units 04:14 Total Bilirubin 0.4 (0.2-1.0) mg/dL AST 12 L (15-37) U/L ALT 9 L (14-59) U/L Alkaline Phosphatase 70 (46-116) U/L Albumin 2.8 L (3.4-5.0) g/dL Progress Note: A&P Assessment and Plan (1) Hyponatremia: Assessment and Plan: fluid restriction of 1.5 L, sodium level on recheck was 133 (2) Hypokalemia due to excessive gastrointestinal loss of potassium: Assessment and Plan: stool culture pending, continue Imodium, replace orally and IV, was 2.8, recheck at 1300; appetite is improving and diarrhea has resolved. Hopeful that this will help. (3) GERD (gastroesophageal reflux disease): Assessment and Plan: continue PPI Qualifiers: Esophagitis presence: without esophagitis Qualified Code(s): K21.9 - Gastro-esophageal reflux disease without esophagitis (4) Depression: Assessment and Plan: continue zoloft Qualifiers: Active/Remission status: in full remission Depression Type: major depressive disorder Major depression recurrence: unspecified whether recurrent Qualified Code(s): F32.5 - Major depressive disorder, single episode, in full remission (5) Hyperlipidemia: Assessment and Plan: continue rosuvastatin Qualifiers: Hyperlipidemia type: unspecified Qualified Code(s): E78.5 - Hyperlipidemia, unspecified (6) HTN (hypertension): Assessment and Plan: continue lisinopril Qualifiers: Hypertension type: primary hypertension Qualified Code(s): I10 - Essential (primary) hypertension (7) Diabetes type I: Assessment and Plan: continue insulin pump Qualifiers: Diabetes mellitus complication status: without complication Qualified Code(s): E10.9 - Type 1 diabetes mellitus without complications Plan Patient is full code SCD's for DVT prophylaxis Patient still with severe potassium level, Will require at least 1-2 more days to get levels to a safe/normal level for discharge.
[2024-03-07] MEDS: GABAPENTIN 100 MG CAPSULE PO ×2 (09:01→21:22)
[2024-03-07] MEDS: AMLODIPINE BESYLATE 5 MG TABLET 10 MG PO (09:01)
[2024-03-07] MEDS: LISINOPRIL 20 MG TABLET PO (09:01)
[2024-03-07] MEDS: CHOLECALCIFEROL (VITAMIN D3) 25 MCG/1,000 UNITS TABLET 50 MCG PO (09:01)
[2024-03-07] MEDS: POTASSIUM CHLORIDE 10 MEQ ER TABLET 20 MEQ PO ×3 (09:01→21:22)
[2024-03-07] MEDS: ASPIRIN 81 MG TABLET.DR PO (09:01)
[2024-03-07] MEDS: SERTRALINE HCL 100 MG TABLET PO (09:01)
[2024-03-07] MEDS: FLUTICASONE PROPIONATE 50 MCG NASAL SPRAY 2 SPRAY NS (09:02)
[2024-03-07] MEDS: POTASSIUM CHLORIDE 40 MEQ in 0.9 % SODIUM CHLORIDE 250 ML 67.5 MEQ IV (09:05)
[2024-03-07 14:00] VITALS: BP 117/71; PULSE 88; TEMP 36.9; O2SAT 94
[2024-03-07 16:06] LABS: Anion Gap 4.7; Calcium 8.6 mg/dL (8.5-10.1); Carbon Dioxide 33.3 mmol/L (21.0-32.0); Chloride 92 mmol/L (98-107); Estimated GFR (African America >60 (>=60); Estimated GFR (Non-African Ame >60 (>=60); Glucose 314 mg/dL (74-106); Sodium 126 mmol/L (136-145)
[2024-03-07 20:11] VITALS: BP 143/85; PULSE 81; TEMP 37; O2SAT 93
[2024-03-07 20:33] LABS: Glucometer 351 mg/dL (74-106)
[2024-03-07] MEDS: ATORVASTATIN CALCIUM 20 MG TABLET PO (21:22)
[2024-03-07] MEDS: INSULIN ASPART 300 UNIT/3 ML PEN 15 UNIT SUBQ (22:21)
[2024-03-07 23:27] LABS: Glucometer 212 mg/dL (74-106)
[2024-03-08 04:05] VITALS: BP 129/81; PULSE 79; TEMP 36.6; O2SAT 94
[2024-03-08 05:10] LABS: Basophils Percent Auto 0.5 % (0.2-2.0); Eosinophils Absolute Auto 0.2 10^3/uL (0.0-0.7); Eosinophils Percent Auto 1.9 % (0.9-7.0); Hematocrit 35.7 % (36.0-48.0); Hemoglobin 11.6 g/dL (12.0-16.0); Immature Granulocytes Abs Auto 0.06 10^3/uL (0.00-0.03); Immature Granulocytes Pct Auto 0.7 % (0.0-0.5); Lymphocytes Absolute Auto 2.4 10^3/uL (1.2-3.8); Lymphocytes Percent Auto 29.3 % (20.5-60.0); Mean Corpuscular HGB Conc 32.5 g/dL (29.9-35.2); Mean Corpuscular Hemoglobin 26.8 pg (26.7-34.0); Mean Corpuscular Volume 82.4 fL (81.0-99.0); Mean Platelet Volume 9.6 fL (9.5-13.5); Monocytes Absolute Auto 0.6 10^3/uL (0.3-0.8); Monocytes Percent Auto 7.7 % (1.7-12.0); Neutrophils Absolute Auto 4.8 10^3/uL (1.4-6.5); Neutrophils Percent Auto 59.9 % (43.0-75.0); Platelet Count 370 10^3/uL (150-450); Red Blood Count 4.33 10^6/uL (4.20-5.40); Red Cell Distribution Width 19.3 % (11.0-15.0); White Blood Count 8.1 10^3/uL (4.0-11.0)
[2024-03-08 05:41] LABS: Alanine Aminotransferase 9 U/L (14-59); Albumin Globulin Ratio 0.9; Albumin Level 2.8 g/dL (3.4-5.0); Alkaline Phosphatase 70 U/L (46-116); Anion Gap 7.4; Aspartate Amino Transferase 15 U/L (15-37); BUN Creatinine Ratio 6.5; Bilirubin Total 0.4 mg/dL (0.2-1.0); Calcium 8.5 mg/dL (8.5-10.1); Carbon Dioxide 32.5 mmol/L (21.0-32.0); Chloride 94 mmol/L (98-107); Estimated GFR (African America >60 (>=60); Estimated GFR (Non-African Ame >60 (>=60); Globulin 3.2 g/dL; Glucose 189 mg/dL (74-106); Potassium 3.9 mmol/L (3.5-5.1); Sodium 130 mmol/L (136-145)
[2024-03-08] MEDS: POTASSIUM CHLORIDE 10 MEQ ER TABLET 20 MEQ PO (06:14)
[2024-03-08] MEDS: OMEPRAZOLE 40 MG CAPSULE.DR PO (06:15)
[2024-03-08 07:36] LABS: Glucometer 202 mg/dL (74-106)
--- NOTE | 2024-03-08 08:18 | P.DS_ITS ---
DS: Providers Provider Date of admission: 03/05/24 16:19 Primary care physician: KANDACE SANTIAGO Admitting clinician: Candelario Starr Consults: 03/07/24 17:38 Consult to Dietitian Routine Reason for consultation: colitis and diabetic dietary needs Has provider been notified: No Discharging clinician: Екатерина Riley DS: Diagnosis Discharge Diagnosis (1) Hyponatremia: (2) Hypokalemia due to excessive gastrointestinal loss of potassium: (3) GERD (gastroesophageal reflux disease): Qualifiers: Esophagitis presence: without esophagitis Qualified Code(s): K21.9 - Gastro-esophageal reflux disease without esophagitis (4) Depression: Qualifiers: Active/Remission status: in full remission Depression Type: major depressive disorder Major depression recurrence: unspecified whether recurrent Qualified Code(s): F32.5 - Major depressive disorder, single episode, in full remission (5) Hyperlipidemia: Qualifiers: Hyperlipidemia type: unspecified Qualified Code(s): E78.5 - Hyperlipidemia, unspecified (6) HTN (hypertension): Qualifiers: Hypertension type: primary hypertension Qualified Code(s): I10 - Essential (primary) hypertension (7) Diabetes type I: Qualifiers: Diabetes mellitus complication status: without complication Qualified Code(s): E10.9 - Type 1 diabetes mellitus without complications DS: Summary Hospital Course Hospital Course: Patient is a 74 y.o female with past medical history of arthritis, HTN, GERD, insulin dep type 2 diabetes, HLD, depression, Diabetic neuropathy, who presented to the ER with weakness. She was recently treated here for acute diverticulitis and just completed a course of levaquin and flagyl. Patient reports she has only been tolerating liquid diet and is still having diarrhea symptoms. She denies fevers or chills, or abdominal pain. ER findings, sodium was 121 and potassium was 2.4., CT abdomen/pelvis showed diverticulosis with no acute inflammation. For her hyponatremia, fluid restriction of 1.5 L, sodium level on discharge was 130. For her hypokalemia, appetite is improving and diarrhea has resolved, was replaced both IV and orally. At the time of discharge potassium was 3.6. Will continue Klorcon 20mEQ TID until further outpatient evaluation by PCP. Patient will be discharged home today in stable condition and with nutrition consult on home diet given diabetic and recent colitis. She has close follow up with her pcp to recheck electrolytes later this week. She may return to the ER with any worsening signs or symptoms. Status at Discharge Functional status at discharge: independent ambulation Overall status at discharge: patient is progressing back to baseline Time Spent with Patient Time attestation: Total time spent providing and/or coordinating discharge services: Time spent: greater than 30 minutes Exam Narrative Exam Narrative: General: Patient is alert, and oriented to person, place and time with normal affect, proper hygiene Skin: no visible rashes, or ulcers Head: atraumatic, acephalic Eyes: PERRLA, no nystagmus present, conjunctiva clear, no scleral icterus Ears: normal gross auditory acuity Heart: Normal rate and rhythm, no murmurs/rubs/gallops Lungs: no audible wheezes, crackles and normal breath sounds all lung higgins Abdomen: Normal audible bowel sounds, no distension, No palpable masses, no organomegaly, no rebound/guarding/ or rigidity Musculoskeletal: no swelling bilateral lower extremities Neuro: CN II-X grossly intact Constitutional Vital Signs, click to edit/add: Last Vital Signs Temp 97.9 F 03/08/24 04:05 Pulse 79 03/08/24 04:05 Resp 18 03/08/24 04:05 BP 129/81 03/08/24 04:05 Pulse Ox 94 L 03/08/24 04:05 O2 Del Method Room Air 03/08/24 04:05 DS: Data Data Completed and Pending Labs on day of discharge: Labs from last 24 hours 03/08/24 03/08/24 03/07/24 07:35 04:30 23:26 WBC 8.1 RBC 4.33 Hgb 11.6 L Hct 35.7 L MCV 82.4 MCH 26.8 MCHC 32.5 RDW 19.3 H Plt Count 370 MPV 9.6 Neut % (Auto) 59.9 Lymph % (Auto) 29.3 [place] % (Auto) 7.7 Eos % (Auto) 1.9 Baso % (Auto) 0.5 Neut # (Auto) 4.8 Lymph # (Auto) 2.4 [place] # (Auto) 0.6 Eos # (Auto) 0.2 Baso # (Auto) 0.0 Abs Immat Gran (auto) 0.06 H Imm/Tot Granulo (auto) 0.7 H Sodium 130 L Potassium 3.9 Chloride 94 L Carbon Dioxide 32.5 H Anion Gap 7.4 BUN 3.0 L Creatinine 0.46 L Est GFR ( Amer) >60 Est GFR (Non-Af Amer) >60 BUN/Creatinine Ratio 6.5 Glucose 189 H Calcium 8.5 Total Bilirubin 0.4 AST 15 ALT 9 L Alkaline Phosphatase 70 Total Protein 6.0 L Albumin 2.8 L Globulin 3.2 Albumin/Globulin Ratio 0.9 POC Glucose 202 H 212 H 03/07/24 03/07/24 20:22 15:40 WBC RBC Hgb Hct MCV MCH MCHC RDW Plt Count MPV Neut % (Auto) Lymph % (Auto) [place] % (Auto) Eos % (Auto) Baso % (Auto) Neut # (Auto) Lymph # (Auto) [place] # (Auto) Eos # (Auto) Baso # (Auto) Abs Immat Gran (auto) Imm/Tot Granulo (auto) Sodium 126 L Potassium 4.0 Chloride 92 L Carbon Dioxide 33.3 H Anion Gap 4.7 BUN 4.0 L Creatinine 0.57 Est GFR ( Amer) >60 Est GFR (Non-Af Amer) >60 BUN/Creatinine Ratio 7.0 Glucose 314 H Calcium 8.6 Total Bilirubin AST ALT Alkaline Phosphatase Total Protein Albumin Globulin Albumin/Globulin Ratio POC Glucose 351 H Discharge Plan Discharge Disposition: Home, Self-Care Condition: Good Discharge Medications: New potassium chloride 10 mEq Tablet,Er Particles/Crystals 20 meq PO TID 14 Days Qty: 84 0RF Continued amlodipine 10 mg tablet 10 mg PO QDAY lisinopril 20 mg tablet 20 mg PO QDAY rosuvastatin 5 mg tablet 5 mg PO .QHS sertraline 100 mg tablet 100 mg PO QDAY carisoprodol 350 mg tablet 350 mg PO QID PRN (Reason: muscle pain) novolog insulin pump See Rx Instructions .ROUTE .COMPLEX Rx Instructions: Patient calculates per carb coverage; ondansetron HCl 4 mg tablet 4 mg PO Q8H PRN (Reason: nausea and vomiting) Rx Instructions: FOR UP TO 13 DAYS aspirin 81 mg tablet,delayed release (DR/EC) 81 mg PO DAILY esomeprazole magnesium 40 mg capsule,delayed release(DR/EC) 40 mg PO QDAY fluconazole 150 mg tablet 150 mg PO Q3D Rx Instructions: X2 DOSES - STOP DATE 03/08/24 fluticasone propionate [Flonase Allergy Relief] 50 mcg/actuation spray ,suspension 2 spray intranasal DAILY Rx Instructions: administer into each nostril cholecalciferol (vitamin D3) [Vitamin D3] 50 mcg (2,000 unit) capsule 50 mcg PO DAILY coenzyme Q10 [Co Q-10] 30 mg capsule 30 mg PO DAILY gabapentin 100 mg capsule 100 mg PO Q12H celecoxib 200 mg capsule 200 mg PO DAILY Activity: increase activity as tolerated Diet: advance to your usual diet Diet Detail: Fluid restriction to 1.5 Liters daily Print Language: Lithuanian Patient Instructions: Dehydration (DC), Hyponatremia (DC), Hyponatremia (GEN), Hypokalemia (DC), Hypokalemia (GEN), Diabetic Hyperglycemia (DC) Forms: Portal Instructions Follow Up Appointments: Follow Up Appt: March 11 at 10:00AM with MARCOS Lopez. Office Office location is at Dr. Santiago's office ([address] [place] [address]) Will need recheck BMP Discharge location: Home
[2024-03-08 08:30] VITALS: BP 133/75; PULSE 79; TEMP 36.3; O2SAT 94
[2024-03-08] MEDS: FLUTICASONE PROPIONATE 50 MCG NASAL SPRAY 2 SPRAY NS (08:34)
[2024-03-08] MEDS: LISINOPRIL 20 MG TABLET PO (08:34)
[2024-03-08] MEDS: SERTRALINE HCL 100 MG TABLET PO (08:34)
[2024-03-08] MEDS: AMLODIPINE BESYLATE 5 MG TABLET 10 MG PO (08:34)
[2024-03-08] MEDS: CHOLECALCIFEROL (VITAMIN D3) 25 MCG/1,000 UNITS TABLET 50 MCG PO (08:34)
[2024-03-08] MEDS: GABAPENTIN 100 MG CAPSULE PO (08:34)
[2024-03-08] MEDS: ASPIRIN 81 MG TABLET.DR PO (08:34)
[2024-03-08 11:06] LABS: Glucometer 333 mg/dL (74-106)
--- NOTE | 2024-03-08 11:32 | CM.NOTE ---
Rounds made with Dr. Riley. Plan for discharge later today after discussion with [employer]ider regarding Diabetic diet and diet for colitis.
[2024-03-08 11:43] VITALS: BMI 26.1
--- NOTE | 2024-03-08 11:59 | SWNOTE1 ---
Important Message from Medicare reviewed and discussed with patient. Pt. verbalized understanding and signed the form. Original given to patient and copy placed in patient?s chart. Pt voiced no needs and is sitting on the couch eating lunch, independent at home.
--- NOTE | 2024-03-09 15:05 | CM.DCFOLLOWU ---
Person spoke with: Ana How are you feeling? pretty good, still a bit weak. How is your pain? No pain Did you understand your discharge instructions? yes Do you have any questions about your discharge instructions? No Were you given any prescriptions at discharge? Yes Were you able to get your prescriptions filled? yes Do you understand how to take your medications as ordered? yes Do you have any questions about your follow up appointment and do you plan to keep your follow up appointment? Yes, March 11, 2024. Is there anything else that you would like to discuss? no Questions/Comments/Concerns/Other:
== END 2024-03-08 12:30 | disposition home or self-care (01) | DRG 641 ==
LOC: ER 15:07 → MS 16:35
PROVIDERS: Family Medicine; Registered Nurse; Admitting Provider Family Medicine; Emergency Provider Emergency Medicine; PCP Internal Medicine; Visit Provider Family Medicine
DX: E87.1 Hypo-osmolality and hyponatremia (principal); E44.0 Moderate protein-calorie malnutrition; E87.6 Hypokalemia; E11.40 Type 2 diabetes mellitus with diabetic neuropathy, unspecified; K21.9 Gastro-esophageal reflux disease without esophagitis; F32.5 Major depressive disorder, single episode, in full remission; E78.5 Hyperlipidemia, unspecified; I10 Essential (primary) hypertension; Z79.899 Other long term (current) drug therapy; Z90.710 Acquired absence of both cervix and uterus; Z98.890 Other specified postprocedural states; Z87.891 Personal history of nicotine dependence; Z96.41 Presence of insulin pump (external) (internal); Z79.4 Long term (current) use of insulin; Z68.26 Body mass index [BMI] 26.0-26.9, adult
CPT/HCPCS: 36415; 74177; 80048; 80053; 81001; 82948; 83735; 85007; 85025; 85027; 87045; 87046; 87427; 93005; 96365; 96366; 99285; J3480; Q9967

== ENCOUNTER 2024-07-13 08:50 | Outpatient (OUT) | payer MEDICARE, OTHER, SELFPAY ==
--- NOTE | 2024-07-13 | NM_ITS ---
The [address] [address] Patient Name: RODRIGUE WALLACE MRN: [id number] date: 1950 Sex: F Assigned Patient Location: [place] Current Patient Location: [place] Accession/Order Number: [id number] Exam Date: 07/13/2024 08:00 Report Date: 07/13/2024 13:55 At the request of: NON-STAFF PHYSICIAN Procedure: [place] bone scan whole body EXAMINATION: [place] bone scan whole body HISTORY: MALIGNANT NEOPLASM OF SIGMOID COMPARISON: No relevant comparison available. TECHNIQUE: After obtaining the patient's consent, Technetium 99m MDP was injected intravenously. Images were obtained approximately two hours later. FINDINGS: ABNORMALITIES: Increased activity identified within the acromioclavicular and glenohumeral knee and ankles consistent with degenerative change. No increased activity to suggest metastatic disease to the bones OTHER: Negative. [place] bone scan whole body IMPRESSION: No definite evidence of metastatic disease to the bones Electronically authenticated by: JERAMY REYNA Date: 07/13/2024 13:55
--- OUTSIDE RECORDS SUMMARY | 2024-07-13 09:12 | XMS_ITS | CCD ---
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 Name Role Phone PHYSICIAN, DEFAULT Unavailable Unavailable PHYSICIAN, DEFAULT Unavailable Unavailable PHYSICIAN, DEFAULT Unavailable Unavailable PHYSICIAN, DEFAULT Unavailable Unavailable ELTAHAWY, EHAB A Unavailable Unavailable [place]TAHAWY, EHAB A Unavailable Unavailable HOWARD SANTIAGO Unavailable Unavailable HOWARD SANTIAGO Unavailable Unavailable AHMED, BRYCE Unavailable Unavailable AHMED, BRYCE Unavailable Unavailable HOWARD SANTIAGO Unavailable Unavailable HOWARD WALDRON Unavailable Unavailable HOWARD SANTIAGO Unavailable Unavailable HOWARD SANTIAGO Unavailable Unavailable HOWARD SANTIAGO Unavailable Unavailable Howard Santiago II Primary Care Provider [phone] Howard Santiago II Primary Care Provider [phone] HOWARD SANTIAGO Admitting Unavailable JACK, DR JERONIMO Attending Unavailable JACK, DR JERONIMO Primary Care Unavailable JACK, DR JERONIMO Consulting Unavailable AJCK, DR JERONIMO Admitting Unavailable SANTIAGO, DR JERONIMO Attending Unavailable SANTIAGO, DR JERONIMO Primary Care Unavailable JACK, DR JERONIMO Consulting Unavailable PRAIRIE HILL, DR JERAMY Martinez Consulting Unavailable TRUE COELLO Consulting Unavailable Howard Santiago II Primary Care Provider [phone] Howard Santiago MD Primary Care Provider Howard Santiago MD Unavailable [phone] Jack BRADFORD MD, Daniel B Primary Care Provider PAMELA HAMILTON Referring Unavailable HOWARD SANTIAGO II Primary Care Unavailable Pamela Hamilton Referring Unavailable HOWARD SANTIAGO II Primary Care Unavailable SYDNEY CARBAJAL Attending Unavailabl e Pamela Hamilton Referring Unavailable HOWARD SANTIAGO II Primary Care Unavailable Meng SANCHEZ, Janneth Lange Unavailable [phone] George PRADO, Melecio Unavailable Ashlie BEAVER, Janee Tiffani Unavailable JERAMY GARRIDO Attending Unavailable JERAMY GARRIDO Admitting Unavailable JERAMY DSOUZA Consulting Unavailable SATNIAGO II, HOWARD B Primary Care Unavailable SANTIAGO, HOWARD B Attending Unavailable PETZNICK, STEPHANIE M Attending Unavailable PETZNICK, STEPHANIE M Attending Unavailable PETZNICK, STEPHANIE M Attending Unavailable SANTIAGO, HOWARD B Referring Unavailable SANTIAGO, HOWARD B Attending Unavailable SANTIAGO, HOWARD B Attending Unavailable HEMMER, ALAN Nixon Attending Unavailable HEMMER, ALAN Nixon Attending Unavailable PETZNICK, STEPHANIE M Attending Unavailable SANTIAGO, HOWARD B Attending Unavailable SANTIAGO, HOWARD B Attending Unavailable SANTIAGO II, HOWARD B Primary Care Unavailable VENNEPUREDDY, MELECIO Referring Unavailable SANTIAGO II, HOWARD B Primary Care Unavailable VENNEPUREDDY, MELECIO Attending Unavailable JERAMY GARRIDO Referring Unavailable SANTIAGO II, HOWARD B Primary Care Unavailable JERAMY GARRIDO Referring Unavailable BAN, PAMELA Referring Unavailable SANTIAGO II, HOWARD B Primary Care Unavailable JERAMY GARRIDO Attending Unavailable SANTIAGO II, HOWARD B Primary Care Unavailable BAN, PAMELA Attending Unavailable SANTIAGO II, HOWARD B Primary Care Unavailable SANTIAGO II, HOWARD B Primary Care Unavailable SANTIAGO II, HOWARD B Primary Care Unavailable VENNEPUREDDY, MELECIO Attending Unavailable VENNEPUREDDY, MELECIO Referring Unavailable SANTIAGO II, HOWARD B Primary Care Unavailable SANTIAGO II, HOWARD B Primary Care Unavailable RAFAELA BAUM Attending Unavailable JERAMY GARRIDO Referring Unavailable Petznrosenda ALVARADO, Stephanie Nixon Unavailable Allergies Allergy Classification Reported Allergen(s) Allergy Type Date of Onset Reaction(s) Facility (6 sources) Penicillins; Translations: [PENICILLINS] Drug allergy (disorder) 06-28-20 05 [facility] Repository (1 source) No Known Allergies; Translations: [No Known Allergies] Propensity to adverse reactions (disorder) [facility] Repository (1 source) Penicillin; Translations: [penicillin] Drug Allergy [facility] Repository (20 sources) Alendronate; Translations: [ALENDRONATE SODIUM] Drug Allergy 11-08-19 15 Other: See Comments [facility] Work Phone: (20 sources) Nitrofurantoin; Translations: [NITROFURANTOIN MACROCRYSTAL] Drug Allergy 05-23-20 16 Vomiting [facility] (1 source) Penicillins Propensity to adverse reactions 06-28-20 05 Itching [facility] (20 sources) Penicillins Propensity to adverse reactions 06-28-20 05 Itching [facility] (2 sources) Acetaminophen / oxyCODONE Drug Allergy 01-29-20 23 Rash [facility] (2 sources) Alendronate Drug Allergy 11-08-19 15 Other [facility] (2 sources) hydroCHLOROthiazide Drug Allergy 01-29-20 [facility] (2 sources) Nitrofurantoin Drug Allergy 01-29-20 23 [facility] (2 sources) Penicillin G Drug Allergy 01-29-20 23 Hives [facility] (2 sources) tamsulosin Drug Allergy 02-20-20 [facility] (1 source) metroNIDAZOLE Drug Allergy 03-05-20 24 Shortness of breath [facility] Work Phone: Medications Current Medications Medication Drug Class(es) Dates Sig (Normalized) Sig (Original) acetaminophen 325 mg / HYDROcodone bitartrate 5 mg oral tablet (12 sources) Opioid Agonist Start: 06-14-2024 HYDROcodone-acetam inophen (Elsa) 5-325 MG tablet Indications: Complex regional pain syndrome type 1 of right upper extremity Take 1 tablet by mouth every 4 (four) hours if needed for moderate pain or severe pain 120 tablet 06/14/2024 Active Start: 06-06-2024 End: 06-13-2024 take 1 tablet by mouth every six hours as needed for pain HYDROcodone-acetaminophen (NORCO) 5-325 mg per tablet Indications: Malignant neoplasm of sigmoid colon (HCC) , Postoperative pain Take 1 tablet by mouth every 6 hours as needed (breakthrough pain) for up to 7 days. 25 tablet 06/06/2024 06/13/2024 Active Start: 10-06-2023 End: 12-05-2023 take 1 tablet by mouth every six hours for pain HYDROcodone-acetaminophen (Elsa) 10-325 MG tablet Indications: Pain , M15.0 Take 1 tablet by mouth every 6 (six) hours if needed for moderate pain 120 tablet 0 11/05/2023 12/05/2023 Active Start: 12-05-2014 HYDROcodone-ac etaminophen (NORCO) 5-325 mg per tablet Take one-two tablets every six hours as needed for pain 0 12/05/2014 Active Comment on above: Take one-two tablets every six hours as needed for pain [id number] 200 actuat albuterol 0.09 mg/actuat metered dose inhaler (1 source) beta2-Adrenergic Agonist Start: 09-19-20 23 take 2 puff(s) by inhalation every four hours as needed Ventolin HFA 108 (90 Base) MCG/ACT inhaler INHALE 2 PUFFS EVERY 4 HOURS NEEDED FOR SHORTNESS OF BREATH OR FOR WHEEZE 0 09/19/2023 Active amLODIPine 10 mg oral tablet (20 sources) Dihydropyridine Calcium Channel Nemesio Start: 10-29-19 22 take 1 tablet by mouth once daily amLODIPine (NORVASC) 10 mg tablet Take 10 mg by mouth once daily. 10/29/2021 Active aspirin 81 mg delayed release oral tablet (20 sources) Platelet Aggregation Inhibitor, Nonsteroidal Anti-inflammatory Drug Start: 02-13-20 11 take 1 tablet by mouth in the morning aspirin 81 MG EC tablet Take 81 mg by mouth in the morning. 02/12/2011 Active Start: 02-05-2007 End: 07-06-2024 take 1 tablet by mouth once daily Aspirin 81 mg ORAL Tab Take one(1) tablet daily. 0 0 02/05/2007 07/06/2024 Discontinued Comment on above: Take one(1) tablet d aily. calcium citrate 1500 mg / cholecalciferol 200 unt oral tablet (7 sources) Vitamin D Start: 07-29-20 11 take 1 tablet by mouth once daily calcium citrate-vitamin D3 (CITRACAL + D) 315-200 mg-unit ORAL Tab Take by mouth once daily. 1200mg Calcium + Vit D 1000IU (total D is 3000IU daily) 0 07/29/2011 Active Comment on above: Take by mouth once d aily. 1200mg Calcium + Vit D 1000IU (total D is 3000IU daily) capecitabine 500 mg oral tablet (8 sources) Nucleoside Metabolic Inhibitor Start: 06-15-20 24 capecitabine (XELODA) 500 mg tablet Take 3 tablets twice daily 2 weeks on, 1 week off. 84 tablet 1 06/15/2024 Active carisoprodol 350 mg oral tablet (9 sources) Muscle Relaxant Start: 08-25-20 23 carisoprodol (Soma) 350 MG tablet Indications: Spinal stenosis in cervical region TAKE 1 TABLET FOUR TIMES DAILY NEEDED 360 tablet 2 08/25/2023 Active carisoprodol (SO MA ORAL) Take by mouth. 0 Active Comment on above: Take by mouth. celecoxib 200 mg oral capsule (11 sources) Nonsteroidal Anti-inflammatory Drug Start: 012 celecoxib (CeleBREX) 200 MG capsule Indications: Depression, unspecified depression type (CMS/HCC) TAKE 1 CAPSULE EVERY DAY WITH FOOD 90 capsule 3 10/27/2023 Active Comment on above: Take 1 capsule by mo uth once daily. cholecalciferol 0.025 mg oral tablet (20 sources) Vitamin D Start: 016 take 2 tablets by mouth once daily cholecalciferol (VITAMIN D3) 1,000 unit tab Take 2 tablets by mouth once daily. 0 11/21/2015 Active Start: 02-10-2012 take 1 capsule by mo uth in the morning cholecalciferol (Vitamin D-3) 50 MCG (1999 UT) capsule Take 2,000 Units by mouth in the morning. 02/10/2012 Active Comment on above: Take 2 tablets by mo uth once daily. Continuous Blood Gluc Sensor (Dexcom G6 Sensor) misc (2 sources) Continuous Blood Gluc Sensor (Dexcom G6 Sensor) misc Inject 1 each under the skin Every 10 (ten) days Active Continuous Blood Gluc Sensor (Dexcom G6 Sensor) misc Inject 1 each under the skin Every 10 (ten) days 0 Active 0.4 ml enoxaparin sodium 100 mg/ml prefilled syringe (6 sources) Low Molecular Weight Heparin Start: 06-06-2024 End: 06-27-2024 inject 40 mg by subcutaneous injection every twenty-four hours enoxaparin (LOVENOX) 40 mg/0.4 mL Inject 0.4 mL subcutaneously every 24 hours for 21 days. 8.4 mL 06/06/2024 06/27/2024 Active enteric contrast (will be provided with radiology test) (18 sources) Start: 04-27-2024 enteric contrast (will be provided with radiology test) MRI RECTUM WO/W. Administer, As Directed One Time Only, via Oral, Rectal, both Oral and Rectal, Enteric Tube, Stoma or Indwelling Catheter, Enteric Contrast as designated per enteric contrast guidelines 1 Each 04/27/2024 Active Start: 04-27-[address] (will be provided with radiology test) MRI RECTUM WO/W. Administer, As Directed One Time Only, via Oral, Rectal, both Oral and Rectal, Enteric Tube, Stoma or Indwelling Catheter, Enteric Contrast as designated per enteric contrast guidelines 1 Each 0 04/27/2024 Active esomeprazole 40 mg delayed release oral capsule (20 sources) Proton Pump Inhibitor Start: 07-21-2015 take 1 capsule by mouth once daily esomeprazole (NEXIUM) 40 mg capsule Take 1 capsule by mouth once daily. 90 capsule 3 07/21/2015 Active Comment on above: Take 1 capsule by [facility] once daily. famotidine 20 mg oral tablet (3 sources) Histamine-2 Receptor Antagonist take 1 tablet by mouth every twelve hours as needed famotidine (PEPCID) 20 mg tablet Take 20 mg by mouth two times a day as needed. Active fluticasone propionate 0.05 mg/actuat metered dose nasal spray (20 sources) Corticosteroid Start: 03-12-2011 take 2 spray(s) nasal route in the morning fluticasone (Flonase) 50 MCG/ACT nasal spray Administer 2 sprays into each nostril in the morning. 03/12/2011 Active fluticasone (NAHED NASE ALLERGY RELIEF) 50 mcg/actuation nasal spray Use 1 Mobile in each nostril as directed. 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 No IV access, insert saline lock prior to the beginning of sedation, infusion, injection of imaging exam. Discontinue saline lock post exam. If Pt has a central line or IVAD, may access for administration according to line specific nursing protocol. Once exam is complete flush line and de-access according to line specific nursing protocol in the MR contrast administration guidelines link. 1 Each 04/27/2024 Active Start: 04-27-2024 iv contrast (w ill be provided with radiology test) MRI Rectum Inject, intravenously, once for 1 dose. No IV access, insert saline lock prior to the beginning of sedation, infusion, injection of imaging exam. Discontinue saline lock post exam. If Pt has a central line or IVAD, may access for administration according to line specific nursing protocol. Once exam is complete flush line and de-access according to line specific nursing protocol in the MR contrast administration guidelines link. 1 Each 0 04/27/2024 Active lactobacillus rhamnosus gg [id number] unt oral capsule (10 sources) Start: 06-07-2024 End: 07-07-2024 take 1 capsule by mouth in the morning lactobacillus (Culturelle) capsule Take 1 capsule by mouth in the morning. 06/07/2024 07/07/2024 Active Start: 06-07-2024 End: 07-07-2024 take 1 capsule by mouth once daily lactobacillus rhamnosus (CULTURELLE) 10 billion cell capsule Take 1 capsule by mouth once daily. 30 capsule 06/07/2024 07/06/2024 Discontinued lisinopril 20 mg oral tablet (20 sources) Angiotensin Converting Enzyme Inhibitor Start: 01-22-2024 lisinopril 20 MG tab let Indications: Mixed hyperlipidemia (CMS/HCC) TAKE 1 TABLET EVERY DAY 100 tablet 3 01/22/2024 Active Start: 05-23-2016 take 1 tablet by bernabe th once daily lisinopril (PRINIVIL) 10 mg tablet Take 1 tablet by mouth once daily. 100 tablet 3 05/23/2016 Active Comment on above: Take 1 tablet by bernabe th once daily. metroNIDAZOLE 500 mg oral tablet (1 source) Nitroimidazole Antimicrobial Start: metroNIDAZOLE (FLAGYL) 500 mg tablet Take 1 tablet by mouth as directed. Take one tab at 6:00 p.m., another at 7:00 p.m. and the last one at 11:00 p.m., prior to surgery 3 tablet 06/02/2024 Active multivitamin with minerals (ONE DAILY COMPLETE) ORAL Tab (7 sources) Start: take 1 tablet by mouth once daily, then take 1 tablet by mouth once daily multivitamin with minerals (ONE DAILY COMPLETE) ORAL Tab Take one(1) tablet daily. 0 0 07/21/2007 Active Comment on above: Take one(1) tablet d aily. neomycin sulfate 500 mg oral tablet (1 source) Aminoglycoside Antibacterial Start: neomycin 500 mg tablet Take 2 tablets by mouth as directed. Take two tabs at 6:00 p.m., 7:00 p.m. and 11:00 p.m., prior to surgery 6 tablet 06/02/2024 Active ondansetron 8 mg oral tablet (5 sources) Serotonin-3 Receptor Antagonist Start: take 1 tablet by mouth every eight hours as needed for nausea ondansetron (ZOFRAN) 8 mg tablet Indications: Rectal cancer (HCC) Take 1 tablet by mouth every 8 hours as needed for nausea/vomiting. 90 tablet 2 07/01/2024 Active prochlorperazine 10 mg oral tablet (5 sources) Phenothiazine Start: take 1 tablet by mouth every six hours as needed prochlorperazine (COMPAZINE) 10 mg tablet Indications: Rectal cancer (HCC) Take 1 tablet by mouth every 6 hours as needed. 100 tablet 2 07/01/2024 Active Psyllium (1 source) Start: 024 PSYLLIUM PO Take 1 Tbsp by mouth 06/06/2024 Active rosuvastatin calcium 5 mg oral tablet (20 sources) HMG-CoA Reductase Inhibitor Start: 024 take 1 tablet by mouth once daily rosuvastatin (CRESTOR) 5 mg tablet Take 5 mg by mouth once daily. 12/27/2023 Active sertraline 100 mg oral tablet (20 sources) Serotonin Reuptake Inhibitor Start: 023 sertraline (ZOLOFT) 100 mg tablet Take 50 mg by mouth once daily. 09/17/2023 Active Start: 08-26-2023 sertraline (Zo loft) 100 MG tablet Indications: Depression, unspecified depression type (CMS/HCC) TAKE 1 TABLET ONE TIME DAILY 90 tablet 3 08/26/2023 Active Start: 07-26-2014 take 1 tablet by bernabe th once daily sertraline (ZOLOFT) 50 mg tablet Take 1 tablet by mouth once daily. 0 07/26/2014 Active Comment on above: Take 1 tablet by bernabe th once daily. Completed/Discontinued Medications Medication Drug Class(es) Dates Sig (Normalized) Sig (Original) acetaminophen 325 mg oral tablet (10 sources) Start: 06-06-2024 End: 07-06-2024 take 1 tablet by mouth every six hours as needed acetaminophen (TYLENOL) 325 mg tablet Take 1 tablet by mouth every 6 hours as needed for pain. 06/06/2024 07/06/2024 Discontinued atorvastatin (16 sources) HMG-CoA Reductase Inhibitor End: 07-06-2024 take 5 mg by mouth once daily atorvastatin calcium (ATORVASTATIN ORAL) Take 5 mg by mouth once daily. 07/06/2024 Discontinued take 5 mg by mouth once daily at orvastatin calcium (ATORVASTATIN ORAL) Take 5 mg by mouth once daily. Active take 5 mg by mouth once daily at orvastatin calcium (ATORVASTATIN ORAL) Take 5 mg by mouth once daily. 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) , Insulin pump status USE TO TEST BLOOD SUGARS 5 TIMES DAILY 1 Each 0 01/01/2022 01/19/2024 Discontinued Start: 01-01-2022 Blood-Glucose Meter,Continuous (DEXCOM G6 BOWLING ALLEY MANAGER) [facility] Indications: 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) , Insulin pump status USE TO TEST BLOOD SUGARS 5 TIMES DAILY 1 Each 0 01/01/2022 Active Start: 01-01-2022 End: 01-01-2022 Blood-Glucose Meter,Continuo us (DEXCOM G6 BOWLING ALLEY MANAGER) [facility] Indications: 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) , Insulin pump status USE TO TEST BLOOD SUGARS 5 TIMES DAILY 1 Each 0 01/01/2022 01/01/2022 Discontinued Start: 11-08-2021 End: 01-01-2022 Blood-Glucose Meter,Continuo us (DEXCOM G6 BOWLING ALLEY MANAGER) [facility] Indications: Type 1 diabetes mellitus with hypoglycemia [...] TEST BLOOD PRETTY GARS 5 TIMES DAILY calcium chloride 0.0014 meq/ml / potassium chloride 0.004 meq/ml / sodium chloride 0.103 meq/ml / sodium lactate 0.028 meq/ml injectable solution (1 source) Start: 05-20-20 End: 05-20-20 take 30 mL intravenously every hour 30 mL/hr, INTRAVENOUS, CONTINUOUS, Starting on Margarita 05/20/24 at 1300, Until Margarita 05/20/24 at 1354, Preprocedure chondroitin sulfates 200 mg / glucosamine hydrochloride 250 mg oral tablet (7 sources) Start: 12-06-19 15 End: 01-19-20 Glucosamine-Chondro itin (OSTEO BI-FLEX) 250-200 mg tab Takes two tablets daily 0 12/05/2014 01/19/2024 Discontinued Comment on above: Takes two tablets da pamela 1 ml denosumab 60 mg/ml prefilled syringe (7 sources) RANK Ligand Inhibitor Start: 11-10-19 18 End: 01-19-20 24 PROLIA 60 mg/mL syrg ergocalciferol, vitamin D2, (VITAMIN D2 ORAL) (16 sources) End: 07-06-20 24 ergocalciferol, vitamin D2, (VITAMIN D2 ORAL) Take by mouth once daily. 07/06/2024 Discontinued ergocalciferol, vitamin D2, (VITAMIN D2 ORAL) Take by mouth once daily. Active ergocalciferol, vitamin D2, (VITAMIN D2 ORAL) Take by mouth once daily. 0 Active ezetimibe 10 mg oral tablet (7 sources) Dietary Cholesterol Absorption Inhibitor Start: 09-05-2017 End: 01-19-2024 ezetimibe (ZETIA) 10 mg tablet Take 1 tab daily 100 tablet 3 09/05/2017 01/19/2024 Discontinued Comment on above: Take 1 tab daily ferrous sulfate 325 mg oral tablet (20 sources) Start: 01-01-2024 End: 12-31-2024 ferrous sulfate 325 mg (65 mg iron) tablet Take 1 tablet by mouth. 01/01/2024 07/06/2024 Discontinued glucagon (rdna) 1 mg injection (7 sources) Antihypoglycemic Agent Start: 03-06-2017 End: 01-19-2024 glucagon, human recombinant, (GLUCAGON EMERGENCY KIT, HUMAN,) 1 mg injection Inject (1)one mg for insulin shock. 1 Each 6 03/06/2017 01/19/2024 Discontinued Comment on above: Inject (1)one mg for insulin shock. glucose 0.4 mg/mg oral gel (7 sources) Start: 11-04-2013 End: 01-19-2024 dextrose (GLUCOSE GEL) 40 % gel Take 10 g by mouth as needed. 1 Each 2 11/04/2013 01/19/2024 Discontinued Comment on above: Take 10 g by mouth a s needed. lactose-reduced food (ENSURE CLEAR ORAL) (18 sources) End: 07-06-2024 lactose-reduced food (ENSURE CLEAR ORAL) Take by mouth once daily. 07/06/2024 Discontinued lactose-reduced food (ENSURE CLEAR ORAL) Take by mouth once daily. Active lactose-reduced food (ENSURE CLEAR ORAL) Take by mouth once daily. 0 Active meloxicam 15 mg oral tablet (7 sources) Nonsteroidal Anti-inflammatory Drug End: 01-19-2024 take 1 tablet by mouth once daily meloxicam (MOBIC) 15 mg tablet Take 15 mg by mouth once daily. 0 01/19/2024 Discontinued Comment on above: Take 15 mg by mouth once daily. methocarbamol 750 mg oral tablet (9 sources) Muscle Relaxant Start: 06-06-2024 End: 07-06-2024 take 1 tablet by mouth every eight hours as needed methocarbamol (ROBAXIN) 750 mg tablet Take 1 tablet by mouth every 8 hours as needed (muscle spasm). 15 tablet 06/06/2024 07/06/2024 Discontinued mometasone furoate 0.05 mg/actuat metered dose nasal spray (20 sources) Corticosteroid Start: 07-26-2014 End: 07-06-2024 mometasone (NASONEX) 50 mcg/actuation nasal spray Use 2 Sprays in the nose once daily. 0 07/26/2014 07/06/2024 Discontinued Comment on above: Use 2 Sprays in the nose once daily. Nut.Tx.Gluc.Intol,L ac-Free,Soy (GLUCERNA) liqd (16 sources) End: 07-06-2024 take 8 [oz_av] by mouth once daily Nut.Tx.Gluc.Intol, Lac-Free,Soy (GLUCERNA) liqd Take 8 oz by mouth once daily. 07/06/2024 Discontinued take 8 [oz_av] by mo uth once daily Nut.Tx.Gluc.Intol,Lac-Free,Soy (GLUCERNA ) liqd Take 8 oz by mouth once daily. Active take 8 [oz_av] by mo uth once daily Nut.Tx.Gluc.Intol,Lac-Free,Soy (GLUCERNA ) liqd Take 8 oz by mouth once daily. 0 Active polyethylene glycol 3350 39815 mg powder for oral solution (10 sources) Osmotic Laxative Start: 06-06-2024 End: 07-06-2024 polyethylene glycol 3350 (MIRALAX) 17 gram/dose powder Take 17 g by mouth once daily as needed for constipation. Dissolve dose in 4 - 8 ounces of liquid and take as directed. 06/06/2024 07/06/2024 Discontinued Psyllium Seed-Sucrose (METAMUCIL, SUGAR,) (9 sources) Start: 06-06-2024 End: 07-06-2024 Psyllium Seed-Sucrose (METAMUCIL, SUGAR,) Take 1 Tablespoonful by mouth once daily as needed. Take as directed. 06/06/2024 07/06/2024 Discontinued Start: 06-06-2024 Psyllium Seed- Sucrose (METAMUCIL, SUGAR,) Take 1 Tablespoonful by mouth once daily as needed. Take as directed. 06/06/2024 Active 1000 ml sodium chloride 9 mg/ml injection (1 source) Start: 04-21-2024 End: 05-28-2024 take 30 mL intravenously every hour 30 mL/hr, INTRAVENOUS, CONTINUOUS, Starting on Fri04/21/24 at 0700, Until Fri05/28/24 at 1115, Preprocedure tiZANidine 4 mg oral tablet (7 sources) Central alpha-2 Adrenergic Agonist Start: 07-06-2015 End: 01-19-2024 take 1 tablet by mouth once daily tiZANidine (ZANAFLEX) 4 mg tablet Indications: DDD (degenerative disc disease), thoracic , DDD (degenerative disc disease), cervical , Muscle spasm Take 1 tablet by mouth once daily. 90 tablet 1 07/06/2015 01/19/2024 Discontinued Comment on above: Take 1 tablet by bernabe once daily. ubidecarenone 30 mg oral capsule (20 sources) End: 07-06-2024 coenzyme Q10 30 mg capsule Take 30 mg by mouth. 07/06/2024 Discontinued take 1 capsule by mouth in the m orning co-enzyme Q-10 30 MG capsule Take 30 mg by mouth in the morning. Active Problems Active Problems Problem Classification Problem Date Documented Da te Episodic/Chronic Allergic reactions (1 source) Allergy status to penicillin; Translations: [ALLERGY STATUS TO PENICILLIN] Onset: 06-15-2018 Episodic Cancer of colon (18 sources) Malignant tumor of colon; Translations: [Malignant neoplasm of colon, unspecified] Onset: 04-22-2024 06-03-2024 Chronic Cancer of rectum and anus (20 sources) Malignant tumor of rectum; Translations: [Malignant neoplasm of rectum] Onset: 04-28-2024 04-28-2024 Chronic Cardiac dysrhythmias (1 source) Palpitations; Translations: [PALPITATIONS] Onset: 06-25-2018 Episodic Chronic obstructive pulmonary disease and bronchiectasis (2 sources) Chronic obstructive lung disease; Translations: [Chronic obstructive pulmonary disease, unspecified] Onset: 01-28-2023 01-28-2023 Chronic Coronary atherosclerosis and other heart disease (1 source) Angina pectoris, unspecified; Translations: [ANGINA PECTORIS, UNSPECIFIED] Onset: 06-15-2018 Chronic Deficiency and other anemia (1 source) Anemia, unspecified; Translations: [ANEMIA, UNSPECIFIED] Onset: 06-15-2018 Episodic Deficiency and other anemia (2 sources) Iron deficiency anemia; Translations: [Iron deficiency anemia, unspecified] 01-19-2024 Episodic Diabetes mellitus with complications (20 sources) Type 1 diabetes mellitus; Translations: [Type 1 diabetes mellitus with hypoglycemia without coma] Onset: 07-22-2005 Resolved: 12-18-2009 Chronic Diabetes mellitus with complications (1 source) Type 1 diabetes mellitus with diabetic neuropathy, unspecified; Translations: [TYPE 1 DIABETES MELLITUS WITH DIABETIC NEUROPATHY, UNSP] Onset: 06-15-2018 Diabetes mellitus without complication (20 sources) Type 2 diabetes mellitus without complications; Translations: [Insulin dependent diabetes mellitus type 1B] Onset: 07-22-2005 Resolved: 12-18-2009 10-16-2015 Chronic Digestive congenital anomalies (1 source) Congenital anomaly of esophagus; 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, unspecified] 04-21-2024 Chronic Disorders of lipid metabolism (20 sources) Hyperlipidemia, unspecified; Translations: [Pure hypercholesterolemia ] Onset: 02-18-2006 02-18-2006 Chronic Diverticulosis and diverticulitis (1 source) Diverticular disease; Translations: [Diverticulosis of intestine, part unspecified, without perforation or abscess without bleeding] Onset: 03-11-2024 03-11-2024 Chronic Esophageal disorders (20 sources) Gastro-esophageal reflux disease without esophagitis; Translations: [Alkaline reflux disease] Onset: 09-26-2015 10-16-2015 Chronic Essential hypertension (20 sources) Essential (primary) hypertension; Translations: [Essential hypertension] Onset: 06-25-2018 01-28-2023 Chronic Fluid and electrolyte disorders (1 source) Hypo-osmolality and hyponatremia; Translations: [HYPO-OSMOLALITY AND HYPONATREMIA] Onset: 06-15-2018 Episodic Hypertension with complications and secondary hypertension (1 source) Secondary hypertension; Translations: [Secondary hypertension, unspecified] 04-21-2024 Chronic Hypertension with complications and secondary hypertension (3 sources) Hypertensive urgency; Translations: [HYPERTENSIVE URGENCY] Onset: 06-15-2018 Mood disorders (4 sources) Depressive disorder; Translations: [Depression] Onset: 04-30-2017 01-28-2023 Chronic Mood disorders (1 source) Major depressive disorder, single episode, unspecified; Translations: [MAJOR DEPRESSIVE DISORDER, SINGLE EPISODE, UNSPECIFIED] Onset: 06-15-2018 Nonspecific chest pain (4 sources) Chest pain, unspecified; Translations: [CHEST PAIN, UNSPECIFIED] Onset: 06-25-2018 Episodic Nutritional deficiencies (20 sources) Vitamin D deficiency; Translations: [Vitamin D deficiency, unspecified] Onset: 06-13-2008 06-13-2008 Chronic Osteoarthritis (20 sources) Arthritis; Translations: [Unspecified osteoarthritis, unspecified site] Onset: 11-02-2012 11-02-2012 Chronic Osteoporosis (3 sources) Age-related osteoporosis without current pathological fracture; Translations: [Osteoporosis] Onset: 06-15-2018 01-28-2023 Chronic Other aftercare (1 source) [facility] (current) use of aspirin; Translations: [[employer] (CURRENT) USE OF ASPIRIN] Onset: 06-25-2018 Episodic Other aftercare (1 source) [facility] (current) use of insulin; Translations: [[employer] (CURRENT) USE OF INSULIN] Onset: 06-25-2018 Episodic Other aftercare (1 source) Surgical follow-up; Translations: [Encounter for follow-up examination after completed treatment for conditions other than malignant neoplasm] 06-17-2024 Episodic Other gastrointestinal disorders (1 source) Mass of colon; Translations: [Other specified diseases of intestine] 04-21-2024 Episodic Other gastrointestinal disorders (1 source) Other specified diseases of intestine; Translations: [Colonic mass] Onset: 04-22-2024 Episodic Other lower respiratory disease (1 source) Shortness of breath; Translations: [SHORTNESS OF BREATH] Onset: 06-25-2018 Episodic Other nervous system disorders (1 source) Other chronic pain; Translations: [OTHER CHRONIC PAIN] Onset: 06-15-2018 Chronic Other nervous system disorders (20 sources) Complex regional pain syndrome type I of right upper limb; Translations: [Complex regional pain syndrome I of right upper limb] Onset: 01-26-2016 01-26-2016 Chronic Other nervous system disorders (1 source) Other acute postprocedural pain; Translations: [Postoperative pain] Onset: 06-03-2024 Episodic Other nutritional; endocrine; and metabolic disorders (20 sources) Hypercalcemia; Translations: [Hypercalcemia] Onset: 04-20-2010 04-20-2010 Chronic Other screening for suspected conditions (not mental disorders or infectious disease) (2 sources) Patient encounter status; Translations: [Encounter for screening for malignant neoplasm of colon] 01-19-2024 Episodic Other upper respiratory disease (2 sources) Allergic rhinitis; Translations: [Allergic rhinitis, unspecified] Onset: 01-28-2023 01-28-2023 Chronic Residual codes; unclassified (2 sources) History of bilateral breast implants; Translations: [Breast implant status] Onset: 01-20-2019 04-29-2023 Chronic Screening or history of mental health and substance abuse (1 source) Personal history of nicotine dependence; Translations: [PERSONAL HISTORY OF NICOTINE DEPENDENCE] Onset: 06-15-2018 Episodic Thyroid disorders (20 sources) Goiter; Translations: [Nontoxic goiter, unspecified] Onset: 12-18-2009 12-18-2009 Chronic Transient cerebral ischemia (6 sources) Transient cerebral ischemic attack, unspecified; Translations: [Transient cerebral ischemia] Onset: 03-19-2022 Chronic Unclassified (1 source) Family history of ischemic heart disease and other diseases of the circulatory system; Translations: [FAMILY HX OF ISCHEM HEART DIS AND OTH DIS OF THE [facility]] Onset: 06-15-2018 Episodic Unclassified (2 sources) Unknown / UNK(Unknown) Onset: 06-25-2018 Past or Other Problems Problem Classification Problem Date Documented Date Episodic/Chronic Abdominal hernia (20 sources) Hiatal hernia; Translations: [Diaphragmatic hernia without obstruction or gangrene] Onset: 9 04-15-2019 Episodic Chronic obstructive pulmonary disease and bronchiectasis (20 sources) Bronchitis; Translations: [Bronchitis, not specified as acute or chronic] Onset: 6 02-21-2016 Episodic Complication of device; implant or graft (20 sources) Mechanical complication of breast prosthesis; Translations: [Other mechanical complication of breast prosthesis and implant, initial encounter] Onset: 6 05-16-2006 Episodic Conditions associated with dizziness or vertigo (1 source) Dizziness and giddiness; Translations: [DIZZINESS AND GIDDINESS] Onset: 2 Episodic Deficiency and other anemia (1 source) Microcytic anemia; Translations: [Iron deficiency anemia, unspecified] Onset: 4 01-12-2024 Episodic Diabetes mellitus without complication (20 sources) Presence of insulin pump (external) (internal); Translations: [Insulin pump present] Onset: 6 Episodic Disorders of teeth and jaw (20 sources) Temporomandibular joint disorder; Translations: [Temporomandibular joint disorders, unspecified] Onset: 0 02-02-2010 Episodic Nonmalignant breast conditions (2 sources) Hypertrophy of breast; Translations: [Hypertrophy of breast] Onset: 3 01-28-2023 Episodic Other aftercare (3 sources) Long-term current use of insulin; Translations: [long term (current) use of insulin] Onset: 0 Resolved: 3 Episodic Other and unspecified benign neoplasm (20 sources) History of polyp of colon; Translations: [Personal history of colonic polyps] Onset: 7 04-18-2017 Episodic Other bone disease and musculoskeletal deformities (20 sources) Complex regional pain syndrome of upper limb; Translations: [Algoneurodystrophy, unspecified hand] Onset: 6 03-01-2016 Episodic Other connective tissue disease (2 sources) Muscle pain; Translations: [Myalgia, unspecified site] Onset: 3 01-28-2023 Episodic Other non-epithelial cancer of skin (4 sources) Basal cell carcinoma of face; Translations: [Basal cell carcinoma of skin of unspecified parts of face] Onset: 0 04-29-2023 Episodic Other skin disorders (20 sources) Mass of skin; Translations: [Localized swelling, mass and lump, unspecified] Onset: 6 10-02-2015 Episodic Otitis media and related conditions (2 sources) Dysfunction of eustachian tube; Translations: [Unspecified Eustachian tube disorder, unspecified ear] Onset: 3 01-28-2023 Episodic Pathological fracture (2 sources) Pathological fracture of vertebra; Translations: [Pathological fracture, other site, initial encounter for fracture] Onset: 1 04-29-2023 Episodic Residual codes; unclassified (20 sources) Family history of cancer of colon; Translations: [Family history of malignant neoplasm of digestive organs] Onset: 7 04-18-2017 Episodic Spondylosis; intervertebral disc disorders; other back problems (20 sources) Low back pain; Translations: [Spinal stenosis in cervical region] Onset: 6 01-26-2016 Episodic Unclassified (20 sources) Type 1 diabetes mellitus without complication; Translations: [Diabetes mellitus type 1, uncontrolled, without complications] Onset: 0 Resolved: 6 08-23-2016 Results Test Name Value Interpretation Reference Range Facility CBC W Auto Differential pane l (Bld)on 07-06-2024 Basophils (Bld) [#/Vol] [facility] Differential cell count method Nom (Bld) Auto [facility] Eosinophils (Bld) [#/Vol] 0.16 10*3/uL [facility] Immature granulocytes (Bld) [#/Vol] [facility] Immature granulocytes/100 WBC (Bld) 0.3 % [facility] Lymphocytes (Bld) [#/Vol] 2.06 10*3/uL [facility] MCHC (RBC) [Mass/Vol] 33.0 g/dL 30.5 - 36.0 g/dL [facility] Monocytes (Bld) [#/Vol] 0.41 10*3/uL [facility] Neutrophils (Bld) [#/Vol] 4.10 10*3/uL [facility] Nucleated RBC (Bld) [#/Vol] [facility] Nucleated RBC/100 WBC (Bld) [Ratio] 0.0 % /100 WBC [facility] Platelet mean volume (Bld) [Entitic vol] 9.6 fL 9.0 - 12.7 fL [facility] Platelets (Bld) [#/Vol] 294 10*3/uL [facility] WBC (Bld) [#/Vol] 6.76 10*3/uL [facility] Basophils (Bld) [#/Vol] 10*3/uL Normal <0.11 [facility] Comment on above: Order Comment: Speci men Type: BLOOD SPECIMENOrdering Facility: [facility] Address: [address] [place] [address] Performed By: #### 5 7021-8 ####[facility] LABCLIA [id number] [place] [address] Basophils/100 WBC (Bld) 0.1 % Normal [facility] Comment on above: Order Comment: Speci men Type: BLOOD SPECIMENOrdering Facility: [facility] Address: [address] [place] [address] Performed By: #### 5 7021-8 ####[facility] LABCLIA [id number] [place] [address] Differential cell count method Nom (Bld) Auto Normal [facility] Comment on above: Order Comment: Speci men Type: BLOOD SPECIMENOrdering Facility: [facility] Address: [address] [place] [address] Performed By: #### 5 7021-8 ####[facility] LABCLIA [id number] [place] [address] Eosinophils (Bld) [#/Vol] 0.16 10*3/uL Normal <0.46 [facility] Comment on above: Order Comment: Speci men Type: BLOOD SPECIMENOrdering Facility: [facility] Address: [address] [place] [address] Performed By: #### 5 7021-8 ####[facility] LABCLIA [id number] [place] [address] Eosinophils/100 WBC (Bld) 2.4 % Normal [facility] Comment on above: Order Comment: Speci men Type: BLOOD SPECIMENOrdering Facility: [facility] Address: [address] [place] [address] Performed By: #### 5 7021-8 ####[facility] LABCLIA [id number] [place] [address] Erythrocyte distribution width (RBC) [Ratio] 20.1 % High 11.5-15.0 [facility] Comment on above: Order Comment: Speci men Type: BLOOD SPECIMENOrdering Facility: [facility] Address: [address] [place] [address] Performed By: #### 5 7021-8 ####[facility] LABCLIA [id number] [place] [address] Hematocrit (Bld) [Volume fraction] 38.2 % Normal 36.0-46.0 [facility] Comment on above: Order Comment: Speci men Type: BLOOD SPECIMENOrdering Facility: [facility] Address: [address] [place] [address] Performed By: #### 5 7021-8 ####[facility] LABCLIA [id number] [place] [address] Hemoglobin (Bld) [Mass/Vol] 12.6 g/dL Normal 11.5-15.5 [facility] Comment on above: Order Comment: Speci men Type: BLOOD SPECIMENOrdering Facility: [facility] Address: [address] [place] [address] Performed By: #### 5 7021-8 ####[facility] LABCLIA [id number] [place] [address] Immature granulocytes (Bld) [#/Vol] 10*3/uL Normal <0.10 [facility] Comment on above: Order Comment: Speci men Type: BLOOD SPECIMENOrdering Facility: [facility] Address: [address] [place] [address] Performed By: #### 5 7021-8 ####[facility] LABCLIA [id number] [place] [address] Immature granulocytes/100 WBC (Bld) 0.3 % Normal [facility] Comment on above: Order Comment: Speci men Type: BLOOD SPECIMENOrdering Facility: [facility] Address: [address] [place] [address] Performed By: #### 5 7021-8 ####[facility] LABCLIA [id number] [place] [address] Lymphocytes (Bld) [#/Vol] 2.06 10*3/uL Normal 1.00-4.00 [facility] Comment on above: Order Comment: Speci men Type: BLOOD SPECIMENOrdering Facility: [facility] Address: [address] [place] [address] Performed By: #### 5 7021-8 ####[facility] LABIA [id number] [place] [address] Lymphocytes/100 WBC (Bld) 30.5 % Normal [facility] Comment on above: Order Comment: Speci men Type: BLOOD SPECIMENOrdering Facility: [facility] Address: [address] [place] [address] Performed By: #### 5 7021-8 ####[facility] LABCLIA [id number] [place] [address] MCH (RBC) [Entitic mass] 28.3 pg Normal 26.0-34.0 [facility] Comment on above: Order Comment: Speci men Type: BLOOD SPECIMENOrdering Facility: [facility] Address: [address] [place] [address] Performed By: #### 5 7021-8 ####[facility] LABIA [id number] [place] [address] MCHC (RBC) [Mass/Vol] 33.0 g/dL Normal 30.5-36.0 [facility] Comment on above: Order Comment: Speci men Type: BLOOD SPECIMENOrdering Facility: [facility] Address: [address] [place] [address] Performed By: #### 5 7021-8 ####[facility] LABCLIA [id number] [place] [address] MCV (RBC) [Entitic vol] 85.7 fL Normal 80.0-100.0 [facility] Comment on above: Order Comment: Speci men Type: BLOOD SPECIMENOrdering Facility: [facility] Address: [address] [place] [address] Performed By: #### 5 7021-8 ####[facility] LABCLIA [id number] [place] [address] Monocytes (Bld) [#/Vol] 0.41 10*3/uL Normal <0.87 [facility] Comment on above: Order Comment: Speci men Type: BLOOD SPECIMENOrdering Facility: [facility] Address: [address] [place] [address] Performed By: #### 5 7021-8 ####[facility] LABCLIA [id number] [place] [address] Monocytes/100 WBC (Bld) 6.1 % Normal [facility] Comment on above: Order Comment: Speci men Type: BLOOD SPECIMENOrdering Facility: [facility] Address: [address] [place] [address] Performed By: #### 5 7021-8 ####[facility] LABCLIA [id number] [place] [address] Neutrophils (Bld) [#/Vol] 4.10 10*3/uL Normal 1.45-7.50 [facility] Comment on above: Order Comment: Speci men Type: BLOOD SPECIMENOrdering Facility: [facility] Address: [address] [place] [address] Performed By: #### 5 7021-8 ####[facility] LABCLIA [id number] [place] [address] Neutrophils/100 WBC (Bld) 60.6 % Normal [facility] Comment on above: Order Comment: Speci men Type: BLOOD SPECIMENOrdering Facility: [facility] Address: [address] [place] [address] Performed By: #### 5 7021-8 ####[facility] LABCLIA [id number] [place] [address] Nucleated RBC (Bld) [#/Vol] 10*3/uL Normal <0.01 [facility] Comment on above: Order Comment: Speci men Type: BLOOD SPECIMENOrdering Facility: [facility] Address: [address] [place] [address] Performed By: #### 5 7021-8 ####[facility] LABCLIA [id number] [place] [address] Nucleated RBC/100 WBC (Bld) [Ratio] 0.0 /100 WBC Normal [facility] Comment on above: Order Comment: Speci men Type: BLOOD SPECIMENOrdering Facility: [facility] Address: [address] [place] [address] Performed By: #### 5 7021-8 ####[facility] LABIA [id number] [place] [address] Platelet mean volume (Bld) [Entitic vol] 9.6 fL Normal 9.0-12.7 [facility] Comment on above: Order Comment: Speci men Type: BLOOD SPECIMENOrdering Facility: [facility] Address: [address] [place] [address] Performed By: #### 5 7021-8 ####[facility] LABCLIA [id number] [place] [address] Platelets (Bld) [#/Vol] 294 10*3/uL Normal 150-400 [facility] Comment on above: Order Comment: Speci men Type: BLOOD SPECIMENOrdering Facility: [facility] Address: [address] [place] [address] Performed By: #### 5 7021-8 ####[facility] LABCLIA [id number] [place] [address] RBC (Bld) [#/Vol] 4.46 10*6/uL Normal 3.90-5.20 [facility] Comment on above: Order Comment: Speci men Type: BLOOD SPECIMENOrdering Facility: [facility] Address: [address] [place] [address] Performed By: #### 5 7021-8 ####[facility] LABCLIA [id number] [place] [address] WBC (Bld) [#/Vol] 6.76 10*3/uL Normal 3.70-11.00 [facility] Comment on above: Order Comment: Speci men Type: BLOOD SPECIMENOrdering Facility: [facility] Address: [address] [place] [address] Performed By: #### 5 7021-8 ####[facility] LABCLIA [id number] [place] [address] [facility] CBC W AUTO DIFF BLDon [facility] BASOPHILS # BLD AUTO <0.03 [facility] DIFFERENTIAL METHOD BLD Auto [facility] EOSINOPHIL # BLD AUTO 0.16 [facility] LYMPHOCYTES # BLD AUTO 2.06 [facility] MONOCYTES # BLD AUTO 0.41 [facility] NEUTROPHILS # BLD AUTO 4.1 [facility] NRBC # BLD AUTO <0.01 [facility] NRBC/100 WBC BLD-RTO 0 /100 WBC [facility] PLATELET # BLD AUTO 294 [facility] PMV BLD AUTO 9.6 fL 9.0 - 12.7 fL [facility] WBC # BLD AUTO 6.76 [facility] IMM GRANULOCYTES # BLD AUTO <0.03 [facility] IMM GRANULOCYTES/LEUK NFR BLD AUTO 0.3 % [facility] MCHC (RBC) [Mass/Vol] 33 g/dL 30.5 - 36.0 g/dL [facility] Specimen Type: BLOOD SPECIMEN [facility] Address: [address] [place] [address] Original Ordering Provider: [facility]FSON [facility] Carcinoembryonic Ag [Mass/Vol] 6.3 ng/mL High <=2.9 [facility] Comment on above: Order Comment: Speci men Type: BLOOD SPECIMENOrdering Facility: [facility] Address: [address] [place] [address] Result Comment: Carc inoembryonic antigen test is used as an aid in monitoring response to treatment or recurrence in patients with established colorectal, breast, lung, prostatic, pancreatic, and ovarian carcinomas. Clinical correlation is required. The Carcinoembryonic antigen test was performed using the FlowPlayel DXI paramagnetic particle chemiluminescent immunoassay method. Results obtained with different assay methods or kits cannot be used interchangeably. Performed By: #### 2 039-6 ####[facility] LABCLIA [id number] [address] CNNURSEon 07-06-2024 CNNURSE Nurse Visit (HEMASA) RODRIGUE WALLACE ([id number]) 1950 F Date Time Provider Department 07/06/24 2:00 PM JANNETH FAN HEMASA During your visit today, we recorded the following information about you: Janneth Fan, RN 07/06/2024 2:41 PM Signed ORAL ANTI-CANCER AGENTS EDUCATION patient and spouse here today for oral medication education of Xeloda (capecitabine) for Colon / Rectal Cancer Anticipated/Scheduled start date: tomorrow, 07/07/24 READINESS TO LEARN Cognitive Ability: Alert and oriented Motivation to Learn: Interested Family Support: High - Very involved in pt care Instruction Provided to: Patient and Spouse Patient learns best by: Multiple Methods Factors affecting learning: None Physical limitation affecting learning: None POMPA ASSESSMENT: 1.) Verified that patient knows that the oral agents are for cancer and are taken by mouth. Yes 2.) Medication review completed during visit. Yes 3.) Patient is able to swallow pills. Yes 4.) Patient is able to read the drug label/information. Yes 5.) Patient is able to open the medication bottles and packages. Yes 6.) Has patient taken other pills for cancer? No 7.) Is patient experiencing any symptoms that would affect their ability to keep down pills, for example nausea or vomiting? No 8.) Verified that patient understands prescription delivery, benefit investigation and refill process. Yes Filling at [facility] pharmacy DRUG-SPECIFIC EDUCATION: 1.) Verified patient knows the drug name. Yes 2.) Verified patient understands the dose and schedule of oral anti cancer agent. Yes 3.) Verified patient knows what to do if a medication dose is missed. Yes 4.) Verified patient understands where to store the drug. Yes 5.) Verified patient understands potential side effects and how to manage them. Yes 6.)Verified patient understands handling precautions of oral anti cancer agent. Yes 7.) Verified patient was given written instructions and understands when and whom to call with questions. Yes 8.) Verified patient understands where and how to return drug. Yes 9.) Verified patient received drug specific adult education handout and neutropenic wallet card Yes EVALUATE: The patient and spouse demonstrated an understanding of all the above education using the teach-back method. Yes Instructed to call us with any questions, concerns, and/or unresolved symptoms. Will continue to follow up and provide reinforcement of teaching topics as needed. Janneth Fan RN Allergies As of Date: 07/06/2024 Noted Allergy Reaction FOSAMAX (ALENDRONATE SODIUM) 11/08/2014 14 - Other: See Comments Comments: Leg cramps, severe MACRODANTIN (NITROFURANTOIN MACRO*05/23/2016 11 - Vomiting PENICILLINS 06/28/2005 9 - Itching Date Reviewed: 07/06/2024 Reviewed by: Griselda Bernal MA - Fully Assessed Reason for Visit: First Time Treatment Education [3549] Primary Visit Diagnosis:Malignant neoplasm of sigmoid colon (HCC) [C18.7] Prescriptions as of 07/06/2024 - celecoxib (CELEBREX) 200 mg capsule Take 200 mg by mouth once daily. - famotidine (PEPCID) 20 mg tablet Take 20 mg by mouth two times a day as needed. - prochlorperazine (COMPAZINE) 10 mg tablet Take 1 tablet by mouth every 6 hours as needed. - ondansetron (ZOFRAN) 8 mg tablet Take 1 tablet by mouth every 8 hours as needed for nausea/vomiting. - capecitabine (XELODA) 500 mg tablet Take 3 tablets twice daily 2 weeks on, 1 week off. - sertraline (ZOLOFT) 100 mg tablet Take 50 mg by mouth once daily. - lisinopril (ZESTRIL) 20 mg tablet Take 20 mg by mouth once daily. - fluticasone (FLONASE ALLERGY RELIEF) 50 mcg/actuation nasal spray Use 1 Mobile in each nostril as directed. - iv contrast (will be provided with radiology test) MRI Rectum Inject, intravenously, once for 1 dose. No IV access, insert saline lock prior to the beginning of sedation, infusion, injection of imaging exam. Discontinue saline lock post exam. If Pt has a central line or IVAD, may access for administration according to line specific nursing protocol. Once exam is complete flush line and de-access according to line specific nursing protocol in the MR contrast administration guidelines link. - enteric contrast (will be provided with radiology test) MRI RECTUM WO/W. Administer, As Directed One Time Only, via Oral, Rectal, both Oral and Rectal, Enteric Tube, Stoma or Indwelling Catheter,? Enteric Contrast as designated per enteric contrast guidelines - rosuvastatin (CRESTOR) 5 mg tablet Take 5 mg by mouth once daily. - amLODIPine (NORVASC) 10 mg tablet Take 10 mg by mouth once daily. - NOVOLOG U-100 INSULIN ASPART 100 unit/mL Use via insulin pump, 30 units daily - cholecalciferol (VITAMIN D3) 1,000 unit tab Take 2 tablets by mouth once daily. - esomeprazole (NEXIUM) 40 mg capsule Take 1 capsule by mout (more content not included)... Normal [facility] CNOVSPon 07-06-2024 OVSP Visit (SP) [facility] RODRIGUE WALLACE ([id number]) 1950 F Date Time Provider Department 07/06/24 1:30 PM MELECIO VAZQUEZ During your visit today, we recorded the following information about you: Temperature Pulse Respiration Blood pressure 97.1 degrees 74/minute 16/minute 155/80 Weight Height 65.1 kg 1.6 m Melecio Vazquez MD 07/06/2024 2:32 PM Signed PATIENT NAME: Rodrigue Wallace CLINIC NO.: [id number] ATTENDING PHYSICIAN: Melecio Vazquez MD DATE OF SERVICE: 07/06/[address] Jeramy Garrido [id number] [place] [address] thank you for referring Rodrigue Wallace for an opinion regarding colon cacner. Some of the elements of this note have been copied from my previous progress note dated 06/15/24. All the information has been reviewed carefully. CHIEF COMPLAINT: colon cancer HPI: Rodrigue Wallace is a 74 year old year old female referred to us for recently diagnosed colon cancer. Sigmoidoscopy 05/20/24 - Malignant tumor in the sigmoid colon. Tattooed. - No specimens collected. Colonoscopy 04/21/24 - Dr. Sandy Cristobal - Likely malignant tumor in the proximal rectum, in the recto-sigmoid colon and in the distal sigmoid colon. Biopsied. - Moderate diverticulosis in the sigmoid colon. There was no evidence of diverticular bleeding. - Diverticulosis in the entire examined colon. - The examined portion of the ileum was normal. Pathology DISTAL SIGMOID COLON MASS, BIOPSY: FRAGMENTS OF INVASIVE ADENOCARCINOMA. MRI rectum 05/17/24 No rectal mass identified. Suspicion of mild wall thickening with minimally restricted diffusion in the sigmoid colon which may represent the tumor. Stage: T1/2 N0 MRF: Clear (tumor margin >2 mm from MRF) Sphincter involvement: No. Suspicious extra mesorectal lymph nodes: No. EMVI: No. CT chest 04/28/24 No intrathoracic lymphadenopathy. Multiple small nonspecific scattered bilateral pulmonary nodules (measuring up to 4 mm in size). Of note, 3 mm and 2 mm most inferiorly located nodules are stable compared with limited images through the lung bases on prior CT imaging of the abdomen and pelvis dated 03/05/2024 and 02/26/2024. Mild stable superior endplate deformity and mild chronic loss of height at L1. No thoracic vertebral body compression deformities. Scattered nonspecific tiny sclerotic foci within multiple bilateral ribs and 7 mm sclerotic lesion along the anterior inferior sternum as described. Suspect small nonspecific osseous lucent lesion within the ninth LEFT lateral rib. CT abdomen/pelvis 03/05/24 Falciform hypodensity focal increased fat, posterior diaphragmatic hernia containing stomach, colonic diverticulosis without diverticulitis s/p Laparoscopic Proctosigmoidectomy (Anterior Resection), Laparoscopic Mobilization of Splenic Flexure, Flexible Sigmoidoscopy with Dr. Garrido on 06/03/2024 for rectosigmoid colon cancer FINAL DIAGNOSIS Left colon and rectum, resection: - Invasive moderately differentiated adenocarcinoma (see synoptic report). - Metastatic adenocarcinoma involving one of twenty-two lymph nodes (10/13). - Submucosal lipoma. - Diverticulosis Clinical Pathologic Stage: pT2 pN1a Mx stage IIIA. MSI intact. Doing well currently. Eating and drinking good. No bowel or urinary complaints. Updated visit 07/06/24: - Doing well - No major complaints - Eating and drinking good. Current Outpatient Medications Medication Sig prochlorperazine (COMPAZINE) 10 mg tablet Take 1 tablet by mouth every 6 hours as needed. ondansetron (ZOFRAN) 8 mg tablet Take 1 tablet by mouth every 8 hours as needed for nausea/vomiting. capecitabine (XELODA) 500 mg tablet Take 3 tablets twice daily 2 weeks on, 1 week off. sertraline (ZOLOFT) 100 mg tablet Take 50 mg by mouth once daily. lisinopril (ZESTRIL) 20 mg tablet Take 20 mg by mouth once daily. fluticasone (FLONASE ALLERGY RELIEF) 50 mcg/actuation nasal spray Use 1 Mobile in each nostril as directed. iv contrast (will be provided with radiology test) MRI Rectum Inject, intravenously, once for 1 dose. No IV access, insert saline lock prior to the beginning of sedation, infusion, injection of imaging exam. Discontinue saline lock post exam. If Pt has a central line or IVAD, may access for administration according to line specific nursing protocol. Once exam is complete flush line and de-access according to line specific nursing protocol in the MR contrast administration guidelines link. enteric contrast (will be provided with radiology test) MRI RECTUM WO/W. Administer, As Directed One Time Only, via Oral, Rectal, both Oral and Rectal, Enteric Tube, Stoma or Indwelling Catheter, Enteric Contrast as designated per enteric contrast guidelines rosuvastatin (CRESTOR) 5 mg tablet Take 5 mg by mouth once daily. amLODIPine (NORVASC) 1 (more content not included)... Normal [facility] Comprehensive metabolic 2000 panelOrdered By: Mildred Valderrama on 07-06-2024 Albumin [Mass/Vol] 4.4 g/dL 3.9 - 4.9 g/dL [facility] ALP [Catalytic activity/Vol] 81 U/L 34 - 123 U/L [facility] ALT [Catalytic activity/Vol] 6 U/L Low 7 - 38 U/L [facility] Anion gap [Moles/Vol] 11 mmol/L 8 - 15 mmol/L [facility] AST [Catalytic activity/Vol] 18 U/L 13 - 35 U/L [facility] Bilirubin [Mass/Vol] 0.3 mg/dL 0.2 - 1 .3 mg/dL [facility] Calcium [Mass/Vol] 9.4 mg/dL 8.5 - 10. 2 mg/dL [facility] Chloride [Moles/Vol] 90 mmol/L Low 98 - 10 7 mmol/L [facility] CO2 [Moles/Vol] 27 mmol/L 22 - 30 mmol/L [facility] Creatinine [Mass/Vol] 0.58 mg/dL 0.58 - 0.96 mg/dL [facility] GFR/1.73 sq M.predicted among non-blacks MDRD (S/P/Bld) [Vol rate/Area] 96 mL/min/{1.73_m2} - PINF [facility] Comment on above: Estimated Glomerular Filtration Rate (eGFR) is calculated using the 2020 CKD-EPI creatinine equation. This equation utilizes serum creatinine, sex, and age as parameters. The creatinine assay has traceable calibration to isotope dilution-mass spectrometry. Refer to KDIGO guidelines for clinical interpretation. In patients with unstable renal function, e.g. those with acute kidney injury, the eGFR may not accurately reflect actual GFR. Glucose [Mass/Vol] 255 mg/dL High 74 - 99 mg/dL [facility] Comment on above: The [place] Di[employer] Association (ADA) provides guidance for cutoff values for fasting glucose and random glucose. The ADA defines fasting as no caloric intake for at least 8 hours. Fasting plasma glucose results between 100 to 125 mg/dL indicate increased risk for diabetes (prediabetes). Fasting plasma glucose results greater than or equal to 126 mg/dL meet the criteria for diagnosis of diabetes. In the absence of unequivocal hyperglycemia, results should be confirmed by repeat testing. In a patient with classic symptoms of hyperglycemia or hyperglycemic crisis, random plasma glucose results greater than or equal to 200 mg/dL meet the criteria for diagnosis of diabetes. Reference: Standards of Medical Care in Diabetes 2016, [place] [employer]. Diabetes Care. 2016.39(Suppl 1). Interpretation and review of laboratory results Abnormal [facility] Potassium [Moles/Vol] 4.3 mmol/L 3.7 - 5.1 mmol/L [facility] Protein [Mass/Vol] 7.5 g/dL 6.3 - 8.0 g/dL [facility] Sodium [Moles/Vol] 128 mmol/L Low 136 - 144 mmol/L [facility] Urea nitrogen [Mass/Vol] 11 mg/dL 7 - 21 mg/dL [facility] Comprehensive metabolic 2000 panelon 07-06-2024 Albumin [Mass/Vol] 4.4 g/dL Normal 3.9-4.9 [facility] Comment on above: Order Comment: Speci men Type: BLOOD SPECIMENOrdering Facility: [facility] Address: [address] [place] [address] Performed By: #### 2 4323-8 ####[facility] LABCLIA [id number] [place] [address] ALP [Catalytic activity/Vol] 81 U/L Normal 34-123 [facility] Comment on above: Order Comment: Speci men Type: BLOOD SPECIMENOrdering Facility: [facility] Address: [address] [place] [address] Performed By: #### 2 4323-8 ####[facility] LABCLIA [id number] [place] [address] ALT [Catalytic activity/Vol] 6 U/L Low 7-38 [facility] Comment on above: Order Comment: Speci men Type: BLOOD SPECIMENOrdering Facility: [facility] Address: [address] [place] [address] Performed By: #### 2 4323-8 ####[facility] LABCLIA [id number] [place] [address] Anion gap [Moles/Vol] 11 mmol/L Normal 8-15 [facility] Comment on above: Order Comment: Speci men Type: BLOOD SPECIMENOrdering Facility: [facility] Address: [address] [place] [address] Performed By: #### 2 4323-8 ####[facility] LABCLIA [id number] [place] [address] AST [Catalytic activity/Vol] 18 U/L Normal 13-35 [facility] Comment on above: Order Comment: Speci men Type: BLOOD SPECIMENOrdering Facility: [facility] Address: [address] [place] [address] Performed By: #### 2 4323-8 ####[facility] LABCLIA [id number] [place] [address] Bilirubin [Mass/Vol] 0.3 mg/dL Normal 0.2-1.3 [facility] Comment on above: Order Comment: Speci men Type: BLOOD SPECIMENOrdering Facility: [facility] Address: [address] [place] [address] Performed By: #### 2 4323-8 ####[facility] LABCLIA [id number] [place] [address] Calcium [Mass/Vol] 9.4 mg/dL Normal 8.5-10.2 [facility] Comment on above: Order Comment: Speci men Type: BLOOD SPECIMENOrdering Facility: [facility] Address: [address] [place] [address] Performed By: #### 2 4323-8 ####[facility] LABCLIA [id number] [place] [address] Chloride [Moles/Vol] 90 mmol/L Low 98-107 [facility] Comment on above: Order Comment: Speci men Type: BLOOD SPECIMENOrdering Facility: [facility] Address: [address] [place] [address] Performed By: #### 2 4323-8 ####[facility] LABCLIA [id number] [place] [address] CO2 [Moles/Vol] 27 mmol/L Normal 22-30 [facility] Comment on above: Order Comment: Speci men Type: BLOOD SPECIMENOrdering Facility: [facility] Address: [address] [place] [address] Performed By: #### 2 4323-8 ####[facility] LABCLIA [id number] [place] [address] Creatinine [Mass/Vol] 0.58 mg/dL Normal 0.58-0.96 [facility] Comment on above: Order Comment: Speci men Type: BLOOD SPECIMENOrdering Facility: [facility] Address: [address] [place] [address] Performed By: #### 2 4323-8 ####[facility] LABCLIA [id number] [place] [address] Creatinine and Glomerular filtration rate.predicted panel (S/P/Bld) 96 mL/min/1.73m??? Normal >=60 [facility] Comment on above: Order Comment: Speci men Type: BLOOD SPECIMENOrdering Facility: [facility] Address: [address] [place] [address] Result Comment: Ludy mated Glomerular Filtration Rate (eGFR) is calculated using the 2020 CKD-EPI creatinine equation. This equation utilizes serum creatinine, sex, and age as parameters. The creatinine assay has traceable calibration to isotope dilution-mass spectrometry. Refer to KDIGO guidelines for clinical interpretation. In patients with unstable renal function, e.g. those with acute kidney injury, the eGFR may not accurately reflect actual GFR. Performed By: #### 2 4323-8 ####[facility] LABCLIA [id number] [place] [address] Glucose [Mass/Vol] 255 mg/dL High 74-99 [facility] Comment on above: Order Comment: Speci men Type: BLOOD SPECIMENOrdering Facility: [facility] Address: [address] [place], [place] [address] Result Comment: The [place] Diabetes Association (ADA) provides guidance for cutoff values for fasting glucose and random glucose. The ADA defines fasting as no caloric intake for at least 8 hours. Fasting plasma glucose results between 100 to 125 mg/dL indicate increased risk for diabetes (prediabetes). Fasting plasma glucose results greater than or equal to 126 mg/dL meet the criteria for diagnosis of diabetes. In the absence of unequivocal hyperglycemia, results should be confirmed by repeat testing. In a patient with classic symptoms of hyperglycemia or hyperglycemic crisis, random plasma glucose results greater than or equal to 200 mg/dL meet the criteria for diagnosis of diabetes. Reference: Standards of Medical Care in Diabetes 2016, [place] [employer]. Diabetes Care. 2016.39(Suppl 1). Performed By: #### 2 4323-8 ####[facility] LABCLIA [id number] [place] [address] Potassium [Moles/Vol] 4.3 mmol/L Normal 3.7-5.1 [facility] Comment on above: Order Comment: Speci men Type: BLOOD SPECIMENOrdering Facility: [facility] Address: [address] [place] [address] Performed By: #### 2 4323-8 ####[facility] LABCLIA [id number] [place] [address] Protein [Mass/Vol] 7.5 g/dL Normal 6.3-8.0 [facility] Comment on above: Order Comment: Speci men Type: BLOOD SPECIMENOrdering Facility: [facility] Address: [address] [place], [place] [address] Performed By: #### 2 4323-8 ####[facility] LABCLIA [id number] [place] [address] Sodium [Moles/Vol] 128 mmol/L Low 136-144 [facility] Comment on above: Order Comment: Speci men Type: BLOOD SPECIMENOrdering Facility: [facility] Address: [address] [place] [address] Performed By: #### 2 4323-8 ####[facility] LABCLIA [id number] [place] [address] Urea nitrogen [Mass/Vol] 11 mg/dL Normal 7-21 [facility] Comment on above: Order Comment: Speci men Type: BLOOD SPECIMENOrdering Facility: [facility] Address: [address] [place] [address] Performed By: #### 2 4323-8 ####[facility] LABCLIA [id number] [place] [address] Ferritin SerPl-mCncon 2023 Ferritin [Mass/Vol] 55.4 ng/mL Normal 14.7-205.1 [facility] Comment on above: Order Comment: Speci men Type: BLOOD SPECIMENOrdering Facility: [facility] Address: [address] [place] [address] Performed By: #### 2 284-8, 2132-9, 2276-4, 45899-2 ####[facility] LABCLIA [id number] [place] [address] [place] Folate SerPl-mCncon 07-06-20 Folate [Mass/Vol] 15.5 ng/mL Normal >4.7 [facility] Comment on above: Order Comment: Speci men Type: BLOOD SPECIMENOrdering Facility: [facility] Address: [address] [place] [address] Performed By: #### 2 284-8, 2132-9, 2276-4, 83635-3 ####[facility] LABCLIA [id number] [place] [id number] [place] Iron and Iron binding capaci ty panelon 07-06-2024 Iron [Mass/Vol] 43 ug/dL Normal 41-186 [facility] Comment on above: Order Comment: Speci men Type: BLOOD SPECIMENOrdering Facility: [facility] Address: [address] [place] [address] Performed By: #### 2 284-8, 2132-9, 2276-4, 66443-5 ####[facility] LABCLIA [id number] [address] [place] Iron binding capacity [Mass/Vol] 310 ug/dL Normal 232-386 [facility] Comment on above: Order Comment: Speci men Type: BLOOD SPECIMENOrdering Facility: [facility] Address: [address] [place] [address] Performed By: #### 2 284-8, 2132-9, 2276-4, 05513-1 ####[facility] LABCLIA [id number] [address] [place] Iron/TIBC [Molar ratio] 13.9 % Low 15.0-57.0 [facility] Comment on above: Order Comment: Speci men Type: BLOOD SPECIMENOrdering Facility: [facility] Address: [address] [place] [address] Performed By: #### 2 284-8, 2132-9, 2276-4, 80411-6 ####[facility] LABCLIA [id number] [place] [id number] [place] Laboratory - Hematology and Cell countson 07-06-2024 Basophils/100 WBC (Bld) 0.1 % [facility] Eosinophils/100 WBC (Bld) 2.4 % [facility] Erythrocyte distribution width (RBC) [Ratio] 20.1 % High 11.5 - 15.0 % [facility] Hematocrit (Bld) [Volume fraction] 38.2 % 36.0 - 46.0 % [facility] Hemoglobin (Bld) [Mass/Vol] 12.6 g/dL 11.5 - 15.5 g/dL [facility] Lymphocytes/100 WBC (Bld) 30.5 % [facility] MCH (RBC) [Entitic mass] 28.3 pg 26.0 - 34.0 pg [facility] MCV (RBC) [Entitic vol] 85.7 fL 80.0 - 100.0 fL [facility] Monocytes/100 WBC (Bld) 6.1 % [facility] Neutrophils/100 WBC (Bld) 60.6 % [facility] RBC (Bld) [#/Vol] 4.46 10*6/uL 3.90 - 5.2 0 m/uL [facility] No Panel Informationon 07-06 Interpretation and review of laboratory results Abnormal [facility] Vit B12 SerPl-mCncon 024 Cobalamin (Vitamin B12) [Mass/Vol] 485 pg/mL Normal 232-1245 [facility] Comment on above: Order Comment: Speci men Type: BLOOD SPECIMENOrdering Facility: [facility] Address: [address] [place] [address] Performed By: #### 2 284-8, 2132-9, 2276-4, 05142-1 ####[facility] LABCLIA [id number] [address] [place] Efrain 07-01-2024 RHEAN Telephone (HEMASA) RODRIGUE WALLACE ([id number]) 1950 F Date Time Provider Department 07/01/24 JANNETH FAN During your visit today, we recorded the following information about you: Janneth Fan, RN 07/01/2024 11:44 AM Signed Call placed to pt to discuss Nexium with her. Pt states she's been taking this for a few years due to a large hiatal hernia she has. She states she gets good relief from it and is hesitant to stop it, but is agreeable if she has something else to try. Pt also states that if she has a nausea medication to take that this may help as well. Explained to pt that antiemetics will be prescribed for her, and that she can try tums or pepcid as well. Pt states she is willing to try one of these avenues, and would like to proceed with treatment. Please sign pending orders. Thanks Janneth Fan RN Allergies As of Date: 07/01/2024 Noted Allergy Reaction FOSAMAX (ALENDRONATE SODIUM) 11/08/2014 14 - Other: See Comments Comments: Leg cramps, severe MACRODANTIN (NITROFURANTOIN MACRO*05/23/2016 11 - Vomiting PENICILLINS 06/28/2005 9 - Itching Date Reviewed: 07/01/2024 Reviewed by: Janee Dailey PA-C - Fully Assessed Reason for Visit: Care Coordination [3491] Cmt: Medication update Primary Visit Diagnosis:Rectal cancer (HCC) [C20] Order(s):prochlorperazi ne (COMPAZINE) 10 mg tabletTake 1 tablet by mouth every 6 hours as needed.Disp: 100 tabletRfl: 2 ondansetron (ZOFRAN) 8 mg tabletTake 1 tablet by mouth every 8 hours as needed for nausea/vomiting.Disp: 90 tabletRfl: 2 CONSULT TO ONCOLOGY NUTRITION [[id number]] Order #: [id number]: 1 FUTURE CONSULT TO SURVIVORSHIP [138759] Order #: [id number]: 1 FUTURE Prescriptions as of 07/01/2024 - prochlorperazine (COMPAZINE) 10 mg tablet Take 1 tablet by mouth every 6 hours as needed. - ondansetron (ZOFRAN) 8 mg tablet Take 1 tablet by mouth every 8 hours as needed for nausea/vomiting. - capecitabine (XELODA) 500 mg tablet Take 3 tablets twice daily 2 weeks on, 1 week off. - acetaminophen (TYLENOL) 325 mg tablet Take 1 tablet by mouth every 6 hours as needed for pain. - methocarbamol (ROBAXIN) 750 mg tablet Take 1 tablet by mouth every 8 hours as needed (muscle spasm). - lactobacillus rhamnosus (CULTURELLE) 10 billion cell capsule Take 1 capsule by mouth once daily. - polyethylene glycol 3350 (MIRALAX) 17 gram/dose powder Take 17 g by mouth once daily as needed for constipation. Dissolve dose in 4 - 8 ounces of liquid and take as directed. - Psyllium Seed-Sucrose (METAMUCIL, SUGAR,) Take 1 Tablespoonful by mouth once daily as needed. Take as directed. - sertraline (ZOLOFT) 100 mg tablet Take 100 mg by mouth once daily. - lisinopril (ZESTRIL) 20 mg tablet Take 20 mg by mouth once daily. - atorvastatin calcium (ATORVASTATIN ORAL) Take 5 mg by mouth once daily. - ergocalciferol, vitamin D2, (VITAMIN D2 ORAL) Take by mouth once daily. - fluticasone (FLONASE ALLERGY RELIEF) 50 mcg/actuation nasal spray Use 1 Mobile in each nostril as directed. - Nut.Tx.Gluc.Intol,Lac-F ree,Soy (GLUCERNA) liqd Take 8 oz by mouth once daily. - iv contrast (will be provided with radiology test) MRI Rectum Inject, intravenously, once for 1 dose. No IV access, insert saline lock prior to the beginning of sedation, infusion, injection of imaging exam. Discontinue saline lock post exam. If Pt has a central line or IVAD, may access for administration according to line specific nursing protocol. Once exam is complete flush line and de-access according to line specific nursing protocol in the MR contrast administration guidelines link. - enteric contrast (will be provided with radiology test) MRI RECTUM WO/W. Administer, As Directed One Time Only, via Oral, Rectal, both Oral and Rectal, Enteric Tube, Stoma or Indwelling Catheter,? Enteric Contrast as designated per enteric contrast guidelines - lactose-reduced food (ENSURE CLEAR ORAL) Take by mouth once daily. - ferrous sulfate 325 mg (65 mg iron) tablet Take 1 tablet by mouth. - rosuvastatin (CRESTOR) 5 mg tablet - coenzyme Q10 30 mg capsule Take 30 mg by mouth. - amLODIPine (NORVASC) 10 mg tablet - NOVOLOG U-100 INSULIN ASPART 100 unit/mL Use via insulin pump, 30 units daily - cholecalciferol (VITAMIN D3) 1,000 unit tab Take 2 tablets by mouth once daily. - esomeprazole (NEXIUM) 40 mg capsule Take 1 capsule by mouth once daily. - mometasone (NASONEX) 50 mcg/actuation nasal spray Use 2 Sprays in the nose once daily. - Aspirin 81 mg ORAL Tab Take one(1) tablet daily. 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 (more content not included)... Normal [facility] CNOVon 06-17-2024 CNOV Office Visit ([facility] ) RODRIGUE WALLACE ([id number]) 1950 F Date Time Provider Department 06/17/24 3:00 PM RAFAELA BAUM [facility] During your visit today, we recorded the following information about you: Temperature Pulse Blood pressure 97.1 degrees 84/minute 127/61 Rafaela Baum APRN.CNP 06/17/2024 5:06 PM Signed COLORECTAL SURGERY June 16, 2024 Rodrigue Wallace 74 year old This consult was requested by Dr. Garrido and my final recommendations will be communicated to the requesting health care provider by way of the shared medical record for internal providers or letter via the [employer] for external providers. Chief Complaint: post-op visit History of Present Illness: Rodrigue Wallace is a 74 year old female s/p a Laparoscopic Proctosigmoidectomy (Anterior Resection), Laparoscopic Mobilization of Splenic Flexure, Flexible Sigmoidoscopy on 06/03/[address] Garrido for rectosigmoid cancer. She presents today for her post-op visit with her . Overall she feels great. Minimal residual pain, no longer taking pain medication. She denies fevers and chills, she is eating and drinking without pain or bloating. Bowel movements are soft, brown, nonbloody, denies diarrhea and constipation. Her main concerns today and is the majority of her questions are regarding her recommended chemotherapy course. She and her have several questions regarding her type 1 diabetes, her kidney health, and how this is all related with her recommended chemotherapy regimen. She is unable to obtain a new insulin pump and they plan to hold off on chemotherapy until her diabetes is under better control. We discussed lifting and activity as well as diet recommendations in detail. Surgical Pathology FINAL DIAGNOSIS Left colon and rectum, resection: - Invasive moderately differentiated adenocarcinoma (see synoptic report). - Metastatic adenocarcinoma involving one of twenty-two lymph nodes (10/13). - Submucosal lipoma. - Diverticulosis. Component Ref Range AND Units MMR Interpretation Proficient (Microsatellite Stable) MLH1 Immunohistochemical Results Normal/Intact Nuclear Expression PMS2 Immunohistochemical Results Normal/Intact Nuclear Expression MSH2 Immunohistochemical Results Normal/Intact Nuclear Expression MSH6 Immunohistochemical Results Normal/Intact Nuclear Expression MLH1 Promoter Methylation Assay No Tumor Type Primary Colorectal Adenocarcinoma [facility] Fixative Formalin, 10% Neutral Buffered PAST MEDICAL HISTORY Diagnosis Date Arthritis Diverticulitis Former smoker GERD (gastroesophageal reflux disease) HTN (hypertension) Hypercholesteremia IDDM (insulin dependent diabetes mellitus) Low blood potassium Low iron Low salt syndrome Mental disorder Snoring PAST SURGICAL HISTORY Procedure Laterality Date ANTERIOR DISCECTOMY ARTHROSCOPY KNEE DIAGNOSTIC W/WO SYNOVIAL BX SPX Right 04/11/2010 Arthroscopy, knee BREAST AUGMENTATION WITH IMPLANT 1976 bilateral silicone implants COLONOSCOPY 06/30/2017 Susu- diverticulosis, repeat in 5 years EGD 10/16/2015 PAST SURGICAL HISTORY OF 03/22/2010 pulled abscess tooth: cipro for 10 days. PAST SURGICAL HISTORY OF right shoulder surgery PAST SURGICAL HISTORY OF Left 11/02/2015 arthroplasty base L thumb. PAST SURGICAL HISTORY OF all teeth removed for dentures TOTAL ABDOMINAL HYSTERECT W/WO RMVL TUBE OVARY 1990 RAUL-BSO Current Outpatient Medications Medication Sig Dispense Refill capecitabine (XELODA) 500 mg tablet Take 3 tablets twice daily 2 weeks on, 1 week off. 84 tablet 1 acetaminophen (TYLENOL) 325 mg tablet Take 1 tablet by mouth every 6 hours as needed for pain. enoxaparin (LOVENOX) 40 mg/0.4 mL Inject 0.4 mL subcutaneously every 24 hours for 21 days. 8.4 mL 0 methocarbamol (ROBAXIN) 750 mg tablet Take 1 tablet by mouth every 8 hours as needed (muscle spasm). 15 tablet 0 lactobacillus rhamnosus (CULTURELLE) 10 billion cell capsule Take 1 capsule by mouth once daily. 30 capsule 0 polyethylene glycol 3350 (MIRALAX) 17 gram/dose powder Take 17 g by mouth once daily as needed for constipation. Dissolve dose in 4 - 8 ounces of liquid and take as directed. Psyllium Seed-Sucrose (METAMUCIL, SUGAR,) Take 1 Tablespoonful by mouth once daily as needed. Take as directed. sertraline (ZOLOFT) 100 mg tablet Take 100 mg by mouth once daily. lisinopril (ZESTRIL) 20 mg tablet Take 20 mg by mouth once daily. atorvastatin calcium (ATORVASTATIN ORAL) Take 5 mg by mouth once daily. ergocalciferol, vitamin D2, (VITAMIN D2 ORAL) Take by mouth once daily. fluticasone (FLONASE ALLERGY RELIEF) 50 mcg/actuation nasal spray Use 1 Mobile in each nostril as directed. Nut.Tx.Gluc.Intol,Lac-F ree,Soy (GLUCERNA) liqd Take 8 oz by mouth once (more content not included)... Normal [facility] CNOVSPon 06-15-2024 [facility] Visit ([facility]) Office ([facility]) RODRIGUE WALLACE ([id number]) 1950 F Date Time Provider Department 06/15/24 11:00 AM MELECIO VAZQUEZ During your visit today, we recorded the following information about you: Temperature Pulse Respiration Blood pressure 97.1 degrees 88/minute 16/minute 147/85 Weight Height 65.4 kg 1.6 m Melecio Vazquez MD 06/15/2024 11:37 AM Signed PATIENT NAME: Rodrigue Lange Maurice CLINIC NO.: [id number] ATTENDING PHYSICIAN: Melecio Vazquez MD DATE OF SERVICE: June 15, [address] Jeramy Garrido [id number] [facility] [place] [address] [facility] [address] thank you for referring Rodrigue Wallace for an opinion regarding colon cacner. CHIEF COMPLAINT: colon cancer HPI: Rodrigue Wallace is a 74 year old year old female referred to us for recently diagnosed colon cancer. Sigmoidoscopy 05/20/24 - Malignant tumor in the sigmoid colon. Tattooed. - No specimens collected. Colonoscopy 04/21/24 - Dr. Sandy Cristobal - Likely malignant tumor in the proximal rectum, in the recto-sigmoid colon and in the distal sigmoid colon. Biopsied. - Moderate diverticulosis in the sigmoid colon. There was no evidence of diverticular bleeding. - Diverticulosis in the entire examined colon. - The examined portion of the ileum was normal. Pathology DISTAL SIGMOID COLON MASS, BIOPSY: FRAGMENTS OF INVASIVE ADENOCARCINOMA. MRI rectum 05/17/24 No rectal mass identified. Suspicion of mild wall thickening with minimally restricted diffusion in the sigmoid colon which may represent the tumor. Stage: T1/2 N0 MRF: Clear (tumor margin >2 mm from MRF) Sphincter involvement: No. Suspicious extra mesorectal lymph nodes: No. EMVI: No. CT chest 04/28/24 No intrathoracic lymphadenopathy. Multiple small nonspecific scattered bilateral pulmonary nodules (measuring up to 4 mm in size). Of note, 3 mm and 2 mm most inferiorly located nodules are stable compared with limited images through the lung bases on prior CT imaging of the abdomen and pelvis dated 03/05/2024 and 02/26/2024. Mild stable superior endplate deformity and mild chronic loss of height at L1. No thoracic vertebral body compression deformities. Scattered nonspecific tiny sclerotic foci within multiple bilateral ribs and 7 mm sclerotic lesion along the anterior inferior sternum as described. Suspect small nonspecific osseous lucent lesion within the ninth LEFT lateral rib. CT abdomen/pelvis 03/05/24 Falciform hypodensity focal increased fat, posterior diaphragmatic hernia containing stomach, colonic diverticulosis without diverticulitis s/p Laparoscopic Proctosigmoidectomy (Anterior Resection), Laparoscopic Mobilization of Splenic Flexure, Flexible Sigmoidoscopy with Dr. Garrido on 06/03/2024 for rectosigmoid colon cancer FINAL DIAGNOSIS Left colon and rectum, resection: - Invasive moderately differentiated adenocarcinoma (see synoptic report). - Metastatic adenocarcinoma involving one of twenty-two lymph nodes (10/13). - Submucosal lipoma. - Diverticulosis Clinical Pathologic Stage: pT2 pN1a Mx stage IIIA. MSI intact. Doing well currently. Eating and drinking good. No bowel or urinary complaints. Current Outpatient Medications Medication Sig acetaminophen (TYLENOL) 325 mg tablet Take 1 tablet by mouth every 6 hours as needed for pain. enoxaparin (LOVENOX) 40 mg/0.4 mL Inject 0.4 mL subcutaneously every 24 hours for 21 days. methocarbamol (ROBAXIN) 750 mg tablet Take 1 tablet by mouth every 8 hours as needed (muscle spasm). lactobacillus rhamnosus (CULTURELLE) 10 billion cell capsule Take 1 capsule by mouth once daily. polyethylene glycol 3350 (MIRALAX) 17 gram/dose powder Take 17 g by mouth once daily as needed for constipation. Dissolve dose in 4 - 8 ounces of liquid and take as directed. Psyllium Seed-Sucrose (METAMUCIL, SUGAR,) Take 1 Tablespoonful by mouth once daily as needed. Take as directed. sertraline (ZOLOFT) 100 mg tablet Take 100 mg by mouth once daily. lisinopril (ZESTRIL) 20 mg tablet Take 20 mg by mouth once daily. atorvastatin calcium (ATORVASTATIN ORAL) Take 5 mg by mouth once daily. ergocalciferol, vitamin D2, (VITAMIN D2 ORAL) Take by mouth once daily. fluticasone (FLONASE ALLERGY RELIEF) 50 mcg/actuation nasal spray Use 1 Mobile in each nostril as directed. Nut.Tx.Gluc.Intol,Lac-F ree,Soy (GLUCERNA) liqd Take 8 oz by mouth once daily. iv contrast (will be provided with radiology test) MRI Rectum Inject, intravenously, once for 1 dose. No IV access, insert saline lock prior to the beginning of sedation, infusion, injection of imaging exam. Discontinue saline lock post exam. If Pt has a central line or IVAD, may access for administration according to line specific nursing protocol. Once exam is complete flush line and de-access according to line specific nursing protocol in the MR con (more content not included)... Normal [facility] Efrain 06-15-2024 CNPN Telephone ([facility]) RODRIGUE WALLACE ([id number]) 1950 F Date Time Provider Department 06/15/24 CHIOMA ZHOU [facility] During your visit today, we recorded the following information about you: Chioma Zhou, [facility] 06/15/2024 1:14 PM Addendum Ambulatory Pharmacy Prior Authorization Note Provider Intervention Required?: No- Pharmacy completed on your behalf. Rx Plan: Other: Medicare Part A and B - submitted e-mail to Pharmacy Billing team to enter [employer] Drug: Capecitabine Cover My Meds [place]: N/A Additional Information: Waiting for Pharmacy Billing team to enter [employer] into system for billing: patient should have no co-pay. Patient will need Education scheduled. Will also need to address if patient is still taking Nexium. D/D Interaction with Capecitabine For questions relating to this submission, please contact [facility] at [phone] Janneth Fan RN 06/15/2024 1:29 PM Signed PSS: can you please schedule pt for chemo ed. I'll discuss Nexium with her then. Thanks LAURA Claros Autumn, [facility] 06/15/2024 2:02 PM Signed I have the Patient scheduled for her Chemo Education at 2 pm after her appointment to see Dr. Rivera on 07/06/24. I called and let her know as well and was happy with it. JESUS MANUEL Grajeda Tiffany G, RN 06/15/2024 3:34 PM Signed Thanks Mary. Discussed with Dr Vazquez who states pt just had surgery 2 weeks ago and is still having some discomfort and healing, so he would like to see her in follow up in 3 weeks first before starting Xeloda. Will do education at that visit. Janneth Fan RN Allergies As of Date: 06/15/2024 Noted Allergy Reaction FOSAMAX (ALENDRONATE SODIUM) 11/08/2014 14 - Other: See Comments Comments: Leg cramps, severe MACRODANTIN (NITROFURANTOIN MACRO*05/23/2016 11 - Vomiting PENICILLINS 06/28/2005 9 - Itching Date Reviewed: 06/15/2024 Reviewed by: Griselda Bernal MA - Fully Assessed Reason for Visit: Medication Update [4695] Cmt: Capecitabine Prescriptions as of 06/17/2024 - capecitabine (XELODA) 500 mg tablet Take 3 tablets twice daily 2 weeks on, 1 week off. - acetaminophen (TYLENOL) 325 mg tablet Take 1 tablet by mouth every 6 hours as needed for pain. - enoxaparin (LOVENOX) 40 mg/0.4 mL Inject 0.4 mL subcutaneously every 24 hours for 21 days. - methocarbamol (ROBAXIN) 750 mg tablet Take 1 tablet by mouth every 8 hours as needed (muscle spasm). - lactobacillus rhamnosus (CULTURELLE) 10 billion cell capsule Take 1 capsule by mouth once daily. - polyethylene glycol 3350 (MIRALAX) 17 gram/dose powder Take 17 g by mouth once daily as needed for constipation. Dissolve dose in 4 - 8 ounces of liquid and take as directed. - Psyllium Seed-Sucrose (METAMUCIL, SUGAR,) Take 1 Tablespoonful by mouth once daily as needed. Take as directed. - sertraline (ZOLOFT) 100 mg tablet Take 100 mg by mouth once daily. - lisinopril (ZESTRIL) 20 mg tablet Take 20 mg by mouth once daily. - atorvastatin calcium (ATORVASTATIN ORAL) Take 5 mg by mouth once daily. - ergocalciferol, vitamin D2, (VITAMIN D2 ORAL) Take by mouth once daily. - fluticasone (FLONASE ALLERGY RELIEF) 50 mcg/actuation nasal spray Use 1 Mobile in each nostril as directed. - Nut.Tx.Gluc.Intol,Lac-F ree,Soy (GLUCERNA) liqd Take 8 oz by mouth once daily. - iv contrast (will be provided with radiology test) MRI Rectum Inject, intravenously, once for 1 dose. No IV access, insert saline lock prior to the beginning of sedation, infusion, injection of imaging exam. Discontinue saline lock post exam. If Pt has a central line or IVAD, may access for administration according to line specific nursing protocol. Once exam is complete flush line and de-access according to line specific nursing protocol in the MR contrast administration guidelines link. - enteric contrast (will be provided with radiology test) MRI RECTUM WO/W. Administer, As Directed One Time Only, via Oral, Rectal, both Oral and Rectal, Enteric Tube, Stoma or Indwelling Catheter,? Enteric Contrast as designated per enteric contrast guidelines - lactose-reduced food (ENSURE CLEAR ORAL) Take by mouth once daily. - ferrous sulfate 325 mg (65 mg iron) tablet Take 1 tablet by mouth. - rosuvastatin (CRESTOR) 5 mg tablet - coenzyme Q10 30 mg capsule Take 30 mg by mouth. - amLODIPine (NORVASC) 10 mg tablet - NOVOLOG U-100 INSULIN ASPART 100 unit/mL Use via insulin pump, 30 units daily - cholecalciferol (VITAMIN D3) 1,000 unit tab Take 2 tablets by mouth once daily. - esomeprazole (NEXIUM) 40 mg capsule Take 1 capsule by mouth once daily. - mometasone (NASONEX) 50 mcg/actuation nasal spray Use 2 Sprays in the nose once daily. - Aspirin 81 mg ORAL Tab Take one(1) tablet daily. Meds Comments as of 11/08/2014: - Problem List As Of Date 06/15/2024 (more content not included)... Normal [facility] Basic metabolic 2000 panelon 06-06-2024 Anion gap [Moles/Vol] 7 mmol/L Low 8-15 [facility] Comment on above: Order Comment: Speci men Type: TISSUE SPECIMEN Ordering Facility: [facility] Address: [address] [place] [address] Performed By: #### S #### [facility] CLIA [id number] [address] [place] [address] [place] #### [id number] #### [facility] CLIA [id number] [address] [place], [place] [address] [place] [address] [place] Calcium [Mass/Vol] 8.6 mg/dL Normal 8.5-10.2 [facility] Comment on above: Order Comment: Specwilliam seo Type: TISSUE SPECIMEN Ordering Facility: [facility] Address: [address] [place] [address] Performed By: #### S #### [facility] CLIA [id number] [address] [place] [address] [place] #### [id number] #### [facility] CLIA [id number] [address] [place] [address] [place] Chloride [Moles/Vol] 96 mmol/L Low 98-107 [facility] Comment on above: Order Comment: Speci men Type: TISSUE SPECIMEN Ordering Facility: [facility] Address: [address] [place] [address] Performed By: #### S #### [facility] CLIA [id number] [address] [place] [address] [place] #### [id number] #### [facility] CLIA [id number] [address] [place] [address] [place] CO2 [Moles/Vol] 33 mmol/L High 22-30 [facility] Comment on above: Order Comment: Speci men Type: TISSUE SPECIMEN Ordering Facility: [facility] Address: [address] [place] [address] Performed By: #### S #### [facility] CLIA [id number] [address] [place] [address] [place] #### [id number] #### [facility] CLIA [id number] [address] [place] [address] [place] Creatinine [Mass/Vol] 0.41 mg/dL Low 0.58-0.96 [facility] Comment on above: Order Comment: Speci men Type: TISSUE SPECIMEN Ordering Facility: [facility] Address: [address] [place] [address] Performed By: #### S #### [facility] CLIA [id number] [address] [place] [address] [place] #### [id number] #### [facility] CLIA [id number] [address] [place] [address] [place] Creatinine and Glomerular filtration rate.predicted panel (S/P/Bld) 104 mL/min/1.73m??? Normal >=60 [facility] Comment on above: Order Comment: Rikki seo Type: TISSUE SPECIMEN Ordering Facility: [facility] Address: [address] [place] [address] Result Comment: Ludy mated Glomerular Filtration Rate (eGFR) is calculated using the 2020 CKD-EPI creatinine equation. This equation utilizes serum creatinine, sex, and age as parameters. The creatinine assay has traceable calibration to isotope dilution-mass spectrometry. Refer to KDIGO guidelines for clinical interpretation. In patients with unstable renal function, e.g. those with acute kidney injury, the eGFR may not accurately reflect actual GFR. Performed By: #### S #### [facility] CLIA [id number] [address] [place] [address] [place] #### [id number] #### [facility] CLIA [id number] [address] [place], [place] [address] [place] [address] [place] Glucose [Mass/Vol] 163 mg/dL High 74-99 [facility] Comment on above: Order Comment: Rikki seo Type: TISSUE SPECIMEN Ordering Facility: [facility] Address: [address] [place] [address] Result Comment: The [place] Diabetes [employer] (ADA) provides guidance for cutoff values for fasting glucose and random glucose. The ADA defines fasting as no caloric intake for at least 8 hours. Fasting plasma glucose results between 100 to 125 mg/dL indicate increased risk for diabetes (prediabetes). Fasting plasma glucose results greater than or equal to 126 mg/dL meet the criteria for diagnosis of diabetes. In the absence of unequivocal hyperglycemia, results should be confirmed by repeat testing. In a patient with classic symptoms of hyperglycemia or hyperglycemic crisis, random plasma glucose results greater than or equal to 200 mg/dL meet the criteria for diagnosis of diabetes. Reference: Standards of Medical Care in Diabetes 2016, [place] [employer]. Diabetes Care. 2016.39(Suppl 1). Performed By: #### S #### [facility] CLIA [id number] [address] [place] [address] [place] #### [id number] #### [facility] CLIA [id number] [address] [place] [address] [place] Potassium [Moles/Vol] 3.5 mmol/L Low 3.7-5.1 [facility] Comment on above: Order Comment: Speci men Type: TISSUE SPECIMEN Ordering Facility: [facility] Address: [address] [place] [address] Performed By: #### S #### [facility] CLIA [id number] [address] [place] [address] [place] #### [id number] #### [facility] CLIA [id number] [address] [place] [address] [place] Sodium [Moles/Vol] 136 mmol/L Normal 136-144 [facility] Comment on above: Order Comment: Speci men Type: TISSUE SPECIMEN Ordering Facility: [facility] Address: [address] [place] [address] Performed By: #### S #### [facility] CLIA [id number] [address] [place] [address] [place] #### [id number] #### [facility] CLIA [id number] [address] [place] [address] [place] Urea nitrogen [Mass/Vol] 5 mg/dL Low 7-21 [facility] Comment on above: Order Comment: Speci men Type: TISSUE SPECIMEN Ordering Facility: [facility] Address: [address] [place] [address] Performed By: #### S #### [facility] CLIA [id number] [address] [place] [address] [place] #### [id number] #### [facility] CLIA [id number] [address] [place] [address] [place] CBC W Auto Differential pane l (Bld)on 06-06-2024 Basophils (Bld) [#/Vol] 10*3/uL Normal <0.11 [facility] Comment on above: Order Comment: Speci men Type: TISSUE SPECIMEN Ordering Facility: [facility] Address: [address] [place] [address] Performed By: #### S #### [facility] CLIA [id number] [address] [place] [address] [place] #### [id number] #### [facility] CLIA [id number] [address] [place] [address] [place] Basophils/100 WBC (Bld) 0.3 % Normal [facility] Comment on above: Order Comment: Speci men Type: TISSUE SPECIMEN Ordering Facility: [facility] Address: [address] [place] [address] Performed By: #### S #### [facility] CLIA [id number] [address] [place] [address] [place] #### [id number] #### [facility] CLIA [id number] [address] [place] [address] [place] Differential cell count method Nom (Bld) Auto Normal [facility] Comment on above: Order Comment: Speci men Type: TISSUE SPECIMEN Ordering Facility: [facility] Address: [address] [place] [address] Performed By: #### S #### [facility] CLIA [id number] [address] [place] [address] [place] #### [id number] #### [facility] CLIA [id number] [address] [place] [address] [place] Eosinophils (Bld) [#/Vol] 0.27 10*3/uL Normal <0.46 [facility] Comment on above: Order Comment: Speci men Type: TISSUE SPECIMEN Ordering Facility: [facility] Address: [address] [place] [address] Performed By: #### S #### [facility] CLIA [id number] [address] [place] [address] [place] #### [id number] #### [facility] CLIA [id number] [address] [place] [address] [place] Eosinophils/100 WBC (Bld) 3.4 % Normal [facility] Comment on above: Order Comment: Speci men Type: TISSUE SPECIMEN Ordering Facility: [facility] Address: [address] [place] [address] Performed By: #### S #### [facility] CLIA [id number] [address] [place] [address] [place] #### [id number] #### [facility] CLIA [id number] [address] [place] [address] [place] Erythrocyte distribution width (RBC) [Ratio] 16.0 % High 11.5-15.0 [facility] Comment on above: Order Comment: Speci men Type: TISSUE SPECIMEN Ordering Facility: [facility] Address: [address] [place] [address] Performed By: #### S #### [facility] CLIA [id number] [address] [place] [address] [place] #### [id number] #### [facility] CLIA [id number] [address] [place] [address] [place] Hematocrit (Bld) [Volume fraction] 25.2 % Low 36.0-46.0 [facility] Comment on above: Order Comment: Speci men Type: TISSUE SPECIMEN Ordering Facility: [facility] Address: [address] [place] [address] Performed By: #### S #### [facility] CLIA [id number] [address] [place] [address] [place] #### [id number] #### [facility] CLIA [id number] [address] [place] [address] [place] Hemoglobin (Bld) [Mass/Vol] 8.0 g/dL Low 11.5-15.5 [facility] Comment on above: Order Comment: Speci men Type: TISSUE SPECIMEN Ordering Facility: [facility] Address: [address] [place] [address] Performed By: #### S #### [facility] CLIA [id number] [address] [place] [address] [place] #### [id number] #### [facility] CLIA [id number] [address] [place] [address] [place] Immature granulocytes (Bld) [#/Vol] 0.04 10*3/uL Normal <0.10 [facility] Comment on above: Order Comment: Speci men Type: TISSUE SPECIMEN Ordering Facility: [facility] Address: [address] [place] [address] Performed By: #### S #### [facility] CLIA [id number] [address] [place] [address] [place] #### [id number] #### [facility] CLIA [id number] [address] [place] [address] [place] Immature granulocytes/100 WBC (Bld) 0.5 % Normal [facility] Comment on above: Order Comment: Speci men Type: TISSUE SPECIMEN Ordering Facility: [facility] Address: [address] [place] [address] Performed By: #### S #### [facility] CLIA [id number] [address] [place] [address] [place] #### [id number] #### [facility] CLIA [id number] [address] [place] [address] [place] Lymphocytes (Bld) [#/Vol] 1.71 10*3/uL Normal 1.00-4.00 [facility] Comment on above: Order Comment: Speci men Type: TISSUE SPECIMEN Ordering Facility: [facility] Address: [address] [place] [address] Performed By: #### S #### [facility] CLIA [id number] [address] [place] [address] [place] #### [id number] #### [facility] CLIA [id number] [address] [place] [address] [place] Lymphocytes/100 WBC (Bld) 21.7 % Normal [facility] Comment on above: Order Comment: Speci men Type: TISSUE SPECIMEN Ordering Facility: [facility] Address: [address] [place] [address] Performed By: #### S #### [facility] CLIA [id number] [address] [place] [address] [place] #### [id number] #### [facility] CLIA [id number] [address] [place] [address] [place] MCH (RBC) [Entitic mass] 26.1 pg Normal 26.0-34.0 [facility] Comment on above: Order Comment: Speci men Type: TISSUE SPECIMEN Ordering Facility: [facility] Address: [address] [place] [address] Performed By: #### S #### [facility] CLIA [id number] [address] [place] [address] [place] #### [id number] #### [facility] CLIA [id number] [address] [place] [address] [place] MCHC (RBC) [Mass/Vol] 31.7 g/dL Normal 30.5-36.0 [facility] Comment on above: Order Comment: Speci men Type: TISSUE SPECIMEN Ordering Facility: [facility] Address: [address] [place] [address] Performed By: #### S #### [facility] CLIA [id number] [address] [place] [address] [place] #### [id number] #### [facility] CLIA [id number] [address] [place] [address] [place] MCV (RBC) [Entitic vol] 82.1 fL Normal 80.0-100.0 [facility] Comment on above: Order Comment: Speci men Type: TISSUE SPECIMEN Ordering Facility: [facility] Address: [address] [place] [address] Performed By: #### S #### [facility] CLIA [id number] [address] [place] [address] [place] #### [id number] #### [facility] CLIA [id number] [address] [place] [address] [place] Monocytes (Bld) [#/Vol] 0.47 10*3/uL Normal <0.87 [facility] Comment on above: Order Comment: Speci men Type: TISSUE SPECIMEN Ordering Facility: [facility] Address: [address] [place] [address] Performed By: #### S #### [facility] CLIA [id number] [address] [place] [address] [place] #### [id number] #### [facility] CLIA [id number] [address] [place] [address] [place] Monocytes/100 WBC (Bld) 6.0 % Normal [facility] Comment on above: Order Comment: Speci men Type: TISSUE SPECIMEN Ordering Facility: [facility] Address: [address] [place] [address] Performed By: #### S #### [facility] CLIA [id number] [address] [place] [address] [place] #### [id number] #### [facility] CLIA [id number] [address] [place] [address] [place] Neutrophils (Bld) [#/Vol] 5.36 10*3/uL Normal 1.45-7.50 [facility] Comment on above: Order Comment: Speci men Type: TISSUE SPECIMEN Ordering Facility: [facility] Address: [address] [place] [address] Performed By: #### S #### [facility] CLIA [id number] [address] [place] [address] [place] #### [id number] #### [facility] CLIA [id number] [address] [place] [address] [place] Neutrophils/100 WBC (Bld) 68.1 % Normal [facility] Comment on above: Order Comment: Speci men Type: TISSUE SPECIMEN Ordering Facility: [facility] Address: [address] [place] [address] Performed By: #### S #### [facility] CLIA [id number] [address] [place] [address] [place] #### [id number] #### [facility] CLIA [id number] [address] [place] [address] [place] Nucleated RBC (Bld) [#/Vol] 10*3/uL Normal <0.01 [facility] Comment on above: Order Comment: Speci men Type: TISSUE SPECIMEN Ordering Facility: [facility] Address: [address] [place] [address] Performed By: #### S #### [facility] CLIA [id number] [address] [place] [address] [place] #### [id number] #### [facility] CLIA [id number] [address] [place] [address] [place] Nucleated RBC/100 WBC (Bld) [Ratio] 0.0 /100 WBC Normal [facility] Comment on above: Order Comment: Speci men Type: TISSUE SPECIMEN Ordering Facility: [facility] Address: [address] [place] [address] Performed By: #### S #### [facility] CLIA [id number] [address] [place] [address] [place] #### [id number] #### [facility] CLIA [id number] [address] [place] [address] [place] Platelet mean volume (Bld) [Entitic vol] 10.3 fL Normal 9.0-12.7 [facility] Comment on above: Order Comment: Speci men Type: TISSUE SPECIMEN Ordering Facility: [facility] Address: [address] [place] [address] Performed By: #### S #### [facility] CLIA [id number] [address] [place] [address] [place] #### [id number] #### [facility] CLIA [id number] [address] [place] [address] [place] Platelets (Bld) [#/Vol] 240 10*3/uL Normal 150-400 [facility] Comment on above: Order Comment: Speci men Type: TISSUE SPECIMEN Ordering Facility: [facility] Address: [address] [place] [address] Performed By: #### S #### [facility] CLIA [id number] [address] [place] [address] [place] #### [id number] #### [facility] CLIA [id number] [address] [place] [address] [place] RBC (Bld) [#/Vol] 3.07 10*6/uL Low 3.90-5.20 [facility] Comment on above: Order Comment: Speci men Type: TISSUE SPECIMEN Ordering Facility: [facility] Address: [address] [place] [address] Performed By: #### S #### [facility] CLIA [id number] [address] [place] [address] [place] #### [id number] #### [facility] CLIA [id number] [address] [place] [address] [place] WBC (Bld) [#/Vol] 7.87 10*3/uL Normal 3.70-11.00 [facility] Comment on above: Order Comment: Speci men Type: TISSUE SPECIMEN Ordering Facility: [facility] Address: [address] [place] [address] Performed By: #### S #### [facility] CLIA [id number] [address] [place], [place] [address] [facility] [place] #### [id number] #### [facility] CLIA [id number] [address] [facility] [address] [id number] [id number] [facility] Sascha 06-06-2024 [facility] HNO ID: [id number] Author: MONIE CASTILLO MD Service: Colorectal Author Type: Nurse Practitioner Type: Discharge Summary Filed: 06/21/2024 10:30 Note Text: Attestation signed by Monie Castillo MD at 06/21/2024 10:30 AM I evaluated the patient and personally participated in the pompa components. I agree with the resident's findings and plan as documented and have discussed the case and management of the patient's care with the resident. Signature: Monie Castillo MD GENERAL SURGERY DISCHARGE SUMMARY PATIENT NAME: Rodrigue Wallace ADMISSION DATE: 06/03/2024 DISCHARGE DATE: 06/06/2024 ATTENDING PHYSICIAN: Jeramy Garrido MD Code Status: Not on file Highest Readmission Risk Score: 12 The 30 day readmissions risk score is derived from an internally validated risk model which evaluates patient level characteristics, utilization history, medication orders and lab results up until the day of discharge. Patients with a score of 40 or above are considered highest risk for readmission. Specific patient level drivers will be listed at the bottom of the summary. REASON FOR HOSPITALIZATION: Principal Problem: Rectal cancer (HCC) (POA: Yes) Active Problems: Colon cancer (HCC) (POA: Yes) Malnutrition of mild degree (HCC) (POA: Yes) Resolved Problems: * No resolved hospital problems. * OPERATIONS DURING HOSPITALIZATION: 06/03/24 - Laparoscopic hand-assisted left colectomy with colorectal anastomosis and flexible sigmoidoscopy HOSPITAL COURSE: Rodrigue Wallace is a 74 year old female with PMHx of HTN, HLD, T1DM, GERD, diverticulitis, spinal stenosis, osteoporosis, and hiatal hernia who was recently found to have rectosigmoid adenocarcinoma on diagnostic colonoscopy performed 04/21/24 for iron deficiency anemia. She presented 06/03/24 for elective oncologic resection and underwent laparoscopic hand-assisted left colectomy with colorectal anastomosis and flexible sigmoidoscopy with Dr. Garrido. There were no intraoperative complications. She was transferred to the regular nursing floor for ongoing recovery. Postoperatively, she remained afebrile and hemodynamically stable. Her pain was well controlled with initial use of [employer] prior to transition to PO medications by the day of discharge. Her diet was advanced to GI soft diet upon return of bowel function and tolerated. She was voiding spontaneously following Siddiqui catheter removal on POD 1. Endocrinology was consulted while admitted for management of insulin pump, with adjustment made to basal rate insulin. DVT US of left lower extremity was obtained prior to discharge given mild left lower extremity swelling and was negative for proximal DVT. Her labs remained stable. She was stable for discharge home on 06/06/24. She will be discharged on 21-day course of Lovenox and will follow up in [address] Garrido's office. Colectomy SSI Bundle Reporting: Was this an elective case: Yes Which of the following did the patient complete pre-operatively? Mechanical Bowel Prep Only and CHG wash or wipes Active Hospital Problems Diagnosis Date Noted Rectal cancer (HCC) 06/03/2024 Malnutrition of mild degree (HCC) 06/04/2024 Colon cancer (HCC) 06/03/2024 Resolved Hospital Problems No resolved problems to display. Transitions of Care Critical Issues: POMPA MEDICATION CHANGES: Lovenox daily - 21 day course LABS AND PROCEDURES PENDING AT DISCHARGE: Pathology Results (Intraoperative pathology) CONSULTING TEAMS DURING HOSPITALIZATION: Endocrinology, Nutrition Treatment Team: Attending Provider: Jeramy Garrido MD Consulting: Jeramy Dsouza MD PATIENT CONDITION AT DISCHARGE: Stable DISCHARGE DISPOSITION: Home with Self Care INFORMATION PROVIDED TO PATIENT: Patient given copy of discharge instructions Home Going Instructions Symptoms or health problems to watch for after I leave the hospital: -Increasing abdominal pain or swelling unrelieved by rest, medication, and ice. -Severe or unrelenting nausea or vomiting. -Fever greater than 101.5?F (38.6?C) or chills. -Unable to take in liquids or solid foods for greater than 24 hours. -Unusual drainage coming from the incision or any increased redness or warmth around the incision. -Shortness of breath. -Chest pain. -Racing heartbeat. -Difficulty urinating. -Bloody, dark, or tarry stool. For these or any other concerning symptom, please call immediately for advice GI Soft Diet: Food Groups Foods Allowed Foods to Avoid Meats and meat substitutes Chicken, turkey, fish, tender cuts of beef and pork, ground meats, eggs, creamy nut butters, tofu, skinless hot dogs, sausage patties without whole spices Tough fibrous meats with gristle, meat with casings (hot dogs, sausage, kielbasa), lunch meats wi (more content not included)... [facility] CONSULT PROGon 06-06-2024 CONSULT PROG HNO ID: [id number] Author: JERAMY DSOUZA MD Service: Endocrinology Author Type: Physician Type: Consult Progress Note Filed: 06/06/2024 12:10 Note Text: Assessment / Plan Assessment: 1) Diabetes type 1 on insulin pump, not in closed loop with her Dexcom sensor.Sugars ok now for discharge, she has [employer] that is local and will follow her. Treatment / Plan: 1) no change in insulin pump settings 2) ok for discharge from Endocrine perspective Jeramy Dsouza MD Data History Diabetes : type 1 on Medtronic insulin pump, about 3 months till expiration of warranty and then plans to switch to [employer] has Dexcom sensor pain now well controlled, she and happy with current plan [facility] NURSING PROGon 06-06-2024 NURSING PROG HNO ID: [id number] Author: ARDEN MARTINEZ RN Service: Nursing Author Type: Registered Nurse Type: Nursing Progress Note Filed: 06/06/2024 13:31 Note Text: Other: Reviewed last minute prescriptions and medications with patient, who verbalized good understanding. Reprinted and provided new discharge sheets. Normal [facility] NURSING PROG HNO ID: [id number] Author: ARDEN MARTINEZ RN Service: Nursing Author Type: Registered Nurse Type: Nursing Progress Note Filed: 06/06/2024 13:25 Note Text: Other: Patient is ok for discharge to home. Telemetry and continuous POx removed. Right arm angio cath removed and intact. Discharge instructions, medications, prescriptions, and follow up appointments reviewed with patient and spouse and both verbalize good understanding. Patient and spouse verbalize good understanding of self Lovenox injections as they have done them in past. All belongings gathered. Will leave floor via wheelchair with patient transport. Normal [facility] US DVT LOWER LTon 06-06-2024 US DVT LOWER LT * * *Final Report* * * DATE OF EXAM: Jun 06 2024 9:57AM FVU 1006 - US DVT LOWER LT / PROCEDURE REASON: Leg swelling * * * * Physician Interpretation * * * * EXAMINATION: LEFT LOWER EXTREMITY DEEP VENOUS ULTRASOUND WITH DOPPLER IMAGING CLINICAL HISTORY: TECHNIQUE: Grayscale with compression maneuvers, color Doppler and spectral Doppler imaging of the left proximal deep veins was performed. Grayscale with compression maneuvers of the peroneal and posterior tibial veins was performed. The left great and small saphenous veins were evaluated at their insertion to the deep system. The contralateral common femoral vein was imaged for comparison. Images were obtained and stored in a permanent archive. MQ: [id number] COMPARISON: None RESULT: LEFT LOWER EXTREMITY PROXIMAL DEEP VEINS Distal External Iliac, Common Femoral and proximal Profunda Veins: Compression: Normal Doppler: Normal, spontaneous respirophasic flow. Normal response to augmentation. Femoral vein: Compression: Normal Doppler: Normal, spontaneous flow. Normal response to augmentation. Popliteal vein: Compression: Normal Doppler: Normal, spontaneous flow. Normal response to augmentation. CALF DEEP VEINS Peroneal veins: Not identified. Posterior tibial veins: Not identified. Gastrocnemius and Soleal veins: Not imaged. SUPERFICIAL VEINS Great saphenous: Patent and compressible at insertion into common femoral vein; not otherwise assessed. Small Saphenous: Patent and compressible in the proximal calf, not otherwise assessed. RIGHT LOWER EXTREMITY (FOR COMPARISON) Common Femoral Vein: Compression: Normal Doppler: Normal, spontaneous respirophasic flow. Normal response to augmentation. IMPRESSION: Negative study for proximal DVT in the left lower extremity. Nondiagnostic study for calf DVT in the left lower extremity. Negative study for superficial thrombophlebitis in the imaged segments of the left lower extremity. Contact Officer: PSCSandeep Transcribe Date/Time: Jun 06 2024 10:33A Dictated by : ADDIS MAGALLANES MD This examination was interpreted and the report reviewed and electronically signed by: ADDIS MAGALLANES MD on Jun 06 2024 10:34AM EST [id number] Normal [facility] Basic metabolic 2000 panelon 06-05-2024 Anion gap [Moles/Vol] 5 mmol/L Low 8-15 [facility] Comment on above: Order Comment: Speci men Type: TISSUE SPECIMEN Ordering Facility: [facility] Address: [address] [place] [address] Performed By: #### S #### [facility] CLIA [id number] [address] [place] [address] [place] #### [id number] #### [facility] CLIA [id number] [address] [place] [address] [place] Calcium [Mass/Vol] 8.3 mg/dL Low 8.5-10.2 [facility] Comment on above: Order Comment: Speci men Type: TISSUE SPECIMEN Ordering Facility: [facility] Address: [address] [place] [address] Performed By: #### S #### [facility] CLIA [id number] [address] [place] [address] [place] #### [id number] #### [facility] CLIA [id number] [address] [place] [address] [place] Chloride [Moles/Vol] 98 mmol/L Normal 98-107 [facility] Comment on above: Order Comment: Speci men Type: TISSUE SPECIMEN Ordering Facility: [facility] Address: [address] [place] [address] Performed By: #### S #### [facility] CLIA [id number] [address] [place] [address] [place] #### [id number] #### [facility] CLIA [id number] [address] [place] [address] [place] CO2 [Moles/Vol] 31 mmol/L High 22-30 [facility] Comment on above: Order Comment: Speci men Type: TISSUE SPECIMEN Ordering Facility: [facility] Address: [address] [place] [address] Performed By: #### S #### [facility] CLIA [id number] [address] [place] [address] [place] #### [id number] #### [facility] CLIA [id number] [address] [place] [address] [place] Creatinine [Mass/Vol] 0.42 mg/dL Low 0.58-0.96 [facility] Comment on above: Order Comment: Speci men Type: TISSUE SPECIMEN Ordering Facility: [facility] Address: [address] [place] [address] Performed By: #### S #### [facility] CLIA [id number] [address] [place] [address] [place] #### [id number] #### [facility] CLIA [id number] [address] [place] [address] [place] Creatinine and Glomerular filtration rate.predicted panel (S/P/Bld) 103 mL/min/1.73m??? Normal >=60 [facility] Comment on above: Order Comment: Speci men Type: TISSUE SPECIMEN Ordering Facility: [facility] Address: [address] [place] [address] Result Comment: Ludy mated Glomerular Filtration Rate (eGFR) is calculated using the 2020 CKD-EPI creatinine equation. This equation utilizes serum creatinine, sex, and age as parameters. The creatinine assay has traceable calibration to isotope dilution-mass spectrometry. Refer to KDIGO guidelines for clinical interpretation. In patients with unstable renal function, e.g. those with acute kidney injury, the eGFR may not accurately reflect actual GFR. Performed By: #### S #### [facility] CLIA [id number] [address] [place] [address] [place] #### [id number] #### [facility] CLIA [id number] [address] [place] [address] [place] Glucose [Mass/Vol] 106 mg/dL High 74-99 [facility] Comment on above: Order Comment: Speci men Type: TISSUE SPECIMEN Ordering Facility: [facility] Address: [address] [place] [address] Result Comment: The [place] [employer] (ADA) provides guidance for cutoff values for fasting glucose and random glucose. The ADA defines fasting as no caloric intake for at least 8 hours. Fasting plasma glucose results between 100 to 125 mg/dL indicate increased risk for diabetes (prediabetes). Fasting plasma glucose results greater than or equal to 126 mg/dL meet the criteria for diagnosis of diabetes. In the absence of unequivocal hyperglycemia, results should be confirmed by repeat testing. In a patient with classic symptoms of hyperglycemia or hyperglycemic crisis, random plasma glucose results greater than or equal to 200 mg/dL meet the criteria for diagnosis of diabetes. Reference: Standards of Medical Care in Diabetes 2016, [place] [employer]. Diabetes Care. 2016.39(Suppl 1). Performed By: #### S #### [facility] CLIA [id number] [address] [place] [address] [place] #### [id number] #### [facility] CLIA [id number] [address] [place] [address] [place] Potassium [Moles/Vol] 3.8 mmol/L Normal 3.7-5.1 [facility] Comment on above: Order Comment: Speci men Type: TISSUE SPECIMEN Ordering Facility: [facility] Address: [address] [place] [address] Performed By: #### S #### [facility] CLIA [id number] [address] [place] [address] [place] #### [id number] #### [facility] CLIA [id number] [address] [place] [address] [place] Sodium [Moles/Vol] 134 mmol/L Low 136-144 [facility] Comment on above: Order Comment: Speci men Type: TISSUE SPECIMEN Ordering Facility: [facility] Address: [address] [place] [address] Performed By: #### S #### [facility] CLIA [id number] [address] [place] [address] [place] #### [id number] #### [facility] CLIA [id number] [address] [place] [address] [place] Urea nitrogen [Mass/Vol] 6 mg/dL Low 7-21 [facility] Comment on above: Order Comment: Speci men Type: TISSUE SPECIMEN Ordering Facility: [facility] Address: [address] [place] [address] Performed By: #### S #### [facility] CLIA [id number] [address] [place] [address] [place] #### [id number] #### [facility] CLIA [id number] [address] [place] [address] [place] CBC W Auto Differential pane l (Bld)on 06-05-2024 Basophils (Bld) [#/Vol] 10*3/uL Normal <0.11 [facility] Comment on above: Order Comment: Speci men Type: TISSUE SPECIMEN Ordering Facility: [facility] Address: [address] [place] [address] Performed By: #### S #### [facility] CLIA [id number] [address] [place] [address] [place] #### [id number] #### [facility] CLIA [id number] [address] [place] [address] [place] Basophils/100 WBC (Bld) 0.3 % Normal [facility] Comment on above: Order Comment: Speci men Type: TISSUE SPECIMEN Ordering Facility: [facility] Address: [address] [place] [address] Performed By: #### S #### [facility] CLIA [id number] [address] [place] [address] [place] #### [id number] #### [facility] CLIA [id number] [address] [place] [address] [place] Differential cell count method Nom (Bld) Auto Normal [facility] Comment on above: Order Comment: Speci men Type: TISSUE SPECIMEN Ordering Facility: [facility] Address: [address] [place] [address] Performed By: #### S #### [facility] CLIA [id number] [address] [place] [address] [place] #### [id number] #### [facility] CLIA [id number] [address] [place] [address] [place] Eosinophils (Bld) [#/Vol] 0.23 10*3/uL Normal <0.46 [facility] Comment on above: Order Comment: Speci men Type: TISSUE SPECIMEN Ordering Facility: [facility] Address: [address] [place] [address] Performed By: #### S #### [facility] CLIA [id number] [address] [place] [address] [place] #### [id number] #### [facility] CLIA [id number] [address] [place] [address] [place] Eosinophils/100 WBC (Bld) 3.1 % Normal [facility] Comment on above: Order Comment: Speci men Type: TISSUE SPECIMEN Ordering Facility: [facility] Address: [address] [place] [address] Performed By: #### S #### [facility] CLIA [id number] [address] [place] [address] [place] #### [id number] #### [facility] CLIA [id number] [address] [place] [address] [place] Erythrocyte distribution width (RBC) [Ratio] 15.8 % High 11.5-15.0 [facility] Comment on above: Order Comment: Speci men Type: TISSUE SPECIMEN Ordering Facility: [facility] Address: [address] [place] [address] Performed By: #### S #### [facility] CLIA [id number] [address] [place] [address] [place] #### [id number] #### [facility] CLIA [id number] [address] [place] [address] [place] Hematocrit (Bld) [Volume fraction] 24.3 % Low 36.0-46.0 [facility] Comment on above: Order Comment: Speci men Type: TISSUE SPECIMEN Ordering Facility: [facility] Address: [address] [place] [address] Performed By: #### S #### [facility] CLIA [id number] [address] [place] [address] [place] #### [id number] #### [facility] CLIA [id number] [address] [place] [address] [place] Hemoglobin (Bld) [Mass/Vol] 7.9 g/dL Low 11.5-15.5 [facility] Comment on above: Order Comment: Speci men Type: TISSUE SPECIMEN Ordering Facility: [facility] Address: [address] [place] [address] Performed By: #### S #### [facility] CLIA [id number] [address] [place] [address] [place] #### [id number] #### [facility] CLIA [id number] [address] [place] [address] [place] Immature granulocytes (Bld) [#/Vol] 10*3/uL Normal <0.10 [facility] Comment on above: Order Comment: Speci men Type: TISSUE SPECIMEN Ordering Facility: [facility] Address: [address] [place] [address] Performed By: #### S #### [facility] CLIA [id number] [address] [place] [address] [place] #### [id number] #### [facility] CLIA [id number] [address] [place] [address] [place] Immature granulocytes/100 WBC (Bld) 0.3 % Normal [facility] Comment on above: Order Comment: Speci men Type: TISSUE SPECIMEN Ordering Facility: [facility] Address: [address] [place] [address] Performed By: #### S #### [facility] CLIA [id number] [address] [place] [address] [place] #### [id number] #### [facility] CLIA [id number] [address] [place] [address] [place] Lymphocytes (Bld) [#/Vol] 1.05 10*3/uL Normal 1.00-4.00 [facility] Comment on above: Order Comment: Speci men Type: TISSUE SPECIMEN Ordering Facility: [facility] Address: [address] [place] [address] Performed By: #### S #### [facility] CLIA [id number] [address] [place] [address] [place] #### [id number] #### [facility] CLIA [id number] [address] [place] [address] [place] Lymphocytes/100 WBC (Bld) 14.2 % Normal [facility] Comment on above: Order Comment: Speci men Type: TISSUE SPECIMEN Ordering Facility: [facility] Address: [address] [place] [address] Performed By: #### S #### [facility] CLIA [id number] [address] [place] [address] [place] #### [id number] #### [facility] CLIA [id number] [address] [place] [address] [place] MCH (RBC) [Entitic mass] 27.0 pg Normal 26.0-34.0 [facility] Comment on above: Order Comment: Speci men Type: TISSUE SPECIMEN Ordering Facility: [facility] Address: [address] [place] [address] Performed By: #### S #### [facility] CLIA [id number] [address] [place] [address] [place] #### [id number] #### [facility] CLIA [id number] [address] [place] [address] [place] MCHC (RBC) [Mass/Vol] 32.5 g/dL Normal 30.5-36.0 [facility] Comment on above: Order Comment: Speci men Type: TISSUE SPECIMEN Ordering Facility: [facility] Address: [address] [place] [address] Performed By: #### S #### [facility] CLIA [id number] [address] [place] [address] [place] #### [id number] #### [facility] CLIA [id number] [address] [place] [address] [place] MCV (RBC) [Entitic vol] 82.9 fL Normal 80.0-100.0 [facility] Comment on above: Order Comment: Speci men Type: TISSUE SPECIMEN Ordering Facility: [facility] Address: [address] [place] [address] Performed By: #### S #### [facility] CLIA [id number] [address] [place] [address] [place] #### [id number] #### [facility] CLIA [id number] [address] [place] [address] [place] Monocytes (Bld) [#/Vol] 0.47 10*3/uL Normal <0.87 [facility] Comment on above: Order Comment: Speci men Type: TISSUE SPECIMEN Ordering Facility: [facility] Address: [address] [place] [address] Performed By: #### S #### [facility] CLIA [id number] [address] [place] [address] [place] #### [id number] #### [facility] CLIA [id number] [address] [place] [address] [place] Monocytes/100 WBC (Bld) 6.3 % Normal [facility] Comment on above: Order Comment: Speci men Type: TISSUE SPECIMEN Ordering Facility: [facility] Address: [address] [place] [address] Performed By: #### S #### [facility] CLIA [id number] [address] [place] [address] [place] #### [id number] #### [facility] CLIA [id number] [address] [place] [address] [place] Neutrophils (Bld) [#/Vol] 5.62 10*3/uL Normal 1.45-7.50 [facility] Comment on above: Order Comment: Speci men Type: TISSUE SPECIMEN Ordering Facility: [facility] Address: [address] [place] [address] Performed By: #### S #### [facility] CLIA [id number] [address] [place] [address] [place] #### [id number] #### [facility] CLIA [id number] [address] [place] [address] [place] Neutrophils/100 WBC (Bld) 75.8 % Normal [facility] Comment on above: Order Comment: Speci men Type: TISSUE SPECIMEN Ordering Facility: [facility] Address: [address] [place] [address] Performed By: #### S #### [facility] CLIA [id number] [address] [place] [address] [place] #### [id number] #### [facility] CLIA [id number] [address] [place] [address] [place] Nucleated RBC (Bld) [#/Vol] 10*3/uL Normal <0.01 [facility] Comment on above: Order Comment: Speci men Type: TISSUE SPECIMEN Ordering Facility: [facility] Address: [address] [place] [address] Performed By: #### S #### [facility] CLIA [id number] [address] [place] [address] [place] #### [id number] #### [facility] CLIA [id number] [address] [place] [address] [place] Nucleated RBC/100 WBC (Bld) [Ratio] 0.0 /100 WBC Normal [facility] Comment on above: Order Comment: Speci men Type: TISSUE SPECIMEN Ordering Facility: [facility] Address: [address] [place] [address] Performed By: #### S #### [facility] CLIA [id number] [address] [place] [address] [place] #### [id number] #### [facility] CLIA [id number] [address] [place] [address] [place] Platelet mean volume (Bld) [Entitic vol] 9.8 fL Normal 9.0-12.7 [facility] Comment on above: Order Comment: Speci men Type: TISSUE SPECIMEN Ordering Facility: [facility] Address: [address] [place] [address] Performed By: #### S #### [facility] CLIA [id number] [address] [place] [address] [place] #### [id number] #### [facility] CLIA [id number] [address] [place] [address] [place] Platelets (Bld) [#/Vol] 228 10*3/uL Normal 150-400 [facility] Comment on above: Order Comment: Speci men Type: TISSUE SPECIMEN Ordering Facility: [facility] Address: [address] [place] [address] Performed By: #### S #### [facility] CLIA [id number] [address] [place] [address] [place] #### [id number] #### [facility] CLIA [id number] [address] [place] [address] [place] RBC (Bld) [#/Vol] 2.93 10*6/uL Low 3.90-5.20 [facility] Comment on above: Order Comment: Speci men Type: TISSUE SPECIMEN Ordering Facility: [facility] Address: [address] [place] [address] Performed By: #### S #### [facility] CLIA [id number] [address] [place] [address] [place] #### [id number] #### [facility] CLIA [id number] [address] [place] [address] [place] WBC (Bld) [#/Vol] 7.41 10*3/uL Normal 3.70-11.00 [facility] Comment on above: Order Comment: Speci men Type: TISSUE SPECIMEN Ordering Facility: [facility] Address: [address] [place] [address] Performed By: #### S #### [facility] IA [id number] [address] [place] [address] [place] #### [id number] #### [facility] CLIA [id number] [address] [place] [address] [place] CBC panel Auto (Bld)on 06-05 Erythrocyte distribution width (RBC) [Ratio] 15.9 % High 11.5-15.0 [facility] Comment on above: Order Comment: Speci men Type: TISSUE SPECIMEN Ordering Facility: [facility] Address: [address] [place] [address] Performed By: #### S #### [facility] CLIA [id number] [address] [place] [address] [place] #### [id number] #### [facility] CLIA [id number] [address] [place] [address] [place] Hematocrit (Bld) [Volume fraction] 24.9 % Low 36.0-46.0 [facility] Comment on above: Order Comment: Speci men Type: TISSUE SPECIMEN Ordering Facility: [facility] Address: [address] [place] [address] Performed By: #### S #### [facility] CLIA [id number] [address] [place] [address] [place] #### [id number] #### [facility] CLIA [id number] [address] [place] [address] [place] Hemoglobin (Bld) [Mass/Vol] 8.1 g/dL Low 11.5-15.5 [facility] Comment on above: Order Comment: Speci men Type: TISSUE SPECIMEN Ordering Facility: [facility] Address: [address] [place] [address] Performed By: #### S #### [facility] CLIA [id number] [address] [place] [address] [place] #### [id number] #### [facility] CLIA [id number] [address] [place] [address] [place] MCH (RBC) [Entitic mass] 26.7 pg Normal 26.0-34.0 [facility] Comment on above: Order Comment: Speci men Type: TISSUE SPECIMEN Ordering Facility: [facility] Address: [address] [place] [address] Performed By: #### S #### [facility] CLIA [id number] [address] [place] [address] [place] #### [id number] #### [facility] CLIA [id number] [address] [place] [address] [place] MCHC (RBC) [Mass/Vol] 32.5 g/dL Normal 30.5-36.0 [facility] Comment on above: Order Comment: Speci men Type: TISSUE SPECIMEN Ordering Facility: [facility] Address: [address] [place] [address] Performed By: #### S #### [facility] CLIA [id number] [address] [place] [address] [place] #### [id number] #### [facility] CLIA [id number] [address] [place] [address] [place] MCV (RBC) [Entitic vol] 82.2 fL Normal 80.0-100.0 [facility] Comment on above: Order Comment: Speci men Type: TISSUE SPECIMEN Ordering Facility: [facility] Address: [address] [place] [address] Performed By: #### S #### [facility] CLIA [id number] [address] [place] [address] [place] #### [id number] #### [facility] CLIA [id number] [address] [place] [address] [place] Nucleated RBC (Bld) [#/Vol] 10*3/uL Normal <0.01 [facility] Comment on above: Order Comment: Speci men Type: TISSUE SPECIMEN Ordering Facility: [facility] Address: [address] [place] [address] Performed By: #### S #### [facility] CLIA [id number] [address] [place] [address] [place] #### [id number] #### [facility] CLIA [id number] [address] [place] [address] [place] Platelet mean volume (Bld) [Entitic vol] 10.3 fL Normal 9.0-12.7 [facility] Comment on above: Order Comment: Speci men Type: TISSUE SPECIMEN Ordering Facility: [facility] Address: [address] [place] [address] Performed By: #### S #### [facility] CLIA [id number] [address] [place] [address] [place] #### [id number] #### [facility] CLIA [id number] [address] [place] [address] [place] Platelets (Bld) [#/Vol] 230 10*3/uL Normal 150-400 [facility] Comment on above: Order Comment: Speci men Type: TISSUE SPECIMEN Ordering Facility: [facility] Address: [address] [place] [address] Performed By: #### S #### [facility] CLIA [id number] [address] [place] [address] [place] #### [id number] #### [facility] CLIA [id number] [address] [place] [address] [place] RBC (Bld) [#/Vol] 3.03 10*6/uL Low 3.90-5.20 [facility] Comment on above: Order Comment: Speci men Type: TISSUE SPECIMEN Ordering Facility: [facility] Address: [address] [place] [address] Performed By: #### S #### [facility] CLIA [id number] [address] [place] [address] [place] #### [id number] #### [facility] CLIA [id number] [address] [place] [address] [place] WBC (Bld) [#/Vol] 11.10 10*3/uL High 3.70-11.00 [facility] Comment on above: Order Comment: Speci men Type: TISSUE SPECIMEN Ordering Facility: [facility] Address: [address] [place] [address] Performed By: #### S #### [facility] CLIA [id number] [address] [place] [address] [place] #### [id number] #### [facility] CLIA [id number] [address] [place] [address] [place] Basic metabolic 2000 panelon 09-13-2024 Anion gap [Moles/Vol] 12 mmol/L Normal 8-15 [facility] Comment on above: Order Comment: Speci men Type: TISSUE SPECIMEN Ordering Facility: [facility] Address: [address] [place] [address] Performed By: #### S #### [facility] CLIA [id number] [address] [place] [address] [place] #### [id number] #### [facility] CLIA [id number] [address] [place] [address] [place] Calcium [Mass/Vol] 8.2 mg/dL Low 8.5-10.2 [facility] Comment on above: Order Comment: Speci men Type: TISSUE SPECIMEN Ordering Facility: [facility] Address: [address] [place] [address] Performed By: #### S #### [facility] CLIA [id number] [address] [place] [address] [place] #### [id number] #### [facility] CLIA [id number] [address] [place] [address] [place] Chloride [Moles/Vol] 96 mmol/L Low 98-107 [facility] Comment on above: Order Comment: Speci men Type: TISSUE SPECIMEN Ordering Facility: [facility] Address: [address] [place] [address] Performed By: #### S #### [facility] CLIA [id number] [address] [place] [address] [place] #### [id number] #### [facility] CLIA [id number] [address] [place] [address] [place] CO2 [Moles/Vol] 23 mmol/L Normal 22-30 [facility] Comment on above: Order Comment: Speci men Type: TISSUE SPECIMEN Ordering Facility: [facility] Address: [address] [place] [address] Performed By: #### S #### [facility] CLIA [id number] [address] [place] [address] [place] #### [id number] #### [facility] CLIA [id number] [address] [place] [address] [place] Creatinine [Mass/Vol] 0.76 mg/dL Normal 0.58-0.96 [facility] Comment on above: Order Comment: Speci men Type: TISSUE SPECIMEN Ordering Facility: [facility] Address: [address] [place] [address] Performed By: #### S #### [facility] CLIA [id number] [address] [place] [address] [place] #### [id number] #### [facility] CLIA [id number] [address] [place] [address] [place] Creatinine and Glomerular filtration rate.predicted panel (S/P/Bld) 83 mL/min/1.73m??? Normal >=60 [facility] Comment on above: Order Comment: Speci men Type: TISSUE SPECIMEN Ordering Facility: [facility] Address: [address] [place] [address] Result Comment: Ludy mated Glomerular Filtration Rate (eGFR) is calculated using the 2020 CKD-EPI creatinine equation. This equation utilizes serum creatinine, sex, and age as parameters. The creatinine assay has traceable calibration to isotope dilution-mass spectrometry. Refer to KDIGO guidelines for clinical interpretation. In patients with unstable renal function, e.g. those with acute kidney injury, the eGFR may not accurately reflect actual GFR. Performed By: #### S #### [facility] CLIA [id number] [address] [place] [address] [place] #### [id number] #### [facility] CLIA [id number] [address] [place] [address] [place] Glucose [Mass/Vol] 190 mg/dL High 74-99 [facility] Comment on above: Order Comment: Speci men Type: TISSUE SPECIMEN Ordering Facility: [facility] Address: [address] [place] [address] Result Comment: The [place] [employer] (ADA) provides guidance for cutoff values for fasting glucose and random glucose. The ADA defines fasting as no caloric intake for at least 8 hours. Fasting plasma glucose results between 100 to 125 mg/dL indicate increased risk for diabetes (prediabetes). Fasting plasma glucose results greater than or equal to 126 mg/dL meet the criteria for diagnosis of diabetes. In the absence of unequivocal hyperglycemia, results should be confirmed by repeat testing. In a patient with classic symptoms of hyperglycemia or hyperglycemic crisis, random plasma glucose results greater than or equal to 200 mg/dL meet the criteria for diagnosis of diabetes. Reference: Standards of Medical Care in Diabetes 2016, [place] [employer]. Diabetes Care. 2016.39(Suppl 1). Performed By: #### S #### [facility] CLIA [id number] [address] [place] [address] [place] #### [id number] #### [facility] CLIA [id number] [address] [place] [address] [place] Potassium [Moles/Vol] 4.6 mmol/L Normal 3.7-5.1 [facility] Comment on above: Order Comment: Speci men Type: TISSUE SPECIMEN Ordering Facility: [facility] Address: [address] [place] [address] Performed By: #### S #### [facility] CLIA [id number] [address] [place] [address] [place] #### [id number] #### [facility] CLIA [id number] [address] [place] [address] [place] Sodium [Moles/Vol] 131 mmol/L Low 136-144 [facility] Comment on above: Order Comment: Speci men Type: TISSUE SPECIMEN Ordering Facility: [facility] Address: [address] [place] [address] Performed By: #### S #### [facility] CLIA [id number] [address] [place] [address] [place] #### [id number] #### [facility] CLIA [id number] [address] [place] [address] [place] Urea nitrogen [Mass/Vol] 11 mg/dL Normal 7-21 [facility] Comment on above: Order Comment: Speci men Type: TISSUE SPECIMEN Ordering Facility: [facility] Address: [address] [place] [address] Performed By: #### S #### [facility] CLIA [id number] [address] [place] [address] [place] #### [id number] #### [facility] CLIA [id number] [address] [place] [address] [place] CBC W Auto Differential pane l (Bld)on 06-04-2024 Basophils (Bld) [#/Vol] 0.03 10*3/uL Normal <0.11 [facility] Comment on above: Order Comment: Speci men Type: TISSUE SPECIMEN Ordering Facility: [facility] Address: [address] [place] [address] Performed By: #### S #### [facility] CLIA [id number] [address] [place] [address] [place] #### [id number] #### [facility] CLIA [id number] [address] [place] [address] [place] Basophils/100 WBC (Bld) 0.3 % Normal [facility] Comment on above: Order Comment: Speci men Type: TISSUE SPECIMEN Ordering Facility: [facility] Address: [address] [place] [address] Performed By: #### S #### [facility] CLIA [id number] [address] [place] [address] [place] #### [id number] #### [facility] CLIA [id number] [address] [place] [address] [place] Differential cell count method Nom (Bld) Auto Normal [facility] Comment on above: Order Comment: Speci men Type: TISSUE SPECIMEN Ordering Facility: [facility] Address: [address] [place] [address] Performed By: #### S #### [facility] CLIA [id number] [address] [place] [address] [place] #### [id number] #### [facility] CLIA [id number] [address] [place] [address] [place] Eosinophils (Bld) [#/Vol] 10*3/uL Normal <0.46 [facility] Comment on above: Order Comment: Speci men Type: TISSUE SPECIMEN Ordering Facility: [facility] Address: [address] [place] [address] Performed By: #### S #### [facility] CLIA [id number] [address] [place] [address] [place] #### [id number] #### [facility] CLIA [id number] [address] [place] [address] [place] Eosinophils/100 WBC (Bld) 0.0 % Normal [facility] Comment on above: Order Comment: Speci men Type: TISSUE SPECIMEN Ordering Facility: [facility] Address: [address] [place] [address] Performed By: #### S #### [facility] CLIA [id number] [address] [place] [address] [place] #### [id number] #### [facility] CLIA [id number] [address] [place] [address] [place] Erythrocyte distribution width (RBC) [Ratio] 15.9 % High 11.5-15.0 [facility] Comment on above: Order Comment: Speci men Type: TISSUE SPECIMEN Ordering Facility: [facility] Address: [address] [place] [address] Performed By: #### S #### [facility] CLIA [id number] [address] [place] [address] [place] #### [id number] #### [facility] CLIA [id number] [address] [place] [address] [place] Hematocrit (Bld) [Volume fraction] 30.5 % Low 36.0-46.0 [facility] Comment on above: Order Comment: Speci men Type: TISSUE SPECIMEN Ordering Facility: [facility] Address: [address] [place] [address] Performed By: #### S #### [facility] CLIA [id number] [address] [place] [address] [place] #### [id number] #### [facility] CLIA [id number] [address] [place] [address] [place] Hemoglobin (Bld) [Mass/Vol] 9.5 g/dL Low 11.5-15.5 [facility] Comment on above: Order Comment: Speci men Type: TISSUE SPECIMEN Ordering Facility: [facility] Address: [address] [place] [address] Performed By: #### S #### [facility] CLIA [id number] [address] [place] [address] [place] #### [id number] #### [facility] CLIA [id number] [address] [place] [address] [place] Immature granulocytes (Bld) [#/Vol] 0.05 10*3/uL Normal <0.10 [facility] Comment on above: Order Comment: Speci men Type: TISSUE SPECIMEN Ordering Facility: [facility] Address: [address] [place] [address] Performed By: #### S #### [facility] CLIA [id number] [address] [place] [address] [place] #### [id number] #### [facility] CLIA [id number] [address] [place] [address] [place] Immature granulocytes/100 WBC (Bld) 0.4 % Normal [facility] Comment on above: Order Comment: Speci men Type: TISSUE SPECIMEN Ordering Facility: [facility] Address: [address] [place] [address] Performed By: #### S #### [facility] CLIA [id number] [address] [place] [address] [place] #### [id number] #### [facility] CLIA [id number] [address] [place] [address] [place] Lymphocytes (Bld) [#/Vol] 1.02 10*3/uL Normal 1.00-4.00 [facility] Comment on above: Order Comment: Speci men Type: TISSUE SPECIMEN Ordering Facility: [facility] Address: [address] [place] [address] Performed By: #### S #### [facility] CLIA [id number] [address] [place] [address] [place] #### [id number] #### [facility] CLIA [id number] [address] [place] [address] [place] Lymphocytes/100 WBC (Bld) 8.6 % Normal [facility] Comment on above: Order Comment: Speci men Type: TISSUE SPECIMEN Ordering Facility: [facility] Address: [address] [place] [address] Performed By: #### S #### [facility] CLIA [id number] [address] [place] [address] [place] #### [id number] #### [facility] CLIA [id number] [address] [place] [address] [place] MCH (RBC) [Entitic mass] 27.0 pg Normal 26.0-34.0 [facility] Comment on above: Order Comment: Speci men Type: TISSUE SPECIMEN Ordering Facility: [facility] Address: [address] [place] [address] Performed By: #### S #### [facility] CLIA [id number] [address] [place] [address] [place] #### [id number] #### [facility] CLIA [id number] [address] [place] [address] [place] MCHC (RBC) [Mass/Vol] 31.1 g/dL Normal 30.5-36.0 [facility] Comment on above: Order Comment: Speci men Type: TISSUE SPECIMEN Ordering Facility: [facility] Address: [address] [place] [address] Performed By: #### S #### [facility] CLIA [id number] [address] [place] [address] [place] #### [id number] #### [facility] CLIA [id number] [address] [place] [address] [place] MCV (RBC) [Entitic vol] 86.6 fL Normal 80.0-100.0 [facility] Comment on above: Order Comment: Speci men Type: TISSUE SPECIMEN Ordering Facility: [facility] Address: [address] [place] [address] Performed By: #### S #### [facility] CLIA [id number] [address] [place] [address] [place] #### [id number] #### [facility] CLIA [id number] [address] [place] [address] [place] Monocytes (Bld) [#/Vol] 0.86 10*3/uL Normal <0.87 [facility] Comment on above: Order Comment: Speci men Type: TISSUE SPECIMEN Ordering Facility: [facility] Address: [address] [place] [address] Performed By: #### S #### [facility] CLIA [id number] [address] [place] [address] [place] #### [id number] #### [facility] CLIA [id number] [address] [place] [address] [place] Monocytes/100 WBC (Bld) 7.3 % Normal [facility] Comment on above: Order Comment: Speci men Type: TISSUE SPECIMEN Ordering Facility: [facility] Address: [address] [place] [address] Performed By: #### S #### [facility] CLIA [id number] [address] [place] [address] [place] #### [id number] #### [facility] CLIA [id number] [address] [place] [address] [place] Neutrophils (Bld) [#/Vol] 9.87 10*3/uL High 1.45-7.50 [facility] Comment on above: Order Comment: Speci men Type: TISSUE SPECIMEN Ordering Facility: [facility] Address: [address] [place] [address] Performed By: #### S #### [facility] CLIA [id number] [address] [place] [address] [place] #### [id number] #### [facility] CLIA [id number] [address] [place] [address] [place] Neutrophils/100 WBC (Bld) 83.4 % Normal [facility] Comment on above: Order Comment: Speci men Type: TISSUE SPECIMEN Ordering Facility: [facility] Address: [address] [place] [address] Performed By: #### S #### [facility] CLIA [id number] [address] [place] [address] [place] #### [id number] #### [facility] CLIA [id number] [address] [place] [address] [place] Nucleated RBC (Bld) [#/Vol] 10*3/uL Normal <0.01 [facility] Comment on above: Order Comment: Speci men Type: TISSUE SPECIMEN Ordering Facility: [facility] Address: [address] [place] [address] Performed By: #### S #### [facility] CLIA [id number] [address] [place] [address] [place] #### [id number] #### [facility] CLIA [id number] [address] [place] [address] [place] Nucleated RBC/100 WBC (Bld) [Ratio] 0.0 /100 WBC Normal [facility] Comment on above: Order Comment: Speci men Type: TISSUE SPECIMEN Ordering Facility: [facility] Address: [address] [place] [address] Performed By: #### S #### [facility] CLIA [id number] [address] [place] [address] [place] #### [id number] #### [facility] CLIA [id number] [address] [place] [address] [place] Platelet mean volume (Bld) [Entitic vol] 10.2 fL Normal 9.0-12.7 [facility] Comment on above: Order Comment: Speci men Type: TISSUE SPECIMEN Ordering Facility: [facility] Address: [address] [place] [address] Performed By: #### S #### [facility] CLIA [id number] [address] [place] [address] [place] #### [id number] #### [facility] CLIA [id number] [address] [place] [address] [place] Platelets (Bld) [#/Vol] 285 10*3/uL Normal 150-400 [facility] Comment on above: Order Comment: Speci men Type: TISSUE SPECIMEN Ordering Facility: [facility] Address: [address] [place] [address] Performed By: #### S #### [facility] CLIA [id number] [address] [place] [address] [place] #### [id number] #### [facility] CLIA [id number] [address] [place] [address] [place] RBC (Bld) [#/Vol] 3.52 10*6/uL Low 3.90-5.20 [facility] Comment on above: Order Comment: Speci men Type: TISSUE SPECIMEN Ordering Facility: [facility] Address: [address] [place] [address] Performed By: #### S #### [facility] CLIA [id number] [address] [place] [address] [place] #### [id number] #### [facility] CLIA [id number] [address] [place] [address] [place] WBC (Bld) [#/Vol] 11.83 10*3/uL High 3.70-11.00 [facility] Comment on above: Order Comment: Speci men Type: TISSUE SPECIMEN Ordering Facility: [facility] Address: [address] [place] [address] Performed By: #### S #### [facility] CLIA [id number] [address] [place] [address] [place] #### [id number] #### [facility] CLIA [id number] [address] [place] [address] [place] CONSULTon 06-04-2024 CONSULT HNO ID: [id number] Author: JERAMY DSOUZA MD Service: Endocrinology Author Type: Physician Type: Consults Filed: 06/04/2024 15:16 Note Text: ENDOCRINOLOGY CONSULT Requesting Provider: JEARMY GARRIDO Opinion/advice regarding: type 1 diabetes postop on insulin pump+sensor My final recommendations will be communicated back to the requesting physician by way of shared Medical record or letter to requesting physician via [place] mail. Assessment / Plan Assessment: 1) Diabetes type 1 on insulin pump, not in closed loop with her Dexcom sensor (no automation for insulin pump rates). Sugars drifting up some, clearly can be from stress of her pain plus effects of yesterday's surgery. I will up her basal rates by 0.05 units/hr across the board. I will also ask her to put in the sugars even when not eating, at AC+HS+2AM. Treatment / Plan: 1) increase insulin pump basal rates by 0.05 unit/hr across the board Jeramy Dsouza MD Data History Diabetes : type 1 on Medtronic insulin pump, about 3 months till expiration of warranty and then plans to switch to [employer] has Dexcom sensor patient with uncontrolled pain, Nursing working on pain med IV settings, will defer significant history for now she is followed by Dr. Hunter in [facility] is with her in the room. ROS PHYSICAL EXAM BP 123/57 Pulse 88 Temp 36.8 ?C (98.2 ?F) (Oral) Resp 17 Ht 160 cm (5' 3 ) Wt 63.5 kg (140 lb) SpO2 96% BMI 24.80 kg/m? PAST MED / SURG / FAMILY / SOCIAL HISTORY PAST MEDICAL HISTORY Diagnosis Date Arthritis Diverticulitis Former smoker GERD (gastroesophageal reflux disease) HTN (hypertension) Hypercholesteremia IDDM (insulin dependent diabetes mellitus) Low blood potassium Low iron Low salt syndrome Mental disorder Snoring PAST SURGICAL HISTORY Procedure Laterality Date ANTERIOR DISCECTOMY ARTHROSCOPY KNEE DIAGNOSTIC W/WO SYNOVIAL BX SPX Right 04/11/2010 Arthroscopy, knee BREAST AUGMENTATION WITH IMPLANT 1976 bilateral silicone implants COLONOSCOPY 06/30/2017 Susu- diverticulosis, repeat in 5 years EGD 10/16/2015 PAST SURGICAL HISTORY OF 03/22/2010 pulled abscess tooth: cipro for 10 days. PAST SURGICAL HISTORY OF right shoulder surgery PAST SURGICAL HISTORY OF Left 11/02/2015 arthroplasty base L thumb. PAST SURGICAL HISTORY OF all teeth removed for dentures TOTAL ABDOMINAL HYSTERECT W/WO RMVL TUBE OVARY 1990 RAUL-BSO FAMILY HISTORY Problem Relation Age of Onset other (Other [Other]) Unknown No known family history of breast cancer Thyroid Daughter Thyroid Sister Thyroid Maternal Aunt Diabetes Mother Type 2 DM, age 96 Emphysema Father age 76 Colon Cancer Sister Heart Sister Cancer Brother lung cancer Coronary Artery Disease Brother other (prediabetic [Other]) Brother Social History Tobacco Use Smoking status: Former Current packs/day: 0.00 Average packs/day: 1 pack/day for 30.0 years (30.0 ttl pk-yrs) Types: Cigarettes Start date: 09/22/1972 Quit date: 09/22/2002 Years since quittin.7 Smokeless tobacco: Never Vaping Use Vaping status: Never Used Substance Use Topics Alcohol use: Not Currently Drug use: No MEDICATIONS AND ALLERGIES Current Facility-Administered Medications Medication Dose Route Frequency Provider Last Rate Last Admin insulin lispro (ADMElog) 300 Units per 3mL vial for insulin pump (SELF ADMINISTERED) SUBCUTANEOUS CONTINUOUS Jeramy Dsouza MD Self Admin at 06/04/24 0830 fentaNYL [employer] ARCHITECT 20 mcg/mL in NaCl 0.9% 100 mL (SUBLIMAZE) INTRAVENOUS CONTINUOUS Rafaela Baum APRN.[employer] New Bag at 06/04/24 1001 amLODIPine 10 mg tab(s) (NORVASC) 10 mg ORAL DAILY Jaclyn Browne MD rosuvastatin 5 mg tab(s) (CRESTOR) 5 mg ORAL AT BEDTIME Jaclyn Browne MD pantoprazole DR 40 mg tab(s) (PROTONIX) 40 mg ORAL DAILY Jaclyn Browne MD 40 mg at 06/04/24 0833 sertraline 100 mg tab(s) (ZOLOFT) 100 mg ORAL DAILY Jaclyn Browne MD 100 mg at 06/04/24 0834 NaCl 0.9% iv flush bag 20 mL INTRAVENOUS PRN Jaclyn Browne MD lactated ringers iv infusion 75 mL/hr INTRAVENOUS CONTINUOUS Jaclyn Browne MD 75 mL/hr at 06/04/24 1018 75 mL/hr at 06/04/24 1018 alvimopan 12 mg cap(s) (ENTEREG) 12 mg ORAL BID Jaclyn Browne MD 12 mg at 06/04/24 0834 ondansetron (PF) 4 mg injection (ZOFRAN) 4 mg INTRAVENOUS q 6 H PRN Jaclyn Browne MD acetaminophen 1,000 mg tab(s) (TYLENOL) 1,000 mg ORAL q 6 H Jaclyn Browne MD 1,000 mg at 06/04/24 1230 lactobacillus rhamnosus 10 billion cell (CULTURELLE) capsule 1 capsule ORAL DAILY Jaclyn Browne MD 1 capsule at 06/04/24 0834 enoxaparin 40 mg injection (LOVENOX) 40 mg SUBCUTANEOUS DAILY Jaclyn Browne MD 40 mg at 06/04/24 0834 naloxone 0.1 mg injection (NARCAN) 0.1 mg INTRAVENOUS q 2 MIN PRN Jaclyn Browne MD dextrose 40 % 15 g 15 g ORAL PRN Sara Garay MD Or glucagon 1 mg injection 1 mg INTRAMUSCULAR PRN Sara Garay MD Or dextrose 10 (more content not included)... [facility] NURSING PROGon 06-04-2024 NURSING PROG HNO ID: [id number] Author: NOMAN DOZIER, LAURA Service: Nursing Author Type: Registered Nurse Type: Nursing Progress Note Filed: 06/04/2024 12:16 Note Text: Other: 1200: Dr. Garrido into see patient, order to dc siddiqui, changed dilaudid sales enablement lead pump to fentanyl sales enablement lead pump. Pt tolerating well. This nurse spoke to Dr. Dsouza via [employer] chat regarding pt's insulin pump. Settings verified with patient and doctor, pt also has decacom device. Pt tolerating clears, no nausea. 1215: Pt passing lots of gas, has had 2 liquid bm's, she also is hiccupping, folded blanket given to help splint [facility] NURSING PROG HNO ID: [id number] Author: ARMANDO HARRISON RN Service: Nursing Author Type: Registered Nurse Type: Nursing Progress Note Filed: 06/04/2024 02:53 Note Text: 0245: Siddiqui output 175mL thus far this shift, attempted to reposition and troubleshoot. Bladder scan for 0. Notified LIP, bolus ordered. Refer MAR for details. [facility] NUTRITIONon 06-04-2024 NUTRITION HNO ID: [id number] Author: HAILEY YOUNG RD Service: NST-Nutrition Support Team Author Type: Registered Dietitian Type: Nutrition Filed: 06/04/2024 13:07 Note Text: NUTRITION THERAPY INITIAL ASSESSMENT SERVICE DATE: 06/04/2024 SERVICE TIME: 1:05 PM Nutrition Assessment: Recommended Malnutrition Diagnosis: Mild Protein-Calorie Malnutrition In the context of: Chronic Illness or Injury Based on: Insufficient Energy Intake Nutrition Diagnosis: Problem: Increased nutrient needs Related to: Altered GI function As evidenced by: Anorexia, Laboratory markers, Patient/family self-report, Medical condition, Procedure/surgery, Imaging studies, Intake records, Food/nutrition related history Care Plan: Follow for diet advancement to goal CHO Controlled and GI Soft Supplements: Impact AR, Powerade Zero Monitor and Evaluation: Meet greater than 75% of estimated needs, Monitor fluid/electrolyte balance, Monitor labs, I/Os, vital signs, weight, Monitor bowel function HPI: 74 year old female with history of sigmoid mass now s/p Laparoscopic Left Colectomy with Colorectal Anastomosis Intake History: Nutrition Intake Prior to Admission: Less than 75% estimated energy needs greater than or equal to 1 month Current Nutrition Intake: 0-25% estimated energy needs Current Intake Over time: (x 1 day) Pt states decreased appetite and eats small portions related to her hiatal hernia States wt loss but not significant within 1 year Stated she is diabetic and watches her diet at home - CHO Controlled Dosing Weight: 63.5 kg (140 lb) Dosing Weight Type: Current weight Estimated kilocalorie needs: 8167-3505 Calorie Calculation Method: 25-30 kcals/kg Estimated protein needs (grams): 76-100 Grams protein determined by: 1.2 - 1.6 g/kg Diet Orders (From admission, onward) Start Ordered 06/04/24 0815 DIET LIQUID START NOW Question: Liquid Diet Answer: CLEAR LIQUID 06/04/24 0800 06/04/24 0000 DIET SUPPLEMENTS START NOW Question Answer Comment Supplement 1 (19 years and up) IMPACT ADVANCED [employer]OV[employer] VANILLA Supplement 1 Frequency 7. BREAKFAST, LUNCH, DINNER Supplement 2 (19 years and up) GATORADE G2 GLACIER FREEZE Supplement 2 Frequency 2. AM SNACK Supplement 2 Frequency 4. PM SNACK Supplement 2 Frequency 6. NIGHT SNACK Feeding instructions for nursing Start when advanced to unlimited liquids or GI soft diet 06/03/24 8976 Anthropometrics: Height: 160 cm (5' 3 ) Weight: 63.5 kg (140 lb) Usual Weight: 72.1 kg (159 lb) 2 years ago Usual Weight Obtained From: Chart Review Body mass index is 24.8 kg/m?. Weight change percentage over time: no recent significant wt loss Weight Change: Not clinically signficant weight loss Physical Exam: Subcutaneous fat loss: No fat loss Muscle loss: No muscle loss Potential micronutrient deficiency: No deficiency identified Edema/Ascites: No edema GI Symptoms: Anorexia Functional Status: No Change Potential Signs of Inflammation: Chronic condition, Imaging studies, Acute post-operative, Leukocytosis, Hyperglycemia Rectal cancer, arthritis,spinal stenosis,HTN,hiatal hernia,DM MNT Billing: $ Initial Assessment: 16-30 minutes SIGNATURE: Hailey Young RD PATIENT NAME: Rodrigue Wallace DATE: June 04, 2024 TIME: 1:05 PM [facility] PT EDon 06-04-2024 PT ED HNO ID: [id number] Author: HAILEY YOUNG RD Service: NST-Nutrition Support Team Author Type: Registered Dietitian Type: Patient Education Filed: 06/04/2024 13:09 Note Text: NUTRITION THERAPY PATIENT EDUCATION SERVICE DATE: 06/04/2024 SERVICE TIME: 1:09 PM TOPIC: Diet: GI Soft LEARNING ASSESSMENT Individuals Assessed: Patient Preferred Learning Method: Verbal Instruction and Written Instruction Barriers to Learning: None Evident LEARNING RESPONSE Instruction Provided to: Patient Patient / Family Response: Performs Independently and Verbalizes Understanding Method of Instruction: Written instruction/Handouts Verbal instruction Material(s) Provided to Patient: G/L for GI Soft Diet and Education Materials Provided Nutrition Education [facility]: Guidelines for Gastrointestinal Soft Diet Follow-Up Plan: Follow-up with Primary Care Referral (Recommendation): Primary Care Provider MNT Billing: $ Initial Assessment: 16-30 minutes SIGNATURE: Hailey Young RD PATIENT NAME: Rodrigue Wallace DATE: June 04, 2024 TIME: 1:08 PM PAGER: [facility] THERAPY NTon 06-04-2024 THERAPY NT HNO ID: [id number] Author: NICHOLAS BLOUNT OTR/L Service: Occupational Therapy Author Type: Occupational Therapist Type: Therapy (PT/OT/Speech/Resp) Filed: 06/04/2024 13:08 Note Text: Occupational Therapy Evaluation Summary SERVICE DATE: 06/04/2024 SERVICE TIME: 1015 to 1040 ROOM: [place] [address] OT 6 Clicks Score: 18 Scheduled Surgery For Rectosigmoid CA, S/P Laparoscopic Left Colectomy With Colorectal Anastomosis, Flexible Sigmoidoscopy 06/03/24 DISCHARGE RECOMMENDATIONS Home Pt has adequate support and social structure for reasonably safe discharge home at current level. Anticipated Discharge Needs: Physical Assist at Home Physical Assist at Home for: Cleaning, Laundry, Meals, Stairs, Shopping, Transportation, Self Care Recommended Discharge Equipment: Elastic Shoe Laces, Grab Bars-Shower, Hand Held Shower, Long Handled Shoe Horn, Long Handled Sponge, Wheeled Walker, Cupola Operator Insulation, Extended tub bench, Sock Aid ASSESSMENT Response to Therapy Interventions: Good Participation in Activities Pt plans to return home with family support PRECAUTIONS Abdominal, Bed/Chair Alarm, Fall Risk, Diet Restrictions, Lines/Tubes/Drains CURRENT HOSPITAL COURSE Scheduled Surgery For Rectosigmoid CA, S/P Laparoscopic Left Colectomy With Colorectal Anastomosis, Flexible Sigmoidoscopy 06/03/24 Relevant Past Medical History: Rectal cancer, arthritis,spinal stenosis,HTN,hiatal hernia,DM HOME LIVING Patient Lives With: Spouse (split level home) Comments: Split level home, bed/bath 3rd level Assistance Available: PRN Comments: spouse retired, two children in area Entry To Home: Stairs, Without Rail Number Of Stairs Into Home: 3 Number Of Stairs To Bed/Bath: 6 Stairs to Bed/Bath with: Unilateral Rail Tub/Shower Type: WIS and tub shower Laundry: basement, down 13 steps from main level Equipment Owned: Cane, Walker- Wheeled, Shower Chair, Grab Bars- Shower, Wheelchair- Manual, Hospital Bed, Cupola Operator Insulation PRIOR FUNCTIONAL LEVEL Per Pt, she was independent with ADL's, shares some IADL's, and she has laboratory helper for cleaning once a month. Pt's spouse completes the grocery shopping, and shares all other IADL's. Pt ambulated independently prior to admit, and does not drive. Pt has two children in the area for support. Pt reported one fall in past year secondary to dizziness. Within Functional Limits, Required Assistance Assistance Required With: Shopping, Transportation, Cleaning Baseline Cognition: Oriented to self, Oriented to place, Oriented to time, Oriented to situation SUBJECTIVE I am getting tired COGNITION Responsiveness: Alert, Awake Follows Commands: 3-step Commands THERAPY DIAGNOSIS Reduced mobility-other, Decreased activities of daily living (ADL), Muscle Weakness (generalized) TREATMENT INTERVENTIONS Evaluation, Self Residential Management (53167) Timed Code Treatment (minutes): 10 Skilled Treatment Time (minutes): 25 TRAINING AND EDUCATION PROVIDED Activity Adaptation/Compensatory Strategies, Adaptive Equipment/DME, Assistive Device Use, Bed Mobility, Benefits of In-Hospital Mobility, Discharge Planning, Disease Specific Education, Energy Conservation, Expected Functional Level, Insight into Deficits, Positioning, Precautions/Restriction s, Role of Occupational Therapy, Safety/Judgment, Standing Balance to Improve Talpa with ADLs/Self-Care, Transfer - Bed to Chair, Transfer - Sit to Stand, Treatment Protocol THERAPEUTIC SKILLS USED Activity Dosing, Cues for Sequencing/Proper Technique for Activity, Cuing Tactile, Cuing Verbal, Cuing Visual, Management of Critical Lines, Tubes and/or Drains, Movement Facilitation, Physical Assist, Teach-Back for Education, Therapeutic Use of Self FUNCTIONAL STATUS Activities of Daily Living Assist Level Additional Information Feeding Independent Grooming Modified Independent Bathing Upper Body Modified Independent Bathing Lower Body Moderate Assistance Dressing Upper Body Stand By Assistance Dressing Lower Body Moderate Assistance Toileting Moderate Assistance Mobility Assist Level Additional Information Bed Mobility Sit To Supine: Moderate Assistance Sit to Stand Contact Guard Assistance Stand to Sit Contact Guard Assistance Bed to Chair Contact Guard Assistance Bed To Chair Transfer Type: Stepping Bed To Chair Transfer Equipment: Wheeled Walker Toilet/Commode Shower Functional Mobility Contact Guard Assistance Functional Mobility Device: Wheeled Walker GOALS Patient will demonstrate progress with self-care, cognitive and/or coping needs identified to allow safe discharge to home with available support and/or physical assistance. Progress Toward Goals: Progressing as expected Rehab Potential: Good PLAN OT Frequency: 3 Times Per Week Treatment Interventions: Education, Self Care/Home Management, Energy Conservation Training, Strengthening, Functional Mobility Training Plan for Next (more content not included)... [facility] THERAPY NT HNO ID: [id number] Author: MIRANDA WRIGHT, PT Service: Physical Therapy Author Type: Physical Therapist Type: Therapy (PT/OT/Speech/Resp) Filed: 06/04/2024 12:46 Note Text: Physical Therapy Evaluation Summary SERVICE DATE: 06/04/2024 SERVICE TIME: 1055 to 1119 ROOM: [place] [address] PT 6 Clicks Score: 19 DISCHARGE RECOMMENDATIONS Home Recommended Discharge Disposition Comments: with assist for IADL's prn ASSESSMENT Response to Therapy Interventions: Good Participation in Activities pt walks with slow but fairly steady gait using 2ww and CG assist for 60' with cues for safety; pt reports some lightheadedness and pain limiting distance PRECAUTIONS Abdominal, Bed/Chair Alarm, Fall Risk, Diet Restrictions, Lines/Tubes/Drains CURRENT HOSPITAL COURSE s/p LAPAROSCOPIC HEMICOLECTOMY WITH ANASTOMOSIS 06/04 for rectal cancer Relevant Past Medical History: Rectal cancer, arthritis,spinal stenosis,HTN,hiatal hernia,DM HOME LIVING Patient Lives With: Spouse (split level home) Assistance Available: PRN Entry To Home: Stairs, Without Rail Number Of Stairs Into Home: 3 Number Of Stairs To Bed/Bath: 6 Stairs to Bed/Bath with: Unilateral Rail Tub/Shower Type: WIS and tub shower Laundry: basement, down 13 steps from main level Equipment Owned: Cane, Walker- Wheeled, Shower Chair, Grab Bars- Shower, Wheelchair- Manual, Hospital Bed, Cupola Operator Insulation PRIOR FUNCTIONAL LEVEL Within Functional Limits, Required Assistance Assistance Required With: Shopping, Transportation, Cleaning pt indep without device, indep ADL's, shares IADL's with spouse; has a cleaning lady 1x/month, does not drive; had 1 fall this past year due to dizziness SUBJECTIVE pt pleasant and cooperative THERAPY DIAGNOSIS Reduced mobility-other, Muscle Weakness (generalized), General symptoms and signs-other TREATMENT INTERVENTIONS Evaluation, Gait Training (90442) Timed Code Treatment (minutes): 9 Skilled Treatment Time (minutes): 24 TRAINING AND EDUCATION PROVIDED Anatomy and Impact on Deficits, Assistive Device Use, Benefits of In-Hospital Mobility, Bed Mobility, Gait Pattern, Reduction of Deviations, Falls Prevention, Home Safety, Precautions/Restriction s, Transfers, Standing Balance THERAPEUTIC SKILLS USED Physical Assist, Movement Facilitation, Cues for Sequencing/Proper Technique for Activity, Cuing Tactile, Cuing Verbal, Assessment of Tolerance Including Vitals Response to Activity, Activity Dosing FUNCTIONAL STATUS Bed Mobility Sit to Supine: Minimal Assistance (for legs into bed) Scooting: Stand By Assistance Transfers Sit To Stand: Contact Guard Assistance (cues for hand placement) Stand To Sit: Stand By Assistance, Contact Guard Assistance Bed to Chair Gait Contact Guard Assistance Gait Device: Wheeled Walker General Deviations/Observations : Judith decreased, Step length decreased, Difficulty changing direction/turning (reports some lightheadedness) Gait Distance (feet): 60 Stairs GOALS Patient will demonstrate progress with functional mobility to allow safe discharge to home with available support and/or physical assistance. Rehab Potential: Good Progress Toward Goals: Progressing as expected PLAN PT Frequency: 4 Times Per Week Treatment Interventions: Education, Strengthening, Functional Mobility Training Plan for Next Visit: Bed Mobility, Gait Training, Sit to Stand Transfers, Standing Tolerance, Walker Training SIGNATURE: Miranda Wright PT PATIENT NAME: Rodrigue Wallace DATE: June 04, 2024 TIME: 12:46 PM [facility] ANES POSTPROC EVALon 024 ANES POSTPROC EVAL HNO ID: [id number] Author: JULIÁN DUNCAN MD Service: Anesthesiology Author Type: Anesthesiologist Type: Anesthesia Postprocedure Evaluation Filed: 06/03/2024 15:55 Note Text: POST ANESTHESIA EVALUATION NOTE : 1950 Procedure Summary Date: 06/03/24 Room / Location: [facility] OR08 / [facility] Anesthesia Start: 1136 Anesthesia Stop: 1528 Procedure: LAPAROSCOPIC HEMICOLECTOMY WITH ANASTOMOSIS (Left: Abdomen) Diagnosis: Rectal cancer (HCC) (Rectal cancer (HCC) [C20]) Surgeons: Jeramy Garrido MD Responsible Provider: Julián Duncan MD Anesthesia Type: general ASA Status: 3 Anesthesia Type: general Airway Type: ETT Last Vitals Vitals Value Taken Time BP 125/61 06/03/24 1545 Temp 36 ?C (96.8 ?F) 06/03/24 1522 Pulse 73 06/03/24 1555 Resp 13 06/03/24 1555 SpO2 97 % 06/03/24 1555 Vitals shown include unfiled device data. Post Anesthesia Patient Status Patient Evaluation: PACU. PACU/ICU Patient Condition: stable. Anticipated Disposition: phase 2 then home. Neurological Status: aware and responsive. Pulmonary Status: breathing comfortably on room air Airway Control: returned to baseline unsupported. Cardiovascular Status: stable. Pain Management: clinically adequate Postoperative Hydration: acceptable. Intraoperative Events: no significant anesthesia events Recommendation: continue current plan of care. Anesthesia Observations No Documentation SIGNATURE: Julián Duncan MD PATIENT NAME: Rodrigue Wallace DATE: June 03, 2024 TIME: 3:55 PM CSN: [id number] [facility] ANES PRE-OPon 06-03-2024 ANES PRE-OP HNO ID: [id number] Author: BILLY BARRETT MD Service: Anesthesiology Author Type: Anesthesiologist Type: Anesthesia Preprocedure Evaluation Filed: 06/03/2024 09:15 Note Text: ANESTHESIOLOGY DAY OF SURGERY NOTE : 1950 Procedure Information Date/Time: 06/03/24 0953 Procedure: LAPAROSCOPIC HEMICOLECTOMY WITH ANASTOMOSIS (Left: Abdomen) Location: OR08 / [facility] Surgeons: Jeramy Garrido MD Estimated body mass index is 24.8 kg/m? as calculated from the following: Height as of 04/27/24: 160 cm (5' 3 ). Weight as of 04/27/24: 63.5 kg (140 lb). Most recent hematocrit and potassium results: Hematocrit 35.8 06/02/2024 Potassium 4.4 06/02/2024 Relevant Problems No relevant active problems I - PHYSICAL EVALUATION AIRWAY Patient intubated: No. Tracheostomy tube not present Mallampati: II. TM distance: >3 FB. Neck ROM: full ROM without neurological symptoms. Mouth opening: adequate. Short neck: no. Thick neck: no DENTAL Dental findings: teeth intact. Additional exam findings: no II - ANESTHESIA PLAN ASA Score: 3 Anesthetic Plan: general Airway type: ETT The patient is not a current smoker. NPO Status: adequate Anesthetic plan additional comments: Insulin pump . Patient decreased basal rate . Halved. Around 2.5 units per hour . For npo intra-op . Glucose continuous monitor on phone. Pass code on nurse preop sheet.has hx of ketoacidosis and hypoglycemia.. Beta Nemesio Monitoring Plan Monitoring plan: standard ASA. Post Procedure Analgesic Plan Postoperative analgesic plan: multimodal analgesia. Informed Consent Anesthetic risks, benefits, alternatives, personnel and consent discussed: yes. Patient / Responsible [employer] Party agrees to proceed: yes Patient / Surrogate agrees to blood products: Yes Potential Anesthesia issues that may suggest increased risk of complications or contraindication to planned procedure: none. Vitals Value Taken Time BP 152/73 06/03/24 0900 Pulse 80 06/03/24 0900 Resp 16 06/03/24 0900 Temp 36.3 ?C (97.3 ?F) 06/03/24 09 SpO2 98 % 06/03/24 09 No current facility-administered medications on file as of 06/03/2024. Outpatient Medications as of 06/03/2024 Medication Sig lisinopril (ZESTRIL) 20 mg tablet Take 20 mg by mouth once daily. atorvastatin calcium (ATORVASTATIN ORAL) Take 5 mg by mouth once daily. fluticasone (FLONASE ALLERGY RELIEF) 50 mcg/actuation nasal spray Use 1 Mobile in each nostril as directed. Nut.Tx.Gluc.Intol,Lac-F ree,Soy (GLUCERNA) liqd Take 8 oz by mouth once daily. ferrous sulfate 325 mg (65 mg iron) tablet Take 1 tablet by mouth. rosuvastatin (CRESTOR) 5 mg tablet amLODIPine (NORVASC) 10 mg tablet NOVOLOG U-100 INSULIN ASPART 100 unit/mL Use via insulin pump, 30 units daily lisinopril (PRINIVIL) 10 mg tablet Take 1 tablet by mouth once daily. cholecalciferol (VITAMIN D3) 1,000 unit tab Take 2 tablets by mouth once daily. esomeprazole (NEXIUM) 40 mg capsule Take 1 capsule by mouth once daily. sertraline (ZOLOFT) 50 mg tablet Take 1 tablet by mouth once daily. mometasone (NASONEX) 50 mcg/actuation nasal spray Use 2 Sprays in the nose once daily. Aspirin 81 mg ORAL Tab Take one(1) tablet daily. ergocalciferol, vitamin D2, (VITAMIN D2 ORAL) Take by mouth once daily. iv contrast (will be provided with radiology test) MRI Rectum Inject, intravenously, once for 1 dose. No IV access, insert saline lock prior to the beginning of sedation, infusion, injection of imaging exam. Discontinue saline lock post exam. If Pt has a central line or IVAD, may access for administration according to line specific nursing protocol. Once exam is complete flush line and de-access according to line specific nursing protocol in the MR contrast administration guidelines link. enteric contrast (will be provided with radiology test) MRI RECTUM WO/W. Administer, As Directed One Time Only, via Oral, Rectal, both Oral and Rectal, Enteric Tube, Stoma or Indwelling Catheter, Enteric Contrast as designated per enteric contrast guidelines lactose-reduced food (ENSURE CLEAR ORAL) Take by mouth once daily. coenzyme Q10 30 mg capsule Take 30 mg by mouth. I have interviewed and examined the patient. I have reviewed the medical record and/or the pre-anesthesia evaluation, pertinent labs, and test results. This contains updated information obtained within 48 hours of Surgery/Procedure. SIGNATURE: Billy Barrett MD PATIENT NAME: Rodrigue Wallace DATE: June 03, 2024 TIME: 9:13 AM CSN: [id number] [facility] BRIEF OP NOTon 06-03-2024 BRIEF OP NOT HNO ID: [id number] Author: JACLYN BROWNE MD Service: Colorectal Author Type: Resident Type: Brief Op Note Filed: 06/03/2024 15:09 Note Text: DDSI BRIEF OP NOTE LOG ID: [id number] SURGERY/PROCEDURE DATE: 06/03/2024 INCISION/PROCEDURE START TIME: 12:22 PM INCISION CLOSE/PROCEDURE END TIME: SURGEON(S)/PROCEDURALIS T(S) AND REAL ESTATE PORTFOLIO MANAGER(S): Surgeons and Role: * Jeramy Garrido MD - Primary * Jaclyn Browne MD - Resident - Assisting * Ethel Chowdhury MD - Resident - Assisting No Additional Staff SURGERY/PROCEDURE(S): Laparoscopic Left Colectomy with Colorectal Anastomosis, Flexible Sigmoidoscopy ANESTHESIA: General FINDINGS: Hand assisted Lap left colectomy with anastomosis. 7 cm free distal margin from tumor. Negative leak test on sigmoidoscopy ESTIMATED BLOOD LOSS: 50 mls SPECIMENS: ID Type Source Tests Collected by Time Destination A : left colon and rectum Tissue Colon, Rectum, Resection SURGICAL PATHOLOGY Jeramy Garrido MD 06/03/2024 2:02 PM COMPLICATIONS: None PRE-OP/PRE-PROCEDURE DIAGNOSIS: Rectosigmoid Cancer POST-OP/POST-PROCEDURE DIAGNOSIS: Same as Preop SIGNATURE: Jaclyn Browne MD PATIENT NAME: Rodrigue Wallace DATE: June 03, 2024 TIME: 3:07 PM PAGER/CONTACT #: [facility] CONFIRM BLOOD TYPEon 024 ABO A [facility] Comment on above: Order Comment: Speci men Type: BLOOD SPECIMENOrdering Facility: [facility] Address: [address] [place] [address] Performed By: #### C ONABO ####[facility] [id number] [address] [place] Rh Nom (Bld) Positive [facility] Comment on above: Order Comment: Speci men Type: BLOOD SPECIMENOrdering Facility: [facility] Address: [address] [place] [address] Performed By: #### C ONABO ####[facility] [id number] [place] [id number] [place] HISTORY PHYSICALon HISTORY PHYSICAL HNO ID: [id number] Author: JERAMY GARRIDO MD Service: Colorectal Author Type: Resident Type: H&P Filed: 06/03/2024 10:29 Note Text: Attestation signed by Jeramy Garrido MD at 06/03/2024 10:29 AM Attending Note I evaluated the patient and personally participated in the pompa components. I agree with the resident's findings and plan as documented and have discussed the case and management of the patient's care with the resident. Signature: Jeramy Garrido MD Date: 06/03/2024 Time: 10:29 AM UPDATED HISTORY AND PHYSICAL EXAMINATION SERVICE DATE: 06/03/2024 SERVICE TIME: 9:39 AM PHYSICAL EXAM MUST BE COMPLETED ON ADMISSION The History and Physical (completed in the past 30 days) has been reviewed and the patient has been examined. The contents accurately reflect the patient's condition with the following additions or revisions since the HANDP was completed. This HANDP can be found in the electronic medical record. Examination indicates no changes. Heart: Regular rate and rhythm. Normal S1 and S2. No murmurs, rubs, or gallops. Lungs: Unlabored respirations on room air. Symmetric chest rise. Clear to auscultation bilaterally. No wheezes, rhonchi, or rales. SIGNATURE: Ethel Chowdhury MD PATIENT NAME: Rodrigue Wallace DATE: June 03, 2024 TIME: 9:39 AM [facility] MISMATCH REPAIR PROTEINS BY IHCon 06-03-2024 AP BIOMARKER DISCLAIMER Normal [facility] Comment on above: Order Comment: Speci men Type: TISSUE SPECIMEN [facility] Address: [address] [place] [address] Result Comment: Katarina michelle Developed Test (LDT) Disclaimer: Performance characteristics of immunohistochemical, immunofluorescent and chromogenic in-situ hybridization tests have been determined by the performing laboratory within [facility]???s [facility] ([facility], [facility], [facility], [facility], [facility], [facility], or [facility]) in a manner consistent with CLIA requirements. One or more of these tests have not been cleared or approved by the FDA. [facility] is regulated under CLIA as qualified to perform high-complexity testing. These tests are used for clinical purposes. They should not be regarded as investigational or for research. Positive and negative controls stain appropriately. Performed By: #### S #### [facility] CLIA [id number] [address] [place] [address] [place] #### [id number] #### [facility] CLIA [id number] [address] [place] [address] [place] AP BLOCK ID [id number] Normal [facility] Comment on above: Order Comment: Speci gabbi Type: TISSUE SPECIMEN [facility] Address: [address] [place] [address] Performed By: #### S #### [facility] CLIA [id number] [address] [place] [address] [place] #### [id number] #### [facility] CLIA [id number] [address] [place] [address] [place] BIOMARKER INTERPRETATION COMMENT AND REFERENCE RANGE Normal [facility] Comment on above: Order Comment: Rikki seo Type: TISSUE SPECIMEN [facility] Address: [address] [place] [address] Result Comment: Inta ct expression of MMR (mismatch repair) proteins by immunohistochemistry is highly correlated with a microsatellite stable result by MSI (microsatellite instability) PCR analysis, and the results from these tests are viewed as clinically equivalent by the FDA. This result excludes at least 90-95% of Fay syndrome. These tests are an imperfect screen because some mutations may not produce loss of immunohistochemical expression. MSI molecular testing can be performed upon request in cases with a high clinical suspicion and appropriate family history. In a phase 2 study of patients with metastatic carcinoma, Keysha et al. ([facility] 2015;372:5259-91) reported that the clinical benefit of pembrolizumab, an anti-programmed 1 (PD-1) immune checkpoint inhibitor, was predicted by the tumor's mismatch repair status; mismatch repair deficient (dMMR) tumors are more responsive to PD-1 blockade than mismatch repair proficient tumors. Pembrolizumab is FDA-approved for treating adult and pediatric patients with unresectable or metastatic solid tumors that display microsatellite instability-high (MSI-H) by PCR assay or dMMR by immunohistochemistry (IHC). The FDA does not distinguish between PCR and IHC-based assays, as these are considered equivalent and complimentary tests. As clinically indicated, and in the appropriate setting of genetic counseling with informed patient consent, further genetic testing may be helpful. For more information or questions about this result, please call the [facility] at [phone]. Performed By: #### S #### [facility] IA [id number] [place] [address] [place] #### [id number] #### [facility] CLIA [id number] [address] [place] [address] [place] BIOMARKER METHOD Immunohistochemistry was performed on formalin fixed paraffin-embedded tissue using the following clones: MLH1 (clone M1 mouse monoclonal); PMS2 ([id number] mouse monoclonal); MSH2 ([id number] mouse monoclonal); MSH6 (SP93 rabbit monoclonal); followed by ultrasensitive bright field detection (Optiview with amplification) from [[employer], [place]]. Normal [facility] Comment on above: Order Comment: Speci men Type: TISSUE SPECIMEN [facility] Address: [address] [place] [address] Performed By: #### S #### [facility] CLIA [id number] [place] [address] [place] #### [id number] #### [facility] CLIA [id number] [address] [place] [address] [place] [facility] CASE NUMBER MMR [id number] Normal [facility] Comment on above: Order Comment: Speci men Type: TISSUE SPECIMEN [facility] Address: [address] [place] [address] Performed By: #### S #### [facility] CLIA [id number] [address] [place] [address] [place] #### [id number] #### [facility] CLIA [id number] [address] [place] [address] [place] FIXATIVE Formalin, 10% Neutra l Buffered Normal [facility] Comment on above: Order Comment: Speci men Type: TISSUE SPECIMEN [facility] Address: [address] [place] [address] Performed By: #### S #### [facility] CLIA [id number] [address] [place] [address] [place] #### [id number] #### [facility] CLIA [id number] [address] [place] [address] [place] MLH1 IMMUNOHISTOCHEMICAL RESULTS Normal/Intact Nuclear Expression Normal [facility] Comment on above: Order Comment: Speci men Type: TISSUE SPECIMEN [facility] Address: [address] [place] [address] Performed By: #### S #### [facility] CLIA [id number] [address] [place] [address] [place] #### [id number] #### [facility] CLIA [id number] [address] [place] [address] [place] MLH1 PROMOTER METHYLATION ASSAY No Normal [facility] Comment on above: Order Comment: Speci men Type: TISSUE SPECIMEN [facility] Address: [address] [place] [address] Performed By: #### S #### [facility] CLIA [id number] [address] [place] [address] [place] #### [id number] #### [facility] CLIA [id number] [address] [place] [address] [place] MMR INTERPRETATION Proficient (Microsatellite Stable) Normal [facility] Comment on above: Order Comment: Speci men Type: TISSUE SPECIMEN [facility] Address: [address] [place] [address] Performed By: #### S #### [facility] CLIA [id number] [address] [place] [address] [place] #### [id number] #### [facility] CLIA [id number] [address] [place] [address] [place] MSH2 IMMUNOHISTOCHEMICAL RESULTS Normal/Intact Nuclear Expression Normal [facility] Comment on above: Order Comment: Speci men Type: TISSUE SPECIMEN Ordering Facility: [facility] Address: [address] [place] [address] Performed By: #### S #### [facility] CLIA [id number] [address] [place] [address] [place] #### [id number] #### [facility] CLIA [id number] [address] [place] [address] [place] MSH6 IMMUNOHISTOCHEMICAL RESULTS Normal/Intact Nuclear Expression Normal [facility] Comment on above: Order Comment: Speci men Type: TISSUE SPECIMEN Ordering Facility: [facility] Address: [address] [place] [address] Performed By: #### S #### [facility] CLIA [id number] [address] [place] [address] [place] #### [id number] #### [facility] CLIA [id number] [address] [place] [address] [place] PMS2 IMMUNOHISTOCHEMICAL RESULTS Normal/Intact Nuclear Expression Normal [facility] Comment on above: Order Comment: Speci men Type: TISSUE SPECIMEN Ordering Facility: [facility] Address: [address] [place] [address] Performed By: #### S #### [facility] CLIA [id number] [address] [place] [address] [place] #### [id number] #### [facility] CLIA [id number] [address] [place] [address] [place] TUMOR TYPE MMR Primary Colorectal Adenocarcinoma [facility] Comment on above: Order Comment: Speci men Type: TISSUE SPECIMEN Ordering Facility: [facility] Address: [address] [place] [address] Performed By: #### S #### [facility] CLIA [id number] [address] [place] [address] [place] #### [id number] #### [facility] CLIA [id number] [address] [place] [address] [place] NURSING PROGon 06-03-2024 NURSING PROG HNO ID: [id number] Author: ORIANA PARISI RN Service: Nursing Author Type: Registered Nurse Type: Nursing Progress Note Filed: 06/03/2024 19:39 Note Text: Transfer Note: PATIENT NAME: Rodrigue Wallace Patient Location: [place] [address]/[place] [address] Room: [place] [address] Patient transferred into room/unit [facility] room 328 in stable condition. Actions taken: No futher actions taken at this time. Will continue to monitor and check with patient. 1800: Spoke with Dr. Alexis Marks regarding concern for patients blood sugars without insulin pump attached. Endocrine is consulted. Dr. Marks passing along to night [facility]. Will page if sugars start rising. Patient has dexcom and will let us know if her sugars start rising. Also gave us code to her phone so we can check if she is sleeping and confirm with our accucheck machine. 1900: Paged [facility] for accucheck and insulin orders overnight. Normal [facility] NURSING PROG HNO ID: [id number] Author: MILDRED LINTON, LAURA Service: Nursing Author Type: Registered Nurse Type: Nursing Progress Note Filed: 06/03/2024 08:59 Note Text: PATIENT EDUCATION TOPIC: PROCEDURE / SURGERY: Pre-op Teaching: Protocols PATIENT NAME: Rodrigue Wallace PATIENT LOCATION: [facility] OR POOL/[facility] OR POOL READINESS TO LEARN COGNITIVE ABILITY: Alert and oriented MOTIVATION TO LEARN: Interested FAMILY SUPPORT: Unable to assess - Family not present INSTRUCTION PROVIDED TO: Patient PATIENT LEARNS BEST BY: Individual Instruction FACTORS AFFECTING LEARNING: None PHYSICAL LIMITATIONS AFFECTING LEARNING: None LEARNING RESPONSE DIAGNOSIS: ADULT: Well Adult PATIENT/FAMILY RESPONSE: Verbalizes understanding of: PRE-OPERATIVE INSTRUCTIONS-Correct action to take to follow pre-operative instructions METHOD OF INSTRUCTION: Individual instruction FOLLOW-UP PLAN: Patient instructed to call with any further issues INSTRUCTIONAL AIDS USED: NA SUPPLEMENTAL MATERIAL PROVIDED TO PATIENT: none REFERRAL (RECOMMENDATION): None Electronically Signed By: Mildred Juan [facility] OPERATIVE NOon 06-03-2024 OPERATIVE NO HNO ID: [id number] Author: JERAMY GARRIDO MD Service: Colorectal Author Type: Physician Type: Operative Report Filed: 06/05/2024 18:40 Note Text: COLON AND RECTAL SURGERY OPERATIVE REPORT PATIENT NAME: Rodrigue Wallace ADMISSION DATE: 06/03/2024 LOG ID: [id number] SURGERY/PROCEDURE DATE: 06/03/2024 INCISION/PROCEDURE START TIME: 12:22 PM INCISION CLOSE/PROCEDURE END TIME: 3:12 PM AGE: [age] year old SEX: female SURGEON(S)/PROCEDURALIS T(S) AND REAL ESTATE PORTFOLIO MANAGER(S): Surgeons and Role: * Jeramy Garrido MD - Primary * Jaclyn Browne MD - Resident - Assisting * Ethel Chowdhury MD - Resident - Assisting No Additional Staff ANESTHESIA: General PREOPERATIVE DIAGNOSIS (ES): Rectosigmoid cancer POSTOPERATIVE DIAGNOSIS (ES): Rectosigmoid cancer NAME OF OPERATION: Laparoscopic Proctosigmoidectomy (Anterior Resection), Laparoscopic Mobilization of Splenic Flexure, Flexible Sigmoidoscopy INDICATIONS FOR PROCEDURE: Rectosigmoid cancer OPERATIVE FINDINGS: Rectosigmoid tattoo and mass, dissection taken down to just above peritoneal reflection to gain adequate distal margin DESCRIPTION OF PROCEDURE: The patient was brought to the operating room, placed under general anesthesia in the lithotomy position. The abdomen was prepped and draped in normal sterile fashion. The patient received appropriate preop antibiotics and DVT prophylaxis. A surgical time-out was performed. The abdomen was entered through a Pfannenstiel incision. The fascia was incised transversely and the muscle was divided in the midline. A 5 mm supraumbilical trocar was then placed directly onto a hand. The GelPort was placed through the Pfannenstiel incision and the abdomen was insufflated to 15 mmHg. 5 mm trocars were placed in the left lower quadrant and right mid abdomen. The colonic mobilization was then commenced by incising the right aspect of the rectosigmoid mesentery at the level of the sacral promontory. The retroperitoneal fusion plane was entered and dissection was carried out in this plane laterally. The left ureter was identified and swept out of harm's way. The inferior mesenteric artery was then isolated and divided at its origin with the LigaSure. Prior to dividing the vessel, the left ureter was confirmed to be safe from harm. The inferior mesenteric vein was then dissected away from the 4th portion of the duodenum, and divided at the inferior border of the pancreas with the LigaSure. The remainder of the retroperitoneal dissection was continued laterally out beyond the colon in a cephalad direction above the apex of the left kidney. The lateral attachments of the sigmoid colon and descending colon were divided. The splenic flexure was mobilized. The lesser sac was entered. The distal omental colic attachments were divided to the mid transverse colon. The remainder of the retroperitoneal attachments were divided until the colon was mobilized sufficiently to bring the splenic flexure of the colon down into the pelvis. The retroperitoneum and vascular pedicles were then inspected. Hemostasis was obtained. The GelPort was removed and the abdomen was desufflated. The specimen was delivered out through the GelPort incision. A point was chosen in the distal descending colon as the proximal margin of the specimen. The mesentery was divided between clamps with 0-Vicryl ties. Prior to ligating the marginal vessel, it was flashed and there was pulsatile arterial inflow. The colon was divided and the 28 EEA anvil was secured within the colon using a 2-0 PDS pursestring suture. The rectum was then mobilized. The rectal mobilization was commenced posteriorly in the mesorectal fascia plane, down to and beyond the curve of the sacrum. The lateral attachments of the rectum were then divided down to the peritoneal reflection. This gained adequate distal margin to our rectosigmoid mass/tattoo. Once the rectum had been mobilized, the green load TA stapler was then passed across the rectum just proximal to the peritoneal reflection and it was divided. The mesorectum was divided with Ligasure. The specimen was passed off the field. The EEA stapler was passed transanally. The stapler spike was delivered out anterior to the transverse staple line. The anvil was secured to the stapler. The stapler was closed under direct visualization to ensure that there was no inclusion of any extraneous tissues. The mesentery of the colon was confirmed to be straight with no twists. There was no tension on the mesentery. The stapler was fired. The donuts were inspected and were intact. With saline in the abdomen, the anastomosis was air-leak tested with vigorous rectal insufflation via flexible sigmoidoscopy and there was no evidence of leak. The anastomosis was visualized with flexible sigmoidoscopy and appeared healthy and patent. The abdomen was irrigated. The peritoneum was reapproximated in the midline with a running 0 Vicr (more content not included)... [facility] SURGICAL PATHOLOGYon 024 BLOCK FOR ADDITIONAL BIOMARKERS/MOLECULAR STUDIES A5 [facility] Comment on above: Order Comment: Speci men Type: TISSUE SPECIMEN Ordering Facility: [facility] Address: [address] [place] [address] Performed By: #### S #### [facility] CLIA [id number] [address] [place] [address] [place] #### [id number] #### [facility] CLIA [id number] [address] [place] [address] [place] CASE REPORT [facility] Comment on above: Order Comment: Speci men Type: TISSUE SPECIMEN Ordering Facility: [facility] Address: [address] [place] [address] Result Comment: Surg [facility] Pathology Report Case: [id number] Authorizing Provider: Jeramy Garrido MD Collected: 06/03/2024 02:02 PM Ordering Location: [facility] Received: 06/03/2024 02:17 PM Operating Room Pathologist: Jean-Pierre Stallings MD Specimen: Colon, Rectum, Resection, left colon and rectum Performed By: #### S #### [facility] CLIA [id number] [address] [place] [address] [place] #### [id number] #### [facility] CLIA [id number] [address] [place] [address] [place] CLINICAL HISTORY Normal [facility] Comment on above: Order Comment: Speci men Type: TISSUE SPECIMEN Ordering Facility: [facility] Address: [address] [place] [address] Result Comment: Pre- op diagnosis: Rectal cancer (HCC) [C20] Performed By: #### S #### [facility] CLIA [id number] [address] [place] [address] [place] #### [id number] #### [facility] CLIA [id number] [address] [place] [address] [place] FINAL DIAGNOSIS Normal [facility] Comment on above: Order Comment: Speci men Type: TISSUE SPECIMEN Ordering Facility: [facility] Address: [address] [place] [address] Result Comment: Left colon and rectum, resection: - Invasive moderately differentiated adenocarcinoma (see synoptic report). - Metastatic adenocarcinoma involving one of twenty-two lymph nodes (10/13). - Submucosal lipoma. - Diverticulosis. JEL 06/08/2024 Performed By: #### S #### [facility] CLIA [id number] [address] [place] [address] [place] #### [id number] #### [facility] CLIA [id number] [address] [place] [address] [place] FINAL PERFORMING LAB Normal [facility] Comment on above: Order Comment: Speci men Type: TISSUE SPECIMEN Ordering Facility: [facility] Address: [address] [place] [address] Result Comment: Diag nostic interpretation performed at [facility], [address] [place] [address] CLIA# [id number] Residential Support Specialist: Sabino Castro M.D. Performed By: #### S #### [facility] CLIA [id number] [address] [place] [address] [place] #### [id number] #### [facility] CLIA [id number] [address] [place], [place] [address] [address] Result Comment: Diag nostic interpretation performed at: [facility], [address] [place] [address], [place] [address] CLIA# [id number] Residential Support Specialist: Prashanth Riggs MD Electronically signed out by: Meseret Garcia MD GROSS DESCRIPTION Normal [facility] Comment on above: Order Comment: Speci men Type: TISSUE SPECIMEN Ordering Facility: [facility] Address: [address] [place] [address] Result Comment: Margret Hernandez olon, Rectum, Resection Received in formalin designated left colon and rectum is a segment of bowel which measures 28.5 cm in length and averages 5.6 cm in circumference. The mesorectal envelope is grossly complete. Photographs are taken. The specimen appears to have been transected distally at or above the anterior peritoneal reflection. The proximal margin is inked blue. The distal margin is inked orange, and the soft tissue margins are inked black. Examination of the mucosal surface reveals a centrally depressed mass with heaped up borders on the anterior to right lateral bowel wall, measuring 1.8 x 0.5 x 0.4 cm and located 4.2 cm from the distal margin and 20.2 cm from the proximal margin. The mass grossly appears to invade into the muscularis propria with no definitive extension into the underlying soft tissue. The serosal surface is grossly uninvolved by mass. The mass is located 3.4 cm from the circumferential (radial) margin and 13.1 cm from the mesenteric margin. A possible alonzo polyp is identified proximal to the mass, measuring 0.7 x 0.4 x 0.3 cm and located 8.3 cm from the distal margin. The polyp grossly involves only the mucosal surface. The remainder of the mucosal surface is alonzo-pink with normal mucosal ridges. Sectioning reveals multiple diverticula. None of the diverticula are grossly abscessed or perforated. Tattoo ink is present within the wall adjacent to the mass. The wall averages 0.4 cm in thickness. The serosal surface is alonzo-pink and smooth with rare adhesions. Sectioning and palpation of the attached soft tissue reveals multiple alonzo lymph nodes measuring up to 0.5 cm in greatest dimension. The mass is totally submitted along with outside medical sales representative sections as follows: A1 perpendicular proximal and distal margins, A2 perpendicular circumferential (radial) margin, A3 perpendicular mesenteric margin, A4 mass in relation to serosal surface (inked green), A5-A6 mass in relation to soft tissue, A7-A8 remainder of mass in relation to adjacent uninvolved bowel, A9 possible polyp bisected and totally submitted, A10-A11 diverticula, A12 uninvolved bowel at 12 cm from distal margin, A13-A19 one lymph node bisected and totally submitted per cassette, A20 two lymph nodes totally submitted, A21 three lymph nodes totally submitted, A22 four lymph nodes totally submitted, A23 four lymph nodes totally submitted. BF June 04, 2024 12:51 PM Gross examination performed at [facility], [address] [place] [address] CLIA # [id number] Performed By: #### S #### [facility] CLIA [id number] [address] [place] [address] [place] #### [id number] #### [facility] CLIA [id number] [address] [place], [place] [address] [address] [place] SYNOPTIC REPORT Normal [facility] Comment on above: Order Comment: Speci men Type: TISSUE SPECIMEN Ordering Facility: [facility] Address: [address] [place] [address] Result Comment: COLO N AND RECTUM: Resection COLON AND RECTUM: RESECTION - All Specimens 8th Edition - Protocol posted: 03/10/2024 SPECIMEN Procedure: Low anterior resection Macroscopic Evaluation of Mesorectum: Complete TUMOR Tumor Site: Rectosigmoid Histologic Type: Adenocarcinoma Histologic Grade: G2, moderately differentiated Tumor Size: Greatest dimension (Centimeters): 1.8 cm Tumor Extent: Invades into muscularis propria Macroscopic Tumor Perforation: Not identified Lymphatic and / or Vascular Invasion: Present Perineural Invasion: Not identified Tumor Budding Score: Low (0-4) Treatment Effect: No known presurgical therapy MARGINS Margin Status for Invasive Carcinoma: All margins negative for invasive carcinoma Distance from Invasive Carcinoma to Radial (Circumferential) Margin: 34 mm Distance from Invasive Carcinoma to Distal Margin: 42 mm Margin Status for Non-Invasive Tumor: All margins negative for high-grade dysplasia / intramucosal carcinoma and low-grade dysplasia REGIONAL LYMPH NODES Regional Lymph Node Status: : Tumor present in regional lymph node(s) Number of Lymph Nodes with Tumor: 1 Number of Lymph Nodes Examined: 22 Tumor Deposits: Not identified pTNM CLASSIFICATION (AJCC 8th Edition) Reporting of pT, pN, and (when applicable) pM categories is based on information available to the pathologist at the time the report is issued. As per the AJCC (Chapter 1, 8th Ed.) it is the managing physician's responsibility to establish the final pathologic stage based upon all pertinent information, including but potentially not limited to this pathology report. pT Category: pT2 pN Category: pN1a Performed By: #### S #### [facility] CLIA [id number] [place] #### [id number] #### [facility] CLIA [id number] [address] [place], [place] [address] [address] [place] TYPE + SCREENon 06-03-2024 ABO A [facility] Comment on above: Order Comment: Speci men Type: BLOOD SPECIMENOrdering Facility: [facility] Address: [address] [place] [address] Performed By: #### T SCR ####[facility] [id number] [place] [address] [place] HISTORICAL AB SCR STATUS Negative [facility] Comment on above: Order Comment: Speci men Type: BLOOD SPECIMENOrdering Facility: [facility] Address: [address] [place] [address] Performed By: #### T SCR ####[facility] [id number] [place] [address] [place] Rh Nom (Bld) Positive [facility] Comment on above: Order Comment: Speci men Type: BLOOD SPECIMENOrdering Facility: [facility] Address: [address] [place] [address] Performed By: #### T SCR ####[facility] [id number] [address] [place] TYPE AND SCREEN EXPIRATION 06/06/2024 23:59 Normal [facility] Comment on above: Order Comment: Speci men Type: BLOOD SPECIMENOrdering Facility: [facility] Address: [address] [place] [address] Performed By: #### T SCR ####[facility] [id number] [place] [address] [place] CBC panel Auto (Bld)on 06-02 Erythrocyte distribution width (RBC) [Ratio] 15.7 % High 11.5-15.0 [facility] Comment on above: Order Comment: Speci men Type: BLOOD SPECIMENOrdering Facility: [facility] Address: [address] [place] [address] Performed By: #### 5 8410-2 ####[facility] [id number] [place] [address] [place] Hematocrit (Bld) [Volume fraction] 35.8 % Low 36.0-46.0 [facility] Comment on above: Order Comment: Speci men Type: BLOOD SPECIMENOrdering Facility: [facility] Address: [address] [place] [address] Performed By: #### 5 8410-2 ####[facility] [id number] [address] [place] Hemoglobin (Bld) [Mass/Vol] 11.6 g/dL Normal 11.5-15.5 [facility] Comment on above: Order Comment: Speci men Type: BLOOD SPECIMENOrdering Facility: [facility] Address: [address] [place] [address] Performed By: #### 5 8410-2 ####[facility] [id number] [place] [address] [place] MCH (RBC) [Entitic mass] 26.7 pg Normal 26.0-34.0 [facility] Comment on above: Order Comment: Speci men Type: BLOOD SPECIMENOrdering Facility: [facility] Address: [address] [place] [address] Performed By: #### 5 8410-2 ####[facility] [id number] [place] [address] [place] MCHC (RBC) [Mass/Vol] 32.4 g/dL Normal 30.5-36.0 [facility] Comment on above: Order Comment: Speci men Type: BLOOD SPECIMENOrdering Facility: [facility] Address: [address] [place] [address] Performed By: #### 5 8410-2 ####[facility] [id number] [place] [address] [place] MCV (RBC) [Entitic vol] 82.5 fL Normal 80.0-100.0 [facility] Comment on above: Order Comment: Speci men Type: BLOOD SPECIMENOrdering Facility: [facility] Address: [address] [place] [address] Performed By: #### 5 8410-2 ####[facility] [id number] [place] [address] [place] Nucleated RBC (Bld) [#/Vol] 10*3/uL Normal <0.01 [facility] Comment on above: Order Comment: Speci men Type: BLOOD SPECIMENOrdering Facility: [facility] Address: [address] [place] [address] Performed By: #### 5 8410-2 ####[facility] [id number] [place] [address] [place] Platelet mean volume (Bld) [Entitic vol] 10.4 fL Normal 9.0-12.7 [facility] Comment on above: Order Comment: Speci men Type: BLOOD SPECIMENOrdering Facility: [facility] Address: [address] [place] [address] Performed By: #### 5 8410-2 ####[facility] [id number] [place] [address] [place] Platelets (Bld) [#/Vol] 351 10*3/uL Normal 150-400 [facility] Comment on above: Order Comment: Speci men Type: BLOOD SPECIMENOrdering Facility: [facility] Address: [address] [place] [address] Performed By: #### 5 8410-2 ####[facility] [id number] [place] [address] [place] RBC (Bld) [#/Vol] 4.34 10*6/uL Normal 3.90-5.20 [facility] Comment on above: Order Comment: Speci men Type: BLOOD SPECIMENOrdering Facility: [facility] Address: [address] [place] [address] Performed By: #### 5 8410-2 ####[facility] [id number] [place] [address] [place] WBC (Bld) [#/Vol] 8.61 10*3/uL Normal 3.70-11.00 [facility] Comment on above: Order Comment: Speci men Type: BLOOD SPECIMENOrdering Facility: [facility] Address: [address] [place] [address] Performed By: #### 5 8410-2 ####[facility] [id number] [place] [address] [place] CNOVon 06-02-2024 CNOV Office Visit ([facility] ) RODRIGUE WALLACE ([id number]) 1950 F Date Time Provider Department 06/02/24 10:40 AM JERAMY GARRIDO [facility] During your visit today, we recorded the following information about you: Temperature Pulse Blood pressure 97 degrees 65/minute 138/59 Sherrill Varela [facility] 06/02/2024 10:35 AM Signed What is the reason for your visit today? Rectal cancer Who is your referring physician? Dr. Hamilton Are you having poor oral intake? NO Have you had unintentional weight loss of 15 lbs/7 Kg in the last 3-6 months? NO Bowels: regular Wound: Temperature: No Drains: No Jeramy Garrido MD 06/02/2024 11:18 AM Signed [facility] June 02, 2024 Rodrigue Wallace 74 year old This consult was requested by Dr. Hamilton and my final recommendations will be communicated to the requesting health care provider by way of the shared medical record for internal providers or letter via the [employer] for external providers. Chief Complaint: rectal cancer History of Present Illness: Rodrigue Wallace is a 74 year old female presents today for evaluation of rectal cancer. Seen by Dr. Alba Hamilton on 04/27/24 CEA on 04/22/24: 7.3 Sigmoidoscopy 05/20/24 - Malignant tumor in the sigmoid colon. Tattooed. - No specimens collected. Colonoscopy 04/21/24 - Dr. Sandy Cristobal - Likely malignant tumor in the proximal rectum, in the recto-sigmoid colon and in the distal sigmoid colon. Biopsied. - Moderate diverticulosis in the sigmoid colon. There was no evidence of diverticular bleeding. - Diverticulosis in the entire examined colon. - The examined portion of the ileum was normal. Pathology DISTAL SIGMOID COLON MASS, BIOPSY: FRAGMENTS OF INVASIVE ADENOCARCINOMA. MRI rectum 05/17/24 No rectal mass identified. Suspicion of mild wall thickening with minimally restricted diffusion in the sigmoid colon which may represent the tumor. Stage: T1/2 N0 MRF: Clear (tumor margin >2 mm from MRF) Sphincter involvement: No. Suspicious extra mesorectal lymph nodes: No. EMVI: No. CT chest 04/28/24 No intrathoracic lymphadenopathy. Multiple small nonspecific scattered bilateral pulmonary nodules (measuring up to 4 mm in size). Of note, 3 mm and 2 mm most inferiorly located nodules are stable compared with limited images through the lung bases on prior CT imaging of the abdomen and pelvis dated 03/05/2024 and 02/26/2024. Mild stable superior endplate deformity and mild chronic loss of height at L1. No thoracic vertebral body compression deformities. Scattered nonspecific tiny sclerotic foci within multiple bilateral ribs and 7 mm sclerotic lesion along the anterior inferior sternum as described. Suspect small nonspecific osseous lucent lesion within the ninth LEFT lateral rib. CT abdomen/pelvis 03/05/24 Falciform hypodensity focal increased fat, posterior diaphragmatic hernia containing stomach, colonic diverticulosis without diverticulitis 74-year-old female with the above history. 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 No date: PAST SURGICAL HISTORY OF Comment: right shoulder surgery 11/02/2015: PAST SURGICAL HISTORY OF; Left Comment: arthroplasty base L thumb. No date: PAST SURGICAL HISTORY OF Comment: all teeth removed for dentures 1990: TOTAL ABDOMINAL HYSTERECT W/WO RMVL TUBE OVARY Comment: RAUL-BSO Current Outpatient Medications Medication Sig Dispense Refill lisinopril (ZESTRIL) 20 mg tablet Take 20 mg by mouth once daily. atorvastatin calcium (ATORVASTATIN ORAL) Take 5 mg by mouth once daily. ergocalciferol, vitamin D2, (VITAMIN D2 ORAL) Take by mouth once daily. fluticasone (FLONASE ALLERGY RELIEF) 50 mcg/actuation nasal spray Use 1 Mobile in each nostril as directed. Nut.Tx.Gluc.Intol,Lac-F ree,Soy (GLUCERNA) liqd Take 8 oz by mouth once daily. iv contrast (will be provided with radiology test) MRI Rectum Inject, intravenously, once for 1 dose. No IV access, insert saline lock prior to the beginning of sedation, infusion, injection of imaging exam. Discontinue saline lo (more content not included)... Normal [facility] Comprehensive metabolic 2000 panelon 06-02-2024 Albumin [Mass/Vol] 4.2 g/dL Normal 3.9-4.9 [facility] Comment on above: Order Comment: Speci men Type: BLOOD SPECIMENOrdering Facility: [facility] Address: [address] [place] [address] Performed By: #### 2 4323-8 ####[facility] LABCLIA [id number] [place] [address] [place] ALP [Catalytic activity/Vol] 95 U/L Normal 34-123 [facility] Comment on above: Order Comment: Speci men Type: BLOOD SPECIMENOrdering Facility: [facility] Address: [address] [place] [address] Performed By: #### 2 4323-8 ####[facility] LABCLIA [id number] [place] [address] [place] ALT [Catalytic activity/Vol] 11 U/L Normal 7-38 [facility] Comment on above: Order Comment: Speci men Type: BLOOD SPECIMENOrdering Facility: [facility] Address: [address] [place] [address] Performed By: #### 2 4323-8 ####[facility] LABCLIA [id number] [place] [address] [place] Anion gap [Moles/Vol] 11 mmol/L Normal 8-15 [facility] Comment on above: Order Comment: Speci men Type: BLOOD SPECIMENOrdering Facility: [facility] Address: [address] [place] [address] Performed By: #### 2 4323-8 ####[facility] LABCLIA [id number] [place] [address] [place] AST [Catalytic activity/Vol] 22 U/L Normal 13-35 [facility] Comment on above: Order Comment: Speci men Type: BLOOD SPECIMENOrdering Facility: [facility] Address: [address] [place] [address] Performed By: #### 2 4323-8 ####[facility] LABCLIA [id number] [place] [address] [place] Bilirubin [Mass/Vol] 0.3 mg/dL Normal 0.2-1.3 [facility] Comment on above: Order Comment: Speci men Type: BLOOD SPECIMENOrdering Facility: [facility] Address: [address] [place] [address] Performed By: #### 2 4323-8 ####[facility] LABCLIA [id number] [place] [address] [place] Calcium [Mass/Vol] 9.2 mg/dL Normal 8.5-10.2 [facility] Comment on above: Order Comment: Speci men Type: BLOOD SPECIMENOrdering Facility: [facility] Address: [address] [place] [address] Performed By: #### 2 4323-8 ####[facility] LABCLIA [id number] [place] [address] [place] Chloride [Moles/Vol] 92 mmol/L Low 98-107 [facility] Comment on above: Order Comment: Speci men Type: BLOOD SPECIMENOrdering Facility: [facility] Address: [address] [place] [address] Performed By: #### 2 4323-8 ####[facility] LABCLIA [id number] [place] [address] [place] CO2 [Moles/Vol] 27 mmol/L Normal 22-30 [facility] Comment on above: Order Comment: Speci men Type: BLOOD SPECIMENOrdering Facility: [facility] Address: [address] [place] [address] Performed By: #### 2 4323-8 ####[facility] LABIA [id number] [place] [address] [place] Creatinine [Mass/Vol] 0.48 mg/dL Low 0.58-0.96 [facility] Comment on above: Order Comment: Speci men Type: BLOOD SPECIMENOrdering Facility: [facility] Address: [address] [place] [address] Performed By: #### 2 4323-8 ####[facility] LABIA [id number] [place] [address] [place] Creatinine and Glomerular filtration rate.predicted panel (S/P/Bld) 100 mL/min/1.73m??? Normal >=60 [facility] Comment on above: Order Comment: Rikki seo Type: BLOOD SPECIMENOrdering Facility: [facility] Address: [address] [place] [address] Result Comment: Ludy mated Glomerular Filtration Rate (eGFR) is calculated using the 2020 CKD-EPI creatinine equation. This equation utilizes serum creatinine, sex, and age as parameters. The creatinine assay has traceable calibration to isotope dilution-mass spectrometry. Refer to KDIGO guidelines for clinical interpretation. In patients with unstable renal function, e.g. those with acute kidney injury, the eGFR may not accurately reflect actual GFR. Performed By: #### 2 4323-8 ####[facility] LABIA [id number] [place] [address] [place] Glucose [Mass/Vol] 114 mg/dL High 74-99 [facility] Comment on above: Order Comment: Speci men Type: BLOOD SPECIMENOrdering Facility: [facility] Address: [address] [place] [address] Result Comment: The [place] [employer] (ADA) provides guidance for cutoff values for fasting glucose and random glucose. The ADA defines fasting as no caloric intake for at least 8 hours. Fasting plasma glucose results between 100 to 125 mg/dL indicate increased risk for diabetes (prediabetes). Fasting plasma glucose results greater than or equal to 126 mg/dL meet the criteria for diagnosis of diabetes. In the absence of unequivocal hyperglycemia, results should be confirmed by repeat testing. In a patient with classic symptoms of hyperglycemia or hyperglycemic crisis, random plasma glucose results greater than or equal to 200 mg/dL meet the criteria for diagnosis of diabetes. Reference: Standards of Medical Care in Diabetes 2016, [place] [employer]. Diabetes Care. 2016.39(Suppl 1). Performed By: #### 2 4323-8 ####[facility] LABCLIA [id number] [place] [address] [place] Potassium [Moles/Vol] 4.4 mmol/L Normal 3.7-5.1 [facility] Comment on above: Order Comment: Speci men Type: BLOOD SPECIMENOrdering Facility: [facility] Address: [address] [place] [address] Performed By: #### 2 4323-8 ####[facility] LABCLIA [id number] [place] [address] [place] Protein [Mass/Vol] 7.1 g/dL Normal 6.3-8.0 [facility] Comment on above: Order Comment: Speci men Type: BLOOD SPECIMENOrdering Facility: [facility] Address: [address] [place] [address] Performed By: #### 2 4323-8 ####[facility] LABCLIA [id number] [place] [address] [place] Sodium [Moles/Vol] 130 mmol/L Low 136-144 [facility] Comment on above: Order Comment: Speci men Type: BLOOD SPECIMENOrdering Facility: [facility] Address: [address] [place] [address] Performed By: #### 2 4323-8 ####[facility] LABCLIA [id number] [place] [address] [place] Urea nitrogen [Mass/Vol] 11 mg/dL Normal 7-21 [facility] Comment on above: Order Comment: Speci men Type: BLOOD SPECIMENOrdering Facility: [facility] Address: [address] [place] [address] Performed By: #### 2 4323-8 ####[facility] LABCLIA [id number] [id number] [id number] [place] ANES POSTPROC EVALon 024 ANES POSTPROC EVAL HNO ID: [id number] Author: KEVIN TALLEY MD Service: Anesthesiology Author Type: Physician Type: Anesthesia Postprocedure Evaluation Filed: 05/20/2024 14:02 Note Text: POST ANESTHESIA EVALUATION NOTE : 1950 Procedure Summary Date: 05/20/24 Room / Location: Procedures Anesthesia Start: 1324 Anesthesia Stop: 1341 Procedure: SIGMOIDOSCOPY Diagnosis: Rectal cancer (HCC) (Personal history of malignant neoplasm of the colon) Scheduled Providers: Jeramy Garriod MD; Kevin Talley MD; Sydney Carbajal APRN.LIBRARY SUPERVISOR; Soumya Isbell RN Responsible Provider: Kevin Talley MD Anesthesia Type: MAC ASA Status: 3 Anesthesia Type: MAC Last Vitals Vitals Value Taken Time BP 105/64 05/20/24 1353 Temp 36.1 ?C (97 ?F) 05/20/24 1343 HR SpO2 69 05/20/24 1353 Resp 12 05/20/24 1353 SpO2 96 % 05/20/24 1353 Post Anesthesia Patient Status Patient Evaluation: PACU. PACU/ICU Patient Condition: stable. Anticipated Disposition: phase 2 then home. Neurological Status: aware and responsive. Pulmonary Status: breathing comfortably on room air Airway Control: returned to baseline unsupported. Cardiovascular Status: stable. Pain Management: satisfactory to patient Postoperative Hydration: acceptable. Intraoperative Events: no significant anesthesia events Recommendation: continue current plan of care. Anesthesia Observations No Documentation SIGNATURE: Kevin Talley MD PATIENT NAME: Rodrigue Wallace DATE: May 20, 2024 TIME: 2:02 PM CSN: [id number] [facility] ANES PRE-OPon 05-20-2024 ANES PRE-OP HNO ID: [id number] Author: KEVIN TALLEY MD Service: Anesthesiology Author Type: Physician Type: Anesthesia Preprocedure Evaluation Filed: 05/20/2024 13:16 Note Text: ANESTHESIOLOGY DAY OF SURGERY NOTE : 1950 Procedure Information Date/Time: 05/20/24 1215 Scheduled providers: Jeramy Garrido MD; Kevin Talley MD; Sydney Carbajal APRN.LIBRARY SUPERVISOR; Soumya Isbell RN Procedure: SIGMOIDOSCOPY Location: Procedures Estimated body mass index is 24.8 kg/m? as calculated from the following: Height as of 04/27/24: 160 cm (5' 3 ). Weight as of 04/27/24: 63.5 kg (140 lb). 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 Tracheostomy tube not present Mallampati: II. TM distance: >3 FB. Neck ROM: full. Mouth opening: adequate. Short neck: no. Thick neck: no Smith present: no DENTAL Dentures, upper: complete. Dentures, lower: complete. Additional exam findings: no II - ANESTHESIA PLAN ASA Score: 3 Anesthetic Plan: MAC NPO Status: adequate Beta Nemesio Monitoring Plan Monitoring plan: Standard ASA. Post Procedure Analgesic Plan Postoperative analgesic plan: parenteral or oral opioids. Informed Consent Anesthetic risks, benefits, alternatives, personnel and consent discussed: yes. Patient / Responsible Constitution Party agrees to proceed: yes Patient / Surrogate agrees to blood products: blood products not planned Significant changes in the patient condition since the History and Physical, not otherwise documented in primary service progress note: no. Potential Anesthesia issues that may suggest increased risk of complications or contraindication to planned procedure: none. Vitals Value Taken Time BP 131/77 05/20/24 1302 Pulse 81 05/20/24 1302 Resp 16 05/20/24 1302 Temp 36.2 ?C (97.1 ?F) 05/20/24 1302 SpO2 98 % 05/20/24 1302 Outpatient Medications as of 05/20/2024 Medication Sig lisinopril (ZESTRIL) 20 mg tablet Take 20 mg by mouth once daily. fluticasone (FLONASE ALLERGY RELIEF) 50 mcg/actuation nasal spray Use 1 Mobile in each nostril as directed. rosuvastatin (CRESTOR) 5 mg tablet amLODIPine (NORVASC) 10 mg tablet NOVOLOG U-100 INSULIN ASPART 100 unit/mL Use via insulin pump, 30 units daily cholecalciferol (VITAMIN D3) 1,000 unit tab Take 2 tablets by mouth once daily. esomeprazole (NEXIUM) 40 mg capsule Take 1 capsule by mouth once daily. sertraline (ZOLOFT) 50 mg tablet Take 1 tablet by mouth once daily. mometasone (NASONEX) 50 mcg/actuation nasal spray Use 2 Sprays in the nose once daily. Aspirin 81 mg ORAL Tab Take one(1) tablet daily. atorvastatin calcium (ATORVASTATIN ORAL) Take 5 mg by mouth once daily. ergocalciferol, vitamin D2, (VITAMIN D2 ORAL) Take by mouth once daily. Nut.Tx.Gluc.Intol,Lac-F ree,Soy (GLUCERNA) liqd Take 8 oz by mouth once daily. iv contrast (will be provided with radiology test) MRI Rectum Inject, intravenously, once for 1 dose. No IV access, insert saline lock prior to the beginning of sedation, infusion, injection of imaging exam. Discontinue saline lock post exam. If Pt has a central line or IVAD, may access for administration according to line specific nursing protocol. Once exam is complete flush line and de-access according to line specific nursing protocol in the MR contrast administration guidelines link. enteric contrast (will be provided with radiology test) MRI RECTUM WO/W. Administer, As Directed One Time Only, via Oral, Rectal, both Oral and Rectal, Enteric Tube, Stoma or Indwelling Catheter, Enteric Contrast as designated per enteric contrast guidelines lactose-reduced food (ENSURE CLEAR ORAL) Take by mouth once daily. ferrous sulfate 325 mg (65 mg iron) tablet Take 1 tablet by mouth. coenzyme Q10 30 mg capsule Take 30 mg by mouth. lisinopril (PRINIVIL) 10 mg tablet Take 1 tablet by mouth once daily. Facility-Administered Medications as of 05/20/2024 Medication Dose Route Frequency lidocaine (PF) 10 mg/mL (1 %) 1-2 mg injection (XYLOCAINE) 0.1-0.2 mL INTRADERMAL PRN lactated ringers iv infusion 30 mL/hr INTRAVENOUS CONTINUOUS NaCl 0.9% iv infusion 30 mL/hr INTRAVENOUS CONTINUOUS I have interviewed and examined the patient. I have reviewed the medical record and/or the pre-anesthesia evaluation, pertinent labs, and test results. This contains updated information obtained within 48 hours of Surgery/Procedure. 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 Refer to note in patient chart for documentation of history and physical. Last Colonoscopy: within the past month. Referring Physician: Pamela Hamilton MD (Referring MD) Medicines: Monitored Anesthesia Care Complications: No immediate complications. Requesting Provider: Procedure: Pre-Anesthesia Assessment: - Prior to the procedure, a History and Physical was performed, and patient medications and allergies were reviewed. The patient is competent. The risks and benefits of the procedure and the sedation options and risks were discussed with the patient. All questions were answered and informed consent was obtained. Patient identification and proposed procedure were verified by the physician and the nurse in the pre-procedure area in the endoscopy suite. Mental Status Examination: normal. Airway Examination: normal oropharyngeal airway and neck mobility. ASA Grade Assessment: III - A patient with severe systemic disease. After reviewing the risks and benefits, the patient was deemed in satisfactory condition to undergo the procedure. The anesthesia plan was to use monitored anesthesia care (MAC). Immediately prior to administration of medications, the patient was re-assessed for adequacy to receive sedatives. The heart rate, respiratory rate, oxygen saturations, blood pressure, adequacy of pulmonary ventilation, and response to care were monitored throughout the procedure. The physical status of the patient was re-assessed after the procedure. After obtaining informed consent, the scope was passed under direct vision. The Colonoscope was introduced through the anus and advanced to the sigmoid colon. The flexible sigmoidoscopy was accomplished without difficulty. The patient tolerated the procedure well. The quality of the bowel preparation was good. Moderate Sedation: MAC anesthesia was administered by the anesthesia team. Total Procedure Duration: 0 hours 10 minutes 16 seconds Findings: The perianal and digital rectal examinations were normal. A fungating mass was found in the sigmoid colon. Area was tattooed with an injection of Spot (carbon black). 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 Tattooed. - No specimens collected. Recommendation: - Discharge patient to home. - Resume previous diet. Procedure Code(s): --- Professional --- 95599, Sigmoidoscopy, flexible; with directed submucosal injection(s), any substance CPT copyright 2020 [place] [employer]. All rights reserved. The codes documented in this report are preliminary and upon digital content coordinator review may be revised to meet current compliance requirements. Attending Participation: I was present and participated during the entire procedure, including non-pompa portions. Scope In: 1:28:35 PM Scope Out: 1:38:51 PM MD Jeramy Clifton MD 05/20/2024 1:42:04 PM This report has been signed electronically by Jeramy Garrido MD Number of Addenda: 0 Note Initiated On: 05/20/2024 1:16 PM Estimated Blood Loss: Estimated blood loss was minimal. Normal [facility] Flexible sigmoidoscopy study on 05-20-2024 [facility] Gastrointestinal Endoscopy Patient Name: Rodrigue Wallace Procedure Date: 05/20/2024 1:16 PM Date of : 1950 Admit Type: Outpatient Age: 74 Room: [place] [address] Gender: Female Note Status: Finalized Attending MD: Jeramy Garrido MD, [id number] Procedure: Flexible Sigmoidoscopy Indications: Personal history of malignant neoplasm of the colon Providers: Jeramy Garrido MD Patient Profile: This is a 74 year old female. Refer to note in patient chart for documentation of history and physical. Last Colonoscopy: within the past month. Referring Physician: Pamela Hamilton MD (Referring MD) Medicines: Monitored Anesthesia Care Complications: No immediate complications. Requesting Provider: Procedure: Pre-Anesthesia Assessment: - Prior to the procedure, a History and Physical was performed, and patient medications and allergies were reviewed. The patient is competent. The risks and benefits of the procedure and the sedation options and risks were discussed with the patient. All questions were answered and informed consent was obtained. Patient identification and proposed procedure were verified by the physician and the nurse in the pre-procedure area in the endoscopy suite. Mental Status Examination: normal. Airway Examination: normal oropharyngeal airway and neck mobility. ASA Grade Assessment: III - A patient with severe systemic disease. After reviewing the risks and benefits, the patient was deemed in satisfactory condition to undergo the procedure. The anesthesia plan was to use monitored anesthesia care (MAC). Immediately prior to administration of medications, the patient was re-assessed for adequacy to receive sedatives. The heart rate, respiratory rate, oxygen saturations, blood pressure, adequacy of pulmonary ventilation, and response to care were monitored throughout the procedure. The physical status of the patient was re-assessed after the procedure. After obtaining informed consent, the scope was passed under direct vision. The Colonoscope was introduced through the anus and advanced to the sigmoid colon. The flexible sigmoidoscopy was accomplished without difficulty. The patient tolerated the procedure well. The quality of the bowel preparation was good. Moderate Sedation: MAC anesthesia was administered by the anesthesia team. Total Procedure Duration: 0 hours 10 minutes 16 seconds Findings: The perianal and digital rectal examinations were normal. A fungating mass was found in the sigmoid colon. Area was tattooed with an injection of Spot (carbon black). 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 Tattooed. - No specimens collected. Recommendation: - Discharge patient to home. - Resume previous diet. Procedure Code(s): --- Professional --- 76120, Sigmoidoscopy, flexible; with directed submucosal injection(s), any substance CPT copyright 2020 [employer]. All rights reserved. The codes documented in this report are preliminary and upon digital content coordinator review may be revised to meet current compliance requirements. Attending Participation: I was present and participated during the entire procedure, including non-pompa portions. Scope In: 1:28:35 PM Scope Out: 1:38:51 PM MD Jeramy Clifton MD 05/20/2024 1:42:04 PM This report has been signed electronically by Jeramy Garrido MD Number of Addenda: 0 Note Initiated On: 05/20/2024 1:16 PM Estimated Blood Loss: Estimated blood loss was minimal. PROVATION [facility] Radiology Study observation (narrative) [facility] GLUCOSE, BLOOD (POC)on 05-20 Glucose [Mass/Vol] 163 mg/dL Abnormal 74 - 99 mg/dL [facility] Comment on above: Location:[facility] [address] [address], [place], [address] The Accu-Chek Inform II glucose meter has not been approved for testing on patients receiving intensive medical intervention or therapy and results from this point of care glucose test should not be used for patient management decisions in these cases. Inaccurate results may also occur from other interfering factors, such as N-acetylcysteine (blood concentrations of greater than 5mg/dL), galactose, extremes of hematocrit (<10 or >65), or high doses of ascorbic acid (vitamin C) greater than 3mg/dL. Consider alternate testing mechanisms (e.g. core lab, blood gas instrument) in the above situations. Interpretation and review of laboratory results Abnormal [facility] HISTORY PHYSICALon HISTORY PHYSICAL HNO ID: [id number] Author: LEE PATEL MD Service: Colorectal Author Type: Fellow Type: H&P Filed: 05/20/2024 13:20 Note Text: ENDO HISTORY AND PHYSICAL EXAMINATION SHORT FORM EVALUATION DATE: 05/20/2024 EVALUATION TIME: 1:19 PM CHIEF COMPLAINT: Rectosigmoid mass HPI: This is a 74 year old female who presents with rectosigmoid mass. Here to evaluate location and place tattoo for operative planning. 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 No date: PAST SURGICAL HISTORY OF Comment: right shoulder surgery 11/02/2015: PAST SURGICAL HISTORY OF; Left Comment: arthroplasty base L thumb. No date: PAST SURGICAL HISTORY OF Comment: all teeth removed for dentures 1990: TOTAL ABDOMINAL HYSTERECT W/WO RMVL TUBE OVARY Comment: RAUL-BSO SOCIAL HISTORY: Social History Tobacco Use Smoking status: Former Current packs/day: 0.00 Average packs/day: 1 pack/day for 30.0 years (30.0 ttl pk-yrs) Types: Cigarettes Start date: 09/22/1972 Quit date: 09/22/2002 Years since quittin.6 Smokeless tobacco: Never Vaping Use Vaping status: Never Used Substance Use Topics Alcohol use: Not Currently Drug use: No FAMILY HISTORY: FAMILY HISTORY Problem Relation Age of Onset other (Other [Other]) Unknown No known family history of breast cancer Thyroid Daughter Thyroid Sister Thyroid Maternal Aunt Diabetes Mother Type 2 DM, age 96 Emphysema Father age 76 Colon Cancer Sister Heart Sister Cancer Brother lung cancer Coronary Artery Disease Brother other (prediabetic [Other]) Brother ALLERGIES: ALLERGIES Allergen Reactions Fosamax [Alendronat* Other: See Comments Leg cramps, severe Macrodantin [Nitrof* Vomiting Penicillins Itching MEDICATIONS: Prior to Admission Medications: lisinopril (ZESTRIL) 20 mg tabletTake 20 mg by mouth once daily.Disp: Rfl: fluticasone (FLONASE ALLERGY RELIEF) 50 mcg/actuation nasal sprayUse 1 Mobile in each nostril as directed.Disp: Rfl: rosuvastatin (CRESTOR) 5 mg tabletDisp: Rfl: amLODIPine (NORVASC) 10 mg tabletDisp: Rfl: NOVOLOG U-100 INSULIN ASPART 100 unit/mLUse via insulin pump, 30 units dailyDisp: 6 VialRfl: 3 cholecalciferol (VITAMIN D3) 1,000 unit tabTake 2 tablets by mouth once daily.Disp: Rfl: 0 esomeprazole (NEXIUM) 40 mg capsuleTake 1 capsule by mouth once daily.Disp: 90 capsuleRfl: 3 sertraline (ZOLOFT) 50 mg tabletTake 1 tablet by mouth once daily.Disp: Rfl: 0 mometasone (NASONEX) 50 mcg/actuation nasal sprayUse 2 Sprays in the nose once daily.Disp: Rfl: 0 Aspirin 81 mg ORAL TabTake one(1) tablet daily.Disp: 0Rfl: 0 atorvastatin calcium (ATORVASTATIN ORAL)Take 5 mg by mouth once daily.Disp: Rfl: ergocalciferol, vitamin D2, (VITAMIN D2 ORAL)Take by mouth once daily.Disp: Rfl: Nut.Tx.Gluc.Intol,Lac-F ree,Soy (GLUCERNA) liqdTake 8 oz by mouth once daily.Disp: Rfl: iv contrast (will be provided with radiology test)MRI Rectum Inject, intravenously, once for 1 dose. No IV access, insert saline lock prior to the beginning of sedation, infusion, injection of imaging exam. Discontinue saline lock post exam. If Pt has a central line or IVAD, may access for administration according to line specific nursing protocol. Once exam is complete flush line and de-access according to line specific nursing protocol in the MR contrast administration guidelines link.Disp: 1 EachRfl: 0 enteric contrast (will be provided with radiology test)MRI RECTUM WO/W. Administer, As Directed One Time Only, via Oral, Rectal, both Oral and Rectal, Enteric Tube, Stoma or Indwelling Catheter, Enteric Contrast as designated per enteric contrast guidelinesDisp: 1 EachRfl: 0 lactose-reduced food (ENSURE CLEAR ORAL)Take by mouth once daily.Disp: Rfl: ferrous sulfate 325 mg (65 mg iron) tabletTake 1 tablet by mouth.Disp: Rfl: coenzyme Q10 30 mg capsuleTake 30 mg by mouth.Disp: Rfl: lisinopril (PRINIVIL) 10 mg tabletTake 1 tablet by mouth once daily.Disp: 100 tabletRfl: 3 Current Facility-Administered Medications Medication Dose Route Frequency lidocaine (PF) 10 mg/mL (1 %) 1-2 mg injection (XYLOCAINE) (more content not included)... Normal [facility] MRI RECTUM WO/W IVCONon 08-2 MRI RECTUM WO/W IVCON * * *Final Report* * * DATE OF EXAM: May 17 2024 2:49PM LUM 0754 - MRI RECTUM WO/W IVCON / PROCEDURE REASON: Rectal cancer (HCC) * * * * Physician Interpretation * * * * MRI OF THE PELVIS WITHOUT AND WITH CONTRAST: RECTAL CANCER STAGING CLINICAL HISTORY: Rectal tumor histology: Adenocarcinoma Prior chemotherapy or radiation: No Other: N/A COMPARISON: None. TECHNIQUE: Magnet: Siemens Altea 1.5T scanner. Multiplanar MRI with multiple sequences before and after contrast. Contrast: IV: 13 ml of Dotarem : ml of : ml of RESULT: PRIMARY TUMOR: MORPHOLOGY, LOCATION, AND CHARACTERISTICS: No rectal identified. There is suspicion of mild wall thickening with minimally restricted diffusion in the sigmoid colon which may represent the tumor (5:19). Distance to the anal verge: more than 20 cm Distance to the top of sphincter complex/anorectal junction: more than 20 cm Relationship to anterior peritoneal reflection: Above Craniocaudal length: 2.6 cm (5:19) Tumor location: Sigmoid colon Morphology: Partly annular Mucinous: No mucin MR-T stage: T1/2 (tumor confined to sigmoid wall) Structures with possible invasion by T4b tumors: N/A Invasion of anal sphincter complex: Absent. Anal canal involvement: None. Comments: N/A TUMOR DEPOSITS AND EXTRAMURAL VASCULAR INVASION (EMVI): Tumor deposits:(separate from metastatic lymph nodes): No. EMVI: No. MESORECTAL FASCIA (MRF): Shortest distance of extraluminal part of the tumor to MRF: Tumor does not extend into the mesorectal fat. Tumor extension through the peritonealized portion of the rectum into peritoneal fat: No extension into peritoneal fat. Is there a separate tumor deposit, LN or EMVI threatening (?1mm and ?2 mm) or invading (< 1 mm) the MRF? No. Comments: N/A LYMPH NODES: Mesorectal/superior rectal lymph nodes and/or tumor deposits: N- (no visible lymph nodes/deposits) N Stage: N0 Suspicious extra mesorectal lymph nodes: None OTHER FINDINGS: Colonic diverticulosis without findings of acute diverticulitis. Status post hysterectomy. The study was interpreted by Dr. Radha Herrmann a member of the rectal cancer multidisciplinary tumor board. IMPRESSION: No rectal mass identified. Suspicion of mild wall thickening with minimally restricted diffusion in the sigmoid colon which may represent the tumor. Stage: T1/2 N0 MRF: Clear (tumor margin >2 mm from MRF) Sphincter involvement: No. Suspicious extra mesorectal lymph nodes: No. EMVI: No. v 02/21/21 Contact Officer: HANANE Transcribe Date/Time: May 18 2024 2:04P Dictated by : RADHA HERRMANN MD This examination was interpreted and the report reviewed and electronically signed by: RADHA HERRMANN MD on May 18 2024 2:32PM EST [id number] [facility] NURSING PROGon 05-17-2024 NURSING PROG HNO ID: [id number] Author: JACK BULL RN Service: Radiology Author Type: Registered Nurse Type: Nursing Progress Note Filed: 05/17/2024 13:26 Note Text: Radiology Service Progress Note DATE OF SERVICE: May 17, 2024 TIME: 1:25 PM PATIENT WEIGHT: 140LBS PATIENT IDENTITY VERIFICATION COMPLETED USING TWO (2) STANDARD IDENTIFIERS: Name and Date of confirmed by patient verbally. FALL SCREENING: Has the patient had 2 falls in the last year or 1 fall with injury or currently using an Ambulatory Assistive Device (Walker, Cane, Wheelchair, Crutches, etc.)? No PATIENT GENDER DATA: Female. status: : No status: N/A ALLERGIES: Reviewed and unchanged CONTRAST ALLERGY: No EXAM: MRI - CONTRAST TYPE: GROUP II IV SITE: Ambulatory: A peripheral IV was started in the Right antecubital site with a Angio cath/Butterfly: 22 gauge. IV SITE APPEARANCE: Clean,Dry and Intact SIGNATURE: Jack Bull RN PATIENT NAME: Rodrigue Anisa Maurice DATE: May 17, 2024 TIME: 1:25 PM [facility] Tele[facility] ([facility]) RODRIGUE WALLACE ([id number]) 1950 F Date Time Provider Department 05/10/24 PAMELA HAMILTON [facility] During your visit today, we recorded the following information about you: Viet Judge RN 05/10/2024 4:33 PM Signed Called. No answer. Left voice message that due to an unforseen schedule change in Dr Hamilton's schedule, she is no longer available to perform your scope on May 20. Dr Garrido will now perform your scope on May 20. If you do not want to proceed with Dr Garrido, then please call the office back to reschedule. She will also call the office back Any questions or concerns. Allergies As of Date: 05/10/2024 Noted Allergy Reaction FOSAMAX (ALENDRONATE SODIUM) 11/08/2014 14 - Other: See Comments Comments: Leg cramps, severe MACRODANTIN (NITROFURANTOIN MACRO*05/23/2016 11 - Vomiting PENICILLINS 06/28/2005 9 - Itching Date Reviewed: 04/28/2024 Reviewed by: Pamela Hamilton MD - Fully Assessed Prescriptions as of 05/10/2024 - lisinopril (ZESTRIL) 20 mg tablet Take 20 mg by mouth once daily. - atorvastatin calcium (ATORVASTATIN ORAL) Take 5 mg by mouth once daily. - ergocalciferol, vitamin D2, (VITAMIN D2 ORAL) Take by mouth once daily. - fluticasone (FLONASE ALLERGY RELIEF) 50 mcg/actuation nasal spray Use 1 Mobile in each nostril as directed. - Nut.Tx.Gluc.Intol,Lac-F ree,Soy (GLUCERNA) liqd Take 8 oz by mouth once daily. - iv contrast (will be provided with radiology test) MRI Rectum Inject, intravenously, once for 1 dose. No IV access, insert saline lock prior to the beginning of sedation, infusion, injection of imaging exam. Discontinue saline lock post exam. If Pt has a central line or IVAD, may access for administration according to line specific nursing protocol. Once exam is complete flush line and de-access according to line specific nursing protocol in the MR contrast administration guidelines link. - enteric contrast (will be provided with radiology test) MRI RECTUM WO/W. Administer, As Directed One Time Only, via Oral, Rectal, both Oral and Rectal, Enteric Tube, Stoma or Indwelling Catheter,? Enteric Contrast as designated per enteric contrast guidelines - lactose-reduced food (ENSURE CLEAR ORAL) Take by mouth once daily. - ferrous sulfate 325 mg (65 mg iron) tablet Take 1 tablet by mouth. - rosuvastatin (CRESTOR) 5 mg tablet - coenzyme Q10 30 mg capsule Take 30 mg by mouth. - amLODIPine (NORVASC) 10 mg tablet - NOVOLOG U-100 INSULIN ASPART 100 unit/mL Use via insulin pump, 30 units daily - lisinopril (PRINIVIL) 10 mg tablet Take 1 tablet by mouth once daily. - cholecalciferol (VITAMIN D3) 1,000 unit tab Take 2 tablets by mouth once daily. - esomeprazole (NEXIUM) 40 mg capsule Take 1 capsule by mouth once daily. - sertraline (ZOLOFT) 50 mg tablet Take 1 tablet by mouth once daily. - mometasone (NASONEX) 50 mcg/actuation nasal spray Use 2 Sprays in the nose once daily. - Aspirin 81 mg ORAL Tab Take one(1) tablet daily. 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] 05/16/2006 VITAMIN D DEFICIENCY NOS [E55.9] 06/13/2008 Diabetes mellitus type 1, uncontrolled, without*12/18/2009 08/23/2016 Goiter [E04.9] 12/18/2009 TMJ Disorder 02/02/2010 Hypercalcemia [E83.52] 04/20/2010 Arthritis [M19.90] 11/02/2012 Primary osteoarthritis of first carpometacarpal* 016 Localized superficial swelling, mass, or lump [*10/02/2015 [...] polyps [Z86.010] 04/18/2017 Hiatal hernia [K44.9] 04/15/2019 HTN (hypertension) [I10] 04/21/2024 Encounter Status:Closed by VIET JUDGE on 05/10/24 Normal [facility] CT CHEST WO IVCONon 04-28-20 CT CHEST WO IVCON * * *Final Report* * * DATE OF EXAM: Apr 28 2024 5:04PM [facility] 0541 - CT CHEST WO IVCON / PROCEDURE REASON: Rectal cancer (HCC) * * * * Physician Interpretation * * * * EXAMINATION: CHEST CT WITHOUT CONTRAST CLINICAL HISTORY: Rectal cancer (HCC) Technique: Spiral CT acquisition of the chest from the thoracic inlet to the upper abdomen without contrast. MQ: [id number] CT Radiation dose: Integrated Dose-length product (DLP) for this visit = 254 mGy*cm CT Dose Reduction Employed: Automated exposure control(AEC) and iterative recon Comparison: Previous outside CT imaging of the abdomen and pelvis dated 03/05/2024 and 02/26/2024, previous outside thoracic spine plain film imaging dated 08/10/2024 as well as thoracic spine MRI dated 03/13/2015.. No prior CT imaging of the chest is available for comparison. RESULT: Limitations: None. Lines, tubes, and devices: None. Lung parenchyma and airways: No central endobronchial lesion. Mild biapical fibrosis with small RIGHT apical bleb. No consolidation. Few tiny fissural based densities, likely intrapulmonary lymph nodes, and scattered nonspecific bilateral pulmonary nodules including: -2 mm RIGHT upper lobe nodule (302:50). -3 mm LEFT upper lobe nodule (302:50). -2 mm posterior RIGHT lower lobe nodule (302:80). -4 mm anterolateral LEFT upper lobe nodule (302:74). -4 mm anterior LEFT lower lobe fissural-based nodule (302:113). -4 mm anterior RIGHT lower lobe nodule (302:121). -2 mm posterior RIGHT lower lobe nodule (302:188), stable compared with included images of the lung bases on CT imaging of the abdomen and pelvis dated 03/05/2024. -3 mm RIGHT lower lobe nodule (302:160), stable compared with previous CT imaging of the abdomen and pelvis including the lung bases dated 02/26/2024 (series 3 image 3). Pleural space: No pleural effusion. No pleural thickening. Lower neck, lymph nodes, and mediastinum: The imaged thyroid gland is normal. No lymphadenopathy by CT size criteria although evaluation for hilar lymph nodes is somewhat limited due to lack of contrast. Few nonenlarged RIGHT cardiophrenic nodes measuring up to 5 mm in short axis. Heart, pericardium, and thoracic vessels: Thoracic aortic and coronary arterial atherosclerotic calcifications. The thoracic aorta and main pulmonary artery are normal in caliber. The cardiac chambers are normal in size. No pericardial effusion. Bones and soft tissues: Mild degenerative changes in the thoracic spine. Patchy areas of osteopenia. Stable superior endplate deformity with mild loss of vertebral body height at L1. Thoracic vertebral body heights are maintained. Nonspecific anterior inferior sternal 7.3 mm sclerotic lesion (602:62). Possible small ill-defined lucent lesion within the ninth LEFT lateral rib (602:109), not well seen on axial imaging. Scattered nonspecific tiny less than 5 mm sclerotic foci within several ribs bilaterally including the anterior RIGHT first rib (301:18), and anterior third, fourth, and fifth RIGHT ribs (301:114, 134, 138, 602:38). Tiny sclerotic foci also noted within the anterior LEFT first, second, fourth, and fifth ribs (301:15, 57, 104, 107, and 128). Bilateral breast implants. Upper abdomen: Stable moderate hiatal hernia. Stable hepatic hypodense lesion adjacent to the falciform ligament, a frequent site of focal fatty infiltration. No new acute process. Localizer images: No additional findings. IMPRESSION: No intrathoracic lymphadenopathy. Multiple small nonspecific scattered bilateral pulmonary nodules (measuring up to 4 mm in size). Of note, 3 mm and 2 mm most inferiorly located nodules are stable compared with limited images through the lung bases on prior CT imaging of the abdomen and pelvis dated 03/05/2024 and 02/26/2024. Mild stable superior endplate deformity and mild chronic loss of height at L1. No thoracic vertebral body compression deformities. Scattered nonspecific tiny sclerotic foci within multiple bilateral ribs and 7 mm sclerotic lesion along the anterior inferior sternum as described. Suspect small nonspecific osseous lucent lesion within the ninth LEFT lateral rib. Contact [facility] Transcribe Date/Time: May 04 2024 11:18A Dictated by : SHYANNE VALDERRAMA MD This examination was interpreted and the report reviewed and electronically signed by: SHYANNE VALDERRAMA MD on May 04 2024 2:15PM EST [id number] [facility] 04-27-2024 [facility] Office Visit ([facility] ) RODRIGUE WALLACE ([id number]) 1950 F Date Time Provider Department 04/27/24 2:20 PM PAMELA HAMILTON [facility] During your visit today, we recorded the following information about you: Pulse Blood pressure Weight Height 74/minute 134/70 63.5 kg 1.6 m Pamela Hamilton MD 04/28/2024 4:16 PM Signed COLORECTAL SURGERY April 27, 2024 Rodrigue Wallace 74 year old This consult was requested by Dr. Cristobal and my final recommendations will be communicated to the requesting health care provider by way of the shared medical record for internal providers or letter via the [employer] [place] Postal [employer] for external providers. Chief Complaint: rectosigmoid cancer History of Present Illness: Rodrigue Wallace is a 74 year old female presents today for evaluation of rectosigmoid cancer. Symptoms: Hospital stays for diverticulitis prompting colonoscopy Bleeding: yes Change in stool/constipation: yes Nausea/emesis: yes Abdominal pain: yes All symptoms were related to diverticulitis and have since resolved Weight change in last 6 months: 25 lbs in last 6 months Functional status: independent PMH: no hx [place], CVA, VTE. OA on narcotics until recently. DM type 1. PSH: prior ortho and spine procedures including ALIF in the 2002. RAUL. Prior pelvic radiation: no Family history of CRC: yes in her sister diagnosed in her 70s Endoscopist: Argenis Cristobal Medical oncologist: TBAngelo Radiation oncologist: TBD Colonoscopy 04/21/24 - Dr. Sandy Cristobal - Likely malignant tumor in the proximal rectum, in the recto-sigmoid colon and in the distal sigmoid colon. Biopsied. - Moderate diverticulosis in the sigmoid colon. There was no evidence of diverticular bleeding. - Diverticulosis in the entire examined colon. - The examined portion of the ileum was normal. Pathology DIAGNOSIS B. DISTAL SIGMOID COLON MASS, BIOPSY: FRAGMENTS OF INVASIVE ADENOCARCINOMA. 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 No date: PAST SURGICAL HISTORY OF Comment: right shoulder surgery 11/02/2015: PAST SURGICAL HISTORY OF; Left Comment: arthroplasty base L thumb. No date: PAST SURGICAL HISTORY OF Comment: all teeth removed for dentures 1990: TOTAL ABDOMINAL HYSTERECT W/WO RMVL TUBE OVARY Comment: RAUL-BSO Current Outpatient Medications Medication Sig Dispense Refill lisinopril (ZESTRIL) 20 mg tablet Take 20 mg by mouth once daily. atorvastatin calcium (ATORVASTATIN ORAL) Take 5 mg by mouth once daily. ergocalciferol, vitamin D2, (VITAMIN D2 ORAL) Take by mouth once daily. fluticasone (FLONASE ALLERGY RELIEF) 50 mcg/actuation nasal spray Use 1 Mobile in each nostril as directed. Nut.Tx.Gluc.Intol,Lac-F ree,Soy (GLUCERNA) liqd Take 8 oz by mouth once daily. ferrous sulfate 325 mg (65 mg iron) tablet Take 1 tablet by mouth. coenzyme Q10 30 mg capsule Take 30 mg by mouth. amLODIPine (NORVASC) 10 mg tablet NOVOLOG U-100 INSULIN ASPART 100 unit/mL Use via insulin pump, 30 units daily 6 Vial 3 cholecalciferol (VITAMIN D3) 1,000 unit tab Take 2 tablets by mouth once daily. 0 esomeprazole (NEXIUM) 40 mg capsule Take 1 capsule by mouth once daily. 90 capsule 3 sertraline (ZOLOFT) 50 mg tablet Take 1 tablet by mouth once daily. 0 Aspirin 81 mg ORAL Tab Take one(1) tablet daily. 0 0 iv contrast (will be provided with radiology test) MRI Rectum Inject, intravenously, once for 1 dose. No IV access, insert saline lock prior to the beginning of sedation, infusion, injection of imaging exam. Discontinue saline lock post exam. If Pt has a central line or IVAD, may access for administration according to line specific nursing protocol. Once exam is complete flush line and de-access according to line specific nursing protocol in the MR contrast administration guidelines link. 1 Each 0 enteric contra (more content not included)... Normal [facility] CEA SerPl-mCncon 04-22-2024 Carcinoembryonic Ag [Mass/Vol] 7.3 ng/mL High <=2.9 [facility] Comment on above: Order Comment: Speci men Type: BLOOD SPECIMENOrdering Facility: [facility] Address: [address] [place] [address], [place] [address] Result Comment: Carc inoembryonic antigen test is used as an aid in monitoring response to treatment or recurrence in patients with established colorectal, breast, lung, prostatic, pancreatic, and ovarian carcinomas. Clinical correlation is required. The Carcinoembryonic antigen test was performed using the [employer] Unicel DXI paramagnetic particle chemiluminescent immunoassay method. Results obtained with different assay methods or kits cannot be used interchangeably. Performed By: #### 2 039-6 ####[facility] LABCLIA [id number] [place] [address] [place] CELIAC DISEASE COMPREHENSIVE PANELon 04-21-2024 IMMUNOGLOBULIN A 135 mg/dL Normal 70-320 [facility] Comment on above: Order Comment: FASTI NG:NO FASTING: NO Performed By: #### 1 9955 #### [facility]/[place] [id number] [facility] [address] [place] Insurance Biller: Vignesh Clemons M.D.,PhD INTERPRETATION see note Normal [facility] Comment on above: Order Comment: FASTI NG:NO FASTING: NO Result Comment: No s erological evidence of celiac disease. tTG IgA may normalize in individuals with celiac disease who maintain a gluten-free diet. Consider HLA DQ2 and DQ8 testing to rule out celiac disease. Celiac disease is extremely rare in the absence of DQ2 or DQ8. Performed By: #### 1 9955 #### [facility]/[place] [id number] [facility] [place], [place] Insurance Biller: Vignesh Clemons M.D.,PhD TISSUE TRANSGLUTAMINASE AB, IGA <1.0 Normal <15.0 [facility] Comment on above: Order Comment: FASTI NG:NO FASTING: NO Result Comment: Value Interpretation <15.0 Antibody not detected > or = 15.0 Antibody detected Performed By: #### 1 9955 #### [facility]/[place] [id number] [facility] [place], [place] Insurance Biller: Vignesh Clemons M.D.,PhD Colonoscopy Study observatio non 04-21-2024 [facility] Radiology Study observation (narrative) [facility] EGD Study observation Narrat iveon 04-21-2024 [facility] Radiology Study observation (narrative) [facility] LIPID PROFILEon 09-20-2022 CHOL-HDL RATIO NORM SEE BELOW Normal [facility] Comment on above: Result Comment: 3.3 - 4.4 LOW RISK 4.4 - 7.1 AVERAGE RISK 7.1 - 11.0 MODERATE RISK >11.0 HIGH RISK Performed By: #### L IPID #### [facility] [address] [address] [address] Vera Leggett Cholesterol [Mass/Vol] 152 mg/dL Normal <=200 [facility] Comment on above: Performed By: #### L IPID #### [facility] [address] [address] [address] Vera Leggett Cholesterol in HDL [Mass/Vol] 104 mg/dL Critically high 40-60 [facility] Comment on above: Performed By: #### L IPID #### [facility] [address] [address] [address] Vera Leggett Cholesterol in LDL [Mass/Vol] 34.4 mg/dL Normal [facility] Comment on above: Performed By: #### L IPID #### [facility] [address] [address] [address] Vera Leggett Cholesterol.total/Chol esterol in HDL [Mass ratio] 1.5 {ratio} Normal [facility] Comment on above: Performed By: #### L IPID #### [facility] [address] [address] [address] Vera Leggett HDL NORMAL > or = 60 mg/dl - LO W CARDIOVASCULAR RISK <40 mg/dl - HIGH CARDIOVASCULAR RISK Normal [facility] Comment on above: Performed By: #### L IPID #### [facility] [address] [address] [address] Vera Leggett LDL CALC NORMAL SEE BELOW Normal [facility] Comment on above: Result Comment: <100 mg/dl OPTIMAL 100 - 129 mg/dl NEAR OR ABOVE OPTIMAL 130 - 159 mg/dl BORDERLINE HIGH 160 - 189 mg/dl HIGH >190 mg/dl VERY HIGH Performed By: #### L IPID #### [facility] [address] [address] [address] Vera Leggett Triglyceride [Mass/Vol] 68 mg/dL Normal <=150 [facility] Comment on above: Performed By: #### L IPID #### [facility] [address] [place], [place] [address] Dr. Vera Leggett VLDL CALC 13.6 mg/dL Normal [facility] Comment on above: Performed By: #### L IPID #### [facility] [address] [place], [place] [address] HEAD WO CONon 03-19-2022 CT HEAD [...] by: TRUE COELLO Date: 2022-03-19 16:05 Normal [facility] US CAROTID ART BILon 03-19-2 022 [...] by: JERAMY REYNA Date: 2022-03-19 17:01 Normal [facility] Q - CULTURE,URINE,ROUTINEon 11-13-2021 CULTURE, URINE, ROUTINE SEE NOTE Normal [facility] Comment on above: Order Comment: [facility] performed at: [facility], [address] [place] [address], [address] [place] [address], [id number], Residential Support Specialist: Félix Elder MD [facility] Date/Time: [facility] Results Received Date/Time: [facility] Reported Date/Time: FASTING: UNKNOWN Result Comment: CULT URE, URINE, ROUTINE Micro Number: [id number] Test Status: Final Specimen Source: Urine Specimen Quality: Adequate Result: No Growth Performed By: #### 6 304R #### [facility] Default [address] [place] [address] LUMBAR SPINE 2 OR 3 VIEWSon 07-19-2021 LUMBAR SPINE 2 OR 3 VIEWS STUDY: LUMBAR SPINE 2 OR 3 VIEWS; 07/19/2021 12:04 pm INDICATION: PAIN. COMPARISON: None. ACCESSION NUMBER(S): [id number] ORDERING CLINICIAN: Katey Clark FINDINGS: Metallic interbody graft at L5-S1. Mild compression fractures at L1 and L2. Moderate compression fracture at L4. No spondylolisthesis. Multilevel facet arthropathy. IMPRESSION: Age-indeterminate compression fractures at L1, L2, and L4. Degenerative changes. L5-S1 fusion. Normal [facility] Coding Summary.on 08-21-2018 Coding Summary. CODING DATE: 018 FINAL [facility] STATUS: Home (Routine DC) PAYOR: Medicare APC [...] CphT Date Saved: 08/21/2018 10:12 am Normal [facility] XR Shoulder Complete Righton 08-20-2018 XR Shoulder Complete Right Exam Date/Time:08/20/2018 12:22 ESTReason for Exam:M19.211ReportIMPRE SSION: NO FRACTURE/DISLOCATION.WY LD ACROMIOCLAVICULAR ARTHROSIS.CLINICAL HISTORY: M19.211, right shoulder pain [...] Kirk MD Transcribed by: GOKUL Technologist: DAMARIS Normal [facility] Cardiovascular Lab Reporton 06-26-2018 Cardiovascular Lab Report [facility] Patient Name: [facility] Rodrigue MR #: [id number] of Physician: Dejuan Lauren MMirthaDivision of Service Date: 06/25/2018Cardiology Birthdate: [birth year]Adult Cardiovascular Room #: [place] [id number] [place], [place] [address]Wd[place] F[facility] Cardiovascular Laboratory ReportFINAL IMPRESSIONS:1. Angiographically nonobstructive coronary arteries.2. Normal global left ventricular systolic function by noninvasive imaging.3. Moderately elevated right-sided heart pressures and mildly elevated pulmonary capillary wedge pressure.4. Normal transpulmonary gradient, along with the elevated filling pressures would suggest post capillary or pulmonary venous hypertension.5. Moderate systemic hypertension.6. Normal cardiac output/cardiac index.RECOMMENDATIONS:1 . Aggressive cardiovascular risk factor modification.2. Optimization of medical management; will add Lasix 20 mg daily and obtain a basic metabolic panel in a week.3. Consider alternate etiologies for the patient's shortness of breath and chest pain as clinically appropriate, such as pulmonary.4. Follow up with me in the [facility] in the next 3 to 4 weeks.5. Follow up with Dr. Santiago, her family physician as scheduled.PROCEDURES: Right heart catheterization, bilateral selective coronaryangiography, limited femoral angiography, placement of a 6-[place] MynxGripclosure device.METHODS: After risks, benefits, and alternatives were explained, writteninformed consent was obtained. The patient was prepped and draped in theusual sterile fashion over the right groin. Using 1% lidocaine solution,local infiltration anesthesia was achieved. Using a modified Seldingertechnique, access to the right common femoral artery and vein was obtainedand 6-[place] 11 cm sheath was inserted in each. [...] images, it was elected to conclude theprocedure.A 6-[place] MynxGrip closure device was deployed per protocol achievingoptimal hemostasis. Overall, the patient tolerated the procedure well.There were no overt complications. She was to be transferred to theholding area in stable condition.FINDINGS:Hemo dynamics:1. AO 146/80.2. RA 12.3. RV 46/6, 13.4. [...] anterior descending coronary artery. This shows no significantstenoses.Lef t circumflex coronary artery. This is angiographically nonobstructive.Right [...] 06/25/2018/09:04 Yazan/Ayleen Hickey M.D.Date Trans: 06/26/2018 04:33 Yazan/Bharath_JN:[id number] 18cc: Howard Santiago M.D. 3 [facility] [address] Normal [facility] BASIC METABOLIC PANELon 05-24 Calcium mass conc 8.6 mg/dL Normal 8.6-10.3 [facility] Comment on above: Order Comment: No: D o not add to previous draw Performed By: #### 4 7652, 29410, 48630, 01169, 11903, 98455 ####[facility] [place] [address], [place] Chloride molar conc 101 mmol/L Normal 98-107 [facility] Comment on above: Order Comment: No: D o not add to previous draw Performed By: #### 4 6413, 66301, 22916, 58879, 05204, 06756 ####[facility] [place] [address], [place] CO2 molar conc 27 mmol/L Normal 21-31 [facility] Comment on above: Order Comment: No: D o not add to previous draw Performed By: #### 4 6413, 70791, 04340, 70761, 12669, 73886 ####[facility] [place] [address], [place] Creatinine mass conc 0.51 mg/dL Low 0.60-1.20 [facility] Comment on above: Order Comment: No: D o not add to previous draw Performed By: #### 4 6413, 47102, 95458, 11786, 02878, 56621 ####[facility] [place] [address], [place] GFR/1.73 sq M predicted among blacks MDRD vol rate/area (S/P/Bld) mL/min/{1.73_m2} Normal >60 [facility] Comment on above: Order Comment: No: D o not add to previous draw Performed By: #### 4 6413, 28138, 79050, 28727, 21992, 70427 ####[facility] [place] [address], [place] GFR/1.73 sq M predicted among non-blacks MDRD vol rate/area (S/P/Bld) mL/min/{1.73_m2} Normal >60 [facility] Comment on above: Order Comment: No: D o not add to previous draw Performed By: #### 4 6413, 78154, 52128, 37431, 01424, 83903 ####[facility] [place] [address], [facility] Glucose mass conc 211 mg/dL High 70-100 [facility] Comment on above: Order Comment: No: D o not add to previous draw Performed By: #### 4 6413, 91432, 66019, 00830, 67882, 03089 ####[facility] [place] [address], [facility] Potassium molar conc 4.0 mmol/L Normal 3.5-5.1 [facility] Comment on above: Order Comment: No: D o not add to previous draw Performed By: #### 4 6413, 14132, 29173, 68364, 50003, 15174 ####[facility] [place] [address], [facility] Sodium molar conc 135 mmol/L Low 136-145 [facility] Comment on above: Order Comment: No: D o not add to previous draw Performed By: #### 4 6413, 06544, 91474, 84200, 31536, 68292 ####[facility] [place] [address], [facility] Urea nitrogen mass conc 4 mg/dL Low 7-25 [facility] Comment on above: Order Comment: No: D o not add to previous draw Performed By: #### 4 6413, 56326, 30321, 01979, 17492, 42785 ####[facility] [place] [address], [facility] CBC COMPLETE BLOOD COUNTon 0 - Erythrocyte distribution width Auto Ratio (RBC) 14.7 % Normal 11.5-15.0 [facility] Comment on above: Order Comment: No: D o not add to previous draw Performed By: #### 4 6413, 92529, 67107, 51357, 90679, 63206 ####[facility] [place] [address], [facility] Hematocrit Auto Volume Fraction (Bld) 34.4 % Low 36.0-45.0 [facility] Comment on above: Order Comment: No: D o not add to previous draw Performed By: #### 4 6413, 16694, 07026, 73640, 54463, 06991 ####[facility] Hemoglobin mass conc (Bld) 11.0 g/dL Low 12.0-15.0 [facility] Comment on above: Order Comment: No: D o not add to previous draw Performed By: #### 4 6413, 50219, 96418, 16517, 62335, 71416 ####[facility] [facility].[address] MCH Auto Entitic mass (RBC) 26.3 pg Low 27.0-33.0 [facility] Comment on above: Order Comment: No: D o not add to previous draw Performed By: #### 4 6413, 47843, 17271, 79592, 03314, 53847 ####[facility] [facility] MCHC Auto mass conc (RBC) 32.0 g/dL Normal 32.0-35.0 [facility] Comment on above: Order Comment: No: D o not add to previous draw Performed By: #### 4 6413, 27219, 41385, 25520, 32254, 99916 ####[facility] MCV Auto Entitic volume (RBC) 82.3 fL Normal 82.0-98.0 [facility] Comment on above: Order Comment: No: D o not add to previous draw Performed By: #### 4 6413, 10013, 64506, 40823, 09652, 60757 ####[facility] Nucleated RBC/100 WBC Ratio (Bld) 0 % Normal 0-0 [facility] Comment on above: Order Comment: No: D o not add to previous draw Performed By: #### 4 6413, 61276, 29183, 61353, 34253, 62268 ####[facility] [place] [address], [facility] PLAT CNT 301 10*3/uL Normal 150-400 [facility] Comment on above: Order Comment: No: D o not add to previous draw Performed By: #### 4 6413, 43686, 24110, 80662, 58755, 40045 ####[facility] [place] [address], [facility] RBC Auto #/vol (Bld) 4.18 10*6/uL Normal 3.80-5.00 [facility] Comment on above: Order Comment: No: D o not add to previous draw Performed By: #### 4 6413, 98443, 08481, 14008, 47479, 84240 ####[facility] WBC Auto #/vol (Bld) 5.45 10*3/uL Normal 4.00-10.60 Th e [facility] Comment on above: Order Comment: No: D o not add to previous draw Performed By: #### 4 6413, 09505, 52504, 93872, 60488, 35519 ####[facility] [place] [address], [facility] MAGNESIUM BLOODon 06-17-2018 Magnesium mass conc 1.6 mg/dL Low 1.9-2.7 [facility] Comment on above: Order Comment: No: D o not add to previous draw Performed By: #### 4 6413, 53920, 71739, 92409, 39625, 02001 ####[facility] [place] [address], [facility] POC GLUCOSE LABon 06-17-2018 Glucose mass conc 254 mg/dL High 70-100 [facility] Comment on above: Performed By: #### 4 6413, 99496, 94950, 95082, 13100, 72066 ####[facility] [place] [address], [facility] Glucose mass conc 239 mg/dL High 70-100 [facility] Comment on above: Performed By: #### 4 6413, 84964, 14967, 38903, 33652, 10004 ####[facility] [facility].[address] TROPONIN-Ion 06-17-2018 Troponin I.cardiac mass conc 0.00 ng/mL Normal 0.00-0.04 [facility] Comment on above: Order Comment: No: D o not add to previous draw Result Comment: REFE RENCE RANGES: 0.00 - 0.14 ng/ml NEGATIVE 0.15 - 0.25 ng/ml INDETERMINATE > 0.25 ng/ml INDICATIVE OF AN M.I. Performed By: #### 4 6413, 30081, 90874, 33951, 11709, 98662 ####[facility] [facility].[address] BNP (B-TYPE NATRIURETIC PEPT PRAVEENA)on 06-16-2018 Natriuretic peptide B mass conc (Bld) 54 pg/mL Normal 0-100 [facility] Comment on above: Order Comment: No: D o not add to previous draw Result Comment: Give n the appropriate clinical setting a BNP result of >100 pg/mLindicates congestive heart failure. Performed By: #### 8 5123 ####[facility] [facility] [address], [facility] CBC W/DIFFon 06-16-2018 ABS BASOPHILS 0.0 10*3/uL Normal 0.0-0.2 [facility] Comment on above: Order Comment: No: D o not add to previous draw Performed By: #### 5 0103 ####[facility] [place] [address], [facility] ABS IMM GRANS 0.0 10*3/uL Normal 0.0-0.2 [facility] Comment on above: Order Comment: No: D o not add to previous draw Performed By: #### 5 0103 ####[facility] [place] [address], [facility] ABS NEUTROPHILS 4.1 10*3/uL Normal 1.6-7.6 [facility] Comment on above: Order Comment: No: D o not add to previous draw Performed By: #### 5 0103 ####[facility] [place] [address], [facility] Basophils Auto #/vol (Bld) 0.1 % Normal 0.0-1.0 [facility] Comment on above: Order Comment: No: D o not add to previous draw Performed By: #### 5 0103 ####[facility] [place] [address], [facility] Eosinophils Auto #/vol (Bld) 0.0 10*3/uL Normal 0.0-0.5 [facility] Comment on above: Order Comment: No: D o not add to previous draw Performed By: #### 5 0103 ####[facility] Eosinophils/100 WBC Auto (Bld) 0.4 % Normal 0.0-6.0 [facility] Comment on above: Order Comment: No: D o not add to previous draw Performed By: #### 5 0103 ####[facility] Erythrocyte distribution width Auto Ratio (RBC) 14.5 % Normal 11.5-15.0 [facility] Comment on above: Order Comment: No: D o not add to previous draw Performed By: #### 5 3 ####[facility] Hematocrit Auto Volume Fraction (Bld) 33.2 % Low 36.0-45.0 [facility] Comment on above: Order Comment: No: D o not add to previous draw Performed By: #### 5 0103 ####[facility] Hemoglobin mass conc (Bld) 10.7 g/dL Low 12.0-15.0 [facility] Comment on above: Order Comment: No: D o not add to previous draw Performed By: #### 5 0103 ####[facility] IMMATURE GRANS 0.3 % Normal 0.0-1.0 [facility] Comment on above: Order Comment: No: D o not add to previous draw Performed By: #### 5 0103 ####[facility] Lymphocytes Auto #/vol (Bld) 2.7 10*3/uL Normal 1.2-4.0 [facility] Comment on above: Order Comment: No: D o not add to previous draw Performed By: #### 5 0103 ####[facility] Lymphocytes/100 WBC Auto (Bld) 36.8 % Normal 20.0-45.0 [facility] Comment on above: Order Comment: No: D o not add to previous draw Performed By: #### 5 0103 ####[facility] MCH Auto Entitic mass (RBC) 26.4 pg Low 27.0-33.0 [facility] Comment on above: Order Comment: No: D o not add to previous draw Performed By: #### 5 0103 ####[facility] MCHC Auto mass conc (RBC) 32.2 g/dL Normal 32.0-35.0 [facility] Comment on above: Order Comment: No: D o not add to previous draw Performed By: #### 5 0103 ####[facility] [facility].[address] MCV Auto Entitic volume (RBC) 82.0 fL Normal 82.0-98.0 [facility] Comment on above: Order Comment: No: D o not add to previous draw Performed By: #### 5 0103 ####[facility] [facility].[address] Monocytes Auto #/vol (Bld) 0.5 10*3/uL Normal 0.1-1.0 [facility] Comment on above: Order Comment: No: D o not add to previous draw Performed By: #### 5 0103 ####[facility] [facility].[address] MONOS 6.4 % Normal 5.0-12.0 [facility] Comment on above: Order Comment: No: D o not add to previous draw Performed By: #### 5 0103 ####[facility] [facility].[address] Neutrophils/100 WBC Auto (Bld) 56.0 % Normal 40.0-72.0 [facility] Comment on above: Order Comment: No: D o not add to previous draw Performed By: #### 5 0103 ####[facility] [facility].[address] Nucleated RBC/100 WBC Ratio (Bld) 0 % Normal 0-0 [facility] Comment on above: Order Comment: No: D o not add to previous draw Performed By: #### 5 0103 ####[facility] [place] [address], [facility] PLAT CNT 293 10*3/uL Normal 150-400 [facility] Comment on above: Order Comment: No: D o not add to previous draw Performed By: #### 5 0103 ####[facility] [place] [address], [facility] RBC Auto #/vol (Bld) 4.05 10*6/uL Normal 3.80-5.00 Th e [facility] Comment on above: Order Comment: No: D o not add to previous draw Performed By: #### 5 0103 ####[facility] [place] [address], [facility] WBC Auto #/vol (Bld) 7.30 10*3/uL Normal 4.00-10.60 Th e [facility] Comment on above: Order Comment: No: D o not add to previous draw Performed By: #### 5 0103 ####[facility] [place] [address], [facility] COMP METABOLIC PANELon 06-16 Albumin mass conc 3.7 g/dL Normal 3.5-5.7 [facility] Comment on above: Order Comment: No: D o not add to previous draw Performed By: #### 4 6413, 28185, 80106, 02056, 46143, 82628 ####[facility] [place] [address], [facility] ALKALINE PHOSPH 39 IU/L Normal 34-104 [facility] Comment on above: Order Comment: No: D o not add to previous draw Performed By: #### 4 6413, 09818, 69055, 75032, 73251, 34151 ####[facility] [place] [address], [facility] ALT enzyme act/vol 6 U/L Low 7-52 [facility] Comment on above: Order Comment: No: D o not add to previous draw Performed By: #### 4 6413, 94243, 42380, 84349, 07115, 52514 ####[facility] [place] [address], [facility] AST enzyme act/vol 12 U/L Low 13-39 [facility] Comment on above: Order Comment: No: D o not add to previous draw Performed By: #### 4 6413, 62473, 73358, 64869, 31136, 61624 ####[facility] [place] [address], [facility] Bilirubin mass conc 0.4 mg/dL Normal 0.3-1.0 [facility] Comment on above: Order Comment: No: D o not add to previous draw Performed By: #### 4 6413, 41630, 49916, 18963, 16965, 38968 ####[facility] [id number], [facility] [facility] Calcium mass conc 9.1 mg/dL Normal 8.6-10.3 [facility] Comment on above: Order Comment: No: D o not add to previous draw Performed By: #### 4 6413, 06590, 57934, 17393, 76810, 53210 ####[facility] [place] [address], [facility] Chloride molar conc 96 mmol/L Low 98-107 [facility] Comment on above: Order Comment: No: D o not add to previous draw Performed By: #### 4 6413, 02012, 18808, 07889, 80609, 52751 ####[facility] [place] [address], [facility] CO2 molar conc 23 mmol/L Normal 21-31 [facility] Comment on above: Order Comment: No: D o not add to previous draw Performed By: #### 4 6413, 44849, 28466, 77114, 70895, 75564 ####[facility] [place] [address], [place] Creatinine mass conc 0.50 mg/dL Low 0.60-1.20 [facility] Comment on above: Order Comment: No: D o not add to previous draw Performed By: #### 4 6413, 89943, 72778, 34683, 62359, 11990 ####[facility] [place] [address], [facility] GFR/1.73 sq M predicted among blacks MDRD vol rate/area (S/P/Bld) mL/min/{1.73_m2} Normal >60 [facility] Comment on above: Order Comment: No: D o not add to previous draw Performed By: #### 4 6413, 38288, 28865, 21976, 20062, 60540 ####[facility] [place] [address], [facility] GFR/1.73 sq M predicted among non-blacks MDRD vol rate/area (S/P/Bld) mL/min/{1.73_m2} Normal >60 [facility] Comment on above: Order Comment: No: D o not add to previous draw Performed By: #### 4 6413, 93315, 87195, 08885, 15242, 64930 ####[facility] [place] [address], [facility] Glucose mass conc 269 mg/dL High 70-100 [facility] Comment on above: Order Comment: No: D o not add to previous draw Performed By: #### 4 6413, 82892, 78818, 06439, 65346, 26657 ####[facility] [place] [address], [place] Potassium molar conc 3.8 mmol/L Normal 3.5-5.1 [facility] Comment on above: Order Comment: No: D o not add to previous draw Performed By: #### 4 6413, 67139, 58103, 44857, 27673, 74706 ####[facility] [place] [address], [place] Protein mass conc 6.4 g/dL Normal 6.0-8.3 [facility] Comment on above: Order Comment: No: D o not add to previous draw Performed By: #### 4 6413, 39902, 09099, 19645, 13883, 25608 ####[facility] [facility].[address] Sodium molar conc 130 mmol/L Low 136-145 [facility] Comment on above: Order Comment: No: D o not add to previous draw Performed By: #### 4 6413, 97666, 24488, 86305, 07337, 53376 ####[facility] [facility].[address] Urea nitrogen mass conc 5 mg/dL Low 7-25 [facility] Comment on above: Order Comment: No: D o not add to previous draw Performed By: #### 4 6413, 69277, 50768, 37572, 83216, 83158 ####[facility] [facility].[address] History and Physicalon 06-16 History and Physical [id number]ue [facility] Admitted: 06/15/2018 Date of : 1950 Attending Physician: Nilda Walls M.D. Room #: 3CD [id number] Discharge Date: HISTORY AND PHYSICALThe patient was seen by me on June 15, 2018.CHIEF COMPLAINT: Hypertensive urgency.HISTORY OF PRESENT ILLNESS: The patient is a 68-year-old female with apast medical history of hypertension and diabetes who presented to [facility] asa transfer from [facility]. From the history, we know that the patient wasseen yesterday by her front office help there and had high blood pressure in [...] back negative. She was transferred to the [facility].The patient's front office help planned to do cardiac cath on her in 3 days hereat [facility] anyway. When I was examining [...] on insulin pump, chronic low back pain, osteoporosis,hyperlipid emia, neuropathy and depression.SOCIAL HISTORY: The patient is [...] bases. Good airentry. No wheezing, rhonchi, or crackles.CARDIOVASCULAR : Regular rate and rhythm. S1 and S2. No gallops. Thepatient has a soft 3/6 systolic murmur.ABDOMEN: Soft, nondistended, nontender. No rigidity. No rebound.EXTREMITIES: No pedal edema. No calf tenderness.SKIN: Warm, dry to touch. No rash.NEUROLOGIC: No sensory or motor deficits. Alert, oriented x3.PSYCHIATRIC: Normal affect and mood.LABORATORY DATA: Labs that were done at the [facility] shows white bloodcell 7.6, hemoglobin 11.5, hematocrit [...] lipid panel.6. We will resume patient's home medications.Electronica lly Signed by:Nilda Walls M.D. 06/17/2018 03:17 P Nilda Walls M.D.Date Dict: 06/16/2018/12:19 Yazan/Nilda Walls M.D.Date Trans: 06/16/2018 05:38 A/Bharath_JN:[id number] Normal [facility] LIPID PROFILEon 06-16-2018 Cholesterol in HDL mass conc 78 mg/dL Normal 23-92 [facility] Comment on above: Order Comment: No: D o not add to previous draw Result Comment: Slig ht variation in normal range could be due to gender and/or age.HDL CHOLESTEROL REFERENCE RANGE:20 years and older Cardiovascular Risk> or =60 mg/dL [id number] TO 59 mg/dL Low Risk<40 mg/dL High Risk Performed By: #### 4 6413, 93580, 37557, 82370, 27445, 00616 ####[facility] [place] [address], [facility] Cholesterol in LDL mass conc 71 mg/dL Normal 0-130 [facility] Comment on above: Order Comment: No: D o not add to previous draw Result Comment: LDL IS A CALCULATIONLDL IS ONLY VALID IF THE TRIG IS LESS THAN 400. Performed By: #### 4 6413, 39779, 32752, 90430, 54755, 22982 ####[facility] [place] [address], [facility] Cholesterol mass conc 167 mg/dL Normal 120-200 [facility] Comment on above: Order Comment: No: D o not add to previous draw Result Comment: CHOL ESTEROL REFERENCE RANGE:20 YEARS AND OLDER CARDIOVASCULAR RISKLess than 200 mg/dl Low [id number] to 239 mg/dl Borderline Yiku967 mg/dl and greater High Risk Performed By: #### 4 6413, 73566, 09131, 73262, 62106, 47533 ####[facility] [place] [address], [facility] Cholesterol.total/Chol esterol in HDL mass ratio 2.1 {ratio} Normal .0-4.5 [facility] Comment on above: Order Comment: No: D o not add to previous draw Performed By: #### 4 6413, 45932, 75687, 79357, 98965, 91508 ####[facility] [place] [address], [facility] NON-HDL CHOLESTEROL 89 mg/dL Normal [facility] Comment on above: Order Comment: No: D o not add to previous draw Performed By: #### 4 6413, 99262, 63398, 98846, 62428, 79627 ####[facility] Triglyceride mass conc 89 mg/dL Normal 40-149 [facility] Comment on above: Order Comment: No: D o not add to previous draw Result Comment: TRIG LYCERIDE REFERENCE RANGE:20 YEARS AND OLDER CARDIOVASCULAR RISKLESS THAN 150 mg/dl LOW [id number] TO 199 mg/dl BORDERLINE [id number] mg/dl AND GREATER HIGH RISK Performed By: #### 4 6413, 86700, 73424, 98920, 08388, 33577 ####[facility].[address] VLDL CHOL 18 mg/dL Normal 0-40 [facility] Comment on above: Order Comment: No: D o not add to previous draw Performed By: #### 4 6413, 93903, 39054, 38076, 55334, 00690 ####[facility] MAGNESIUM BLOODon 06-16-2018 Magnesium mass conc 1.6 mg/dL Low 1.9-2.7 [facility] Comment on above: Order Comment: No: D o not add to previous draw Performed By: #### 4 6413, 38984, 33109, 31241, 83573, 75175 ####[facility] PHOSPHORUS BLOODon 8 Phosphate mass conc 3.0 mg/dL Normal 2.5-5.0 [facility] Comment on above: Order Comment: No: D o not add to previous draw Performed By: #### 4 6413, 51923, 07999, 22699, 69620, 45330 ####[facility] [place] [address], [facility] POC GLUCOSE LABon 06-16-2018 Glucose mass conc 118 mg/dL High 70-100 [facility] Comment on above: Performed By: #### 4 6413, 54583, 58335, 67298, 80096, 57586 ####[facility] [place] [address], [place] Glucose mass conc 225 mg/dL High 70-100 [facility] Comment on above: Performed By: #### 4 6413, 74482, 13752, 18709, 98462, 81300 ####[facility] [place] [address], [place] Glucose mass conc 191 mg/dL High 70-100 [facility] Comment on above: Performed By: #### 4 6413, 72245, 94877, 17351, 99543, 06198 ####[facility] [place] [address], [place] Glucose mass conc 224 mg/dL High 70-100 [facility] Comment on above: Performed By: #### 4 6413, 06839, 30947, 68559, 27203, 82708 ####[facility] [place] [address], [facility] TROPONIN-Ion 06-16-2018 Troponin I.cardiac mass conc 0.00 ng/mL Normal 0.00-0.04 [facility] Comment on above: Order Comment: No: D o not add to previous draw Result Comment: REFE RENCE RANGES: 0.00 - 0.14 ng/ml NEGATIVE 0.15 - 0.25 ng/ml INDETERMINATE > 0.25 ng/ml INDICATIVE OF AN M.I. Performed By: #### 4 6413, 12095, 75342, 11440, 92687, 28120 ####[facility] [place] [address], [place] Troponin I.cardiac mass conc 0.00 ng/mL Normal 0.00-0.04 [facility] Comment on above: Order Comment: No: D o not add to previous draw Result Comment: REFE RENCE RANGES: 0.00 - 0.14 ng/ml NEGATIVE 0.15 - 0.25 ng/ml INDETERMINATE > 0.25 ng/ml INDICATIVE OF AN M.I. Performed By: #### 3 5200 ####[facility] Troponin I.cardiac mass conc 0.00 ng/mL Normal 0.00-0.04 [facility] Comment on above: Order Comment: No: D o not add to previous draw Result Comment: REFE RENCE RANGES: 0.00 - 0.14 ng/ml NEGATIVE 0.15 - 0.25 ng/ml INDETERMINATE > 0.25 ng/ml INDICATIVE OF AN M.I. Performed By: #### 4 6413, 99983, 39649, 27999, 73954, 77982 ####[facility] TSH3on 06-16-2018 TSH 3RD GENERATION 0.79 uIU/mL Normal 0.34-5.60 [facility] Comment on above: Order Comment: No: D o not add to previous draw Performed By: #### 4 6413, 73075, 66781, 73445, 43725, 20686 ####[facility] [facility].[address] URINALYSIS REFLEXon 06-16-20 18 APPEARANCE CLEAR Normal CLEAR [facility] Comment on above: Order Comment: No: D o not add to previous drawCriteria for reflexing a culture was not met. Please call the lab [email or web address] within 24 hours of collection time if culture is needed Performed By: #### 3 0965 ####[facility] [facility].[address] BILIRUBIN Negative Normal NEGATIVE [facility] Comment on above: Order Comment: No: D o not add to previous drawCriteria for reflexing a culture was not met. Please call the lab [email or web address] within 24 hours of collection time if culture is needed Performed By: #### 3 0965 ####[facility] [place] [address], [facility] BLOOD Negative Normal NEGATIVE [facility] Comment on above: Order Comment: No: D o not add to previous drawCriteria for reflexing a culture was not met. Please call the lab [email or web address] within 24 hours of collection time if culture is needed Performed By: #### 3 0965 ####[facility] [place] [address], [facility] COLOR STRAW Abnormal YELLOW [facility] Comment on above: Order Comment: No: D o not add to previous drawCriteria for reflexing a culture was not met. Please call the lab [email or web address] within 24 hours of collection time if culture is needed Performed By: #### 3 0965 ####[facility] [facility] [address], [facility] GLUCOSE 150 mg/dL Abnormal NEGATIVE [facility] Comment on above: Order Comment: No: D o not add to previous drawCriteria for reflexing a culture was not met. Please call the lab [id number] within 24 hours of collection time if culture is needed Performed By: #### 3 0965 ####[facility] [facility] [place] [address], [facility] KETONE TRACE Abnormal NEGATIVE [facility] Comment on above: Order Comment: No: D o not add to previous drawCriteria for reflexing a culture was not met. Please call the lab [id number] within 24 hours of collection time if culture is needed Performed By: #### 3 0965 ####[facility] [place] [address], [facility] LEUK LINDA Negative Normal NEGATIVE [facility] Comment on above: Order Comment: No: D o not add to previous drawCriteria for reflexing a culture was not met. Please call the lab [id number] within 24 hours of collection time if culture is needed Performed By: #### 3 0965 ####[facility] [place] [address], [facility] MICRO NOT DONE negative chemical reactions unless requested in original order Normal [facility] Comment on above: Order Comment: No: D o not add to previous drawCriteria for reflexing a culture was not met. Please call the lab [id number] within 24 hours of collection time if culture is needed Performed By: #### 3 0965 ####[facility] [place] [address], [facility] NITRITE Negative Normal NEGATIVE [facility] Comment on above: Order Comment: No: D o not add to previous drawCriteria for reflexing a culture was not met. Please call the lab [id number] within 24 hours of collection time if culture is needed Performed By: #### 3 0965 ####[facility] [place] [address], [facility] PH 7.0 Normal 5.0-8.0 [facility] Comment on above: Order Comment: No: D o not add to previous drawCriteria for reflexing a culture was not met. Please call the lab [email or web address] within 24 hours of collection time if culture is needed Performed By: #### 3 0965 ####[facility] [place] [address], [facility] Protein mass conc Negative Normal NEGATIVE [facility] Comment on above: Order Comment: No: D o not add to previous drawCriteria for reflexing a culture was not met. Please call the lab [id number] within 24 hours of collection time if culture is needed Performed By: #### 3 0965 ####[facility] [place] [address], [facility] SPEC GRAV 1.004 Low 1.015-1.020 [facility] Comment on above: Order Comment: No: D o not add to previous drawCriteria for reflexing a culture was not met. Please call the lab [id number] within 24 hours of collection time if culture is needed Performed By: #### 3 0965 ####[facility] [facility] [address], [facility] Vital Signs Date Time Vital Sign Value Performing Clinician Luli meyer 07-12-2024 13:53-0400 Body height 160 cm Melecio Vazquez MD Work Phone: [facility] 07-12-2024 13:53-0400 Body mass index (BMI) [Ratio] 25.31 kg/m2 Melecio Vazquez MD Work Phone: [facility] 07-12-2024 13:53-0400 Body temperature 97.2 [degF] Melecio Vazquez MD Work Phone: [facility] 07-12-2024 13:53-0400 Body weight 64.8 kg Melecio Vazquez MD Work Phone: [facility] 07-12-2024 13:53-0400 Diastolic blood pressure 87 mm[Hg] Melecio Vazquez MD Work Phone: [facility] 07-12-2024 13:53-0400 Heart rate 79 /min Melecio Vazquez MD Work Phone: [facility] 07-12-2024 13:53-0400 Respiratory rate 16 /min Melecio Vazquez MD Work Phone: [facility] 07-12-2024 13:53-0400 SaO2% (BldA) [Mass fraction] 97 % Melecio Vazquez MD Work Phone: [facility] 07-12-2024 13:53-0400 Systolic blood pressure 156 mm[Hg] Melecio Vazquez MD Work Phone: [facility] 07-06-2024 13:31-0400 Body height 160 cm Melecio Vazquez MD Work Phone: [facility] 07-06-2024 13:31-0400 Body mass index (BMI) [Ratio] 25.43 kg/m2 Melecio Vazquez MD Work Phone: [facility] 07-06-2024 13:31-0400 Body temperature 97.11 [degF] Melecio Vazquez MD Work Phone: [facility] 07-06-2024 13:31-0400 Body weight 65.1 kg Melecio Vazquez MD Work Phone: [facility] 07-06-2024 13:31-0400 Diastolic blood pressure 80 mm[Hg] Melecio Vazquez MD Work Phone: [facility] 07-06-2024 13:31-0400 Heart rate 74 /min Melecio Vazquez MD Work Phone: [facility] 07-06-2024 13:31-0400 Respiratory rate 16 /min Melecio Vazquez MD Work Phone: [facility] 07-06-2024 13:31-0400 SaO2% (BldA) [Mass fraction] 95 % Melecio Vazquez MD Work Phone: [facility] 07-06-2024 13:31-0400 Systolic blood pressure 155 mm[Hg] Melecio Vazquez MD Work Phone: [facility] 06-17-2024 15:13-0400 Body temperature 97.11 [degF] Rafaela Baum APRN.[employer] Work Phone: [facility] 06-17-2024 15:13-0400 Diastolic blood pressure 61 mm[Hg] Rafaela Baum APRN.[employer] Work Phone: [facility] 06-17-2024 15:13-0400 Heart rate 84 /min Rafaela Baum APRN.[employer] Work Phone: [facility] 06-17-2024 15:13-0400 SaO2% (BldA) [Mass fraction] 96 % Rafaela Baum [employer] Work Phone: [facility] 06-17-2024 15:13-0400 Systolic blood pressure 127 mm[Hg] Rafaela Baum [employer]LECT[employer] Work Phone: [facility] 06-15-2024 10:49-0400 Body height 160 cm Melecio Vazquez MD Work Phone: [facility] 06-15-2024 10:49-0400 Body mass index (BMI) [Ratio] 25.55 kg/m2 Melecio Vazquez MD Work Phone: [facility] 06-15-2024 10:49-0400 Body temperature 97.11 [degF] Melecio Vazquez MD Work Phone: [facility] 06-15-2024 10:49-0400 Body weight 65.4 kg Melecio Vazquez MD Work Phone: [facility] 06-15-2024 10:49-0400 Diastolic blood pressure 85 mm[Hg] Melecio Vazquez MD Work Phone: [facility] 06-15-2024 10:49-0400 Heart rate 88 /min Melecio Vazquez MD Work Phone: [facility] 06-15-2024 10:49-0400 Respiratory rate 16 /min Melecio Vazquez MD Work Phone: [facility] 06-15-2024 10:49-0400 SaO2% (BldA) [Mass fraction] 95 % Melecio Vazquez MD Work Phone: [facility] 06-15-2024 10:49-0400 Systolic blood pressure 147 mm[Hg] Melecio Vazquez MD Work Phone: [facility] 06-02-2024 10:35-0400 Body temperature 97 [degF] Jeramy Garrido MD Work Phone: [facility] 06-02-2024 10:35-0400 Diastolic blood pressure 59 mm[Hg] Jeramy Garriod MD Work Phone: [facility] 06-02-2024 10:35-0400 Heart rate 65 /min Jeramy Garrido MD Work Phone: [facility] 06-02-2024 10:35-0400 SaO2% (BldA) [Mass fraction] 98 % Jeramy Garrido MD Work Phone: [facility] 06-02-2024 10:35-0400 Systolic blood pressure 138 mm[Hg] Jeramy Garrido MD Work Phone: [facility] 05-20-2024 14:03-0400 Diastolic blood pressure 71 mm[Hg] Jeramy Garrido MD Work Phone: [facility] 05-20-2024 14:03-0400 Heart rate 68 /min Jeramy Garrido MD Work Phone: [facility] 05-20-2024 14:03-0400 Respiratory rate 15 /min Jeramy Garrido MD Work Phone: [facility] 05-20-2024 14:03-0400 SaO2% (BldA) [Mass fraction] 95 % Jeramy Garrido MD Work Phone: [facility] 05-20-2024 14:03-0400 Systolic blood pressure 125 mm[Hg] Jeramy Garrido MD Work Phone: [facility] 05-20-2024 13:43-0400 Body temperature 97 [degF] Jeramy Garrido MD Work Phone: [facility] 04-27-2024 14:11-0400 Body height 160 cm Pamela Hamilton MD Work Phone: [facility] 04-27-2024 14:11-0400 Body mass index (BMI) [Ratio] 24.8 kg/m2 Pamela Hamilton MD Work Phone: [facility] 04-27-2024 14:11-0400 Body weight 63.5 kg Pamela Hamilton MD Work Phone: [facility] 04-27-2024 14:11-0400 Diastolic blood pressure 70 mm[Hg] Pamela Hamilton MD Work Phone: [facility] 04-27-2024 14:11-0400 Heart rate 74 /min Pamela Hamilton MD Work Phone: [facility] 04-27-2024 14:11-0400 Systolic blood pressure 134 mm[Hg] Pamela Hamilton MD Work Phone: [facility] 04-21-2024 07:55-0400 Diastolic blood pressure 55 mm[Hg] Sandy Flores MD Work Phone: [facility] 04-21-2024 07:55-0400 Heart rate 66 /min Sandy Flores MD Work Phone: [facility] 04-21-2024 07:55-0400 Respiratory rate 16 /min Sandy Flores MD Work Phone: [facility] 04-21-2024 07:55-0400 SaO2% (BldA) [Mass fraction] 99 % Sandy Flores MD Work Phone: [facility] 04-21-2024 07:55-0400 Systolic blood pressure 99 mm[Hg] Sandy Flores MD Work Phone: [facility] 04-21-2024 06:41-0400 Body height 160 cm Sandy Flores MD Work Phone: [facility] 04-21-2024 06:41-0400 Body mass index (BMI) [Ratio] 24.8 kg/m2 Sandy Flores MD Work Phone: [facility] 04-21-2024 06:41-0400 Body temperature 0.3 [degF] Sandy Flores MD Work Phone: [facility] 04-21-2024 06:41-0400 Body weight 63.5 kg Sandy Flores MD Work Phone: [facility] 01-19-2024 10:37-0400 Body height 160 cm Amparo Martinez APRN.CNP Work Phone: [facility] 01-19-2024 10:37-0400 Body mass index (BMI) [Ratio] 25.86 kg/m2 Amparo Martinez [employer] Work Phone: [facility] 01-19-2024 10:37-0400 Body weight 66.22 kg Amparo Martinez [employer] Work Phone: [facility] 01-19-2024 10:37-0400 Diastolic blood pressure 74 mm[Hg] Amparo Galeory [employer]IAN [employer] Work Phone: [facility] 01-19-2024 10:37-0400 Heart rate 75 /min Amparo Martinez [employer] Work Phone: [facility] 01-19-2024 10:37-0400 Systolic blood pressure 129 mm[Hg] Amparo Martinez [employer] Work Phone: [facility] 04-26-2022 09:46-0400 Body height 160 cm Araceli Bullock [employer]IAN [employer] Work Phone: [facility] 04-26-2022 09:46-0400 Body weight 72.12 kg Araceli Bullock [employer] Work Phone: [facility] 04-26-2022 09:46-0400 Diastolic blood pressure 84 mm[Hg] Araceli Stantonall [employer]IAN [employer] Work Phone: [facility] 04-26-2022 09:46-0400 Heart rate 74 /min Araceli Bullock [employer]IAN [employer] Work Phone: [facility] 04-26-2022 09:46-0400 Systolic blood pressure 126 mm[Hg] Araceli Stantonall [employer]IAN [employer] Work Phone: [facility] Encounters Encounter Date Encounter Type Care Provider Facility Start: 07-12-2024 End: 07-12-2024 Office outpatient visit 15 minutes Melecio Vazquez MD Work Phone: Hematology/Oncology Comment on above: Malignant neoplasm o f sigmoid colon (HCC) (Primary Dx) Start: 07-12-2024 End: 07-12-2024 Telephone encounter Janneth Fan RN Work Phone: Hematology/Oncology Comment on above: Care Coordination (N ot feeling well) Start: 07-06-2024 End: 07-06-2024 Clinisync Result Encounter Generic External Data Provider [facility] External Department Unsolicited Start: 07-06-2024 End: 07-06-2024 Clinisync Result Encounter Generic External Data Provider [facility] External Department Unsolicited Start: 07-06-2024 End: 07-06-2024 Nursing evaluation of patient and report Janneth Fan RN Work Phone: Hematology/Oncology Comment on above: Malignant neoplasm o f sigmoid colon (HCC) (Primary Dx) Start: 07-06-2024 End: 07-07-2024 [facility] Start: 07-06-2024 End: 07-06-2024 Office outpatient visit 25 minutes Melecio Vazquez MD Work Phone: Hematology/Oncology Comment on above: Malignant neoplasm o f sigmoid colon (HCC) (Primary Dx) Start: 07-01-2024 End: 07-01-2024 Telephone encounter Janneth Fan RN Work Phone: Hematology/Oncology Comment on above: Care Coordination (M edication update) Start: 06-21-2024 End: 06-21-2024 ambulatory HOWARD SANTIAGO Not Available Start: 06-17-2024 End: 06-17-2024 [facility] Facility:[facility] Start: 06-17-2024 End: 06-17-2024 Patient encounter procedure Rafaela Baum APRN.FLAG MAKER Work Phone: Colorectal Surgery Comment on above: Follow-up examinatio n after colorectal surgery (Primary Dx) Start: 06-15-2024 End: 06-15-2024 Office outpatient new 60 minutes Melecio Vazquez MD Work Phone: Hematology/Oncology Comment on above: Malignant neoplasm o f sigmoid colon (HCC) (Primary Dx); Rectal cancer (HCC) Start: 06-15-2024 End: 06-17-2024 Orders Only Jeramy Garrido MD Work Phone: Colorectal Surgery Comment on above: Medication Update (C apecitabine) Start: 06-09-2024 End: 06-09-2024 Orders Only Jeramy Garrido MD Work Phone: Colorectal Surgery Comment on above: Rectal cancer (HCC) (Primary Dx) Research (TCI Resear ch Pre-Screening ([id number])) Start: 06-03-2024 End: 06-06-2024 Evaluation and management of inpatient JERAMY GARRIDO Facility:[facility] Start: 06-02-2024 End: 06-02-2024 ambulatory HOWARD SANTIAGO II Facility:[facility] Start: 06-02-2024 End: 06-02-2024 ambulatory PAMELA HAMILTON Facility:[facility] Start: 06-02-2024 End: 06-09-2024 Patient encounter procedure Jeramy Garrido MD Work Phone: Colorectal Surgery Comment on above: Rectal cancer (HCC) (Primary Dx) Start: 05-28-2024 End: 05-28-2024 ambulatory HOWARD SANTIAGO Not Available Start: 05-20-2024 ambulatory SYDNEY RAVEN cility:[facility] Start: 05-20-2024 End: 05-20-2024 Subsequent hospital visit by physician Jeramy Garrido MD Work Phone: Procedures Comment on above: Rectal cancer (HCC) [C20] Start: 05-17-2024 ambulatory PAMELA BAN Facility:[facility] Start: 05-17-2024 End: 05-17-2024 Subsequent hospital visit by physician [employer] [facility] Radiology Comment on above: Rectal cancer (HCC) [C20] Start: 05-10-2024 End: 05-10-2024 Telephone encounter Pamela Hamilton MD Work Phone: Colorectal Surgery Start: 04-28-2024 ambulatory Pamela Ban Facility:[facility] Start: 04-28-2024 End: 04-28-2024 Subsequent hospital visit by physician [facility] Work Phone: [facility] Radiology CT Scan Comment on above: Rectal cancer (HCC) [C20] Start: 04-27-2024 End: 04-27-2024 ambulatory HOWARD B SANTIAGO II Facility:[facility] Start: 04-27-2024 End: 04-27-2024 Patient encounter procedure Pamela Hamilton MD Work Phone: Colorectal Surgery Comment on above: Rectal cancer (HCC) (Primary Dx) Start: 04-22-2024 End: 04-22-2024 ambulatory HOWARD B SANTIAGO II Facility:[facility] Start: 04-21-2024 End: 04-21-2024 Orders Only Sandy Cristobal MD Work Phone: [place] [facility] [place] Comment on above: Congenital anomaly o f esophagus (Primary Dx) Iron deficiency anem ia, unspecified iron deficiency anemia type [D50.9] Start: 04-14-2024 End: 04-14-2024 ambulatory HOWARD B SANTIAGO Not Available Start: 04-09-2024 End: 04-12-2024 ambulatory STEPHANIE ZHENG Not Available Start: 03-11-2024 End: 03-11-2024 ambulatory ALAN M HEMMER Not Available Start: 03-05-2024 End: 03-05-2024 ambulatory ALAN M HEMMER Not Available Start: 03-01-2024 End: 03-01-2024 ambulatory HOWARD B SANTIAGO Not Available Start: 02-26-2024 Telephone encounter Amparo morrow APRN.CNP Work Phone[facility] Comment on above: Patient Update Start: 02-18-2024 End: 02-18-2024 ambulatory HOWARDZOILA SANTIAGO Not Available Start: 01-19-2024 End: 01-19-2024 Patient encounter procedure Amparo Martinez APRN.FLAG MAKER Work Phone: [place] [facility] [place] Comment on above: Screening for malign ant neoplasm of colon (Primary Dx); Iron deficiency anemia, unspecified iron deficiency anemia type; Hiatal hernia; Family history of colon cancer Start: 01-12-2024 End: 01-12-2024 ambulatory HOWARD B SANTIAGO Not Available Start: 01-05-2024 End: 01-05-2024 ambulatory STEPHANIE BAZANICK Not Available Start: 12-04-2023 End: 12-04-2023 ambulatory STEPHANIE Nixon MARCE Not Available Start: 11-05-2023 Refill Jayashree Friday L PN Work Phone: [facility] Comment on above: Secondary osteoarthr itis, right shoulder Start: 10-13-2023 End: 10-13-2023 ambulatory STEPHANIE Nixon MARCE Not Available Start: 10-09-2023 End: 10-09-2023 ambulatory HOWARD Sandeep SANTIAGO Not Available Start: 12-11-2022 Telephone encounter Jose Hunter MD Work Phone: Endocrinology Comment on above: Forms ([employer]) Start: 12-05-2022 Telephone encounter Jose Hunter MD Work Phone: Endocrinology Comment on above: Patient Update (Marilee ra) Start: 11-06-2022 Telephone encounter Jose Hunter MD Work Phone: Endocrinology Comment on above: Forms ([employer]) Start: 09-20-2022 End: 09-21-[address] HOWARD SANTIAGO Facility:[facility] Start: 07-04-2022 Telephone encounter Jose Hunter MD Work Phone: Endocrinology Comment on above: Patient Update (Diab etes Management & Supplies) Start: 04-26-2022 End: 04-26-2022 Patient encounter procedure Araceli Bullock APRN.FLAG MAKER Work Phone: Endocrinology Comment on above: 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); Insulin pump status; Insulin pump titration; long term (current) use of insulin (HCC) Start: 03-19-2022 End: 03-20-[address] HOWARD SANTIAGO Facility:[facility] Start: 01-01-2022 Telephone encounter Araceli conley APRN.FLAG MAKER Work Phone: Endocrinology Comment on above: Dexcom Start: 08-20-2018 End: 08-21-2018 Patient encounter hola SANTIAGO Facility:[facility] Start: 06-25-2018 End: 06-26-2018 Patient encounter AYLEEN HICKEY Facility:[facility] Start: 06-15-2018 End: 06-17-2018 Evaluation and management of inpatient BRYCE BOLTON Facility:[facility] Start: 06-15-2018 End: 06-16-2018 Patient encounter DEFAULT PHYSICIAN Facility:[facility] Start: 06-10-2018 End: 06-11-2018 Patient encounter DEFAULT PHYSICIAN Facility:[facility] Procedures Date Procedure Procedure Detail Performing Clinician Start: 07-06-2024 [facility] CBC W AUTO DIFF BLD Generic External Data Provider Start: 07-06-2024 Blood count complete auto&auto difrntl wbc Melecio Vazquez MD Work Phone: Start: 06-03-2024 Antibody screen JERAMY GARRIDO Comment on above: Order Comment: Specimen Type: BLOOD SPEC IMENOrdering Facility: [facility] Address: [address] [place] [address] Performed By: #### T SCR ####[facility] BLOOD BANKCLIA [id number] [address] [place] Start: 05-20-2024 Sigmoidoscopy flx dx w/collj spec br/wa if pfrmd Pamela Hamilton MD Work Phone: Start: 05-20-2024 Gluc bld gluc mntr dev cleared fda spec home use Sydney Carbajal APRN.LIBRARY SUPERVISOR Work Phone: Start: 04-21-2024 Colonoscopy flx dx w/collj spec when pfrmd Amparo Martinez APRN.FLAG MAKER Work Phone: Start: 04-21-2024 Esophagogastroduodenoscopy transoral diagnostic Amparo Martinez APRN.FLAG MAKER Work Phone: Start: 04-21-2024 Colonoscopy Sandy Flores MD Work Phone: Start: 06-30-2017 Colonoscopy Araceli Bullock APRN.FLAG MAKER Work Phone: Start: 05-23-2016 Mammography Araceli Bullock APRN.FLAG MAKER Work Phone: Plan of Treatment Date Care Activity Detail Author Start: 05-20-2029 Screening for malignant neoplasm of colon Sigmoidoscopy [facility] Start: 04-21-2029 Screening for malignant neoplasm of colon [facility] Start: 06-30-2027 Screening for malignant neoplasm of colon [facility] Start: 06-17-2025 BP Controlled (<130/80) BP Controlled (<130/80) [facility] Start: 03-23-2025 BP Controlled (<130/80) BP Controlled (<130/80) [facility] Start: 03-15-2025 Urine screening for protein Diabetes: Urine Protein Screening [facility] Start: 03-01-2025 Screening for malignant neoplasm of breast Mammogram [facility] Comment on above: Postponed from 1991 (Patient Refus ed) Start: 12-30-2024 Hepatitis B surface antibody level LDL Cholesterol [facility] Start: 12-15-2024 Glaucoma screening Diabetes: Retinopathy Screening [facility] Start: 10-24-2024 Glaucoma screening Diabetes: Retinopathy Screening [facility] Start: 10-12-2024 Hemoglobin A1c measurement HbA1C [facility] Start: 10-09-2024 Urine screening for protein Diabetes: Urine Protein Screening [facility] Start: 09-10-2024 End: 09-10-2024 Patient encounter procedure 09/10/2024 1:00 PM EST Office Visit Colorectal Surgery [facility] [address] [place] [address] Jeramy Garrido MD [facility] [address] [place], [place] [phone] 3 months follow Colorectal Surgery Comment on above: 3 months follow Start: 08-06-2024 End: 08-05-2025 NM Whole body Bone Views NM BONE WHOLE BODY Radiology Routine Malignant neoplasm of sigmoid colon (HCC) Expected: 08/06/2024, Expires: 08/05/2025 [facility] Comment on above: Expected: 08/06/2024, Expires: Start: 07-27-2024 End: 10-26-2024 CBC W Auto Differential panel - Blood COMPLETE BLOOD COUNT AND DIFFERENTIAL Lab Routine Malignant neoplasm of sigmoid colon (HCC) Expected: 07/27/2024 (Approximate), Expires: 10/26/2024 [facility] Comment on above: Expected: 07/27/2024 (Approximate), Expi res: 10/26/2024 Start: 07-27-2024 End: 10-26-2024 Comprehensive metabolic 2000 panel - Serum or Plasma COMPREHENSIVE METABOLIC PANEL Lab Routine Malignant neoplasm of sigmoid colon (HCC) Expected: 07/27/2024 (Approximate), Expires: 10/26/2024 [facility] Comment on above: Expected: 07/27/2024 (Approximate), Expi res: 10/26/2024 Start: 07-27-2024 End: 07-27-2024 Follow-up encounter 07/27/2024 1:30 PM EST Visit (SP) Office Hematology/Oncology [address] [place] [address] [place] [address] Melecio Vazquez MD [address] [place] [address] [place] [address] 3 week follow up Hematology/Oncology Comment on above: 3 week follow up Start: 07-27-2024 End: 07-27-2024 Patient encounter procedure 07/27/2024 1:30 PM EST Visit (SP) Office Hematology/Oncology [address] [place] [address] [place] [address] Melecio Vazquez MD [address] [place] [address] [place] [address] Please scheduled Nutrition referral too Hematology/Oncology Comment on above: Please scheduled Nutrition referral too Start: 07-20-2024 End: 07-20-2024 Patient encounter procedure 07/20/2024 1:30 PM EDT Office Visit [facility] [address] [place] [address] Stephanie Zheng DO [address] [place], [place] [phone] [facility] Start: 07-20-2024 End: 07-20-2024 Patient encounter procedure 07/20/2024 10:35 AM EDT Office Visit [facility] [address] [place] [address] Nakia Steele MD [address] [place] [address] [facility] Start: 07-16-2024 End: 07-16-2024 Patient encounter procedure 07/16/2024 10:20 AM EDT Office Visit [facility] [address] [place] [phone] Nakia Steele MD [address] [place], [place] [phone] [facility] Start: 07-15-2024 End: 07-15-2024 Patient encounter procedure 07/15/2024 11:30 AM EDT Office Visit [facility] [address] [place] [address] Howard Santiago MD [address] [place] [address] [facility] Start: 07-12-2024 Hemoglobin A1c measurement Diabetes: Hemoglobin A1C [facility] Start: 07-09-2024 End: 07-09-2024 Patient encounter procedure 07/09/2024 11:15 AM EDT Office Visit [facility] [address] [place] [phone] Stephanie Zheng DO [address] [place], [place] [phone] 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) [facility] Comment on above: DM type 1 with diabetic peripheral neuro maninder (CMS/HCC) Start: 07-06-2024 End: 10-05-2024 Carcinoembryonic Ag [Mass/volume] in Serum or Plasma [facility] Comment on above: Expected: 07/06/2024, Expires: Start: 07-06-2024 End: 10-05-2024 Cobalamin (Vitamin B12) [Mass/volume] in Serum or Plasma [facility] Comment on above: Expected: 07/06/2024, Expires: Start: 07-06-2024 End: 10-05-2024 Ferritin [Mass/volume] in Serum or Plasma [facility] Work Phone: Comment on above: Expected: 07/06/2024, Expires: Start: 07-06-2024 End: 10-05-2024 Folate [Mass/volume] in Serum or Plasma [facility] Comment on above: Expected: 07/06/2024, Expires: Start: 07-06-2024 Hemoglobin A1c measurement HbA1C [facility] Start: 07-06-2024 End: 10-05-2024 Iron and Iron binding capacity panel - Serum or Plasma [facility] Comment on above: Expected: 07/06/2024, Expires: Start: 07-06-2024 End: 07-06-2024 Nursing evaluation of patient and report 07/06/2024 2:00 PM EDT Nurse Visit Hematology/Oncology [address] [place] [address] [place] [address] Janneth Fan RN [address] [place] [address] [place] [address] Chemo Ed Hematology/Oncology Comment on above: Chemo Ed Start: 07-06-2024 End: 07-06-2024 Follow-up encounter 07/06/2024 1:30 PM EDT Visit (SP) Office Hematology/Oncology [address] [place] [address] [place] [address] Melecio Vazquez MD [address] [place] [address] [place] [address] 3 week follow up Hematology/Oncology Comment on above: 3 week follow up Start: 06-17-2024 End: 06-17-2024 Patient encounter procedure 06/17/2024 3:00 PM EDT Office Visit Colorectal Surgery [address] [place] [address] Rafaela Baum, ELECTRICIAN SUPERVISOR [employer]PLANE.FLAG MAKER [address] [place] [address] Follow Up Reason: 2 wk f/up, S/p lap assisted left colectomy 06/03 Colorectal Surgery Comment on above: Follow Up Reason: 2 wk f/up, S/p lap ass isted left colectomy 06/03 Start: 06-15-2024 End: 09-14-2024 Carcinoembryonic Ag [Mass/volume] in Serum or Plasma CARCINOEMBRYONIC ANTIGEN Lab Routine Malignant neoplasm of sigmoid colon (HCC) Expected: 06/15/2024, Expires: 09/14/2024 [facility] Comment on above: Expected: 06/15/2024, Expires: Start: 06-15-2024 End: 09-14-2024 CBC W Auto Differential panel - Blood COMPLETE BLOOD COUNT AND DIFFERENTIAL Lab Routine Malignant neoplasm of sigmoid colon (HCC) Expected: 06/15/2024, Expires: 09/14/2024 [facility] Work Phone: Comment on above: Expected: 06/15/2024, Expires: Start: 06-15-2024 End: 09-14-2024 Cobalamin (Vitamin B12) [Mass/volume] in Serum or Plasma VITAMIN B12 Lab Routine Malignant neoplasm of sigmoid colon (HCC) Expected: 06/15/2024, Expires: 09/14/2024 [facility] Comment on above: Expected: 06/15/2024, Expires: Start: 06-15-2024 End: 09-14-2024 Comprehensive metabolic 2000 panel - Serum or Plasma COMPREHENSIVE METABOLIC PANEL Lab Routine Malignant neoplasm of sigmoid colon (HCC) Expected: 06/15/2024, Expires: 09/14/2024 [facility] Comment on above: Expected: 06/15/2024, Expires: Start: 06-15-2024 End: 09-14-2024 Ferritin [Mass/volume] in Serum or Plasma FERRITIN Lab Routine Malignant neoplasm of sigmoid colon (HCC) Expected: 06/15/2024, Expires: 09/14/2024 [facility] Comment on above: Expected: 06/15/2024, Expires: Start: 06-15-2024 End: 09-14-2024 Folate [Mass/volume] in Serum or Plasma FOLATE, SERUM Lab Routine Malignant neoplasm of sigmoid colon (HCC) Expected: 06/15/2024, Expires: 09/14/2024 [facility] Comment on above: Expected: 06/15/2024, Expires: Start: 06-15-2024 End: 09-14-2024 Iron and Iron binding capacity panel - Serum or Plasma IRON AND TIBC Lab Routine Malignant neoplasm of sigmoid colon (HCC) Expected: 06/15/2024, Expires: 09/14/2024 [facility] Comment on above: Expected: 06/15/2024, Expires: Start: 06-15-2024 End: 09-14-2024 MISC SEND OUT TST 1 [facility] Comment on above: Expected: 06/15/2024, Expires: Start: 06-15-2024 End: 06-15-2024 ambulatory 06/15/2024 11:00 AM EDT Visit (SP) Office Hematology/Oncology [address] [place] [address] [place] [address] Melecio Vazquez MD [address] [place] [address] [address] [place] [phone] Ref by Dr Jeramy Garrido DX: rectosigmoid/sigmoid colon cancer Hematology/Oncology Comment on above: Ref by Dr Jeramy Garrido DX: rectosigmoid/s igmoid colon cancer Start: 06-03-2024 End: 06-03-2024 Admission to same day surgery center 06/03/2024 9:53 AM EDT - 06/03/2024 1:33 PM EDT Surgery [facility] Operating Room [address] [place] [address] [place] [address] [place] [phone] LAPAROSCOPIC HEMICOLECTOMY WITH ANASTOMOSIS [facility] Operating Room Comment on above: LAPAROSCOPIC HEMICOLECTOMY WITH ANASTOMO SIS Start: 06-03-2024 End: 06-03-2024 Laparoscopy colectomy partial w/anastomosis LAPAROSCOPIC HEMICOLECTOMY WITH ANASTOMOSIS Rectal cancer (HCC) 06/03/2024 9:53 AM EDT [facility] Start: 06-03-2024 Subsequent hospital visit by physician 06/03/2024 9:53 AM EDT Hospital Encounter [facility] Operating Room [address] [place] [address] [facility] [address] [place], [place] [phone] Rectal cancer (HCC) [C20] [facility] Operating Room Comment on above: Rectal cancer (HCC) [C20] Start: 06-02-2024 End: 09-01-2024 CBC panel - Blood by Automated count [facility] Work Phone: Comment on above: Expected: 06/02/2024, Expires: Start: 06-02-2024 End: 09-01-2024 Comprehensive metabolic 2000 panel - Serum or Plasma [facility] Comment on above: Expected: 06/02/2024, Expires: 4 Start: 06-02-2024 End: 06-02-2024 Patient encounter procedure 06/02/2024 10:40 AM EDT [facility] [place] [phone] Jeramy Garrido MD [place] [address] [address] est patient, rectal cancer, to discuss test results/tumor board (BANS PT) Colorectal Surgery Comment on above: est patient, rectal cancer, to discuss t est results/tumor board (BANS PT) Start: 06-01-2024 End: 06-01-2024 Admission to same day surgery center 06/01/2024 4:00 PM EDT [facility] Colorectal Surgery [facility] [address] [address] [place] [address] [address] [place], [place] [id number] est patient, rectal cancer, to discuss test results/tumor board Colorectal Surgery Comment on above: est patient, rectal cancer, to discuss t est results/tumor board Start: 05-23-2024 Covid-19 Vaccine ( season) Covid-19 Vaccine () [facility] Start: 05-23-2024 Covid-19 Vaccine () Covid-19 Vaccine () [facility] Start: 05-23-2024 Influenza vaccination [facility] Start: 05-20-2024 End: 05-20-2024 Patient encounter procedure Procedures Comment on above: sigmoidoscopy rectal cancer Ban schedule d patient Start: 05-17-2024 End: 05-17-2024 Patient encounter procedure 05/17/2024 1:40 PM EDT Appointment Radiology [address] [place] [address] MRI Rectum Radiology Comment on above: MRI Rectum Start: 04-21-2024 End: 04-21-2024 Patient encounter procedure 04/21/2024 7:00 AM EDT Appointment [facility] [place] [address] [facility] [address] [place] [phone] Sandy Cristobal I, MD [address] [place] [address] [place] [place] Start: 02-27-2024 End: 02-27-2024 Patient encounter procedure 02/27/2024 8:00 AM EDT Appointment [place] [facility] [place] [address] [facility] [address] [place] [address] Sandy Cristobal I, MD [address] [place] [address] [facility] Start: 01-19-2024 End: 04-19-2024 CELIAC SCREEN WITH REFLEX CELIAC SCREEN WITH REFLEX Lab Routine Iron deficiency anemia, unspecified iron deficiency anemia type Expected: 01/19/2024, Expires: 04/19/2024 [facility] Work Phone: Comment on above: Expected: 01/19/2024, Expires: 4 Start: 01-12-2024 Hemoglobin A1c measurement Diabetes: Hemoglobin A1C [facility] Start: 01-12-2024 End: 01-12-2024 Patient encounter procedure [facility] Start: 09-22-2023 Advance Directive Discussion Advance Directive Discussion [facility] Start: 09-22-2023 Behavioral Health Screening Behavioral Health Screening [facility] Start: 05-23-2023 Covid-19 Vaccine () Covid-19 Vaccine () [facility] Start: 10-27-2022 Hemoglobin A1c/Hemoglobin.total in Blood HBA1C [facility] Start: 09-22-2022 ADVANCE DIRECTIVE DISCUSSION ADVANCE DIRECTIVE DISCUSSION [facility] Start: 09-22-2022 DEPRESSION ASSESSMENT DEPRESSION ASSESSMENT [facility] Start: 07-03-2022 Hemoglobin A1c/Hemoglobin.total in Blood HBA1C [facility] Start: 06-30-2022 Colonoscopy COLONOSCOPY [facility] Start: 06-30-2022 COLORECTAL CANCER SCREENING COLORECTAL CANCER SCREENING [facility] Start: 06-30-2022 Screening for malignant neoplasm of colon [facility] Start: 06-26-2022 End: 08-26-2022 ALBUMIN/CREAT RATIO RND UR ALBUMIN/CREAT RATIO RND UR Lab Routine 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) Expected: 06/26/2022, Expires: 08/26/2022 [facility] Work Phone: Comment on above: Expected: 06/26/2022, Expires: 2 Start: 06-26-2022 End: 08-26-2022 Comprehensive metabolic 2000 panel - Serum or Plasma COMP METABOLIC PANEL Lab Routine 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) Expected: 06/26/2022, Expires: 08/26/2022 [facility] Work Phone: Comment on above: Expected: 06/26/2022, Expires: 2 Start: 06-26-2022 End: 08-26-2022 Lipid 1996 panel - Serum or Plasma LIPID PANEL BASIC Lab Routine 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) Expected: 06/26/2022, Expires: 08/26/2022 [facility] Work Phone: Comment on above: Expected: 06/26/2022, Expires: 2 Start: 06-07-2022 Hepatitis B screening URINE ALBUMIN:CREATININE RATIO [facility] Start: 06-07-2022 Hepatitis B surface antibody level LDL CHOLESTEROL [facility] Start: 05-23-2022 Influenza vaccination INFLUENZA (#1) [facility] [facility] Start: 04-01-2022 Hemoglobin A1c/Hemoglobin.total in Blood HBA1C [facility] Start: 12-27-2021 COVID-19 VACCINE (4 - Booster for Moderna series) COVID-19 VACCINE (4 - Booster for Moderna series) [facility] Start: 10-23-2021 COVID-19 VACCINE (4 - Booster for Moderna series) COVID-19 VACCINE (4 - Booster for Moderna series) [facility] Start: 09-22-2021 ADVANCE DIRECTIVE DISCUSSION ADVANCE DIRECTIVE DISCUSSION [facility] Start: 09-22-2021 DEPRESSION ASSESSMENT DEPRESSION ASSESSMENT [facility] Start: 09-24-2020 Shingrix Vaccine (3 of 3) Shingrix Vaccine (3 of 3) [facility] Start: 08-03-2017 PNEUMOVAX AGE 65 AND OVER WITH 5YR LOOKBACK (#1) PNEUMOVAX AGE 65 AND OVER WITH 5YR LOOKBACK (#1) [facility] Start: 05-23-2017 3 comp foot exam completed DIABETIC FOOT EXAM [facility] Start: 05-23-2017 Diabetic foot examination Diabetic Foot Exam [facility] Start: 05-23-2017 Mammography MAMMOGRAM [facility] Start: 05-23-2017 Screening for malignant neoplasm of breast Mammogram Screening [facility] Start: 02-20-2017 Glaucoma screening Dilated Retinal Exam [facility] Start: 02-20-2017 Hepatitis C antibody, confirmatory test DILATED RETINAL EXAM [facility] Start: 08-03-2013 PNEUMOCOCCAL: 65+ (2 - PCV) PNEUMOCOCCAL: 65+ (2 - PCV) [facility] Start: 10-30-2012 SHINGRIX VACCINE (2 of 3) SHINGRIX VACCINE (2 of 3) [facility] Start: 2011 RSV Vaccine (1 - 1-dose 60+ series) RSV Vaccine (1 - 1-dose 60+ series) [facility] Start: 2011 RSV Vaccine (1 - Risk 60-74 years 1-dose series) RSV Vaccine (1 - Risk 60-74 years 1-dose series) [facility] Start: 02-02-1996 COLOGUARD (FIT-DNA) COLOGUARD (FIT-DNA) [facility] Start: 02-02-[address] COLONOGRAPHY [facility] Start: 02-02-1996 FECAL OCCULT BLOOD FECAL OCCULT BLOOD [facility] Start: 02-02-1996 Screening for malignant neoplasm of colon [facility] Start: 02-02-1996 SIGMOIDOSCOPY SIGMOIDOSCOPY [facility] Start: 1991 Screening for malignant neoplasm of breast Mammogram [facility] Start: 1970 Urine microalbumin profile [facility] Start: 1969 ANNUAL PCP TEAM CHRONIC DISEASE VISIT ANNUAL PCP TEAM CHRONIC DISEASE VISIT [facility] Start: 1969 Anxiety Screening Anxiety Screening [facility] Start: 1969 BP Controlled (<130/80) BP Controlled (<130/80) [facility] Start: 1969 Depression Screening Depression Screening [facility] Start: 1963 Adult depression screening assessment DEPRESSION SCREENING [facility] Start: 1962 Screening for malignant neoplasm of cervix Cervical Cancer Screening [facility] Start: 1951 Screening for malignant neoplasm of colon [facility] End: 05-27-2025 CT Chest WO contrast CT CHEST WO IVCON Radiology Routine Rectal cancer (HCC) 1 Occurrences starting 04/27/2024 until 05/27/2025 [facility] Comment on above: 1 Occurrences starting 04/27/2024 until 05/27/2025 CT Chest WO contrast CT CHEST WO IVCON Radiology Routine Rectal cancer (HCC) 04/28/2024 5:04 PM EDT [facility] End: 01-18-2025 EGD DIAGNOSTIC EGD DIAGNOSTIC Endoscopy Routine Iron deficiency anemia, unspecified iron deficiency anemia type Hiatal hernia 1 Occurrences starting 01/19/2024 until 01/18/2025 [facility] Comment on above: 1 Occurrences starting 01/19/2024 until 01/18/2025 End: 04-27-2025 Flexible sigmoidoscopy study SIGMOIDOSCOPY Endoscopy Routine Rectal cancer (HCC) 1 Occurrences starting 04/27/2024 until 04/27/2025 [facility] Work Phone: Comment on above: 1 Occurrences starting 04/27/2024 until 04/27/2025 Hemoglobin A1c/Hemoglobin.total in Blood HEMOGLOBIN A1C (POC) Lab Routine 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) Ordered: 04/26/2022 [facility] Work Phone: Comment on above: Ordered: 04/26/2022 End: 05-27-2025 MR Pelvis WO contrast MRI RECTUM WO/W IVCON Radiology Routine Rectal cancer (HCC) 1 Occurrences starting 04/27/2024 until 05/27/2025 [facility] Comment on above: 1 Occurrences starting 04/27/2024 until 05/27/2025 MR Pelvis WO contrast MRI RECTUM WO/W IVCON Radiology Routine Rectal cancer (HCC) 05/17/2024 2:49 PM EDT [facility] Work Phone: End: 01-18-2025 Screening colonoscopy COLONOSCOPY SCREENING Endoscopy Routine Iron deficiency anemia, unspecified iron deficiency anemia type Screening for malignant neoplasm of colon 1 Occurrences starting 01/19/2024 until 01/18/2025 [facility] Comment on above: 1 Occurrences starting 01/19/2024 until 01/18/2025 SURGICAL PATHOLOGY SURGICAL PATH OLOGY Lab Routine Congenital anomaly of esophagus Ordered: 04/21/2024 [facility] Work Phone: Comment on above: Ordered: 04/21/2024 [facility] Immunizations Immunization Date Immunization Notes Care Provider Byron hillman 07-23-2023 Influenza, High-dose Seasonal, Quadrivalent, Preservative Free Jayashree Friday [employer]WARE[employer]PERVISOR Work Phone: [facility] 07-23-2023 influenza virus vacc ine, unspecified formulation Amparo Martinez APRN.CNP Work Phone: [facility] 08-13-2022 influenza (aIIV4) vaccine, age 65+ yr, quadrivalent, PF (FLUAD QUAD) Jeramy Garrido MD Work Phone: [facility] 08-13-2022 influenza, high dose seasonal, preservative-free Jayashree Friday [employer] SUPERVISOR Work Phone: [facility] 06-13-2022 Moderna Bivalent Alvarado ster Vaccination Jayashree Friday [employer]WAREHOUSE SUPERVISOR Work Phone: [facility] 06-12-2021 influenza, high-dose , quadrivalent vaccine (FLUZONE HIGH DOSE QUADRIVALENT) Araceli Bullock APRN.FLAG MAKER Work Phone: [facility] 07-30-2020 zoster vaccine recombinant Jayashree Friday [employer]WAREHOUSE SUPERVISOR Work Phone: [facility] 07-18-2020 influenza, high-dose , quadrivalent vaccine (FLUZONE HIGH DOSE QUADRIVALENT) Araceli Bullock APRN.FLAG MAKER Work Phone: [facility] 05-15-2020 zoster vaccine recombinant Jeramy Garrido MD Work Phone: [facility] 07-20-2019 Influenza, injectabl e, Madin Aleja Canine Kidney, quadrivalent with preservative Jayashree Friday [employer]WAREHOUSE SUPERVISOR Work Phone: [facility] 07-08-2018 Influenza, High-dose Seasonal, Quadrivalent, Preservative Free Jayashree Friday [employer]WAREHOUSE SUPERVISOR Work Phone: [facility] 07-04-2017 pneumococcal polysaccharide vaccine, 23 valent Jayashree Friday [employer]WAREHOUSE SUPERVISOR Work Phone: [facility] 06-16-2017 Influenza, High-dose Seasonal, Quadrivalent, Preservative Free Jayashree Friday [employer]WAREHOUSE SUPERVISOR Work Phone: [facility] 07-30-2016 influenza, injectabl e, quadrivalent, preservative free Jayashree Friday [employer]WAREHOUSE SUPERVISOR Work Phone: [facility] 07-01-2016 influenza, high dose seasonal, preservative-free Araceli Bullock APRN.FLAG MAKER Work Phone: [facility] 03-11-2016 pneumococcal conjuga te vaccine, 13 valent Jayashree Friday [employer]WAREHOUSE SUPERVISOR Work Phone: [facility] 01-22-2016 pneumococcal conjuga te vaccine, 13 valent Jayashree Friday [employer]WAREHOUSE SUPERVISOR Work Phone: [facility] 08-16-2015 influenza, injectabl e, quadrivalent, preservative free Jeramy Garrido MD Work Phone: [facility] 07-05-2014 seasonal influenza, intradermal, preservative free Jayashree Friday [employer]WAREHOUSE SUPERVISOR Work Phone: [facility] 07-23-2013 pneumococcal polysaccharide vaccine, 23 valent Jayashree Friday [employer]WAREHOUSE SUPERVISOR Work Phone: [facility] 07-07-2013 zoster vaccine, live Jayashree M [employer]WAREHOUSE SUPERVISOR Work Phone: [facility] 09-04-2012 zoster vaccine, live Araceli Jac ELECTRICIAN SUPERVISOR AIRPLANE.FLAG MAKER Work Phone: [facility] 08-03-2012 pneumococcal polysaccharide vaccine, 23 valent Araceli Jac ELECTRICIAN SUPER[employer]OR AIRPLANE.[employer] MAKER Work Phone: [facility] 07-29-2009 novel influenza-H1N1 -09, preservative-free, injectable Jeramy Garrido MD Work Phone: [facility] 06-28-2005 pneumococcal polysaccharide vaccine, 23 valent Araceli Jac ELECTRICIAN SUPERVISOR [employer]KER Work Phone: [facility] Payers Date Payer Category Payer Private Health Insurance [facility] INDEMNITY [id number] 2015-Present [phone] [address] [place] [address] Indemnity [id number] 2015 Private Health Insurance [id number] 2004 Medicare [id number] [id number] 2004 Medicare [id number] 1.13.159. [id number] 1959 Medicare [id number] 1959 Unknown [id number] 1951 Unknown [id number] 2.16.840.1.151695.3.579. 2.647 1951 Unknown [id number] 2.16.840.1.587108.3.579. 2.647 1951 Unknown [id number] 2.16.840.1.164680.3.579. 2.647 1951 Unknown [id number] 2.16.840.1.787022.3.579. 2.647 1951 Unknown [id number] 2.16.840.1.313567.3.579. 2.727 1951 Unknown [id number] 2.16.840.1.213395.3.579. 2.593 1951 Unknown [id number] 2.16.840.1.241380.3.579. 2.593 1951 Unknown [id number] 2.16.840.1.179710.3.579. 2.1258 1951 Unknown [id number] 2.16.840.1.260077.3.579. 2.1258 1951 Unknown [id number] 2.16.840.1.280370.3.579. 2.1258 1951 Unknown [id number] 2.16.840.1.738344.3.579. 2.1258 1951 Unknown [id number] 2.16.840.1.431739.3.579. 2.1258 1951 Unknown [id number] 2.16.840.1.743331.3.579. 2.1258 1951 Unknown [id number] 2.16.840.1.933015.3.579. 2.1258 1951 Unknown [id number] 2.16.840.1.472119.3.579. 2.1258 1951 Unknown [id number] 2.16.840.1.685871.3.579. 2.125 1951 Unknown [id number] 2.16.840.1.304474.3.579. 2.1258 1951 Unknown [id number] 2.16.840.1.496514.3.579. 2.1259 1951 Unknown [id number] 2.16.840.1.648231.3.579. 2.1259 1951 Unknown [id number] 2.16.840.1.947553.3.579. 2.1259 Medicare [id number] Unknown Social History Date Type Detail Facility Start: 07-29-2011 End: 06-02-2024 Tobacco smoking status NHIS Ex-smoker [facility] Start: 09-22-1972 End: 09-22-2002 History of tobacco use Current smoker [facility] Start: 09-22-1972 End: 09-22-2002 History of tobacco use Cigarette Smoker [facility] Start: 01-01-2022 End: 01-19-2024 Alcohol intake Current drinker of alcohol (finding) [facility] Start: 1950 Sex Assigned At Female [facility] Start: 12-22-2021 End: 01-01-2022 Exposure to SARS-CoV-2 (event) Not sure [facility] Start: 07-29-2011 End: 01-19-2024 Cigarettes smoked current (pack per day) - Reported 1 [facility] Start: 07-29-2011 End: 06-02-2024 Tobacco use and exposure Smokeless tobacco non-user [facility] Work Phone: Start: 02-13-2023 Tobacco smoking status [facility] Never smoked tobacco [facility] Start: 10-13-2023 End: 06-21-2024 Alcohol intake Lifetime non-drinker (finding) [facility] Start: 04-30-2023 End: 01-19-2024 Humiliation, Afraid, Rape, and Kick questionnaire [HARK] [facility] Within the last year , have you been afraid of your partner or ex-partner? No [facility] Do you belong to any clubs or organizations such as caodaism groups, unions, fraternal or athletic groups, or school groups? Yes [facility] Are you now , , , , never or living with a partner? [facility] How often to you hav e a drink containing alcohol? Never [facility] How many standard dr [place] containing alcohol do you have on a typical day? Patient does not drink [facility] Do you feel stress - tense, restless, nervous, or anxious, or unable to sleep at night because your mind is troubled all the time - these days [OSQ] To some extent [facility] (I/We) worried wheth er (my/our) food would run out before (I/we) got money to buy more. Never true [facility] Start: 01-24-2023 Alcohol Comment Caffeine: Coffee, Intake: 2-3 cups per day [facility] Start: 1950 Sex Assigned At Not on file [facility] Start: 09-17-2021 Gender identity Identifies as female gender (finding) [facility] Start: 09-17-2021 Sexual orientation Heterosexual (finding) [facility] Start: 04-21-2024 End: 07-06-2024 Alcohol intake Ex-drinker (finding) [facility] Medical Equipment Procedure Code Equipment Code Equipment Original Text Equipment Identifier Dates [id number] Start: 11-04-2013 Comment on above: One touch ultra blue test strips, insulin pump, iddm, 250.00, tests 5 x daily. Wire Kait .045in Stainless Steel 4in Fixation 2 [place] End - [id number] Start: 11-02-2015 [id number], [id number], [id number], [id number], [id number] Start: 04-10-2021 End: 01-19-2024 Comment on above: USE TO TEST BLOOD PRETTY GARS 5 TIMES DAILY Use as directed four times daily for insulin injections in case of pump failure Dx: E10.649 Use to test blood pretty gar 8 times daily One touch ultra blue test strips, insulin pump, iddm, 250.00, tests 5 x daily. [id number] Start: 11-04-2013 End: 01-19-2024 Clinical Notes 12-18-2009 to 07-12-2024 Patient InstructionsMelecio Vazquez MD - 07/12/2024 2:00 PM Ngoc Bolivar MA - 07/12/2024 1:58 PM Ngoc Mota MA - 07/12/2024 1:58 PM EDTPatient Instructions Note Date & Type Note Facility 07-12-2024 Instructions Melecio Vazquez MD - 07/12/2024 2:15 PM EDT F/u as scheduled. documented in this encounter [facility] 07-12-2024 History of Present illness Narrative PATIENT NAME: Rodrigue Wallace [facility] NO.: [id number] ATTENDING PHYSICIAN: Melecio Vazquez MD DATE OF SERVICE: 07/12/[address] Jeramy Garrido [id number] [address] thank you for referring Rodrigue Wallace for an opinion regarding colon cacner. Some of the elements of this note have been copied from my previous progress note dated 06/15/24. All the information has been reviewed carefully. CHIEF COMPLAINT: colon cancer. HPI: Rodrigue Wallace is a 74 year old year old female referred to us for recently diagnosed colon cancer. Sigmoidoscopy 05/20/24 - Malignant tumor in the sigmoid colon. Tattooed. - No specimens collected. Colonoscopy 04/21/24 - Dr. Sandy Cristobal - Likely malignant tumor in the proximal rectum, in the recto-sigmoid colon and in the distal sigmoid colon. Biopsied. - Moderate diverticulosis in the sigmoid colon. There was no evidence of diverticular bleeding. - Diverticulosis in the entire examined colon. - The examined portion of the ileum was normal. Pathology DISTAL SIGMOID COLON MASS, BIOPSY: FRAGMENTS OF INVASIVE ADENOCARCINOMA. MRI rectum 05/17/24 No rectal mass identified. Suspicion of mild wall thickening with minimally restricted diffusion in the sigmoid colon which may represent the tumor. Stage: T1/2 N0 MRF: Clear (tumor margin >2 mm from MRF) Sphincter involvement: No. Suspicious extra mesorectal lymph nodes: No. EMVI: No. CT chest 04/28/24 No intrathoracic lymphadenopathy. Multiple small nonspecific scattered bilateral pulmonary nodules (measuring up to 4 mm in size). Of note, 3 mm and 2 mm most inferiorly located nodules are stable compared with limited images through the lung bases on prior CT imaging of the abdomen and pelvis dated 03/05/2024 and 02/26/2024. Mild stable superior endplate deformity and mild chronic loss of height at L1. No thoracic vertebral body compression deformities. Scattered nonspecific tiny sclerotic foci within multiple bilateral ribs and 7 mm sclerotic lesion along the anterior inferior sternum as described. Suspect small nonspecific osseous lucent lesion within the ninth LEFT lateral rib. CT abdomen/pelvis 03/05/24 Falciform hypodensity focal increased fat, posterior diaphragmatic hernia containing stomach, colonic diverticulosis without diverticulitis s/p Laparoscopic Proctosigmoidectomy (Anterior Resection), Laparoscopic Mobilization of Splenic Flexure, Flexible Sigmoidoscopy with Dr. Garrido on 06/03/2024 for rectosigmoid colon cancer FINAL DIAGNOSIS Left colon and rectum, resection: - Invasive moderately differentiated adenocarcinoma (see synoptic report). - Metastatic adenocarcinoma involving one of twenty-two lymph nodes (10/13). - Submucosal lipoma. - Diverticulosis Clinical Pathologic Stage: pT2 pN1a Mx stage IIIA. MSI intact. Doing well currently. Eating and drinking good. No bowel or urinary complaints. Updated visit 07/06/24: - Doing well - No major complaints - Eating and drinking good. Visit 07/12/24: - Co pain and weakness in the arms started last night - No other complaints. - Due for bone scan tmrw - Symptoms resolved now. Current Outpatient Medications Medication Sig celecoxib (CELEBREX) 200 mg capsule Take 200 mg by mouth once daily. famotidine (PEPCID) 20 mg tablet Take 20 mg by mouth two times a day as needed. prochlorperazine (COMPAZINE) 10 mg tablet Take 1 tablet by mouth every 6 hours as needed. ondansetron (ZOFRAN) 8 mg tablet Take 1 tablet by mouth every 8 hours as needed for nausea/vomiting. capecitabine (XELODA) 500 mg tablet Take 3 tablets twice daily 2 weeks on, 1 week off. sertraline (ZOLOFT) 100 mg tablet Take 50 mg by mouth once daily. lisinopril (ZESTRIL) 20 mg tablet Take 20 mg by mouth once daily. fluticasone (FLONASE ALLERGY RELIEF) 50 mcg/actuation nasal spray Use 1 Mobile in each nostril as directed. iv contrast (will be provided with radiology test) MRI Rectum Inject, intravenously, once for 1 dose. No IV access, insert saline lock prior to the beginning of sedation, infusion, injection of imaging exam. Discontinue saline lock post exam. If Pt has a central line or IVAD, may access for administration according to line specific nursing protocol. Once exam is complete flush line and de-access according to line specific nursing protocol in the MR contrast administration guidelines link. enteric contrast (will be provided with radiology test) MRI RECTUM WO/W. Administer, As Directed One Time Only, via Oral, Rectal, both Oral and Rectal, Enteric Tube, Stoma or Indwelling Catheter, Enteric Contrast as designated per enteric contrast guidelines rosuvastatin (CRESTOR) 5 mg tablet Take 5 mg by mouth once daily. amLODIPine (NORVASC) 10 mg tablet Take 10 mg by mouth once daily. NOVOLOG U-100 INSULIN ASPART 100 unit/mL Use via insulin pump, 30 units daily cholecalciferol (VITAMIN D3) 1,000 unit tab Take 2 tablets by mouth once daily. esomeprazole (NEXIUM) 40 mg capsule Take 1 capsule by mouth once daily. (Patient not taking: Reported on 07/06/2024) No current facility-administered medications for this visit. ALLERGIES Allergen Reactions Fosamax [Alendronat* Other: See Comments Leg cramps, severe Macrodantin [Nitrof* Vomiting Penicillins Itching PAST MEDICAL HISTORY Diagnosis Date Arthritis Diverticulitis Former smoker GERD (gastroesophageal reflux disease) HTN (hypertension) Hypercholesteremia IDDM (insulin dependent diabetes mellitus) Low blood potassium Low iron Low salt syndrome Mental disorder Snoring PAST SURGICAL HISTORY Procedure Laterality Date ANTERIOR DISCECTOMY ARTHROSCOPY KNEE DIAGNOSTIC W/WO SYNOVIAL BX SPX Right 04/11/2010 Arthroscopy, knee BREAST AUGMENTATION WITH IMPLANT 1976 bilateral silicone implants COLONOSCOPY 06/30/2017 Susu- diverticulosis, repeat in 5 years EGD 10/16/2015 PAST SURGICAL HISTORY OF 03/22/2010 pulled abscess tooth: cipro for 10 days. PAST SURGICAL HISTORY OF right shoulder surgery PAST SURGICAL HISTORY OF Left 11/02/2015 arthroplasty base L thumb. PAST SURGICAL HISTORY OF all teeth removed for dentures TOTAL ABDOMINAL HYSTERECT W/WO RMVL TUBE OVARY 1990 RAUL-BSO FAMILY HISTORY Problem Relation Age of Onset other (Other [Other]) Unknown No known family history of breast cancer Thyroid Daughter Thyroid Sister Thyroid Maternal Aunt Diabetes Mother Type 2 DM, age 96 Emphysema Father age 76 Colon Cancer Sister Heart Sister Cancer Brother lung cancer Coronary Artery Disease Brother other (prediabetic [Other]) Brother Social History Tobacco Use Smoking status: Former Current packs/day: 0.00 Average packs/day: 1 pack/day for 30.0 years (30.0 ttl pk-yrs) Types: Cigarettes Start date: 09/22/1972 Quit date: 09/22/2002 Years since quittin.8 Smokeless tobacco: Never Vaping Use Vaping status: Never Used Substance Use Topics Alcohol use: Not Currently Drug use: No REVIEW OF SYSTEMS GENERAL: No weight loss, malaise or fevers. No night sweats. HEENT: Negative for headaches, No changes in hearing or vision, no nose bleeds or other nasal problems. RESPIRATORY: Negative for cough, wheezing and shortness of breath CARDIOVASCULAR: Negative for chest pain, leg swelling and palpitations GI: Negative for abdominal discomfort, blood in stools or black stools and change in bowel habits : Negative for dysuria, frequency and incontinence MUSCULOSKELETAL: Negative for joint pain or swelling, back pain, and muscle pain. SKIN: Negative for lesions, rash, and itching. HEMATOLOGY/LYMPHOLOGY Negative for prolonged bleeding, bruising easily, and swollen nodes. NEURO: Negative for numbness or tingling of hands/feet. No weakness. PHYSICAL EXAMINATION: There were no vitals taken for this visit. There were no vitals taken for this visit. Last 3 Encounter Wt Readings: Date: Wt: 06/02/2024 63.5 kg (140 lb) 04/27/2024 63.5 kg (140 lb) 04/21/2024 63.5 kg (140 lb) General appearance:ECOG PERFORMANCE STATUS: 1- Restricted in physically strenuous activity. Carries out light duty. Patient in NAD. Skin: Skin color, texture, turgor normal. No rashes or lesions. Eyes: Anicteric sclera. Pupils are equally round and reactive to light. Extraocular movements are intact. Breast: No palpable breast masses. No nipple change or discharge. Lymph Nodes: No cervical, supraclavicular, axillary or inguinal adenopathy. Oropharynx: Lips, mucosa, and tongue normal. Back: No pain to percussion. Negative SLR test Lungs clear to auscultation, No wheezing or rhonchi Heart: RRR without murmur, gallop, or rubs. Abdomen soft, non-tender. No masses, organomegaly Extremities: No deformities. No edema Neuro: Gait and speech normal. Reflexes normal and symmetric. Muscular strength intact. Sensation grossly intact. Rectal: Deferred : Deferred LABS: Glucose (mg/dL) Date Value 07/06/2024 255 06/07/2021 175 Potassium (mmol/L) Date Value 07/06/2024 4.3 06/07/2021 4.9 Sodium (mmol/L) Date Value 07/06/2024 128 06/07/2021 131 Chloride (mmol/L) Date Value 07/06/2024 90 06/07/2021 91 CO2 (mmol/L) Date Value 07/06/2024 27 06/07/2021 28 Creatinine (mg/dL) Date Value 07/06/2024 0.58 06/07/2021 0.54 BUN (mg/dL) Date Value 07/06/2024 11 06/07/2021 7 Anion Gap (mmol/L) Date Value 07/06/2024 11 06/07/2021 12 Calcium (mg/dL) Date Value 06/07/2021 9.8 Calcium, Total (mg/dL) Date Value 07/06/2024 9.4 Protein, Total (g/dL) Date Value 07/06/2024 7.5 06/07/2021 7.4 Albumin (g/dL) Date Value 07/06/2024 4.4 06/07/2021 4.3 Bilirubin, Total (mg/dL) Date Value 07/06/2024 0.3 06/07/2021 0.3 Alkaline Phosphatase (U/L) Date Value 07/06/2024 81 06/07/2021 178 AST (U/L) Date Value 07/06/2024 18 06/07/2021 16 ALT (U/L) Date Value 07/06/2024 6 06/07/2021 <5 WBC Date Value Ref Range Status 07/06/2024 6.76 3.70 - 11.00 k/uL Final RBC Date Value Ref Range Status 07/06/2024 4.46 3.90 - 5.20 m/uL Final Hemoglobin Date Value Ref Range Status 07/06/2024 12.6 11.5 - 15.5 g/dL Final Hematocrit Date Value Ref Range Status 07/06/2024 38.2 36.0 - 46.0 % Final MCV Date Value Ref Range Status 07/06/2024 85.7 80.0 - 100.0 fL Final MCH Date Value Ref Range Status 07/06/2024 28.3 26.0 - 34.0 pg Final MCHC Date Value Ref Range Status 07/06/2024 33.0 30.5 - 36.0 g/dL Final RDW-CV Date Value Ref Range Status 07/06/2024 20.1 (H) 11.5 - 15.0 % Final Platelet Count Date Value Ref Range Status 07/06/2024 294 150 - 400 k/uL Final MPV Date Value Ref Range Status 07/06/2024 9.6 9.0 - 12.7 fL Final Abs Neut Date Value Ref Range Status 07/06/2024 4.10 1.45 - 7.50 k/uL Final Lymphocytes % Date Value Ref Range Status 07/06/2024 30.5 % Final Abs Lymph Date Value Ref Range Status 07/06/2024 2.06 1.00 - 4.00 k/uL Final Monocytes % Date Value Ref Range Status 07/06/2024 6.1 % Final Abs [place] Date Value Ref Range Status 07/06/2024 0.41 <0.87 k/uL Final Abs Eosin Date Value Ref Range Status 07/06/2024 0.16 <0.46 k/uL Final Basophils % Date Value Ref Range Status 07/06/2024 0.1 % Final Abs Baso Date Value Ref Range Status 07/06/2024 <0.03 <0.11 k/uL Final PATH: FINAL DIAGNOSIS Left colon and rectum, resection: - Invasive moderately differentiated adenocarcinoma (see synoptic report). - Metastatic adenocarcinoma involving one of twenty-two lymph nodes (10/13). - Submucosal lipoma. - Diverticulosis. Lymphatic and / or Vascular Invasion Present Perineural Invasion Not identified Tumor Budding Score Low (0-4) MARGINS Margin Status for Invasive Carcinoma All margins negative for invasive carcinoma REGIONAL LYMPH NODES Regional Lymph Node Status Tumor present in regional lymph node(s) Number of Lymph Nodes with Tumor 1 Number of Lymph Nodes Examined 22 Tumor Deposits Not identified Clinical Pathologic Stage: [id number] stage IIIA. MSI intact. IMAGING: CT Chest (04/28/24)- No intrathoracic lymphadenopathy. Multiple small nonspecific scattered bilateral pulmonary nodules (measuring up to 4 mm in size). Of note, 3 mm and 2 mm most inferiorly located nodules are stable compared with limited images through the lung bases on prior CT imaging of the abdomen and pelvis dated 03/05/2024 and 02/26/2024. Mild stable superior endplate deformity and mild chronic loss of height at L1. No thoracic vertebral body compression deformities. Scattered nonspecific tiny sclerotic foci within multiple bilateral ribs and 7 mm sclerotic lesion along the anterior inferior sternum as described. Suspect small nonspecific osseous lucent lesion within the ninth LEFT lateral rib ASSESSMENT AND PLAN: Rodrigue Wallace is a 74 year old year old female referred to us for colon cancer. Diabetes. s/p Laparoscopic Proctosigmoidectomy (Anterior Resection), Laparoscopic Mobilization of Splenic Flexure, Flexible Sigmoidoscopy with Dr. Garrido on 06/03/2024 for rectosigmoid colon cancer. Left colon and rectum, resection: - Invasive moderately differentiated adenocarcinoma (see synoptic report). - Metastatic adenocarcinoma involving one of twenty-two lymph nodes (10/13). - Submucosal lipoma. - Diverticulosis. Clinical Pathologic Stage: pT2 pN1a Mx. stage IIIA. MSI intact. - Explained to her in detail the adjuvant chemotherapy options for the stage III colon cancer. - Given she is greater than 70 years of age, we will do single agent Xeloda. - Will start Xeloda at 1000 mg/m , 1500 mg twice daily 2 weeks on 1 week off, for 6 months - Signatera test is negative PLAN: - Started Xeloda on 07/06/24. - Monitor the lung nodules for now. - Due for bone scan tomorrow. - Chest discomfort , arm pain and weakness has resolved. - Advised to take Pepcid daily, Maalox and Tylenol as needed. - All her questions answered in detail. Follow-up in [address] Jeramy Garrido [address] [place] [address] [facility] [id number] thank you for allowing me to participate in Rodrigue Wallace care, if there are any questions or concerns please do not hesitate to contact me at the number below. I spent a total of 20 minutes on the date of the service which included preparing to see the patient, [id number] patient care, completing clinical documentation, obtaining and/or reviewing separately obtained history, performing a medically appropriate examination, counseling and educating the patient/family/caregiver, ordering medications, tests, or procedures, communicating with other HCPs (not separately reported), independently interpreting results (not separately reported), communicating results to the patient/family/caregiver, and care coordination (not separately reported). Melecio Vazquez MD. Hematology/Medical Oncology [facility] [place] [phone] CC: documented in this encounter [facility] 07-12-2024 Nurse Note Patient did not feel well last night (see phone encounter) it started yesterday morning, arms were lifeless chino like atrophy , chest pain, stomach hurt that radiated to back. They wondering if Gallbladder. Ngoc Smalls MA [facility] 07-12-2024 Nurse Note Patient did not feel well last night (see phone encounter) it started yesterday morning, arms were lifeless chino like atrophy , chest pain, stomach hurt that radiated to back. They wondering if Gallbladder. Ngoc Smalls MA documented in this encounter [facility] 07-12-2024 Telephone encounter Note Phoned Rodrigue she will be here in office at 2pm. [facility] 07-12-2024 Miscellaneous Notes Phoned Rodrigue she will be here in office at 2pm. Please tell her to come to the office to see me. Thanks Pt calls stating she had a rough day yesterday and night last night. States she had a cold sensation and ache deep in her chest that radiated down both of her arms to her hands, so bad she couldn't even use her arms yesterday. Pt states they were very weak. Pt also had difficulties breathing all day yesterday, stating SOB would come and go randomly. Pt took equate antacid and 4 rolaids with some relief. Pt did not take her Xeloda last night because she was scared to for how she felt all day. Denies N/V, denies D/C. Pt afraid to take Xeloda this morning. Asking what she should do? Please advise Janneth Fan RN documented in this encounter [facility] 07-12-2024 Telephone encounter Note Please tell her to come to the office to see me. Thanks [facility] 07-12-2024 Telephone encounter Note Pt calls stating she had a rough day yesterday and night last night. States she had a cold sensation and ache deep in her chest that radiated down both of her arms to her hands, so bad she couldn't even use her arms yesterday. Pt states they were very weak. Pt also had difficulties breathing all day yesterday, stating SOB would come and go randomly. Pt took equate antacid and 4 rolaids with some relief. Pt did not take her Xeloda last night because she was scared to for how she felt all day. Denies N/V, denies D/C. Pt afraid to take Xeloda this morning. Asking what she should do? Please advise Janneth Fan RN [facility] Work Phone: 07-06-2024 Note HNO ID: [id number] Author: JANNETH FAN RN Service: ? Author Type: Registered Nurse Type: Progress Notes Filed: 07/06/2024 14:41 Note Text: ORAL ANTI-CANCER AGENTS EDUCATION patient and spouse here today for oral medication education of Xeloda (capecitabine) for Colon / Rectal Cancer Anticipated/Scheduled start date: tomorrow, 07/07/24 READINESS TO LEARN Cognitive Ability: Alert and oriented Motivation to Learn: Interested Family Support: High - Very involved in pt care Instruction Provided to: Patient and Spouse Patient learns best by: Multiple Methods Factors affecting learning: None Physical limitation affecting learning: None POMPA ASSESSMENT: 1.) Verified that patient knows that the oral agents are for cancer and are taken by mouth. Yes 2.) Medication review completed during visit. Yes 3.) Patient is able to swallow pills. Yes 4.) Patient is able to read the drug label/information. Yes 5.) Patient is able to open the medication bottles and packages. Yes 6.) Has patient taken other pills for cancer? No 7.) Is patient experiencing any symptoms that would affect their ability to keep down pills, for example nausea or vomiting? No 8.) Verified that patient understands prescription delivery, benefit investigation and refill process. Yes Filling at [facility] pharmacy DRUG-SPECIFIC EDUCATION: 1.) Verified patient knows the drug name. Yes 2.) Verified patient understands the dose and schedule of oral anti cancer agent. Yes 3.) Verified patient knows what to do if a medication dose is missed. Yes 4.) Verified patient understands where to store the drug. Yes 5.) Verified patient understands potential side effects and how to manage them. Yes 6.)Verified patient understands handling precautions of oral anti cancer agent. Yes 7.) Verified patient was given written instructions and understands when and whom to call with questions. Yes 8.) Verified patient understands where and how to return drug. Yes 9.) Verified patient received drug specific adult education handout and neutropenic wallet card Yes EVALUATE: The patient and spouse demonstrated an understanding of all the above education using the teach-back method. Yes Instructed to call us with any questions, concerns, and/or unresolved symptoms. Will continue to follow up and provide reinforcement of teaching topics as needed. Janneth Fan RN [facility] 07-06-2024 History of Present illness Narrative ORAL ANTI-CANCER AGENTS EDUCATION patient and spouse here today for oral medication education of Xeloda (capecitabine) for Colon / Rectal Cancer Anticipated/Scheduled start date: tomorrow, 07/07/24 READINESS TO LEARN Cognitive Ability: Alert and oriented Motivation to Learn: Interested Family Support: High - Very involved in pt care Instruction Provided to: Patient and Spouse Patient learns best by: Multiple Methods Factors affecting learning: None Physical limitation affecting learning: None POMPA ASSESSMENT: 1.) Verified that patient knows that the oral agents are for cancer and are taken by mouth. Yes 2.) Medication review completed during visit. Yes 3.) Patient is able to swallow pills. Yes 4.) Patient is able to read the drug label/information. Yes 5.) Patient is able to open the medication bottles and packages. Yes 6.) Has patient taken other pills for cancer? No 7.) Is patient experiencing any symptoms that would affect their ability to keep down pills, for example nausea or vomiting? No 8.) Verified that patient understands prescription delivery, benefit investigation and refill process. Yes Filling at [facility] pharmacy DRUG-SPECIFIC EDUCATION: 1.) Verified patient knows the drug name. Yes 2.) Verified patient understands the dose and schedule of oral anti cancer agent. Yes 3.) Verified patient knows what to do if a medication dose is missed. Yes 4.) Verified patient understands where to store the drug. Yes 5.) Verified patient understands potential side effects and how to manage them. Yes 6.)Verified patient understands handling precautions of oral anti cancer agent. Yes 7.) Verified patient was given written instructions and understands when and whom to call with questions. Yes 8.) Verified patient understands where and how to return drug. Yes 9.) Verified patient received drug specific adult education handout and neutropenic wallet card Yes EVALUATE: The patient and spouse demonstrated an understanding of all the above education using the teach-back method. Yes Instructed to call us with any questions, concerns, and/or unresolved symptoms. Will continue to follow up and provide reinforcement of teaching topics as needed. Janneth Fan RN documented in this encounter [facility] 07-06-2024 Instructions Melecio Vazquez MD - 07/06/2024 1:45 PM EDT Ordered labs F/u in 3 weeks Ordered bone scan documented in this encounter [facility] 07-06-2024 History of Present illness Narrative PATIENT NAME: Rodrigue Wallace CLINIC NO.: [id number] ATTENDING PHYSICIAN: Melecio Vazquez MD DATE OF SERVICE: 07/06/[address] Jeramy Garrido [address] [facility] [address] [place] [phone] thank you for referring Rodrigue Wallace for an opinion regarding colon cacner. Some of the elements of this note have been copied from my previous progress note dated 06/15/24. All the information has been reviewed carefully. CHIEF COMPLAINT: colon cancer HPI: Rodrigue Wallace is a 74 year old year old female referred to us for recently diagnosed colon cancer. Sigmoidoscopy 05/20/24 - Malignant tumor in the sigmoid colon. Tattooed. - No specimens collected. Colonoscopy 04/21/24 - Dr. Sandy Cristobal - Likely malignant tumor in the proximal rectum, in the recto-sigmoid colon and in the distal sigmoid colon. Biopsied. - Moderate diverticulosis in the sigmoid colon. There was no evidence of diverticular bleeding. - Diverticulosis in the entire examined colon. - The examined portion of the ileum was normal. Pathology DISTAL SIGMOID COLON MASS, BIOPSY: FRAGMENTS OF INVASIVE ADENOCARCINOMA. MRI rectum 05/17/24 No rectal mass identified. Suspicion of mild wall thickening with minimally restricted diffusion in the sigmoid colon which may represent the tumor. Stage: T1/2 N0 MRF: Clear (tumor margin >2 mm from MRF) Sphincter involvement: No. Suspicious extra mesorectal lymph nodes: No. EMVI: No. CT chest 04/28/24 No intrathoracic lymphadenopathy. Multiple small nonspecific scattered bilateral pulmonary nodules (measuring up to 4 mm in size). Of note, 3 mm and 2 mm most inferiorly located nodules are stable compared with limited images through the lung bases on prior CT imaging of the abdomen and pelvis dated 03/05/2024 and 02/26/2024. Mild stable superior endplate deformity and mild chronic loss of height at L1. No thoracic vertebral body compression deformities. Scattered nonspecific tiny sclerotic foci within multiple bilateral ribs and 7 mm sclerotic lesion along the anterior inferior sternum as described. Suspect small nonspecific osseous lucent lesion within the ninth LEFT lateral rib. CT abdomen/pelvis 03/05/24 Falciform hypodensity focal increased fat, posterior diaphragmatic hernia containing stomach, colonic diverticulosis without diverticulitis s/p Laparoscopic Proctosigmoidectomy (Anterior Resection), Laparoscopic Mobilization of Splenic Flexure, Flexible Sigmoidoscopy with Dr. Garrido on 06/03/2024 for rectosigmoid colon cancer FINAL DIAGNOSIS Left colon and rectum, resection: - Invasive moderately differentiated adenocarcinoma (see synoptic report). - Metastatic adenocarcinoma involving one of twenty-two lymph nodes (10/13). - Submucosal lipoma. - Diverticulosis Clinical Pathologic Stage: pT2 pN1a Mx stage IIIA. MSI intact. Doing well currently. Eating and drinking good. No bowel or urinary complaints. Updated visit 07/06/24: - Doing well - No major complaints - Eating and drinking good. Current Outpatient Medications Medication Sig prochlorperazine (COMPAZINE) 10 mg tablet Take 1 tablet by mouth every 6 hours as needed. ondansetron (ZOFRAN) 8 mg tablet Take 1 tablet by mouth every 8 hours as needed for nausea/vomiting. capecitabine (XELODA) 500 mg tablet Take 3 tablets twice daily 2 weeks on, 1 week off. sertraline (ZOLOFT) 100 mg tablet Take 50 mg by mouth once daily. lisinopril (ZESTRIL) 20 mg tablet Take 20 mg by mouth once daily. fluticasone (FLONASE ALLERGY RELIEF) 50 mcg/actuation nasal spray Use 1 Mobile in each nostril as directed. iv contrast (will be provided with radiology test) MRI Rectum Inject, intravenously, once for 1 dose. No IV access, insert saline lock prior to the beginning of sedation, infusion, injection of imaging exam. Discontinue saline lock post exam. If Pt has a central line or IVAD, may access for administration according to line specific nursing protocol. Once exam is complete flush line and de-access according to line specific nursing protocol in the MR contrast administration guidelines link. enteric contrast (will be provided with radiology test) MRI RECTUM WO/W. Administer, As Directed One Time Only, via Oral, Rectal, both Oral and Rectal, Enteric Tube, Stoma or Indwelling Catheter, Enteric Contrast as designated per enteric contrast guidelines rosuvastatin (CRESTOR) 5 mg tablet Take 5 mg by mouth once daily. amLODIPine (NORVASC) 10 mg tablet Take 10 mg by mouth once daily. NOVOLOG U-100 INSULIN ASPART 100 unit/mL Use via insulin pump, 30 units daily cholecalciferol (VITAMIN D3) 1,000 unit tab Take 2 tablets by mouth once daily. esomeprazole (NEXIUM) 40 mg capsule Take 1 capsule by mouth once daily. (Patient not taking: Reported on 07/06/2024) celecoxib (CELEBREX) 200 mg capsule Take 200 mg by mouth once daily. famotidine (PEPCID) 20 mg tablet Take 20 mg by mouth two times a day as needed. No current facility-administered medications for this visit. ALLERGIES Allergen Reactions Fosamax [Alendronat* Other: See Comments Leg cramps, severe Macrodantin [Nitrof* Vomiting Penicillins Itching PAST MEDICAL HISTORY Diagnosis Date Arthritis Diverticulitis Former smoker GERD (gastroesophageal reflux disease) HTN (hypertension) Hypercholesteremia IDDM (insulin dependent diabetes mellitus) Low blood potassium Low iron Low salt syndrome Mental disorder Snoring PAST SURGICAL HISTORY Procedure Laterality Date ANTERIOR DISCECTOMY ARTHROSCOPY KNEE DIAGNOSTIC W/WO SYNOVIAL BX SPX Right 04/11/2010 Arthroscopy, knee BREAST AUGMENTATION WITH IMPLANT 1976 bilateral silicone implants COLONOSCOPY 06/30/2017 Susu- diverticulosis, repeat in 5 years EGD 10/16/2015 PAST SURGICAL HISTORY OF 03/22/2010 pulled abscess tooth: cipro for 10 days. PAST SURGICAL HISTORY OF right shoulder surgery PAST SURGICAL HISTORY OF Left 11/02/2015 arthroplasty base L thumb. PAST SURGICAL HISTORY OF all teeth removed for dentures TOTAL ABDOMINAL HYSTERECT W/WO RMVL TUBE OVARY 1990 RAUL-BSO FAMILY HISTORY Problem Relation Age of Onset other (Other [Other]) Unknown No known family history of breast cancer Thyroid Daughter Thyroid Sister Thyroid Maternal Aunt Diabetes Mother Type 2 DM, age 96 Emphysema Father age 76 Colon Cancer Sister Heart Sister Cancer Brother lung cancer Coronary Artery Disease Brother other (prediabetic [Other]) Brother Social History Tobacco Use Smoking status: Former Current packs/day: 0.00 Average packs/day: 1 pack/day for 30.0 years (30.0 ttl pk-yrs) Types: Cigarettes Start date: 09/22/1972 Quit date: 09/22/2002 Years since quittin.8 Smokeless tobacco: Never Vaping Use Vaping status: Never Used Substance Use Topics Alcohol use: Not Currently Drug use: No REVIEW OF SYSTEMS GENERAL: No weight loss, malaise or fevers. No night sweats. HEENT: Negative for headaches, No changes in hearing or vision, no nose bleeds or other nasal problems. RESPIRATORY: Negative for cough, wheezing and shortness of breath CARDIOVASCULAR: Negative for chest pain, leg swelling and palpitations GI: Negative for abdominal discomfort, blood in stools or black stools and change in bowel habits : Negative for dysuria, frequency and incontinence MUSCULOSKELETAL: Negative for joint pain or swelling, back pain, and muscle pain. SKIN: Negative for lesions, rash, and itching. HEMATOLOGY/LYMPHOLOGY Negative for prolonged bleeding, bruising easily, and swollen nodes. NEURO: Negative for numbness or tingling of hands/feet. No weakness. PHYSICAL EXAMINATION: BP 155/80 Pulse 74 Temp 36.2 C (97.1 F) (Temporal) Resp 16 Ht 160 cm (5' 2.99 ) Wt 65.1 kg (143 lb 8.3 oz) SpO2 95% BMI 25.43 kg/m There were no vitals taken for this visit. Last 3 Encounter Wt Readings: Date: Wt: 06/02/2024 63.5 kg (140 lb) 04/27/2024 63.5 kg (140 lb) 04/21/2024 63.5 kg (140 lb) General appearance:ECOG PERFORMANCE STATUS: 1- Restricted in physically strenuous activity. Carries out light duty. Patient in NAD. Skin: Skin color, texture, turgor normal. No rashes or lesions. Eyes: Anicteric sclera. Pupils are equally round and reactive to light. Extraocular movements are intact. Breast: No palpable breast masses. No nipple change or discharge. Lymph Nodes: No cervical, supraclavicular, axillary or inguinal adenopathy. Oropharynx: Lips, mucosa, and tongue normal. Back: No pain to percussion. Negative SLR test Lungs clear to auscultation, No wheezing or rhonchi Heart: RRR without murmur, gallop, or rubs. Abdomen soft, non-tender. No masses, organomegaly Extremities: No deformities. No edema Neuro: Gait and speech normal. Reflexes normal and symmetric. Muscular strength intact. Sensation grossly intact. Rectal: Deferred : Deferred LABS: Glucose (mg/dL) Date Value 06/06/2024 163 06/07/2021 175 Potassium (mmol/L) Date Value 06/06/2024 3.5 06/07/2021 4.9 Sodium (mmol/L) Date Value 06/06/2024 136 06/07/2021 131 Chloride (mmol/L) Date Value 06/06/2024 96 06/07/2021 91 CO2 (mmol/L) Date Value 06/06/2024 33 06/07/2021 28 Creatinine (mg/dL) Date Value 06/06/2024 0.41 06/07/2021 0.54 BUN (mg/dL) Date Value 06/06/2024 5 06/07/2021 7 Anion Gap (mmol/L) Date Value 06/06/2024 7 06/07/2021 12 Calcium (mg/dL) Date Value 06/07/2021 9.8 Calcium, Total (mg/dL) Date Value 06/06/2024 8.6 Protein, Total (g/dL) Date Value 06/02/2024 7.1 06/07/2021 7.4 Albumin (g/dL) Date Value 06/02/2024 4.2 06/07/2021 4.3 Bilirubin, Total (mg/dL) Date Value 06/02/2024 0.3 06/07/2021 0.3 Alkaline Phosphatase (U/L) Date Value 06/02/2024 95 06/07/2021 178 AST (U/L) Date Value 06/02/2024 22 06/07/2021 16 ALT (U/L) Date Value 06/02/2024 11 06/07/2021 <5 WBC Date Value Ref Range Status 06/06/2024 7.87 3.70 - 11.00 k/uL Final RBC Date Value Ref Range Status 06/06/2024 3.07 (L) 3.90 - 5.20 m/uL Final Hemoglobin Date Value Ref Range Status 06/06/2024 8.0 (L) 11.5 - 15.5 g/dL Final Hematocrit Date Value Ref Range Status 06/06/2024 25.2 (L) 36.0 - 46.0 % Final MCV Date Value Ref Range Status 06/06/2024 82.1 80.0 - 100.0 fL Final MCH Date Value Ref Range Status 06/06/2024 26.1 26.0 - 34.0 pg Final MCHC Date Value Ref Range Status 06/06/2024 31.7 30.5 - 36.0 g/dL Final RDW-CV Date Value Ref Range Status 06/06/2024 16.0 (H) 11.5 - 15.0 % Final Platelet Count Date Value Ref Range Status 06/06/2024 240 150 - 400 k/uL Final MPV Date Value Ref Range Status 06/06/2024 10.3 9.0 - 12.7 fL Final Abs Neut Date Value Ref Range Status 06/06/2024 5.36 1.45 - 7.50 k/uL Final Lymphocytes % Date Value Ref Range Status 06/06/2024 21.7 % Final Abs Lymph Date Value Ref Range Status 06/06/2024 1.71 1.00 - 4.00 k/uL Final Monocytes % Date Value Ref Range Status 06/06/2024 6.0 % Final Abs [place] Date Value Ref Range Status 06/06/2024 0.47 <0.87 k/uL Final Abs Eosin Date Value Ref Range Status 06/06/2024 0.27 <0.46 k/uL Final Basophils % Date Value Ref Range Status 06/06/2024 0.3 % Final Abs Baso Date Value Ref Range Status 06/06/2024 <0.03 <0.11 k/uL Final PATH: FINAL DIAGNOSIS Left colon and rectum, resection: - Invasive moderately differentiated adenocarcinoma (see synoptic report). - Metastatic adenocarcinoma involving one of twenty-two lymph nodes (10/13). - Submucosal lipoma. - Diverticulosis. Lymphatic and / or Vascular Invasion Present Perineural Invasion Not identified Tumor Budding Score Low (0-4) MARGINS Margin Status for Invasive Carcinoma All margins negative for invasive carcinoma REGIONAL LYMPH NODES Regional Lymph Node Status Tumor present in regional lymph node(s) Number of Lymph Nodes with Tumor 1 Number of Lymph Nodes Examined 22 Tumor Deposits Not identified Clinical Pathologic Stage: [id number] stage IIIA. MSI intact. IMAGING: CT Chest (04/28/24)- No intrathoracic lymphadenopathy. Multiple small nonspecific scattered bilateral pulmonary nodules (measuring up to 4 mm in size). Of note, 3 mm and 2 mm most inferiorly located nodules are stable compared with limited images through the lung bases on prior CT imaging of the abdomen and pelvis dated 03/05/2024 and 02/26/2024. Mild stable superior endplate deformity and mild chronic loss of height at L1. No thoracic vertebral body compression deformities. Scattered nonspecific tiny sclerotic foci within multiple bilateral ribs and 7 mm sclerotic lesion along the anterior inferior sternum as described. Suspect small nonspecific osseous lucent lesion within the ninth LEFT lateral rib ASSESSMENT AND PLAN: Rodrigue Wallace is a 74 year old year old female referred to us for colon cancer. Diabetes. s/p Laparoscopic Proctosigmoidectomy (Anterior Resection), Laparoscopic Mobilization of Splenic Flexure, Flexible Sigmoidoscopy with Dr. Garrido on 06/03/2024 for rectosigmoid colon cancer. Left colon and rectum, resection: - Invasive moderately differentiated adenocarcinoma (see synoptic report). - Metastatic adenocarcinoma involving one of twenty-two lymph nodes (10/13). - Submucosal lipoma. - Diverticulosis. Clinical Pathologic Stage: pT2 pN1a Mx. stage IIIA. MSI intact. - Explained to her in detail the adjuvant chemotherapy options for the stage III colon cancer. - Given she is greater than 70 years of age, we will do single agent Xeloda. - Will start Xeloda at 1000 mg/m , 1500 mg twice daily 2 weeks on 1 week off, for 6 months PLAN: - Advised her to start Xeloda from today - Side effects of Xeloda explained in detail including nausea, vomiting, marrow suppression, hand-foot syndrome etc. - Monitor the lung nodules for now. - Check CBC CMP CEA ferritin iron studies B12 folate - Signatera test is negative. - Ordered a bone scan for further evaluation of the sclerotic bone lesions - All her questions answered in detail. Follow-up in [address] Jeramy Garrido [id number] [facility] [id number] thank you for allowing me to participate in Rodrigue Wallace care, if there are any questions or concerns please do not hesitate to contact me at the number below. I spent a total of 30 minutes on the date of the service which included preparing to see the patient, [id number] patient care, completing clinical documentation, obtaining and/or reviewing separately obtained history, performing a medically appropriate examination, counseling and educating the patient/family/caregiver, ordering medications, tests, or procedures, communicating with other HCPs (not separately reported), independently interpreting results (not separately reported), communicating results to the patient/family/caregiver, and care coordination (not separately reported). Melecio Vazquez MD. Hematology/Medical Oncology [facility] [phone] CC: documented in this encounter [facility] 07-06-2024 Note HNO ID: [id number] Author: MELECIO VAZQUEZ MD Service: ? Author Type: Physician Type: Progress Notes Filed: 07/06/2024 14:32 Note Text: PATIENT NAME: Rodrigue Wallace [facility] NO.: [id number] ATTENDING PHYSICIAN: Melecio Vazquez MD DATE OF SERVICE: 07/06/[address] Jeramy Garrido [id number] [phone] thank you for referring Rodrigue Wallace for an opinion regarding colon cacner. Some of the elements of this note have been copied from my previous progress note dated 06/15/24. All the information has been reviewed carefully. CHIEF COMPLAINT: colon cancer HPI: Rodrigue Wallace is a 74 year old year old female referred to us for recently diagnosed colon cancer. Sigmoidoscopy 05/20/24 - Malignant tumor in the sigmoid colon. Tattooed. - No specimens collected. Colonoscopy 04/21/24 - Dr. Sandy Cristobal - Likely malignant tumor in the proximal rectum, in the recto-sigmoid colon and in the distal sigmoid colon. Biopsied. - Moderate diverticulosis in the sigmoid colon. There was no evidence of diverticular bleeding. - Diverticulosis in the entire examined colon. - The examined portion of the ileum was normal. Pathology DISTAL SIGMOID COLON MASS, BIOPSY: FRAGMENTS OF INVASIVE ADENOCARCINOMA. MRI rectum 05/17/24 No rectal mass identified. Suspicion of mild wall thickening with minimally restricted diffusion in the sigmoid colon which may represent the tumor. Stage: T1/2 N0 MRF: Clear (tumor margin >2 mm from MRF) Sphincter involvement: No. Suspicious extra mesorectal lymph nodes: No. EMVI: No. CT chest 04/28/24 No intrathoracic lymphadenopathy. Multiple small nonspecific scattered bilateral pulmonary nodules (measuring up to 4 mm in size). Of note, 3 mm and 2 mm most inferiorly located nodules are stable compared with limited images through the lung bases on prior CT imaging of the abdomen and pelvis dated 03/05/2024 and 02/26/2024. Mild stable superior endplate deformity and mild chronic loss of height at L1. No thoracic vertebral body compression deformities. Scattered nonspecific tiny sclerotic foci within multiple bilateral ribs and 7 mm sclerotic lesion along the anterior inferior sternum as described. Suspect small nonspecific osseous lucent lesion within the ninth LEFT lateral rib. CT abdomen/pelvis 03/05/24 Falciform hypodensity focal increased fat, posterior diaphragmatic hernia containing stomach, colonic diverticulosis without diverticulitis s/p Laparoscopic Proctosigmoidectomy (Anterior Resection), Laparoscopic Mobilization of Splenic Flexure, Flexible Sigmoidoscopy with Dr. Garrido on 06/03/2024 for rectosigmoid colon cancer FINAL DIAGNOSIS Left colon and rectum, resection: - Invasive moderately differentiated adenocarcinoma (see synoptic report). - Metastatic adenocarcinoma involving one of twenty-two lymph nodes (10/13). - Submucosal lipoma. - Diverticulosis Clinical Pathologic Stage: pT2 pN1a Mx stage IIIA. MSI intact. Doing well currently. Eating and drinking good. No bowel or urinary complaints. Updated visit 07/06/24: - Doing well - No major complaints - Eating and drinking good. Current Outpatient Medications Medication Sig prochlorperazine (COMPAZINE) 10 mg tablet Take 1 tablet by mouth every 6 hours as needed. ondansetron (ZOFRAN) 8 mg tablet Take 1 tablet by mouth every 8 hours as needed for nausea/vomiting. capecitabine (XELODA) 500 mg tablet Take 3 tablets twice daily 2 weeks on, 1 week off. sertraline (ZOLOFT) 100 mg tablet Take 50 mg by mouth once daily. lisinopril (ZESTRIL) 20 mg tablet Take 20 mg by mouth once daily. fluticasone (FLONASE ALLERGY RELIEF) 50 mcg/actuation nasal spray Use 1 Mobile in each nostril as directed. iv contrast (will be provided with radiology test) MRI Rectum Inject, intravenously, once for 1 dose. No IV access, insert saline lock prior to the beginning of sedation, infusion, injection of imaging exam. Discontinue saline lock post exam. If Pt has a central line or IVAD, may access for administration according to line specific nursing protocol. Once exam is complete flush line and de-access according to line specific nursing protocol in the MR contrast administration guidelines link. enteric contrast (will be provided with radiology test) MRI RECTUM WO/W. Administer, As Directed One Time Only, via Oral, Rectal, both Oral and Rectal, Enteric Tube, Stoma or Indwelling Catheter, Enteric Contrast as designated per enteric contrast guidelines rosuvastatin (CRESTOR) 5 mg tablet Take 5 mg by mouth once daily. amLODIPine (NORVASC) 10 mg tablet Take 10 mg by mouth once daily. NOVOLOG U-100 INSULIN ASPART 100 unit/mL Use via insulin pump, 30 units daily cholecalciferol (VITAMIN D3) 1,000 unit tab Take 2 tablets by mouth once daily. esomeprazole (NEXIUM) 40 mg capsule Take 1 capsule by mouth once daily. (Patient not taking: Reported on 07/06/2024) (more content not included)... [facility] 07-01-2024 Telephone encounter Note Call placed to pt to discuss Nexium with her. Pt states she's been taking this for a few years due to a large hiatal hernia she has. She states she gets good relief from it and is hesitant to stop it, but is agreeable if she has something else to try. Pt also states that if she has a nausea medication to take that this may help as well. Explained to pt that antiemetics will be prescribed for her, and that she can try tums or pepcid as well. Pt states she is willing to try one of these avenues, and would like to proceed with treatment. Please sign pending orders. Thanks Janneth Fan RN [facility] 07-01-2024 Miscellaneous Notes Call placed to pt to discuss Nexium with her. Pt states she's been taking this for a few years due to a large hiatal hernia she has. She states she gets good relief from it and is hesitant to stop it, but is agreeable if she has something else to try. Pt also states that if she has a nausea medication to take that this may help as well. Explained to pt that antiemetics will be prescribed for her, and that she can try tums or pepcid as well. Pt states she is willing to try one of these avenues, and would like to proceed with treatment. Please sign pending orders. Thanks Janneth Fan RN documented in this encounter [facility] 06-17-2024 Nurse Note What is the reason for your visit today? Post op Who is your referring physician? Are you having poor oral intake? NO Have you had unintentional weight loss of 15 lbs/7 Kg in the last 3-6 months? NO Bowels: regular Wound: clean & dry Temperature: No Drains: No [facility] 06-17-2024 Nurse Note What is the reason for your visit today? Post op Who is your referring physician? Are you having poor oral intake? NO Have you had unintentional weight loss of 15 lbs/7 Kg in the last 3-6 months? NO Bowels: regular Wound: clean & dry Temperature: No Drains: No documented in this encounter [facility] 06-17-2024 History of Present illness Narrative COLORECTAL SURGERY June 16, 2024 Rodrigue Wallace 74 year old This consult was requested by Dr. Garrido and my final recommendations will be communicated to the requesting health care provider by way of the shared medical record for internal providers or letter via the [employer] for external providers. Chief Complaint: post-op visit History of Present Illness: Rodrigue Wallace is a 74 year old female s/p a Laparoscopic Proctosigmoidectomy (Anterior Resection), Laparoscopic Mobilization of Splenic Flexure, Flexible Sigmoidoscopy on 06/03/[address] Garrido for rectosigmoid cancer. She presents today for her post-op visit with her . Overall she feels great. Minimal residual pain, no longer taking pain medication. She denies fevers and chills, she is eating and drinking without pain or bloating. Bowel movements are soft, brown, nonbloody, denies diarrhea and constipation. Her main concerns today and is the majority of her questions are regarding her recommended chemotherapy course. She and her have several questions regarding her type 1 diabetes, her kidney health, and how this is all related with her recommended chemotherapy regimen. She is unable to obtain a new insulin pump and they plan to hold off on chemotherapy until her diabetes is under better control. We discussed lifting and activity as well as diet recommendations in detail. Surgical Pathology FINAL DIAGNOSIS Left colon and rectum, resection: - Invasive moderately differentiated adenocarcinoma (see synoptic report). - Metastatic adenocarcinoma involving one of twenty-two lymph nodes (10/13). - Submucosal lipoma. - Diverticulosis. Component Ref Range & Units MMR Interpretation Proficient (Microsatellite Stable) MLH1 Immunohistochemical Results Normal/Intact Nuclear Expression PMS2 Immunohistochemical Results Normal/Intact Nuclear Expression MSH2 Immunohistochemical Results Normal/Intact Nuclear Expression MSH6 Immunohistochemical Results Normal/Intact Nuclear Expression MLH1 Promoter Methylation Assay No Tumor Type Primary Colorectal Adenocarcinoma [facility] Fixative Formalin, 10% Neutral Buffered PAST MEDICAL HISTORY Diagnosis Date Arthritis Diverticulitis Former smoker GERD (gastroesophageal reflux disease) HTN (hypertension) Hypercholesteremia IDDM (insulin dependent diabetes mellitus) Low blood potassium Low iron Low salt syndrome Mental disorder Snoring PAST SURGICAL HISTORY Procedure Laterality Date ANTERIOR DISCECTOMY ARTHROSCOPY KNEE DIAGNOSTIC W/WO SYNOVIAL BX SPX Right 04/11/2010 Arthroscopy, knee BREAST AUGMENTATION WITH IMPLANT 1976 bilateral silicone implants COLONOSCOPY 06/30/2017 Susu- diverticulosis, repeat in 5 years EGD 10/16/2015 PAST SURGICAL HISTORY OF 03/22/2010 pulled abscess tooth: cipro for 10 days. PAST SURGICAL HISTORY OF right shoulder surgery PAST SURGICAL HISTORY OF Left 11/02/2015 arthroplasty base L thumb. PAST SURGICAL HISTORY OF all teeth removed for dentures TOTAL ABDOMINAL HYSTERECT W/WO RMVL TUBE OVARY 1990 RAUL-BSO Current Outpatient Medications Medication Sig Dispense Refill capecitabine (XELODA) 500 mg tablet Take 3 tablets twice daily 2 weeks on, 1 week off. 84 tablet 1 acetaminophen (TYLENOL) 325 mg tablet Take 1 tablet by mouth every 6 hours as needed for pain. enoxaparin (LOVENOX) 40 mg/0.4 mL Inject 0.4 mL subcutaneously every 24 hours for 21 days. 8.4 mL 0 methocarbamol (ROBAXIN) 750 mg tablet Take 1 tablet by mouth every 8 hours as needed (muscle spasm). 15 tablet 0 lactobacillus rhamnosus (CULTURELLE) 10 billion cell capsule Take 1 capsule by mouth once daily. 30 capsule 0 polyethylene glycol 3350 (MIRALAX) 17 gram/dose powder Take 17 g by mouth once daily as needed for constipation. Dissolve dose in 4 - 8 ounces of liquid and take as directed. Psyllium Seed-Sucrose (METAMUCIL, SUGAR,) Take 1 Tablespoonful by mouth once daily as needed. Take as directed. sertraline (ZOLOFT) 100 mg tablet Take 100 mg by mouth once daily. lisinopril (ZESTRIL) 20 mg tablet Take 20 mg by mouth once daily. atorvastatin calcium (ATORVASTATIN ORAL) Take 5 mg by mouth once daily. ergocalciferol, vitamin D2, (VITAMIN D2 ORAL) Take by mouth once daily. fluticasone (FLONASE ALLERGY RELIEF) 50 mcg/actuation nasal spray Use 1 Mobile in each nostril as directed. Nut.Tx.Gluc.Intol,Lac-Free,Soy (GLUCERNA) liqd Take 8 oz by mouth once daily. iv contrast (will be provided with radiology test) MRI Rectum Inject, intravenously, once for 1 dose. No IV access, insert saline lock prior to the beginning of sedation, infusion, injection of imaging exam. Discontinue saline lock post exam. If Pt has a central line or IVAD, may access for administration according to line specific nursing protocol. Once exam is complete flush line and de-access according to line specific nursing protocol in the MR contrast administration guidelines link. 1 Each 0 enteric contrast (will be provided with radiology test) MRI RECTUM WO/W. Administer, As Directed One Time Only, via Oral, Rectal, both Oral and Rectal, Enteric Tube, Stoma or Indwelling Catheter, Enteric Contrast as designated per enteric contrast guidelines 1 Each 0 lactose-reduced food (ENSURE CLEAR ORAL) Take by mouth once daily. ferrous sulfate 325 mg (65 mg iron) tablet Take 1 tablet by mouth. rosuvastatin (CRESTOR) 5 mg tablet coenzyme Q10 30 mg capsule Take 30 mg by mouth. amLODIPine (NORVASC) 10 mg tablet NOVOLOG U-100 INSULIN ASPART 100 unit/mL Use via insulin pump, 30 units daily 6 Vial 3 cholecalciferol (VITAMIN D3) 1,000 unit tab Take 2 tablets by mouth once daily. 0 esomeprazole (NEXIUM) 40 mg capsule Take 1 capsule by mouth once daily. 90 capsule 3 mometasone (NASONEX) 50 mcg/actuation nasal spray Use 2 Sprays in the nose once daily. 0 Aspirin 81 mg ORAL Tab Take one(1) tablet daily. 0 0 No current facility-administered medications for this visit. ALLERGIES Allergen Reactions Fosamax [Alendronat* Other: See Comments Leg cramps, severe Macrodantin [Nitrof* Vomiting Penicillins Itching FAMILY HISTORY Problem Relation Age of Onset other (Other [Other]) Unknown No known family history of breast cancer Thyroid Daughter Thyroid Sister Thyroid Maternal Aunt Diabetes Mother Type 2 DM, age 96 Emphysema Father age 76 Colon Cancer Sister Heart Sister Cancer Brother lung cancer Coronary Artery Disease Brother other (prediabetic [Other]) Brother Social History Tobacco Use Smoking status: Former Current packs/day: 0.00 Average packs/day: 1 pack/day for 30.0 years (30.0 ttl pk-yrs) Types: Cigarettes Start date: 09/22/1972 Quit date: 09/22/2002 Years since quittin.7 Smokeless tobacco: Never Vaping Use Vaping status: Never Used Substance Use Topics Alcohol use: Not Currently Drug use: No Physical Exam: BP 127/61 (BP Site: Left Arm, BP Position: Sitting, BP Cuff Size: Regular Adult) Pulse 84 Temp 36.2 C (97.1 F) SpO2 96% General Appearance: Well appearing, alert, in no acute distress, well-hydrated, well nourished. Abdomen: Soft, nondistended, nontender. Incisions are healing well and glue is flaking off. Low abdominal incision with a small open area <1cm shallow with pink healthy tissue at the base. Dry gauze applied. Assessment Assessment and Plan: Rodrigue Wallace is a 74 year old female s/p a Laparoscopic Proctosigmoidectomy (Anterior Resection), Laparoscopic Mobilization of Splenic Flexure, Flexible Sigmoidoscopy on 06/03/2024. -doing well post-op, expected recovery course. -tumor board discussion regarding pathology results. Established with medical oncology. I will forward this note over to her medical oncologist with her questions and concerns to help facilitate another appointment. -OK to slowly advance diet as tolerated. -continue lifting and activity restrictions for 4-6 weeks post-op. -complete lovenox SQ injections as prescribed. -continue probiotics for 1 month post-op. -further follow up with Dr. Garrido in 3 months, scheduled for the patient today. Medical Decision Making: Data Reviewed: Tests & Documents Reviewed/ordered: Review of prior notes from hospitalization Review of prior operative reports Review of Pathology I have independently interpreted: n/a I have discussed Rodrigue Wallace's treatment plan and/or results with the patient, Dr. Garrido. Risk of morbidity, mortality and/or complications of treatment plan: efren Baum APRN.CNP Colorectal Surgery documented in this encounter [facility] 06-17-2024 Note HNO ID: [id number] Author: RAFAELA BAUM APRN.CNP Service: ? Author Type: Nurse Practitioner Type: Progress Notes Filed: 06/17/2024 17:06 Note Text: COLORECTAL SURGERY June 16, 2024 Rodrigue Wallace 74 year old This consult was requested by Dr. Garrido and my final recommendations will be communicated to the requesting health care provider by way of the shared medical record for internal providers or letter via the [employer] for external providers. Chief Complaint: post-op visit History of Present Illness: Rodrigue Wallace is a 74 year old female s/p a Laparoscopic Proctosigmoidectomy (Anterior Resection), Laparoscopic Mobilization of Splenic Flexure, Flexible Sigmoidoscopy on 06/03/[address] Garrido for rectosigmoid cancer. She presents today for her post-op visit with her . Overall she feels great. Minimal residual pain, no longer taking pain medication. She denies fevers and chills, she is eating and drinking without pain or bloating. Bowel movements are soft, brown, nonbloody, denies diarrhea and constipation. Her main concerns today andis the majority of her questions are regarding her recommended chemotherapy course. She and her have several questions regarding her type 1 diabetes, her kidney health, and how this is all related with her recommended chemotherapy regimen. She is unable to obtain a new insulin pump and they plan to hold off on chemotherapy until her diabetes is under better control. We discussed lifting and activity as well as diet recommendations in detail. Surgical Pathology FINAL DIAGNOSIS Left colon and rectum, resection: - Invasive moderately differentiated adenocarcinoma (see synoptic report). - Metastatic adenocarcinoma involving one of twenty-two lymph nodes (10/13). - Submucosal lipoma. - Diverticulosis. Component Ref Range AND Units MMR Interpretation Proficient (Microsatellite Stable) MLH1 Immunohistochemical Results Normal/Intact Nuclear Expression PMS2 Immunohistochemical Results Normal/Intact Nuclear Expression MSH2 Immunohistochemical Results Normal/Intact Nuclear Expression MSH6 Immunohistochemical Results Normal/Intact Nuclear Expression MLH1 Promoter Methylation Assay No Tumor Type Primary Colorectal Adenocarcinoma [facility] Fixative Formalin, 10% Neutral Buffered PAST MEDICAL HISTORY Diagnosis Date Arthritis Diverticulitis Former smoker GERD (gastroesophageal reflux disease) HTN (hypertension) Hypercholesteremia IDDM (insulin dependent diabetes mellitus) Low blood potassium Low iron Low salt syndrome Mental disorder Snoring PAST SURGICAL HISTORY Procedure Laterality Date ANTERIOR DISCECTOMY ARTHROSCOPY KNEE DIAGNOSTIC W/WO SYNOVIAL BX SPX Right 04/11/2010 Arthroscopy, knee BREAST AUGMENTATION WITH IMPLANT 1976 bilateral silicone implants COLONOSCOPY 06/30/2017 Susu- diverticulosis, repeat in 5 years EGD 10/16/2015 PAST SURGICAL HISTORY OF 03/22/2010 pulled abscess tooth: cipro for 10 days. PAST SURGICAL HISTORY OF right shoulder surgery PAST SURGICAL HISTORY OF Left 11/02/2015 arthroplasty base L thumb. PAST SURGICAL HISTORY OF all teeth removed for dentures TOTAL ABDOMINAL HYSTERECT W/WO RMVL TUBE OVARY 1990 RAUL-BSO Current Outpatient Medications Medication Sig Dispense Refill capecitabine (XELODA) 500 mg tablet Take 3 tablets twice daily 2 weeks on, 1 week off. 84 tablet 1 acetaminophen (TYLENOL) 325 mg tablet Take 1 tablet by mouth every 6 hours as needed for pain. enoxaparin (LOVENOX) 40 mg/0.4 mL Inject 0.4 mL subcutaneously every 24 hours for 21 days. 8.4 mL 0 methocarbamol (ROBAXIN) 750 mg tablet Take 1 tablet by mouth every 8 hours as needed (muscle spasm). 15 tablet 0 lactobacillus rhamnosus (CULTURELLE) 10 billion cell capsule Take 1 capsule by mouth once daily. 30 capsule 0 polyethylene glycol 3350 (MIRALAX) 17 gram/dose powder Take 17 g by mouth once daily as needed for constipation. Dissolve dose in 4 - 8 ounces of liquid and take as directed. Psyllium Seed-Sucrose (METAMUCIL, SUGAR,) Take 1 Tablespoonful by mouth once daily as needed. Take as directed. sertraline (ZOLOFT) 100 mg tablet Take 100 mg by mouth once daily. lisinopril (ZESTRIL) 20 mg tablet Take 20 mg by mouth once daily. atorvastatin calcium (ATORVASTATIN ORAL) Take 5 mg by mouth once daily. ergocalciferol, vitamin D2, (VITAMIN D2 ORAL) Take by mouth once daily. fluticasone (FLONASE ALLERGY RELIEF) 50 mcg/actuation nasal spray Use 1 Mobile in each nostril as directed. Nut.Tx.Gluc.Intol,Lac-Free,Soy (GLUCERNA) liqd Take 8 oz by mouth once daily. iv contrast (will be provided with radiology test) MRI Rectum Inject, intravenously, once for 1 dose. No IV access, insert saline lock prior to the beginning of sedation, infusion, injection of imaging exam. Discontinue saline lock post exam. (more content not included)... [facility] 06-15-2024 Telephone encounter Note Thanks Mary. Discussed with Dr Vazquez who states pt just had surgery 2 weeks ago and is still having some discomfort and healing, so he would like to see her in follow up in 3 weeks first before starting Xeloda. Will do education at that visit. Janneth Fan RN [facility] Work Phone: 06-15-2024 Miscellaneous Notes Thanks Mary. Discussed with Dr Vazquez who states pt just had surgery 2 weeks ago and is still having some discomfort and healing, so he would like to see her in follow up in 3 weeks first before starting Xeloda. Will do education at that visit. Janneth Fan RN I have the Patient scheduled for her Chemo Education at 2 pm after her appointment to see Dr. Rivera on 07/06/24. I called and let her know as well and was happy with it. JESUS MANUEL Grajeda PSS: can you please schedule pt for chemo ed. I'll discuss Nexium with her then. Thanks Janneth Fan RN Ambulatory Pharmacy Prior Authorization Note Provider Intervention Required?: No- Pharmacy completed on your behalf. Rx Plan: Other: Medicare Part A and B - submitted e-mail to Pharmacy Billing team to enter [employer] TKOs Drug: Capecitabine Cover My Meds [place]: N/A Additional Information: Waiting for Pharmacy Billing team to enter [employer] into system for billing: patient should have no co-pay. Patient will need Education scheduled. Will also need to address if patient is still taking Nexium. D/D Interaction with Capecitabine For questions relating to this submission, please contact [facility] at [phone] documented in this encounter [facility] 06-15-2024 Telephone encounter Note I have the Patient scheduled for her Chemo Education at 2 pm after her appointment to see Dr. Rivera on 07/06/24. I called and let her know as well and was happy with it. JESUS MANUEL Grajeda [facility] 06-15-2024 Telephone encounter Note PSS: can you please schedule pt for chemo ed. I'll discuss Nexium with her then. Thanks Janneth Fan, RN [facility] 06-15-2024 Telephone encounter Note Ambulatory Pharmacy Prior Authorization Note Provider Intervention Required?: No- Pharmacy completed on your behalf. Rx Plan: Other: Medicare Part A and B - submitted e-mail to Pharmacy Billing team to enter Omnisys Drug: Capecitabine Cover My Meds [place]: N/A Additional Information: Waiting for Pharmacy Billing team to enter Omnisys into system for billing: patient should have no co-pay. Patient will need Education scheduled. Will also need to address if patient is still taking Nexium. D/D Interaction with Capecitabine For questions relating to this submission, please contact [facility] at [phone] [facility] Work Phone: 06-15-2024 Instructions Melecio Vazquez MD - 06/15/2024 11:04 AM EDT Ordered labs Will order xeloda F/u in 3 weeks. documented in this encounter [facility] 06-15-2024 History of Present illness Narrative PATIENT NAME: Rodrigue Wallace [facility] NO.: [id number] ATTENDING PHYSICIAN: Melecio Vazquez MD DATE OF SERVICE: June 15, [address] Jeramy Garrido [address] [address] thank you for referring Rodrigue Wallace for an opinion regarding colon cacner. CHIEF COMPLAINT: colon cancer HPI: Rodrigue Wallace is a 74 year old year old female referred to us for recently diagnosed colon cancer. Sigmoidoscopy 05/20/24 - Malignant tumor in the sigmoid colon. Tattooed. - No specimens collected. Colonoscopy 04/21/24 - Dr. Sandy Cristobal - Likely malignant tumor in the proximal rectum, in the recto-sigmoid colon and in the distal sigmoid colon. Biopsied. - Moderate diverticulosis in the sigmoid colon. There was no evidence of diverticular bleeding. - Diverticulosis in the entire examined colon. - The examined portion of the ileum was normal. Pathology DISTAL SIGMOID COLON MASS, BIOPSY: FRAGMENTS OF INVASIVE ADENOCARCINOMA. MRI rectum 05/17/24 No rectal mass identified. Suspicion of mild wall thickening with minimally restricted diffusion in the sigmoid colon which may represent the tumor. Stage: T1/2 N0 MRF: Clear (tumor margin >2 mm from MRF) Sphincter involvement: No. Suspicious extra mesorectal lymph nodes: No. EMVI: No. CT chest 04/28/24 No intrathoracic lymphadenopathy. Multiple small nonspecific scattered bilateral pulmonary nodules (measuring up to 4 mm in size). Of note, 3 mm and 2 mm most inferiorly located nodules are stable compared with limited images through the lung bases on prior CT imaging of the abdomen and pelvis dated 03/05/2024 and 02/26/2024. Mild stable superior endplate deformity and mild chronic loss of height at L1. No thoracic vertebral body compression deformities. Scattered nonspecific tiny sclerotic foci within multiple bilateral ribs and 7 mm sclerotic lesion along the anterior inferior sternum as described. Suspect small nonspecific osseous lucent lesion within the ninth LEFT lateral rib. CT abdomen/pelvis 03/05/24 Falciform hypodensity focal increased fat, posterior diaphragmatic hernia containing stomach, colonic diverticulosis without diverticulitis s/p Laparoscopic Proctosigmoidectomy (Anterior Resection), Laparoscopic Mobilization of Splenic Flexure, Flexible Sigmoidoscopy with Dr. Garrido on 06/03/2024 for rectosigmoid colon cancer FINAL DIAGNOSIS Left colon and rectum, resection: - Invasive moderately differentiated adenocarcinoma (see synoptic report). - Metastatic adenocarcinoma involving one of twenty-two lymph nodes (10/13). - Submucosal lipoma. - Diverticulosis Clinical Pathologic Stage: pT2 pN1a Mx stage IIIA. MSI intact. Doing well currently. Eating and drinking good. No bowel or urinary complaints. Current Outpatient Medications Medication Sig acetaminophen (TYLENOL) 325 mg tablet Take 1 tablet by mouth every 6 hours as needed for pain. enoxaparin (LOVENOX) 40 mg/0.4 mL Inject 0.4 mL subcutaneously every 24 hours for 21 days. methocarbamol (ROBAXIN) 750 mg tablet Take 1 tablet by mouth every 8 hours as needed (muscle spasm). lactobacillus rhamnosus (CULTURELLE) 10 billion cell capsule Take 1 capsule by mouth once daily. polyethylene glycol 3350 (MIRALAX) 17 gram/dose powder Take 17 g by mouth once daily as needed for constipation. Dissolve dose in 4 - 8 ounces of liquid and take as directed. Psyllium Seed-Sucrose (METAMUCIL, SUGAR,) Take 1 Tablespoonful by mouth once daily as needed. Take as directed. sertraline (ZOLOFT) 100 mg tablet Take 100 mg by mouth once daily. lisinopril (ZESTRIL) 20 mg tablet Take 20 mg by mouth once daily. atorvastatin calcium (ATORVASTATIN ORAL) Take 5 mg by mouth once daily. ergocalciferol, vitamin D2, (VITAMIN D2 ORAL) Take by mouth once daily. fluticasone (FLONASE ALLERGY RELIEF) 50 mcg/actuation nasal spray Use 1 Mobile in each nostril as directed. Nut.Tx.Gluc.Intol,Lac-Free,Soy (GLUCERNA) liqd Take 8 oz by mouth once daily. iv contrast (will be provided with radiology test) MRI Rectum Inject, intravenously, once for 1 dose. No IV access, insert saline lock prior to the beginning of sedation, infusion, injection of imaging exam. Discontinue saline lock post exam. If Pt has a central line or IVAD, may access for administration according to line specific nursing protocol. Once exam is complete flush line and de-access according to line specific nursing protocol in the MR contrast administration guidelines link. enteric contrast (will be provided with radiology test) MRI RECTUM WO/W. Administer, As Directed One Time Only, via Oral, Rectal, both Oral and Rectal, Enteric Tube, Stoma or Indwelling Catheter, Enteric Contrast as designated per enteric contrast guidelines lactose-reduced food (ENSURE CLEAR ORAL) Take by mouth once daily. ferrous sulfate 325 mg (65 mg iron) tablet Take 1 tablet by mouth. rosuvastatin (CRESTOR) 5 mg tablet coenzyme Q10 30 mg capsule Take 30 mg by mouth. amLODIPine (NORVASC) 10 mg tablet NOVOLOG U-100 INSULIN ASPART 100 unit/mL Use via insulin pump, 30 units daily cholecalciferol (VITAMIN D3) 1,000 unit tab Take 2 tablets by mouth once daily. esomeprazole (NEXIUM) 40 mg capsule Take 1 capsule by mouth once daily. mometasone (NASONEX) 50 mcg/actuation nasal spray Use 2 Sprays in the nose once daily. Aspirin 81 mg ORAL Tab Take one(1) tablet daily. No current facility-administered medications for this visit. ALLERGIES Allergen Reactions Fosamax [Alendronat* Other: See Comments Leg cramps, severe Macrodantin [Nitrof* Vomiting Penicillins Itching PAST MEDICAL HISTORY Diagnosis Date Arthritis Diverticulitis Former smoker GERD (gastroesophageal reflux disease) HTN (hypertension) Hypercholesteremia IDDM (insulin dependent diabetes mellitus) Low blood potassium Low iron Low salt syndrome Mental disorder Snoring PAST SURGICAL HISTORY Procedure Laterality Date ANTERIOR DISCECTOMY ARTHROSCOPY KNEE DIAGNOSTIC W/WO SYNOVIAL BX SPX Right 04/11/2010 Arthroscopy, knee BREAST AUGMENTATION WITH IMPLANT 1976 bilateral silicone implants COLONOSCOPY 06/30/2017 Susu- diverticulosis, repeat in 5 years EGD 10/16/2015 PAST SURGICAL HISTORY OF 03/22/2010 pulled abscess tooth: cipro for 10 days. PAST SURGICAL HISTORY OF right shoulder surgery PAST SURGICAL HISTORY OF Left 11/02/2015 arthroplasty base L thumb. PAST SURGICAL HISTORY OF all teeth removed for dentures TOTAL ABDOMINAL HYSTERECT W/WO RMVL TUBE OVARY 1990 RAUL-BSO FAMILY HISTORY Problem Relation Age of Onset other (Other [Other]) Unknown No known family history of breast cancer Thyroid Daughter Thyroid Sister Thyroid Maternal Aunt Diabetes Mother Type 2 DM, age 96 Emphysema Father age 76 Colon Cancer Sister Heart Sister Cancer Brother lung cancer Coronary Artery Disease Brother other (prediabetic [Other]) Brother Social History Tobacco Use Smoking status: Former Current packs/day: 0.00 Average packs/day: 1 pack/day for 30.0 years (30.0 ttl pk-yrs) Types: Cigarettes Start date: 09/22/1972 Quit date: 09/22/2002 Years since quittin.7 Smokeless tobacco: Never Vaping Use Vaping status: Never Used Substance Use Topics Alcohol use: Not Currently Drug use: No REVIEW OF SYSTEMS GENERAL: No weight loss, malaise or fevers. No night sweats. HEENT: Negative for headaches, No changes in hearing or vision, no nose bleeds or other nasal problems. RESPIRATORY: Negative for cough, wheezing and shortness of breath CARDIOVASCULAR: Negative for chest pain, leg swelling and palpitations GI: Negative for abdominal discomfort, blood in stools or black stools and change in bowel habits : Negative for dysuria, frequency and incontinence MUSCULOSKELETAL: Negative for joint pain or swelling, back pain, and muscle pain. SKIN: Negative for lesions, rash, and itching. HEMATOLOGY/LYMPHOLOGY Negative for prolonged bleeding, bruising easily, and swollen nodes. NEURO: Negative for numbness or tingling of hands/feet. No weakness. PHYSICAL EXAMINATION: BP 147/85 Pulse 88 Temp 36.2 C (97.1 F) (Temporal) Resp 16 Ht 160 cm (5' 2.99 ) Wt 65.4 kg (144 lb 2.9 oz) SpO2 95% BMI 25.55 kg/m There were no vitals taken for this visit. Last 3 Encounter Wt Readings: Date: Wt: 06/02/2024 63.5 kg (140 lb) 04/27/2024 63.5 kg (140 lb) 04/21/2024 63.5 kg (140 lb) General appearance:ECOG PERFORMANCE STATUS: 1- Restricted in physically strenuous activity. Carries out light duty. Patient in NAD. Skin: Skin color, texture, turgor normal. No rashes or lesions. Eyes: Anicteric sclera. Pupils are equally round and reactive to light. Extraocular movements are intact. Breast: No palpable breast masses. No nipple change or discharge. Lymph Nodes: No cervical, supraclavicular, axillary or inguinal adenopathy. Oropharynx: Lips, mucosa, and tongue normal. Back: No pain to percussion. Negative SLR test Lungs clear to auscultation, No wheezing or rhonchi Heart: RRR without murmur, gallop, or rubs. Abdomen soft, non-tender. No masses, organomegaly Extremities: No deformities. No edema Neuro: Gait and speech normal. Reflexes normal and symmetric. Muscular strength intact. Sensation grossly intact. Rectal: Deferred : Deferred LABS: Glucose (mg/dL) Date Value 06/06/2024 163 06/07/2021 175 Potassium (mmol/L) Date Value 06/06/2024 3.5 06/07/2021 4.9 Sodium (mmol/L) Date Value 06/06/2024 136 06/07/2021 131 Chloride (mmol/L) Date Value 06/06/2024 96 06/07/2021 91 CO2 (mmol/L) Date Value 06/06/2024 33 06/07/2021 28 Creatinine (mg/dL) Date Value 06/06/2024 0.41 06/07/2021 0.54 BUN (mg/dL) Date Value 06/06/2024 5 06/07/2021 7 Anion Gap (mmol/L) Date Value 06/06/2024 7 06/07/2021 12 Calcium (mg/dL) Date Value 06/07/2021 9.8 Calcium, Total (mg/dL) Date Value 06/06/2024 8.6 Protein, Total (g/dL) Date Value 06/02/2024 7.1 06/07/2021 7.4 Albumin (g/dL) Date Value 06/02/2024 4.2 06/07/2021 4.3 Bilirubin, Total (mg/dL) Date Value 06/02/2024 0.3 06/07/2021 0.3 Alkaline Phosphatase (U/L) Date Value 06/02/2024 95 06/07/2021 178 AST (U/L) Date Value 06/02/2024 22 06/07/2021 16 ALT (U/L) Date Value 06/02/2024 11 06/07/2021 <5 WBC Date Value Ref Range Status 06/06/2024 7.87 3.70 - 11.00 k/uL Final RBC Date Value Ref Range Status 06/06/2024 3.07 (L) 3.90 - 5.20 m/uL Final Hemoglobin Date Value Ref Range Status 06/06/2024 8.0 (L) 11.5 - 15.5 g/dL Final Hematocrit Date Value Ref Range Status 06/06/2024 25.2 (L) 36.0 - 46.0 % Final MCV Date Value Ref Range Status 06/06/2024 82.1 80.0 - 100.0 fL Final MCH Date Value Ref Range Status 06/06/2024 26.1 26.0 - 34.0 pg Final MCHC Date Value Ref Range Status 06/06/2024 31.7 30.5 - 36.0 g/dL Final RDW-CV Date Value Ref Range Status 06/06/2024 16.0 (H) 11.5 - 15.0 % Final Platelet Count Date Value Ref Range Status 06/06/2024 240 150 - 400 k/uL Final MPV Date Value Ref Range Status 06/06/2024 10.3 9.0 - 12.7 fL Final Abs Neut Date Value Ref Range Status 06/06/2024 5.36 1.45 - 7.50 k/uL Final Lymphocytes % Date Value Ref Range Status 06/06/2024 21.7 % Final Abs Lymph Date Value Ref Range Status 06/06/2024 1.71 1.00 - 4.00 k/uL Final Monocytes % Date Value Ref Range Status 06/06/2024 6.0 % Final Abs [place] Date Value Ref Range Status 06/06/2024 0.47 <0.87 k/uL Final Abs Eosin Date Value Ref Range Status 06/06/2024 0.27 <0.46 k/uL Final Basophils % Date Value Ref Range Status 06/06/2024 0.3 % Final Abs Baso Date Value Ref Range Status 06/06/2024 <0.03 <0.11 k/uL Final PATH: FINAL DIAGNOSIS Left colon and rectum, resection: - Invasive moderately differentiated adenocarcinoma (see synoptic report). - Metastatic adenocarcinoma involving one of twenty-two lymph nodes (10/13). - Submucosal lipoma. - Diverticulosis. Lymphatic and / or Vascular Invasion Present Perineural Invasion Not identified Tumor Budding Score Low (0-4) MARGINS Margin Status for Invasive Carcinoma All margins negative for invasive carcinoma REGIONAL LYMPH NODES Regional Lymph Node Status Tumor present in regional lymph node(s) Number of Lymph Nodes with Tumor 1 Number of Lymph Nodes Examined 22 Tumor Deposits Not identified Clinical Pathologic Stage: [id number] stage IIIA. MSI intact. IMAGING: CT Chest (04/28/24)- No intrathoracic lymphadenopathy. Multiple small nonspecific scattered bilateral pulmonary nodules (measuring up to 4 mm in size). Of note, 3 mm and 2 mm most inferiorly located nodules are stable compared with limited images through the lung bases on prior CT imaging of the abdomen and pelvis dated 03/05/2024 and 02/26/2024. Mild stable superior endplate deformity and mild chronic loss of height at L1. No thoracic vertebral body compression deformities. Scattered nonspecific tiny sclerotic foci within multiple bilateral ribs and 7 mm sclerotic lesion along the anterior inferior sternum as described. Suspect small nonspecific osseous lucent lesion within the ninth LEFT lateral rib ASSESSMENT AND PLAN: Rodrigue Wallace is a 74 year old year old female referred to us for colon cancer. s/p Laparoscopic Proctosigmoidectomy (Anterior Resection), Laparoscopic Mobilization of Splenic Flexure, Flexible Sigmoidoscopy with Dr. Garrido on 06/03/2024 for rectosigmoid colon cancer. Left colon and rectum, resection: - Invasive moderately differentiated adenocarcinoma (see synoptic report). - Metastatic adenocarcinoma involving one of twenty-two lymph nodes (10/13). - Submucosal lipoma. - Diverticulosis. Clinical Pathologic Stage: pT2 pN1a Mx. stage IIIA. MSI intact. DM. PLAN: - Explained to her in detail the adjuvant chemotherapy options for the stage III colon cancer. - Given she is greater than 71 years of age, we will do single agent Xeloda. - Will start Xeloda at 1000 mg/m , 1500 mg twice daily 2 weeks on 1 week off. - Side effects of Xeloda explained in detail including nausea, vomiting, marrow suppression, hand-foot syndrome etc. - Monitor the lung nodules for now - Check CBC CMP CEA ferritin iron studies B12 folate and Signatera - Will start Xeloda next month - All her questions answered in detail. Follow-up in [address] Jeramy Garrido [address] [facility] [address] thank you for allowing me to participate in Rodrigue Wallace care, if there are any questions or concerns please do not hesitate to contact me at the number below. I spent a total of 60 minutes on the date of the service which included preparing to see the patient, [id number] patient care, completing clinical documentation, obtaining and/or reviewing separately obtained history, performing a medically appropriate examination, counseling and educating the patient/family/caregiver, ordering medications, tests, or procedures, communicating with other HCPs (not separately reported), independently interpreting results (not separately reported), communicating results to the patient/family/caregiver, and care coordination (not separately reported). Melecio Vazquez MD. Hematology/Medical Oncology [place] [phone] CC: documented in this encounter [facility] 06-15-2024 Note HNO ID: [id number] Author: MELECIO VAZQUEZ MD Service: ? Author Type: Physician Type: Progress Notes Filed: 06/15/2024 11:37 Note Text: PATIENT NAME: Rodrigue Wallace [facility] NO.: [id number] ATTENDING PHYSICIAN: Melecio Vazquez MD DATE OF SERVICE: June 15, [address] Jeramy Garrido [address] [facility] [address] [place] [id number] thank you for referring Rodrigue Wallace for an opinion regarding colon cacner. CHIEF COMPLAINT: colon cancer HPI: Rodrigue Wallace is a 74 year old year old female referred to us for recently diagnosed colon cancer. Sigmoidoscopy 05/20/24 - Malignant tumor in the sigmoid colon. Tattooed. - No specimens collected. Colonoscopy 04/21/24 - Dr. Sandy Cristobal - Likely malignant tumor in the proximal rectum, in the recto-sigmoid colon and in the distal sigmoid colon. Biopsied. - Moderate diverticulosis in the sigmoid colon. There was no evidence of diverticular bleeding. - Diverticulosis in the entire examined colon. - The examined portion of the ileum was normal. Pathology DISTAL SIGMOID COLON MASS, BIOPSY: FRAGMENTS OF INVASIVE ADENOCARCINOMA. MRI rectum 05/17/24 No rectal mass identified. Suspicion of mild wall thickening with minimally restricted diffusion in the sigmoid colon which may represent the tumor. Stage: T1/2 N0 MRF: Clear (tumor margin >2 mm from MRF) Sphincter involvement: No. Suspicious extra mesorectal lymph nodes: No. EMVI: No. CT chest 04/28/24 No intrathoracic lymphadenopathy. Multiple small nonspecific scattered bilateral pulmonary nodules (measuring up to 4 mm in size). Of note, 3 mm and 2 mm most inferiorly located nodules are stable compared with limited images through the lung bases on prior CT imaging of the abdomen and pelvis dated 03/05/2024 and 02/26/2024. Mild stable superior endplate deformity and mild chronic loss of height at L1. No thoracic vertebral body compression deformities. Scattered nonspecific tiny sclerotic foci within multiple bilateral ribs and 7 mm sclerotic lesion along the anterior inferior sternum as described. Suspect small nonspecific osseous lucent lesion within the ninth LEFT lateral rib. CT abdomen/pelvis 03/05/24 Falciform hypodensity focal increased fat, posterior diaphragmatic hernia containing stomach, colonic diverticulosis without diverticulitis s/p Laparoscopic Proctosigmoidectomy (Anterior Resection), Laparoscopic Mobilization of Splenic Flexure, Flexible Sigmoidoscopy with Dr. Garrido on 06/03/2024 for rectosigmoid colon cancer FINAL DIAGNOSIS Left colon and rectum, resection: - Invasive moderately differentiated adenocarcinoma (see synoptic report). - Metastatic adenocarcinoma involving one of twenty-two lymph nodes (10/13). - Submucosal lipoma. - Diverticulosis Clinical Pathologic Stage: pT2 pN1a Mx stage IIIA. MSI intact. Doing well currently. Eating and drinking good. No bowel or urinary complaints. Current Outpatient Medications Medication Sig acetaminophen (TYLENOL) 325 mg tablet Take 1 tablet by mouth every 6 hours as needed for pain. enoxaparin (LOVENOX) 40 mg/0.4 mL Inject 0.4 mL subcutaneously every 24 hours for 21 days. methocarbamol (ROBAXIN) 750 mg tablet Take 1 tablet by mouth every 8 hours as needed (muscle spasm). lactobacillus rhamnosus (CULTURELLE) 10 billion cell capsule Take 1 capsule by mouth once daily. polyethylene glycol 3350 (MIRALAX) 17 gram/dose powder Take 17 g by mouth once daily as needed for constipation. Dissolve dose in 4 - 8 ounces of liquid and take as directed. Psyllium Seed-Sucrose (METAMUCIL, SUGAR,) Take 1 Tablespoonful by mouth once daily as needed. Take as directed. sertraline (ZOLOFT) 100 mg tablet Take 100 mg by mouth once daily. lisinopril (ZESTRIL) 20 mg tablet Take 20 mg by mouth once daily. atorvastatin calcium (ATORVASTATIN ORAL) Take 5 mg by mouth once daily. ergocalciferol, vitamin D2, (VITAMIN D2 ORAL) Take by mouth once daily. fluticasone (FLONASE ALLERGY RELIEF) 50 mcg/actuation nasal spray Use 1 Mobile in each nostril as directed. Nut.Tx.Gluc.Intol,Lac-Free,Soy (GLUCERNA) liqd Take 8 oz by mouth once daily. iv contrast (will be provided with radiology test) MRI Rectum Inject, intravenously, once for 1 dose. No IV access, insert saline lock prior to the beginning of sedation, infusion, injection of imaging exam. Discontinue saline lock post exam. If Pt has a central line or IVAD, may access for administration according to line specific nursing protocol. Once exam is complete flush line and de-access according to line specific nursing protocol in the MR contrast administration guidelines link. enteric contrast (will be provided with radiology test) MRI RECTUM WO/W. Administer, As Directed One Time Only, via Oral, Rectal, both Oral and Rectal, Enteric Tube, Stoma or Indwelling Catheter, Enteric Contrast as designated per enteric contrast guidelines lactose-reduced marek (more content not included)... [facility] 06-10-2024 Note HNO ID: [id number] Author: RAFAELA BAUM APRN.FLAG MAKER Service: ? Author Type: Nurse Practitioner Type: Progress Notes Filed: 06/10/2024 16:20 Note Text: [facility] Multidisciplinary GI Tumor Board Primary Disease: rectosigmoid colon cancer Oncologist: Dr. Vazquez History: 74 year old female s/p a Laparoscopic Proctosigmoidectomy (Anterior Resection), Laparoscopic Mobilization of Splenic Flexure, Flexible Sigmoidoscopy with Dr. Garrido on 06/03/2024 for rectosigmoid colon cancer. Imaging: CT chest 04/28/2024 IMPRESSION: No intrathoracic lymphadenopathy. Multiple small nonspecific scattered bilateral pulmonary nodules (measuring up to 4 mm in size). Of note, 3 mm and 2 mm most inferiorly located nodules are stable compared with limited images through the lung bases on prior CT imaging of the abdomen and pelvis dated 03/05/2024 and 02/26/2024. Mild stable superior endplate deformity and mild chronic loss of height at L1. No thoracic vertebral body compression deformities. Scattered nonspecific tiny sclerotic foci within multiple bilateral ribs and 7 mm sclerotic lesion along the anterior inferior sternum as described. Suspect small nonspecific osseous lucent lesion within the ninth LEFT lateral rib. CT abdomen/pelvis 03/05/24 Falciform hypodensity focal increased fat, posterior diaphragmatic hernia containing stomach, colonic diverticulosis without diverticulitis Surgical Pathologic Stage: FINAL DIAGNOSIS Left colon and rectum, resection: - Invasive moderately differentiated adenocarcinoma (see synoptic report). - Metastatic adenocarcinoma involving one of twenty-two lymph nodes (10/13). - Submucosal lipoma. - Diverticulosis. Lymphatic and / or Vascular Invasion Present Perineural Invasion Not identified Tumor Budding Score Low (0-4) MARGINS Margin Status for Invasive Carcinoma All margins negative for invasive carcinoma REGIONAL LYMPH NODES Regional Lymph Node Status Tumor present in regional lymph node(s) Number of Lymph Nodes with Tumor 1 Number of Lymph Nodes Examined 22 Tumor Deposits Not identified Clinical Pathologic Stage: [id number] stage IIIA Recommendations: referral to medical oncology for evaluation and consideration of adjuvant chemotherapy. Genetic counseling referral: no Eligibility for Clinic Trials: no Supportive Care Services (PT/OT/Palliative Medicine/Social Work/Pain Management): no Synoptic OP note completed: yes Attendees: Representatives were present from Medical Oncology, Colorectal Surgery, HPB Surgery, Surgical Oncology, Radiation Oncology, Radiology, Interventional radiology, Gastroenterology and Pathology. This is the summary of the general discussion provided at tumor board conference. The final recommendations will be made by the primary health care team and the patient after discussing the benefits, risks and alternatives to the various treatment options [facility] 06-09-2024 Note HNO ID: [id number] Author: IRMA PARRISH, Research Coordinator Service: ? Author Type: Research Type: Progress Notes Filed: 06/09/2024 23:28 Note Text: Summary: [facility] Research Pre-Screening ([id number]) Rodrigue Wallace was reviewed for potential clinical trial enrollment on [facility] #[id number] by the [facility]: [facility] on 06/09/24. Per initial review, patient has disease type Stage III Colon Cancer and appears to be preliminarily eligible and further testing/procedures required to determine final eligibility. Requesting alliance party notified. No Study tasks were completed as a result of this initial review. Irma Parrish, Research Coordinator [facility] 06-09-2024 History of Present illness Narrative Summary: [facility] Research Pre-Screening ([id number]) Rodrigue Wallace was reviewed for potential clinical trial enrollment on [facility] #[id number] by the [place]: [place] group on 06/09/24. Per initial review, patient has disease type Stage III Colon Cancer and appears to be preliminarily eligible and further testing/procedures required to determine final eligibility. Requesting alliance party notified. No Study tasks were completed as a result of this initial review. Irma Parrish, Research Coordinator documented in this encounter [facility] 06-09-2024 Note HNO ID: [id number] Author: FLAVIA BERNAL RN Service: ? Author Type: Registered Nurse Type: Progress Notes Filed: 06/09/2024 13:57 Note Text: Medical oncology referral [facility] 06-09-2024 History of Present illness Narrative Medical oncology referral documented in this encounter [facility] 06-06-2024 Note HNO ID: [id number] Author: SABINA MICHELE RDMS Service: Radiology Author Type: Technologist Type: Progress Notes Filed: 06/06/2024 09:58 Note Text: Radiology Service Progress Note PATIENT NAME: Rodrigue Wallace DATE OF SERVICE: June 06, 2024 TIME: 9:57 AM PATIENT IDENTITY VERIFICATION COMPLETED USING TWO (2) IDENTIFIERS: Name and Date of confirmed by patient verbally. FALL SCREENING: Has the patient had 2 falls in the last year or 1 fall with injury or currently using an Ambulatory Assistive Device (Walker, Cane, Wheelchair, Crutches, etc.)? Inpatient: Screened on floor PATIENT GENDER DATA: Female. status: : No status: NO. PATIENT RELEVANT IMPLANT DATA REVIEWED: Not Applicable PATIENT PRESENTS WITH AN IMPLANTABLE OR ATTACHED SENIOR CONSULTANT: No RADIOLOGY DEPARTMENT: Ultrasound PERIPHERAL IV DATA: Not applicable SIGNED BY: Sabina Michele RDMS June 06, 2024 9:57 AM [facility] 06-06-2024 Note HNO ID: [id number] Author: ETHEL CHOWDHURY MD Service: Colorectal Author Type: Resident Type: Progress Notes Filed: 06/06/2024 10:03 Note Text: COLORECTAL SURGERY PROGRESS NOTE Patient name: Rodrigue Wallace Date of : 1950 Admission date: 06/03/2024 ASSESSMENT AND PLAN: Rodrigue Wallace is a 74 year old female with PMHx of HTN, HLD, T1DM, GERD, diverticulitis, spinal stenosis, osteoporosis, and hiatal hernia who was recently found to have rectosigmoid adenocarcinoma on diagnostic colonoscopy performed 04/21/24 for iron deficiency anemia. She is now 3 Days Post-Op s/p laparoscopic hand-assisted left colectomy with colorectal anastomosis and flexible sigmoidoscopy on 06/03/24. She remains afebrile and hemodynamically stable. Anticipate possible discharge home today pending Endocrinology re-evaluation and updated recommendations on glycemic control. Will additionally obtain DVT US of left lower extremity given mild swelling noted on exam today. - Follow up 06/03 OR pathology - Obtain LLE DVT US - if positive, will start therapeutic Lovenox - Pain: Multimodal pain regimen - CV: VS monitoring; home amlodipine, rosuvastatin - Pulm: Minimize use of supplemental oxygen, encourage IS; home inhalers - FEN: GIS diet, HLIV, supplements, electrolyte repletion PRN - GI: PRN antiemetics, scheduled Protonix, d/c Entereg - Renal: Monitor UOP, trend BUN/Cr - Heme: No indication for transfusion, trend H/H - ID: No indication for antimicrobials - Endocrine: Accuchecks, insulin pump management per Endocrinology - appreciate recs - Psych: Home sertraline - MSK: PT/OT; Encourage ambulation, OOB - VTE Ppx: SCDs, start prophylactic Lovenox - will require on discharge - Disposition: RNF - anticipate possible discharge today pending Endocrinology recommendations Plan of care discussed with staff. Ethel Chowdhury MD General Surgery Resident, PGY-2 06/06/2024 9:57 AM Pager: [phone] SUBJECTIVE: - No acute events overnight - Afebrile, hemodynamically stable - Pain well controlled - Tolerating GIS diet without nausea or emesis - Passing flatus with BM x2 recorded OBJECTIVE: Physical Exam: BP 145/77 Pulse 60 Temp 36.9 ?C (98.4 ?F) (Oral) Resp 18 Ht 160 cm (5' 3 ) Wt 63.5 kg (140 lb) SpO2 95% BMI 24.80 kg/m? Body mass index is 24.8 kg/m?. General: Resting in bed. No acute distress. Heart: Regular rate and rhythm. Lungs: Unlabored respirations on room air. Symmetric chest rise. Abdomen: Soft, nondistended. Mild mao-incisional tenderness to palpation. No rebound, guarding, or rigidity. Pfannenstiel and laparoscopic incisions well approximated, clean, and dry. Extremities: Warm and well-perfused. No gross deformity. Intake and Output (past 24h): Intake/Output Summary (Last 24 hours) at 06/06/2024 0957 Last data filed at 06/06/2024 0745 Gross per 24 hour Intake 450 ml Output 4450 ml Net -4000 ml LDAs: Lines, Drains, and Airways Line Duration Peripheral 06/05/242050 [facility] Right Forearm 24 Gauge <1 day Recent Labs: Recent Labs 06/06/24 0346 06/05/24 1302 06/05/24 0647 06/04/24 0337 06/04/24 0336 WBC 7.87 11.10* 7.41 < > -- HB 8.0* 8.1* 7.9* < > -- HCT 25.2* 24.9* 24.3* < > -- PLT 240 230 228 < > -- NA 136 -- 134* -- 131* K 3.5* -- 3.8 -- 4.6 CHLOR 96* -- 98 -- 96* CO2 33* -- 31* -- 23 CREAT 0.41* -- 0.42* -- 0.76 BUN 5* -- 6* -- 11 GLUC 163* -- 106* -- 190* CA 8.6 -- 8.3* -- 8.2* < > = values in this interval not displayed. [facility] 06-06-2024 Note HNO ID: [id number] Author: SAMMIE MONTERO, RN Service: ? Author Type: Registered Nurse Type: Nursing Progress Note Filed: 06/06/2024 07:37 Note Text: Other: 0515: page SROC to make aware pt potassium came back 3.5 this morning. 0520: new order in [facility] 06-05-2024 Note HNO ID: [id number] Author: JOSÉ MANUEL MARKS DO Service: Colorectal Author Type: Resident Type: Progress Notes Filed: 06/05/2024 09:25 Note Text: Attestation signed by Monie Castillo MD at 06/05/2024 9:48 AM I evaluated the patient and personally participated in the pompa components. I agree with the resident's findings and plan with the following revisions and/or additions: Hgb downtrending, appears clinically stable without bloody BMs. Likely from post-op acute blood loss anemia- will repeat hgb today. If stable, resume lovenox tomorrow. Iron infusion Signature: Monie Castillo MD Service Date: 06/05/2024 SURGICAL SERVICES POSTOP PROGRESS NOTE SERVICE DATE: June 05, 2024 SERVICE TIME: 9:21 AM Surgery: Laparoscopic Left Colectomy with Colorectal Anastomosis, Flexible Sigmoidoscopy Assessment/Plan: Rodrigue Wallace is a 74 year old female with history of sigmoid mass now s/p Laparoscopic Left Colectomy with Colorectal Anastomosis, Flexible Sigmoidoscopy on 06/03/24. Postoperatively has been recovering well with concerns over low urine output. - Pain: Multimodal pain regimen - CV: VS monitoring, telemetry; home Maxzide - Pulm: Minimize use of supplemental oxygen, encourage IS, duoneb TID to aid in improving respiratory status. - FEN: GIS, mIVFs, electrolyte repletion PRN - GI: PRN antiemetics - Renal: Monitor UOP, trend BUN/Cr - Heme: Repeat Hb today at 2 hours after iron infusion, iron infusion 500g - ID: IV Zosyn - MSK: Encourage ambulation, OOB - VTE Ppx: SCDs, hold lovenox for now - Disposition: JIN Marks DO, PhD PGY-6 General Surgery Resident Pager: [phone] Subjective INTERVAL HISTORY OF PRESENT ILLNESS: Having bowel movements, 1 concern for melena, drop in Hb 7.6 (9.5). Will recheck today following iron infusion. Pain moderately well controlled, large dose prior narcotic exposure with mild itching with oxycodone and fentanyl. Current Facility-Administered Medications Medication Dose Route Frequency amLODIPine 10 mg tab(s) (NORVASC) 10 mg ORAL DAILY rosuvastatin 5 mg tab(s) (CRESTOR) 5 mg ORAL AT BEDTIME pantoprazole DR 40 mg tab(s) (PROTONIX) 40 mg ORAL DAILY sertraline 100 mg tab(s) (ZOLOFT) 100 mg ORAL DAILY NaCl 0.9% iv flush bag 20 mL INTRAVENOUS PRN lactated ringers iv infusion 75 mL/hr INTRAVENOUS CONTINUOUS alvimopan 12 mg cap(s) (ENTEREG) 12 mg ORAL BID ondansetron (PF) 4 mg injection (ZOFRAN) 4 mg INTRAVENOUS q 6 H PRN acetaminophen 1,000 mg tab(s) (TYLENOL) 1,000 mg ORAL q 6 H lactobacillus rhamnosus 10 billion cell (CULTURELLE) capsule 1 capsule ORAL DAILY enoxaparin 40 mg injection (LOVENOX) 40 mg SUBCUTANEOUS DAILY naloxone 0.1 mg injection (NARCAN) 0.1 mg INTRAVENOUS q 2 MIN PRN dextrose 40 % 15 g 15 g ORAL PRN Or glucagon 1 mg injection 1 mg INTRAMUSCULAR PRN Or dextrose 10% iv bolus 12.5 g INTRAVENOUS PRN insulin lispro (ADMElog) 300 Units per 3mL vial for insulin pump (SELF ADMINISTERED) SUBCUTANEOUS CONTINUOUS fentaNYL IT NETWORK ARCHITECT 20 mcg/mL in NaCl 0.9% 100 mL (SUBLIMAZE) INTRAVENOUS CONTINUOUS iron dextran 25 mg in NaCl 0.9% 50 mL 25 mg INTRAVENOUS ONCE Followed by iron dextran 475 mg in NaCl 0.9% 250 mL 475 mg INTRAVENOUS ONCE ipratropium-albuterol 3 mL nebulizer solution (DUONEB) 3 mL INHALATION TID Objective BP 131/49 Pulse 79 Temp (Src) 98.1 (Oral) Resp 18 Ht 5' 3 (1.60m) Wt 140 lb (63.5kg) SpO2 99% BMI 24.81 kg/(m2). Physical Exam Performed GENERAL: Alert, no distress, cooperative LUNGS: on RA, lungs not auscultated CARDIAC: regular rate over last 24 hours ABDOMEN: abdomen soft and appropriately tender EXTREMITIES: Extremities normal, no deformities, edema, clubbing or skin discoloration. Good capillary refill. No ulcers WOUND: surgical incision covered with skin glue, well appearing DATA: Diagnostic tests reviewed for today's visit: WBC (k/uL) Date Value 06/05/2024 7.41 RBC (m/uL) Date Value 06/05/2024 2.93 (L) Hemoglobin (g/dL) Date Value 06/05/2024 7.9 (L) Hematocrit (%) Date Value 06/05/2024 24.3 (L) MCV (fL) Date Value 06/05/2024 82.9 MCH (pg) Date Value 06/05/2024 27.0 MCHC (g/dL) Date Value 06/05/2024 32.5 RDW-CV (%) Date Value 06/05/2024 15.8 (H) Platelet Count (k/uL) Date Value 06/05/2024 228 MPV (fL) Date Value 06/05/2024 9.8 Glucose (mg/dL) Date Value 06/05/2024 106 (H) BUN (mg/dL) Date Value 06/05/2024 6 (L) Creatinine (mg/dL) Date Value 06/05/2024 0.42 (L) Sodium (mmol/L) Date Value 06/05/2024 134 (L) Potassium (mmol/L) Date Value 06/05/2024 3.8 Chloride (mmol/L) Date Value 06/05/2024 98 CO2 (mmol/L) Date Value 06/05/2024 31 (H) Protein, Total (g/dL) Date Value 06/02/2024 7.1 Albumin (g/dL) Date Valu (more content not included)... [facility] 06-04-2024 Note HNO ID: [id number] Author: JOSÉ MANUEL MARKS DO Service: Colorectal Author Type: Resident Type: Progress Notes Filed: 06/04/2024 10:55 Note Text: SURGICAL SERVICES POSTOP PROGRESS NOTE SERVICE DATE: June 04, 2024 SERVICE TIME: 10:51 AM Surgery: Laparoscopic Left Colectomy with Colorectal Anastomosis, Flexible Sigmoidoscopy Assessment/Plan: Rodrigue Wallace is a 74 year old female with history of sigmoid mass now s/p Laparoscopic Left Colectomy with Colorectal Anastomosis, Flexible Sigmoidoscopy on 06/03/24. Postoperatively has been recovering well with concerns over low urine output. - Pain: Multimodal pain regimen - CV: VS monitoring, telemetry; home Maxzide - Pulm: Minimize use of supplemental oxygen, encourage IS - FEN: CLD, mIVFs, electrolyte repletion PRN - GI: PRN antiemetics - Renal: D/c siddiqui catheter, Monitor UOP, trend BUN/Cr - Heme: No indication for transfusion, trend H/H - ID: IV Zosyn - MSK: Encourage ambulation, OOB - VTE Ppx: SCDs, SQH - Disposition: JIN Marks DO, PhD PGY-6 General Surgery Resident Pager: [phone] Subjective INTERVAL HISTORY OF PRESENT ILLNESS: Low urine output overnight, received x2 bolus with only 250cc or urine, siddiqui interrogated without evidence of obstruction. Current Facility-Administered Medications Medication Dose Route Frequency amLODIPine 10 mg tab(s) (NORVASC) 10 mg ORAL DAILY rosuvastatin 5 mg tab(s) (CRESTOR) 5 mg ORAL AT BEDTIME pantoprazole DR 40 mg tab(s) (PROTONIX) 40 mg ORAL DAILY sertraline 100 mg tab(s) (ZOLOFT) 100 mg ORAL DAILY NaCl 0.9% iv flush bag 20 mL INTRAVENOUS PRN lactated ringers iv infusion 75 mL/hr INTRAVENOUS CONTINUOUS alvimopan 12 mg cap(s) (ENTEREG) 12 mg ORAL BID ondansetron (PF) 4 mg injection (ZOFRAN) 4 mg INTRAVENOUS q 6 H PRN acetaminophen 1,000 mg tab(s) (TYLENOL) 1,000 mg ORAL q 6 H lactobacillus rhamnosus 10 billion cell (CULTURELLE) capsule 1 capsule ORAL DAILY enoxaparin 40 mg injection (LOVENOX) 40 mg SUBCUTANEOUS DAILY naloxone 0.1 mg injection (NARCAN) 0.1 mg INTRAVENOUS q 2 MIN PRN dextrose 40 % 15 g 15 g ORAL PRN Or glucagon 1 mg injection 1 mg INTRAMUSCULAR PRN Or dextrose 10% iv bolus 12.5 g INTRAVENOUS PRN insulin lispro (ADMElog) 300 Units per 3mL vial for insulin pump (SELF ADMINISTERED) SUBCUTANEOUS CONTINUOUS fentaNYL IT NETWORK ARCHITECT 20 mcg/mL in NaCl 0.9% 100 mL (SUBLIMAZE) INTRAVENOUS CONTINUOUS Objective BP 123/87 Pulse 92 Temp (Src) 98.4 (Axillary) Resp 16 Ht 5' 3 (1.60m) Wt 140 lb (63.5kg) SpO2 97% BMI 24.81 kg/(m2). Physical Exam Performed GENERAL: Alert, no distress, cooperative LUNGS: on RA, lungs not auscultated CARDIAC: regular rate over last 24 hours ABDOMEN: abdomen soft and appropriately tender EXTREMITIES: Extremities normal, no deformities, edema, clubbing or skin discoloration. Good capillary refill. No ulcers WOUND: surgical incision covered with skin glue, well appearing DATA: Diagnostic tests reviewed for today's visit: WBC (k/uL) Date Value 06/04/2024 11.83 (H) RBC (m/uL) Date Value 06/04/2024 3.52 (L) Hemoglobin (g/dL) Date Value 06/04/2024 9.5 (L) Hematocrit (%) Date Value 06/04/2024 30.5 (L) MCV (fL) Date Value 06/04/2024 86.6 MCH (pg) Date Value 06/04/2024 27.0 MCHC (g/dL) Date Value 06/04/2024 31.1 RDW-CV (%) Date Value 06/04/2024 15.9 (H) Platelet Count (k/uL) Date Value 06/04/2024 285 MPV (fL) Date Value 06/04/2024 10.2 Glucose (mg/dL) Date Value 06/04/2024 190 (H) BUN (mg/dL) Date Value 06/04/2024 11 Creatinine (mg/dL) Date Value 06/04/2024 0.76 Sodium (mmol/L) Date Value 06/04/2024 131 (L) Potassium (mmol/L) Date Value 06/04/2024 4.6 Chloride (mmol/L) Date Value 06/04/2024 96 (L) CO2 (mmol/L) Date Value 06/04/2024 23 Protein, Total (g/dL) Date Value 06/02/2024 7.1 Albumin (g/dL) Date Value 06/02/2024 4.2 Calcium, Total (mg/dL) Date Value 06/04/2024 8.2 (L) Alkaline Phosphatase (U/L) Date Value 06/02/2024 95 Bilirubin, Total (mg/dL) Date Value 06/02/2024 0.3 AST (U/L) Date Value 06/02/2024 22 ALT (U/L) Date Value 06/02/2024 11 Rheumatoid Factor (IU/mL) Date Value 02/17/2014 <10 Hep C Antibody IA (no units) Date Value 08/10/2014 Negative URINALYSIS Specific [place], Ur Date Value Ref Range Status 08/10/2014 1.010 1.005 - 1.030 Final Glucose, Urine Date Value Ref Range Status 08/10/2014 150 (A) NEGAT mg/dL Final Bilirubin, Urine Date Value Ref Range Status 08/10/2014 Negative NEGAT Final Ketones, Urine Date Value Ref Range Status 08/10/2014 Negative NEGAT Final Hemoglobin/Blood,Ur Date Value Ref Range Status 08/10/2014 Negative NEGAT Final Protein, Urine Date Value Ref Range Status 08/10/2014 Negative NEGAT mg/dL Final WBC, Urine Date Value Ref Range Status 08/10/2014 0-5 R05 /HPF Final Anticoagulant AND Antiplatelet Medications (Fro (more content not included)... [facility] 06-03-2024 Note HNO ID: [id number] Author: SARAY SHANKS APRN.LIBRARY SUPERVISOR Service: Anesthesiology Author Type: Nurse Field Insurance Sales Manager Type: Anesthesia Procedure Notes Filed: 06/03/2024 13:02 Note Text: ANESTHESIOLOGY PROCEDURE NOTE PIV General Information Procedure Start Time/Medication Administration: 06/03/2024 11:45 AM Procedure End Time: 06/03/2024 11:46 AM Patient Location: OR Staffing LIBRARY SUPERVISOR: Saray Shanks APRN.LIBRARY SUPERVISOR Performed by: DARIAN Preparation Sterility Preparation: hand hygiene performed prior to procedure Site Prep: chlorhexidine Procedure Details Indication: need for IV access Needle Size/Type: 20 gauge angiocath Orientation: Left Location: Forearm Imaging Guidance Used: No SIGNATURE: Saray Shanks APRN.CRNA PATIENT NAME: Rodrigue Wallace DATE: June 03, 2024 TIME: 1:00 PM CSN: [id number] [facility] 06-03-2024 Note HNO ID: [id number] Author: SARAY SHANKS APRN.CRNA Service: Anesthesiology Author Type: Nurse Field Insurance Sales Manager Type: Anesthesia Procedure Notes Filed: 06/03/2024 12:52 Note Text: ANESTHESIOLOGY PROCEDURE NOTE Airway General Information Procedure Start Time/Medication Administration: 06/03/2024 11:46 AM Procedure End Time: 06/03/2024 11:48 AM Patient location during procedure: OR Patient identity confirmed: arm band Staffing LIBRARY SUPERVISOR: Saray Shanks APRN.LIBRARY SUPERVISOR Performed by: DARIAN Indications and Patient Condition Indications for airway management: anesthesia Preoxygenated: yes anesthesia circuit Method: sleep Difficult Mask: No Final Airway Details Final airway type: endotracheal airway Final Endotracheal Airway: ETT Cuffed: yes Successful intubation technique: direct laryngoscopy Devices used: intubating stylet Endotracheal tube insertion site: oral Blade: Stanford Blade size: #3 ETT size (mm): 7.0 Measured from: lips Measurement (cm): 20 Placement verified by: capnometry Cormack-Lehane Classification: grade I - full view of glottis Number of attempts at approach: 1 Failed airway: no Unrecognized esophageal intubation: no Airway not difficult SIGNATURE: Saray Shanks APRN.CRNA PATIENT NAME: Rodrigue Wallace DATE: June 03, 2024 TIME: 12:51 PM CSN: [id number] [facility] 06-02-2024 History of Present illness Narrative COLORECTAL SURGERY June 02, 2024 Rodrigue Wallace 74 year old This consult was requested by Dr. Hamilton and my final recommendations will be communicated to the requesting health care provider by way of the shared medical record for internal providers or letter via the [employer] for external providers. Chief Complaint: rectal cancer History of Present Illness: Rodrigue Wallace is a 74 year old female presents today for evaluation of rectal cancer. Seen by Dr. Alba Hamilton on 04/27/24 CEA on 04/22/24: 7.3 Sigmoidoscopy 05/20/24 - Malignant tumor in the sigmoid colon. Tattooed. - No specimens collected. Colonoscopy 04/21/24 - Dr. Sandy Cristobal - Likely malignant tumor in the proximal rectum, in the recto-sigmoid colon and in the distal sigmoid colon. Biopsied. - Moderate diverticulosis in the sigmoid colon. There was no evidence of diverticular bleeding. - Diverticulosis in the entire examined colon. - The examined portion of the ileum was normal. Pathology DISTAL SIGMOID COLON MASS, BIOPSY: FRAGMENTS OF INVASIVE ADENOCARCINOMA. MRI rectum 05/17/24 No rectal mass identified. Suspicion of mild wall thickening with minimally restricted diffusion in the sigmoid colon which may represent the tumor. Stage: T1/2 N0 MRF: Clear (tumor margin >2 mm from MRF) Sphincter involvement: No. Suspicious extra mesorectal lymph nodes: No. EMVI: No. CT chest 04/28/24 No intrathoracic lymphadenopathy. Multiple small nonspecific scattered bilateral pulmonary nodules (measuring up to 4 mm in size). Of note, 3 mm and 2 mm most inferiorly located nodules are stable compared with limited images through the lung bases on prior CT imaging of the abdomen and pelvis dated 03/05/2024 and 02/26/2024. Mild stable superior endplate deformity and mild chronic loss of height at L1. No thoracic vertebral body compression deformities. Scattered nonspecific tiny sclerotic foci within multiple bilateral ribs and 7 mm sclerotic lesion along the anterior inferior sternum as described. Suspect small nonspecific osseous lucent lesion within the ninth LEFT lateral rib. CT abdomen/pelvis 03/05/24 Falciform hypodensity focal increased fat, posterior diaphragmatic hernia containing stomach, colonic diverticulosis without diverticulitis 74-year-old female with the above history. 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 No date: PAST SURGICAL HISTORY OF Comment: right shoulder surgery 11/02/2015: PAST SURGICAL HISTORY OF; Left Comment: arthroplasty base L thumb. No date: PAST SURGICAL HISTORY OF Comment: all teeth removed for dentures 1990: TOTAL ABDOMINAL HYSTERECT W/WO RMVL TUBE OVARY Comment: RAUL-BSO Current Outpatient Medications Medication Sig Dispense Refill lisinopril (ZESTRIL) 20 mg tablet Take 20 mg by mouth once daily. atorvastatin calcium (ATORVASTATIN ORAL) Take 5 mg by mouth once daily. ergocalciferol, vitamin D2, (VITAMIN D2 ORAL) Take by mouth once daily. fluticasone (FLONASE ALLERGY RELIEF) 50 mcg/actuation nasal spray Use 1 Mobile in each nostril as directed. Nut.Tx.Gluc.Intol,Lac-Free,Soy (GLUCERNA) liqd Take 8 oz by mouth once daily. iv contrast (will be provided with radiology test) MRI Rectum Inject, intravenously, once for 1 dose. No IV access, insert saline lock prior to the beginning of sedation, infusion, injection of imaging exam. Discontinue saline lock post exam. If Pt has a central line or IVAD, may access for administration according to line specific nursing protocol. Once exam is complete flush line and de-access according to line specific nursing protocol in the MR contrast administration guidelines link. 1 Each 0 enteric contrast (will be provided with radiology test) MRI RECTUM WO/W. Administer, As Directed One Time Only, via Oral, Rectal, both Oral and Rectal, Enteric Tube, Stoma or Indwelling Catheter, Enteric Contrast as designated per enteric contrast guidelines 1 Each 0 lactose-reduced food (ENSURE CLEAR ORAL) Take by mouth once daily. ferrous sulfate 325 mg (65 mg iron) tablet Take 1 tablet by mouth. rosuvastatin (CRESTOR) 5 mg tablet coenzyme Q10 30 mg capsule Take 30 mg by mouth. amLODIPine (NORVASC) 10 mg tablet NOVOLOG U-100 INSULIN ASPART 100 unit/mL Use via insulin pump, 30 units daily 6 Vial 3 lisinopril (PRINIVIL) 10 mg tablet Take 1 tablet by mouth once daily. 100 tablet 3 cholecalciferol (VITAMIN D3) 1,000 unit tab Take 2 tablets by mouth once daily. 0 esomeprazole (NEXIUM) 40 mg capsule Take 1 capsule by mouth once daily. 90 capsule 3 sertraline (ZOLOFT) 50 mg tablet Take 1 tablet by mouth once daily. 0 mometasone (NASONEX) 50 mcg/actuation nasal spray Use 2 Sprays in the nose once daily. 0 Aspirin 81 mg ORAL Tab Take one(1) tablet daily. 0 0 No current facility-administered medications for this visit. Facility-Administered Medications Ordered in Other Visits Medication Dose Route Frequency Provider Last Rate Last Admin NaCl 0.9% iv infusion 30 mL/hr INTRAVENOUS CONTINUOUS Sandy Cristobal I, MD 30 mL/hr at 04/21/24 0655 30 mL/hr at 04/21/24 0655 ALLERGIES Allergen Reactions Fosamax [Alendronat* Other: See Comments Leg cramps, severe Macrodantin [Nitrof* Vomiting Penicillins Itching FAMILY HISTORY Problem Relation Age of Onset other (Other [Other]) Unknown No known family history of breast cancer Thyroid Daughter Thyroid Sister Thyroid Maternal Aunt Diabetes Mother Type 2 DM, age 96 Emphysema Father age 76 Colon Cancer Sister Heart Sister Cancer Brother lung cancer Coronary Artery Disease Brother other (prediabetic [Other]) Brother Social History Tobacco Use Smoking status: Former Current packs/day: 0.00 Average packs/day: 1 pack/day for 30.0 years (30.0 ttl pk-yrs) Types: Cigarettes Start date: 09/22/1972 Quit date: 09/22/2002 Years since quittin.6 Smokeless tobacco: Never Vaping Use Vaping status: Never Used Substance Use Topics Alcohol use: Not Currently Drug use: No Physical Exam: BP 138/59 (BP Site: Right Arm, BP Position: Sitting, BP Cuff Size: Regular Adult) Pulse 65 Temp 36.1 C (97 F) SpO2 98% General Appearance: Well appearing, alert, in no acute distress, well-hydrated, well nourished. Abdomen: Soft, nontender, lower midline scar well-healed Assessment Assessment and Plan: Rodrigue Wallace is a 74 year old female with colon cancer. Initial workup showed concerns for rectal cancer but this actually appears to be a sigmoid/rectosigmoid cancer. Case was discussed in tumor board. There is no evidence of spread on CT scans. Will plan for laparoscopic left colectomy/anterior resection. All risks and benefits explained. Consent obtained Medical Decision Making: Data Reviewed: Tests & Documents Reviewed/ordered: Review of prior notes from Dr. Hamilton Review of Pathology Review of Imaging: CT Abdomen, CT Pelvis, MRI Pelvis, CT Chest Review of Labs: CBC, BMP, LFT, Albumin Review of Procedures / Tests: Colonoscopy I have independently interpreted: CT Abdomen, CT Pelvis, MRI Pelvis, CT Chest I have discussed Rodrigue Wallace's treatment plan and/or results with Dr. Hamilton. Risk of morbidity, mortality and/or complications of treatment plan: high Jeramy Garrido MD Colorectal Surgery documented in this encounter [facility] 06-02-2024 Note HNO ID: [id number] Author: JERAMY GARRIDO MD Service: ? Author Type: Physician Type: Progress Notes Filed: 06/02/2024 11:18 Note Text: COLORECTAL SURGERY June 02, 2024 Rodrigue Wallace 74 year old This consult was requested by Dr. Hamilton and my final recommendations will be communicated to the requesting health care provider by way of the shared medical record for internal providers or letter via the [employer] for external providers. Chief Complaint: rectal cancer History of Present Illness: Rodrigue Wallace is a 74 year old female presents today for evaluation of rectal cancer. Seen by Dr. Alba Hamilton on 04/27/24 CEA on 04/22/24: 7.3 Sigmoidoscopy 05/20/24 - Malignant tumor in the sigmoid colon. Tattooed. - No specimens collected. Colonoscopy 04/21/24 - Dr. Sandy Cristobal - Likely malignant tumor in the proximal rectum, in the recto-sigmoid colon and in the distal sigmoid colon. Biopsied. - Moderate diverticulosis in the sigmoid colon. There was no evidence of diverticular bleeding. - Diverticulosis in the entire examined colon. - The examined portion of the ileum was normal. Pathology DISTAL SIGMOID COLON MASS, BIOPSY: FRAGMENTS OF INVASIVE ADENOCARCINOMA. MRI rectum 05/17/24 No rectal mass identified. Suspicion of mild wall thickening with minimally restricted diffusion in the sigmoid colon which may represent the tumor. Stage: T1/2 N0 MRF: Clear (tumor margin >2 mm from MRF) Sphincter involvement: No. Suspicious extra mesorectal lymph nodes: No. EMVI: No. CT chest 04/28/24 No intrathoracic lymphadenopathy. Multiple small nonspecific scattered bilateral pulmonary nodules (measuring up to 4 mm in size). Of note, 3 mm and 2 mm most inferiorly located nodules are stable compared with limited images through the lung bases on prior CT imaging of the abdomen and pelvis dated 03/05/2024 and 02/26/2024. Mild stable superior endplate deformity and mild chronic loss of height at L1. No thoracic vertebral body compression deformities. Scattered nonspecific tiny sclerotic foci within multiple bilateral ribs and 7 mm sclerotic lesion along the anterior inferior sternum as described. Suspect small nonspecific osseous lucent lesion within the ninth LEFT lateral rib. CT abdomen/pelvis 03/05/24 Falciform hypodensity focal increased fat, posterior diaphragmatic hernia containing stomach, colonic diverticulosis without diverticulitis 74-year-old female with the above history. 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 No date: PAST SURGICAL HISTORY OF Comment: right shoulder surgery 11/02/2015: PAST SURGICAL HISTORY OF; Left Comment: arthroplasty base L thumb. No date: PAST SURGICAL HISTORY OF Comment: all teeth removed for dentures 1990: TOTAL ABDOMINAL HYSTERECT W/WO RMVL TUBE OVARY Comment: RAUL-BSO Current Outpatient Medications Medication Sig Dispense Refill lisinopril (ZESTRIL) 20 mg tablet Take 20 mg by mouth once daily. atorvastatin calcium (ATORVASTATIN ORAL) Take 5 mg by mouth once daily. ergocalciferol, vitamin D2, (VITAMIN D2 ORAL) Take by mouth once daily. fluticasone (FLONASE ALLERGY RELIEF) 50 mcg/actuation nasal spray Use 1 Mobile in each nostril as directed. Nut.Tx.Gluc.Intol,Lac-Free,Soy (GLUCERNA) liqd Take 8 oz by mouth once daily. iv contrast (will be provided with radiology test) MRI Rectum Inject, intravenously, once for 1 dose. No IV access, insert saline lock prior to the beginning of sedation, infusion, injection of imaging exam. Discontinue saline lock post exam. If Pt has a central line or IVAD, may access for administration according to line specific nursing protocol. Once exam is complete flush line and de-access according to line specific nursing protocol in the MR contrast administration guidelines link. 1 Each 0 enteric contrast (will be provided with radiology test) MRI RECTUM WO/W. Administer, As Directed One Time Only, via Oral, Rectal, both Oral and Rectal, Enteric Tube, Stoma or Indwelling Catheter, Enteric Contrast as designated per enteric contrast guidelines 1 Each 0 lactose-reduced food (ENSURE CL (more content not included)... [facility] 06-02-2024 Nurse Note What is the reason for your visit today? Rectal cancer Who is your referring physician? Dr. Hamilton Are you having poor oral intake? NO Have you had unintentional weight loss of 15 lbs/7 Kg in the last 3-6 months? NO Bowels: regular Wound: Temperature: No Drains: No [facility] 06-02-2024 Nurse Note What is the reason for your visit today? Rectal cancer Who is your referring physician? Dr. Hamilton Are you having poor oral intake? NO Have you had unintentional weight loss of 15 lbs/7 Kg in the last 3-6 months? NO Bowels: regular Wound: Temperature: No Drains: No documented in this encounter [facility] 05-27-2024 Note HNO ID: [id number] Author: RAFAELA BAUM APRN.FLAG [employer] Service: ? Author Type: Nurse Practitioner Type: Progress Notes Filed: 05/27/2024 13:27 Note Text: [facility] Multidisciplinary GI Tumor Board Primary Disease: rectosigmoid cancer Oncologist: n/a History: 74 year old female with newly diagnosed rectosigmoid/sigmoid colon cancer, initially thought to be rectal cancer. Colonoscopy 04/21/2024 - Dr. Sandy Cristobal - Likely malignant tumor in the proximal rectum, in the recto-sigmoid colon and in the distal sigmoid colon. Biopsied. - Moderate diverticulosis in the sigmoid colon. There was no evidence of diverticular bleeding. - Diverticulosis in the entire examined colon. - The examined portion of the ileum was normal. Pathology DIAGNOSIS B. DISTAL SIGMOID COLON MASS, BIOPSY: FRAGMENTS OF INVASIVE ADENOCARCINOMA. Imaging: MRI rectum 05/17/2024 IMPRESSION: No rectal mass identified. Suspicion of mild wall thickening with minimally restricted diffusion in the sigmoid colon which may represent the tumor. Stage: T1/2 N0 MRF: Clear (tumor margin >2 mm from MRF) Sphincter involvement: No. Suspicious extra mesorectal lymph nodes: No. EMVI: No. CT chest 04/28/2024 IMPRESSION: No intrathoracic lymphadenopathy. Multiple small nonspecific scattered bilateral pulmonary nodules (measuring up to 4 mm in size). Of note, 3 mm and 2 mm most inferiorly located nodules are stable compared with limited images through the lung bases on prior CT imaging of the abdomen and pelvis dated 03/05/2024 and 02/26/2024. Mild stable superior endplate deformity and mild chronic loss of height at L1. No thoracic vertebral body compression deformities. Scattered nonspecific tiny sclerotic foci within multiple bilateral ribs and 7 mm sclerotic lesion along the anterior inferior sternum as described. Suspect small nonspecific osseous lucent lesion within the ninth LEFT lateral rib. CT AP 03/05/2024 Falciform hypodensity focal increased fat, posterior diaphragmatic hernia containing stomach, colonic diverticulosis without diverticulitis Surgical Pathologic Stage: n/a Clinical Pathologic Stage: T1/2N0Mx stage 1 Recommendations: straight to surgery for laparoscopic sigmoid colectomy versus anterior resection. Genetic counseling referral: no Eligibility for Clinic Trials: no Supportive Care Services (PT/OT/Palliative Medicine/Social Work/Pain Management): no Synoptic OP note completed: n/a Attendees: Representatives were present from Medical Oncology, Colorectal Surgery, HPB Surgery, Surgical Oncology, Radiation Oncology, Radiology, Interventional radiology, Gastroenterology and Pathology. This is the summary of the general discussion provided at tumor board conference. The final recommendations will be made by the primary health care team and the patient after discussing the benefits, risks and alternatives to the various treatment options [facility] 05-20-2024 History and physical note ENDO HISTORY AND PHYSICAL EXAMINATION SHORT FORM EVALUATION DATE: 05/20/2024 EVALUATION TIME: 1:19 PM CHIEF COMPLAINT: Rectosigmoid mass HPI: This is a 74 year old female who presents with rectosigmoid mass. Here to evaluate location and place tattoo for operative planning. 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 No date: PAST SURGICAL HISTORY OF Comment: right shoulder surgery 11/02/2015: PAST SURGICAL HISTORY OF; Left Comment: arthroplasty base L thumb. No date: PAST SURGICAL HISTORY OF Comment: all teeth removed for dentures 1990: TOTAL ABDOMINAL HYSTERECT W/WO RMVL TUBE OVARY Comment: RAUL-BSO SOCIAL HISTORY: Social History Tobacco Use Smoking status: Former Current packs/day: 0.00 Average packs/day: 1 pack/day for 30.0 years (30.0 ttl pk-yrs) Types: Cigarettes Start date: 09/22/1972 Quit date: 09/22/2002 Years since quittin.6 Smokeless tobacco: Never Vaping Use Vaping status: Never Used Substance Use Topics Alcohol use: Not Currently Drug use: No FAMILY HISTORY: FAMILY HISTORY Problem Relation Age of Onset other (Other [Other]) Unknown No known family history of breast cancer Thyroid Daughter Thyroid Sister Thyroid Maternal Aunt Diabetes Mother Type 2 DM, age 96 Emphysema Father age 76 Colon Cancer Sister Heart Sister Cancer Brother lung cancer Coronary Artery Disease Brother other (prediabetic [Other]) Brother ALLERGIES: ALLERGIES Allergen Reactions Fosamax [Alendronat* Other: See Comments Leg cramps, severe Macrodantin [Nitrof* Vomiting Penicillins Itching MEDICATIONS: Prior to Admission Medications: lisinopril (ZESTRIL) 20 mg tablet^Take 20 mg by mouth once daily.^Disp: ^Rfl: fluticasone (FLONASE ALLERGY RELIEF) 50 mcg/actuation nasal spray^Use 1 Mobile in each nostril as directed.^Disp: ^Rfl: rosuvastatin (CRESTOR) 5 mg tablet^^Disp: ^Rfl: amLODIPine (NORVASC) 10 mg tablet^^Disp: ^Rfl: NOVOLOG U-100 INSULIN ASPART 100 unit/mL^Use via insulin pump, 30 units daily^Disp: 6 Vial^Rfl: 3 cholecalciferol (VITAMIN D3) 1,000 unit tab^Take 2 tablets by mouth once daily.^Disp: ^Rfl: 0 esomeprazole (NEXIUM) 40 mg capsule^Take 1 capsule by mouth once daily.^Disp: 90 capsule^Rfl: 3 sertraline (ZOLOFT) 50 mg tablet^Take 1 tablet by mouth once daily.^Disp: ^Rfl: 0 mometasone (NASONEX) 50 mcg/actuation nasal spray^Use 2 Sprays in the nose once daily.^Disp: ^Rfl: 0 Aspirin 81 mg ORAL Tab^Take one(1) tablet daily.^Disp: 0^Rfl: 0 atorvastatin calcium (ATORVASTATIN ORAL)^Take 5 mg by mouth once daily.^Disp: ^Rfl: ergocalciferol, vitamin D2, (VITAMIN D2 ORAL)^Take by mouth once daily.^Disp: ^Rfl: Nut.Tx.Gluc.Intol,Lac-Free,Soy (GLUCERNA) liqd^Take 8 oz by mouth once daily.^Disp: ^Rfl: iv contrast (will be provided with radiology test)^MRI Rectum Inject, intravenously, once for 1 dose. No IV access, insert saline lock prior to the beginning of sedation, infusion, injection of imaging exam. Discontinue saline lock post exam. If Pt has a central line or IVAD, may access for administration according to line specific nursing protocol. Once exam is complete flush line and de-access according to line specific nursing protocol in the MR contrast administration guidelines link.^Disp: 1 Each^Rfl: 0 enteric contrast (will be provided with radiology test)^MRI RECTUM WO/W. Administer, As Directed One Time Only, via Oral, Rectal, both Oral and Rectal, Enteric Tube, Stoma or Indwelling Catheter, Enteric Contrast as designated per enteric contrast guidelines^Disp: 1 Each^Rfl: 0 lactose-reduced food (ENSURE CLEAR ORAL)^Take by mouth once daily.^Disp: ^Rfl: ferrous sulfate 325 mg (65 mg iron) tablet^Take 1 tablet by mouth.^Disp: ^Rfl: coenzyme Q10 30 mg capsule^Take 30 mg by mouth.^Disp: ^Rfl: lisinopril (PRINIVIL) 10 mg tablet^Take 1 tablet by mouth once daily.^Disp: 100 tablet^Rfl: 3 Current Facility-Administered Medications Medication Dose Route Frequency lidocaine (PF) 10 mg/mL (1 %) 1-2 mg injection (XYLOCAINE) 0.1-0.2 mL INTRADERMAL PRN lactated ringers iv infusion 30 mL/hr INTRAVENOUS CONTINUOUS Facility-Administered Medications Ordered in Other Encounters Medication Dose Route Frequency NaCl 0.9% iv infusion 30 mL/hr INTRAVENOUS CONTINUOUS REVIEW OF SYSTEMS: WINTER INTERN: Negative for CVA, Negative for TIA Respiratory: Negative for smoking, dyspnea, cough, asthma, bronchitis, emphysema Cardiovascular: Negative for chest pain, leg swelling or palpitations. GI: See HPI : No history of dysuria, frequency and incontinence Endocrine: Negative for cold or heat intolerance, polyuria, polydipsia and goiter. Hematology Negative for prolonged bleeding, bruising easily, and swollen nodes. PHYSICAL EXAM: Patient Vitals for the past 24 hrs: BP Temp Temp src Pulse Resp SpO2 05/20/24 1302 131/77 36.2 C (97.1 F) Temporal 81 16 98 % General Appearance: well appearing, alert, in no acute distress Oropharynx: teeth normal, oropharynx normal Neck: Full range of motion, Supple Lungs: Comfortable on room air. Symmetric chest rise. Heart: RRR. Extremities warm. Abdomen: Abdomen soft, non-tender, non-distended. Bowel sounds normal. No masses, organomegaly Extremities: No clubbing, cyanosis, or edema. IMPRESSION: New rectosigmoid cancer PLAN OF TREATMENT: Flexible Sigmiodoscopy SIGNATURE: Lee Patel MD PATIENT NAME: Rodrigue Wallace DATE: May 20, 2024 TIME: 1:19 PM [facility] Work Phone: 05-20-2024 History and physical note ENDO HISTORY AND PHYSICAL EXAMINATION SHORT FORM EVALUATION DATE: 05/20/2024 EVALUATION TIME: 1:19 PM CHIEF COMPLAINT: Rectosigmoid mass HPI: This is a 74 year old female who presents with rectosigmoid mass. Here to evaluate location and place tattoo for operative planning. 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 No date: PAST SURGICAL HISTORY OF Comment: right shoulder surgery 11/02/2015: PAST SURGICAL HISTORY OF; Left Comment: arthroplasty base L thumb. No date: PAST SURGICAL HISTORY OF Comment: all teeth removed for dentures 1990: TOTAL ABDOMINAL HYSTERECT W/WO RMVL TUBE OVARY Comment: RAUL-BSO SOCIAL HISTORY: Social History Tobacco Use Smoking status: Former Current packs/day: 0.00 Average packs/day: 1 pack/day for 30.0 years (30.0 ttl pk-yrs) Types: Cigarettes Start date: 09/22/1972 Quit date: 09/22/2002 Years since quittin.6 Smokeless tobacco: Never Vaping Use Vaping status: Never Used Substance Use Topics Alcohol use: Not Currently Drug use: No FAMILY HISTORY: FAMILY HISTORY Problem Relation Age of Onset other (Other [Other]) Unknown No known family history of breast cancer Thyroid Daughter Thyroid Sister Thyroid Maternal Aunt Diabetes Mother Type 2 DM, age 96 Emphysema Father age 76 Colon Cancer Sister Heart Sister Cancer Brother lung cancer Coronary Artery Disease Brother other (prediabetic [Other]) Brother ALLERGIES: ALLERGIES Allergen Reactions Fosamax [Alendronat* Other: See Comments Leg cramps, severe Macrodantin [Nitrof* Vomiting Penicillins Itching MEDICATIONS: Prior to Admission Medications: lisinopril (ZESTRIL) 20 mg tablet^Take 20 mg by mouth once daily.^Disp: ^Rfl: fluticasone (FLONASE ALLERGY RELIEF) 50 mcg/actuation nasal spray^Use 1 Mobile in each nostril as directed.^Disp: ^Rfl: rosuvastatin (CRESTOR) 5 mg tablet^^Disp: ^Rfl: amLODIPine (NORVASC) 10 mg tablet^^Disp: ^Rfl: NOVOLOG U-100 INSULIN ASPART 100 unit/mL^Use via insulin pump, 30 units daily^Disp: 6 Vial^Rfl: 3 cholecalciferol (VITAMIN D3) 1,000 unit tab^Take 2 tablets by mouth once daily.^Disp: ^Rfl: 0 esomeprazole (NEXIUM) 40 mg capsule^Take 1 capsule by mouth once daily.^Disp: 90 capsule^Rfl: 3 sertraline (ZOLOFT) 50 mg tablet^Take 1 tablet by mouth once daily.^Disp: ^Rfl: 0 mometasone (NASONEX) 50 mcg/actuation nasal spray^Use 2 Sprays in the nose once daily.^Disp: ^Rfl: 0 Aspirin 81 mg ORAL Tab^Take one(1) tablet daily.^Disp: 0^Rfl: 0 atorvastatin calcium (ATORVASTATIN ORAL)^Take 5 mg by mouth once daily.^Disp: ^Rfl: ergocalciferol, vitamin D2, (VITAMIN D2 ORAL)^Take by mouth once daily.^Disp: ^Rfl: Nut.Tx.Gluc.Intol,Lac-Free,Soy (GLUCERNA) liqd^Take 8 oz by mouth once daily.^Disp: ^Rfl: iv contrast (will be provided with radiology test)^MRI Rectum Inject, intravenously, once for 1 dose. No IV access, insert saline lock prior to the beginning of sedation, infusion, injection of imaging exam. Discontinue saline lock post exam. If Pt has a central line or IVAD, may access for administration according to line specific nursing protocol. Once exam is complete flush line and de-access according to line specific nursing protocol in the MR contrast administration guidelines link.^Disp: 1 Each^Rfl: 0 enteric contrast (will be provided with radiology test)^MRI RECTUM WO/W. Administer, As Directed One Time Only, via Oral, Rectal, both Oral and Rectal, Enteric Tube, Stoma or Indwelling Catheter, Enteric Contrast as designated per enteric contrast guidelines^Disp: 1 Each^Rfl: 0 lactose-reduced food (ENSURE CLEAR ORAL)^Take by mouth once daily.^Disp: ^Rfl: ferrous sulfate 325 mg (65 mg iron) tablet^Take 1 tablet by mouth.^Disp: ^Rfl: coenzyme Q10 30 mg capsule^Take 30 mg by mouth.^Disp: ^Rfl: lisinopril (PRINIVIL) 10 mg tablet^Take 1 tablet by mouth once daily.^Disp: 100 tablet^Rfl: 3 Current Facility-Administered Medications Medication Dose Route Frequency lidocaine (PF) 10 mg/mL (1 %) 1-2 mg injection (XYLOCAINE) 0.1-0.2 mL INTRADERMAL PRN lactated ringers iv infusion 30 mL/hr INTRAVENOUS CONTINUOUS Facility-Administered Medications Ordered in Other Encounters Medication Dose Route Frequency NaCl 0.9% iv infusion 30 mL/hr INTRAVENOUS CONTINUOUS REVIEW OF SYSTEMS: WINTER INTERN: Negative for CVA, Negative for TIA Respiratory: Negative for smoking, dyspnea, cough, asthma, bronchitis, emphysema Cardiovascular: Negative for chest pain, leg swelling or palpitations. GI: See HPI : No history of dysuria, frequency and incontinence Endocrine: Negative for cold or heat intolerance, polyuria, polydipsia and goiter. Hematology Negative for prolonged bleeding, bruising easily, and swollen nodes. PHYSICAL EXAM: Patient Vitals for the past 24 hrs: BP Temp Temp src Pulse Resp SpO2 05/20/24 1302 131/77 36.2 C (97.1 F) Temporal 81 16 98 % General Appearance: well appearing, alert, in no acute distress Oropharynx: teeth normal, oropharynx normal Neck: Full range of motion, Supple Lungs: Comfortable on room air. Symmetric chest rise. Heart: RRR. Extremities warm. Abdomen: Abdomen soft, non-tender, non-distended. Bowel sounds normal. No masses, organomegaly Extremities: No clubbing, cyanosis, or edema. IMPRESSION: New rectosigmoid cancer PLAN OF TREATMENT: Flexible Sigmiodoscopy SIGNATURE: Lee Patel MD PATIENT NAME: Rodrigue Wallace DATE: May 20, 2024 TIME: 1:19 PM documented in this encounter [facility] 05-17-2024 History of Present illness Narrative Radiology Service Progress Note PATIENT NAME: Rodrigue Wallace DATE OF SERVICE: May 17, 2024 TIME: 2:00 PM PATIENT IDENTITY VERIFICATION COMPLETED USING TWO (2) IDENTIFIERS: Name and Date of confirmed by patient verbally. FALL SCREENING: Has the patient had 2 falls in the last year or 1 fall with injury or currently using an Ambulatory Assistive Device (Walker, Cane, Wheelchair, Crutches, etc.)? No PATIENT GENDER DATA: Female. status: : No status: NO. PATIENT RELEVANT IMPLANT DATA REVIEWED: Not Applicable PATIENT PRESENTS WITH AN IMPLANTABLE OR ATTACHED SENIOR CONSULTANT: No RADIOLOGY DEPARTMENT: MR; Exam(s) Completed: Body: Rectal PERIPHERAL IV DATA: Site assessment: Clean,Dry and Intact, Site disposition Discontinued SIGNED BY: RT Jenn(Maile) May 17, 2024 2:00 PM documented in this encounter [facility] 05-17-2024 Note HNO ID: [id number] Author: TRACY LEVY RT(R) Service: Radiology Author Type: Technologist Type: Progress Notes Filed: 05/17/2024 14:01 Note Text: Radiology Service Progress Note PATIENT NAME: Rodrigue Wallace DATE OF SERVICE: May 17, 2024 TIME: 2:00 PM PATIENT IDENTITY VERIFICATION COMPLETED USING TWO (2) IDENTIFIERS: Name and Date of confirmed by patient verbally. FALL SCREENING: Has the patient had 2 falls in the last year or 1 fall with injury or currently using an Ambulatory Assistive Device (Walker, Cane, Wheelchair, Crutches, etc.)? No PATIENT GENDER DATA: Female. status: : No status: NO. PATIENT RELEVANT IMPLANT DATA REVIEWED: Not Applicable PATIENT PRESENTS WITH AN IMPLANTABLE OR ATTACHED SENIOR CONSULTANT: No RADIOLOGY DEPARTMENT: MR; Exam(s) Completed: Body: Rectal PERIPHERAL IV DATA: Site assessment: Clean,Dry and Intact, Site disposition Discontinued SIGNED BY: RT Jenn(Maile) May 17, 2024 2:00 PM [facility] 05-17-2024 Nurse Note Radiology Service Progress Note DATE OF SERVICE: May 17, 2024 TIME: 1:25 PM PATIENT WEIGHT: 140LBS PATIENT IDENTITY VERIFICATION COMPLETED USING TWO (2) STANDARD IDENTIFIERS: Name and Date of confirmed by patient verbally. FALL SCREENING: Has the patient had 2 falls in the last year or 1 fall with injury or currently using an Ambulatory Assistive Device (Walker, Cane, Wheelchair, Crutches, etc.)? No PATIENT GENDER DATA: Female. status: : No status: N/A ALLERGIES: Reviewed and unchanged CONTRAST ALLERGY: No EXAM: MRI - CONTRAST TYPE: GROUP II IV SITE: Ambulatory: A peripheral IV was started in the Right antecubital site with a Angio cath/Butterfly: 22 gauge. IV SITE APPEARANCE: Clean,Dry and Intact SIGNATURE: Jack Bull RN PATIENT NAME: Rodrigue Wallace DATE: May 17, 2024 TIME: 1:25 PM [facility] 05-17-2024 Nurse Note Radiology Service Progress Note DATE OF SERVICE: May 17, 2024 TIME: 1:25 PM PATIENT WEIGHT: 140LBS PATIENT IDENTITY VERIFICATION COMPLETED USING TWO (2) STANDARD IDENTIFIERS: Name and Date of confirmed by patient verbally. FALL SCREENING: Has the patient had 2 falls in the last year or 1 fall with injury or currently using an Ambulatory Assistive Device (Walker, Cane, Wheelchair, Crutches, etc.)? No PATIENT GENDER DATA: Female. status: : No status: N/A ALLERGIES: Reviewed and unchanged CONTRAST ALLERGY: No EXAM: MRI - CONTRAST TYPE: GROUP II IV SITE: Ambulatory: A peripheral IV was started in the Right antecubital site with a Angio cath/Butterfly: 22 gauge. IV SITE APPEARANCE: Clean,Dry and Intact SIGNATURE: Jack Bull RN PATIENT NAME: Rodrigue Wallace DATE: May 17, 2024 TIME: 1:25 PM documented in this encounter [facility] 05-10-2024 Telephone encounter Note Called. No answer. Left voice message that due to an unforseen schedule change in Dr Hamilton's schedule, she is no longer available to perform your scope on May 20. Dr Garrido will now perform your scope on May 20. If you do not want to proceed with Dr Garrido, then please call the office back to reschedule. She will also call the office back Any questions or concerns. [facility] 05-10-2024 Miscellaneous Notes Called. No answer. Left voice message that due to an unforseen schedule change in Dr Hamilton's schedule, she is no longer available to perform your scope on May 20. Dr Garrido will now perform your scope on May 20. If you do not want to proceed with Dr Garrido, then please call the office back to reschedule. She will also call the office back Any questions or concerns. documented in this encounter [facility] 04-28-2024 History of Present illness Narrative Radiology Service Progress Note PATIENT NAME: Rodrigue Wallace DATE OF SERVICE: April 28, 2024 TIME: 4:56 PM PATIENT IDENTITY VERIFICATION COMPLETED USING TWO (2) IDENTIFIERS: Name and Date of confirmed by patient verbally and Name and Date of confirmed by identification band. FALL SCREENING: Has the patient had 2 falls in the last year or 1 fall with injury or currently using an Ambulatory Assistive Device (Walker, Cane, Wheelchair, Crutches, etc.)? No PATIENT GENDER DATA: Female. status: : No status: NO. PATIENT RELEVANT IMPLANT DATA REVIEWED: Not Applicable PATIENT PRESENTS WITH AN IMPLANTABLE OR ATTACHED SENIOR CONSULTANT: No RADIOLOGY DEPARTMENT: CT; Exam(s) Completed: Chest PERIPHERAL IV DATA: Not applicable SIGNED BY: CHITRA Urbina) April 28, 2024 4:56 PM documented in this encounter [facility] 04-28-2024 Note HNO ID: [id number] Author: RYAN KWAN RT(R) Service: Radiology Author Type: Technologist Type: Progress Notes Filed: 04/28/2024 16:56 Note Text: Radiology Service Progress Note PATIENT NAME: Rodrigue Wallace DATE OF SERVICE: April 28, 2024 TIME: 4:56 PM PATIENT IDENTITY VERIFICATION COMPLETED USING TWO (2) IDENTIFIERS: Name and Date of confirmed by patient verbally and Name and Date of confirmed by identification band. FALL SCREENING: Has the patient had 2 falls in the last year or 1 fall with injury or currently using an Ambulatory Assistive Device (Walker, Cane, Wheelchair, Crutches, etc.)? No PATIENT GENDER DATA: Female. status: : No status: NO. PATIENT RELEVANT IMPLANT DATA REVIEWED: Not Applicable PATIENT PRESENTS WITH AN IMPLANTABLE OR ATTACHED SENIOR CONSULTANT: No RADIOLOGY DEPARTMENT: CT; Exam(s) Completed: Chest PERIPHERAL IV DATA: Not applicable SIGNED BY: RT Carlitos(R) April 28, 2024 4:56 PM [facility] 04-27-2024 Nurse Note Sigmoidoscopy instructions given for May 20. Our office will help schedule the scans and then she will follow up with Dr Hamilton in the office. No other questions at this time. [facility] 04-27-2024 Nurse Note Sigmoidoscopy instructions given for May 20. Our office will help schedule the scans and then she will follow up with Dr Hamilton in the office. No other questions at this time. documented in this encounter [facility] 04-27-2024 History of Present illness Narrative COLORECTAL SURGERY April 27, 2024 Rodrigue Wallace 74 year old This consult was requested by Dr. Cristobal and my final recommendations will be communicated to the requesting health care provider by way of the shared medical record for internal providers or letter via the [employer] for external providers. Chief Complaint: rectosigmoid cancer History of Present Illness: Rodrigue Wallace is a 74 year old female presents today for evaluation of rectosigmoid cancer. Symptoms: Hospital stays for diverticulitis prompting colonoscopy Bleeding: yes Change in stool/constipation: yes Nausea/emesis: yes Abdominal pain: yes All symptoms were related to diverticulitis and have since resolved Weight change in last 6 months: 25 lbs in last 6 months Functional status: independent PMH: no hx [place], CVA, VTE. OA on narcotics until recently. DM type 1. PSH: prior ortho and spine procedures including ALIF in the 2002. RAUL. Prior pelvic radiation: no Family history of CRC: yes in her sister diagnosed in her 70s Endoscopist: M. Tabbaa Medical oncologist: CEDRICK Radiation oncologist: D Colonoscopy 04/21/24 - Dr. Sandy Cristobal - Likely malignant tumor in the proximal rectum, in the recto-sigmoid colon and in the distal sigmoid colon. Biopsied. - Moderate diverticulosis in the sigmoid colon. There was no evidence of diverticular bleeding. - Diverticulosis in the entire examined colon. - The examined portion of the ileum was normal. Pathology DIAGNOSIS B. DISTAL SIGMOID COLON MASS, BIOPSY: FRAGMENTS OF INVASIVE ADENOCARCINOMA. 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 No date: PAST SURGICAL HISTORY OF Comment: right shoulder surgery 11/02/2015: PAST SURGICAL HISTORY OF; Left Comment: arthroplasty base L thumb. No date: PAST SURGICAL HISTORY OF Comment: all teeth removed for dentures 1990: TOTAL ABDOMINAL HYSTERECT W/WO RMVL TUBE OVARY Comment: RAUL-BSO Current Outpatient Medications Medication Sig Dispense Refill lisinopril (ZESTRIL) 20 mg tablet Take 20 mg by mouth once daily. atorvastatin calcium (ATORVASTATIN ORAL) Take 5 mg by mouth once daily. ergocalciferol, vitamin D2, (VITAMIN D2 ORAL) Take by mouth once daily. fluticasone (FLONASE ALLERGY RELIEF) 50 mcg/actuation nasal spray Use 1 Mobile in each nostril as directed. Nut.Tx.Gluc.Intol,Lac-Free,Soy (GLUCERNA) liqd Take 8 oz by mouth once daily. ferrous sulfate 325 mg (65 mg iron) tablet Take 1 tablet by mouth. coenzyme Q10 30 mg capsule Take 30 mg by mouth. amLODIPine (NORVASC) 10 mg tablet NOVOLOG U-100 INSULIN ASPART 100 unit/mL Use via insulin pump, 30 units daily 6 Vial 3 cholecalciferol (VITAMIN D3) 1,000 unit tab Take 2 tablets by mouth once daily. 0 esomeprazole (NEXIUM) 40 mg capsule Take 1 capsule by mouth once daily. 90 capsule 3 sertraline (ZOLOFT) 50 mg tablet Take 1 tablet by mouth once daily. 0 Aspirin 81 mg ORAL Tab Take one(1) tablet daily. 0 0 iv contrast (will be provided with radiology test) MRI Rectum Inject, intravenously, once for 1 dose. No IV access, insert saline lock prior to the beginning of sedation, infusion, injection of imaging exam. Discontinue saline lock post exam. If Pt has a central line or IVAD, may access for administration according to line specific nursing protocol. Once exam is complete flush line and de-access according to line specific nursing protocol in the MR contrast administration guidelines link. 1 Each 0 enteric contrast (will be provided with radiology test) MRI RECTUM WO/W. Administer, As Directed One Time Only, via Oral, Rectal, both Oral and Rectal, Enteric Tube, Stoma or Indwelling Catheter, Enteric Contrast as designated per enteric contrast guidelines 1 Each 0 lactose-reduced food (ENSURE CLEAR ORAL) Take by mouth once daily. rosuvastatin (CRESTOR) 5 mg tablet lisinopril (PRINIVIL) 10 mg tablet Take 1 tablet by mouth once daily. 100 tablet 3 mometasone (NASONEX) 50 mcg/actuation nasal spray Use 2 Sprays in the nose once daily. 0 No current facility-administered medications for this visit. Facility-Administered Medications Ordered in Other Visits Medication Dose Route Frequency Provider Last Rate Last Admin NaCl 0.9% iv infusion 30 mL/hr INTRAVENOUS CONTINUOUS Sandy Cristobal I, MD 30 mL/hr at 04/21/24 0655 30 mL/hr at 04/21/24 0655 ALLERGIES Allergen Reactions Fosamax [Alendronat* Other: See Comments Leg cramps, severe Macrodantin [Nitrof* Vomiting Penicillins Itching FAMILY HISTORY Problem Relation Age of Onset other (Other [Other]) Unknown No known family history of breast cancer Thyroid Daughter Thyroid Sister Thyroid Maternal Aunt Diabetes Mother Type 2 DM, age 96 Emphysema Father age 76 Colon Cancer Sister Heart Sister Cancer Brother lung cancer Coronary Artery Disease Brother other (prediabetic [Other]) Brother Social History Tobacco Use Smoking status: Former Packs/day: 1.00 Years: 30.00 Additional pack years: 0.00 Total pack years: 30.00 Types: Cigarettes Quit date: 09/22/2002 Years since quittin.6 Smokeless tobacco: Never Vaping Use Vaping Use: Never used Substance Use Topics Alcohol use: Not Currently Drug use: No Physical Exam: BP 134/70 (BP Site: Right Arm, BP Position: Sitting) Pulse 74 Ht 160 cm (5' 3 ) Wt 63.5 kg (140 lb) BMI 24.80 kg/m General Appearance: Well appearing, alert, in no acute distress, well-hydrated, well nourished. Abdomen: lower midline and lower transverse incisions well healed no hernia. Assessment Assessment and Plan: Rodrigue Wallace is a 74 year old female with rectosigmoid (upper rectal) adenocarcinoma. Flex sig and tattoo CT chest MR rectum Tumor board Appointment after tumor board - we discussed treatment possibilities including surgery upfront (LAR) versus chemo/RT and possible role for surgery (LAR w/ DLI). Will determine need for med onc/rad onc referrals depending on additional findings. Medical Decision Making: Data Reviewed: Tests & Documents Reviewed/ordered: Review of Pathology Review of Imaging: CT Abdomen, CT Pelvis Review of Labs: CEA Review of Procedures / Tests: Colonoscopy Additional testing or imaging to be ordered: CT chest, MR rectum, flex sig and tattoo I have independently interpreted: CT Abdomen, CT Pelvis no metastatic disease in the abdomen, mass not visualized radiographically I have discussed Rodrigue Wallace's treatment plan and/or results with the patient, her , Dr. Cristobal. I spent a total of 60 minutes on the date of the service which included preparing to see the patient, [id number] patient care, completing clinical documentation, obtaining and/or reviewing separately obtained history, performing a medically appropriate examination, counseling and educating the patient/family/caregiver, ordering medications, tests, or procedures, communicating with other HCPs (not separately reported), independently interpreting results (not separately reported), communicating results to the patient/family/caregiver, and care coordination (not separately reported). Pamela Hamilton MD Colorectal Surgery documented in this encounter [facility] 04-27-2024 Note HNO ID: [id number] Author: PAMELA HAMILTON MD Service: ? Author Type: Physician Type: Progress Notes Filed: 04/28/2024 16:16 Note Text: COLORECTAL SURGERY April 27, 2024 Rodrigue Wallace 74 year old This consult was requested by Dr. Cristobal and my final recommendations will be communicated to the requesting health care provider by way of the shared medical record for internal providers or letter via the [employer] for external providers. Chief Complaint: rectosigmoid cancer History of Present Illness: Rodrigue Wallace is a 74 year old female presents today for evaluation of rectosigmoid cancer. Symptoms: Hospital stays for diverticulitis prompting colonoscopy Bleeding: yes Change in stool/constipation: yes Nausea/emesis: yes Abdominal pain: yes All symptoms were related to diverticulitis and have since resolved Weight change in last 6 months: 25 lbs in last 6 months Functional status: independent PMH: no hx [place], CVA, VTE. OA on narcotics until recently. DM type 1. PSH: prior ortho and spine procedures including ALIF in the 2002. RAUL. Prior pelvic radiation: no Family history of CRC: yes in her sister diagnosed in her 70s Endoscopist: Argenis Cristobal Medical oncologist: CEDRICK Radiation oncologist: TBD Colonoscopy 04/21/24 - Dr. Sandy Cristobal - Likely malignant tumor in the proximal rectum, in the recto-sigmoid colon and in the distal sigmoid colon. Biopsied. - Moderate diverticulosis in the sigmoid colon. There was no evidence of diverticular bleeding. - Diverticulosis in the entire examined colon. - The examined portion of the ileum was normal. Pathology DIAGNOSIS B. DISTAL SIGMOID COLON MASS, BIOPSY: FRAGMENTS OF INVASIVE ADENOCARCINOMA. 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 No date: PAST SURGICAL HISTORY OF Comment: right shoulder surgery 11/02/2015: PAST SURGICAL HISTORY OF; Left Comment: arthroplasty base L thumb. No date: PAST SURGICAL HISTORY OF Comment: all teeth removed for dentures 1990: TOTAL ABDOMINAL HYSTERECT W/WO RMVL TUBE OVARY Comment: RAUL-BSO Current Outpatient Medications Medication Sig Dispense Refill lisinopril (ZESTRIL) 20 mg tablet Take 20 mg by mouth once daily. atorvastatin calcium (ATORVASTATIN ORAL) Take 5 mg by mouth once daily. ergocalciferol, vitamin D2, (VITAMIN D2 ORAL) Take by mouth once daily. fluticasone (FLONASE ALLERGY RELIEF) 50 mcg/actuation nasal spray Use 1 Mobile in each nostril as directed. Nut.Tx.Gluc.Intol,Lac-Free,Soy (GLUCERNA) liqd Take 8 oz by mouth once daily. ferrous sulfate 325 mg (65 mg iron) tablet Take 1 tablet by mouth. coenzyme Q10 30 mg capsule Take 30 mg by mouth. amLODIPine (NORVASC) 10 mg tablet NOVOLOG U-100 INSULIN ASPART 100 unit/mL Use via insulin pump, 30 units daily 6 Vial 3 cholecalciferol (VITAMIN D3) 1,000 unit tab Take 2 tablets by mouth once daily. 0 esomeprazole (NEXIUM) 40 mg capsule Take 1 capsule by mouth once daily. 90 capsule 3 sertraline (ZOLOFT) 50 mg tablet Take 1 tablet by mouth once daily. 0 Aspirin 81 mg ORAL Tab Take one(1) tablet daily. 0 0 iv contrast (will be provided with radiology test) MRI Rectum Inject, intravenously, once for 1 dose. No IV access, insert saline lock prior to the beginning of sedation, infusion, injection of imaging exam. Discontinue saline lock post exam. If Pt has a central line or IVAD, may access for administration according to line specific nursing protocol. Once exam is complete flush line and de-access according to line specific nursing protocol in the MR contrast administration guidelines link. 1 Each 0 enteric contrast (will be provided with radiology test) MRI RECTUM WO/W. Administer, As Directed One Time Only, via Oral, Rectal, both Oral and Rectal, Enteric Tube, Stoma or Indwelling Catheter, Enteric Contrast as designated per enteric contrast guidelines 1 Each 0 (more content not included)... [facility] 04-21-2024 Note [facility] Patient Name: Rodrigue Thompson Procedure Date: 04/21/2024 7:26 AM Date of : 1950 Age: 74 Gender: Female Race: Unknown Attending MD: Sandy Cristobal MD, [id number] Procedure: Colonoscopy Referring MD: Howard Santiago Providers: Sandy Cristobal MD Indications: Lower abdominal pain, Iron deficiency anemia, Family history of colon cancer in a first-degree relative Findings: The perianal and digital rectal examinations were normal. A polypoid and sessile non-obstructing medium-sized mass was found in the proximal rectum, in the recto-sigmoid colon and in the distal sigmoid colon. The mass was non-circumferential. The mass measured four cm in length. In addition, its diameter measured thirty mm. No bleeding was present. Biopsies were taken with a cold forceps for histology. Verification of patient identification for the specimen was done. Estimated blood loss was minimal. Multiple small-mouthed diverticula were found in the sigmoid colon. There was no evidence of diverticular bleeding. Multiple medium-mouthed diverticula were found in the entire colon. The exam was otherwise normal throughout the examined colon. The terminal ileum appeared normal. Impression: - Likely malignant tumor in the proximal rectum, in the recto-sigmoid colon and in the distal sigmoid colon. Biopsied. - Moderate diverticulosis in the sigmoid colon. There was no evidence of diverticular bleeding. - Diverticulosis in the entire examined colon. - The examined portion of the ileum was normal. Recommendation: - Patient has a contact number available for emergencies. The signs and symptoms of potential delayed complications were discussed with the patient. Return to normal activities tomorrow. Written discharge instructions were provided to the patient. - Resume previous diet. - Continue present medications. - Await pathology results. - Refer to a colo-rectal surgeon at the next available appointment. - Repeat colonoscopy in 11 months for surveillance. - Return to primary care physician as previously scheduled. Medicines: See the Anesthesia note for documentation of the administered medications Procedure: Pre-Anesthesia Assessment: - See the other procedure note for documentation of the pre-procedure assessment. - Prior to the procedure, a History and Physical was performed, and patient medications and allergies were reviewed. The patient's tolerance of previous anesthesia was also reviewed. The risks and benefits of the procedure and the sedation options and risks were discussed with the patient. All questions were answered, and informed consent was obtained. Prior Anticoagulants: The patient has taken no anticoagulant or antiplatelet agents. ASA Grade Assessment: II - A patient with mild systemic disease. After reviewing the risks and benefits, the patient was deemed in satisfactory condition to undergo the procedure. After I obtained informed consent, the scope was passed under direct vision. Throughout the procedure, the patient's blood pressure, pulse, and oxygen saturations were monitored continuously. Provation AI/GI Genius was used during withdrawal. The COLONOSCOPE was introduced through the anus and advanced to the terminal ileum, with identification of the appendiceal orifice and IC valve. The colonoscopy was performed without difficulty. The patient tolerated the procedure well. The qual (more content not included)... [facility] 04-21-2024 Note [facility] Patient Name: Rodrigue Thompson Procedure Date: 04/21/2024 6:42 AM Date of : 1950 Age: 74 Gender: Female Race: Unknown Attending MD: Sandy Cristobal MD, [id number] Procedure: Upper GI endoscopy Referring MD: Howard Santiago Providers: Sandy Cristobal MD Indications: Heartburn Findings: The Z-line was regular and was found 30 cm from the incisors. The examined esophagus was moderately tortuous. The exam of the esophagus was otherwise normal. A large hiatal hernia was present. A large hiatal hernia was found. The proximal extent of the gastric folds (end of tubular esophagus) was 30 cm from the incisors. The hiatal narrowing was 38 cm from the incisors. The Z-line was 29 cm from the incisors. The exam was otherwise without abnormality. The examined duodenum was normal. Biopsies were taken with a cold forceps for histology. Verification of patient identification for the specimen was done. Estimated blood loss was minimal. Patient Profile: This is a 74 year old female. Refer to note in patient chart for documentation of history and physical. Patient has symptoms. Impression: - Z-line regular, 30 cm from the incisors. - Tortuous esophagus. - Large hiatal hernia. - Large hiatal hernia. - The examination was otherwise normal. - Normal examined duodenum. Biopsied. Recommendation: - Patient has a contact number available for emergencies. The signs and symptoms of potential delayed complications were discussed with the patient. Return to normal activities tomorrow. Written discharge instructions were provided to the patient. - Resume previous diet. - Continue present medications. - Await pathology results. - Return to primary care physician as previously scheduled. Medicines: See the Anesthesia note for documentation of the administered medications Procedure: Pre-Anesthesia Assessment: - Prior to the procedure, a History and Physical was performed, and patient medications and allergies were reviewed. The patient is competent. The risks and benefits of the procedure and the sedation options and risks were discussed with the patient. All questions were answered and informed consent was obtained. Patient identification and proposed procedure were verified by the physician, the nurse and the grinding and polishing laborer in the pre-procedure area in the endoscopy suite. Mental Status Examination: alert and oriented. Airway Examination: normal oropharyngeal airway and neck mobility. Respiratory Examination: clear to auscultation. CV Examination: normal. Prophylactic Antibiotics: The patient does not require prophylactic antibiotics. Prior Anticoagulants: The patient has taken no anticoagulant or antiplatelet agents. ASA Grade Assessment: II - A patient with mild systemic disease. After reviewing the risks and benefits, the patient was deemed in satisfactory condition to undergo the procedure. The anesthesia plan was to use monitored anesthesia care (MAC). Immediately prior to administration of medications, the patient was re-assessed for adequacy to receive sedatives. The heart rate, respiratory rate, oxygen saturations, blood pressure, adequacy of pulmonary ventilation, and response to care were monitored throughout the procedure. The physical status of the patient was re-assessed after the procedure. - Sedation was administered by an anesthesia professional. Deep sedation was attained. (more content not included)... [facility] 04-21-2024 History and physical note [facility] [address] [place] [address] Rodrigue Wallace is a 73 year old [...] has been recommended repair in the past. UPDATED HISTORY AND PHYSICAL EXAMINATION SERVICE DATE: 04/21/2024 SERVICE TIME: 8:09 AM PHYSICAL EXAM MUST BE COMPLETED ON ADMISSION The History and Physical (completed in the past 30 days) has been reviewed and the patient has been examined. The contents accurately reflect the patient's condition with the following additions or revisions since the H&P was completed. Examination indicates no changes. This H&P can be found in the Electronic Medical Record. SIGNATURE: Sandy Cristobal MD PATIENT NAME: Rodrigue Wallace DATE: April 21, 2024 TIME: 8:09 AM PAGER: Sandy Cristobal MD [facility] vending machine mechanic,[facility] Clinical personal property appraiser, [facility] 04-21-2024 History and physical note [facility] [address] [place] [address] Rodrigue Wallace is a 73 year old [...] has been recommended repair in the past. UPDATED HISTORY AND PHYSICAL EXAMINATION SERVICE DATE: 04/21/2024 SERVICE TIME: 8:09 AM PHYSICAL EXAM MUST BE COMPLETED ON ADMISSION The History and Physical (completed in the past 30 days) has been reviewed and the patient has been examined. The contents accurately reflect the patient's condition with the following additions or revisions since the H&P was completed. Examination indicates no changes. This H&P can be found in the Electronic Medical Record. SIGNATURE: Sandy Cristobal MD PATIENT NAME: Rodrigue Wallace DATE: April 21, 2024 TIME: 8:09 AM PAGER: Sandy Cristobal MD [facility] vending machine mechanic,[facility] Clinical personal property appraiser, [facility] documented in this encounter [facility] 02-26-2024 Telephone encounter Note In hospital-diverticulitis. Sienna Celis [facility] 02-26-2024 Miscellaneous Notes In hospital-diverticulitis. Sienna Celis documented in this encounter [facility] 01-19-2024 History of Present illness Narrative Images [...] 16 - 288 ng/mL 19 Resulting Agency [facility] Resulting Agency Comment Performing Organization Information Site ID: [id number] Name: [facility] Address: [address] [place] [address], [address] [place] [id number] Director: Félix Elder MD Specimen Collected: 01/12/24 10:46 AM Performed by: MONA Last Resulted: 01/13/24 10:49 AM Received From: [facility] Result Received: 01/19/24 9:59 AM CBC and [...] 0.2 Resulting Agency [facility] Narrative Performed by [email or web address] FASTING:YES FASTING: YES Resulting Agency Comment Performing Organization Information Site ID: [id number] Name: [facility] Address: [place] [address] Director: Cristhian Murphy Specimen Collected: 12/31/23 8:39 AM Performed by: [email or web address] Last Resulted: 01/01/24 6:16 AM Received From: [facility] Result Received: 01/19/24 9:59 AM ASSESSMENT/PLAN: 1. Screening for malignant neoplasm of colon - ICD9: V76.51, ICD10: Z12.11 (primary diagnosis) - Due for screening. Colonoscopy 06/2017 revealed sigmoid diverticulosis, otherwise normal exam. Repeat was recommended in 5 years. FMH of CRC in her sister. - COLONOSCOPY [...] to surgery. - EGD DIAGNOSTIC Amparo Martinez APRN.CNP [facility] [address] [facility], [address] [place] [id number] Department: [phone] This note was generated with voice recognition software and may contain errors, including spelling, grammar, syntax and misrecognition of what was dictated, that are not fully corrected. documented in this encounter [facility] 11-05-2023 Telephone encounter Note OARRS reviewed, Rx sent into patient's pharmacy. [facility] 11-05-2023 Miscellaneous Notes OARRS reviewed, Rx sent into patient's pharmacy. documented in this encounter [facility] 12-11-2022 Miscellaneous Notes Received a fax from [employer] requesting C Peptide and Fasting glucose under 225 mg/dl done on the same day and A1C. Printed labs from 01/05/2003 and and printed A1C's from 01/27/13 & 04/26/22, faxed to [phone]. Confirmation received. documented in this encounter [facility] 12-05-2022 Miscellaneous Notes Received a fax from [employer] requesting copy of patient labs for C Peptide and fasting glucose. Faxed results, Confirmation received. documented in this encounter [facility] 11-06-2022 Miscellaneous Notes Received a form from [employer] [facility] for CGM and Pump supplies. Requesting last office notes within last 6 months. Printed notes from 04/26/22. Faxed completed form and notes. Confirmation received. documented in this encounter [facility] 07-04-2022 Miscellaneous Notes Received a fax from [facility] requesting last 2 office notes. Faxed notes from 09/26/21 and 04/26/22 to [phone]. Confirmation received. documented in this encounter [facility] 04-26-2022 Instructions Araceli Bullock APRN.FLAG MAKER - 04/26/2022 10:13 AM EDT Basal: MN 0.500-->0.425 9a 0.800-->0.700 Noon 0.700 5p 0.650 10p 0.450 Carb MN 18 10a 20 Sensitivity MN 50 Obtain labs Follow up with Dr. Hunter in 2 months documented in this encounter [facility] 04-26-2022 History of Present illness Narrative 72yo WF with h/o DM1 since age 56, on Medtronic 670G pump in 09/2019, hypoglycemia unawareness, neuropathy, HTN, HLP, osteoporosis, here for f/u, followed by Dr. Hunter and I. At [facility] we increased carb ratio as [...] Visit Medication Sig Blood-Glucose Meter,Continuous (DEXCOM G6 BOWLING ALLEY MANAGER) misc USE TO TEST BLOOD SUGARS 5 TIMES DAILY Blood-Glucose Sensor (MedWhat G6 SENSOR) shayy USE TO TEST BLOOD SUGARS 5 TIMES DAILY Blood-Glucose Transmitter (MedWhat G6 TRANSMITTER) shayy USE TO TEST BLOOD SUGARS 5 TIMES DAILY blood sugar diagnostic ([employer] NEXT TEST STRIPS) test strip USE TO TEST BLOOD SUGARS 5 TIMES DAILY carisoprodol (SOMA ORAL) Take by mouth. Lancets (ONETOUCH ULTRASOFT LANCETS) lancets Use to [...] daily Subcutaneous Insulin Pump (PARADIGM INSULIN PUMP) misc 523 Basal: 24:00- 00.35. 300-0.55; 0700-0.75 2300-0.375. [...] making from date of this visit. Araceli Bullock APRN.RHEA documented in this encounter [facility] 01-01-2022 Miscellaneous Notes Prescriptions faxed to [facility] as requested in below message. Confirmation received. Called patient to update. Rodrigue gave verbal understanding. Addended by: ARACELI BULLOCK on: 01/01/2022 01:54 PM Modules accepted: Orders Rx printed. Please fax and give patient a call to let her know we are sending this. Call placed to [facility] to inquire for a form for Dexcom G6. [facility] states we can fax a prescription to : [phone] and they will send us what form is needed. documented in this encounter [facility] 12-18-2009 History of Past i llness Narrative Problem Noted Date Resolved Date Diabetes mellitus type 1, un controlled, without complications 12/18/2009 08/23/2016 Type II or unspecified type diabetes mellitus without mention of complication, uncontrolled 07/22/2005 12/18/2009 Type II or unspecified type diabetes mellitus without mention of complication, not stated as uncontrolled 07/22/2005 documented as of this encounter (statuses as of 01/01/2022) [facility] History of Past illness Narrative* Problem Noted Date Resolved Date Diabetes mellitus type 1, un controlled, without complications 12/18/2009 08/23/2016 Type II or unspecified type diabetes mellitus without mention of complication, uncontrolled 07/22/2005 12/18/2009 Type II or unspecified type diabetes mellitus without mention of complication, not stated as uncontrolled 07/22/2005 documented as of this encounter (statuses as of 04/26/2022) [facility] History of Past illness Narrative* Problem Noted Date Resolved Date Diabetes mellitus type 1, un controlled, without complications 12/18/2009 08/23/2016 Type II or unspecified type diabetes mellitus without mention of complication, uncontrolled 07/22/2005 12/18/2009 Type II or unspecified type diabetes mellitus without mention of complication, not stated as uncontrolled 07/22/2005 documented as of this encounter (statuses as of 07/10/2022) [facility] History of Past illness Narrative* Problem Noted Date Resolved Date Diabetes mellitus type 1, un controlled, without complications 12/18/2009 08/23/2016 Type II or unspecified type diabetes mellitus without mention of complication, uncontrolled 07/22/2005 12/18/2009 Type II or unspecified type diabetes mellitus without mention of complication, not stated as uncontrolled 07/22/2005 documented as of this encounter (statuses as of 11/07/2022) [facility] History of Past illness Narrative* Problem Noted Date Resolved Date Diabetes mellitus type 1, un controlled, without complications 12/18/2009 08/23/2016 Type II or unspecified type diabetes mellitus without mention of complication, uncontrolled 07/22/2005 12/18/2009 Type II or unspecified type diabetes mellitus without mention of complication, not stated as uncontrolled 07/22/2005 documented as of this encounter (statuses as of 12/05/2022) [facility] History of Past illness Narrative* Problem Noted Date Resolved Date Diabetes mellitus type 1, un controlled, without complications 12/18/2009 08/23/2016 Type II or unspecified type diabetes mellitus without mention of complication, uncontrolled 07/22/2005 12/18/2009 Type II or unspecified type diabetes mellitus without mention of complication, not stated as uncontrolled 07/22/2005 documented as of this encounter (statuses as of 12/11/2022) [facility] note* Diagnosis 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) Type I (juvenile type) diabetes mellitus with other specified manifestations, not stated as uncontrolled Insulin pump status [facility]* Diagnosis 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)- Primary Type I (juvenile type) diabetes mellitus with other specified manifestations, not stated as uncontrolled Insulin pump status Insulin pump titration Fitting and adjustment of insulin pump FDC (current) use of insulin (HCC) [facility]* Diagnosis Secondary osteoarthritis, right shoulder documented in this encounter [facility] note* Diagnosis Screening for malignant neoplasm of colon- Primary Iron deficiency anemia, unspecified iron deficiency anemia type Hiatal hernia Diaphragmatic hernia without mention of obstruction or gangrene Family history of colon cancer Family history of malignant neoplasm of gastrointestinal tract [facility]* Diagnosis 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 [facility]* Diagnosis Rectal cancer (HCC)- Primary Malignant neoplasm of rectum [facility]* Diagnosis Rectal cancer (HCC) Malignant neoplasm of rectum documented in this encounter [facility] note* Diagnosis Rectal cancer (HCC) Malignant neoplasm of rectum documented in this encounter [facility] note* Diagnosis Secondary hypertension- Primary Other secondary hypertension, unspecified Iron deficiency anemia, unspecified iron deficiency anemia type Screening for malignant neoplasm of colon Hiatal hernia Diaphragmatic hernia without mention of obstruction or gangrene Colonic mass Other specified disorder of intestines Rectal cancer (HCC)- Primary Malignant neoplasm of rectum documented in this encounter [facility] note* Diagnosis Rectal cancer (HCC)- Primary Malignant neoplasm of rectum Rectal cancer (HCC) Malignant neoplasm of rectum documented in this encounter [facility] note* Diagnosis Rectal cancer (HCC)- Primary Malignant neoplasm of rectum documented in this encounter [facility] note* Diagnosis Rectal cancer (HCC)- Primary Malignant neoplasm of rectum documented in this encounter [facility] note* Diagnosis Malignant neoplasm of sigmoid colon (HCC)- Primary Malignant neoplasm of sigmoid colon Rectal cancer (HCC) Malignant neoplasm of rectum documented in this encounter [facility] note* Diagnosis Follow-up examination after colorectal surgery- Primary Follow-up examination, following other surgery documented in this encounter [facility] note* Diagnosis Rectal cancer (HCC)- Primary Malignant neoplasm of rectum documented in this encounter [facility] note* Diagnosis Malignant neoplasm of sigmoid colon (HCC)- Primary Malignant neoplasm of sigmoid colon documented in this encounter [facility] note* Diagnosis Malignant neoplasm of sigmoid colon (HCC)- Primary Malignant neoplasm of sigmoid colon documented in this encounter [facility] note* Diagnosis Malignant neoplasm of sigmoid colon (HCC)- Primary Malignant neoplasm of sigmoid colon documented in this encounter [facility] for referral (narrative)* Outpatient Procedure (Routine) - Authorized Specialty Diagnoses / Procedures Referred By Dre t Referred To Contact [facility] Diagnoses Iron deficiency anemia, unspecified iron deficiency anemia type Hiatal hernia Procedures EGD DIAGNOSTIC ESOPHAGOGASTRODUODENOSC OPY TRANSORAL DIAGNOSTIC Amparo Martinez APRN.CNP [address] [place] [address] [address] [place] [address] [facility] [address] [place] [address] Referral ID Status Reason Start Date Expiration Date Visits Requested Visits Authorized [id number] Authorized Auto-Generat ed Referral 01/19/2024 01/18/2025 1 1 * Outpatient Procedure (Routine) - Authorized Specialty Diagnoses / Procedures Referred By Contac t Referred To Contact [facility] Diagnoses Iron deficiency anemia, unspecified iron deficiency anemia type Screening for malignant neoplasm of colon Procedures COLONOSCOPY SCREENING COLONOSCOPY FLX DX W/COLLJ SPEC WHEN Amparo Arora APRN.CNP [address] [facility] [address] [place] [id number] [facility] [address] [place] [id number] Referral ID Status Reason Start Date Expiration Date Visits Requested Visits Authorized [id number] Authorized Auto-Generat ed Referral 01/19/2024 01/18/2025 1 1 [facility] for referral (narrative)* Outpatient Procedure (Routine) - Closed Specialty Diagnoses / Procedures Referred By Contac t Referred To Contact [facility] Diagnoses Rectal cancer (HCC) Procedures SIGMOIDOSCOPY SIGMOIDOSCOPY FLX DX W/COLLJ SPEC BR/[place] [address] [place] [address] [place] [phone] Referral ID Status Reason Start Date Expiration Date V isits Requested Visits Authorized [id number] Closed Auto-Generate d Referral 04/27/2024 04/27/2025 1 1 [facility] for referral (narrative)* Diagnostic Procedure Only (Routine) - New Request Specialty Diagnoses / Procedures Referred By Contac t Referred To Contact MOLECULAR & FUNCTIONAL IMAGING Diagnoses Malignant neoplasm of sigmoid colon (HCC) Procedures NM BONE WHOLE BODY BONE &/JOINT IMAGING WHOLE BODY Melecio Vazquez MD [address] [place] [address] [place] [address] [facility] [address] [place] [phone] Referral ID Status Reason Start Date Expiration Date Visits Requested Visits Authorized [id number] New Request Auto-Generat ed Referral 08/05/2025 1 1 [facility] for visit Narrative* Outpatient Procedure (Routine) - Closed Specialty Diagnoses / Procedures Referred By Contac t Referred To Contact [facility] Diagnoses Rectal cancer (HCC) Procedures SIGMOIDOSCOPY SIGMOIDOSCOPY FLX DX W/COLLJ SPEC BR/[place] [address] [address] [place] [phone] [facility] [address] [place] [address] Referral ID Status Reason Start Date Expiration Date V isits Requested Visits Authorized [id number] Closed Auto-Generate d Referral 04/27/2024 04/27/2025 1 1 [facility] for visit Narrative* Outpatient Procedure (Routine) - Ref Not Required Specialty Diagnoses / Procedures Referred By Contac t Referred To Contact ENDOSCOPY Diagnoses Iron deficiency anemia, unspecified iron deficiency anemia type Hiatal hernia Procedures EGD DIAGNOSTIC ESOPHAGOGASTRODUODENOSCOPY TRANSORAL DIAGNOSTIC Amparo Martinez APRN.FLAG MAKER [address] [place] [address] Sandy Cristobal I, MD [address] [place] [address] Referral ID Status Reason Start Date Expiration Date Visits Requested Visits Authorized [id number] Ref Not Required Auto-Generat ed Referral 01/19/2024 01/18/2025 1 1 [facility] Summary Purpose Family History No Family History Records FoundNo Family History Records FoundNo Family History Records FoundNo Family History Records FoundNo Family History Records FoundNo Family History Records FoundNo Family History Records FoundNo Family History Records FoundNo Family History Records FoundNo Family History Records FoundNo Family History Records Found Advance Directives Documents on File Type Date Recorded Patient Station Mechanic Helper Expl anation Advance Directive(s) 04/15/2019 8:02 AM Advance Directive(s) 06/30/2017 9:10 AM Advance Directive(s) 03/01/2016 8:02 AM Advance Directive(s) 01/26/2016 7:31 AM Advance Directive(s) 11/02/2015 8:54 AM Advance Directive(s) 11/02/2015 9:04 AM Documents on File Type Date Recorded Patient Station Mechanic Helper Expl anation Advance Directive(s) 11/02/2015 8:54 AM Advance Directive(s) 11/02/2015 9:04 AM Documents on File Type Date Recorded Patient Station Mechanic Helper Expl anation Advance Directive(s) 11/02/2015 9:04 AM Advance Directive(s) 11/02/2015 8:54 AM Documents on File Type Date Recorded Patient Station Mechanic Helper Expl anation Advance Directive(s) 11/02/2015 9:04 AM Advance Directive(s) 11/02/2015 8:54 AM Documents on File Type Date Recorded Patient Station Mechanic Helper Expl anation Advance Directive(s) 11/02/2015 8:54 AM Documents on File Type Date Recorded Patient Station Mechanic Helper Expl anation Advance Directive(s) 11/02/2015 8:54 AM Hospital Course Note MR[id number]: Rodrigue Wallace Admitted: 06/15/2018 Discharged: 06/17/2018 Date of : 1950 Physician: Bryce Bolton MD DISCHARGE SUMMARYHOSPITAL COURSE: The patient is a 68-year-old female with past medicalhistory significant for newly diagnosed hypertension and diabetes, [facility]. The patient was found tohave high blood pressure 230/120 at the Cardiology office from where [facility]was [facility] and then transferred to the [facility]. At the timeof this presentation, [...] medication,lisinopril and amlodipin (more content not included)... Reason for Referral Specialty Diagnoses / Procedures Referred By Contac t Referred To Contact CT IMAGING Diagnoses Rectal cancer (HCC) Procedures CT CHEST WO IVCON DIAGNOSTIC COMPUTED TOMOGRAPHY THORAX W/[place] [address] [place] [address] [place] [address] Referral ID Status Reason Start Date Expiration Date V isits Requested Visits Authorized [id number] Closed Auto-Generate d Referral 04/27/2024 05/27/2025 1 1 Specialty Diagnoses / Procedures Referred By Contac t Referred To Contact MR IMAGING Diagnoses Rectal cancer (HCC) Procedures MRI RECTUM WO/W IVCON MRI PELVIS W/O & W/[place] [address] [place] [address] Mr Imaging [id number] Referral ID Status Reason Start Date Expiration Date Visits Requested Visits Authorized [id number] Authorized Auto-Generat ed Referral 04/27/2024 05/27/2025 1 1 Specialty Diagnoses / Procedures Referred By Contac t Referred To Contact [facility] Diagnoses Rectal cancer (HCC) Procedures SIGMOIDOSCOPY SIGMOIDOSCOPY FLX DX W/COLLJ SPEC BR/[place] [address] [place] [address] [facility] [address] [place] [phone] Referral ID Status Reason Start Date Expiration Date Visits Requested Visits Authorized [id number] Authorized Auto-Generat ed Referral 04/27/2024 04/27/2025 1 1 Specialty Diagnoses / Procedures Referred By Contac t Referred To Contact Colon and Rectal Surgery Diagnoses Iron deficiency anemia, unspecified iron deficiency anemia type Colonic mass Procedures CONSULT TO COLO-RECTAL SURGERY OFFICE/OUTPATIENT [facility] 60 [place] [address] [place] [address] [address] Phone: [phone] Referral ID Status Reason Start Date Expiration Date Visits Requested Visits Authorized [id number] Authorized PCP Requested Referral 04/21/2024 04/21/2025 1 1 Specialty Diagnoses / Procedures Referred By Contac t Referred To Contact ENDOSCOPY Diagnoses Iron deficiency anemia, unspecified iron deficiency anemia type Hiatal hernia Procedures EGD DIAGNOSTIC ESOPHAGOGASTRODUODENOSCOPY TRANSORAL DIAGNOSTIC Amparo Martinez APRN.FLAG MAKER [address] [place] [address] Sandy Cristobal I, MD [address] [facility] [address] [place] [address] Referral ID Status Reason Start Date Expiration Date Visits Requested Visits Authorized [id number] Ref Not Required Auto-Generat ed Referral 01/19/2024 01/18/2025 1 1 Specialty Diagnoses / Procedures Referred By Contac t Referred To Contact ENDOSCOPY Diagnoses Iron deficiency anemia, unspecified iron deficiency anemia type Screening for malignant neoplasm of colon Procedures COLONOSCOPY SCREENING COLONOSCOPY FLX DX W/COLLJ SPEC WHEN PFRMD Amparo Martinez APRN.FLAG MAKER [address] [place] [address] Sandy Cristobal I, MD [address] [facility] [address] [place] [address] Referral ID Status Reason Start Date Expiration Date Visits Requested Visits Authorized [id number] Ref Not Required Auto-Generat ed Referral 01/19/2024 01/18/2025 1 1 Specialty Diagnoses / Procedures Referred By Contac t Referred To Contact Oncology Diagnoses Rectal cancer (HCC) Procedures CONSULT TO ONCOLOGY OFFICE/OUTPATIENT [facility] [address] [place] [address] [place] [address] Referral ID Status Reason Start Date Expiration Date Visits Requested Visits Authorized [id number] Authorized PCP Requested Referral 06/09/2024 06/09/2025 1 1 Additional Source Comments INFORMATION SOURCE (unrecogn ized section and content) DATE CREATED AUTHOR 08/04/2018 [facility] DATE CREATED AUTHOR AUTHOR'S ORGANIZ ATION 08/31/2018 [facility] DATE CREATED AUTHOR AUTHOR'S ORGANIZ ATION 07/27/2021 [facility] DATE CREATED AUTHOR AUTHOR'S ORGANIZ ATION 11/15/2021 [facility] DATE CREATED AUTHOR AUTHOR'S ORGANIZ ATION 09/21/2022 [facility] DATE CREATED AUTHOR AUTHOR'S ORGANIZ ATION 04/24/2024 [facility] DATE CREATED AUTHOR AUTHOR'S ORGANIZ ATION 05/18/2024 [facility] DATE CREATED AUTHOR AUTHOR'S ORGANIZ ATION 06/01/2024 [facility] DATE CREATED AUTHOR AUTHOR'S ORGANIZ ATION 06/22/2024 [facility] DATE CREATED AUTHOR AUTHOR'S ORGANIZ ATION 06/22/2024 [facility] EPIC DATE CREATED AUTHOR AUTHOR'S ORGANIZ ATION 07/08/2024 [facility] Source Comments (unrecognize d section and content) In the event this informatio n is protected by the Federal Confidentiality of Alcohol and Drug Abuse Patient Records regulations: The Federal rules restrict any use of the information to criminally investigate or prosecute any alcohol or drug abuse patient.[facility] the event this information is protected by the Federal Confidentiality of Alcohol and Drug Abuse Patient Records regulations: The Federal rules restrict any use of the information to criminally investigate or prosecute any alcohol or drug abuse patient.[facility] HospitalIn the event this information is protected by the Federal Confidentiality of Alcohol and Drug Abuse Patient Records regulations: The Federal rules restrict any use of the information to criminally investigate or prosecute any alcohol or drug abuse patient.[facility] HospitalIn the event this information is protected by the Federal Confidentiality of Alcohol and Drug Abuse Patient Records regulations: The Federal rules restrict any use of the information to criminally investigate or prosecute any alcohol or drug abuse patient.[facility] HospitalIn the event this information is protected by the Federal Confidentiality of Alcohol and Drug Abuse Patient Records regulations: The Federal rules restrict any use of the information to criminally investigate or prosecute any alcohol or drug abuse patient.[facility] HospitalIn the event this information is protected by the Federal Confidentiality of Alcohol and Drug Abuse Patient Records regulations: The Federal rules restrict any use of the information to criminally investigate or prosecute any alcohol or drug abuse patient.[facility] HospitalIn the event this information is protected by the Federal Confidentiality of Alcohol and Drug Abuse Patient Records regulations: The Federal rules restrict any use of the information to criminally investigate or prosecute any alcohol or drug abuse patient.[facility] HospitalIn the event this information is protected by the Federal Confidentiality of Alcohol and Drug Abuse Patient Records regulations: The Federal rules restrict any use of the information to criminally investigate or prosecute any alcohol or drug abuse patient.[facility] HospitalIn the event this information is protected by the Federal Confidentiality of Alcohol and Drug Abuse Patient Records regulations: The Federal rules restrict any use of the information to criminally investigate or prosecute any alcohol or drug abuse patient.[facility] HospitalIn the event this information is protected by the Federal Confidentiality of Alcohol and Drug Abuse Patient Records regulations: The Federal rules restrict any use of the information to criminally investigate or prosecute any alcohol or drug abuse patient.[facility] HospitalIn the event this information is protected by the Federal Confidentiality of Alcohol and Drug Abuse Patient Records regulations: The Federal rules restrict any use of the information to criminally investigate or prosecute any alcohol or drug abuse patient.[facility] HospitalIn the event this information is protected by the Federal Confidentiality of Alcohol and Drug Abuse Patient Records regulations: The Federal rules restrict any use of the information to criminally investigate or prosecute any alcohol or drug abuse patient.[facility] HospitalIn the event this information is protected by the Federal Confidentiality of Alcohol and Drug Abuse Patient Records regulations: The Federal rules restrict any use of the information to criminally investigate or prosecute any alcohol or drug abuse patient.[facility] HospitalIn the event this information is protected by the Federal Confidentiality of Alcohol and Drug Abuse Patient Records regulations: The Federal rules restrict any use of the information to criminally investigate or prosecute any alcohol or drug abuse patient.[facility] HospitalIn the event this information is protected by the Federal Confidentiality of Alcohol and Drug Abuse Patient Records regulations: The Federal rules restrict any use of the information to criminally investigate or prosecute any alcohol or drug abuse patient.[facility] HospitalIn the event this information is protected by the Federal Confidentiality of Alcohol and Drug Abuse Patient Records regulations: The Federal rules restrict any use of the information to criminally investigate or prosecute any alcohol or drug abuse patient.[facility] HospitalIn the event this information is protected by the Federal Confidentiality of Alcohol and Drug Abuse Patient Records regulations: The Federal rules restrict any use of the information to criminally investigate or prosecute any alcohol or drug abuse patient.[facility] HospitalIn the event this information is protected by the Federal Confidentiality of Alcohol and Drug Abuse Patient Records regulations: The Federal rules restrict any use of the information to criminally investigate or prosecute any alcohol or drug abuse patient.[facility] HospitalIn the event this information is protected by the Federal Confidentiality of Alcohol and Drug Abuse Patient Records regulations: The Federal rules restrict any use of the information to criminally investigate or prosecute any alcohol or drug abuse patient.[facility] HospitalIn the event this information is protected by the Federal Confidentiality of Alcohol and Drug Abuse Patient Records regulations: The Federal rules restrict any use of the information to criminally investigate or prosecute any alcohol or drug abuse patient.[facility] HospitalIn the event this information is protected by the Federal Confidentiality of Alcohol and Drug Abuse Patient Records regulations: The Federal rules restrict any use of the information to criminally investigate or prosecute any alcohol or drug abuse patient.[facility] HospitalIn the event this information is protected by the Federal Confidentiality of Alcohol and Drug Abuse Patient Records regulations: The Federal rules restrict any use of the information to criminally investigate or prosecute any alcohol or drug abuse patient.[facility] HospitalIn the event this information is protected by the Federal Confidentiality of Alcohol and Drug Abuse Patient Records regulations: The Federal rules restrict any use of the information to criminally investigate or prosecute any alcohol or drug abuse patient.[facility] HospitalIn the event this information is protected by the Federal Confidentiality of Alcohol and Drug Abuse Patient Records regulations: The Federal rules restrict any use of the information to criminally investigate or prosecute any alcohol or drug abuse patient.[facility] HospitalIn the event this information is protected by the Federal Confidentiality of Alcohol and Drug Abuse Patient Records regulations: The Federal rules restrict any use of the information to criminally investigate or prosecute any alcohol or drug abuse patient.[facility] HospitalIn the event this information is protected by the Federal Confidentiality of Alcohol and Drug Abuse Patient Records regulations: The Federal rules restrict any use of the information to criminally investigate or prosecute any alcohol or drug abuse patient.[facility] HospitalIn the event this information is protected by the Federal Confidentiality of Alcohol and Drug Abuse Patient Records regulations: The Federal rules restrict any use of the information to criminally investigate or prosecute any alcohol or drug abuse patient.[facility] HospitalIn the event this information is protected by the Federal Confidentiality of Alcohol and Drug Abuse Patient Records regulations: The Federal rules restrict any use of the information to criminally investigate or prosecute any alcohol or drug abuse patient.[facility] Reason for Visit (unrecogniz ed section and content) Reason Comments Dexcom Reason Comments Diabetes Reason Comments Patient Update Diabetes Management & Supplies Reason Comments Forms [employer] Reason Comments Patient Update Solara Reason Onset Date Comments Med Refill 11/05/2023 Reason Comments Established Patient Colon consult Reason Comments Patient Update Reason Comments New Patient rectosigmoid cancer Specialty Diagnoses / Procedures Referred By Dre guillen Referred To Contact CT IMAGING Diagnoses Rectal cancer (HCC) Procedures CT CHEST WO IVCON DIAGNOSTIC COMPUTED TOMOGRAPHY THORAX W/[place] [address] [place] [address] [place] [address] Referral ID Status Reason Start Date Expiration Date V isits Requested Visits Authorized [id number] Closed Auto-Generate d Referral 04/27/2024 05/27/2025 1 1 Specialty Diagnoses / Procedures Referred By Contac t Referred To Contact MR IMAGING Diagnoses Rectal cancer (HCC) Procedures MRI RECTUM WO/W IVCON MRI PELVIS W/O & W/[place] [address] [place] [address] [place] [address] Referral ID Status Reason Start Date Expiration Date V isits Requested Visits Authorized [id number] Closed Auto-Generate d Referral 04/27/2024 05/27/2025 1 1 Reason Comments Rectal Cancer Reason Comments Research [facility] Research Pre-Scr eening ([id number]) Reason Comments Colon Cancer New patient consulta tion Specialty Diagnoses / Procedures Referred By Contac t Referred To Contact Oncology Diagnoses Rectal cancer (HCC) Procedures CONSULT TO ONCOLOGY OFFICE/OUTPATIENT [facility] [address] [place] [address] [address] [facility] [address] [place] [address] Referral ID Status Reason Start Date Expiration Date V isits Requested Visits Authorized [id number] Closed PCP Requested Referral 06/09/2024 06/09/2025 1 1 Reason Comments Medication Update Capecitabine Reason Comments Post Op Reason Comments Care Coordination Medication update Reason Comments First Time Treatment Education Reason Comments Colon Cancer Follow up Reason Comments Care Coordination Not feeling well Reason Comments Colon Cancer Care Teams (unrecognized sec tion and content) Jute Bag Cutting Machine Operator Relationship Specialty Start Date End Date Howard Santiago II PCP - General Internal Medicine 06/07/11 Jute Bag Cutting Machine Operator Relationship Specialty Start Date End Date Howard Santiago II PCP - General Internal Medicine 06/07/11 Jute Bag Cutting Machine Operator Relationship Specialty Start Date End Date Howard Santiago II PCP - General Internal Medicine 06/07/11 Jute Bag Cutting Machine Operator Relationship Specialty Start Date End Date Howard Santiago MD [address] [facility] [address] [place] [address] PCP - General Internal Medicine 01/27/23 Howard Santiago MD [address] [place] [address] PCP - ACO Reach 02/13/23 Jute Bag Cutting Machine Operator Relationship Specialty Start Date End Date Howard Santiago II, MD PCP - General Internal Medicine 06/07/11 Jute Bag Cutting Machine Operator Relationship Specialty Start Date End Date Howard Santiago II, MD PCP - General Internal Medicine 06/07/11 Jute Bag Cutting Machine Operator Relationship Specialty Start Date End Date Howard Santiago II, MD PCP - General Internal Medicine 06/07/11 Jute Bag Cutting Machine Operator Relationship Specialty Start Date End Date Howard Santiago II, MD PCP - General Internal Medicine 06/07/11 Jute Bag Cutting Machine Operator Relationship Specialty Start Date End Date Howard Santiago II, MD PCP - General Internal Medicine 06/07/11 Jute Bag Cutting Machine Operator Relationship Specialty Start Date End Date Hoawrd Santiago II, MD PCP - General Internal Medicine 06/07/11 Jute Bag Cutting Machine Operator Relationship Specialty Start Date End Date Howard Santiago II, MD PCP - General Internal Medicine 06/07/11 Jute Bag Cutting Machine Operator Relationship Specialty Start Date End Date Howard Santiago II, MD PCP - General Internal Medicine 06/07/11 Jute Bag Cutting Machine Operator Relationship Specialty Start Date End Date Howard Santiago II, MD PCP - General Internal Medicine 06/07/11 Jute Bag Cutting Machine Operator Relationship Specialty Start Date End Date Howard Santiago II, MD PCP - General Internal Medicine 06/07/11 Jute Bag Cutting Machine Operator Relationship Specialty Start Date End Date Howard Santiago II, MD PCP - General Internal Medicine 06/07/11 Jute Bag Cutting Machine Operator Relationship Specialty Start Date End Date Howard Santiago II, MD PCP - General Internal Medicine 06/07/11 Janneth Fan, LAURA [address] [facility] [place] [address] Specialty Telegraph Operator Hematology/Oncology 06/15/24 Melecio Vazquez MD [address] [facility] [place] [address] Physician Hematology/Oncology 06/15/24 Janee Dailey PA-C [address] [facility] [place] [address] Physician Glass Cutting Machine Operator Hematology/Oncology 06/15/24 Jute Bag Cutting Machine Operator Relationship Specialty Start Date End Date Howard Santiago II, MD PCP - General Internal Medicine 06/07/11 Janneth Fan RN [address] [facility] [place] [address] Specialty Telegraph Operator Hematology/Oncology 06/15/24 Melecio Vazquez MD [address] [facility] [place] [address] Physician Hematology/Oncology 06/15/24 Janee Dailey PA-C [address] [facility] [place] [address] Physician Glass Cutting Machine Operator Hematology/Oncology 06/15/24 Jute Bag Cutting Machine Operator Relationship Specialty Start Date End Date Howard Santiago II, MD PCP - General Internal Medicine 06/07/11 Janneth Fan RN [address] [facility] [place] [address] Specialty Telegraph Operator Hematology/Oncology 06/15/24 Melecio Vazquez MD [address] [facility] [place] [address] Physician Hematology/Oncology 06/15/24 Janee Dailey PA-C [address] [facility] [place] [address] Physician Glass Cutting Machine Operator Hematology/Oncology 06/15/24 Jute Bag Cutting Machine Operator Relationship Specialty Start Date End Date Howard Santiago II, MD PCP - General Internal Medicine 06/07/11 Janneth Fan RN [address] [facility] [place] [address] Specialty Telegraph Operator Hematology/Oncology 06/15/24 Melecio Vazquez MD [address] [facility] [place] [address] Physician Hematology/Oncology 06/15/24 Janee Dailey PA-C [address] [facility] [place] [address] Physician Glass Cutting Machine Operator Hematology/Oncology 06/15/24 Jute Bag Cutting Machine Operator Relationship Specialty Start Date End Date Howard Santiago II, MD PCP - General Internal Medicine 06/07/11 Janneth Fan, RN [address] [facility] [place] [address] Specialty Telegraph Operator Hematology/Oncology 06/15/24 Melecio Vazquez MD [address] [facility] [place] [address] Physician Hematology/Oncology 06/15/24 Janee Dailey PA-C [address] [facility] [address] Physician Glass Cutting Machine Operator Hematology/Oncology 06/15/24 Jute Bag Cutting Machine Operator Relationship Specialty Start Date End Date Howard Santiago II, MD PCP - General Internal Medicine 06/07/11 Janneth Fan RN [address] [facility] [place] [address] Specialty Telegraph Operator Hematology/Oncology 06/15/24 Melecio Vazquez MD [address] [facility] [place] [address] Physician Hematology/Oncology 06/15/24 Janee Dailey PA-C [address] [facility] [place] [address] Physician Glass Cutting Machine Operator Hematology/Oncology 06/15/24 Jute Bag Cutting Machine Operator Relationship Specialty Start Date End Date Howard Santiago MD [address] [place] [address] PCP - General Internal Medicine 01/27/23 Stephanie Zheng DO [address] [place] [address] PCP - ACO Reach 11/21/23 Jute Bag Cutting Machine Operator Relationship Specialty Start Date End Date Howard Santiago II, MD PCP - General Internal Medicine 06/07/11 Janneth Fan RN [address] [facility] [place] [address] Specialty Telegraph Operator Hematology/Oncology 06/15/24 Melecio Vazquez MD [address] [place] [address] [place] [address] Physician Hematology/Oncology 06/15/24 Janee Dailey PA-C [address] [place] [address] [place] [address] Physician Glass Cutting Machine Operator Hematology/Oncology 06/15/24 Jute Bag Cutting Machine Operator Relationship Specialty Start Date End Date Howard Santiago II, MD PCP - General Internal Medicine 06/07/11 Janneth Fan RN [address] [facility] [place] [address] Specialty Telegraph Operator Hematology/Oncology 06/15/24 Melecio Vazquez MD [address] [place] [address] [place] [address] Physician Hematology/Oncology 06/15/24 Janee Dailey PA-C [address] [place] [address] [place] [address] Physician Glass Cutting Machine Operator Hematology/Oncology 06/15/24 FOR RECORDS PERTAINING TO PATIENTS WHO ARE [...] BE BASED ON THE PRIMARY CLINICAL RECORDS. [employer] [facility]. provides no warranty or guarantee of the accuracy or completeness of information in this document.
== END 2024-07-13 08:51 | disposition home or self-care (01) ==
LOC: NM 08:50
PROVIDERS: PCP Internal Medicine
DX: C18.7 Malignant neoplasm of sigmoid colon (principal)
CPT/HCPCS: 78306; A9503

== ENCOUNTER 2024-12-06 14:17 | Outpatient (OUT) | payer MEDICARE, OTHER, SELFPAY ==
--- NOTE | 2024-12-06 14:24 | XR_ITS ---
[facility] [place] [id number] Patient Name: RODRIGUE WALLACE MRN: [id number] date: 1950 Sex: F Assigned Patient Location: [facility] Current Patient Location: [facility] Accession/Order Number: [id number] Exam Date: 12/06/2024 15:20 Report Date: 12/06/2024 15:20 At the request of: ALAN VILCHIS Procedure: XR ribs LT min 3V w CXR1V PA CHEST WITH 3 VIEWS LEFT RIBS: CLINICAL HISTORY: Rib Pain Left Side COMPARISON: Chest 09/17/2023 FINDINGS: Heart normal in size. Moderate size hiatal hernia. No consolidation pneumothorax pleural effusion or free air. No displaced left-sided rib fracture. XR/XR ribs LT min 3V w CXR1V IMPRESSION: No acute findings. Impression dictated by: Bharat Tinsley Jr.OSaima12/06/2024 3:20 PM Dictation Location: [place] [address] Electronically authenticated by: [id number] Y Date: 12/06/2024 15:20
== END 2024-12-06 14:18 | disposition home or self-care (01) ==
LOC: RAD 14:19
PROVIDERS: PCP Internal Medicine; Visit Provider Physician Assistant
DX: R07.81 Pleurodynia (principal); R09.89 Other specified symptoms and signs involving the circulatory and respiratory systems
CPT/HCPCS: 71101